=== PATIENT | male | born 1965 | race Caucasian/White ===

== ENCOUNTER 2017-12-30 13:18 | Emergency (ER) | payer OTHER ==
[~2017-12-30] VITALS: Ht 190.5 cm; Wt 120.0 kg
[~2017-12-30 13:18] MED LIST: ASPI-435 PO; CALC0.5C2 PO; CALC1TAB23 PO; CHOL1CAP57 PO; CLON0.5T3 PO; EPOE20005 SC; FLUD0.1T10 PO; FOLI1TAB8 PO; GABA100C13 PO; LANT1000 PO; LOSA1TAB PO; METR250T PO; MIDO10TA PO; OMEG5CAP PO; ROSU5TAB PO; SENN-91 PO; SORB70SO6 PO; TAMS0.4C38 PO; [UNRECOGNIZED DRUG - OTHER] PO
[2017-12-30 13:21] VITALS: TEMP 36.6; Ht 190.5 cm; Wt 120.0 kg
--- NOTE | 2017-12-30 14:00 | EMERGENCY ROOM VISIT NOTE ---
History First contact with patient: 13:30 Chief Complaint: WOUND INFECTION Stated Complaint: INFECTING/ PAIN - BACK History of Present Illness The patient is a 52 year old male who presents to the Emergency Room with complaints of skin draining abscess and infection that has been there since Tuesday. Was seen in [facility] for drainage and culture, staph infection, they told him to seek immediate care at the ED. Unclear what the results of the culture are. Pt denies constitutional symptoms of fever, fatigue , myalgia, also denies difficulty breathing or chest pain or diarrhea or vomiting. Says his daughter, who is his store clerk checker, changed the dressing this morning and says it is looking worse. Reports to the attending that he experienced chills and fevers last night. Review of Systems ROS See HPI for pertinent positives and negatives. Past Medical/Surgical History Medical Problems: (1) Autonomic neuropathy (2) Diabetes (3) Gastroparesis (4) Peritoneal dialysis catheter in situ (5) Peritoneal dialysis status (6) Pneumonia (7) Renal failure Surgical Problems: (1) Hx of cataract surgery Family History Cancer Diabetes mellitus Heart disease Hypertension Social History Smoking Status: Never Smoker Marital Status: Housing Status: lives with family Current/Historical Medications Scheduled Amitriptyline HCl (Amitriptyline HCl), 1 TAB PO HS Amlodipine Besylate (Amlodipine Besylate), 1 TAB PO DAILY Aspirin (Aspirin 81), 1 TAB PO QAM B-Complex W/ C & Folic Acid (Nephro-Ron Rx), 1 TAB PO DAILY Capsaicin (Capsaicin), 1 APPLN TOP TID Cephalexin (Keflex), 1 CAP PO BID Cholecalciferol (Vitamin D3), 1 CAP PO QPM Ferric Citrate (Auryxia), 3 TAB PO TID Fluticasone Propionate (Fluticasone Propionate), 2 SPRAYS MOHAMUD DAILY Folic Acid (Folvite), 400 MCG PO DAILY Hydroxyzine HCl (Hydroxyzine HCl), 12.5 MG PO HS Insulin Glargine (Lantus), 42 UNITS SC QPM Insulin Lispro (Human) (Humalog Kwikpen), 14 UNITS SC WM Losartan Potassium (Cozaar), 1 TAB PO QPM Metoprolol Tartrate (Metoprolol Tartrate), 1 TAB PO BID [place]-3 Fatty Acids (Fish Oil 1200 mg), 1 CAP PO QAM Pregabalin (Lyrica), 1 CAP PO DAILY Rosuvastatin Calcium (Rosuvastatin Calcium), 1 TAB PO QPM Sennosides-Docusate Sodium (Senna S), 1 TAB PO BID Tamsulosin HCl (Tamsulosin HCl), 1 CAP PO HS Triamcinolone Acet (Triamcinolone Acetonide), 1 APPLN TOP BID Trimethoprim/Sulfamethoxazole (Bactrim 400MG/80MG), 1 TAB PO Q24H Physical Exam Vital Signs Date Time Temp Pulse Resp B/P (MAP) Pulse Ox O2 Delivery O2 Flow Rate FiO2 12/30/17 15:33 74 18 172/94 97 Room Air 12/30/17 14:18 76 18 98 Room Air 12/30/17 14:01 77 12/30/17 14:00 183/85 12/30/17 13:21 36.6 83 18 152/66 96 Room Air Physical Exam GENERAL: Awake, alert, in no distress HENT: Normocephalic, atraumatic. EYES: Normal conjunctiva. Sclera non-icteric. NECK: Supple. FROM. No JVD. RESPIRATORY: Clear to auscultation. CARDIAC: Regular rate, normal rhythm. Extremities warm and well perfused. Pulses equal. ABDOMEN: Soft, non-distended. No tenderness to palpation. No rebound or guarding. No masses. MUSCULOSKELETAL: 6x3cm indurated region, minimal discharge on superior portion of wound, no fluctuance on left mid-upper back. NEURO: No motor deficits noted. SKIN: No rash or jaundice noted. Medical Decision & Procedures Laboratory Results 12/30/17 14:25 Red Blood Count 3.58, Mean Corpuscular Volume 91.3, Mean Corpuscular Hemoglobin 31.3, Mean Corpuscular Hemoglobin Concent 34.3, Mean Platelet Volume 9.6, Neutrophils (%) (Auto) 74.7, Lymphocytes (%) (Auto) 12.7, Monocytes (%) (Auto) 7.7, Eosinophils (%) (Auto) 4.5, Basophils (%) (Auto) 0.2, Neutrophils # (Auto) 9.20, Lymphocytes # (Auto) 1.56, Monocytes # (Auto) 0.95, Eosinophils # (Auto) 0.55, Basophils # (Auto) 0.02 3/30/18 14:25 Test 12/30/17 14:25 White Blood Count 12.30 K/uL (4.8-10.8) Red Blood Count 3.58 M/uL (4.7-6.1) Hemoglobin 11.2 g/dL (14.0-18.0) Hematocrit 32.7 % (42-52) Mean Corpuscular Volume 91.3 fL (80-100) Mean Corpuscular Hemoglobin 31.3 pg (25-34) Mean Corpuscular Hemoglobin Concent 34.3 g/dl (32-36) Platelet Count 306 K/uL (130-400) Mean Platelet Volume 9.6 fL (7.4-10.4) Neutrophils (%) (Auto) 74.7 % Lymphocytes (%) (Auto) 12.7 % Monocytes (%) (Auto) 7.7 % Eosinophils (%) (Auto) 4.5 % Basophils (%) (Auto) 0.2 % Neutrophils # (Auto) 9.20 K/uL (1.4-6.5) Lymphocytes # (Auto) 1.56 K/uL (1.2-3.4) Monocytes # (Auto) 0.95 K/uL (0.11-0.59) Eosinophils # (Auto) 0.55 K/uL (0-0.5) Basophils # (Auto) 0.02 K/uL (0-0.2) RDW Standard Deviation 44.6 fL (36.4-46.3) RDW Coefficient of Variation 13.5 % (11.5-14.5) Immature Granulocyte % (Auto) 0.2 % Immature Granulocyte # (Auto) 0.02 K/uL (0.00-0.02) Prothrombin Time 12.1 SECONDS (9.0-12.0) Prothromb Time International Ratio 1.2 (0.9-1.1) Activated Partial Thromboplast Time 28.8 SECONDS (21.0-31.0) Partial Thromboplastin Ratio 1.1 Anion Gap 7.0 mmol/L (3-11) Est Creatinine Clear Calc Drug Dose 30.8 ml/min Estimated GFR () 19.3 Estimated GFR (Non- 16.7 BUN/Creatinine Ratio 3.5 (10-20) Calcium Level 9.3 mg/dl (8.5-10.1) Beta-Hydroxybutyric Acid 0.71 mg/dL (0.2-2.81) Medications Administered Medications (Trade) Dose Ordered Sig/Huyen Route Start Time Stop Time Status Last Admin Dose Admin Cefazolin Sodium (Cefazolin 1000mg Iv Push) 1,000 mg NOW STAT IV 12/30/17 15:06 12/30/17 15:13 DC 12/30/17 15:32 1,000 MG Procedure USG of wound:L EXTREMITY NONVASCULAR LIMITED CLINICAL HISTORY: 52 years-old Male presenting with Back eval for abscess. TECHNIQUE: Real-time grayscale Doppler ultrasound imaging of the right posterior back was performed for a focused evaluation at the site of clinical concern. Color Doppler ultrasound imaging was also performed. COMPARISON: None. FINDINGS: Extensive skin thickening and subcutaneous edema in the region of clinical interest. Irregularity of the cutis and subcutaneous tissue focally at the site of greatest and duration. Subcentimeter collection measuring 3 x 3 x 4 mm less than 1 cm from the skin surface immediately lateral to the site of greatest induration. IMPRESSION: 1. Findings consistent with cellulitis with a focal subcentimeter collection suggesting early abscess. No sizable drainable collection. Electronically signed by: Cristian Zepeda M.D. 12/30/2017 3:11 PM Dictated Date/Time: 12/30/2017 3:08 PM ED Course 1332 Reviewed records, resident saw and assessed pt 1345 Ordered basic labs cbc and PRP 1358 [facility] called [facility]. No answer there. 1512 Ordered 1gm Ancef to be given. CBC notable for slightly elevated WBC. Elev creatinine. Medical Decision The patient is a 52 year old male who presents to the Emergency Room with complaints of skin draining abscess and infection that has been there since Tuesday. Was seen in [facility] for drainage and culture, staph infection, they told him to seek immediate care at the ED. Unclear what the results of the culture are. Pt denies constitutional symptoms of fever, fatigue , myalgia, also denies difficulty breathing or chest pain or diarrhea or vomiting. Says his daughter, who is his store clerk checker, changed the dressing this morning and says it is looking worse. Pt received hemodialysis this morning. Reports to the attending that he experienced chills and fevers last night. Diff dx: cellulitis, abscess, furuncle. USG shows early abscess formation, but no drainable fluid present. WBC notable for 12.3. Creat is at baseline, pt is on hemodialysis M/W/F. Results of imaging with pt, as well as preliminary cultures received from [email or web address]. Given 1gm IV Ancef here. Sent script for Bactrim and Keflex with instructions for hemodialysis dosing (to be taken after hemodialysis) as discussed with pharmacist Elsie here. Pt verbalized understanding and agreement , medically stable for discharge. Impression Primary Impression: Cellulitis Departure Information Dispostion Home / Self-Care Condition GOOD Prescriptions Trimethoprim/Sulfamethoxazole (BACTRIM 400MG/80MG) 1 Ea Tab 1 TAB PO Q24H for 10 Days, #11 TAB Take 2 tabs on day 1. Then take 1 tab daily till empty. On dialysis days, take AFTER dialysis is finished. Prov: Dyan Garcia M.D. 12/30/17 Cephalexin (KEFLEX) 250 Mg Cap 1 CAP PO BID for 9 Days, #18 CAP On days of dialysis, take AFTER your dialysis treatment is finished. Prov: Dyan Garcia M.D. 12/30/17 Referrals Kelvin Schulte D.O. (PCP) Patient Instructions My [facility] Resident Tracking Resident Involvement: Resident Care Provided Care Provided: Adult ED
[2017-12-30] MEDS ORDERED: NRV/10 PO (14:18)
[2017-12-30] MEDS ORDERED: FLM4 PO (14:18)
[2017-12-30] MEDS ORDERED: AMT25 PO (14:18)
[2017-12-30] MEDS ORDERED: ATR25 PO (14:18)
[2017-12-30] MEDS ORDERED: B-COTAB83 PO (14:18)
[2017-12-30] MEDS ORDERED: FLNIN/ NAE (14:18)
[2017-12-30] MEDS ORDERED: INSU100I2 SC (14:18)
[2017-12-30] MEDS ORDERED: PREG75CA PO (14:18)
[2017-12-30] MEDS ORDERED: METO50TA17 PO (14:18)
[2017-12-30] MEDS ORDERED: LOSA100T65 PO (14:18)
[2017-12-30] MEDS ORDERED: [UNRECOGNIZED DRUG - CODE] OTB (14:18)
[2017-12-30] MEDS ORDERED: ROSU10TA35 PO (14:18)
[2017-12-30] MEDS ORDERED: FERR1TAB68 PO (14:18)
[2017-12-30] MEDS ORDERED: CAPS0.022 TOP (14:18)
[2017-12-30] MEDS ORDERED: TRMO180 TOP (14:18)
[2017-12-30 14:32] LABS: BASO % 0.2 %; BASO ABS # 0.02 K/uL (0-0.2); EOS % 4.5 %; EOS ABS # 0.55 K/uL (0-0.5); HEMATOCRIT 32.7 % (42-52); HEMOGLOBIN 11.2 g/dL (14.0-18.0); IG# 0.02 K/uL (0.00-0.02); LYMPH % 12.7 %; LYMPH ABS # 1.56 K/uL (1.2-3.4); MEAN CELL VOLUME 91.3 fL (80-100); MEAN CORPUSCULAR HEMOGLOBIN 31.3 pg (25-34); MEAN CORPUSCULAR HGB CONC 34.3 g/dl (32-36); MEAN PLATELET VOLUME 9.6 fL (7.4-10.4); MONO % 7.7 %; MONO ABS # 0.95 K/uL (0.11-0.59); NEUT % 74.7 %; PLATELET COUNT 306 K/uL (130-400); RED CELL DISTRIBUTION WIDTH CV 13.5 % (11.5-14.5); RED CELL DISTRIBUTION WIDTH SD 44.6 fL (36.4-46.3)
[2017-12-30 14:41] LABS: INR 1.2 (0.9-1.1); PTT PATIENT 28.8 SECONDS (21.0-31.0)
[2017-12-30 14:48] LABS: CALCIUM 9.3 mg/dl (8.5-10.1); CREATININE 3.87 mg/dl (0.60-1.40); POTASSIUM 4.3 mmol/L (3.5-5.1)
[2017-12-30] MEDS ORDERED: CEFAZOLIN SOD 1000MG/7.5 ML IV PUSH IV STA (15:06)
--- NOTE | 2017-12-30 15:13 | DIAGNOSTIC IMAGING REPORT ---
L EXTREMITY NONVASCULAR LIMITED CLINICAL HISTORY: 52 years-old Male presenting with Back eval for abscess. TECHNIQUE: Real-time grayscale Doppler ultrasound imaging of the right posterior back was performed for a focused evaluation at the site of clinical concern. Color Doppler ultrasound imaging was also performed. COMPARISON: None. FINDINGS: Extensive skin thickening and subcutaneous edema in the region of clinical interest. Irregularity of the cutis and subcutaneous tissue focally at the site of greatest and duration. Subcentimeter collection measuring 3 x 3 x 4 mm less than 1 cm from the skin surface immediately lateral to the site of greatest induration. IMPRESSION: 1. Findings consistent with cellulitis with a focal subcentimeter collection suggesting early abscess. No sizable drainable collection. Electronically signed by: Cristian Zepeda M.D. 12/30/2017 3:11 PM Dictated Date/Time: 12/30/2017 3:08 PM
[2017-12-30] MEDS ORDERED: INSDGI SC (15:21)
[2017-12-30] MEDS ORDERED: FOLI400T41 PO (15:21)
[2017-12-30] MEDS ORDERED: SPT/ PO (16:04)
[2017-12-30] MEDS ORDERED: CEPH-570 PO (16:04)
[2017-12-30 16:25] VITALS: BP 135/80; PULSE 75; O2SAT 98
--- NOTE | 2017-12-30 17:57 | EMERGENCY ROOM VISIT NOTE ---
History Report prepared by Cynthia: Nico Vickers Under the Supervision of: Dr. Eledr Decker M.D. First contact with patient: 13:29 Chief Complaint: WOUND INFECTION Stated Complaint: INFECTING/ PAIN - BACK History of Present Illness The patient is a 52 year old male who presents to the Emergency Room with complaints of persistent wound on his back since December 28, 2017. He was recently seen by his PCP at that time due to a skin infection. He notes that it was cultured. He was not given any antibiotics at that time. 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 He notes that it was bothering him more last night when he would brush up against something. He notes that he may have had a fever last night, though he did not have a recorded temperature. He states that he could not get warm last night even though it was 80 degrees in his home. He called his PCP's office and they informed him that he had a staph infection and should come to the ED for further evaluation. He denies any vomiting or abdominal pain. He denies a prior history of abscesses. He is a dialysis patient. He had dialysis this morning. Source of History: patient Onset: since December 28, 2017 Position: back Quality: other (wound) Timing: other (persistent) Associated Symptoms: + fevers, No vomiting Note: He notes itchy skin. Review of Systems See HPI for pertinent positives & negatives. A total of 10 systems reviewed and were otherwise negative. Past Medical & Surgical Medical Problems: (1) Autonomic neuropathy (2) Diabetes (3) Gastroparesis (4) Peritoneal dialysis catheter in situ (5) Peritoneal dialysis status (6) Pneumonia (7) Renal failure Surgical Problems: (1) Hx of cataract surgery Family History Cancer Diabetes mellitus Heart disease Hypertension Social History Smoking Status: Never Smoker Marital Status: Housing Status: lives with family Current/Historical Medications Scheduled Amitriptyline HCl (Amitriptyline HCl), 1 TAB PO HS Amlodipine Besylate (Amlodipine Besylate), 1 TAB PO DAILY Aspirin (Aspirin 81), 1 TAB PO QAM B-Complex W/ C & Folic Acid (Nephro-Ron Rx), 1 TAB PO DAILY Capsaicin (Capsaicin), 1 APPLN TOP TID Cephalexin (Keflex), 1 CAP PO BID Cholecalciferol (Vitamin D3), 1 CAP PO QPM Ferric Citrate (Auryxia), 3 TAB PO TID Fluticasone Propionate (Fluticasone Propionate), 2 SPRAYS MOHAMUD DAILY Folic Acid (Folvite), 400 MCG PO DAILY Hydroxyzine HCl (Hydroxyzine HCl), 12.5 MG PO HS Insulin Glargine (Lantus), 42 UNITS SC QPM Insulin Lispro (Human) (Humalog Kwikpen), 14 UNITS SC WM Losartan Potassium (Cozaar), 1 TAB PO QPM Metoprolol Tartrate (Metoprolol Tartrate), 1 TAB PO BID [place]-3 Fatty Acids (Fish Oil 1200 mg), 1 CAP PO QAM Pregabalin (Lyrica), 1 CAP PO DAILY Rosuvastatin Calcium (Rosuvastatin Calcium), 1 TAB PO QPM Sennosides-Docusate Sodium (Senna S), 1 TAB PO BID Tamsulosin HCl (Tamsulosin HCl), 1 CAP PO HS Triamcinolone Acet (Triamcinolone Acetonide), 1 APPLN TOP BID Trimethoprim/Sulfamethoxazole (Bactrim 400MG/80MG), 1 TAB PO Q24H Allergies Coded Allergies: Ondansetron (Unverified Allergy, Intermediate, confusion, 12/30/17) BEE STING (Verified Allergy, Unknown, SHORTNESS OF BREATH, 12/30/17) Physical Exam Vital Signs Date Time Temp Pulse Resp B/P (MAP) Pulse Ox O2 Delivery O2 Flow Rate FiO2 12/30/17 16:25 75 16 135/80 98 12/30/17 15:33 74 18 172/94 97 Room Air 12/30/17 14:18 76 18 98 Room Air 12/30/17 14:01 77 12/30/17 14:00 183/85 12/30/17 13:21 36.6 83 18 152/66 96 Room Air Physical Exam Constitutional: Vital signs reviewed. Eyes: Pupils are equal round reactive to light. Conjunctiva are noninjected. ENT: Pharynx is clear without erythema or exudate. Mucous membranes are moist. Neck supple without meningeal signs. Respiratory: Clear to auscultation bilaterally. Breath sounds are equal bilaterally. Cardiovascular: Regular rate and rhythm. No rubs or gallops. GI: Soft, nondistended and nontender. Bowel sounds are present. Musculoskeletal: Left upper back: 6 x 3 cm erythematous indurated region with minimal discharge on superior portion of the wound. No fluctuance. Integumentary: No cyanosis. As above. Neurological: The patient is awake and alert. No focal deficits. Psychiatric: Normal affect. Medical Decision & Procedures ER Provider Diagnostic Interpretation: Radiology results as stated below per my review and the radiologist's interpretation: L EXTREMITY NONVASCULAR LIMITED CLINICAL HISTORY: 52 years-old Male presenting with Back eval for abscess. TECHNIQUE: Real-time grayscale Doppler ultrasound imaging of the right posterior back was performed for a focused evaluation at the site of clinical concern. Color Doppler ultrasound imaging was also performed. COMPARISON: None. FINDINGS: Extensive skin thickening and subcutaneous edema in the region of clinical interest. Irregularity of the cutis and subcutaneous tissue focally at the site of greatest and duration. Subcentimeter collection measuring 3 x 3 x 4 mm less than 1 cm from the skin surface immediately lateral to the site of greatest induration. IMPRESSION: 1. Findings consistent with cellulitis with a focal subcentimeter collection suggesting early abscess. No sizable drainable collection. Electronically signed by: Cristian Zepeda M.D. 12/30/2017 3:11 PM Dictated Date/Time: 12/30/2017 3:08 PM Laboratory Results 12/30/17 14:25 Red Blood Count 3.58, Mean Corpuscular Volume 91.3, Mean Corpuscular Hemoglobin 31.3, Mean Corpuscular Hemoglobin Concent 34.3, Mean Platelet Volume 9.6, Neutrophils (%) (Auto) 74.7, Lymphocytes (%) (Auto) 12.7, Monocytes (%) (Auto) 7.7, Eosinophils (%) (Auto) 4.5, Basophils (%) (Auto) 0.2, Neutrophils # (Auto) 9.20, Lymphocytes # (Auto) 1.56, Monocytes # (Auto) 0.95, Eosinophils # (Auto) 0.55, Basophils # (Auto) 0.02 12/30/17 14:25 Test 12/30/17 14:25 White Blood Count 12.30 K/uL (4.8-10.8) Red Blood Count 3.58 M/uL (4.7-6.1) Hemoglobin 11.2 g/dL (14.0-18.0) Hematocrit 32.7 % (42-52) Mean Corpuscular Volume 91.3 fL (80-100) Mean Corpuscular Hemoglobin 31.3 pg (25-34) Mean Corpuscular Hemoglobin Concent 34.3 g/dl (32-36) Platelet Count 306 K/uL (130-400) Mean Platelet Volume 9.6 fL (7.4-10.4) Neutrophils (%) (Auto) 74.7 % Lymphocytes (%) (Auto) 12.7 % Monocytes (%) (Auto) 7.7 % Eosinophils (%) (Auto) 4.5 % Basophils (%) (Auto) 0.2 % Neutrophils # (Auto) 9.20 K/uL (1.4-6.5) Lymphocytes # (Auto) 1.56 K/uL (1.2-3.4) Monocytes # (Auto) 0.95 K/uL (0.11-0.59) Eosinophils # (Auto) 0.55 K/uL (0-0.5) Basophils # (Auto) 0.02 K/uL (0-0.2) RDW Standard Deviation 44.6 fL (36.4-46.3) RDW Coefficient of Variation 13.5 % (11.5-14.5) Immature Granulocyte % (Auto) 0.2 % Immature Granulocyte # (Auto) 0.02 K/uL (0.00-0.02) Prothrombin Time 12.1 SECONDS (9.0-12.0) Prothromb Time International Ratio 1.2 (0.9-1.1) Activated Partial Thromboplast Time 28.8 SECONDS (21.0-31.0) Partial Thromboplastin Ratio 1.1 Anion Gap 7.0 mmol/L (3-11) Est Creatinine Clear Calc Drug Dose 30.8 ml/min Estimated GFR () 19.3 Estimated GFR (Non- 16.7 BUN/Creatinine Ratio 3.5 (10-20) Calcium Level 9.3 mg/dl (8.5-10.1) Beta-Hydroxybutyric Acid 0.71 mg/dL (0.2-2.81) Laboratory results as reviewed by me. Medications Administered Medications (Trade) Dose Ordered Sig/Huyen Route Start Time Stop Time Status Last Admin Dose Admin Cefazolin Sodium (Cefazolin 1000mg Iv Push) 1,000 mg NOW STAT IV 12/30/17 15:06 12/30/17 15:13 DC 12/30/17 15:32 1,000 MG ED Course 1347: The patient was evaluated in room C11B. A complete history and physical exam was performed. 1310: Dr. Garcia reassessed the patient at this time. She notes the patient informed her that he had hemodialysis this morning. 1506: Ordered Cefazolin Sodium 1,000 mg IV 1520: I reassessed the patient at this time. I discussed the results and treatment plan with the patient. I answered all pertaining questions that he had. He expressed understanding and verbalized agreement. The patient will be discharged home. Medical Decision This is a 52-year-old male who presents with an infection to his back. Differential diagnosis includes MRSA, abscess, cellulitis, bacteremia. I did perform a limited focused review of portions of the patient's old chart on the electronic medical record. The patient has had no recent pertinent visits to this hospital. Resident Physician Supervision Note: I did evaluate and examine this patient myself. I did guide management for the patient. I agree with the resident's Dr. Garcia assessment as discussed. Please see the resident's dictation for further details. I did evaluate the patient as noted above. The patient appears to have cellulitis as well as a possible early abscess in the back. We did obtain records from the [facility] and apparently the patient's culture grew out staph aureus. They did not identify the organism further. IV access was established. I did order and review the patient's blood work as noted in the electronic medical record. I did order an ultrasound of the back. I did review the images myself as well as the radiology report as described above. He has a subcentimeter fluid collection but nothing drainable. The patient was treated with Ancef IV. He was also given Bactrim. He was informed of his test results and he was discharged with a 10 day course of Keflex and Bactrim with renal dosing. Medication Reconcilliation Current Medication List: was personally reviewed by me Blood Pressure Screening Patient's blood pressure: Elevated blood pressure Blood pressure disposition: Referred to PCP Impression Primary Impression: Cellulitis of back Additional Impressions: End stage renal disease Abscess Scribe Attestation The scribe's documentation has been prepared under my direct and personally reviewed by me in its entirety. I confirm that the note above accurately reflects all work, treatment, procedures, and medical decision making performed by me. Departure Information Dispostion Home / Self-Care Prescriptions Trimethoprim/Sulfamethoxazole (BACTRIM 400MG/80MG) 1 Ea Tab 1 TAB PO Q24H for 10 Days, #11 TAB Take 2 tabs on day 1. Then take 1 tab daily till empty. On dialysis days, take AFTER dialysis is finished. Prov: Dyan Garcia M.D. 12/30/17 Cephalexin (KEFLEX) 250 Mg Cap 1 CAP PO BID for 9 Days, #18 CAP On days of dialysis, take AFTER your dialysis treatment is finished. Prov: Dyan Garcia M.D. 12/30/17 Referrals Kelvin Schulte D.O. (PCP) Forms HOME CARE DOCUMENTATION FORM, IMPORTANT VISIT INFORMATION, WORK / SCHOOL INSTRUCTIONS Patient Instructions Cellulitis Dc, My [facility] Additional Instructions You have been examined and treated today on an emergency basis only. This is not a substitute for, or an effort to provide, complete comprehensive medical care. It is impossible to recognize and treat all injuries or illnesses in a single emergency department visit. It is therefore important that you follow up closely with your physician next week. Call as soon as possible for an appointment. Return for worsening symptoms or if you develop fever, vomiting, or any other concerning symptoms. Problem Qualifiers
== END 2017-12-30 16:25 | disposition home or self-care (01) ==
LOC: C.EDB 13:19 → C.EDC 16:25
DX: L03.312 Cellulitis of back [any part except buttock and flank] (principal); L02.212 Cutaneous abscess of back [any part, except buttock and flank]; B95.8 Unspecified staphylococcus as the cause of diseases classified elsewhere; E11.22 Type 2 diabetes mellitus with diabetic chronic kidney disease; N18.6 End stage renal disease; Z99.2 Dependence on renal dialysis; R03.0 Elevated blood-pressure reading, without diagnosis of hypertension; E11.43 Type 2 diabetes mellitus with diabetic autonomic (poly)neuropathy; K31.84 Gastroparesis; Z79.4 Long term (current) use of insulin; Z79.82 Long term (current) use of aspirin; Z88.8 Allergy status to other drugs, medicaments and biological substances; Z91.030 Bee allergy status

== ENCOUNTER 2020-05-29 23:41 | Inpatient (IN) ==
--- OUTSIDE RECORDS SUMMARY | 2020-05-29 23:44 | External Medical Summary | Continuity of Care Document ---
:1965 Author Name Marvel Kelly Address Unavailable Unavailable , Care Team Providers Name Role Phone Cornelio Rosas M.D. Unavailable [email or web address] PCP, UNKNOWN Unavailable Unavailable Problems Active medical history not documented Allergies and Adverse Reactions Allergy history not documented Medications Medications not documented Procedures Procedures not documented Immunizations Immunizations not documented Plan of Treatment Planned Observations Planned Goals not documented Results No Known Results Results not documented
--- OUTSIDE RECORDS SUMMARY | 2020-05-29 23:44 | External Medical Summary | Continuity of Care Document ---
:1965 Author Name Marvel Kelly Address Unavailable Unavailable , Care Team Providers Name Role Phone Cornelio Rosas M.D. Unavailable [email or web address] PCP, UNKNOWN Unavailable Unavailable Problems Active medical history not documented Allergies and Adverse Reactions Allergy history not documented Medications Medications not documented Procedures Procedures not documented Immunizations Immunizations not documented Plan of Treatment Planned Observations Planned Goals not documented Results No Known Results Results not documented
[2020-05-30] MEDS ORDERED: cefTRIAXone SODIUM 2,000 MG/70 ML BAG IV STA (00:04)
--- NOTE | 2020-05-30 00:18 | Emergency Department Note ---
History of Present Illness General Chief complaint: Infection, Wound Stated complaint: CUT ON FINGER History of Present Illness Maximum Pain Intensity: 6 This 54-year-old diabetic on immune suppressants with a history of kidney transplant presents to the ER complaining of finger infection Location: Left middle finger Quality: Throbbing Severity: Moderate Duration: Past 2 days Timing: Patient cut his finger 2 weeks ago Context: Symptoms got worse and patient came in Modifying factors: better with rest; worse with activity Patient states he accidentally cut himself 2 weeks ago. Patient states for the past 2 days has become more red painful and swollen. He is a diabetic. He is on immunosuppressants for kidney transplant. Patient went to urgent care was placed on doxycycline today. Tetanus is current. Patient denies fevers, vomiting, red streaking up the arm. Patient states is quite painful for him to bend the finger. Home Medications Home Medications Medication Instructions Recorded Confirmed Type amitriptyline 25 mg PO HS 09/11/19 05/30/20 History aspirin [Aspirin Low Dose] 81 mg PO DAILY 09/11/19 05/30/20 History epinephrine [EpiPen] 0.3 mg SUBCUT UD PRN 09/11/19 05/30/20 History glucagon (human recombinant) 1 mg SUBCUT UD PRN 09/11/19 05/30/20 History [Glucagon Emergency Kit (human)] insulin glargine [Basaglar KwikPen 62 unit SUBCUT BID 09/11/19 05/30/20 History U-100 Insulin] insulin lispro [Humalog KwikPen 24 unit SUBCUT AC MDD 100 units 09/11/1905/30 History Insulin] per day lidocaine [Lidoderm] 1 patch TOPICAL Q24H PRN 09/11/19 05/30/20 History rosuvastatin [Crestor] 10 mg PO DAILY 09/11/19 05/30/20 History tamsulosin [Flomax] 0.4 mg PO DAILY 09/11/19 05/30/20 History amlodipine 10 mg PO DAILY 05/29/20 05/30/20 History diltiazem HCl 240 mg PO DAILY 05/29/20 05/30/20 History doxycycline hyclate 100 mg PO BID 05/29/20 05/30/20 History metoprolol tartrate 50 mg PO BID 05/30/20 05/30/20 History mycophenolate sodium 360 mg PO BID 05/30/20 05/30/20 History pregabalin 150 mg PO DAILY 05/30/20 05/30/20 History Allergies Allergy/AdvReac Type Severity Reaction Status Date / Time ondansetron Allergy Intermediate confusion Unverified 05/30/20 00:10 bee venom protein (honey bee) Allergy Unknown SHORTNESS Verified 05/30/20 00:10 OF BREATH Past Med/Surg History Medical History Autonomic neuropathy Diabetes Gastroparesis History of peritoneal dialysis Peritoneal dialysis catheter in situ Renal failure Surgical History Hx of kidney transplant Family History Other Family history non-contributory Social History Smoking Status: Never smoker Preferred Language: Frisian marital status: Current Living Situation: Spouse Feels Safe at Home: Yes Review of Systems A total of 10 systems reviewed and were otherwise negative Physical Exam Vital Signs Vital Signs - 24 hr 05/29/20 23:45 05/30/20 01:15 Temperature 36.6 C Temperature Source Oral Pulse Rate 88 77 Pulse Rate [Finger] 77 Pulse Rhythm Regular Pulse Rhythm [Finger] Regular Pulse Strength [Finger] Normal Respiratory Rate 18 18 Respiratory Effort / Characteristics Normal for Patient Non-Labored Spontaneous Respiratory Depth Normal Normal Respiratory Pattern Regular Blood Pressure 121/74 Blood Pressure [Right Arm] 156/79 H Blood Pressure Mean 89 Blood Pressure Mean [Right Arm] 104 Blood Pressure Position Sitting Blood Pressure Position [Right Arm] Lying Pulse Oximetry 100 98 Oxygen Delivery Method Room Air Room Air Sepsis Recent Fever Within 48 Hours Yes Sepsis New/Unexplained Change in Mental Status N/A Sepsis Action Taken by Nursing No Action Required VITALS: Vitals are noted on the nurse's note and reviewed by myself. Vital signs stable. GENERAL: Pleasant male, in no acute distress, nondiaphoretic, well-developed well-nourished. SKIN: Capillary reflex less than 2 seconds. HEENT: Normocephalic. PERRLA. EOMI. Nares patent. Mucous membranes moist. Neck is supple without nuchal rigidity. HEART: Regular rate and rhythm LUNGS: Clear to auscultation bilaterally without wheezes, rales or rhonchi. No retractions or accessory muscle use. ABDOMEN: Positive bowel sounds x 4. Normal tympanic percussion. Soft, nontender, without masses or organomegaly. Ortiz sign negative. No guarding or rebound tenderness. MUSCULOSKELETAL: No gross musculoskeletal defects. Left hand middle finger volar aspect erythematous and edematous unable to fully bend or extend the fing er. Wound with purulent drainage and bone exposure. No lymphangitis. The rest the fingers full range of motion. NEURO: Patient was alert and oriented to person place and time. No focal neurological deficits. Course Administered Medications Discontinued Medications Acetaminophen (Acetaminophen 1000 Mg/100 Ml Iv) Confirm Administered Dose 1,000 mg IV .GroupCard-MED ONE Stop: 05/30/20 01:58 Last Admin: 05/30/20 02:02 Dose: 1,000 mg Documented by: [id number] Ceftriaxone Sodium (Rocephin) 2,000 mg in 70 mls @ 140 mls/hr IV NOW STA Stop: 05/30/20 00:33 Last Infusion: 05/30/20 01:56 Dose: 0 mls/hr Documented by: [id number] Admin: 05/30/20 01:17 Dose: 140 mls/hr Documented by: [id number] Acetaminophen (Ofirmev) 1,000 mg in 100 mls @ 400 mls/hr IV NOW STA Stop: 05/30/20 02:08 Last Admin: 05/30/20 02:02 Dose: Not Given Documented by: [id number] Medical Decision Making Medical Records Attestation: I reviewed the patient's medical records. Home Medications Current Medication List: was personally reviewed by me Laboratory Data Attestation: I reviewed the patient's lab results. Result diagrams: 05/30/20 00:30 05/30/20 00:30 Lab Results 05/30/20 05/30/20 05/30/20 Range/Units 00:30 00:30 00:30 WBC 6.61 (4.8-10.8) K/uL RBC 5.64 (4.7-6.1) M/uL Hgb 16.5 (14.0-18.0) g/dL Hct 48.8 (42-52) % MCV 86.5 (80-100) fL MCH 29.3 (25-34) pg MCHC 33.8 (32-36) g/dL RDW Std Deviation 44.6 (36.4-46.3) fL RDW Coeff of Dandre 14.2 (11.5-14.5) % Plt Count 264 (130-400) K/uL MPV 9.9 (7.4-10.4) fL Immature Gran % (Auto) 1.1 % Neut % (Auto) 61.0 % Lymph % (Auto) 25.9 % Rapides % (Auto) 8.9 % Eos % (Auto) 2.9 % Baso % (Auto) 0.2 % Neut # (Auto) 4.04 (1.4-6.5) K/uL Lymph # (Auto) 1.71 (1.2-3.4) K/uL Rapides # (Auto) 0.59 (0.11-0.59) K/uL Eos # (Auto) 0.19 (0-0.5) K/uL Baso # (Auto) 0.01 (0-0.2) K/uL Immature Gran # (Auto) 0.07 H (0.00-0.02) K/uL ESR 26 H (0-14) mm/hr PT 11.3 (9.0-12.0) Seconds INR 1.1 (0.9-1.1) APTT 29.9 (21.0-31.0) Seconds PTT Ratio 1.1 Sodium (136-145) mmol/L Potassium (3.5-5.1) mmol/L Chloride (98-107) mmol/L Carbon Dioxide (21-32) mmol/L Anion Gap (3-11) BUN (7-18) mg/dl Creatinine (0.6-1.4) mg/dl Est Cr Clr Drug Dosing ml/min Est GFR ( Amer) Est GFR (Non-Af Amer) BUN/Creatinine Ratio (10-20) Glucose (70-99) mg/dl Lactate (0.4-2.0) mmol/L Calcium (8.5-10.1) mg/dl Total Bilirubin (0.2-1) mg/dl AST (15-37) U/L ALT (12-78) U/L Alkaline Phosphatase (45-117) U/L C-Reactive Protein (0-0.29) mg/dl Total Protein (6.4-8.2) gm/dl Albumin (3.4-5.0) gm/dl Globulin (2.5-4.0) gm/dl Albumin/Globulin Ratio (0.9-2) Specimen Hemolysis 05/30/20 05/30/20 Range/Units 00:30 00:30 WBC (4.8-10.8) K/uL RBC (4.7-6.1) M/uL Hgb (14.0-18.0) g/dL Hct (42-52) % MCV (80-100) fL MCH (25-34) pg MCHC (32-36) g/dL RDW Std Deviation (36.4-46.3) fL RDW Coeff of Dandre (11.5-14.5) % Plt Count (130-400) K/uL MPV (7.4-10.4) fL Immature Gran % (Auto) % Neut % (Auto) % Lymph % (Auto) % Rapides % (Auto) % Eos % (Auto) % Baso % (Auto) % Neut # (Auto) (1.4-6.5) K/uL Lymph # (Auto) (1.2-3.4) K/uL Rapides # (Auto) (0.11-0.59) K/uL Eos # (Auto) (0-0.5) K/uL Baso # (Auto) (0-0.2) K/uL Immature Gran # (Auto) (0.00-0.02) K/uL ESR (0-14) mm/hr PT (9.0-12.0) Seconds INR (0.9-1.1) APTT (21.0-31.0) Seconds PTT Ratio Sodium 135 L (136-145) mmol/L Potassium 4.0 (3.5-5.1) mmol/L Chloride 103 (98-107) mmol/L Carbon Dioxide 26 (21-32) mmol/L Anion Gap 6.0 (3-11) BUN 18 (7-18) mg/dl Creatinine 1.37 (0.6-1.4) mg/dl Est Cr Clr Drug Dosing 84.9 ml/min Est GFR ( Amer) 66.8 Est GFR (Non-Af Amer) 57.7 BUN/Creatinine Ratio 13.0 (10-20) Glucose 241 H (70-99) mg/dl Lactate 1.3 (0.4-2.0) mmol/L Calcium 9.9 (8.5-10.1) mg/dl Total Bilirubin 0.4 (0.2-1) mg/dl AST 19 (15-37) U/L ALT 29 (12-78) U/L Alkaline Phosphatase 93 (45-117) U/L C-Reactive Protein 0.71 H (0-0.29) mg/dl Total Protein 7.9 (6.4-8.2) gm/dl Albumin 3.8 (3.4-5.0) gm/dl Globulin 4.1 H (2.5-4.0) gm/dl Albumin/Globulin Ratio 0.9 (0.9-2) Specimen Hemolysis Imaging Data Attestation: I personally reviewed and interpreted this imaging study as follows: Blood Pressure Blood Pressure Findings: Normal blood pressure MDM Narrative Prior records reviewed and summarized as above. Triage Nursing notes reviewed. The patient's history was concerning for swelling and redness of the skin. Differential diagnosis: Etiologies such as osteomyelitis, cellulitis, abscess, MRSA infection, DVT, necrotizing fasciitis, dermatitis, drug eruption, as well as others were entertained.. Physical examination: As above ER treatment provided: Rocephin, vancomycin I swabbed the wound and was sent to lab. I did probe the wound and did feel bone. This was non-tender to the patient. On reassessment the patient felt better. Diagnostics interpreted by me: The labs revealed mildly elevated inflammatory markers. Negative lactic acid Wound culture pending Blood culture pending Imaging studies: Finger x-ray with soft tissue swelling without fracture or foreign body per my interpretation Consultation: A consultation was placed with Dr. Clark, hospitalist. The case was discussed and diagnostics were reviewed. The patient was evaluated in the ER for further treatment. This appears to be left middle finger infection with concerns for osteomyelitis. Wound culture was taken. Tetanus is reported as current per patient. Patient started on antibiotics. Medicine was consulted. Patient is agreeable to treatment plan of admission. By the evaluation outlined above emergent etiologies such as abscess, necrotizing fasciitis, DVT, as well as others were deemed relatively unlikely. The pt informed about the findings as listed above. All questions were answered and pleased with the treatment. The chart was completed utilizing [employer] Speech voice recognition software. Grammatical errors, random word insertions, pronoun errors, and incomplete sentences are an occassional consequence of this system due to software limitations, ambient noise, and hardware issues. Any formal questions or concerns about the content, text, or information contained within the body of this dictation should be directly addressed to the physician assistant activities director for clarification. Impression & Plan Finger infection, Failure of outpatient treatment, Diabetes mellitus with hyperglycemia Discharge Plan Visit Data Chief Complaint: Infection, Wound Stated Complaint: CUT ON FINGER ED Provider: Rico Nguyễn ED Midlevel Provider: Ibeth Fernandez Discharge Problem: Finger infection, Failure of outpatient treatment, Diabetes mellitus with hyperglycemia Patient Disposition: Being Evaluated by Hospitalist Condition: Good Forms Stand Alone Forms: [facility] Prescriptions Prescriptions: No Action aspirin [Aspirin Low Dose] 81 mg Tablet,Delayed Release (Dr/Ec) 81 mg PO DAILY RF: 0 amitriptyline 25 mg tablet 25 mg PO HS RF: 0 tamsulosin [Flomax] 0.4 mg capsule 0.4 mg PO DAILY RF: 0 lidocaine [Lidoderm] 5 % adhesive patch,medicated 1 patch topical Q24H PRN (Reason: Pain) RF: 0 Glucagon Emergency Kit (human) 1 mg recon soln 1 mg subcut UD PRN (Reason: Hypoglycemia) RF: 0 epinephrine [EpiPen] 0.3 mg/0.3 mL auto-injector 0.3 mg subcut UD PRN (Reason: Anaphylaxis) RF: 0 rosuvastatin [Crestor] 20 mg tablet 10 mg PO DAILY RF: 0 Basaglar KwikPen U-100 Insulin 100 unit/mL (3 mL) insulin pen 62 unit SUBCUT BID RF: 0 insulin lispro [Humalog KwikPen Insulin] 100 unit/mL insulin pen 24 unit SUBCUT AC MDD 100 units per day RF: 0 doxycycline hyclate 100 mg capsule 100 mg PO BID RF: 0 diltiazem HCl 240 mg capsule,extended release 24hr 240 mg PO DAILY RF: 0 amlodipine 10 mg tablet 10 mg PO DAILY RF: 0 metoprolol tartrate 50 mg tablet 50 mg PO BID RF: 0 mycophenolate sodium 180 mg tablet,delayed release (DR/EC) 360 mg PO BID RF: 0 pregabalin 150 mg capsule 150 mg PO DAILY RF: 0 Referrals Referrals: Kelvin Schulte [Primary Care Provider] -
[2020-05-30 00:55] LABS: INR 1.1 (0.9-1.1); Partial Thromboplastin Ratio 1.1; Partial Thromboplastin Time 29.9 Seconds (21.0-31.0); Prothrombin Time 11.3 Seconds (9.0-12.0)
[2020-05-30 01:03] LABS: Albumin Globulin Ratio 0.9 (0.9-2); Albumin Level 3.8 gm/dl (3.4-5.0); Bilirubin,Total 0.4 mg/dl (0.2-1); C Reactive Protein 0.71 mg/dl (0-0.29); Calcium 9.9 mg/dl (8.5-10.1); Creatinine Clr Calc Pharmacy 84.9 ml/min; Est GFR (African American) 66.8; Est GFR (Non-African American) 57.7; Globulin 4.1 gm/dl (2.5-4.0); Total Protein 7.9 gm/dl (6.4-8.2)
[2020-05-30] MEDS ORDERED: VANCOMYCIN CONSULT ACTIVE PRN (01:04)
[2020-05-30] MEDS ORDERED: VANCOMYCIN HCL 2,000 MG in SODIUM CHLORIDE 0.9% 500 ML IV ONE (01:04)
[2020-05-30 01:07] LABS: Basophils # (auto) 0.01 K/uL (0-0.2); Basophils % (auto) 0.2 %; Eosinophils # (auto) 0.19 K/uL (0-0.5); Eosinophils % (auto) 2.9 %; Hematocrit (blood only) 48.8 % (42-52); Hemoglobin 16.5 g/dL (14.0-18.0); Immature Granulocytes # (auto) 0.07 K/uL (0.00-0.02); Immature Granulocytes % (auto) 1.1 %; Lymphocytes # (auto) 1.71 K/uL (1.2-3.4); Lymphocytes % (auto) 25.9 %; Mean Corpuscular Hemoglobin 29.3 pg (25-34); Mean Corpuscular Hgb Conc 33.8 g/dL (32-36); Mean Corpuscular Volume 86.5 fL (80-100); Mean Platelet Volume 9.9 fL (7.4-10.4); Monocytes # (auto) 0.59 K/uL (0.11-0.59); Monocytes % (auto) 8.9 %; Neutrophils # (auto) 4.04 K/uL (1.4-6.5); Platelet Count 264 K/uL (130-400); RDW Coefficient of Variation 14.2 % (11.5-14.5); RDW Standard Deviation 44.6 fL (36.4-46.3); Red Blood Count 5.64 M/uL (4.7-6.1); White Blood Count 6.61 K/uL (4.8-10.8)
[2020-05-30] MEDS ORDERED: ACETAMINOPHEN 1,000 MG/100 ML VIAL IV STA (01:54)
[2020-05-30] MEDS ORDERED: ACETAMINOPHEN 1000 MG/100 ML IV IV ONE (01:57)
--- NOTE | 2020-05-30 03:25 | History & Physical Report ---
Date of Service May 30, 2020 Assessment & Plan (1) Finger infection: 54-year-old male with history of diabetes, status post renal transplant on immunosuppressive therapy presenting with wound to dorsal aspect of the left middle phalanges which occurred approximately 2 and half weeks ago with a knife. Wound appears to become infected over the last day. Patient presently afebrile, hemodynamically stable, no evidence of systemic infection. No evidence of lymphangitic streaking or infection spreading along fascial planes. Concern for acute osteomyelitis given depth and location of injury Admit to medical floor Check MRI left hand with and without contrast to assess for acute osteomyelitis. Antibiotic course and need for Ortho/hand consultation to be determined pending results of MRI Daptomycin and Zosyn Follow cultures Present on Admission?: Yes (2) Diabetes mellitus with hyperglycemia: Type 2 diabetes with long-term use of insulin. Blood sugar elevated today at 241. Continue insulin therapy. Will decrease to glargine 50 units twice daily (from 62 units twice daily) with insulin sliding scale Goal blood sugar 100-1 40 Check hemoglobin A1c Consistent carb diet as tolerated Continue Lyrica 150 mg p.o. daily Present on Admission?: Yes (3) Hx of kidney transplant: Patient status post renal transplant approximately 3 years ago. Reports no issues. Renal function is within normal limits. Patient is on mycophenolate mofetil and receives monthly infusion of Nulojix (belataceptselective T-cell growth stimulation kassy) Continue mycophenolate 360 mg p.o. twice daily Avoid nephrotoxic agents Present on Admission?: Yes (4) Hypertension: Blood pressure currently stable. Continue amlodipine 10 mg p.o. daily Continue diltiazem 240 mg p.o. daily Continue metoprolol 50 mg p.o. twice daily Present on Admission?: Yes (5) Hyperlipidemia: Chronic. Holding Crestor 10 mg daily while patient is on daptomycin FENHep-Lock, electrolytes within normal limits, consistent carb diet as tolerated ProphylaxisHeparin 5000 units subcu 3 times daily Codefull per discussion with patient's Dispositionadmission to medical floor Present on Admission?: Yes History of Present Illness Chief Complaint: Infection of finger Primary Care Provider: Kelvin Schulte Ramesh Tamez is a 54-year-old male with history of diabetes on insulin therapy, ESRD status post renal transplant 3 years ago on immunosuppressive therapy presenting with infection of the left third digit. Patient was sharpening a knife approximately 2-1/2 weeks ago when he cut the dorsal surface of the third middle phalanges of his left hand. He does not recall the cut going to bone. He states that it was healing well until approx imately 1-1/2 days ago when it became red and tender. He was seen in the acute care setting this afternoon and was given a prescription for doxycycline. Patient presents with fevers, chills, lymphangitic streaking. No additional complaintsspecifically, no chest pain, palpitations, abdominal pain, nausea, vomiting, abdominal pain, shortness of breath, dysuria. No recent travel or concerns for exposure to COVID-19. On arrival to the ER patient found to be afebrile, hemodynamically stable. Upon exam a small amount of pus was expressed from the wound, ER provider concerned due to depth of wound, possible probe to bone. ER course: Tylenol, ceftriaxone, vancomycin Allergies Allergy/AdvReac Type Severity Reaction Status Date / Time ondansetron Allergy Intermediate confusion Unverified 05/30/20 00:10 bee venom protein (honey bee) Allergy Unknown SHORTNESS Verified 05/30/20 00:10 OF BREATH Home Medications Home Medications Medication Instructions Recorded Confirmed Type amitriptyline 25 mg PO HS 09/11/19 05/30/20 History aspirin [Aspirin Low Dose] 81 mg PO DAILY 09/11/19 05/30/20 History epinephrine [EpiPen] 0.3 mg SUBCUT UD PRN 09/11/19 05/30/20 History glucagon (human recombinant) 1 mg SUBCUT UD PRN 09/11/19 05/30/20 History [Glucagon Emergency Kit (human)] insulin glargine [Basaglar KwikPen 62 unit SUBCUT BID 09/11/19 05/30/20 History U-100 Insulin] insulin lispro [Humalog KwikPen 24 unit SUBCUT AC MDD 100 units 09/11/19 05/30/20 History Insulin] per day lidocaine [Lidoderm] 1 patch TOPICAL Q24H PRN 09/11/19 05/30/20 History rosuvastatin [Crestor] 10 mg PO DAILY 09/11/19 05/30/20 History tamsulosin [Flomax] 0.4 mg PO DAILY 09/11/19 05/30/20 History amlodipine 10 mg PO DAILY 05/29/20 05/30/20 History diltiazem HCl 240 mg PO DAILY 05/29/20 05/30/20 History doxycycline hyclate 100 mg PO BID 05/29/20 05/30/20 History Nulojix 0 IV MONTHLY 05/30/20 History metoprolol tartrate 50 mg PO BID 05/30/20 05/30/20 History mycophenolate sodium 360 mg PO BID 05/30/20 05/30/20 History pregabalin 150 mg PO DAILY 05/30/20 05/30/20 History Past Med/Surg History Medical History (Updated 05/30/20 @ 03:22 by Aniya Clark DO) Diabetes Gastroparesis History of peritoneal dialysis Hypertension Surgical History (Updated 05/30/20 @ 03:08 by Aniya Clark DO) Hx of kidney transplant September 2017 Prema Albarran Family History Other Family history non-contributory Social History Smoking Status: Never smoker Preferred Language: Palestinian marital status: Current Living Situation: Spouse Feels Safe at Home: Yes Review of Systems Review of Systems: All systems reviewed & are unremarkable except as noted in HPI & below Physical Exam Physical Exam: General: patient resting comfortably, NAD, non-toxic in appearance, AA&O x 4 Skin: No rashes HEENT: NC/AT, PERRL, EOMI, anicteric sclera, conjunctiva without injection, external ear normal to inspection and nontender, nares patent, moist mucus membranes, dentition intact, no oropharyngeal lesions, neck supple, trachea midline, no LAD, no thyromegaly, no JVD Heart: +S1/S2, regular, no m/r/g Lungs: equal air entry bilaterally, no rales/rhonchi/wheezes Abd: +BS, soft, NT/ND, palpable transplant kidney right anterior abdomen, nontender Ext: warm, 2+ pulses in UE/LE bilaterally, no clubbing/cyanosis or edema, wound on left middle phalanges well-circumscribed, granulation tissue present, small amount of purulence expressed, surrounding erythema, no crepitus/bulla/lymphangitic streaking, Neuro: nonfocal, patient AA&O x 4, speech intact, no facial droop, moving all extremities on command with equal strength 5/5 Results & Data Results & Data ([facility]) Vital Signs (Past 12 Hours) Vital Signs Temp Pulse Pulse Resp BP BP Pulse Ox 05/30/20 02:09 77 18 151/78 H 99 05/30/20 01:15 77 77 18 156/79 H 98 05/29/20 23:45 36.6 C 88 18 121/74 100 Laboratory Results Lab Results 05/30/20 05/30/20 05/30/20 Range/Units 00:30 00:30 00:30 WBC 6.61 (4.8-10.8) K/uL RBC 5.64 (4.7-6.1) M/uL Hgb 16.5 (14.0-18.0) g/dL Hct 48.8 (42-52) % MCV 86.5 (80-100) fL MCH 29.3 (25-34) pg MCHC 33.8 (32-36) g/dL RDW Std Deviation 44.6 (36.4-46.3) fL RDW Coeff of Dandre 14.2 (11.5-14.5) % Plt Count 264 (130-400) K/uL MPV 9.9 (7.4-10.4) fL Immature Gran % (Auto) 1.1 % Neut % (Auto) 61.0 % Lymph % (Auto) 25.9 % Logan % (Auto) 8.9 % Eos % (Auto) 2.9 % Baso % (Auto) 0.2 % Neut # (Auto) 4.04 (1.4-6.5) K/uL Lymph # (Auto) 1.71 (1.2-3.4) K/uL Logan # (Auto) 0.59 (0.11-0.59) K/uL Eos # (Auto) 0.19 (0-0.5) K/uL Baso # (Auto) 0.01 (0-0.2) K/uL Immature Gran # (Auto) 0.07 H (0.00-0.02) K/uL ESR 26 H (0-14) mm/hr PT 11.3 (9.0-12.0) Seconds INR 1.1 (0.9-1.1) APTT 29.9 (21.0-31.0) Seconds PTT Ratio 1.1 Sodium (136-145) mmol/L Potassium (3.5-5.1) mmol/L Chloride (98-107) mmol/L Carbon Dioxide (21-32) mmol/L Anion Gap (3-11) BUN (7-18) mg/dl Creatinine (0.6-1.4) mg/dl Est Cr Clr Drug Dosing ml/min Est GFR ( Amer) Est GFR (Non-Af Amer) BUN/Creatinine Ratio (10-20) Glucose (70-99) mg/dl Lactate (0.4-2.0) mmol/L Calcium (8.5-10.1) mg/dl Total Bilirubin (0.2-1) mg/dl AST (15-37) U/L ALT (12-78) U/L Alkaline Phosphatase (45-117) U/L C-Reactive Protein (0-0.29) mg/dl Total Protein (6.4-8.2) gm/dl Albumin (3.4-5.0) gm/dl Globulin (2.5-4.0) gm/dl Albumin/Globulin Ratio (0.9-2) Specimen Hemolysis 05/30/20 05/30/20 Range/Units 00:30 00:30 WBC (4.8-10.8) K/uL RBC (4.7-6.1) M/uL Hgb (14.0-18.0) g/dL Hct (42-52) % MCV (80-100) fL MCH (25-34) pg MCHC (32-36) g/dL RDW Std Deviation (36.4-46.3) fL RDW Coeff of Dandre (11.5-14.5) % Plt Count (130-400) K/uL MPV (7.4-10.4) fL Immature Gran % (Auto) % Neut % (Auto) % Lymph % (Auto) % Logan % (Auto) % Eos % (Auto) % Baso % (Auto) % Neut # (Auto) (1.4-6.5) K/uL Lymph # (Auto) (1.2-3.4) K/uL Logan # (Auto) (0.11-0.59) K/uL Eos # (Auto) (0-0.5) K/uL Baso # (Auto) (0-0.2) K/uL Immature Gran # (Auto) (0.00-0.02) K/uL ESR (0-14) mm/hr PT (9.0-12.0) Seconds INR (0.9-1.1) APTT (21.0-31.0) Seconds PTT Ratio Sodium 135 L (136-145) mmol/L Potassium 4.0 (3.5-5.1) mmol/L Chloride 103 (98-107) mmol/L Carbon Dioxide 26 (21-32) mmol/L Anion Gap 6.0 (3-11) BUN 18 (7-18) mg/dl Creatinine 1.37 (0.6-1.4) mg/dl Est Cr Clr Drug Dosing 84.9 ml/min Est GFR ( Amer) 66.8 Est GFR (Non-Af Amer) 57.7 BUN/Creatinine Ratio 13.0 (10-20) Glucose 241 H (70-99) mg/dl Lactate 1.3 (0.4-2.0) mmol/L Calcium 9.9 (8.5-10.1) mg/dl Total Bilirubin 0.4 (0.2-1) mg/dl AST 19 (15-37) U/L ALT 29 (12-78) U/L Alkaline Phosphatase 93 (45-117) U/L C-Reactive Protein 0.71 H (0-0.29) mg/dl Total Protein 7.9 (6.4-8.2) gm/dl Albumin 3.8 (3.4-5.0) gm/dl Globulin 4.1 H (2.5-4.0) gm/dl Albumin/Globulin Ratio 0.9 (0.9-2) Specimen Hemolysis Diagnostic Findings X-rayby my interpretation does not appear to have any evidence of osteomyelitis, fracture or dislocation Code Status & VTE Plan Code Status Full code PG Care Time/CCT Total # of Minutes Spent Total Time Spent with Patient: Total time spent is greater than 50% in coordination of care (as documented) at patient's floor/unit and/or counseling patient: Coding Level of Care Code 18382 Initial Inpt Care Lvl 3 Diagnoses Finger infection L08.9 Diabetes mellitus with hyperglycemia E11.65; Z79.4 Diabetes mellitus type: type 2 Diabetes mellitus long term care pharmacist insulin use: with long term care pharmacist use Hx of kidney transplant Z94.0 Hypertension I10 Hypertension type: essential hypertension Hyperlipidemia E78.5 Hyperlipidemia type: unspecified (1) Diabetes mellitus with hyperglycemia Diabetes mellitus type: type 2 Diabetes mellitus long term care pharmacist insulin use: with care home use Qualified Code(s): E11.65 - Type 2 diabetes mellitus with hyperglycemia; Z79.4 - [facility] (current) use of insulin (2) Hypertension Hypertension type: essential hypertension Qualified Code(s): I10 - Essential (primary) hypertension (3) Hyperlipidemia Hyperlipidemia type: unspecified Qualified Code(s): E78.5 - Hyperlipidemia, unspecified
[2020-05-30] MEDS ORDERED: DEXTROSE 50% 50 ML SYRINGE IV PRN (04:26)
[2020-05-30] MEDS ORDERED: DAPTOMYCIN CONSULT ACTIVE PRN (04:26)
[2020-05-30] MEDS ORDERED: ACETAMINOPHEN 325 MG TAB PO PRN (04:26)
[2020-05-30] MEDS ORDERED: LIDOCAINE 5% 1 PATCH TD PRN (04:26)
[2020-05-30] MEDS ORDERED: CARBOHYDRATES FOR HYPOGLYCEMIA PO PRN (04:26)
[2020-05-30] MEDS ORDERED: GLUCAGON FOR INJ 1 MG VIAL SQ PRN (04:26)
[2020-05-30] MEDS ORDERED: ONDANSETRON INJ 2 MG/ML 2 ML VIAL IV PRN (04:26)
[2020-05-30] MEDS ORDERED: GLUCOSE 40% GEL 15 GM TUBE PO PRN (04:26)
[2020-05-30] MEDS ORDERED: PIPERACILL/TAZOBAC CONSULT ACTIVE PRN (04:26)
[2020-05-30] MEDS ORDERED: GLUCOSE 10 TABS/TUBE PO PRN (04:26)
[2020-05-30] MEDS ORDERED: PIPERACILLIN/TAZOBACTAM 4.5 GM in DEXTROSE 5% 100 ML IV ONE (05:00)
[2020-05-30] MEDS ORDERED: HEPARIN SOD 5,000 UNIT/0.5 ML VIAL SQ SCH (06:00)
[2020-05-30] MEDS ORDERED: DAPTOmycin 350 MG in SYRINGE 0 ML IV SCH (06:00)
[2020-05-30 06:16] LABS: Estimated Average Glucose 249 mg/dl; Hemoglobin A1C 10.3 % (4.5-5.6)
[2020-05-30] MEDS ORDERED: GADOBUTROL 65ML VIAL IV ONE (06:36)
--- NOTE | 2020-05-30 06:47 | XRay Report ---
LEFT THIRD FINGER RADIOGRAPHS CLINICAL HISTORY: Laceration 2 weeks ago. Evaluate for osteomyelitis. COMPARISON: None FINDINGS: Alignment of the left third finger is anatomic. Soft tissue injury suggestive of laceratio n with gas overlying the dorsal aspect of the distal interphalangeal joint of the left third finger i s noted. There is no acute fracture. There is no radiographic evidence for osteomyelitis. No radiopaq ue foreign bodies noted. There is extensive vascular calcification. IMPRESSION: Left third finger wound/laceration overlying the dorsal aspect of the DIP joint with soft tissue swel ling. No radiographic evidence for osteomyelitis. No fracture. ACT 112: Negative or not required by law. Electronically signed by: Ryan Park M.D. 05/30/2020 6:46 AM
--- NOTE | 2020-05-30 08:32 | Magnetic Resonance Report ---
MRI OF THE LEFT HAND WITH AND WITHOUT CONTRAST CLINICAL HISTORY: ?acute osteomyelitis. Left third finger laceration 2 weeks ago with redness and swe lling. COMPARISON STUDY: Left third finger radiographs May 29, 2020. TECHNIQUE: Utilizing a 1.5 Jewels magnet and dedicated coil, multiplanar, multi echo imaging of the le ft hand with specific attention to the third digit was performed pre and postcontrast administration. Intravenous injection of 12.1 cc of Gadavist was uneventful. FINDINGS: Note is made of a soft tissue defect overlying the dorsal aspect of the distal interphalang eal joint of the left third digit. Extensor tendon appears intact. There is no fluid collection is antunez ggest abscess. There is mild soft tissue edema. There is mild edema on the T2-weighted sequences with in the middle and distal phalanges of the left third digit. T1 signal is not significantly diminished . There is no marrow enhancement. Alignment of the third finger is anatomic. IMPRESSION: 1. Mild marrow edema within the middle and distal phalanges of the left third finger. T1 signal not s ignificantly diminished. The findings suggest osteitis. No MR evidence for osteomyelitis. 2. Wound/laceration of the dorsal aspect of the left third finger overlying the PIP joint. Mild soft tissue edema suggests cellulitis. No abscess. ACT 112: Negative or not required by law. Electronically signed by: Ryan Park M.D. 05/30/2020 8:31 AM
[2020-05-30] MEDS: INSULIN ASPART 100 UNITS/ML 3 ML PEN SC SCH ×3 (08:43→12:46)
[2020-05-30] MEDS ORDERED: TAMSULOSIN HCL 0.4 MG CAP PO SCH (09:00)
[2020-05-30] MEDS ORDERED: PREGABALIN 150 MG CAP PO SCH (09:00)
[2020-05-30] MEDS ORDERED: ASPIRIN 81 MG ECTAB PO SCH (09:00)
[2020-05-30] MEDS ORDERED: INSULIN GLARGINE SOLOSTAR 100 UNITS/ML 3 ML PEN SQ SCH ×2 (09:00→21:00)
[2020-05-30] MEDS ORDERED: AMLODIPINE BESYLATE 5 MG TAB PO SCH (09:00)
[2020-05-30] MEDS ORDERED: METOPROLOL TARTRATE 50 MG TAB PO SCH (09:00)
[2020-05-30] MEDS ORDERED: dilTIAZem HCL 240 MG CAPCR PO SCH (09:00)
[2020-05-30] MEDS ORDERED: MYCOPHENOLATE SODIUM 180 MG TAB PO SCH (09:00)
[2020-05-30] MEDS ORDERED: PIPERACILLIN/TAZOBACTAM 3.375 GM in DEXTROSE 5% 100 ML IV SCH (10:00)
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
[2020-05-30] MEDS ORDERED: AMITRIPTYLINE HCL 25 MG TAB PO SCH (21:00)
== END 2020-05-30 13:09 | disposition left against medical advice (07) | DRG 603 ==
LOC: ED 23:41 → 3E 05-30 03:42 → SUATTDRO 05-30 04:22 → 3E 05-30 04:22

== ENCOUNTER 2021-11-19 12:36 | Inpatient (IN) ==
[2021-11-19 13:24] LABS: Hemoglobin 13.8 g/dL (14.0-18.0); Immature Granulocytes # (auto) 0.12 K/uL (0.00-0.02); Immature Granulocytes % (auto) 1.3 %; Lymphocytes # (auto) 1.28 K/uL (1.2-3.4); Lymphocytes % (auto) 13.6 %; Mean Corpuscular Hemoglobin 28.5 pg (25-34); Mean Corpuscular Hgb Conc 33.7 g/dL (32-36); Mean Corpuscular Volume 84.7 fL (80-100); Mean Platelet Volume 9.7 fL (7.4-10.4); Monocytes # (auto) 0.82 K/uL (0.11-0.59); Monocytes % (auto) 8.7 %; Neutrophils # (auto) 7.18 K/uL (1.4-6.5); Neutrophils % (auto) 76.4 %; Platelet Count 331 K/uL (130-400); RDW Coefficient of Variation 13.7 % (11.5-14.5); Red Blood Count 4.84 M/uL (4.7-6.1)
--- NOTE | 2021-11-19 13:29 | XRay Report ---
XR chest 1V portable CLINICAL HISTORY: SOB TECHNIQUE: Single frontal radiograph of the chest was obtained. Comparison: Comparison is made to chest one view 09/11/2019 FINDINGS: A right port catheter is seen. The cardiomediastinal silhouette is normal. The lungs are clear. No ev idence of pleural effusion or pneumothorax. IMPRESSION: No acute chest disease. ACT 112: Negative or not required by law. Electronically signed by: Ferny Goodwin M.D. 11/19/2021 1:28 PM
[2021-11-19 13:50] LABS: Troponin I < 0.03 ng/ml (0-0.04)
[2021-11-19 13:54] LABS: Alanine Aminotransferase 10 U/L (7-52); Albumin Level 3.8 gm/dl (3.4-5.0); Alkaline Phosphatase 67 U/L (34-104); Anion Gap 10 (3-11); Aspartate Aminotransferase 12 U/L (13-39); BUN Creatinine Ratio 15.5 (10-20); Bilirubin,Total 0.8 mg/dl (0.2-1.0); Blood Urea Nitrogen 18 mg/dl (6-23); Carbon Dioxide 23 mmol/L (21-32); Chloride 98 mmol/L (98-107); Creatinine Clr Calc Pharmacy 96.6 ml/min; Est GFR (African American) 81.1 ml/min; Globulin 3.7 gm/dl (2.5-4.0); Glucose 93 mg/dl (70-99(Fasting)); Magnesium 1.6 mg/dl (1.7-2.4); Sodium 131 mmol/L (136-145); Total Protein 7.5 gm/dl (6.0-8.3)
--- NOTE | 2021-11-19 14:17 | Emergency Department Note ---
Impression & Plan Diabetic foot infection, Renal transplant recipient, Fever, Immunocompromised ED Provider Note NAME: MIRZA GILES AGE: 55 SEX: M : 1965 ARRIVES VIA: Walk-In INFORMANT: Patient, ED PROVIDER(S): Skyler Espinal MD Chief Complaint: Upper respiratory infection, fever HPI: Patient does present from home due to concern for persistent upper respiratory infection, congestion as well as fever to 102. The patient has been trialing Motrin and Tylenol but without significant relief in symptoms other than his fever. The patient does complain of a nonproductive cough. Patient is a non-smoker. Patient is a kidney transplant recipient and has been compliant on his new logics as well as mycophenolate. Patient does follow with [facility] in [place]. Patient denies any chest pains or shortness of breath and has complained of fatigue. No history of any thyroid issues. Patient denies any nausea vomiting or diarrhea. The patient denies any known rash. The patient had been on a course of doxycycline for 2 weeks but without improvement in symptoms. Given the patient's immunocompromise status the patient has not been vaccinated for Covid or flu. ROS: See HPI for pertinent positives and negatives. A total of 10 systems were reviewed and otherwise negative. Past medical history: See below Surgical history: See below Social history: See below Physical Exam: GENERAL: Fatigued in appearance,NAD, wearing a mask, non-toxic. EYE EXAM: Normal conjunctiva. PERRL, no anisocoria and EOM's grossly intact w/o pain. OROPHARYNX: Moist mucus membranes. Grossly normal dentition. NECK: Supple, no nuchal rigidity, no adenopathy, non-tender. No signs of meningismus. LUNGS: Rhonchi present in the right chest. Normal chest wall mechanics. HEART: NSR, no MRG. ABDOMEN: Abdomen soft, non-tender, normo-active bowel sounds, no masses, no rebound or guarding. BACK: No CVA TTP. SKIN: No rashes and no bruising. UPPER EXTREMITIES: Upper extremities are grossly normal. LOWER EXTREMITIES: Grossly normal, no edema. Negative Homans' sign bilaterally. -Reevaluation shows that the patient does have significant heel ulcer to the right foot with associated eschar over the medial aspect of the foot that runs v irtually from big toe to the base of the foot. There is some erythema and warmth to the bottom of the foot, no obvious crepitus. NEURO EXAM: A&O x3, cranial nerves II-XII grossly intact, normal speech, moves all 4 extremities on command w/o issue. Differential diagnoses: Viral syndrome, otitis, pharyngitis, pneumonia, influenza, meningitis, urinary tract infection, sepsis, bacteremia, as well as other pathologies. Course: Patient was seen and evaluated the bedside. Full history physical exam was performed. EKG interpreted by me Normal sinus rhythm rate of 73, normal WI, wide QRS, normal axis, possible elevation in V3 but not in contiguous leads. No obvious reciprocal changes. Right bundle branch block noted. Imaging Studies: See Below Cardiac monitoring: An order was placed for continuous cardiac monitoring. The monitor shows a rate of 73 with sinus rhythm. MDM: Patient was seen in a triage room as there were no beds in which the patient could be seen. Blood work was obtained empirically which showed a normal white count with trace anemia at 13.8. Platelet count is unremarkable. Kidney function unremarkable with hyponatremia 131. Also mild hypomagnesemia 1.6 which is ordered for repleted. The patient was ordered IV fluids. Antibiotics, cultures, as well as urinalysis and urine culture. I did add a BK virus. Troponin negative. I did speak with the on-call hospitalist Dr. Price who did evaluate the patient. The patient does have a significant right-sided foot infection. When I had evaluated the patient was out in the waiting room and subsequently the patient has been roomed. When asked about this patient states that he did not have a rash but he had a blister when I had asked him about rashes in the waiting room. The patient was discussed with Dr. Gan with the transplant service at [facility] in [place]. She did recommend that the patient have his mycophenolate and belatacept held for the time being. The patient may be started on vancomycin and Zosyn and that if there is any concern about a change in the patient's kidney function or worsening status they may consider transfer to [facility]. She also did recommend a CMV PCR. She question about diarrhea but the patient has not had any diarrheal symptoms. Patient was admitt ed to the [facility] hospitalist service. X-ray of the foot ordered and pending at the time of admission. 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 Required: Yes Beliefs That Will Affect Care: None marital status: Current Living Situation: Spouse Feels Safe at Home: Yes Assistive Devices: Cane Allergies Allergies Allergy/AdvReac Type Severity Reaction Status Date / Time ondansetron Allergy Intermediate confusion Unverified 11/19/21 16:31 bee venom protein (honey bee) Allergy Unknown SHORTNESS Verified 11/19/21 16:31 OF BREATH Home Meds Home Medications Medication Instructions Recorded Confirmed amitriptyline 25 mg tablet 25 mg PO HS 09/11/19 11/19/21 aspirin 81 mg tablet,delayed 81 mg PO QAM 09/11/19 11/19/21 release (Aspirin Low Dose) epinephrine 0.3 mg/0.3 mL 0.3 mg SUBCUT UD PRN 09/11/19 11/19/21 injection, auto-injector (EpiPen) glucagon (human recombinant) 1 mg 1 mg SUBCUT UD PRN 09/11/19 11/19/21 solution for injection (Glucagon Emergency Kit) insulin glargine 100 unit/mL (3 40 unit SUBCUT BID 09/11/19 11/19/21 mL) subcutaneous pen (Basaglar KwikPen U-100 Insulin) insulin lispro 100 unit/mL 20 unit SUBCUT AC MDD 100 units 09/11/19 11/19/21 subcutaneous pen (Humalog KwikPen per day (U-100) Insulin) lidocaine 5 % topical patch 1 patch TOPICAL Q24H PRN 09/11/19 11/19/21 (Lidoderm) rosuvastatin 20 mg tablet (Crestor) 10 mg PO QAM 09/11/19 11/19/21 tamsulosin 0.4 mg capsule (Flomax) 0.4 mg PO HS 09/11/19 11/19/21 diltiazem HCl 240 mg 240 mg PO QAM 05/29/20 11/19/21 capsule,extended release 24 hr belatacept 250 mg intravenous 250 mg IV MONTHLY #0 05/30/20 11/19/21 solution mycophenolate sodium 180 mg 360 mg PO BID 05/30/20 11/19/21 tablet,delayed release pregabalin 150 mg capsule 150 mg PO PM 05/30/20 11/19/21 acetaminophen 325 mg tablet 650 mg PO QID PRN 11/19/21 11/19/21 (Tylenol) ibuprofen 200 mg tablet 400 mg PO Q6H PRN 11/19/21 11/19/21 Results & Data (ED) Vital Signs Vital Signs - 24 hr 11/19/21 12:39 Temperature 36.3 C L Temperature Source Temporal Artery Scan Pulse Rate 73 Respiratory Rate 20 Respiratory Effort / Characteristics Non-Labored Spontaneous Respiratory Depth Normal Respiratory Pattern Regular Blood Pressure 116/71 Blood Pressure Mean 86 Pulse Oximetry 98 Oxygen Delivery Method Room Air Sepsis Recent Fever Within 48 Hours No Sepsis New/Unexplained Change in Mental Status No Sepsis Action Taken by Nursing No Action Required Home Medications Current Medication List: was personally reviewed by me Laboratory Data Attestation: I reviewed the patient's lab results. Result diagrams: 11/19/21 13:09 11/19/21 13:09 Lab Results 11/19/21 11/19/21 11/19/21 Range/Units 13:09 13:09 13:09 WBC 9.40 (4.8-10.8) K/uL RBC 4.84 (4.7-6.1) M/uL Hgb 13.8 L (14.0-18.0) g/dL Hct 41.0 L (42-52) % MCV 84.7 (80-100) fL MCH 28.5 (25-34) pg MCHC 33.7 (32-36) g/dL RDW Std Deviation 43.0 (36.4-46.3) fL RDW Coeff of Dandre 13.7 (11.5-14.5) % Plt Count 331 (130-400) K/uL MPV 9.7 (7.4-10.4) fL Immature Gran % (Auto) 1.3 % Neut % (Auto) 76.4 % Lymph % (Auto) 13.6 % Jun[place] % (Auto) 8.7 % Eos % (Auto) 0.0 % Baso % (Auto) 0.0 % Neut # (Auto) 7.18 H (1.4-6.5) K/uL Lymph # (Auto) 1.28 (1.2-3.4) K/uL Juncos # (Auto) 0.82 H (0.11-0.59) K/uL Eos # (Auto) 0.00 (0-0.5) K/uL Baso # (Auto) 0.00 (0-0.2) K/uL Immature Gran # (Auto) 0.12 H (0.00-0.02) K/uL PT Cancelled INR Cancelled APTT Cancelled PTT Ratio Cancelled Sodium 131 L (136-145) mmol/L Potassium 4.0 (3.5-5.1) mmol/L Chloride 98 (98-107) mmol/L Carbon Dioxide 23 (21-32) mmol/L Anion Gap 10 (3-11) BUN 18 (6-23) mg/dl Creatinine 1.16 (0.6-1.4) mg/dl Est Cr Clr Drug Dosing 96.6 ml/min Est GFR ( Amer) 81.1 ml/min Est GFR (Non-Af Amer) 70.0 ml/min BUN/Creatinine Ratio 15.5 (10-20) Glucose 93 (70-99(Fasting)) mg/dl Calcium 10.0 (8.5-10.1) mg/dl Magnesium 1.6 L (1.7-2.4) mg/dl Total Bilirubin 0.8 (0.2-1.0) mg/dl AST 12 L (13-39) U/L ALT 10 (7-52) U/L Alkaline Phosphatase 67 (34-104) U/L Troponin I < 0.03 (0-0.04) ng/ml Total Protein 7.5 (6.0-8.3) gm/dl Albumin 3.8 (3.4-5.0) gm/dl Globulin 3.7 (2.5-4.0) gm/dl Albumin/Globulin Ratio 1.0 (0.9-2) Procalcitonin (0-0.5) ng/ml 11/19/21 11/19/21 Range/Units 16:12 16:12 WBC (4.8-10.8) K/uL RBC (4.7-6.1) M/uL Hgb (14.0-18.0) g/dL Hct (42-52) % MCV (80-100) fL MCH (25-34) pg MCHC (32-36) g/dL RDW Std Deviation (36.4-46.3) fL RDW Coeff of Dandre (11.5-14.5) % Plt Count (130-400) K/uL MPV (7.4-10.4) fL Immature Gran % (Auto) % Neut % (Auto) % Lymph % (Auto) % Juncos % (Auto) % Eos % (Auto) % Baso % (Auto) % Neut # (Auto) (1.4-6.5) K/uL Lymph # (Auto) (1.2-3.4) K/uL Juncos # (Auto) (0.11-0.59) K/uL Eos # (Auto) (0-0.5) K/uL Baso # (Auto) (0-0.2) K/uL Immature Gran # (Auto) (0.00-0.02) K/uL PT 12.1 H INR 1.2 H APTT 31.2 H PTT Ratio 1.2 Sodium (136-145) mmol/L Potassium (3.5-5.1) mmol/L Chloride (98-107) mmol/L Carbon Dioxide (21-32) mmol/L Anion Gap (3-11) BUN (6-23) mg/dl Creatinine (0.6-1.4) mg/dl Est Cr Clr Drug Dosing ml/min Est GFR ( Amer) ml/min Est GFR (Non-Af Amer) ml/min BUN/Creatinine Ratio (10-20) Glucose (70-99(Fasting)) mg/dl Calcium (8.5-10.1) mg/dl Magnesium (1.7-2.4) mg/dl Total Bilirubin (0.2-1.0) mg/dl AST (13-39) U/L ALT (7-52) U/L Alkaline Phosphatase (34-104) U/L Troponin I (0-0.04) ng/ml Total Protein (6.0-8.3) gm/dl Albumin (3.4-5.0) gm/dl Globulin (2.5-4.0) gm/dl Albumin/Globulin Ratio (0.9-2) Procalcitonin 0.45 (0-0.5) ng/ml Administered Medications Vancomycin HCl 2,750 mg/ (Sodium Chloride) 555 mls @ 200 mls/hr IV NOW ONE Stop: 11/19/21 19:44 Last Admin: 11/19/21 19:24 Dose: 200 mls/hr Documented by: [id number] Discontinued Medications Sodium Chloride (Nss 1000ml) 1,000 mls @ 999 mls/hr IV .Q1H1M ONE Stop: 11/19/21 15:37 Last Infusion: 11/19/21 19:24 Dose: 0 mls/hr Documented by: [id number] Admin: 11/19/21 17:57 Dose: 999 mls/hr Documented by: [id number] Cefepime HCl (Maxipime) 2,000 mg in 20 mls @ 5 mls/min IV NOW STA; Protocol Stop: 11/19/21 15:02 Last Admin: 11/19/21 17:57 Dose: 5 mls/min Documented by: [id number] Piperacillin Sod/Tazobactam Sod (Zosyn) 4.5 gm in 120 mls @ 240 mls/hr IV NOW ONE Stop: 11/19/21 17:27 Last Infusion: 11/19/21 19:24 Dose: 0 mls/hr Documented by: [id number] Admin: 11/19/21 17:56 Dose: 240 mls/hr Documented by: [id number] Magnesium Oxide (Magnesium Oxide 400 Mg Tab) 800 mg PO NOW STA Stop: 11/19/21 14:40 Last Admin: 11/19/21 17:03 Dose: 800 mg Documented by: [id number] Imaging Data Radiologist's Impression: Chest X-Ray 11/19/21 12:45 XR chest 1V portable CLINICAL HISTORY: SOB TECHNIQUE: Single frontal radiograph of the chest was obtained. Comparison: Comparison is made to chest one view 09/11/2019 FINDINGS: A right port catheter is seen. The cardiomediastinal silhouette is normal. The lungs are clear. No evidence of pleural effusion or pneumothorax. IMPRESSION: No acute chest disease. ACT 112: Negative or not required by law. Electronically signed by: Ferny Goodwin M.D. 11/19/2021 1:28 PM Discharge Plan Visit Data Chief Complaint: Fever Stated Complaint: COUGH, COLD, FEVER PAST FEW WEEKS ED Provider: Skyler Espinal Discharge Problem: Diabetic foot infection, Renal transplant recipient, Fever, Immunocompromised Patient Disposition: Admitted As Inpatient Discharge Instructions Interventions: ED Discharge Assessment Last Done: 11/19/21 18:44
[2021-11-19] MEDS ORDERED: SODIUM CHLORIDE 0.9% 1000ML 1,000 ML IV ONE (14:37)
[2021-11-19] MEDS ORDERED: MAGNESIUM OXIDE 400 MG TAB PO STA (14:39)
--- NOTE | 2021-11-19 14:40 | Electrocardiogram Report ---
Test Reason : Blood Pressure : / mmHG Vent. Rate : 073 BPM Atrial Rate : 073 BPM P-R Int : 174 ms QRS Dur : 146 ms QT Int : 424 ms P-R-T Axes : 040 -71 042 degrees QTc Int : 467 ms Normal sinus rhythm Right bundle branch block Left anterior fascicular block Abnormal ECG When compared with ECG of 11-SEP-2019 12:59, Vent. rate has decreased BY 68 BPM Confirmed by Corby Crouch ([id number]) on 11/19/2021 2:40:42 PM Referred By: Confirmed By:Corby Crouch
[2021-11-19] MEDS ORDERED: CEFEPIME 2,000 MG/20 ML VIAL IV STA (14:59)
[2021-11-19 16:36] LABS: INR 1.2 (0.9-1.1); Partial Thromboplastin Ratio 1.2; Partial Thromboplastin Time 31.2 Seconds (21.0-31.0); Prothrombin Time 12.1 Seconds (9.0-12.0)
--- NOTE | 2021-11-19 16:55 | Communication Note ---
Date of Service: November 19, 2021 Consulted by ER for admission. Case reviewed. Patient evaluated at bedside. He has a right diabetic foot infection with extensive areas of necrosis and surrounding erythema. I believe that is the source of his fever. He will need IV antibiotics (zosyn, vancomycin) and orthopedic consultation for possible debridement. Patient has a history of kidney transplant and is reportedly due for his anti rejection infusion tomorrow. Discussed with ER physician to contact [facility] transplant team to discuss whether patient can be safely managed here vs transfer to [facility]. Will await to hear back before proceeding with admission.
[2021-11-19] MEDS ORDERED: VANCOMYCIN HCL 2,750 MG in SODIUM CHLORIDE 0.9% 500 ML IV ONE (16:58)
[2021-11-19] MEDS ORDERED: PIPERACILL/TAZOBAC CONSULT ACTIVE PRN ×2 (16:58→19:03)
[2021-11-19] MEDS ORDERED: PIPERACILLIN/TAZOBACTAM 4.5 GM/120 ML BAG IV ONE (16:58)
[2021-11-19] MEDS ORDERED: VANCOMYCIN CONSULT ACTIVE PRN ×2 (16:58→19:03)
--- NOTE | 2021-11-19 17:31 | History & Physical Report ---
Date of Service November 19, 2021 Assessment & Plan Plan: Diabetic foot infection -Sepsis not present -will place on vancomycin, zosyn. -Foot X ray will be ordered by ER physician -will consult Ortho to evaluate, patient likely needs debridement Kidney Transplant Immunosuppressed state -ER provider discussed with [facility] Transplant surgeon, patient is Ok to receive vancomycin/zosyn, it is recommended we hold his Cellcept and Belatacept infusion currently due to active infection -Renal function appears stable -Due to his transplant status, I will consult Nephrology to follow along while he is here HTN -continue diltiazem with hold parameters Insulin dependent diabetes -home: lantus 40unitsSQ BID, Lispro 20 unit TID-AC -will reduce lantus to 30 units SQ BID, And correctional scale ordered. Consult glycemic pharmacist -continue lyrica HLD -statin DVT PPX -hold AC until evaluation by orthopedic surgery. If no plans for surgery, plan to initiate lovenox SQ Code status -Full Disposition -From home, will admit to med/surg. Discharge plan TBD Admission and Anticipated Discharge Date Admission Date: 11/19/2021 History of Present Illness Chief Complaint: fever Primary Care Provider: Kelvin Schulte Mr Ramesh Tamez is a 55 year old man with history of renal transplant currently on Cellcept and monthly belatacept infusions, history of insulin dependent diabetes with neuropathy, hypertension, and hyperlipidemia presents to [facility] ER for ongoing fevers. Mr Tamez reports that he has been suffering from a cough x 3 weeks and associated body aches, fatigue, chills. His son had the same symptoms and went to Urgent Care for covid screen. Patient also went to Urgent Care and was prescribed a course of doxycycline for his URI. He reports that while being on the doxycycline his fever subsided somewhat. He finished his doxycycline course yesterday and since then, his fever is elevated again. He denies having recently been tested for Covid. He has not received his flu or covid vaccinations due to being on the belatacept infusions. Upon further evaluation, he admits to having a foot wound (bilateral heals but right >left) at least for the past 1 week. He reports his wound was from "filing his foot" and due to lack of sensation he went too far and caused injury. He has been administering local wound care to the area but it appears to be getting worse. He noted that the redness is much worse. Allergies Allergy/AdvReac Type Severity Reaction Status Date / Time ondansetron Allergy Intermediate confusion Unverified 11/19/21 16:31 bee venom protein (honey bee) Allergy Unknown SHORTNESS Verified 11/19/21 16:31 OF BREATH Home Medications Medication Instructions Recorded Confirmed Type amitriptyline 25 mg tablet 25 mg PO HS 09/11/19 11/19/21 History aspirin 81 mg tablet,delayed 81 mg PO QAM 09/11/19 11/19/21 History release (Aspirin Low Dose) epinephrine 0.3 mg/0.3 mL 0.3 mg SUBCUT UD PRN 09/11/19 11/19/21 History injection, auto-injector (EpiPen) glucagon (human recombinant) 1 mg 1 mg SUBCUT UD PRN 09/11/19 11/19/21 History solution for injection (Glucagon Emergency Kit) insulin glargine 100 unit/mL (3 40 unit SUBCUT BID 09/11/19 11/19/21 History mL) subcutaneous pen (Basaglar KwikPen U-100 Insulin) insulin lispro 100 unit/mL 20 unit SUBCUT AC MDD 100 units 09/11/19 11/19/21 History subcutaneous pen (Humalog KwikPen per day (U-100) Insulin) lidocaine 5 % topical patch 1 patch TOPICAL Q24H PRN 09/11/19 11/19/21 History (Lidoderm) rosuvastatin 20 mg tablet (Crestor) 10 mg PO QAM 09/11/19 11/19/21 History tamsulosin 0.4 mg capsule (Flomax) 0.4 mg PO HS 09/11/19 11/19/21 History diltiazem HCl 240 mg 240 mg PO QAM 05/29/20 11/19/21 History capsule,extended release 24 hr belatacept 250 mg intravenous 250 mg IV MONTHLY #0 05/30/20 11/19/21 History solution mycophenolate sodium 180 mg 360 mg PO BID 05/30/20 11/19/21 History tablet,delayed release pregabalin 150 mg capsule 150 mg PO PM 05/30/20 11/19/21 History acetaminophen 325 mg tablet 650 mg PO QID PRN 11/19/21 11/19/21 History (Tylenol) ibuprofen 200 mg tablet 400 mg PO Q6H PRN 11/19/21 11/19/21 History Past Med/Surg History Medical History Diabetes Gastroparesis History of peritoneal dialysis Hypertension Surgical History Hx of kidney transplant September 2017 [facility] Albarran Family History Other Family history non-contributory Social History Smoking Status: Never smoker Hx Alcohol Use: Yes Alcohol type: beer Hx Substance Use: No Preferred Language: Arabic 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 Remaining ROS otherwise negative Physical Exam Physical Exam: Pleasant, no acute distress, non toxic appearing ENMT: normocephalic, atraumatic Neck: Neck thick, supple Respiratory: Breathing comfortably on room air, no wheezing/rhonchi/rales Cardiovascular: regular rate and rhythm, no murmurs/rubs/gallops Gastrointestinal (Abdomen): soft, non tender, non distended Musculoskeletal: no edema, no cyanosis or clubbing. See below for skin exam Skin: Right foot with extensive eschar on medial aspect wrapping around to the heal. Entire foot is erythematous. Right heal also with eschar, possibly underlying abscess Neurologic: awake, alert, spontaneously moving extremities. Chronic peripheral neuropathy Psychiatric: affect normal, speech linear, non pressured Results & Data Results & Data (MN) Vital Signs (Past 12 Hours) Vital Signs Temp Pulse Resp BP Pulse Ox 11/19/21 12:39 36.3 C L 73 20 116/71 98 Laboratory Results Short CBC 11/19/21 Range/Units 13:09 WBC 9.40 (4.8-10.8) K/uL Hgb 13.8 L (14.0-18.0) g/dL Hct 41.0 L (42-52) % Plt Count 331 (130-400) K/uL BMP 11/19/21 13:09 Sodium 131 L Potassium 4.0 Chloride 98 Carbon Dioxide 23 BUN 18 Creatinine 1.16 Glucose 93 Calcium 10.0 Cardiac Enzymes 11/19/21 Range/Units 13:09 Troponin I < 0.03 (0-0.04) ng/ml Liver Function 11/19/21 Range/Units 13:09 Total Bilirubin 0.8 (0.2-1.0) mg/dl AST 12 L (13-39) U/L ALT 10 (7-52) U/L Alkaline Phosphatase 67 (34-104) U/L Albumin 3.8 (3.4-5.0) gm/dl Medications Administered Medication Instructions Recorded Confirmed Type amitriptyline 25 mg tablet 25 mg PO HS 09/11/19 11/19/21 History aspirin 81 mg tablet,delayed 81 mg PO QAM 09/11/19 11/19/21 History release (Aspirin Low Dose) epinephrine 0.3 mg/0.3 mL 0.3 mg SUBCUT UD PRN 09/11/19 11/19/21 History injection, auto-injector (EpiPen) glucagon (human recombinant) 1 mg 1 mg SUBCUT UD PRN 09/11/19 11/19/21 History solution for injection (Glucagon Emergency Kit) insulin glargine 100 unit/mL (3 40 unit SUBCUT BID 09/11/19 11/19/21 History mL) subcutaneous pen (Basaglar KwikPen U-100 Insulin) insulin lispro 100 unit/mL 20 unit SUBCUT AC MDD 100 units 09/11/19 11/19/21 History subcutaneous pen (Humalog KwikPen per day (U-100) Insulin) lidocaine 5 % topical patch 1 patch TOPICAL Q24H PRN 09/11/19 11/19/21 History (Lidoderm) rosuvastatin 20 mg tablet (Crestor) 10 mg PO QAM 09/11/19 11/19/21 History tamsulosin 0.4 mg capsule (Flomax) 0.4 mg PO HS 09/11/19 11/19/21 History diltiazem HCl 240 mg 240 mg PO QAM 05/29/20 11/19/21 History capsule,extended release 24 hr belatacept 250 mg intravenous 250 mg IV MONTHLY #0 05/30/20 11/19/21 History solution mycophenolate sodium 180 mg 360 mg PO BID 05/30/20 11/19/21 History tablet,delayed release pregabalin 150 mg capsule 150 mg PO PM 05/30/20 11/19/21 History acetaminophen 325 mg tablet 650 mg PO QID PRN 11/19/21 11/19/21 History (Tylenol) ibuprofen 200 mg tablet 400 mg PO Q6H PRN 11/19/21 11/19/21 History Code Status & VTE Plan Code Status Full VTE Prophylaxis Plan VTE Prophylaxis will be ordered: Yes
[2021-11-19] MEDS ORDERED: GLUCOSE 40% GEL 15 GM TUBE PO PRN (19:03)
[2021-11-19] MEDS ORDERED: GLUCAGON FOR INJ 1 MG VIAL SQ PRN (19:03)
[2021-11-19] MEDS ORDERED: GLUCOSE 10 TABS/TUBE PO PRN (19:03)
[2021-11-19] MEDS ORDERED: CARBOHYDRATES FOR HYPOGLYCEMIA PO PRN (19:03)
[2021-11-19] MEDS ORDERED: PHARMACY GLYCEMIC MGMT CONSULT PRN (19:03)
[2021-11-19] MEDS ORDERED: POLYETHYLENE (MIRALAX) 17 GM PACK PO PRN (19:03)
[2021-11-19] MEDS ORDERED: ACETAMINOPHEN 325 MG TAB PO PRN (19:03)
[2021-11-19] MEDS ORDERED: ONDANSETRON INJ 2 MG/ML 2 ML VIAL IV PRN (19:03)
[2021-11-19] MEDS ORDERED: DEXTROSE 50% 50 ML SYRINGE IV PRN (19:03)
--- NOTE | 2021-11-19 20:07 | XRay Report ---
RIGHT FOOT 3 VIEWS CLINICAL HISTORY: Right foot infection. FINDINGS: 3 views the right foot are obtained. No prior studies are available for comparison at the t estelle of dictation. The skeletal structures are osteopenic. No acute fracture is seen. There is no dest ructive change or periostitis. Moderate osteoarthritic change is seen at the first metatarsophalangea l joint. Mild degenerative changes noted in the midfoot. Hammertoe deformities are suggested. An oste ochondroma is suggested arising from the distal shaft of the first metatarsal. Soft tissue edema is p resent throughout the foot. There is advanced atherosclerotic calcification of the regional arteries. No soft tissue gas is identified. IMPRESSION: 1. Soft tissue swelling with no acute bony abnormality identified. 2. Osteopenia and degenerative change as above. Electronically signed by: Mendoza Sandoval M.D. 11/19/2021 8:06 PM
[2021-11-19] MEDS: INSULIN ASPART PER UNIT SC SCH (23:03)
[2021-11-19] MEDS: INSULIN GLARGINE SOLOSTAR 100 UNITS/ML 3 ML PEN SC SCH (23:04)
[2021-11-19] MEDS: TAMSULOSIN HCL 0.4 MG CAP PO SCH (23:05)
[2021-11-19] MEDS: PREGABALIN 150 MG CAP PO SCH (23:05)
[2021-11-19] MEDS: AMITRIPTYLINE HCL 25 MG TAB PO SCH (23:05)
[2021-11-19] MEDS: PIPERACILLIN/TAZOBACTAM 3.375 GM in DEXTROSE 5% 100 ML IV SCH (23:23)
[2021-11-19 23:31] LABS: Appearance Urine Clear (Clear); Bilirubin Urine Negative (Negative); Blood Urine Negative (Negative); Color Urine Yellow; Glucose Urine UA Trace (Negative); Ketones Urine Trace (Negative); Leukocyte Esterase Urine Negative (Negative); Nitrite Urine Negative (Negative); Protein Urine Negative (Negative); Specific Gravity Urine 1.008 (1.000-1.030); Urobilinogen Urine Negative (Negative)
[2021-11-20] MEDS ORDERED: VANCOMYCIN HCL 1,000 MG in SODIUM CHLORIDE 0.9% 250 ML IV SCH (06:00)
[2021-11-20] MEDS: PIPERACILLIN/TAZOBACTAM 3.375 GM in DEXTROSE 5% 100 ML IV SCH ×3 (06:36→22:01)
[2021-11-20] MEDS: dilTIAZem HCL 240 MG CAPCR PO SCH (08:04)
[2021-11-20] MEDS: ROSUVASTATIN CALCIUM 10 MG TAB PO SCH (08:04)
[2021-11-20] MEDS: ASPIRIN 81 MG ECTAB PO SCH (08:04)
[2021-11-20 08:56] LABS: Estimated Average Glucose 229 mg/dl; Hemoglobin A1C 9.6 % (4.5-5.6)
[2021-11-20 09:14] LABS: Eosinophils # (auto) 0.02 K/uL (0-0.5); Eosinophils % (auto) 0.2 %; Hematocrit (blood only) 36.4 % (42-52); Hemoglobin 12.3 g/dL (14.0-18.0); Immature Granulocytes # (auto) 0.07 K/uL (0.00-0.02); Immature Granulocytes % (auto) 0.8 %; Lymphocytes # (auto) 1.22 K/uL (1.2-3.4); Lymphocytes % (auto) 14.7 %; Mean Corpuscular Hemoglobin 28.8 pg (25-34); Mean Corpuscular Hgb Conc 33.8 g/dL (32-36); Mean Corpuscular Volume 85.2 fL (80-100); Mean Platelet Volume 9.8 fL (7.4-10.4); Monocytes # (auto) 1.05 K/uL (0.11-0.59); Monocytes % (auto) 12.7 %; Neutrophils # (auto) 5.93 K/uL (1.4-6.5); Neutrophils % (auto) 71.6 %; Platelet Count 331 K/uL (130-400); Red Blood Count 4.27 M/uL (4.7-6.1); White Blood Count 8.29 K/uL (4.8-10.8)
[2021-11-20] MEDS: INSULIN ASPART PER UNIT SC SCH ×4 (09:26→21:06)
[2021-11-20] MEDS: INSULIN GLARGINE SOLOSTAR 100 UNITS/ML 3 ML PEN SC SCH ×2 (09:27→21:05)
[2021-11-20 09:38] LABS: BUN Creatinine Ratio 13.6 (10-20); Calcium 9.1 mg/dl (8.5-10.1); Creatinine Clr Calc Pharmacy 108.8 ml/min; Est GFR (African American) 93.7 ml/min; Est GFR (Non-African American) 80.8 ml/min; Potassium 4.2 mmol/L (3.5-5.1)
--- NOTE | 2021-11-20 10:27 | Pharmacy Report ---
Pharmacy Vanc AUC Short Note - Date of Service November 20, 2021 - Assessment & Plan Assessment 55 year old M receiving vancomycin/Zosyn for treatment of diabetic foot infection. Pertinent microbiologic data includes: N/A. Day # 1 of antimicrobial therapy. Plan Vancomycin * AUC/IVETTE is the preferred PK/PD target for vancomycin * AUC guided dosing is effective and associated with decreased risk of nephrotoxicity compared to traditional trough targets * vancomycin 1250 mg IV q12 is predicted to achieve target AUC/IVETTE of 400-600 mg/L.hr and may be associated with a 13 % risk of nephrotoxicity * Trough ordered for: 11/22/21 Pharmacy will continue to follow and will adjust dose/frequency as necessary. Thank you.
--- NOTE | 2021-11-20 11:54 | Orthopedic Consultation ---
Date of Consultation November 20, 2021 Assessment & Plan (1) Ulcer of right heel and midfoot, limited to breakdown of skin: An order was placed for Waffle boots for bilateral feet. The right foot is significantly worse than the left. The left has a small cracked area at the posterior aspect of the heel that would benefit from pressure being off of it. Nonweightbearing on the right lower extremity at all times. MRI of the right ankle/hindfoot to rule out calcaneal osteomyelitis rule out abscess of the hindfoot. I will have Dr. Mccollum review the MRI once it is completed. I discussed with the patient that wound nursing will probably be sufficient for treatment of the medial foot wound. The MRI will determine wound treatment for the heel ulceration. Thank for the consultation. We will follow up with the patient once the MRI is completed. (2) Ulcer of right foot due to type 2 diabetes mellitus: History of Present Illness Reason for Consultation: Right foot ulceration Attending Physician: Sam Price MD History of Present Illness This is a patient who is an insulin-dependent diabetic who also has undergone a kidney transplant in 2017. He states he has had a history of lower extremity wounds that have come and gone. The current right medial foot wound has been improving and worsening for some time but will heal or improve with topical treatments. Approximately 1 week ago, he noticed the wound worsening. He states that the area started to get infected. About the same time, he started having a wound on his heel. He came to the emergency room for upper respiratory symptoms and also had his foot evaluated. He was admitted by medicine and we were consulted for evaluation of the foot wounds. Allergies Allergy/AdvReac Type Severity Reaction Status Date / Time ondansetron Allergy Intermediate confusion Unverified 11/19/21 16:31 bee venom protein (honey bee) Allergy Unknown SHORTNESS Verified 11/19/21 16:31 OF BREATH Home Medications Medication Instructions Recorded Confirmed Type amitriptyline 25 mg tablet 25 mg PO HS 09/11/19 11/19/21 History aspirin 81 mg tablet,delayed 81 mg PO QAM 09/11/19 11/19/21 History release (Aspirin Low Dose) epinephrine 0.3 mg/0.3 mL 0.3 mg SUBCUT UD PRN 09/11/19 11/19/21 History injection, auto-injector (EpiPen) glucagon (human recombinant) 1 mg 1 mg SUBCUT UD PRN 09/11/19 11/19/21 History solution for injection (Glucagon Emergency Kit) insulin glargine 100 unit/mL (3 40 unit SUBCUT BID 09/11/19 11/19/21 History mL) subcutaneous pen (Basaglar KwikPen U-100 Insulin) insulin lispro 100 unit/mL 20 unit SUBCUT AC MDD 100 units 09/11/19 11/19/21 History subcutaneous pen (Humalog KwikPen per day (U-100) Insulin) lidocaine 5 % topical patch 1 patch TOPICAL Q24H PRN 09/11/19 11/19/21 History (Lidoderm) rosuvastatin 20 mg tablet (Crestor) 10 mg PO QAM 09/11/19 11/19/21 History tamsulosin 0.4 mg capsule (Flomax) 0.4 mg PO HS 09/11/19 11/19/21 History diltiazem HCl 240 mg 240 mg PO QAM 05/29/20 11/19/21 History capsule,extended release 24 hr belatacept 250 mg intravenous 250 mg IV MONTHLY #0 05/30/20 11/19/21 History solution mycophenolate sodium 180 mg 360 mg PO BID 05/30/20 11/19/21 History tablet,delayed release pregabalin 150 mg capsule 150 mg PO PM 05/30/20 11/19/21 History acetaminophen 325 mg tablet 650 mg PO QID PRN 11/19/21 11/19/21 History (Tylenol) ibuprofen 200 mg tablet 400 mg PO Q6H PRN 11/19/21 11/19/21 History Patient History Medical History Diabetes Gastroparesis History of peritoneal dialysis Hypertension Surgical History Hx of kidney transplant September 2017 Prema Albarran Family History Other Family history non-contributory Social History Smoking Status: Never smoker Hx Alcohol Use: No Hx Substance Use: No Preferred Language: Beninese Communication Ability: Effective Pitch Flaker Required: Yes Beliefs That Will Affect Care: None marital status: Current Living Situation: Spouse Feels Safe at Home: Yes Assistive Devices: Cane Physical Exam Constitutional: WD/WN, vitals as above no acute distress ENMT: external ear and nose normal, oropharynx normal Neck: trachea midline Musculoskeletal: Right foot: There is a superficial ulceration that runs from the area of the medial first MTP head along the entire midfoot to the hindfoot inferior to the medial malleolus. There is minimal erythema; the area appears to be improving. There is no drainage. The wound is shallow with a light eschar over the area. The posterior aspect of the heel has a large ulceration with sloughing skin at the wound edges. There is minimal serosanguineous drainage in the area. There is not appear to be any exposed fat pad. Psychiatric: A+Ox3, euthymic affect Speech: normal rate/rhythm/volume of speech Results & Data ([facility]) Vital Signs (Past 12 Hours) Vital Signs Temp Pulse Resp BP Pulse Ox 11/20/21 07:38 37.4 C 79 16 154/74 H 96 Diagnostic Findings 3 views of the right foot reviewed. There is first MTP arthritic changes with spurring at the medial aspect of the first metatarsal head. No bony erosion noted. There is not appear to be any bony erosion noted at the calcaneus. No acute fractures.
--- NOTE | 2021-11-20 14:04 | Pharmacy Report ---
Pharmacy Glycemic Short Note 2 - Date of Service November 20, 2021 - Glycemic Short BSG Results (Last 24 hours): 11/20/21 11/20/21 08:15 08:59 Glucose 238 H POC Glucose 191 H OUTPATIENT ANTIDIABETIC REGIMEN: * Lantus 40 units BID * Humalog 20 units AC ASSESSMENT: * Mr Tamez is a 55 y/o M with a PMH of T2DM who presents with a diabetic foot infection. * Patient's BSGs yesterday were 93-113 mg/dL- 260 mg/dL at bedtime. * Patient received Lantus 30 units last night plus 5 of Novolog. * Will continue with Lantus 30 units SQ BID (20% reduction from home dose) with a 20 unit dose available if BSG below 160 mg/dL. * Novolog weight-based stress of 2. PLAN FOR INPATIENT GLYCEMIC CONTROL: * Hold outpatient oral diabetes medications * Basal insulin * Lantus 30 units SQ BID (20 units if BSG < 160 mg/dL) * Bolus insulin * NovoLog per scale ACHS or Q6hrs while NPO * Goal Range: Low 110 mg/dL - High 140 mg/dL * Correction Factor: 25 mg/dL/unit * Nutritional / Prandial insulin per carb ratio of 1 unit per 6 grams CHO consumed PLAN FOR DISCHARGE: * Patient's HbA1C has improved slightly from 10.3% (05/2020) to 9.6% (11/19/21) * Recommend continuing to check blood sugars several times per day and following up with provider to optimize glycemic control.
--- NOTE | 2021-11-20 14:51 | Magnetic Resonance Report ---
MR ankle RT wo con CLINICAL HISTORY: 55 years-old Male with Rule out osteomyelitis calcaneus, rule out abscess. Chronic pain of the hindfoot with possible osteoarthritis COMPARISON: Right foot radiographs 11/19/2021 TECHNIQUE: Multiplanar, multi sequence MRI of the right ankle was performed without contrast. FINDINGS: Motion degraded exam. LATERAL LIGAMENT COMPLEX: Chronic sprain of the anterior talofibular and calcaneofibular ligaments. T he posterior talofibular ligament appears intact. SYNDESMOTIC LIGAMENTS: The anterior-inferior tibiofibular ligament, interosseous membrane and posteri or-inferior tibiofibular ligaments are intact. DELTOID LIGAMENT COMPLEX: The superficial and deep components of the deltoid ligament are intact. ANTERIOR TENDONS: The tibialis anterior, extensor hallucis longus and extensor digitorum longus tendo ns are normal in position, morphology and signal. LATERAL TENDONS: The peroneus longus appears intact. There is a suggested high-grade split tear of th e inframalleolar segment of the peroneus brevis which is suboptimally evaluated secondary to motion a rtifact. MEDIAL TENDONS: The posterior tibialis, flexor digitorum longus and flexor hallucis longus tendons ar e intact. PLANTAR FASCIA: There is mild thickening of the medial cord of the plantar fascia suggestive of chron ic plantar fasciitis. No evidence of plantar fascial nodules. ACHILLES TENDON: The Achilles tendon is normal in position, morphology and signal. No associated burs itis. SINUS TARSI: There is normal fat signal within the sinus tarsi. The interosseous and cervical ligamen ts are normal. The navicular-calcaneal (spring) ligament iswithout acute abnormality. TARSAL TUNNEL: There are no obstructing lesions within the tarsal tunnel. BONE MARROW: Bone marrow is normal in signal without evidence of fracture, marrow contusion or marrow occupying lesion. There is mild osteoarthritis of the tibiotalar joint, hindfoot and midfoot. There is moderate subcuta neous, deep tissue and intramuscular edema of the foot and ankle. No drainable fluid collection. IMPRESSION: 1. Motion degraded exam. No evidence of acute osteomyelitis. 2. Muscle atrophy with intramuscular edema suggestive of chronic denervation. 3. Subcutaneous edema suggests cellulitis, lymphedema or venous stasis. No abscess. ACT 112: Negative or not required by law. The above report was generated using voice recognition software. It may contain grammatical, syntax o r spelling errors. Electronically signed by: Martín Ramos M.D. 11/20/2021 2:50 PM
[2021-11-20] MEDS: VANCOMYCIN HCL 1,250 MG in SODIUM CHLORIDE 0.9% 250 ML IV SCH (16:09)
--- NOTE | 2021-11-20 18:17 | Hospitalist Progress Note ---
Date of Service November 20, 2021 Assessment & Plan Plan: Diabetic foot infection -Sepsis not present -continue Vancomycin, zosyn. Will consult ID for antibiotic recommendations for discharge. -Right heel MRI negative for abscess, no underlying osteomyelitis -appreciate orthopedic surgery input Kidney Transplant Immunosuppressed state -ER provider discussed with [facility] Transplant surgeon, patient is Ok to receive vancomycin/zosyn, it is recommended we hold his Cellcept and Belatacept infusion currently due to active infection -Renal function remains stable HTN -continue diltiazem with hold parameters Insulin dependent diabetes -home: lantus 40unitsSQ BID, Lispro 20 unit TID-AC -continue lyrica -continue basal, bolus regimen HLD -statin DVT PPX -start SQ lovenox Code status -Full Disposition -From home Admission and Anticipated Discharge Date Admission Date: November 19, 2021 Subjective Feels well. Right foot redness is much improved Physical Exam Physical Exam: pleasant, no acute distress Respiratory: breathing comfortably on RA, no wheezing/rhonchi/rales Cardiovascular: regular rate and rhythm, no murmurs/rubs/gallops Gastrointestinal (Abdomen): soft, non tender Musculoskeletal: no edema, no cyanosis. For skin exam-- see below Skin: Erythema is much improved, bilateral heal eschar. right medial wound Neurologic: awake, alert Results & Data Results & Data ([facility]) Vital Signs (Past 12 Hours) Vital Signs Temp Pulse Resp BP Pulse Ox 11/20/21 17:27 37.6 C H 152/71 H 11/20/21 15:31 38.7 C H 96 H 16 199/81 H 96 11/20/21 07:38 37.4 C 79 16 154/74 H 96 Laboratory Results Short CBC 11/20/21 Range/Units 08:59 WBC 8.29 (4.8-10.8) K/uL Hgb 12.3 L (14.0-18.0) g/dL Hct 36.4 L (42-52) % Plt Count 331 (130-400) K/uL BMP 11/20/21 08:59 Sodium 131 L Potassium 4.2 Chloride 101 Carbon Dioxide 23 BUN 14 Creatinine 1.03 Glucose 238 H Calcium 9.1 Urine 11/19/21 Range/Units 23:15 Urine Color Yellow Urine Appearance Clear (Clear) Urine pH 6.0 (4.5-7.5) Ur Specific [place] 1.008 (1.000-1.030) Urine Protein Negative (Negative) Urine Glucose (UA) Trace H (Negative) Medications Administered Current Inpatient Medications Acetaminophen (Acetaminophen 325 Mg Tab) 650 mg PO QID PRN PRN Reason: Fever Stop: 12/19/21 19:02 Last Admin: 11/20/21 17:24 Dose: 650 mg Documented by: Amitriptyline HCl (Amitriptyline Hcl 25 Mg Tab) 25 mg PO HS [facility] Stop: 12/19/21 20:59 Last Admin: 11/19/21 23:05 Dose: 25 mg Documented by: Aspirin (Aspirin 81 Mg Ectab) 81 mg PO QAM [facility] Stop: 12/20/21 08:59 Last Admin: 11/20/21 08:04 Dose: 81 mg Documented by: Dextrose (Dextrose 50% 50 Ml Syringe) 25 - 50 ml IV UD PRN; Protocol PRN Reason: Hypoglycemia Protocol Stop: 12/19/21 19:02 Diltiazem HCl (Diltiazem Hcl 240 Mg Capcr) 240 mg PO QAM [facility] Stop: 12/20/21 08:59 Last Admin: 11/20/21 08:04 Dose: 240 mg Documented by: Fluticasone Propionate (Fluticasone Propionate Na Spr 16 Gm Btl) 1 sprays NA BID [facility] Stop: 12/20/21 20:59 Glucagon (Glucagon For Inj 1 Mg Vial) 1 mg SQ UD PRN; Protocol PRN Reason: Hypoglycemia Protocol Stop: 12/19/21 19:02 Glucose (Glucose 10 Tabs/Tube) 4 - 8 tabs PO UD PRN; Protocol PRN Reason: Hypoglycemia Protocol Stop: 12/19/21 19:02 Glucose (Glucose 40% Gel 15 Gm Tube) 15 - 30 gm PO UD PRN; Protocol PRN Reason: Hypoglycemia Protocol Stop: 12/19/21 19:02 Piperacillin Sod/Tazobactam (Sod 3.375 gm/ Dextrose) 115 mls @ 30 mls/hr IV Q8H JOSE; Protocol Stop: 11/26/21 21:59 Last Admin: 11/20/21 14:50 Dose: 30 mls/hr Documented by: Vancomycin HCl 1,250 mg/ (Sodium Chloride) 275 mls @ 200 mls/hr IV Q12H [facility] Stop: 11/27/21 15:59 Last Infusion: 11/20/21 17:32 Dose: Infused Documented by: Insulin Aspart (Insulin Aspart Per Unit) 0 units SC ACHS [facility]; Protocol Stop: 12/19/21 20:59 Last Admin: 11/20/21 17:56 Dose: 1 units Documented by: Insulin Glargine (Insulin Glargine Solostar 100 Units/Ml 3 Ml Pen) 0 units SC BID [facility]; Protocol Stop: 12/19/21 20:59 Last Admin: 11/20/21 09:27 Dose: 30 units Documented by: Miscellaneous (Carbohydrates For Hypoglycemia ) 15 - 30 gm PO UD PRN PRN Reason: Hypoglycemia Protocol Stop: 12/19/21 19:02 Miscellaneous Information (Pharmacy Glycemic Mgmt Consult) 1 ea N/A UD PRN; Protocol PRN Reason: Consult Stop: 12/19/21 19:02 Miscellaneous Information (Vancomycin Consult Active) 1 ea N/A UD PRN PRN Reason: Consult Stop: 12/19/21 19:02 Miscellaneous Information (Piperacill/Tazobac Consult Active) 1 ea N/A UD PRN PRN Reason: Consult Stop: 12/19/21 19:02 Ondansetron HCl (Ondansetron Inj 2 Mg/Ml 2 Ml Vial) 4 mg IV Q6H PRN PRN Reason: Nausea Stop: 12/19/21 19:02 Polyethylene Glycol (Polyethylene (Miralax) 17 Gm Pack) 17 gm PO DAILY PRN PRN Reason: Constipation Stop: 12/19/21 19:02 Pregabalin (Pregabalin 150 Mg Cap) 150 mg PO PM [facility] Stop: 12/19/21 20:59 Last Admin: 11/19/21 23:05 Dose: 150 mg Documented by: Rosuvastatin Calcium (Rosuvastatin Calcium 10 Mg Tab) 10 mg PO QAM [facility] Stop: 12/20/21 08:59 Last Admin: 11/20/21 08:04 Dose: 10 mg Documented by: Tamsulosin HCl (Tamsulosin Hcl 0.4 Mg Cap) 0.4 mg PO HS [facility] Stop: 12/19/21 20:59 Last Admin: 11/19/21 23:05 Dose: 0.4 mg Documented by:
[2021-11-20] MEDS: PREGABALIN 150 MG CAP PO SCH (21:05)
[2021-11-20] MEDS: FLUTICASONE PROPIONATE NA SPR 16 GM BTL SCH (21:06)
[2021-11-20] MEDS: TAMSULOSIN HCL 0.4 MG CAP PO SCH (21:07)
[2021-11-20] MEDS: AMITRIPTYLINE HCL 25 MG TAB PO SCH (21:07)
[2021-11-21] MEDS: VANCOMYCIN HCL 1,250 MG in SODIUM CHLORIDE 0.9% 250 ML IV SCH ×2 (03:53→16:11)
[2021-11-21] MEDS: PIPERACILLIN/TAZOBACTAM 3.375 GM in DEXTROSE 5% 100 ML IV SCH ×2 (05:56→14:37)
[2021-11-21 06:26] LABS: Eosinophils # (auto) 0.03 K/uL (0-0.5); Eosinophils % (auto) 0.4 %; Hematocrit (blood only) 35.5 % (42-52); Hemoglobin 11.6 g/dL (14.0-18.0); Immature Granulocytes # (auto) 0.09 K/uL (0.00-0.02); Immature Granulocytes % (auto) 1.1 %; Lymphocytes # (auto) 1.39 K/uL (1.2-3.4); Lymphocytes % (auto) 17.5 %; Mean Corpuscular Hgb Conc 32.7 g/dL (32-36); Mean Corpuscular Volume 85.7 fL (80-100); Mean Platelet Volume 9.5 fL (7.4-10.4); Monocytes % (auto) 15.1 %; Neutrophils # (auto) 5.24 K/uL (1.4-6.5); Neutrophils % (auto) 65.9 %; Platelet Count 309 K/uL (130-400); RDW Standard Deviation 43.9 fL (36.4-46.3); Red Blood Count 4.14 M/uL (4.7-6.1); White Blood Count 7.95 K/uL (4.8-10.8)
[2021-11-21 06:49] LABS: BUN Creatinine Ratio 10.9 (10-20); Calcium 8.6 mg/dl (8.5-10.1); Creatinine Clr Calc Pharmacy 121.8 ml/min; Est GFR (African American) 107.4 ml/min; Est GFR (Non-African American) 92.6 ml/min; Potassium 3.6 mmol/L (3.5-5.1)
[2021-11-21] MEDS: dilTIAZem HCL 240 MG CAPCR PO SCH (08:35)
[2021-11-21] MEDS: ASPIRIN 81 MG ECTAB PO SCH (08:35)
[2021-11-21] MEDS: FLUTICASONE PROPIONATE NA SPR 16 GM BTL SCH (08:36)
[2021-11-21] MEDS: ROSUVASTATIN CALCIUM 10 MG TAB PO SCH (08:36)
[2021-11-21] MEDS ORDERED: ENOXAPARIN INJ 40 MG/0.4 ML SYR SQ SCH (09:00)
[2021-11-21] MEDS: INSULIN GLARGINE SOLOSTAR 100 UNITS/ML 3 ML PEN SC SCH (09:29)
[2021-11-21] MEDS: INSULIN ASPART PER UNIT SC SCH ×2 (09:30→12:59)
--- NOTE | 2021-11-21 17:25 | Hospitalist Progress Note ---
Date of Service November 21, 2021 Assessment & Plan Admission and Anticipated Discharge Date Admission Date: November 19, 2021 Results & Data Results & Data ([facility]) Vital Signs (Past 12 Hours) Vital Signs Temp Pulse Resp BP Pulse Ox 11/21/21 15:42 37.1 C 87 20 157/68 H 98 11/21/21 07:28 36.9 C 73 18 142/71 H 96
--- NOTE | 2021-11-21 17:28 | Discharge Summary ---
Date of Service November 21, 2021 Admission HPI Per Admitting Provider Mr Ramesh Tamez is a 55 year old man with history of renal transplant currently on Cellcept and monthly belatacept infusions, history of insulin dependent diabetes with neuropathy, hypertension, and hyperlipidemia presents to [facility] ER for ongoing fevers. Mr Tamez reports that he has been suffering from a cough x 3 weeks and associated body aches, fatigue, chills. His son had the same symptoms and went to Urgent Care for covid screen. Patient also went to Urgent Care and was prescribed a course of doxycycline for his URI. He reports that while being on the doxycycline his fever subsided somewhat. He finished his doxycycline course yesterday and since then, his fever is elevated again. He denies having recently been tested for Covid. He has not received his flu or covid vaccinations due to being on the belatacept infusions. Upon further evaluation, he admits to having a foot wound (bilateral heals but right >left) at least for the past 1 week. He reports his wound was from "filing his foot" and due to lack of sensation he went too far and caused injury. He has been administering local wound care to the area but it appears to be getting worse. He noted that the redness is much worse. Principal Diagnosis Bilateral diabetic foot wounds Right diabetic foot cellulitis Immunosuppressed state Discharge Exam Patient feels well Remains afebrile On exam-- he is pleasant, comfortable, no acute distress. Right foot redness has improved markedly. Still with bilateral foot ulcers Discharge Data Allergies Allergy/AdvReac Type Severity Reaction Status Date / Time ondansetron Allergy Intermediate confusion Unverified 11/19/21 16:31 bee venom protein (honey bee) Allergy Unknown SHORTNESS Verified 11/19/21 16:31 OF BREATH Consultations 11/19/21 16:16 ED Decision to Admit Stat 11/20/21 08:41 Consult Orthopedic Surgery Routine 11/20/21 18:27 Consult Infectious Diseases Routine Ordered Studies 11/20/21 11:35 MR ankle RT wo con Urgent Hospital Course Diabetic foot infection -Sepsis not present -received vancomycin and zosyn here with marked improvement -Right heel MRI negative for abscess, no underlying osteomyelitis -Nasal swab negative for MRSA -Patient will be discharged on Augmentin x 14 days. He will follow up with Dr Mccollum in the office in 10 days and final antibiotic duration TBD then -Patient should follow up at Wound Clinic for ongoing treatment of his bilateral diabetic ulcers -Patient was instructed to be non weight bearing of his right foot and to not place pressure on either heel, keep feet elevated as much as possible, Waffle boot ordered per Ortho Kidney Transplant Immunosuppressed state -ER provider discussed with [facility] Transplant surgeon, it is recommended we hold his Cellcept and Belatacept infusion currently due to active infection -Renal function remains stable -Patient was instructed to contact his Transplant team on Tuesday or earlier if possible to discuss when his Cellcept and Belatacept should be resumed HTN -continue diltiazem Insulin dependent diabetes -continue home basal/bolus regimen HLD -statin Total Time Total Time Spent Total Time Spent (In Minutes): 40 Discharge Plan Discharge Items Patient Disposition: Home - Self-Care Reason For Visit: DIABETIC FOOT INFECTION Discharge Diagnosis: Bilateral heal wounds Right medial and lateral foot wounds Right DM foot cellulitis Activity: As commented below Weightbearing: Right non-weightbearing Weightbearing Comment: Keep pressure off both heals. Elevate feet as much as possible. Non-emergency contact: Primary Care Provider and Specialist Call non-emergency contact if: you have any medication questions and you have a fever Follow-up/Referrals: Kelvin Schulte [Primary Care Provider] - Diet: Carb Consistent or DM2 Addtl Attending Provider Instructions: Please remain non weight bearing of your right foot until you are seen by your chief minister Please make an appointment at your Wound Clinic for your feet wounds You will be discharged on Augmentin twice a day for 2 weeks If you have fever/chills--> please call your doctor If you develop nausea/vomiting/diarrhea--> please call your doctor Please follow up with your Transplant Doctor on Tuesday to inquire whether you can resume your Transplant medications Dr Mccollum (orthopedic surgeon) would like to see you in the office in 10 days Pending Studies at Discharge: No Stand-Alone Forms: My [employer], Smoking Cessation Medications and DC Order Prescriptions: New fluticasone propionate 50 mcg/actuation [place],Suspension 1 spray NA BID 30 Days Qty: 1 RF: 1 amoxicillin-pot clavulanate 875-125 mg tablet 1 tab PO BID 14 Days Qty: 28 RF: 0 Continued aspirin [Aspirin Low Dose] 81 mg Tablet,Delayed Release (Dr/Ec) 81 mg PO QAM RF: 0 amitriptyline 25 mg tablet 25 mg PO HS RF: 0 tamsulosin [Flomax] 0.4 mg capsule 0.4 mg PO HS RF: 0 lidocaine [Lidoderm] 5 % adhesive patch,medicated 1 patch topical Q24H PRN (Reason: Pain) RF: 0 Glucagon Emergency Kit (human) 1 mg recon soln 1 mg subcut UD PRN (Reason: Hypoglycemia) RF: 0 epinephrine [EpiPen] 0.3 mg/0.3 mL auto-injector 0.3 mg subcut UD PRN (Reason: Anaphylaxis) RF: 0 rosuvastatin [Crestor] 20 mg tablet 10 mg PO QAM RF: 0 Basaglar KwikPen U-100 Insulin 100 unit/mL (3 mL) insulin pen 40 unit SUBCUT BID RF: 0 insulin lispro [Humalog KwikPen Insulin] 100 unit/mL insulin pen 20 unit SUBCUT AC MDD 100 units per day RF: 0 diltiazem HCl 240 mg capsule,extended release 24hr 240 mg PO QAM RF: 0 mycophenolate sodium 180 mg tablet,delayed release (DR/EC) 360 mg PO BID RF: 0 pregabalin 150 mg capsule 150 mg PO PM RF: 0 belatacept 250 mg Recon Soln 250 mg IV MONTHLY Qty: 0 RF: 0 acetaminophen [Tylenol] 325 mg Tablet 650 mg PO QID PRN (Reason: Fever) RF: 0 Discontinued ibuprofen 200 mg Tablet 400 mg PO Q6H PRN (Reason: Fever) RF: 0 Discharge Orders: Discharge Order (Routine); Ordered 11/21/21 Ordered By: Sam Liriano/Other Patient Handouts: Diabetes: Inspecting Your Feet, Cellulitis Dc, Diabetic Foot Press Injury Dc Admission Data Admit Date/Time: 11/19/21 17:19 Attending Provider: Sam Price Admit Provider: Sam Price Primary Care Provider: Kelvin Schulte Other Providers: Sam Price ; Valeriano Mccollum ; Vikram Gee ; Siddharth Rogers ; Sonny Clark I. ; Florin Bermudez II ; Danay Casanova ; Dong Corona ; Elier Yoo
[2021-11-22] MEDS ORDERED: VANCOMYCIN TROUGH ONE (03:30)
[2021-11-22 22:37] LABS: CMV DNA PCR Qual NOT DETECTED; Source Plasma
[2021-11-23 12:01] LABS: BK Virus Source Plasma
== END 2021-11-21 18:04 | disposition home or self-care (01) | DRG 638 ==
LOC: ED 12:36 → EDINP 17:19 → 3N 18:44

== ENCOUNTER 2021-12-16 18:00 | Inpatient (IN) ==
[2021-12-16 18:47] LABS: Basophils # (auto) 0.01 K/uL (0-0.2); Basophils % (auto) 0.1 %; Eosinophils # (auto) 0.09 K/uL (0-0.5); Eosinophils % (auto) 1.1 %; Hematocrit (blood only) 38.7 % (42-52); Hemoglobin 12.8 g/dL (14.0-18.0); Immature Granulocytes # (auto) 0.07 K/uL (0.00-0.02); Immature Granulocytes % (auto) 0.9 %; Lymphocytes % (auto) 15.3 %; Mean Corpuscular Hemoglobin 28.1 pg (25-34); Mean Corpuscular Hgb Conc 33.1 g/dL (32-36); Mean Corpuscular Volume 84.9 fL (80-100); Mean Platelet Volume 9.7 fL (7.4-10.4); Monocytes % (auto) 10.2 %; Neutrophils # (auto) 5.69 K/uL (1.4-6.5); Neutrophils % (auto) 72.4 %; Platelet Count 331 K/uL (130-400); RDW Coefficient of Variation 14.2 % (11.5-14.5); RDW Standard Deviation 43.9 fL (36.4-46.3); Red Blood Count 4.56 M/uL (4.7-6.1); White Blood Count 7.86 K/uL (4.8-10.8)
[2021-12-16 19:01] LABS: INR 1.2 (0.9-1.1); Partial Thromboplastin Ratio 0.9; Partial Thromboplastin Time 23.8 Seconds (21.0-31.0); Prothrombin Time 12.6 Seconds (9.0-12.0)
[2021-12-16 19:09] LABS: Troponin I < 0.03 ng/ml (0-0.04)
[2021-12-16 19:32] LABS: Alanine Aminotransferase 12 U/L (7-52); Albumin Globulin Ratio 1.1 (0.9-2); Albumin Level 3.9 gm/dl (3.4-5.0); Alkaline Phosphatase 74 U/L (34-104); Anion Gap 8 (3-11); Aspartate Aminotransferase 14 U/L (13-39); BUN Creatinine Ratio 15.7 (10-20); Bilirubin,Total 0.6 mg/dl (0.2-1.0); Blood Urea Nitrogen 17 mg/dl (6-23); Carbon Dioxide 23 mmol/L (21-32); Chloride 100 mmol/L (98-107); Creatinine Clr Calc Pharmacy 103.2 ml/min; Est GFR (African American) 88.5 ml/min; Est GFR (Non-African American) 76.3 ml/min; Globulin 3.7 gm/dl (2.5-4.0); Glucose 153 mg/dl (70-99(Fasting)); Magnesium 1.8 mg/dl (1.7-2.4); Potassium 4.2 mmol/L (3.5-5.1); Sodium 131 mmol/L (136-145); Total Protein 7.6 gm/dl (6.0-8.3)
--- NOTE | 2021-12-16 20:11 | XRay Report ---
XR foot RT min 3V routine HISTORY: 55 years-old Male R foot ulcer acute right foot pain with reported soft tissue ulcer COMPARISON: MRI right ankle 11/20/2021, MRI right foot 11/19/2021 TECHNIQUE: 3 views of the right foot FINDINGS: Multifocal osteoarthritis, 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 Arterial calcifications. Moderate soft ti ssue swelling of the hindfoot there is a suggested soft tissue ulcer involving the lateral medial. Th ere is questioned subcutaneous emphysema. No opaque foreign body or osseous erosions identified. IMPRESSION: 1. No acute fracture or osseous erosion. 2. Soft tissue swelling with suggested ulcer of the hindfoot. Questioned deep tissue gas be secondary to gas-forming organism. Correlate with clinical exam findings. ACT 112: Negative or not required by law. The above report was generated using voice recognition software. It may contain grammatical, syntax o r spelling errors. Electronically signed by: Martín Ramos M.D. 12/16/2021 8:10 PM
[2021-12-16] MEDS ORDERED: PIPERACILLIN/TAZOBACTAM 4.5 GM/120 ML BAG IV ONE (21:05)
[2021-12-16] MEDS ORDERED: CLINDAMYCIN 300 MG in DEXTROSE 5% 50 ML IV ONE (21:05)
[2021-12-16] MEDS ORDERED: OPTIRAY 320 125ml IV ONE (22:46)
--- NOTE | 2021-12-16 22:48 | Orthopedic Consultation ---
Date of Consultation December 16, 2021 Assessment & Plan (1) Ulcer of right foot due to type 2 diabetes mellitus: Patient seen, evaluated, and treated. Deep Wound Culture taken at bedside. Concern for OM due to wound probe to bone. MRI ordered to evaluate for OM. Patient will require further debridement this may be completed possibly at bedside if MRI is negative. Wound prefer use of Versajet. Off loading is critical part of this Patient's management. This was discussed with Patient and will be initiated prior to discharge. Betadine dressing applied. Thank you for allowing me to participate in the care of this Patient. I will continue to follow while in house. (2) Diabetic foot infection: Awaiting Wound cultures taken at today's visit 12/16/21 Patient started on Zosyn and Clindamycin History of Present Illness Requesting Physician: Dr. Ruth History of Present Illness Patient is a type II diabetic, 55 year old male who is seen in [facility] ED for non healing right heel wound. Patient has PMH of history which includes renal transplant (currently on Cellcept and monthly belatacept infusions), history of insulin dependent diabetes with neuropathy, hypertension, and hyperlipidemia. He states wound has progressed significantly since his discharge from [facility] 11/21/20. He is seen at bedside with his who helps with history and care. She states he has been seen by Wound Center once per week since his discharge. Treatment has included debridement and Wound Vac. Off loading of wound has not been initiated and Patient presents in sandals. Patient was seen most recently by PCP due to malodor, erythema, edema, and wound progression. PCP recommended coming to ED for IV antibiotics. Allergies Allergy/AdvReac Type Severity Reaction Status Date / Time ondansetron Allergy Intermediate confusion Unverified 12/16/21 19:21 bee venom protein (honey bee) Allergy Unknown SHORTNESS Verified 12/16/21 19:21 OF BREATH Home Medications Medication Instructions Recorded Confirmed Type amitriptyline 25 mg tablet 25 mg PO HS 09/11/19 12/16/21 History aspirin 81 mg tablet,delayed 81 mg PO QAM 09/11/19 12/16/21 History release (Aspirin Low Dose) epinephrine 0.3 mg/0.3 mL 0.3 mg SUBCUT UD PRN 09/11/19 12/16/21 History injection, auto-injector (EpiPen) insulin glargine 100 unit/mL (3 40 unit SUBCUT BID 09/11/19 12/16/21 History mL) subcutaneous pen (Basaglar KwikPen U-100 Insulin) insulin lispro 100 unit/mL 22 unit SUBCUT AC MDD 100 units 09/11/19 12/16/21 History subcutaneous pen (Humalog KwikPen per day (U-100) Insulin) rosuvastatin 20 mg tablet (Crestor) 10 mg PO QAM 09/11/19 12/16/21 History tamsulosin 0.4 mg capsule (Flomax) 0.4 mg PO HS 09/11/19 12/16/21 History diltiazem HCl 240 mg 240 mg PO QAM 05/29/20 12/16/21 History capsule,extended release 24 hr belatacept 250 mg intravenous 250 mg IV MONTHLY #0 05/30/20 12/16/21 History solution mycophenolate sodium 180 mg 360 mg PO BID 05/30/20 12/16/21 History tablet,delayed release pregabalin 150 mg capsule 150 mg PO PM 05/30/20 12/16/21 History acetaminophen 325 mg tablet 650 mg PO QID PRN 11/19/21 12/16/21 History (Tylenol) fluticasone propionate 50 1 spray NA BID 30 Days #1 g 11/21/21 12/16/21 Rx mcg/actuation nasal spray,suspension collagenase clostridium histo. 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 Beliefs That Will Affect Care: None marital status: Current Living Situation: Spouse Feels Safe at Home: Yes Assistive Devices: Cane Review of Systems Constitutional: + chills, + malaise and + weakness; no fever and no sweats Eyes: no blind spots and no tunnel vision Ear, Nose, Mouth, Throat: as per Subjective / HPI; no ear pain and no dry mouth Respiratory: no cough, no dyspnea and no wheezing Cardiovascular: no chest pain Gastrointestinal: no abdominal pain Musculoskeletal: + swelling and + muscle weakness Integumentary: as per Subjective / HPI, + skin ulcer, + wounds and + erythema Neurologic: as per Subjective / HPI Psychiatric: as per Subjective / HPI; no behavioral changes and no hallucinations Endocrine: as per Subjective / HPI Hematologic / Lymphatic: as per Subjective / HPI Allergy / Immunological: as per Subjective / HPI Physical Exam Physical Exam: Focused Exam: Wound location: Right heel ulcer Wound base color and depth: Full thickness wound probes to bone Wound size (cm): roughly 5 x 5 x 1 cm Odor: + malodor Drainage: moderate serous Undermining: mild circumferential Borders: necrotic Constitutional: + ill appearing Eyes: PERRL, conjunctivae normal, anicteric sclerae ENMT: external ear and nose normal, oropharynx normal Neck: trachea midline, no thyromegaly Respiratory: normal respiratory effort, lungs clear to auscultation Cardiovascular: Rate/Rhythm: regular rate and regular rhythm Musculoskeletal: Head/Neck/Chest: normocephalic and + abnormal inspection of chest wall Neurologic: + abnormal touch/pain/proprioception and no focal motor deficits Psychiatric: A+Ox3, euthymic affect Results & Data ([facility]) Vital Signs (Past 12 Hours) Vital Signs Temp Pulse Pulse Resp BP BP Pulse Ox 12/16/21 21:42 94 H 18 109/67 99 12/16/21 20:11 95 H 20 98 12/16/21 20:00 95 H 20 140/67 98 12/16/21 18:11 36.9 C 91 H 18 100/62 96 Diagnostic Findings X-ray RIght foot IMPRESSION: 1. No acute fracture or osseous erosion. 2. Soft tissue swelling with suggested ulcer of the hindfoot. Questioned deep tissue gas be secondary to gas-forming organism. Correlate with clinical exam findings.
--- NOTE | 2021-12-16 23:25 | Emergency Department Note ---
History of Present Illness General Chief complaint: Infection, Wound Stated complaint: WOUND ON R FOOT; INFECTED Time Seen by Provider: 12/16/21 19:10 History of Present Illness Provider complaint: Foot wound Onset (ago): month(s) Location: lower extremity and right Radiation: non-radiation Pain Consistency: + constant Associated symptoms: no chest pain, no cough, no fever/chills, no headaches, no nausea/vomiting, no shortness of breath, no syncope or no weakness 55-year-old male presents emergency department for right foot wound. Patient states he has been seeing a cras in [facility] as well as [place] [facility]. states that he has been dealing with this for many months. He states that he has had multiple debridements by podiatry and has had a wound VAC. Patient states he saw his cras today and they did not think there was much more they could do at the wound care center so they recommended that he go to either [facility] emergency department or this emergency department. Patient states he called [facility] and they told him there was a long wait so he chose to come to this 1. He denies any fevers. Patient is a diabetic. Home Medications Medication Instructions Recorded Confirmed Type amitriptyline 25 mg tablet 25 mg PO HS 09/11/19 12/16/21 History aspirin 81 mg tablet,delayed 81 mg PO QAM 09/11/19 12/16/21 History release (Aspirin Low Dose) epinephrine 0.3 mg/0.3 mL 0.3 mg SUBCUT UD PRN 09/11/19 12/16/21 History injection, auto-injector (EpiPen) insulin glargine 100 unit/mL (3 40 unit SUBCUT BID 09/11/19 12/16/21 History mL) subcutaneous pen (Basaglar KwikPen U-100 Insulin) insulin lispro 100 unit/mL 22 unit SUBCUT AC MDD 100 units 09/11/19 12/16/21 History subcutaneous pen (Humalog KwikPen per day (U-100) Insulin) rosuvastatin 20 mg tablet (Crestor) 10 mg PO QAM 09/11/19 12/16/21 History tamsulosin 0.4 mg capsule (Flomax) 0.4 mg PO HS 09/11/19 12/16/21 History diltiazem HCl 240 mg 240 mg PO QAM 05/29/20 12/16/21 History capsule,extended release 24 hr belatacept 250 mg intravenous 250 mg IV MONTHLY #0 05/30/20 12/16/21 History solution mycophenolate sodium 180 mg 360 mg PO BID 05/30/20 12/16/21 History tablet,delayed release pregabalin 150 mg capsule 150 mg PO PM 05/30/20 12/16/21 History acetaminophen 325 mg tablet 650 mg PO QID PRN 11/19/21 12/16/21 History (Tylenol) fluticasone propionate 50 1 spray NA BID 30 Days #1 g 11/21/21 12/16/21 Rx mcg/actuation nasal spray,suspension collagenase clostridium histo. 250 1 applic TOPICAL UD 12/16/21 12/16/21 History unit/gram topical ointment (Santyl) sildenafil 25 mg tablet 25 mg PO UD PRN 12/16/21 12/16/21 History Allergies Allergy/AdvReac Type Severity Reaction Status Date / Time ondansetron Allergy Intermediate confusion Unverified 12/16/21 19:21 bee venom protein (honey bee) Allergy Unknown SHORTNESS Verified 12/16/21 19:21 OF BREATH Past Med/Surg History Medical History Diabetes Gastroparesis History of peritoneal dialysis Hypertension Surgical History Hx of kidney transplant September 2017 Prema Albarran Family History Other Family history non-contributory Social History Smoking Status: Never smoker Hx Alcohol Use: No Hx Substance Use: No Preferred Language: Filipino Communication Ability: Effective 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 Coordinator Required: Yes Beliefs That Will Affect Care: None marital status: Current Living Situation: Spouse Feels Safe at Home: Yes Assistive Devices: Cane Review of Systems A total of 10 systems reviewed and were otherwise negative Physical Exam Vital Signs Vital Signs - 24 hr 12/16/21 18:11 12/16/21 20:00 12/16/21 20:11 Temperature 36.9 C Temperature Source Temporal Artery Scan Pulse Rate 91 H 95 H Pulse Rate [Finger] 95 H Respiratory Rate 18 20 20 Respiratory Effort / Characteristics Non-Labored Respiratory Depth Normal Respiratory Pattern Regular Blood Pressure 100/62 Blood Pressure [Right Arm] 140/67 Blood Pressure Mean 74 Blood Pressure Mean [Right Arm] 91 Blood Pressure Position [Right Arm] Sitting Pulse Oximetry 96 98 98 Oxygen Delivery Method Room Air Room Air Room Air Sepsis Recent Fever Within 48 Hours No Sepsis New/Unexplained Change in Mental Status No Sepsis Action Taken by Nursing No Action Required 12/16/21 21:42 Temperature Temperature Source Pulse Rate Pulse Rate [Finger] 94 H Respiratory Rate 18 Respiratory Effort / Characteristics Respiratory Depth Respiratory Pattern Blood Pressure Blood Pressure [Right Arm] 109/67 Blood Pressure Mean Blood Pressure Mean [Right Arm] 81 Blood Pressure Position [Right Arm] Pulse Oximetry 99 Oxygen Delivery Method Room Air Sepsis Recent Fever Within 48 Hours Sepsis New/Unexplained Change in Mental Status Sepsis Action Taken by Nursing Physical Exam GENERAL: He is oriented to person, place, and time. He appears well-developed and well-nourished. He does not appear distressed. HENT: Exam performed. - Head: Normocephalic and atraumatic. - Right Ear: External ear normal. No mastoid tenderness. - Left Ear: External ear normal. No mastoid tenderness. - Mouth/Throat: The oropharynx is clear and moist. No trismus in the jaw. No dental abscesses or uvula swelling. No oropharyngeal exudate or tonsillar abscesses. EYES: Conjunctivae and EOM are normal. Pupils are equal, round, and reactive to light. Right eye exhibits no discharge. Left eye exhibits no discharge. No scleral icterus. NECK: Normal range of motion. Neck supple. No JVD present. No spinous process tenderness present. No carotid bruit present. No rigidity. No tracheal deviation and normal range of motion present. No Brudzinski's sign and no Kernig's sign noted. CV: Normal rate, regular rhythm, normal heart sounds and intact distal pulses. There is no peripheral edema. Palpable radial pulses bue. PULM/CHEST: Effort normal and breath sounds normal. No respiratory distress. No stridor. He has no wheezes. He has no rales. - Chest Wall: He exhibits no tenderness. ABD: The abdomen is soft. Bowel sounds are normal. He has no distension. No mass is present. There is no tenderness. There is no rebound, no guarding, no Ortiz's sign and no tenderness at McBurney's point. Rovsig negative. MUSC/SKEL: Normal range of motion. Palpable DP and PT pulses bilateral lower extremities. Large right heel wound ulcer that is down to his calcaneus with very malodorous foul-smelling discharge coming from it. LYMPH: No cervical adenopathy. NEURO: He is alert and oriented to person, place, and time. He has normal strength. No cranial nerve deficit or sensory deficit. GCS eye subscore is 4. GCS verbal subscore is 5. GCS motor subscore is 6. Cerebellar tests wnl. Course Course 1909: The patient was evaluated in room A10. A complete history and physical exam was performed Cardiac monitoring: An order was placed for continuous cardiac monitoring. The monitor shows a rate of 90 with sinus rhythm 2018: Labs within normal limits. X-ray shows soft tissue swelling with deep tissue gas of the heel. Discussed the case with on-call podiatry Dr. Donaldson who states he will be in to evaluate the patient. He states not to give any antibiotics until he evaluates the patient. 2100: Vital signs stable. Dr. Donaldson evaluated the patient at bedside. He recommends MRI of the heel as well as consult vascular surgery and a CTA of the lower extremity. He recommends patient be given Zosyn and clindamycin for antibiotics. He states place the patient in the Betadine dressing and he will evaluate the patient in the morning for operative debridement versus bedside department. He recommends admission to the hospital service. [facility] hospitalist team will be notified. Administered Medications Discontinued Medications Piperacillin Sod/Tazobactam Sod (Zosyn) 4.5 gm in 120 mls @ 240 mls/hr IV NOW O NE Stop: 12/16/21 21:34 Last Infusion: 12/16/21 22:32 Dose: 0 mls/hr Documented by: [id number] Admin: 12/16/21 21:40 Dose: 240 mls/hr Documented by: [id number] Clindamycin Phosphate 300 mg/ (Dextrose) 52 mls @ 100 mls/hr IV ONE ONE Stop: 12/16/21 21:36 Last Admin: 12/16/21 22:54 Dose: 100 mls/hr Documented by: [id number] Ioversol (Optiray 320 125ml) 125 ml IV ONCE ONE Stop: 12/16/21 22:47 Last Admin: 12/16/21 22:47 Dose: 120 ml Documented by: [id number] Medical Decision Making Laboratory Data Result diagrams: 12/16/21 18:37 12/16/21 18:37 Lab Results 12/16/21 12/16/21 12/16/21 Range/Units 18:37 18:37 18:37 WBC 7.86 (4.8-10.8) K/uL RBC 4.56 L (4.7-6.1) M/uL Hgb 12.8 L (14.0-18.0) g/dL Hct 38.7 L (42-52) % MCV 84.9 (80-100) fL MCH 28.1 (25-34) pg MCHC 33.1 (32-36) g/dL RDW Std Deviation 43.9 (36.4-46.3) fL RDW Coeff of Dandre 14.2 (11.5-14.5) % Plt Count 331 (130-400) K/uL MPV 9.7 (7.4-10.4) fL Immature Gran % (Auto) 0.9 % Neut % (Auto) 72.4 % Lymph % (Auto) 15.3 % [place] % (Auto) 10.2 % Eos % (Auto) 1.1 % Baso % (Auto) 0.1 % Neut # (Auto) 5.69 (1.4-6.5) K/uL Lymph # (Auto) 1.20 (1.2-3.4) K/uL [place] # (Auto) 0.80 H (0.11-0.59) K/uL Eos # (Auto) 0.09 (0-0.5) K/uL Baso # (Auto) 0.01 (0-0.2) K/uL Immature Gran # (Auto) 0.07 H (0.00-0.02) K/uL PT 12.6 H (9.0-12.0) Seconds INR 1.2 H (0.9-1.1) APTT 23.8 (21.0-31.0) Seconds PTT Ratio 0.9 Sodium 131 L (136-145) mmol/L Potassium 4.2 (3.5-5.1) mmol/L Chloride 100 (98-107) mmol/L Carbon Dioxide 23 (21-32) mmol/L Anion Gap 8 (3-11) BUN 17 (6-23) mg/dl Creatinine 1.08 (0.6-1.4) mg/dl Est Cr Clr Drug Dosing 103.2 ml/min Est GFR ( Amer) 88.5 ml/min Est GFR (Non-Af Amer) 76.3 ml/min BUN/Creatinine Ratio 15.7 (10-20) Glucose 153 H (70-99(Fasting)) mg/dl Lactate (0.4-2.0) mmol/L Calcium 10.0 (8.5-10.1) mg/dl Magnesium 1.8 (1.7-2.4) mg/dl Total Bilirubin 0.6 (0.2-1.0) mg/dl AST 14 (13-39) U/L ALT 12 (7-52) U/L Alkaline Phosphatase 74 (34-104) U/L Troponin I < 0.03 (0-0.04) ng/ml Total Protein 7.6 (6.0-8.3) gm/dl Albumin 3.9 (3.4-5.0) gm/dl Globulin 3.7 (2.5-4.0) gm/dl Albumin/Globulin Ratio 1.1 (0.9-2) Procalcitonin (0-0.5) ng/ml 12/16/21 12/16/21 12/16/21 Range/Units 18:37 19:55 21:31 WBC (4.8-10.8) K/uL RBC (4.7-6.1) M/uL Hgb (14.0-18.0) g/dL Hct (42-52) % MCV (80-100) fL MCH (25-34) pg MCHC (32-36) g/dL RDW Std Deviation (36.4-46.3) fL RDW Coeff of Dandre (11.5-14.5) % Plt Count (130-400) K/uL MPV (7.4-10.4) fL Immature Gran % (Auto) % Neut % (Auto) % Lymph % (Auto) % [place] % (Auto) % Eos % (Auto) % Baso % (Auto) % Neut # (Auto) (1.4-6.5) K/uL Lymph # (Auto) (1.2-3.4) K/uL [place] # (Auto) (0.11-0.59) K/uL Eos # (Auto) (0-0.5) K/uL Baso # (Auto) (0-0.2) K/uL Immature Gran # (Auto) (0.00-0.02) K/uL PT (9.0-12.0) Seconds INR (0.9-1.1) APTT (21.0-31.0) Seconds PTT Ratio Sodium (136-145) mmol/L Potassium (3.5-5.1) mmol/L Chloride (98-107) mmol/L Carbon Dioxide (21-32) mmol/L Anion Gap (3-11) BUN (6-23) mg/dl Creatinine (0.6-1.4) mg/dl Est Cr Clr Drug Dosing ml/min Est GFR ( Amer) ml/min Est GFR (Non-Af Amer) ml/min BUN/Creatinine Ratio (10-20) Glucose (70-99(Fasting)) mg/dl Lactate 1.2 0.4 (0.4-2.0) mmol/L Calcium (8.5-10.1) mg/dl Magnesium (1.7-2.4) mg/dl Total Bilirubin (0.2-1.0) mg/dl AST (13-39) U/L ALT (7-52) U/L Alkaline Phosphatase (34-104) U/L Troponin I (0-0.04) ng/ml Total Protein (6.0-8.3) gm/dl Albumin (3.4-5.0) gm/dl Globulin (2.5-4.0) gm/dl Albumin/Globulin Ratio (0.9-2) Procalcitonin 0.12 (0-0.5) ng/ml Imaging Data Radiologist's Impression: Foot X-Ray 12/16/21 19:11 XR foot RT min 3V routine HISTORY: 55 years-old Male R foot ulcer acute right foot pain with reported soft tissue ulcer COMPARISON: MRI right ankle 11/20/2021, MRI right foot 11/19/2021 TECHNIQUE: 3 views of the right foot FINDINGS: Multifocal osteoarthritis, 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 Arterial calcifications. Moderate soft tissue swelling of the hindfoot there is a suggested soft tissue ulcer involving the lateral medial. There is questioned subcutaneous emphysema. No opaque foreign body or osseous erosions identified. IMPRESSION: 1. No acute fracture or osseous erosion. 2. Soft tissue swelling with suggested ulcer of the hindfoot. Questioned deep tissue gas be secondary to gas-forming organism. Correlate with clinical exam findings. ACT 112: Negative or not required by law. The above report was generated using voice recognition software. It may contain grammatical, syntax or spelling errors. Electronically signed by: Martín Ramos M.D. 12/16/2021 8:[address] [facility] Narrative 1909: The patient was evaluated in room A10. A complete history and physical exam was performed Cardiac monitoring: An order was placed for continuous cardiac monitoring. The monitor shows a rate of 90 with sinus rhythm 2018: Labs within normal limits. X-ray shows soft tissue swelling with deep tissue gas of the heel. Discussed the case with on-call podiatry Dr. Donaldson who states he will be in to evaluate the patient. He states not to give any antibiotics until he evaluates the patient. 2100: Vital signs stable. Dr. Donaldson evaluated the patient at bedside. He recommends MRI of the heel as well as consult vascular surgery and a CTA of the lower extremity. He recommends patient be given Zosyn and clindamycin for antibiotics. He states place the patient in the Betadine dressing and he will evaluate the patient in the morning for operative debridement versus bedside department. He recommends admission to the hospital service. [facility] hospitalist team will be notified. Impression & Plan Diabetic foot infection Discharge Plan Visit Data Chief Complaint: Infection, Wound Stated Complaint: WOUND ON R FOOT; INFECTED Discharge Problem: Diabetic foot infection Patient Disposition: Admitted As Inpatient Forms Stand Alone Forms: [facility] Prescriptions Prescriptions: No Action aspirin [Aspirin Low Dose] 81 mg Tablet,Delayed Release (Dr/Ec) 81 mg PO QAM RF: 0 amitriptyline 25 mg tablet 25 mg PO HS RF: 0 tamsulosin [Flomax] 0.4 mg capsule 0.4 mg PO HS RF: 0 epinephrine [EpiPen] 0.3 mg/0.3 mL auto-injector 0.3 mg subcut UD PRN (Reason: Anaphylaxis) RF: 0 rosuvastatin [Crestor] 20 mg tablet 10 mg PO QAM RF: 0 Basaglar KwikPen U-100 Insulin 100 unit/mL (3 mL) insulin pen 40 unit SUBCUT BID RF: 0 insulin lispro [Humalog KwikPen Insulin] 100 unit/mL insulin pen 22 unit SUBCUT AC MDD 100 units per day RF: 0 diltiazem HCl 240 mg capsule,extended release 24hr 240 mg PO QAM RF: 0 mycophenolate sodium 180 mg tablet,delayed release (DR/EC) 360 mg PO BID RF: 0 pregabalin 150 mg capsule 150 mg PO PM RF: 0 belatacept 250 mg Recon Soln 250 mg IV MONTHLY Qty: 0 RF: 0 sildenafil 25 mg tablet 25 mg PO UD PRN (Reason: Edema) RF: 0 Santyl 250 unit/gram ointment 1 applic TOPICAL UD RF: 0 acetaminophen [Tylenol] 325 mg Tablet 650 mg PO QID PRN (Reason: Fever) RF: 0 fluticasone propionate 50 mcg/actuation [place],Suspension 1 spray NA BID 30 Days Qty: 1 RF: 1 Referrals Referrals: Kelvin Schulte [Primary Care Provider] -
[2021-12-17] MEDS ORDERED: GADOBUTROL 65ML VIAL IV ONE (00:43)
--- NOTE | 2021-12-17 01:14 | History and Physical Report ---
DATE OF ADMISSION: 12/16/2021. CHIEF COMPLAINT: Nonhealing diabetic foot ulcer. HISTORY OF PRESENT ILLNESS: This is a 55-year-old male with past medical history significant for type 2 diabetes, diabetic retinopathy, history of severe sleep apnea, history of CAD s/p stent placement, hypertension, orthostatic hypertension, history of multiple closed fractures of cervical vertebrae, peripheral neuropathic pain, history of syncope and collapse, tobacco use disorder, history of kidney transplant,Presents with nonhealing diabetic foot ulcer. The patient was here in the hospital on 11/19/2021. At that time also, was found to have right ankle wound. He said he was having the wound one week prior to that and was treated with antibiotics last admission for about 2 weeks, following with the wound clinic. He was not getting better. Having foul smelling and black in color and was advised to come to the hospital. Seen by the Podiatry in the ER and recommended CTA of the right lower extremity and also vascular surgery consult. Also had MRI of the right foot. The patient says he could not feel much in his leg, so could not feel much pain. Supposed to not put weight on the leg, but he is ambulating with a cane. Denies any fever or chills. No headache, no blurred visions. Has some runny nose, but nothing constant, has some occasional cough. He has some ongoing issues with difficulty swallowing. He says he has cough since he had the cervical fracture and also has some difficulty swallowing once in a while. Appetite is okay. No chest pain or shortness of breath. No nausea, no vomiting, no abdominal pain. Normal bowel and bladder movements. Currently, resting comfortably and hemodynamically stable. ALLERGIES: ZOFRAN, BEE VENOM. PAST MEDICAL HISTORY: As mentioned above. PAST SURGICAL HISTORY: Cystoscopy, full dental extractions, injection of the eye drug, insertion of tunneled catheter, cataract surgery, cardiac stent, removal of inner eye fluid, transplantation of the kidney. MEDICATIONS: The patient is on Tylenol 650 mg p.o. q.i.d. p.r.n., amitriptyline 25 mg p.o. at bedtime, aspirin 81 mg p.o. a.m., Basaglar insulin 40 units subcutaneous b.i.d., belatacept 250 mg IV monthly, Santyl topical p.r.n., diltiazem 240 mg p.o. a.m., epinephrine p.r.n., Flonase b.i.d. p.r.n., insulin lispro 22 units subcutaneously a.c., mycophenolate sodium 360 mg p.o. b.i.d., pregabalin 150 mg p.o. p.m., Crestor 10 mg p.o. a.m., Flomax 0.4 mg p.o. at bedtime. FAMILY HISTORY: Significant for father had colorectal cancer; mother has diabetes, heart disorder; father has heart disorder; brother has heart disorder. SOCIAL HISTORY: . No smoking, no alcohol, no drug use. REVIEW OF SYSTEMS: As per HPI. Rest of the review of systems is negative. PHYSICAL EXAMINATION: GENERAL: The patient is alert and oriented, not in acute distress. VITAL SIGNS: Temperature 36.9, pulse 94, respiratory rate 18, blood pressure 109/67, oxygen 99% on room air. HEENT: Pupils equal, round and reactive to light. Oral mucosa moist. NECK: No JVD or neck masses. CARDIOVASCULAR: S1 and S2 heard. Regular rate and rhythm. No murmur, no gallop. RESPIRATORY SYSTEM: Normal AP diameter. No accessory muscle use. No wheezing, no crackles. ABDOMEN: Soft, bowel sounds present, nontender, no distention. CENTRAL NERVOUS SYSTEM: Cranial nerves II-XII grossly intact, nonfocal. EXTREMITIES: Right ankle in the posterior aspect, foul smelling dark colored deep ulcer seen. LABORATORY DATA: WBC 7.8, hemoglobin 12.8, hematocrit 38.7, platelets 331. PT 12.6, INR 1.2, APTT 23.8. Sodium 131, potassium 4.2, chloride 100, bicarbonate 23, BUN 17, creatinine 1.08, serum glucose 153, lactate 0.4, calcium 10, magnesium 1.8, total bilirubin 0.6, AST 14, ALT 12, alkaline phosphatase 74. Troponin I less than 0.03. Procalcitonin 0.12. SARS-CoV-2 pending. IMAGING DATA: Foot x-ray, no acute fracture or osseous erosion. Soft tissue swelling with suggested ulcer of the hindfoot. Questionable deep tissue gas, may be secondary to gas forming organism, correlate with clinical findings. ASSESSMENT AND PLAN: This is a 55-year-old male who presents with nonhealing diabetic foot ulcer. 1. Nonhealing diabetic foot ulcer on the right ankle: It is going on for a month. He was treated with antibiotics for two weeks the last month. It was not getting better. Following with wound clinic. Seen by bundle clerk in the ER today. Recommended MRI scan of the leg and also CT of the right lower extremity and vascular surgery consult and clindamycin and Zosyn, which will be continued. Will keep him n.p.o. for now, IV fluids, and await podiatry input in the a.m. Monitor in the medical floor. 2. History of diabetes: Will cut back on his long-acting insulin to 20 units b.i.d. because the patient is currently n.p.o. and placed on sliding scale. Follow the HbA1c level. Follow the blood sugars. 3. Status post renal transplant: On mycophenolate 360 mg p.o. b.i.d. and on belatacept 250 mg IV monthly, next due on end of this month. Follow up with transplant center. If needed, will discuss with transplant center about holding anti rejection meds. 4. History of coronary artery disease, status post stent: On aspirin and statin, on diltiazem. Currently stable. 5. History of severe sleep apnea: On CPAP at bedtime. 6. History of hypertension: Continue with diltiazem. Will monitor the blood pressure. 7. Hyperlipidemia: Continue statin. 8. History of chronic cough: Says it is since the cervical vertebral fracture and also has some difficulty swallowing once in a while. Never had speech evaluation. Will get speech evaluation while the patient is in the hospital. 9. Deep venous thrombosis prophylaxis: Will place sequential compression devices for now in anticipation of procedure.When able will place him on Lovenox. DISPOSITION: Closely monitor in medical floor. PT, OT prior to discharge. Social service to help with discharge planning. Job ID: [id number] [facility]
[2021-12-17] MEDS ORDERED: PIPERACILL/TAZOBAC CONSULT ACTIVE PRN (04:17)
[2021-12-17] MEDS ORDERED: POLYETHYLENE (MIRALAX) 17 GM PACK PO PRN (04:17)
[2021-12-17] MEDS ORDERED: EPINEPHrine INJ 1 MG/ML AMP IM PRN (04:27)
[2021-12-17] MEDS: SODIUM CHLORIDE 0.9% 1000ML 1,000 ML IV SCH ×2 (05:11→15:28)
[2021-12-17] MEDS: CLINDAMYCIN 600 MG in DEXTROSE 5% 50 ML IV SCH ×3 (05:11→21:49)
[2021-12-17] MEDS: ACETAMINOPHEN 325 MG TAB PO PRN ×2 (05:11→21:47)
[2021-12-17 05:55] LABS: Basophils # (auto) 0.01 K/uL (0-0.2); Basophils % (auto) 0.2 %; Eosinophils # (auto) 0.02 K/uL (0-0.5); Eosinophils % (auto) 0.4 %; Hematocrit (blood only) 34.3 % (42-52); Hemoglobin 11.3 g/dL (14.0-18.0); Immature Granulocytes # (auto) 0.06 K/uL (0.00-0.02); Immature Granulocytes % (auto) 1.1 %; Lymphocytes # (auto) 0.71 K/uL (1.2-3.4); Lymphocytes % (auto) 13.5 %; Mean Corpuscular Hgb Conc 32.9 g/dL (32-36); Mean Corpuscular Volume 85.1 fL (80-100); Mean Platelet Volume 9.5 fL (7.4-10.4); Monocytes # (auto) 0.57 K/uL (0.11-0.59); Monocytes % (auto) 10.8 %; Platelet Count 292 K/uL (130-400); RDW Coefficient of Variation 14.2 % (11.5-14.5); RDW Standard Deviation 44.3 fL (36.4-46.3); Red Blood Count 4.03 M/uL (4.7-6.1); White Blood Count 5.27 K/uL (4.8-10.8)
[2021-12-17] MEDS: PIPERACILLIN/TAZOBACTAM 3.375 GM in DEXTROSE 5% 100 ML IV SCH ×3 (05:59→21:47)
[2021-12-17] MEDS: INSULIN ASPART PER UNIT SC SCH ×3 (06:10→18:41)
[2021-12-17 06:13] LABS: BUN Creatinine Ratio 17.6 (10-20); Calcium 9.2 mg/dl (8.5-10.1); Creatinine Clr Calc Pharmacy 120.9 ml/min; Est GFR (African American) 108.8 ml/min; Est GFR (Non-African American) 93.9 ml/min; Magnesium 1.7 mg/dl (1.7-2.4); Potassium 4.1 mmol/L (3.5-5.1)
[2021-12-17 06:45] LABS: Estimated Average Glucose 212 mg/dl
[2021-12-17] MEDS ORDERED: MYCOPHENOLATE SODIUM 180 MG TAB PO SCH (09:00)
--- NOTE | 2021-12-17 10:08 | CT Scan Report ---
CT angio LE RT w inc wo if don CLINICAL HISTORY: preop TECHNIQUE: TECHNIQUE: Multidetector row helical CT of the abdomen, pelvis and bilateral lower extremi ties down through the feet was performed, following intravenous administration of iodinated contrast. No oral contrast was administered. Automated dose lowering techniques and/or adjustment according to patient size were utilized for this exam. Coronal and sagittal reformations were obtained. MIP and 3 D volume rendered reconstructions were obtained. Comparison: None available at the time of this dictation. FINDINGS: Visualized portion of the abdomen is unremarkable. A right renal transplant is seen. The right common iliac artery is patent. The right internal iliac artery is patent. The right exter nal iliac artery is patent. The right common femoral artery is patent. The right deep femoral arter y is patent. The right superficial femoral artery is patent. The right popliteal artery is patent. Three-vessel runoff is identified in the right lower extremity. The right anterior tibial is patent. The posterior tibial artery is patent. The right peroneal artery is patent. three-vessel runoff i s identified down to the level of the right foot. Atherosclerotic disease is seen throughout the lowe r extremity arteries. Soft tissue swelling and a retrocalcaneal ulcer is seen with locules of gas extending to the cortical surface of the posterior calcaneus. There is questionable cortical erosion along the inferior cortex . IMPRESSION: 1. Diffuse atherosclerotic disease without evidence of occlusion. 2. Retrocalcaneal ulcer is seen with locules of gas extending to the cortical surface of the posteri or calcaneus. There is questionable cortical erosion along the inferior cortex. If there is concern f or osteomyelitis, MRI can be performed. ACT 112: Negative or not required by law. Electronically signed by: Ferny Goodwin M.D. 12/17/2021 10:06 AM
[2021-12-17] MEDS: ASPIRIN 81 MG ECTAB PO SCH (10:24)
[2021-12-17] MEDS: ROSUVASTATIN CALCIUM 10 MG TAB PO SCH (10:24)
[2021-12-17] MEDS: FLUTICASONE PROPIONATE NA SPR 16 GM BTL SCH ×2 (10:25→21:53)
[2021-12-17] MEDS: dilTIAZem HCL 240 MG CAPCR PO SCH (10:25)
[2021-12-17] MEDS: INSULIN GLARGINE SOLOSTAR 100 UNITS/ML 3 ML PEN SC SCH ×2 (10:26→21:52)
--- NOTE | 2021-12-17 13:46 | Consultation ---
Date of Consultation December 17, 2021 Assessment & Plan (1) Ulcer of right foot due to type 2 diabetes mellitus: This point patient has had a CT angiogram of the lower extremity which shows no evidence of obstruction or severe stenosis of any of the arteries of the lower extremity. There appears to be no significant flow restriction of the flow to the lower extremity. No intervention is required at this point. Please call us if needed. Thank you very much for letting us participate in the care of this patient. History of Present Illness Reason for Consultation: Nonhealing ulcer right foot Attending Physician: Fox Bentley MD History of Present Illness This is a 55-year-old male who has been treated for a ulceration of the right foot in the wound care center. He claims the wound was worsening over the last week.He was told to come to the emergency room due to the wound being foul- smelling.He does have a history of coronary artery disease status post stent placement, hypertension, multiple closed fractures of the cervical vertebra vertebral bodies, peripheral neuropathy.He does have a smoking history and a history of a kidney transplant He denies any symptoms of claudication or rest pain Allergies Allergy/AdvReac Type Severity Reaction Status Date / Time ondansetron Allergy Intermediate confusion Unverified 12/16/21 19:21 bee venom protein (honey bee) Allergy Unknown SHORTNESS Verified 12/16/21 19:21 OF BREATH Home Medications Medication Instructions Recorded Confirmed Type amitriptyline 25 mg tablet 25 mg PO HS 09/11/19 12/16/21 History aspirin 81 mg tablet,delayed 81 mg PO QAM 09/11/19 12/16/21 History release (Aspirin Low Dose) epinephrine 0.3 mg/0.3 mL 0.3 mg SUBCUT UD PRN 09/11/19 12/16/21 History injection, auto-injector (EpiPen) insulin glargine 100 unit/mL (3 40 unit SUBCUT BID 09/11/19 12/16/21 History mL) subcutaneous pen (Basaglar KwikPen U-100 Insulin) insulin lispro 100 unit/mL 22 unit SUBCUT AC MDD 100 units 09/11/19 12/16/21 History subcutaneous pen (Humalog KwikPen per day (U-100) Insulin) rosuvastatin 20 mg tablet (Crestor) 10 mg PO QAM 09/11/19 12/16/21 History tamsulosin 0.4 mg capsule (Flomax) 0.4 mg PO HS 09/11/19 12/16/21 History diltiazem HCl 240 mg 240 mg PO QAM 05/29/20 12/16/21 History capsule,extended release 24 hr belatacept 250 mg intravenous 250 mg IV MONTHLY #0 05/30/20 12/16/21 History solution mycophenolate sodium 180 mg 360 mg PO BID 05/30/20 12/16/21 History tablet,delayed release pregabalin 150 mg capsule 150 mg PO PM 05/30/20 12/16/21 History acetaminophen 325 mg tablet 650 mg PO QID PRN 11/19/21 12/16/21 History (Tylenol) fluticasone propionate 50 1 spray NA BID 30 Days #1 g 11/21/21 12/16/21 Rx mcg/actuation nasal spray,suspension collagenase clostridium histo. 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 He does have pulse the left foot, I cannot appreciate pulses in the right foot however he there is edema present. Gastrointestinal (Abdomen): Inspection/Auscultation: abdomen normal to inspection; abdomen not distended Percussion/Palpation: abdomen soft Musculoskeletal: no cyanosis or clubbing, extremities motor strength 5/5 Skin: There is a malodorous ulceration present in the right foot. Neurologic: CN's II-XI intact bilaterally and moves all extremities Results & Data ([facility]) Vital Signs (Past 12 Hours) Vital Signs Temp Pulse Resp BP Pulse Ox 12/17/21 08:53 36.7 C 81 12 125/75 98 12/17/21 04:18 38.3 C H 95 H 16 105/62 96 12/17/21 03:00 86 18 139/84 98 12/17/21 02:00 85 20 134/72 97
--- NOTE | 2021-12-17 14:19 | Magnetic Resonance Report ---
MR ankle RT wo/w con CLINICAL HISTORY: diabetic non healing foot infection. abscess/osteo TECHNIQUE: Multisequence, multiplanar MR images of the right ankle were obtained without contrast.. COMPARISON: Comparison is made to MRI ankle 11/20/2021 FINDINGS: Extensive bony edema is seen in the calcaneus. Redemonstration of a split tear of the peroneus brevis . A large heel ulcer is seen, markedly progressed from prior exam. There is diffuse soft tissue swell ing and enhancement compatible with some lines. IMPRESSION: 1. Interval development of a large heel ulcer. There is edema and enhancement of the calcaneus pb tible with osteomyelitis. No drainable fluid collection is seen. 2. Split tear peroneus brevis is again seen. ACT 112: Negative or not required by law. Electronically signed by: Ferny Goodwin M.D. 12/17/2021 2:18 PM
--- NOTE | 2021-12-17 15:52 | Hospitalist Progress Note ---
Date of Service December 17, 2021 Assessment & Plan (1) Ulcer of right foot due to type 2 diabetes mellitus: (2) Osteomyelitis: Plan: ASSESSMENT AND PLAN: This is a 55-year-old male who presents with nonhealing diabetic foot ulcer. 1. 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 Ankle MRI: 1. Interval development of a large heel ulcer. There is edema and enhancement of the calcaneus compatible with osteomyelitis. No drainable fluid collection is seen. 2. Split tear peroneus brevis is again seen. CT Angio Right Lower Extremity: 1. Diffuse atherosclerotic disease without evidence of occlusion. 2. Retrocalcaneal ulcer is seen with locules of gas extending to the cortical surface of the posterior calcaneus. There is questionable cortical erosion along the inferior cortex. If there is concern for osteomyelitis, MRI can be performed. Blood cultures: pending Wound culture: Gram-negative bacilli Continue IV Zosyn plus clindamycin Discussed with [facility] kidney transplant surgeon De-recommend to hold mycophenolate for now, may be held for up to 2 weeks CellCept infusion also being held at this time Awaiting further recommendations by retail warehouse associate Dr. Donaldson, appreciate the recommendations 2. History of diabetes: Continue Lantus and sliding scale 3. Status post renal transplant: On mycophenolate 360 mg p.o. b.i.d. and on belatacept 250 mg IV monthly, next due on end of this month. Follow up with transplant center. If needed, will discuss with transplant center about holding anti rejection meds. -- Discussed with [facility] kidney transplant surgeon De- recommend to hold mycophenolate for now, may be held for up to 2 weeks 4. History of coronary artery disease, status post stent: On aspirin and statin, on diltiazem. Currently stable. 5. History of severe sleep apnea: On CPAP at bedtime. 6. History of hypertension: Continue with diltiazem. 7. Hyperlipidemia: Continue statin. 8. History of chronic cough: Says it is since the cervical vertebral fracture and also has some difficulty swallowing once in a while. --Speech therapy evaluation 9. Deep venous thrombosis prophylaxis: --SCDs for now Lovenox or heparin once okay with retail warehouse associate and no procedures continue plan of care discussed with patient and his at the bedside in detail and at length all questions answered They are understanding, agreeable, comfortable with the plan of care Admission and Anticipated Discharge Date Admission Date: December 16, 2021 Results & Data Results & Data ([facility]) Vital Signs (Past 12 Hours) Vital Signs Temp Pulse Resp BP Pulse Ox 12/17/21 15:28 37.6 C H 84 16 134/70 96 12/17/21 08:53 36.7 C 81 12 125/75 98 12/17/21 04:18 38.3 C H 95 H 16 105/62 96
[2021-12-17] MEDS ORDERED: Nursing to Pharmacy Communication SCH (17:45)
--- NOTE | 2021-12-17 20:27 | Orthopedic Progress Note ---
Date of Service December 17, 2021 Assessment & Plan (1) Ulcer of right foot due to type 2 diabetes mellitus: Plan: Patient seen, evaluated, and treated. Reviewed (+) OM. Patient will require OR debridement. Discussed with OR today, add on case for Tuesday12/17/21 tentative start 7pm. Case will consist of partial calcaneal ostectomy with delayed primary closure. Bone cultures will be taken as well as clear margin for pathology. Off loading is critical part of this Patient's management. Dispensed off loading boot at today's visit. Dressing changed. Plan of care was discussed with Patient and . All questions answered. Thank you for allowing me to participate in the care of this Patient. I will continue to follow while in house. (2) Diabetic foot infection: Plan: Wound cultures taken 12/16/21 show growth,.. awaiting sensitivities. Admission and Anticipated Discharge Date Admission Date: December 16, 2021 Subjective Patient seen at bedside in no acute distress. Patient has no complaints. He is in no off loading device for Right heel wound. Patient's is present. Physical Exam Physical Exam: Focused Exam: Wound location: Right heel ulcer Wound base color and depth: Full thickness wound probes to bone Wound size (cm): roughly 7cm x 5cm x 1 cm Odor: + malodor Drainage: moderate serous Undermining: mild circumferential Borders: necrotic Constitutional: + ill appearing Eyes: PERRL, conjunctivae normal, anicteric sclerae ENMT: external ear and nose normal, oropharynx normal Neck: trachea midline, no thyromegaly Respiratory: normal respiratory effort, lungs clear to auscultation Cardiovascular: Rate/Rhythm: regular rate and regular rhythm Musculoskeletal: Head/Neck/Chest: normocephalic and + abnormal inspection of chest wall Neurologic: + abnormal touch/pain/proprioception and no focal motor deficits Psychiatric: A+Ox3, euthymic affect Results & Data ([facility]) Vital Signs (Past 12 Hours) Vital Signs Temp Pulse Resp BP Pulse Ox 12/17/21 15:28 37.6 C H 84 16 134/70 96 12/17/21 08:53 36.7 C 81 12 125/75 98 Diagnostic Findings LE CTA: MPRESSION: 1. Diffuse atherosclerotic disease without evidence of occlusion. 2. Retrocalcaneal ulcer is seen with locules of gas extending to the cortical surface of the posterior calcaneus. There is questionable cortical erosion along the inferior cortex. If there is concern for osteomyelitis, MRI can be performed. MRI: IMPRESSION: 1. Interval development of a large heel ulcer. There is edema and enhancement of the calcaneus compatible with osteomyelitis. No drainable fluid collection is seen. 2. Split tear peroneus brevis is again seen. Source: Foot,Left OV Order: Ordered: Deep Wnd Cul/Sm Procedure Result Verified Site Gram Stain Final 12/16/21-2249 Gram Stain Result No WBCs Seen Rare Gram Positive Cocci Rare Gram Negative Bacilli Deep Wound Culture Preliminary 12/17/21-3610 Organism 1 Gram negative bacilli Quantity Moderate Sens Sensitivities to Follow
[2021-12-17] MEDS ORDERED: INSULIN ASPART PER UNIT SC SCH (21:00)
[2021-12-17] MEDS: PREGABALIN 150 MG CAP PO SCH (21:47)
[2021-12-17] MEDS: TAMSULOSIN HCL 0.4 MG CAP PO SCH (21:51)
[2021-12-17] MEDS: AMITRIPTYLINE HCL 25 MG TAB PO SCH (21:51)
[2021-12-18] MEDS ORDERED: Nursing to Pharmacy Communication SCH ×2 (05:15→16:15)
[2021-12-18] MEDS: CLINDAMYCIN 600 MG in DEXTROSE 5% 50 ML IV SCH ×3 (05:43→21:07)
[2021-12-18] MEDS: PIPERACILLIN/TAZOBACTAM 3.375 GM in DEXTROSE 5% 100 ML IV SCH ×3 (05:43→21:06)
[2021-12-18] MEDS: INSULIN ASPART PER UNIT SC SCH ×4 (05:59→21:20)
[2021-12-18 06:04] LABS: Est GFR (African American) 86.5 ml/min; Est GFR (Non-African American) 74.6 ml/min
[2021-12-18] MEDS: INSULIN GLARGINE SOLOSTAR 100 UNITS/ML 3 ML PEN SC SCH ×2 (09:17→21:21)
[2021-12-18] MEDS: ASPIRIN 81 MG ECTAB PO SCH (09:24)
[2021-12-18] MEDS: FLUTICASONE PROPIONATE NA SPR 16 GM BTL SCH ×2 (09:25→21:04)
[2021-12-18] MEDS: ROSUVASTATIN CALCIUM 10 MG TAB PO SCH (09:25)
[2021-12-18] MEDS: dilTIAZem HCL 240 MG CAPCR PO SCH (09:25)
[2021-12-18] MEDS ORDERED: HEPARIN 100 UNIT/ML 5ML FLUSH ONE ×2 (15:50→17:32)
--- NOTE | 2021-12-18 16:26 | Hospitalist Progress Note ---
Date of Service December 18, 2021 Assessment & Plan (1) Ulcer of right foot due to type 2 diabetes mellitus: (2) Osteomyelitis: Plan: ASSESSMENT AND PLAN: This is a 55-year-old male who presents with nonhealing diabetic foot ulcer. 1. 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 Ankle MRI: 1. Interval development of a large heel ulcer. There is edema and enhancement of the calcaneus compatible with osteomyelitis. No drainable fluid collection is seen. 2. Split tear peroneus brevis is again seen. CT Angio Right Lower Extremity: 1. Diffuse atherosclerotic disease without evidence of occlusion. 2. Retrocalcaneal ulcer is seen with locules of gas extending to the cortical surface of the posterior calcaneus. There is questionable cortical erosion along the inferior cortex. If there is concern for osteomyelitis, MRI can be performed. Wound culture: E coli, and Grp Beta Strep Blood cultures: pending ID consulted- appreciate recommendations Continue IV Zosyn Change Clindamycin to Daptomycin (pending CK) 12/17: Discussed with [facility] kidney host coordinator De- recommend to hold mycophenolate for now, may be held for up to 2 weeks CellCept infusion also being held at this time Per Dr. Donaldson, plan for OR tomorrow 2. History of diabetes: Continue Lantus and sliding scale 3. Status post renal transplant: On mycophenolate 360 mg p.o. b.i.d. and on belatacept 250 mg IV monthly, next due on end of this month. Follow up with transplant center. If needed, will discuss with transplant center about holding anti rejection meds. -- Discussed with [facility] kidney host coordinator De- recommend to hold mycophenolate for now, may be held for up to 2 weeks 4. History of coronary artery disease, status post stent: On aspirin and statin, on diltiazem. Currently stable. 5. History of severe sleep apnea: On CPAP at bedtime. 6. History of hypertension: Continue with diltiazem. 7. Hyperlipidemia: Continue statin. - may need to hold statin if patient being transitioned to Daptomycin 8. History of chronic cough: Says it is since the cervical vertebral fracture and also has some difficulty swallowing once in a while. --Speech therapy evaluation 9. Deep venous thrombosis prophylaxis: --SCDs for now in light of procedure tomorrow patient and his upset regarding postponement of surgery and for not being informed regarding change in OR schedule requested Dr. Donaldson to speak patient and his Dr. Donaldson spoke with patient and his over the phone I also spoke with patient and his in the room regarding above plan of care discussed with patient and his at the bedside in detail and at length all questions answered They are understanding, agreeable, comfortable with the plan of care Admission and Anticipated Discharge Date Admission Date: December 16, 2021 Subjective ff up for R heel osteomyelitis, etc seen resting in bed, comfortable states he feels ok overall no fever/chills, nausea/vomiting no chest pain, dyspnea, palpitations, dizziness no other new symptoms Review of Systems Review of Systems: all noted and negative except for above Physical Exam Physical Exam: General- oriented x 3, not in distress, speaks in sentences with no effort or accessory muscle use Eyes- anicteric Neck- no JVD Lungs- clear BS bilaterally, no rales/wheezes Heart- normal rate, regular rhythm; no murmurs Abdomen- normal bowel sounds, nondistended, soft, nontender Extremities- no pretibial edema, no calf tenderness r foot: (+) boot in place Large necrotic ulcer in the right heel, surrounding by moderate edema and erythema Lower leg with no erythema/warmth/edema/tenderness Neuro- alert, oriented x 3; no gross focal neurologic deficits Skin- warm & dry Results & Data Results & Data ([facility]) Vital Signs (Past 12 Hours) Vital Signs Temp Pulse Resp BP Pulse Ox 12/18/21 07:29 36.8 C 82 17 128/70 98 all noted and reviewed including below
[2021-12-18 16:38] LABS: BUN Creatinine Ratio 11.1 (10-20); Calcium 9.2 mg/dl (8.5-10.1); Creatinine Clr Calc Pharmacy 101.9 ml/min; Est GFR (African American) 88.5 ml/min; Est GFR (Non-African American) 76.3 ml/min; Potassium 4.1 mmol/L (3.5-5.1)
[2021-12-18] MEDS: DAPTOmycin 525 MG in SYRINGE 0 ML IV SCH (17:33)
[2021-12-18] MEDS: AMITRIPTYLINE HCL 25 MG TAB PO SCH (21:04)
[2021-12-18] MEDS: TAMSULOSIN HCL 0.4 MG CAP PO SCH (21:06)
[2021-12-18] MEDS: PREGABALIN 150 MG CAP PO SCH (21:20)
[2021-12-18] MEDS: ACETAMINOPHEN 325 MG TAB PO PRN (23:30)
[2021-12-19] MEDS: PIPERACILLIN/TAZOBACTAM 3.375 GM in DEXTROSE 5% 100 ML IV SCH ×3 (05:50→20:36)
[2021-12-19] MEDS ORDERED: INSULIN ASPART PER UNIT SC SCH (06:00)
[2021-12-19] MEDS: CLINDAMYCIN 600 MG in DEXTROSE 5% 50 ML IV SCH (06:06)
[2021-12-19] MEDS ORDERED: PROPOFOL IV EMULSION 10 MG/ML 20 ML VIAL IV ONE ×2 (06:44)
[2021-12-19] MEDS ORDERED: MIDAZOLAM HCL 1 MG/ML 2ML VIAL ONE (06:46)
[2021-12-19] MEDS ORDERED: fentaNYL citrate 100 MCG/2 ML VIAL ONE (06:46)
[2021-12-19] MEDS ORDERED: VANCOMYCIN HCL 1000MG/20ML VIAL ONE (07:12)
[2021-12-19] MEDS ORDERED: ATROPINE SULFATE 0.1 MG/ML 10ML SYR IV PRN (07:39)
[2021-12-19] MEDS ORDERED: fentaNYL citrate 100 MCG/2 ML VIAL IV PRN (07:39)
[2021-12-19] MEDS ORDERED: ePHEDrine sulfate 50 MG/ML AMP IV PRN (07:39)
[2021-12-19] MEDS ORDERED: HYDROmorphone INJ 2 MG/ML SYR/VIAL IV PRN (07:39)
[2021-12-19] MEDS ORDERED: PROMETHAZINE HCL 6.25 MG in SODIUM CHLORIDE 0.9% 50 ML IV PRN (07:39)
--- NOTE | 2021-12-19 07:39 | Anesthesiology Consultation ---
Date of Service December 19, 2021 Assessment & Plan ASA ASA3 Proposed Anesthesia Anesthesia Type: MAC Risk / Benefits Reviewed With: PT / POA / Parent / Guardian, Accepts Plan and Informed Consent Obtained History Surgery Operation Date: 12/18/21 10:20 Proposed Procedures p Right Calcaneal Osteotomy - Vince Donaldson DPM, Operation Date: 12/19/21 07:30 Proposed Procedures p Right Calcaneal Osteotomy - Vince Donaldson DPM, MS Height/Weight Height: 6 ft 3 in Weight: 109 kg Allergies Allergy/AdvReac Type Severity Reaction Status Date / Time ondansetron Allergy Intermediate confusion Unverified 12/16/21 19:21 bee venom protein (honey bee) Allergy Unknown SHORTNESS Verified 12/16/21 19:21 OF BREATH Medications Home Medications Medication Instructions Recorded Confirmed Last Taken amitriptyline 25 mg tablet 25 mg PO HS 09/11/19 12/16/21 12/15/21 aspirin 81 mg tablet,delayed 81 mg PO QAM 09/11/19 12/16/21 12/16/21 release (Aspirin Low Dose) epinephrine 0.3 mg/0.3 mL 0.3 mg SUBCUT UD PRN 09/11/19 12/16/21 Unknown injection, auto-injector (EpiPen) insulin glargine 100 unit/mL (3 40 unit SUBCUT BID 09/11/19 12/16/21 12/16/21 mL) subcutaneous pen (Basaglar am KwikPen U-100 Insulin) insulin lispro 100 unit/mL 22 unit SUBCUT AC MDD 100 units 09/11/19 12/16/21 12/16/21 subcutaneous pen (Humalog KwikPen per day x3 (U-100) Insulin) rosuvastatin 20 mg tablet (Crestor) 10 mg PO QAM 09/11/19 12/16/21 12/15/21 tamsulosin 0.4 mg capsule (Flomax) 0.4 mg PO HS 09/11/19 12/16/21 12/15/21 diltiazem HCl 240 mg 240 mg PO QAM 05/29/20 12/16/21 12/16/21 capsule,extended release 24 hr belatacept 250 mg intravenous 250 mg IV MONTHLY #0 05/30/20 12/16/21 10/20/21 solution mycophenolate sodium 180 mg 360 mg PO BID 05/30/20 12/16/21 12/16/21 tablet,delayed release am pregabalin 150 mg capsule 150 mg PO PM 05/30/20 12/16/21 12/15/21 acetaminophen 325 mg tablet 650 mg PO QID PRN 11/19/21 12/16/21 11/19/21 12:00 (Tylenol) 650 mg fluticasone propionate 50 1 spray NA BID 30 Days #1 g 11/21/21 12/16/21 12/16/21 mcg/actuation nasal am spray,suspension collagenase clostridium histo. 250 1 applic TOPICAL UD 12/16/21 12/16/21 Unknown unit/gram topical ointment (Santyl) sildenafil 25 mg tablet 25 mg PO UD PRN 12/16/21 12/16/21 Unknown Active Medications Generic Name Dose Route Start Last Admin Trade Name Freq PRN Reason Stop Dose Admin Acetaminophen 650 mg 12/17/21 04:17 12/18/21 23:30 Acetaminophen 325 Mg Tab PO 01/16/22 04:16 650 mg Q4H PRN Administration pain/fever Amitriptyline HCl 25 mg 12/17/21 21:00 12/18/21 21:04 Amitriptyline Hcl 25 Mg Tab PO 01/16/22 20:59 25 mg HS JOSE Administration Aspirin 81 mg 12/17/21 09:00 12/18/21 09:24 Aspirin 81 Mg Ectab PO 01/16/22 08:59 Not Given QAM JOSE Diltiazem HCl 240 mg 12/17/21 09:00 12/18/21 09:25 Diltiazem Hcl 240 Mg Capcr PO 01/16/22 08:59 Not Given QAM JOSE Fluticasone Propionate 1 sprays 12/17/21 09:00 12/18/21 21:04 Fluticasone Propionate Na Spr 16 Gm Btl NA 01/16/22 08:59 1 sprays BID JOSE Administration Clindamycin Phosphate 600 mg/ 54 mls @ 100 mls/hr 12/17/21 06:00 12/19/21 06:45 Dextrose IV 12/24/21 05:59 Infused Q8H JOSE Infusion Piperacillin Sod/Tazobactam 115 mls @ 30 mls/hr 12/17/21 05:00 12/19/21 05:50 Sod 3.375 gm/ Dextrose IV 12/24/21 04:59 30 mls/hr Q8H JOSE Administration Protocol Daptomycin 525 mg/ Syringe 10.5 mls @ 5.25 mls/min 12/18/21 17:15 12/18/21 17:33 IV 01/29/22 17:14 5.25 mls/min DAILY@1700 JOSE Administration Protocol Insulin Aspart 0 units 12/19/21 06:00 12/19/21 06:06 Insulin Aspart Per Unit SC 01/18/22 05:59 3 units Q6 JOSE Administration Insulin Glargine 20 units 12/17/21 09:00 12/18/21 21:21 Insulin Glargine Solostar 100 Units/Ml 3 Ml Pen SC 01/16/22 08:59 20 units BID JOSE Administration Mycophenolate Sodium 360 mg 12/17/21 09:00 12/17/21 10:25 Mycophenolate Sodium 180 Mg Tab PO 01/16/22 08:59 360 mg BID JOSE Administration Pregabalin 150 mg 12/17/21 21:00 12/18/21 21:20 Pregabalin 150 Mg Cap PO 01/16/22 20:59 150 mg PM JOSE Administration Rosuvastatin Calcium 10 mg 12/17/21 09:00 12/18/21 09:25 Rosuvastatin Calcium 10 Mg Tab PO 01/16/22 08:59 Not Given QAM JOSE Tamsulosin HCl 0.4 mg 12/17/21 21:00 12/18/21 21:06 Tamsulosin Hcl 0.4 Mg Cap PO 01/16/22 20:59 0.4 mg HS JOSE Administration NPO Date Last Intake of Fluids: 12/18/21 Time Last Intake of Fluids: 21:21 Date Last Intake of Solids: 12/18/21 Time Last Intake of Solids: 21:21 Past Medical History Medical History Diabetes Gastroparesis History of peritoneal dialysis Hypertension Exercise / Class Metabolic Activity II 4-5 Yardwork/Stairs/Walk up hill Past Family History Family History Other Family history non-contributory Past Surgical History Surgical History Hx of kidney transplant September 2017 Prema Albarran Past Anesthesia History No Hx of Anesthesia Complications and No Family Hx of Anesthesia Complications History of PONV No Hx of PONV and No Hx of Motion Sickness Social History Smoking Status: Never smoker Hx Alcohol Use: Yes Alcohol type: other alcohol intake frequency: holidays/special occasions only Hx Substance Use: No substance use type: does not use Review of Systems denies fever/cough/ colds/ chest pain/ SOB/ MATT denies MATT Physical Exam Vital Signs Last Vital Signs Temp 36.3 C L 12/19/21 07:15 Pulse 85 12/19/21 07:15 Resp 18 12/19/21 07:15 BP 105/68 12/19/21 07:15 Pulse Ox 98 12/19/21 07:15 ENMT Mouth: no TMJ abnormality and no dentition abnormality Thyromental Distance: > or= 3.5 Finger Breadths Mallampati Class: II Neck neck extension not limited Respiratory normal respiratory effort; no respiratory distress Auscultation: lungs clear to auscultation bilaterally Cardiovascular Rate/Rhythm: regular rate and regular rhythm Neurologic moves all extremities Psychiatric Orientation: alert and oriented x 3 Testing Laboratory Results 12/17/21 05:23 12/18/21 15:55 PT 12.6 Seconds (9.0-12.0) H 12/16/21 18:37 INR 1.2 (0.9-1.1) H 12/16/21 18:37 APTT 23.8 Seconds (21.0-31.0) 12/16/21 18:37 Hemoglobin A1c 9.0 % (4.5-5.6) H 12/17/21 05:23 12/16/21 21:07 Gram Stain - Final Foot,Left Deep Wound Culture - Preliminary Escherichia coli Group B Beta Strep 12/16/21 18:37 Aerobic Blood Culture - Preliminary Blood No growth in Aerobic bottle after 48 hours. Anaerobic Blood Culture - Preliminary No growth in Anaerobic bottle after 48 hours. 12/16/21 19:46 Aerobic Blood Culture - Preliminary Blood No growth in Aerobic bottle after 48 hours. Anaerobic Blood Culture - Final 12/19/21 12/18/21 05:53 20:54 POC Glucose 226 H 293 H
--- NOTE | 2021-12-19 07:43 | Surgery Consultation ---
Date of Consultation December 19, 2021 Assessment & Plan (1) Ulcer of right foot due to type 2 diabetes mellitus: Patient seen, evaluated, and treated. Reviewed osteomyelitis of calcaneus. Reviewed excision of osteomyelitic bone and excision of wound as well as need for further OR procedures and compliance of post operative care. All questions answered. Consent for procedure obtained. All potential risks, benefits, complications, alternatives, rehab, potential for incomplete relief of symptoms, need for further surgery, DVT, PE, , persistent pain, swelling, scarring, weakness, neurovascular, wound complications and potential for amputations were discussed with patient. Unwanted outcomes such as, but not limited to were reviewed including under correction, overcorrection, return of deformity, infection. All questions were answered. Patient has decided to proceed with procedure as indicated. [facility] has asked case be postponed until morning of 12/19/21 due to staffing. I reviewed this ask with both Patient and . (2) Diabetic foot infection: Wound cultures taken 12/16/21 show e. coli and strep with sensitives noted Continue IV abx therapy for course of 6 weeks as indicated. Patient will require PICC line prior to discharge History of Present Illness Attending Physician: Fox Bentley MD History of Present Illness Patient seen at bedside. Recent MRI shows right calcaneus osteomyelitis. Patient seen for surgical consideration. Allergies Allergy/AdvReac Type Severity Reaction Status Date / Time ondansetron Allergy Intermediate confusion Unverified 12/16/21 19:21 bee venom protein (honey bee) Allergy Unknown SHORTNESS Verified 12/16/21 19:21 OF BREATH Home Medications Medication Instructions Recorded Confirmed Type amitriptyline 25 mg tablet 25 mg PO HS 09/11/19 12/16/21 History aspirin 81 mg tablet,delayed 81 mg PO QAM 09/11/19 12/16/21 History release (Aspirin Low Dose) epinephrine 0.3 mg/0.3 mL 0.3 mg SUBCUT UD PRN 09/11/19 12/16/21 History injection, auto-injector (EpiPen) insulin glargine 100 unit/mL (3 40 unit SUBCUT BID 09/11/19 12/16/21 History mL) subcutaneous pen (Basaglar KwikPen U-100 Insulin) insulin lispro 100 unit/mL 22 unit SUBCUT AC MDD 100 units 09/11/19 12/16/21 History subcutaneous pen (Humalog KwikPen per day (U-100) Insulin) rosuvastatin 20 mg tablet (Crestor) 10 mg PO QAM 09/11/19 12/16/21 History tamsulosin 0.4 mg capsule (Flomax) 0.4 mg PO HS 09/11/19 12/16/21 History diltiazem HCl 240 mg 240 mg PO QAM 05/29/20 12/16/21 History capsule,extended release 24 hr belatacept 250 mg intravenous 250 mg IV MONTHLY #0 05/30/20 12/16/21 History solution mycophenolate sodium 180 mg 360 mg PO BID 05/30/20 12/16/21 History tablet,delayed release pregabalin 150 mg capsule 150 mg PO PM 05/30/20 12/16/21 History acetaminophen 325 mg tablet 650 mg PO QID PRN 11/19/21 12/16/21 History (Tylenol) fluticasone propionate 50 1 spray NA BID 30 Days #1 g 11/21/21 12/16/21 Rx mcg/actuation nasal spray,suspension collagenase clostridium histo. 250 1 applic TOPICAL UD 12/16/21 12/16/21 History unit/gram topical ointment (Santyl) sildenafil 25 mg tablet 25 mg PO UD PRN 12/16/21 12/16/21 History Patient History Medical History Diabetes Gastroparesis History of peritoneal dialysis Hypertension Surgical History Hx of kidney transplant September 2017 Pre[facility] Albarran Family History Other Family history non-contributory Social History Smoking Status: Never smoker Hx Alcohol Use: Yes Alcohol type: other Hx Substance Use: No Preferred Language: Tongan Communication Ability: Effective Ekg Monitor Tech Required: No Beliefs That Will Affect Care: None marital status: Current Living Situation: Family Other Information That Helps Us Care for You: No Feels Safe at Home: Yes Safety Concerns: Feels Safe At This Time Assistive Devices: Special Shoe and Walker Review of Systems Review of Systems: all noted and negative except for above Physical Exam Constitutional: + ill appearing Eyes: PERRL, conjunctivae normal, anicteric sclerae ENMT: external ear and nose normal, oropharynx normal Neck: trachea midline, no thyromegaly Respiratory: normal respiratory effort, lungs clear to auscultation Cardiovascular: Rate/Rhythm: regular rate and regular rhythm Musculoskeletal: Head/Neck/Chest: normocephalic and + abnormal inspection of chest wall Neurologic: + abnormal touch/pain/proprioception and no focal motor deficits Psychiatric: A+Ox3, euthymic affect Results & Data ([facility]) Vital Signs (Past 12 Hours) Vital Signs Temp Pulse Pulse Resp BP Pulse Ox 12/19/21 07:15 36.3 C L 85 18 105/68 98 12/19/21 06:14 36.6 C 12/19/21 00:13 37.3 C 12/18/21 22:43 38.0 C H 91 H 18 149/82 H 96 Diagnostic Findings CLINICAL HISTORY: diabetic non healing foot infection. abscess/osteo TECHNIQUE: Multisequence, multiplanar MR images of the right ankle were obtained without contrast.. COMPARISON: Comparison is made to MRI ankle 11/20/2021 FINDINGS: Extensive bony edema is seen in the calcaneus. Redemonstration of a split tear of the peroneus brevis. A large heel ulcer is seen, markedly progressed from prior exam. There is diffuse soft tissue swelling and enhancement compatible with some lines. IMPRESSION: 1. Interval development of a large heel ulcer. There is edema and enhancement of the calcaneus compatible with osteomyelitis. No drainable fluid collection is seen. 2. Split tear peroneus brevis is again seen.
--- NOTE | 2021-12-19 09:01 | Operative Report ---
Post Operative Report Pre & Post Diagnosis Operation Date: 12/18/21 10:20 <No data on this case meets the specified criteria> Operation Date: 12/19/21 07:30 Pre-Op Diagnosis: Ulcer of right foot due to type 2 diabetes mellitus; Osteomyelitis of calcaneus Post-Op Diagnosis: Ulcer of right foot due to type 2 diabetes mellitus; Osteomyelitis of calcaneus I identified the patient and participated in the time-out.: Yes Procedure Operation Date: 12/18/21 10:20 <No data on this case meets the specified criteria> Operation Date: 12/19/21 07:30 Actual Procedures p Right Calcaneal Ostectomy - Vince Donaldson DPM, MS Surgeon Vince Donaldson DPM, MS Cia Agent None Estimated Blood Loss 0 Findings Consistent with Post-Op Diagnosis Specimens 1.) Right calcaneus to Microbiology for culture and sensatitives 2.) Right calcaneus to Pathology 3.) Right calcaneus clear margin to Pathology Drains None Anesthesia Type MAC Regional Complications None Disposition Accompanied Patient To Recovery: Yes Indications Diabetic foot wound, osteomyelitis right calcaneus Description of Procedure History of present illness: Patient is a 55-year-old male with Right foot diabetic non healing ulcer. Recent MRI changes were noted to right calcaneus consistent with osteomyelitis. Patient requires calcaneal osectomy. I did discuss need for delayed primary closure due to current infection. Procedure in detail was discussed as well as postoperative care. All questions were answered. All potential risks, benefits, complications, alternatives, rehab, potential for incomplete relief of symptoms, need for further surgery, DVT, PE, , persistent pain, swelling, scarring, weakness, neurovascular, wound complications and potential for amputations were discussed with patient. Unwanted outcomes such as, but not limited to were reviewed including under correction, overcorrection, return of deformity, infection. All questions were answered. Patient has decided to proceed with procedure as indicated. Preoperative diagnosis: Right foot non healing diabetic heel ulcers, Right calcaneus osteomyelitis Postoperative diagnosis: Same Procedure in detail: 1.) Excision of Right heel ulcer 2.) Calcaneal osectomy Right 3.) Delayed primary closure Surgeon: Dr. Donaldson Cia Agent: none Anesthesia: local with monitored anesthesia care Hemostasis: pneumatic right thigh tourniquet Estimated blood loss: none Specimens: 1.) Bone Calcaneus Right Microbiology 2.) Bone Calcaneus Right Pathology 3.) Bone Calcaneus RIght Clear margin Pathlogy Procedure in detail: Under mild sedation the patient was brought in the operating room placed on the operating table in prone position. A pneumatic right thigh tourniquet was then placed about the patient's right thigh. Following IV sedation local anesthesia the foot and ankle were prepped scrubbed and draped in the usual aseptic manner. An Esmarch bandage was utilized to exsanguinate the patient's right ankle and the pneumatic thigh tourniquet was then inflated. Attention was then directed to retro calcanel heel diabetic foot non healing ulcer. The wound measures 7cm x 5 cmx 1 cm. An incision was created utilizing a sharp, sterile, #15 blade. The incision which was deepened through subcutaneous tissue using sharp blunt dissection. Care was taken to identify and retract all vital neurovascular structures. All bleeders were ligated and cauterized necessary. At this time the wound was excised in toto down to necrotic bone. At this time a small piece of necrotic bone was removed and labeled and placed on the back table for specimen sent to Microbiology for culture and sensativities. Next, attention was then directed to the retro calcaneal heel where utilizing an ossilating bone saw the partial calcaneal osectomy was undertaken. The partial necrotic bone was then placed on the back table. It was labeled and sent to Pathology. At this time 3 Liters of lactate ringer were utilized to flush the wound. Upon completion gloves and instrumentation was then changed. A second pass once completed with the ossilating bone saw and this was placed on the back table labeled clear margin and sent to pathology. Copious amounts of sterile normal saline were utilized to flush the excision site. Vancomycin infused acrilic beads were placed in wound. The deep st ructures were partially reapproximated utilizing 3-0 nylon. The excision was left open and dressed with sterile compressive dressing consisting of 4 x 4's Esthela Kerlix ABD. The pneumatic thigh tourniquet was deflated and a prompt hyperemic response was noted to all digits of the right foot. The Patient tolerated procedure and anesthesia well he was transferred to recovery room vital signs stable and vascular status intact all toes of the right foot following. Following a period of postoperative monitoring the patient will be discharged back to floor on the following written and postoperative oral instructions. Keep dressing clean dry and intact, avoid ambulation, ice and elevate right ankle and foot contact Dr. Donaldson for all postoperative care if any problems arise . Plan is to return to OR for definitive closure. I attest to the content of the Intraoperative Record and any orders documented therein. Any exceptions are noted below.
[2021-12-19] MEDS ORDERED: ACETAMINOPHEN 325 MG TAB PO PRN (09:58)
[2021-12-19] MEDS ORDERED: COLLAGENASE OINT 30 GM TUBE TOP SCH (09:58)
[2021-12-19 09:59] LABS: Creatinine Clr Calc Pharmacy 92.5 ml/min; Est GFR (African American) 78.7 ml/min; Est GFR (Non-African American) 67.9 ml/min
--- NOTE | 2021-12-19 10:06 | Anesthesiology Progress Note ---
Date of Service December 19, 2021 Anesthesia Post Procedure Vital Signs Vital Signs: Temp Pulse Pulse Pulse Resp BP Pulse Ox 12/19/21 09:15 73 21 144/77 H 99 12/19/21 08:58 36.1 C L 75 75 H 151/76 H 99 12/19/21 07:15 36.3 C L 85 18 105/68 98 12/19/21 06:14 36.6 C 12/19/21 00:13 37.3 C 12/18/21 22:43 38.0 C H 91 H 18 149/82 H 96 12/18/21 16:34 37.4 C 86 16 114/70 98 Pain Intensity Right Heel: Pain Intensity: 0 Transfer of Care Handoff Completed per policy Notes Mental Status: alert / awake / arousable and participated in evaluation Patient Amnestic to Procedure: Yes Nausea / Vomiting: adequately controlled Pain: adequately controlled Airway Patency, RR, SpO2: stable & adequate BP & HR: stable & adequate Hydration State: stable & adequate Anesthetic Complications: no major complications apparent and Pt Satisfied with anesthetic care
[2021-12-19] MEDS ORDERED: NON-FORMULARY MEDICATION (Insulin Lispro [Humalog Kwikpen Insulin] 100 unit/mL insulin pen SQ SCH (11:30)
[2021-12-19] MEDS: ASPIRIN 81 MG ECTAB PO SCH (11:57)
[2021-12-19] MEDS: dilTIAZem HCL 240 MG CAPCR PO SCH (11:57)
[2021-12-19] MEDS: FLUTICASONE PROPIONATE NA SPR 16 GM BTL SCH ×2 (11:57→20:35)
[2021-12-19] MEDS: INSULIN ASPART PER UNIT SC SCH ×4 (13:27→23:45)
[2021-12-19] MEDS: INSULIN GLARGINE SOLOSTAR 100 UNITS/ML 3 ML PEN SC SCH (13:28)
[2021-12-19] MEDS: ADVANCED PROBIOTIC 1250 MG CAPSULE PO SCH (13:29)
[2021-12-19] MEDS ORDERED: PHARMACY GLYCEMIC MGMT CONSULT PRN (16:55)
--- NOTE | 2021-12-19 16:57 | Hospitalist Progress Note ---
Date of Service December 19, 2021 Assessment & Plan (1) Ulcer of right foot due to type 2 diabetes mellitus: (2) Osteomyelitis: Plan: ASSESSMENT AND PLAN: This is a 55-year-old male who presents with nonhealing diabetic foot ulcer. 1. 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 Ankle MRI: 1. Interval development of a large heel ulcer. There is edema and enhancement of the calcaneus compatible with osteomyelitis. No drainable fluid collection is seen. 2. Split tear peroneus brevis is again seen. CT Angio Right Lower Extremity: 1. Diffuse atherosclerotic disease without evidence of occlusion. 2. Retrocalcaneal ulcer is seen with locules of gas extending to the cortical surface of the posterior calcaneus. There is questionable cortical erosion along the inferior cortex. If there is concern for osteomyelitis, MRI can be performed. Wound culture: E coli, and Grp Beta Strep Blood cultures: negative x 48 hours R foot drainage culture: pending 12/19: Right Calcaneal Ostectomy ID consulted- appreciate recommendations Continue IV Zosyn Changed Clindamycin to Daptomycin 12/17: Discussed with [facility] kidney orthodontic treatment coordinator De- recommend to hold mycophenolate for now, may be held for up to 2 weeks CellCept infusion also being held at this time 2. History of diabetes: Continue Lantus and sliding scale 3. Status post renal transplant: On mycophenolate 360 mg p.o. b.i.d. and on belatacept 250 mg IV monthly, next due on end of this month. Follow up with transplant center. If needed, will discuss with transplant center about holding anti rejection meds. -- Discussed with [facility] kidney orthodontic treatment coordinator De- recommend to hold mycophenolate for now, may be held for up to 2 weeks 4. History of coronary artery disease, status post stent: On aspirin and statin, on diltiazem. Currently stable. 5. History of severe sleep apnea: On CPAP at bedtime. 6. History of hypertension: Continue with diltiazem. add PRN hydralazine 7. Hyperlipidemia: Continue statin. - may need to hold statin if patient being transitioned to Daptomycin 8. History of chronic cough: Says it is since the cervical vertebral fracture and also has some difficulty swallowing once in a while. --Speech therapy evaluation 9. Deep venous thrombosis prophylaxis: --SCDs for now in light of procedure today will discuss with Dr. Donaldson when Lovenox/Heparin can be started plan of care discussed with patient and his at the bedside in detail and at length all questions answered They are understanding, agreeable, comfortable with the plan of care Admission and Anticipated Discharge Date Admission Date: December 16, 2021 Subjective ff up for r heel osteomyelitis, etc seen resting in bed, comfortable s/p R calcaneal osteotomy states he feels fine overall minimal discomfort no chills, nausea/vomiting no chest pain, dyspnea, palpitations, dizziness no other symptoms Review of Systems Review of Systems: all noted and negative except for above Physical Exam Physical Exam: General- oriented x 3, not in distress, speaks in sentences with no effort or accessory muscle use Eyes- anicteric Neck- no JVD Lungs- clear BS bilaterally, no rales/wheezes Heart- normal rate, regular rhythm; no murmurs Abdomen- normal bowel sounds, nondistended, soft, nontender Extremities- no pretibial edema, no calf tenderness R foot: heavy dressing in place with some blood seepage Neuro- alert, oriented x 3; no gross focal neurologic deficits Skin- warm & dry Results & Data Results & Data ([facility]) Vital Signs (Past 12 Hours) Vital Signs Temp Pulse Pulse Pulse Resp BP Pulse Ox 12/19/21 15:38 37.3 C 88 18 174/83 H 98 12/19/21 11:55 36.3 C L 81 16 129/73 98 12/19/21 10:50 37.0 C 73 16 144/81 H 99 12/19/21 10:22 37.2 C 94 H 16 164/92 H 99 12/19/21 10:02 37.0 C 70 18 136/76 99 12/19/21 09:45 73 16 148/73 H 98 12/19/21 09:35 71 18 153/87 H 99 12/19/21 09:25 72 17 138/80 99 12/19/21 09:15 73 21 144/77 H 99 12/19/21 09:05 73 17 144/77 H 99 12/19/21 08:58 36.1 C L 75 75 H 151/76 H 99 12/19/21 07:15 36.3 C L 85 18 105/68 98 12/19/21 06:14 36.6 C all noted and reviewed including below
--- NOTE | 2021-12-19 17:14 | Pharmacy Report ---
Pharmacy Glycemic Short Note 2 - Date of Service December 19, 2021 - Glycemic Short BSG Results (Last 24 hours): 12/18/21 12/19/21 12/19/21 20:54 05:53 10:21 POC Glucose 293 H 226 H 261 H 12/19/21 12/19/21 12:30 12:32 POC Glucose 328 H* 324 H* OUTPATIENT ANTIDIABETIC REGIMEN: * Lantus 40 units SC BID * Novolog 22 units SC TID (up to 120 units per day) * HbA1c: 9% (12/17/21) ASSESSMENT: * NN is a 55 year old male POD 0 s/p right calcaneal ostectomy secondary to diabetic foot ulcer/osteomyelitis * No intraoperative steroids given * Pharmacy consulted for glycemic management this evening due to poorly controlled BSGs so far this admission * BSG at lunchtime of 328 mg/dL - likely related to significant under-dosing of insulin compared to outpatient doses. Will increase Lantus and significantly tighten Novolog to achieve better glycemic control. * Initially attempted to give 60 units of Lantus at time of consult to equal full daily dose of 80 units, but patient refused and is concerned about going low * He is agreeable to 40 units, so will give 40 units and utilize overnight checks at 00,04 to cover any additional needs PLAN FOR INPATIENT GLYCEMIC CONTROL: * Basal insulin * Lantus 20 units SC given with lunch, will give additional 40 units now based on patient comfort * Reassess in AM * Bolus insulin * NovoLog per scale ACHS or Q6hrs while NPO * Goal Range: Low 110 mg/dL - High 140 mg/dL * Correction Factor: 10 mg/dL/unit * Nutritional / Prandial insulin per carb ratio of 1 unit per 4 grams CHO consumed
[2021-12-19] MEDS ORDERED: INSULIN GLARGINE SOLOSTAR 100 UNITS/ML 3 ML PEN SC ONE ×2 (17:15→18:30)
[2021-12-19] MEDS: DAPTOmycin 525 MG in SYRINGE 0 ML IV SCH (17:29)
[2021-12-19] MEDS: AMITRIPTYLINE HCL 25 MG TAB PO SCH (20:35)
[2021-12-19] MEDS: PREGABALIN 150 MG CAP PO SCH (20:35)
[2021-12-19] MEDS: TAMSULOSIN HCL 0.4 MG CAP PO SCH (20:35)
[2021-12-20] MEDS: HEPARIN 100 UNIT/ML 5ML FLUSH FLUSH PRN ×3 (00:23→17:25)
[2021-12-20] MEDS: PIPERACILLIN/TAZOBACTAM 3.375 GM in DEXTROSE 5% 100 ML IV SCH ×3 (03:58→21:08)
[2021-12-20] MEDS: INSULIN ASPART PER UNIT SC SCH ×5 (04:04→21:03)
[2021-12-20 06:32] LABS: Creatinine Clr Calc Pharmacy 99.1 ml/min; Est GFR (African American) 85.6 ml/min; Est GFR (Non-African American) 73.8 ml/min
[2021-12-20 08:06] LABS: BUN Creatinine Ratio 12.6 (10-20); Calcium 9.2 mg/dl (8.5-10.1); Potassium 4.1 mmol/L (3.5-5.1)
[2021-12-20] MEDS: ADVANCED PROBIOTIC 1250 MG CAPSULE PO SCH (08:41)
[2021-12-20] MEDS: ASPIRIN 81 MG ECTAB PO SCH (08:42)
[2021-12-20] MEDS: dilTIAZem HCL 240 MG CAPCR PO SCH (08:42)
[2021-12-20] MEDS: FLUTICASONE PROPIONATE NA SPR 16 GM BTL SCH ×2 (08:43→21:03)
[2021-12-20] MEDS: ROSUVASTATIN CALCIUM 10 MG TAB PO SCH (08:43)
[2021-12-20] MEDS: INSULIN GLARGINE SOLOSTAR 100 UNITS/ML 3 ML PEN SC SCH ×2 (09:38→21:03)
--- NOTE | 2021-12-20 10:53 | Pharmacy Report ---
Pharmacy Glycemic Short Note 2 - Date of Service December 20, 2021 - Glycemic Short BSG Results (Last 24 hours): 12/19/21 12/19/21 12/19/21 12:30 12:32 17:09 Glucose POC Glucose 328 H* 324 H* 241 H 12/19/21 12/19/21 12/20/21 20:39 23:43 03:58 Glucose POC Glucose 252 H 171 H 143 H 12/20/21 12/20/21 12/20/21 05:49 05:49 08:36 Glucose 132 H Cancelled POC Glucose 151 H OUTPATIENT ANTIDIABETIC REGIMEN: * Lantus 40 units SC BID * Novolog 22 units SC TID (up to 120 units per day) * HbA1c: 9% (12/17/21) ASSESSMENT: 12/20/21: * Patient received total of 116 units of insulin yesterday; 60 units basal and 56 units bolus * Fasting BSG today was 132 mg/dl. Started patient on home basal dose of Lantus 40 units BID this AM. This will be an increase from yesterday. * Pre-lunch BSG today was only 182 mg/dl on the Novolog parameters from yesterday. Continued the same today. Background 12/19/21: * NN is a 55 year old male POD 0 s/p right calcaneal ostectomy secondary to diabetic foot ulcer/osteomyelitis * No intraoperative steroids given * Pharmacy consulted for glycemic management this evening due to poorly controlled BSGs so far this admission * BSG at lunchtime of 328 mg/dL - likely related to significant under-dosing of insulin compared to outpatient doses. Will increase Lantus and significantly tighten Novolog to achieve better glycemic control. * Initially attempted to give 60 units of Lantus at time of consult to equal full daily dose of 80 units, but patient refused and is concerned about going low * He is agreeable to 40 units, so will give 40 units and utilize overnight checks at 00,04 to cover any additional needs PLAN FOR INPATIENT GLYCEMIC CONTROL: * Basal insulin * Lantus 40 units SQ BID * Bolus insulin * NovoLog per scale ACHS or Q6hrs while NPO * Goal Range: Low 110 mg/dL - High 140 mg/dL * Correction Factor: 10 mg/dL/unit * Nutritional / Prandial insulin per carb ratio of 1 unit per 4 grams CHO consumed
--- NOTE | 2021-12-20 15:58 | Hospitalist Progress Note ---
Date of Service December 20, 2021 Assessment & Plan (1) Ulcer of right foot due to type 2 diabetes mellitus: (2) Osteomyelitis: Plan: ASSESSMENT AND PLAN: This is a 55-year-old male who presents with nonhealing diabetic foot ulcer. 1. 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 Ankle MRI: 1. Interval development of a large heel ulcer. There is edema and enhancement of the calcaneus compatible with osteomyelitis. No drainable fluid collection is seen. 2. Split tear peroneus brevis is again seen. CT Angio Right Lower Extremity: 1. Diffuse atherosclerotic disease without evidence of occlusion. 2. Retrocalcaneal ulcer is seen with locules of gas extending to the cortical surface of the posterior calcaneus. There is questionable cortical erosion along the inferior cortex. If there is concern for osteomyelitis, MRI can be performed. Wound culture: E coli, and Grp Beta Strep Blood cultures: negative x 48 hours R foot drainage culture: pending ID consulted-recommend IV Zosyn and daptomycin x6 weeks 12/19: Right Calcaneal Ostectomy Stable overall Continue IV Zosyn,, daptomycin For wound closure later this week for podiatry service 12/17: Discussed with [facility] kidney tool coordinator De- recommend to hold mycophenolate for now, may be held for up to 2 weeks CellCept infusion also being held at this time 2. History of diabetes: Continue Lantus and sliding scale 3. Status post renal transplant: On mycophenolate 360 mg p.o. b.i.d. and on belatacept 250 mg IV monthly, next due on end of this month. Follow up with transplant center. If needed, will discuss with transplant center about holding anti rejection meds. -- Discussed with [facility] kidney tool coordinator De- recommend to hold mycophenolate for now, may be held for up to 2 weeks 4. History of coronary artery disease, status post stent: On aspirin and diltiazem. Currently stable. 5. History of severe sleep apnea: On CPAP at bedtime. 6. History of hypertension: Continue with diltiazem. add PRN hydralazine 7. Hyperlipidemia: -Holding statin in light of daptomycin use 8. History of chronic cough: Says it is since the cervical vertebral fracture and also has some difficulty swallowing once in a while. --Patient currently does not have dysphagia 9. Deep venous thrombosis prophylaxis: --SCDs for now will discuss with Dr. Donaldson when Lovenox/Heparin can be started plan of care discussed with patient all questions answered He is understanding, agreeable, comfortable with the plan of care Admission and Anticipated Discharge Date Admission Date: December 16, 2021 Subjective Follow-up for osteomyelitis of the right heel, etc. Seen resting in bed, comfortable, not in distress States he feels fine overall Denies pain over the right foot or on the right leg No chest pain no shortness of breath, palpitations, dizziness, fevers or chills, nausea vomiting Positive BM No other symptom Review of Systems Review of Systems: all noted and negative except for above Physical Exam Physical Exam: General- oriented x 3, not in distress, speaks in sentences with no effort or accessory muscle use Eyes- anicteric Neck- no JVD Lungs- clear breath sounds, no crackles bilaterally Heart- normal rate, regular rhythm; no murmurs Abdomen- normal bowel sounds, nondistended, soft, nontender Extremities- no pretibial edema, no calf tenderness Right foot: Heavy dressing in place, no signs of bleeding or discharge, boot in place Neuro- alert, oriented x 3; no gross focal neurologic deficits Skin- warm & dry Results & Data Results & Data ([facility]) Vital Signs (Past 12 Hours) Vital Signs Temp Pulse Pulse Resp BP Pulse Ox 12/20/21 08:39 78 122/71 12/20/21 07:30 37.2 C 74 18 116/67 96 12/20/21 04:06 37.9 C H 84 16 126/71 95 all noted and reviewed including below
--- NOTE | 2021-12-20 17:23 | Surgery Consultation ---
Date of Consultation December 20, 2021 Assessment & Plan (1) Ulcer of right foot due to type 2 diabetes mellitus: Reviewed plan for delayed primary closure 12/20/21 5pm tentative time per OR. Reviewed wound size plus significant deficit from surgical excision requiring rotational skin plasty for definitive closure. Reviewed need for compliance and planned post operative care. All questions answered. Consent for procedure obtained. All potential risks, benefits, complications, alternatives, rehab, potential for incomplete relief of symptoms, need for further surgery, DVT, PE, , persistent pain, swelling, scarring, weakness, neurovascular, wound complications and potential for amputations were discussed with patient. Unwanted outcomes such as, but not limited to were reviewed including under correction, overcorrection, return of deformity, infection. All questions were answered. (2) Diabetic foot infection: Bone cultures taken 12/19/21 Awaiting Pathology results. Continue IV abx therapy per ID Zosyn + Daptomycin Patient will require PICC line prior to discharge History of Present Illness Attending Physician: Fox Bentley MD History of Present Illness Patient is status post day 1 excision of wound, calcaneal ostectomy left heel. He is resting comfortably. His his present who helps with care. There are no complaints or concerns. Dressing is intact. Allergies Allergy/AdvReac Type Severity Reaction Status Date / Time ondansetron Allergy Intermediate confusion Unverified 12/16/21 19:21 bee venom protein (honey bee) Allergy Unknown SHORTNESS Verified 12/16/21 19:21 OF BREATH Home Medications Medication Instructions Recorded Confirmed Type amitriptyline 25 mg tablet 25 mg PO HS 09/11/19 12/16/21 History aspirin 81 mg tablet,delayed 81 mg PO QAM 09/11/19 12/16/21 History release (Aspirin Low Dose) epinephrine 0.3 mg/0.3 mL 0.3 mg SUBCUT UD PRN 09/11/19 12/16/21 History injection, auto-injector (EpiPen) insulin glargine 100 unit/mL (3 40 unit SUBCUT BID 09/11/19 12/16/21 History mL) subcutaneous pen (Basaglar KwikPen U-100 Insulin) insulin lispro 100 unit/mL 22 unit SUBCUT AC MDD 100 units 09/11/19 12/16/21 History subcutaneous pen (Humalog KwikPen per day (U-100) Insulin) rosuvastatin 20 mg tablet (Crestor) 10 mg PO QAM 09/11/19 12/16/21 History tamsulosin 0.4 mg capsule (Flomax) 0.4 mg PO HS 09/11/19 12/16/21 History diltiazem HCl 240 mg 240 mg PO QAM 05/29/20 12/16/21 History capsule,extended release 24 hr belatacept 250 mg intravenous 250 mg IV MONTHLY #0 05/30/20 12/16/21 History solution mycophenolate sodium 180 mg 360 mg PO BID 05/30/20 12/16/21 History tablet,delayed release pregabalin 150 mg capsule 150 mg PO PM 05/30/20 12/16/21 History acetaminophen 325 mg tablet 650 mg PO QID PRN 11/19/21 12/16/21 History (Tylenol) fluticasone propionate 50 1 spray NA BID 30 Days #1 g 11/21/21 12/16/21 Rx mcg/actuation nasal spray,suspension collagenase clostridium histo. 250 1 applic TOPICAL UD 12/16/21 12/16/21 History unit/gram topical ointment (Santyl) sildenafil 25 mg tablet 25 mg PO UD PRN 12/16/21 12/16/21 History Patient History Medical History Diabetes Gastroparesis History of peritoneal dialysis Hypertension Surgical History Hx of kidney transplant September 2017 [facility] Family History Other Family history non-contributory Social History Smoking Status: Never smoker Hx Alcohol Use: Yes Alcohol type: other Hx Substance Use: No Preferred Language: Kenyan Communication Ability: Effective Sports Therapist Required: No Beliefs That Will Affect Care: None marital status: Current Living Situation: Family Other Information That Helps Us Care for You: No Feels Safe at Home: Yes Safety Concerns: Feels Safe At This Time Assistive Devices: Special Shoe and Walker Review of Systems Review of Systems: all noted and negative except for above Physical Exam Physical Exam: Pedal pulses palpable. There is minimal edema. Surgical site remains open. Results & Data ([facility]) Vital Signs (Past 12 Hours) Vital Signs Temp Pulse Pulse Resp BP Pulse Ox 12/20/21 15:52 37.2 C 71 18 120/70 97 12/20/21 08:39 78 122/71 12/20/21 07:30 37.2 C 74 18 116/67 96
[2021-12-20] MEDS: DAPTOmycin 525 MG in SYRINGE 0 ML IV SCH (17:25)
[2021-12-20] MEDS: PREGABALIN 150 MG CAP PO SCH (21:06)
[2021-12-20] MEDS: TAMSULOSIN HCL 0.4 MG CAP PO SCH (21:07)
[2021-12-20] MEDS: AMITRIPTYLINE HCL 25 MG TAB PO SCH (21:07)
[2021-12-21] MEDS ORDERED: Nursing to Pharmacy Communication SCH ×2 (04:45→19:45)
[2021-12-21] MEDS: INSULIN ASPART PER UNIT SC SCH ×6 (06:11→23:59)
[2021-12-21] MEDS: PIPERACILLIN/TAZOBACTAM 3.375 GM in DEXTROSE 5% 100 ML IV SCH ×3 (06:12→20:19)
[2021-12-21] MEDS ORDERED: INSULIN GLARGINE SOLOSTAR 100 UNITS/ML 3 ML PEN SC ONE (07:30)
[2021-12-21] MEDS: ASPIRIN 81 MG ECTAB PO SCH (08:11)
[2021-12-21] MEDS: ADVANCED PROBIOTIC 1250 MG CAPSULE PO SCH (08:11)
[2021-12-21] MEDS: FLUTICASONE PROPIONATE NA SPR 16 GM BTL SCH ×2 (08:11→20:22)
[2021-12-21] MEDS: dilTIAZem HCL 240 MG CAPCR PO SCH (08:11)
[2021-12-21] MEDS: ROSUVASTATIN CALCIUM 10 MG TAB PO SCH (08:12)
[2021-12-21] MEDS: HEPARIN 100 UNIT/ML 5ML FLUSH FLUSH PRN (10:05)
[2021-12-21 10:16] LABS: Creatinine Clr Calc Pharmacy 99.1 ml/min; Est GFR (African American) 85.6 ml/min; Est GFR (Non-African American) 73.8 ml/min
[2021-12-21] MEDS: SODIUM CHLORIDE 0.9% 1000ML 1,000 ML IV SCH ×2 (10:51→23:54)
--- NOTE | 2021-12-21 15:13 | Hospitalist Progress Note ---
Date of Service December 21, 2021 Assessment & Plan (1) Ulcer of right foot due to type 2 diabetes mellitus: (2) Osteomyelitis: Plan: ASSESSMENT AND PLAN: This is a 55-year-old male who presents with nonhealing diabetic foot ulcer. 1. 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 Ankle MRI: 1. Interval development of a large heel ulcer. There is edema and enhancement of the calcaneus compatible with osteomyelitis. No drainable fluid collection is seen. 2. Split tear peroneus brevis is again seen. CT Angio Right Lower Extremity: 1. Diffuse atherosclerotic disease without evidence of occlusion. 2. Retrocalcaneal ulcer is seen with locules of gas extending to the cortical surface of the posterior calcaneus. There is questionable cortical erosion along the inferior cortex. If there is concern for osteomyelitis, MRI can be performed. Wound culture: E coli, and Grp B Beta Strep Blood cultures: negative x 48 hours R foot drainage culture: E coli, Grp B Beta Strep ID consulted-recommend IV Zosyn and Daptomycin x6 weeks 12/19: Right Calcaneal Ostectomy 12/20: for wound closure today Stable overall Continue IV Zosyn, daptomycin PT/OT 2. History of diabetes: Continue Lantus and sliding scale 3. Status post renal transplant: On mycophenolate 360 mg p.o. b.i.d. and on belatacept 250 mg IV monthly, next due on end of this month. Follow up with transplant center. If needed, will discuss with transplant center about holding anti rejection meds. -- Discussed with [facility] kidney administrative support coordinator De- recommend to hold mycophenolate for now, may be held for up to 2 weeks (mycophenolate held 12/18) 4. History of coronary artery disease, status post stent: On aspirin and diltiazem. Currently stable. 5. History of severe sleep apnea: On CPAP at bedtime. 6. History of hypertension: Continue with diltiazem. add PRN hydralazine 7. Hyperlipidemia: -Holding statin in light of daptomycin use 8. History of chronic cough: Says it is since the cervical vertebral fracture and also has some difficulty swallowing once in a while. --Patient currently does not have dysphagia 9. Deep venous thrombosis prophylaxis: --SCDs for now will discuss with Dr. Donaldson when Lovenox/Heparin can be started plan of care discussed with patient all questions answered He is understanding, agreeable, comfortable with the plan of care Admission and Anticipated Discharge Date Admission Date: December 16, 2021 Subjective ff up for R foot osteomyelitis, etc seen resting in chair, comfortable states he feels fine overall no pain over the right foot no chest pain, dyspnea, palpitations, dizziness no fever/chills, nausea/vomiting no other symptoms Review of Systems Review of Systems: all noted and negative except for above Physical Exam Physical Exam: General- oriented x 3, not in distress, speaks in sentences with no effort or accessory muscle use Eyes- anicteric Neck- no JVD Lungs- clear BS BL Heart- normal rate, regular rhythm; no murmurs Abdomen- normal bowel sounds, nondistended, soft, nontender Extremities- no pretibial edema, no calf tenderness R foot: heavy dressing in place, no bleeding no lower leg edema/tenderness Neuro- alert, oriented x 3; no gross focal neurologic deficits Skin- warm & dry Results & Data Results & Data ([facility]) Vital Signs (Past 12 Hours) Vital Signs Temp Pulse Resp BP Pulse Ox 12/21/21 14:47 36.8 C 68 16 106/82 98 12/21/21 07:38 36.6 C 74 18 116/68 97 all noted and reviewed including below
[2021-12-21] MEDS: DAPTOmycin 525 MG in SYRINGE 0 ML IV SCH (16:11)
[2021-12-21] MEDS ORDERED: MIDAZOLAM HCL 1 MG/ML 2ML VIAL ONE (16:54)
[2021-12-21] MEDS ORDERED: fentaNYL citrate 100 MCG/2 ML VIAL ONE (16:54)
[2021-12-21] MEDS ORDERED: PROPOFOL IV EMULSION 10 MG/ML 20 ML VIAL IV ONE (16:54)
[2021-12-21] MEDS ORDERED: LIDOCAINE 2% 2 ML VIAL/AMP(20MG/ML) INFIL ONE ×2 (16:54→19:00)
--- NOTE | 2021-12-21 17:15 | Anesthesiology Consultation ---
Date of Service December 21, 2021 Assessment & Plan (1) Encounter for pre-operative examination: Chart Review Chart Review: Acceptable Risk for Surgery and Patient NOT seen in Pre Admission Testing Consults Requested none History Surgery Operation Date: 12/18/21 10:20 Proposed Procedures p Right Calcaneal Osteotomy - Vince Donaldson DPM, Operation Date: 12/19/21 07:30 Proposed Procedures p Right Calcaneal Osteotomy - Vince Donaldson DPM, MS Operation Date: 12/21/21 08:20 Proposed Procedures p Rotation Skinplasty Delayed Primary Closure - Vince Donaldson DPM, MS Height/Weight Height: 6 ft 3 in Weight: 109 kg Allergies Allergy/AdvReac Type Severity Reaction Status Date / Time ondansetron Allergy Intermediate confusion Unverified 12/16/21 19:21 bee venom protein (honey bee) Allergy Unknown SHORTNESS Verified 12/16/21 19:21 OF BREATH Medications Home Medications Medication Instructions Recorded Confirmed Last Taken amitriptyline 25 mg tablet 25 mg PO HS 09/11/19 12/16/21 12/15/21 aspirin 81 mg tablet,delayed 81 mg PO QAM 09/11/19 12/16/21 12/16/21 release (Aspirin Low Dose) epinephrine 0.3 mg/0.3 mL 0.3 mg SUBCUT UD PRN 09/11/19 12/16/21 Unknown injection, auto-injector (EpiPen) insulin glargine 100 unit/mL (3 40 unit SUBCUT BID 09/11/19 12/16/21 12/16/21 mL) subcutaneous pen (Basaglar am KwikPen U-100 Insulin) insulin lispro 100 unit/mL 22 unit SUBCUT AC MDD 100 units 09/11/19 12/16/21 12/16/21 subcutaneous pen (Humalog KwikPen per day x3 (U-100) Insulin) rosuvastatin 20 mg tablet (Crestor) 10 mg PO QAM 09/11/19 12/16/21 12/15/21 tamsulosin 0.4 mg capsule (Flomax) 0.4 mg PO HS 09/11/19 12/16/21 12/15/21 diltiazem HCl 240 mg 240 mg PO QAM 05/29/20 12/16/21 12/16/21 capsule,extended release 24 hr belatacept 250 mg intravenous 250 mg IV MONTHLY #0 05/30/20 12/16/21 10/20/21 solution mycophenolate sodium 180 mg 360 mg PO BID 05/30/20 12/16/21 12/16/21 tablet,delayed release am pregabalin 150 mg capsule 150 mg PO PM 05/30/20 12/16/21 12/15/21 acetaminophen 325 mg tablet 650 mg PO QID PRN 11/19/21 12/16/21 11/19/21 12:00 (Tylenol) 650 mg fluticasone propionate 50 1 spray NA BID 30 Days #1 g 11/21/21 12/16/21 12/16/21 mcg/actuation nasal am spray,suspension collagenase clostridium histo. 250 1 applic TOPICAL UD 12/16/21 12/16/21 Unknown unit/gram topical ointment (Santyl) sildenafil 25 mg tablet 25 mg PO UD PRN 12/16/21 12/16/21 Unknown Active Medications Generic Name Dose Route Start Last Admin Trade Name Freq PRN Reason Stop Dose Admin Acetaminophen 650 mg 12/17/21 04:17 12/18/21 23:30 Acetaminophen 325 Mg Tab PO 01/16/22 04:16 650 mg Q4H PRN Administration pain/fever Amitriptyline HCl 25 mg 12/17/21 21:00 12/20/21 21:07 Amitriptyline Hcl 25 Mg Tab PO 01/16/22 20:59 25 mg HS JOSE Administration Aspirin 81 mg 12/17/21 09:00 12/21/21 08:11 Aspirin 81 Mg Ectab PO 01/16/22 08:59 81 mg QAM JOSE Administration Diltiazem HCl 240 mg 12/17/21 09:00 12/21/21 08:11 Diltiazem Hcl 240 Mg Capcr PO 01/16/22 08:59 240 mg QAM JOSE Administration Fluticasone Propionate 1 sprays 12/17/21 09:00 12/21/21 08:11 Fluticasone Propionate Na Spr 16 Gm Btl NA 01/16/22 08:59 1 sprays BID JOSE Administration Heparin Sodium (Porcine) 5 ml 12/19/21 01:40 12/21/21 10:05 Heparin 100 Unit/Ml 5ml Flush FLUSH 01/18/22 01:39 5 ml PRN PRN Administration Flush Piperacillin Sod/Tazobactam 115 mls @ 30 mls/hr 12/17/21 05:00 12/21/21 16:29 Sod 3.375 gm/ Dextrose IV 12/24/21 04:59 Infused Q8H JOSE Infusion Protocol Daptomycin 525 mg/ Syringe 10.5 mls @ 5.25 mls/min 12/18/21 17:15 12/21/21 16:11 IV 01/29/22 17:14 5.25 mls/min DAILY@1700 JOSE Administration Protocol Sodium Chloride 1,000 mls @ 80 mls/hr 12/21/21 10:15 12/21/21 10:51 Nss 1000ml IV 01/20/22 10:14 80 mls/hr .[id number] JOSE Administration Insulin Aspart 0 units 12/21/21 06:00 12/21/21 12:45 Insulin Aspart Per Unit SC 01/20/22 05:59 4 units Q6 JOSE Administration Lactobacillus Acidophilus 2 cap 12/19/21 13:15 12/21/21 08:11 Advanced Probiotic 1250 Mg Capsule PO 01/18/22 13:14 2 cap DAILY JOSE Administration Mycophenolate Sodium 360 mg 12/17/21 09:00 12/17/21 10:25 Mycophenolate Sodium 180 Mg Tab PO 01/16/22 08:59 360 mg BID JOSE Administration Pregabalin 150 mg 12/17/21 21:00 12/20/21 21:06 Pregabalin 150 Mg Cap PO 01/16/22 20:59 150 mg PM JOSE Administration Rosuvastatin Calcium 10 mg 12/17/21 09:00 12/21/21 08:12 Rosuvastatin Calcium 10 Mg Tab PO 01/16/22 08:59 10 mg QAM JOSE Administration Tamsulosin HCl 0.4 mg 12/17/21 21:00 12/20/21 21:07 Tamsulosin Hcl 0.4 Mg Cap PO 01/16/22 20:59 0.4 mg HS JOSE Administration NPO Date Last Intake of Fluids: 12/20/21 Time Last Intake of Fluids: 22:00 Date Last Intake of Solids: 12/20/21 Time Last Intake of Solids: 22:00 Past Medical History Medical History Diabetes Gastroparesis History of peritoneal dialysis Hypertension Past Family History Family History Other Family history non-contributory Past Surgical History Surgical History Hx of kidney transplant September 2017 [facility] Social History Smoking Status: Never smoker Hx Alcohol Use: Yes Alcohol type: other alcohol intake frequency: holidays/special occasions only Hx Substance Use: No substance use type: does not use Physical Exam Vital Signs Last Vital Signs Temp 37.5 C 12/21/21 16:26 Pulse 66 12/21/21 16:26 Resp 12 12/21/21 16:26 BP 124/72 12/21/21 16:26 Pulse Ox 96 12/21/21 16:26 Testing Laboratory Results 12/17/21 05:23 12/21/21 09:21 PT 12.6 Seconds (9.0-12.0) H 12/16/21 18:37 INR 1.2 (0.9-1.1) H 12/16/21 18:37 APTT 23.8 Seconds (21.0-31.0) 12/16/21 18:37 Hemoglobin A1c 9.0 % (4.5-5.6) H 12/17/21 05:23 12/16/21 21:07 Gram Stain - Final Foot,Left Deep Wound Culture - Final Escherichia coli Group B Beta Strep Bacteroides thetaiotaomicron Anaerobic gram negative cocci 12/19/21 08:27 Gram Stain - Final Foot,Right Aerobic and Anaerobic Culture - Preliminary Escherichia coli Group B Beta Strep 12/16/21 18:37 Aerobic Blood Culture - Preliminary Blood No growth in Aerobic bottle after 48 hours. Anaerobic Blood Culture - Preliminary No growth in Anaerobic bottle after 48 hours. 12/16/21 19:46 Aerobic Blood Culture - Preliminary Blood No growth in Aerobic bottle after 48 hours. Anaerobic Blood Culture - Final 12/21/21 12/21/21 12:29 06:00 POC Glucose 172 H 184 H
[2021-12-21] MEDS ORDERED: ePHEDrine sulfate 50 MG/ML AMP IV PRN (17:16)
[2021-12-21] MEDS ORDERED: ATROPINE SULFATE 0.1 MG/ML 10ML SYR IV PRN (17:16)
[2021-12-21] MEDS ORDERED: LABETALOL HCL IV 5 MG/ML 20ML IV PRN (17:16)
[2021-12-21] MEDS ORDERED: PHENYLEPHRINE 100MCG/ML 5ML SYR IV PRN (17:16)
[2021-12-21] MEDS ORDERED: HYDROmorphone INJ 1 MG/ML SYRINGE IV PRN (17:16)
[2021-12-21] MEDS ORDERED: fentaNYL citrate 100 MCG/2 ML VIAL IV PRN (17:16)
--- NOTE | 2021-12-21 17:41 | History & Physical Bridge Note ---
Date of Service December 21, 2021 History & Physical Bridge Note I have examined the patient, reviewed the History & Physical and in the interval since the performance of the History & Physical I have noted the following changes of clinical significance: no changes noted
--- NOTE | 2021-12-21 19:01 | Post Operative Brief Note ---
Immediate Post Op Note v1 Date of Surgery December 21, 2021 Pre & Post Diagnosis Operation Date: 12/18/21 10:20 <No data on this case meets the specified criteria> Operation Date: 12/19/21 07:30 Pre-Op Diagnosis: Ulcer of right foot due to type 2 diabetes mellitus; Osteomyelitis of calcaneus Post-Op Diagnosis: Ulcer of right foot due to type 2 diabetes mellitus; Osteomyelitis of calcaneus Operation Date: 12/21/21 08:20 Pre-Op Diagnosis: Right foot ulcer due to Type II diabetes mellitus Post-Op Diagnosis: Right foot ulcer due to Type II diabetes mellitus I identified the patient and participated in the time-out.: Yes Procedure Operation Date: 12/18/21 10:20 <No data on this case meets the specified criteria> Operation Date: 12/19/21 07:30 Actual Procedures p Right Calcaneal Ostectomy - Vince Donaldson DPM, MS Operation Date: 12/21/21 08:20 Actual Procedures p Right Foot Rotation Skin Plasty Delayed Primary Closure(Right) - Vince Donaldson DPM, MS Surgeon Vince Donaldson DPM, MS Perinatal Breastfeeding Assistant None Estimated Blood Loss 5 Findings Consistent with Post-Op Diagnosis Drains Destiny Drain Anesthesia Type [facility]
--- NOTE | 2021-12-21 19:11 | Anesthesia Procedure Note ---
Date of Service December 21, 2021 Anesthesia Post Epidural Note Vital Signs Vital Signs: Temp Pulse Resp BP Pulse Ox 36.0 C L 72 18 128/69 97 12/21/21 19:03 12/21/21 19:10 12/21/21 19:10 12/21/21 19:10 12/21/21 19:10 Pain Intensity Right Heel: Pain Intensity: 0 Notes Mental Status: alert / awake / arousable and participated in evaluation Nausea / Vomiting: adequately controlled Pain: adequately controlled Airway Patency, RR, SpO2: stable & adequate BP & HR: stable & adequate Hydration State: stable & adequate Neuraxial Anesthesia: was administered and sensory block is resolving Anesthetic Complications: no major complications apparent and Pt Satisfied with anesthetic care Epidural: Removed without complications and With tip intact
--- NOTE | 2021-12-21 19:12 | Operative Report ---
Post Operative Report Pre & Post Diagnosis Operation Date: 12/18/21 10:20 <No data on this case meets the specified criteria> Operation Date: 12/19/21 07:30 Pre-Op Diagnosis: Ulcer of right foot due to type 2 diabetes mellitus; Osteomyelitis of calcaneus Post-Op Diagnosis: Ulcer of right foot due to type 2 diabetes mellitus; Osteomyelitis of calcaneus Operation Date: 12/21/21 08:20 Pre-Op Diagnosis: Right foot ulcer due to Type II diabetes mellitus Post-Op Diagnosis: Right foot ulcer due to Type II diabetes mellitus I identified the patient and participated in the time-out.: Yes Procedure Operation Date: 12/18/21 10:20 <No data on this case meets the specified criteria> Operation Date: 12/19/21 07:30 Actual Procedures p Right Calcaneal Ostectomy - Vince Donaldson DPM, MS Operation Date: 12/21/21 08:20 Actual Procedures p Right Foot Rotation Skin Plasty Delayed Primary Closure(Right) - Vince Donaldson DPM, MS Surgeon Vince Donaldson DPM, MS Property Loss Insurance Claim Adjuster None Estimated Blood Loss 5 Findings Consistent with Post-Op Diagnosis none Specimens None Drains Destiny drain placed Complications None Description of Procedure History of present illness: Patient is a 55-year-old male with a Right foot diabetic ulcer.Patient underwent excision of wound and calcaneal osteotomy 12/20/21 and returns for delayed primary closure with rotational skin plasty. I did discuss procedure in detail as well as postoperative care. All questions were answered. All potenti al risks, benefits, complications, alternatives, rehab, potential for incomplete relief of symptoms, need for further surgery, DVT, PE, , persistent pain, swelling, scarring, weakness, neurovascular, wound complications and potential for amputations were discussed with patient. Unwanted outcomes such as, but not limited to were reviewed including under correction, overcorrection, return of deformity, infection. All questions were answered. Patient has decided to proceed with procedure as indicated. Preoperative diagnosis: Right foot diabetic heel ulcer status post excision of wound and calcaneal osteotomy Postoperative diagnosis: Same Procedure in detail: Delayed Primary closure, rotational skin plasty Surgeon: Dr. Donaldson Property Loss Insurance Claim Adjuster: none Anesthesia: local with monitored anesthesia care Hemostasis: pneumatic right thigh tourniquet Estimated blood loss: none Specimens: None Drains: Wolverine drain Procedure in detail: Under mild sedation the patient was brought in the operating room and placed on the operating table in prone position. A pneumatic right calf tourniquet was then placed about the patient's right calf. Following IV sedation local anest mihir the foot and ankle were prepped scrubbed and draped in the usual aseptic manner. An Esmarch bandage was utilized to exsanguinate the patient's right ankle and the pneumatic calf tourniquet was then inflated. Attention was then directed to the retro calcaneal heel diabetic foot ulcer. Copious amounts of sterile normal saline were utilized to flush the excision site. The wound measures 10cm x 5 cm x 2 cm. An elongated semi circular incision was created adjacent to and adjoining the wound on the medial plantar rear foot utilizing a sharp, sterile, #15 blade. The incision which was deepened through subcutaneous tissue using sharp blunt dissection. Care was taken to identify and retract all vital neurovascular structures. All bleeders were ligated and cauterized necessary. At this time the plantar fat pad was rotated for coverage of the deficit. The flap was reapproximated utilizing 2-0 and 3-0 nylon utilizing horizontal mattress suture technique.. The wound was then dressed with sterile compressive dressing consisting of adaptic, 4 x 4's, Esthela, Kerlix, ABD. The pneumatic calf tourniquet was deflated and a prompt hyperemic response was noted to all digits of the right foot. The Patient tolerated procedure and anesthesia well he was transferred to recovery room vital signs stable and vascular status intact all toes of the right foot following. Following a period of postoperative monitoring the patient will be discharged back to floor on the following written and postoperative oral instructions. Keep dressing clean dry and intact, avoid ambulation, ice and elevate right ankle and foot contact Dr. Donaldson for all postoperative care if any problems arise . I attest to the content of the Intraoperative Record and any orders documented therein. Any exceptions are noted below.
[2021-12-21] MEDS ORDERED: BELATACEPT IV SCH (19:26)
[2021-12-21] MEDS: TAMSULOSIN HCL 0.4 MG CAP PO SCH (20:22)
[2021-12-21] MEDS: AMITRIPTYLINE HCL 25 MG TAB PO SCH (20:22)
[2021-12-21] MEDS: PREGABALIN 150 MG CAP PO SCH (20:22)
[2021-12-21] MEDS ORDERED: INSULIN GLARGINE SOLOSTAR 100 UNITS/ML 3 ML PEN SC SCH (21:00)
[2021-12-21] MEDS ORDERED: INSULIN GLARGINE SOLOSTAR 100 UNITS/ML 3 ML PEN SQ SCH (21:00)
[2021-12-22] MEDS: INSULIN ASPART PER UNIT SC SCH ×5 (04:08→21:01)
[2021-12-22] MEDS: PIPERACILLIN/TAZOBACTAM 3.375 GM in DEXTROSE 5% 100 ML IV SCH ×2 (04:09→13:11)
[2021-12-22] MEDS ORDERED: INSULIN GLARGINE SOLOSTAR 100 UNITS/ML 3 ML PEN SC ONE (08:00)
[2021-12-22] MEDS: ADVANCED PROBIOTIC 1250 MG CAPSULE PO SCH (09:05)
[2021-12-22] MEDS: FLUTICASONE PROPIONATE NA SPR 16 GM BTL SCH ×2 (09:05→21:01)
[2021-12-22] MEDS: ROSUVASTATIN CALCIUM 10 MG TAB PO SCH (09:06)
[2021-12-22] MEDS: dilTIAZem HCL 240 MG CAPCR PO SCH (09:06)
[2021-12-22] MEDS: ASPIRIN 81 MG ECTAB PO SCH (09:06)
[2021-12-22] MEDS: ERTAPENEM SODIUM 1,000 MG in SYRINGE 0 ML IV SCH (17:01)
[2021-12-22] MEDS: HEPARIN 100 UNIT/ML 5ML FLUSH FLUSH PRN (17:02)
--- NOTE | 2021-12-22 18:54 | Hospitalist Progress Note ---
Date of Service December 22, 2021 Assessment & Plan (1) Ulcer of right foot due to type 2 diabetes mellitus: (2) Osteomyelitis: Plan: ASSESSMENT AND PLAN: This is a 55-year-old male who presents with nonhealing diabetic foot ulcer. 1. 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 Ankle MRI: 1. Interval development of a large heel ulcer. There is edema and enhancement of the calcaneus compatible with osteomyelitis. No drainable fluid collection is seen. 2. Split tear peroneus brevis is again seen. CT Angio Right Lower Extremity: 1. Diffuse atherosclerotic disease without evidence of occlusion. 2. Retrocalcaneal ulcer is seen with locules of gas extending to the cortical surface of the posterior calcaneus. There is questionable cortical erosion along the inferior cortex. If there is concern for osteomyelitis, MRI can be performed. 12/19: Right Calcaneal Ostectomyby Dr. Vince Donaldson 12/21: Status post wound closure by Dr. Vince Donaldson Wound culture: E coli, and Grp B Beta Strep Blood cultures: negative x 48 hours R foot drainage culture: E coli, Grp B Beta Strep ID consulted-initially recommended IV Zosyn and Daptomycin x6 weeks Messaged [place] ID Dr. Fuentes today to discuss final wound culture results Recommending to change IV Zosyn daptomycin to ertapenem 1 g IV daily x6 weeks Discussed with Dr. Vince Donaldson, would like to observe patient in the hospital for a few more days 2. History of diabetes: Continue Lantus and sliding scale 3. Status post renal transplant: On mycophenolate 360 mg p.o. b.i.d. and on belatacept 250 mg IV monthly, next due on end of this month. Follow up with transplant center. If needed, will discuss with transplant center about holding anti rejection meds. -- Discussed with [facility] kidney sales office coordinator De-recommen d to hold mycophenolate for now, may be held for up to 2 weeks (mycophenolate held 12/18) --12/22/2021: Discussed again with licha Lloyd kidney sales office coordinator De, still recommending to hold mycophenolate for now Difficulty patient on or [place] for further recommendations regarding mycophenolate and belatacept infusion 4. History of coronary artery disease, status post stent: On aspirin and diltiazem. Currently stable. 5. History of severe sleep apnea: On CPAP at bedtime. 6. History of hypertension: Continue with diltiazem. add PRN hydralazine 7. Hyperlipidemia: -Holding statin in light of daptomycin use 8. History of chronic cough: Says it is since the cervical vertebral fracture and also has some difficulty swallowing once in a while. --Patient currently does not have dysphagia 9. Deep venous thrombosis prophylaxis: --Okay to give Lovenox per Dr. Donaldson plan of care discussed with patient and his at the bedside in detail and at length all questions answered They are understanding, agreeable, comfortable with the plan of care Admission and Anticipated Discharge Date Admission Date: December 16, 2021 Subjective Follow-up for right foot osteomyelitis, status post kidney transplant, etc. Seen sitting up in bedside chair, comfortable, not in distress States he feels fine overall No right lower extremity pain or foot pain No fevers or chills, nausea vomiting No chest pain, palpitations, dizziness Appetite is good No other symptoms Review of Systems Review of Systems: all noted and negative except for above Physical Exam Physical Exam: General- oriented x 3, not in distress, speaks in sentences with no effort or accessory muscle use Eyes- anicteric Neck- no JVD Lungs- clear breath sounds bilaterally, no rales/wheezes Heart- normal rate, regular rhythm; no murmurs Abdomen- normal bowel sounds, nondistended, soft, nontender Extremities-right foot: Heavy dressing in place, no bleeding noted Left lower extremity: Essentially normal right lower leg: No edema/warmth/tenderness Neuro- alert, oriented x 3; no gross focal neurologic deficits Skin- warm & dry Results & Data Results & Data ([facility]) Vital Signs (Past 12 Hours) Vital Signs Temp Pulse Resp BP Pulse Ox 12/22/21 14:32 37 C 82 16 158/70 H 96 12/22/21 07:50 36.9 C 81 16 134/73 96 all noted and reviewed including below
[2021-12-22] MEDS: PREGABALIN 150 MG CAP PO SCH (21:00)
[2021-12-22] MEDS: ENOXAPARIN INJ 40 MG/0.4 ML SYR SQ SCH (21:00)
[2021-12-22] MEDS: TAMSULOSIN HCL 0.4 MG CAP PO SCH (21:00)
[2021-12-22] MEDS: AMITRIPTYLINE HCL 25 MG TAB PO SCH (21:01)
[2021-12-22] MEDS: INSULIN GLARGINE SOLOSTAR 100 UNITS/ML 3 ML PEN SC SCH (21:02)
--- NOTE | 2021-12-22 21:25 | Orthopedic Consultation ---
Date of Consultation December 22, 2021 Assessment & Plan (1) Osteomyelitis: Appreciate ID consult. Awaiting pathology report regarding clear margins. (2) Ulcer of right foot due to type 2 diabetes mellitus: Dressing left intact. Discussed importance for heel to remain off loaded. History of Present Illness Attending Physician: Fox Bentley MD History of Present Illness Patient status post day 1 delayed primary closure. Patient is resting comfortably with off loading boots applied. He has no complaints. Allergies Allergy/AdvReac Type Severity Reaction Status Date / Time ondansetron Allergy Intermediate confusion Unverified 12/16/21 19:21 bee venom protein (honey bee) Allergy Unknown SHORTNESS Verified 12/16/21 19:21 OF BREATH Home Medications Medication Instructions Recorded Confirmed Type amitriptyline 25 mg tablet 25 mg PO HS 09/11/19 12/16/21 History aspirin 81 mg tablet,delayed 81 mg PO QAM 09/11/19 12/16/21 History release (Aspirin Low Dose) epinephrine 0.3 mg/0.3 mL 0.3 mg SUBCUT UD PRN 09/11/19 12/16/21 History injection, auto-injector (EpiPen) insulin glargine 100 unit/mL (3 40 unit SUBCUT BID 09/11/19 12/16/21 History mL) subcutaneous pen (Basaglar KwikPen U-100 Insulin) insulin lispro 100 unit/mL 22 unit SUBCUT AC MDD 100 units 09/11/19 12/16/21 History subcutaneous pen (Humalog KwikPen per day (U-100) Insulin) rosuvastatin 20 mg tablet (Crestor) 10 mg PO QAM 09/11/19 12/16/21 History tamsulosin 0.4 mg capsule (Flomax) 0.4 mg PO HS 09/11/19 12/16/21 History diltiazem HCl 240 mg 240 mg PO QAM 05/29/20 12/16/21 History capsule,extended release 24 hr belatacept 250 mg intravenous 250 mg IV MONTHLY #0 05/30/20 12/16/21 History solution mycophenolate sodium 180 mg 360 mg PO BID 05/30/20 12/16/21 History tablet,delayed release pregabalin 150 mg capsule 150 mg PO PM 05/30/20 12/16/21 History acetaminophen 325 mg tablet 650 mg PO QID PRN 11/19/21 12/16/21 History (Tylenol) fluticasone propionate 50 1 spray NA BID 30 Days #1 g 11/21/21 12/16/21 Rx mcg/actuation nasal spray,suspension collagenase clostridium histo. 250 1 applic TOPICAL UD 12/16/21 12/16/21 History unit/gram topical ointment (Santyl) sildenafil 25 mg tablet 25 mg PO UD PRN 12/16/21 12/16/21 History ertapenem 1 gram solution for 1 g IV DAILY 40 Days #40 ea 12/22/21 Rx injection Patient History Medical History Diabetes Gastroparesis History of peritoneal dialysis Hypertension Surgical History Hx of kidney transplant September 2017 [facility] Family History Other Family history non-contributory Social History Smoking Status: Never smoker Hx Alcohol Use: Yes Alcohol type: other Hx Substance Use: No Preferred Language: Czech Communication Ability: Effective Step Down Nurse Required: No Beliefs That Will Affect Care: None marital status: Current Living Situation: Family Other Information That Helps Us Care for You: No Feels Safe at Home: Yes Safety Concerns: Feels Safe At This Time Assistive Devices: Walker Physical Exam Physical Exam: Dressing is intact. MAINFRAME PROGRAMMER wnl. Results & Data ([facility]) Vital Signs (Past 12 Hours) Vital Signs Temp Pulse Resp BP Pulse Ox 12/22/21 14:32 37 C 82 16 158/70 H 96
[2021-12-23] MEDS: dilTIAZem HCL 240 MG CAPCR PO SCH (08:59)
[2021-12-23] MEDS: ROSUVASTATIN CALCIUM 10 MG TAB PO SCH (08:59)
[2021-12-23] MEDS: ADVANCED PROBIOTIC 1250 MG CAPSULE PO SCH (08:59)
[2021-12-23] MEDS: ASPIRIN 81 MG ECTAB PO SCH (08:59)
[2021-12-23] MEDS: FLUTICASONE PROPIONATE NA SPR 16 GM BTL SCH ×2 (09:00→20:53)
[2021-12-23] MEDS: INSULIN GLARGINE SOLOSTAR 100 UNITS/ML 3 ML PEN SC SCH ×2 (09:00→20:52)
[2021-12-23] MEDS: INSULIN ASPART PER UNIT SC SCH ×4 (09:01→20:53)
--- NOTE | 2021-12-23 13:44 | Pharmacy Report ---
Pharmacy Glycemic Short Note 2 - Date of Service December 23, 2021 - Glycemic Short BSG Results (Last 24 hours): 12/22/21 12/22/21 12/23/21 17:05 20:34 08:28 POC Glucose 92 146 H 142 H 12/23/21 12:19 POC Glucose 219 H OUTPATIENT ANTIDIABETIC REGIMEN: * Lantus 40 units SC BID * Novolog 22 units SC TID (up to 120 units per day) * HbA1c: 9% (12/17/21) ASSESSMENT: 12/23/21: * Ramesh received a total of 147 units of SQ insulin yesterday (80 units Lantus, 67 units novolog) * Fasting BSG improved today. Will continue increased dose of Lantus 40 units BID. * Lunch appears to consistently be the highest BSG of the day, therefore I will tighten carb coverage with breakfast only. 12/20/21: * Patient received total of 116 units of insulin yesterday; 60 units basal and 56 units bolus * Fasting BSG today was 132 mg/dl. Started patient on home basal dose of Lantus 40 units BID this AM. This will be an increase from yesterday. * Pre-lunch BSG today was only 182 mg/dl on the Novolog parameters from yesterday. Continued the same today. Background 12/19/21: * NN is a 55 year old male POD 0 s/p right calcaneal ostectomy secondary to diabetic foot ulcer/osteomyelitis * No intraoperative steroids given * Pharmacy consulted for glycemic management this evening due to poorly controlled BSGs so far this admission * BSG at lunchtime of 328 mg/dL - likely related to significant under-dosing of insulin compared to outpatient doses. Will increase Lantus and significantly tighten Novolog to achieve better glycemic control. * Initially attempted to give 60 units of Lantus at time of consult to equal full daily dose of 80 units, but patient refused and is concerned about going low * He is agreeable to 40 units, so will give 40 units and utilize overnight checks at 00,04 to cover any additional needs PLAN FOR INPATIENT GLYCEMIC CONTROL: * Basal insulin * Lantus 40 units SQ BID * Bolus insulin * NovoLog per scale ACHS or Q6hrs while NPO * Goal Range: Low 110 mg/dL - High 140 mg/dL Breakfast: * Correction Factor: 10 mg/dL/unit * Nutritional / Prandial insulin per carb ratio of 1 unit per 3 grams CHO consumed Lunch/dinner/HS: * Correction Factor: 10 mg/dL/unit * Nutritional / Prandial insulin per carb ratio of 1 unit per 4 grams CHO consumed
[2021-12-23] MEDS: ERTAPENEM SODIUM 1,000 MG in SYRINGE 0 ML IV SCH (17:00)
[2021-12-23] MEDS: ENOXAPARIN INJ 40 MG/0.4 ML SYR SQ SCH (17:41)
--- NOTE | 2021-12-23 18:47 | Hospitalist Progress Note ---
Date of Service December 23, 2021 Assessment & Plan (1) Ulcer of right foot due to type 2 diabetes mellitus: (2) Osteomyelitis: Plan: ASSESSMENT AND PLAN: This is a 55-year-old male who presents with nonhealing diabetic foot ulcer. 1. 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 Ankle MRI: 1. Interval development of a large heel ulcer. There is edema and enhancement of the calcaneus compatible with osteomyelitis. No drainable fluid collection is seen. 2. Split tear peroneus brevis is again seen. CT Angio Right Lower Extremity: 1. Diffuse atherosclerotic disease without evidence of occlusion. 2. Retrocalcaneal ulcer is seen with locules of gas extending to the cortical surface of the posterior calcaneus. There is questionable cortical erosion along the inferior cortex. If there is concern for osteomyelitis, MRI can be performed. 12/19: Right Calcaneal Ostectomyby Dr. Vince Donaldson 12/21: Status post wound closure by Dr. Vince Donaldson Wound culture: E coli, and Grp B Beta Strep Blood cultures: negative x 5 days R foot drainage culture: E coli, Grp B Beta Strep ID consulted-initially recommended IV Zosyn and Daptomycin x6 weeks , upon further results of C/S, ATB changed to Ertapenem 1 g IV daily x 6 weeks. Will d/w Dr. Vince Donaldson prior to DC who would like to observe patient in the hospital for a few more days Heel to remain offload. Pathology pending for clear margins off of Osteo. 2. History of diabetes: Continue Lantus and sliding scale 3. Status post renal transplant: On mycophenolate 360 mg p.o. b.i.d. and on belatacept 250 mg IV monthly, next due on end of this month. Follow up with transplant center. If needed, will discuss with transplant center about holding anti rejection meds. Per prior attending: -- Discussed with [facility] kidney hospice spiritual care coordinator De- recommend to hold mycophenolate for now, may be held for up to 2 weeks (mycophenolate held 12/18) --12/22/2021: Discussed again with [facility] kidney transplant coordina alejandra Kc, still recommending to hold mycophenolate for now Difficulty patient on or Tuesday for further recommendations regarding mycophenolate and belatacept infusion Pt to f/u with his transplant doctor as OP. #. Other chronic medical conditions: CAD status post stent, sleep apnea on CPAP, HTN, HLD, chronic cough [since cervical vertebral fracture, patient also has some difficulty swallowing once in a while] Continue with/resume home medications as and when appropriate. Hydralazine as needed added for hypertension #. Deep venous thrombosis prophylaxis: Lovenox Admission and Anticipated Discharge Date Admission Date: December 16, 2021 Subjective Patient seen and examined at bedside as a follow-up of nonhealing diabetic foot ulcer on right ankle and osteomyelitis right calcaneus. Patient sitting up in chair, on room air, NAD, no new acute events overnight. Patient denies any fever/headache/chills/chest pain/palpitation/sore throat/cough/belly pain/other review of symptoms. Patient reports eating and moving bowels okay. Physical Exam Physical Exam: GENERAL: Alert and oriented x3. NAD, on RA. HEENT: No pallor, no icterus. Pupils equal, round and reactive to light. Oral mucosa moist. NECK: No JVD, no neck masses. HEART: S1 and S2 heard. Regular rate and rhythm. No murmur, no gallop. RESPIRATORY SYSTEM: Normal AP diameter. No accessory muscle use. No wheezing, no crackles. ABDOMEN: Soft, bowel sounds present, nontender, no distention. CENTRAL NERVOUS SYSTEM: No facial droop. Speech is clear. Obeys simple commands. Moves extremities. EXTREMITIES: No edema, no erythema seen. Rt foot w/ clean dressing w/o soakage noted. Results & Data Results & Data ([facility]) Vital Signs (Past 12 Hours) Vital Signs Temp Pulse Resp BP Pulse Ox 12/23/21 16:01 36.9 C 74 16 124/61 97 12/23/21 08:38 36.8 C 78 16 131/82 95
[2021-12-23] MEDS: TAMSULOSIN HCL 0.4 MG CAP PO SCH (20:53)
[2021-12-23] MEDS: PREGABALIN 150 MG CAP PO SCH (20:53)
[2021-12-23] MEDS: AMITRIPTYLINE HCL 25 MG TAB PO SCH (20:53)
[2021-12-24] MEDS: HEPARIN 100 UNIT/ML 5ML FLUSH FLUSH PRN (06:25)
[2021-12-24 08:50] LABS: Est GFR (Non-African American) 95.8 ml/min
[2021-12-24] MEDS: INSULIN ASPART PER UNIT SC SCH ×4 (09:34→21:06)
[2021-12-24] MEDS: INSULIN GLARGINE SOLOSTAR 100 UNITS/ML 3 ML PEN SC SCH ×2 (09:34→21:06)
[2021-12-24] MEDS: ASPIRIN 81 MG ECTAB PO SCH (09:35)
[2021-12-24] MEDS: FLUTICASONE PROPIONATE NA SPR 16 GM BTL SCH ×2 (09:35→21:04)
[2021-12-24] MEDS: ADVANCED PROBIOTIC 1250 MG CAPSULE PO SCH (09:36)
[2021-12-24] MEDS: ROSUVASTATIN CALCIUM 10 MG TAB PO SCH (09:36)
[2021-12-24] MEDS: dilTIAZem HCL 240 MG CAPCR PO SCH (09:39)
--- NOTE | 2021-12-24 10:13 | Pharmacy Report ---
Pharmacy Glycemic Short Note 2 - Date of Service December 24, 2021 - Glycemic Short BSG Results (Last 24 hours): 12/23/21 12/23/21 12/23/21 12:19 17:00 20:38 POC Glucose 219 H 174 H 160 H 12/24/21 08:05 POC Glucose 121 H OUTPATIENT ANTIDIABETIC REGIMEN: * Lantus 40 units SC BID * Novolog 22 units SC TID (up to 120 units per day) * HbA1c: 9% (12/17/21) ASSESSMENT: 12/24/21: * Ramesh received a total of 126 units of SQ insulin yesterday (80 units Lantus, 46 units novolog) * Fasting BSG continues to improve (248 -> 142 -> 121). I am concerned fasting will continue to trend downward per Lantus dosing is not at steady state. Will decrease dose slightly today. * Yesterday, carb coverage was tightened with breakfast to avoid BSG spike at lunch. Will continue current orders to assess the effect of this change. 12/23/21: * Ramesh received a total of 147 units of SQ insulin yesterday (80 units Lantus, 67 units novolog) * Fasting BSG improved today. Will continue increased dose of Lantus 40 units BID. * Lunch appears to consistently be the highest BSG of the day, therefore I will tighten carb coverage with breakfast only. 12/20/21: * Patient received total of 116 units of insulin yesterday; 60 units basal and 56 units bolus * Fasting BSG today was 132 mg/dl. Started patient on home basal dose of Lantus 40 units BID this AM. This will be an increase from yesterday. * Pre-lunch BSG today was only 182 mg/dl on the Novolog parameters from yesterday. Continued the same today. Background 12/19/21: * NN is a 55 year old male POD 0 s/p right calcaneal ostectomy secondary to sarah betic foot ulcer/osteomyelitis * No intraoperative steroids given * Pharmacy consulted for glycemic management this evening due to poorly controlled BSGs so far this admission * BSG at lunchtime of 328 mg/dL - likely related to significant under-dosing of insulin compared to outpatient doses. Will increase Lantus and significantly tighten Novolog to achieve better glycemic control. * Initially attempted to give 60 units of Lantus at time of consult to equal full daily dose of 80 units, but patient refused and is concerned about going low * He is agreeable to 40 units, so will give 40 units and utilize overnight checks at 00,04 to cover any additional needs PLAN FOR INPATIENT GLYCEMIC CONTROL: * Basal insulin - decrease * Lantus 36 units SQ BID * Bolus insulin * NovoLog per scale ACHS or Q6hrs while NPO * Goal Range: Low 110 mg/dL - High 140 mg/dL Breakfast: * Correction Factor: 10 mg/dL/unit * Nutritional / Prandial insulin per carb ratio of 1 unit per 3 grams CHO consumed Lunch/dinner/HS: * Correction Factor: 10 mg/dL/unit * Nutritional / Prandial insulin per carb ratio of 1 unit per 4 grams CHO consumed
[2021-12-24] MEDS: ERTAPENEM SODIUM 1,000 MG in SYRINGE 0 ML IV SCH (16:28)
--- NOTE | 2021-12-24 17:36 | Hospitalist Progress Note ---
Date of Service December 24, 2021 Assessment & Plan (1) Ulcer of right foot due to type 2 diabetes mellitus: (2) Osteomyelitis: Plan: ASSESSMENT AND PLAN: This is a 55-year-old male who presents with nonhealing diabetic foot ulcer. 1. 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 Ankle MRI: 1. Interval development of a large heel ulcer. There is edema and enhancement of the calcaneus compatible with osteomyelitis. No drainable fluid collection is seen. 2. Split tear peroneus brevis is again seen. CT Angio Right Lower Extremity: 1. Diffuse atherosclerotic disease without evidence of occlusion. 2. Retrocalcaneal ulcer is seen with locules of gas extending to the cortical surface of the posterior calcaneus. There is questionable cortical erosion along the inferior cortex. If there is concern for osteomyelitis, MRI can be performed. 12/19: Right Calcaneal Ostectomyby Dr. Vince Donaldson 12/21: Status post wound closure by Dr. Vince Donaldson Rt Calcaneal Clear margin positive for foci of active inflammation Wound culture: E coli, and Grp B Beta Strep Blood cultures: negative x 5 days R foot drainage culture: E coli, Grp B Beta Strep ID consulted-initially recommended IV Zosyn and Daptomycin x6 weeks , upon further results of C/S, ATB changed to Ertapenem 1 g IV daily x 6 weeks. D/w Dr. Vince Donaldson 12/24 , wound getting better, possible DC on Tuesday. Heel to remain offload. 2. History of diabetes: Continue Lantus and sliding scale 3. Status post renal transplant: On mycophenolate 360 mg p.o. b.i.d. and on belatacept 250 mg IV monthly, next due on end of this month. Follow up with transplant center. If needed, will discuss with transplant center about holding anti rejection meds. Per prior attending: -- Discussed with [facility] kidney instructional technology coordinator De- recommend to hold mycophenolate for now, may be held for up to 2 weeks (mycophenolate held 12/18) --12/22/2021: Discussed again with [facility] kidney instructional technology coordinator De, still recommending to hold mycophenolate for now Difficulty patient on or Tuesday for further recommendations regarding mycophenolate and belatacept infusion Pt to f/u with his transplant doctor as OP. #. Other chronic medical conditions: CAD status post stent, sleep apnea on CPAP, HTN, HLD, chronic cough [since cervical vertebral fracture, patient also has some difficulty swallowing once in a while] Continue with/resume home medications as and when appropriate. Hydralazine as needed added for hypertension #. Deep venous thrombosis prophylaxis: Lovenox Admission and Anticipated Discharge Date Admission Date: December 16, 2021 Subjective Patient seen and examined at bedside as a follow-up of nonhealing diabetic foot ulcer on right ankle and osteomyelitis right calcaneus. Patient sitting up in bed, on room air, NAD, no new acute events overnight. Patient denies any fever/headache/chills/chest pain/palpitation/sore throat/cough/belly pain/other review of symptoms. Patient reports eating and moving bowels okay. Physical Exam Physical Exam: GENERAL: Alert and oriented x3. NAD, on RA. HEENT: No pallor, no icterus. Pupils equal, round and reactive to light. Oral mucosa moist. NECK: No JVD, no neck masses. HEART: S1 and S2 heard. Regular rate and rhythm. No murmur, no gallop. RESPIRATORY SYSTEM: Normal AP diameter. No accessory muscle use. No wheezing, no crackles. ABDOMEN: Soft, bowel sounds present, nontender, no distention. CENTRAL NERVOUS SYSTEM: No facial droop. Speech is clear. Obeys simple commands. Moves extremities. EXTREMITIES: No edema, no erythema seen. Rt foot w/ clean dressing w/o soakage noted. Results & Data Results & Data ([facility]) Vital Signs (Past 12 Hours) Vital Signs Temp Pulse Resp BP Pulse Ox 12/24/21 15:22 36.6 C 76 17 136/79 96 12/24/21 07:27 36.7 C 73 17 144/78 H 97
[2021-12-24] MEDS: ENOXAPARIN INJ 40 MG/0.4 ML SYR SQ SCH (17:53)
[2021-12-24] MEDS: PREGABALIN 150 MG CAP PO SCH (21:05)
[2021-12-24] MEDS: TAMSULOSIN HCL 0.4 MG CAP PO SCH (21:05)
[2021-12-24] MEDS: AMITRIPTYLINE HCL 25 MG TAB PO SCH (21:05)
--- NOTE | 2021-12-24 21:27 | Orthopedic Consultation ---
Date of Consultation December 24, 2021 Assessment & Plan (1) Osteomyelitis: ID consulted-initially recommended IV Zosyn and Daptomycin x6 weeks , upon further results of C/S, ATB changed to Ertapenem 1 g IV daily x 6 weeks. (2) Ulcer of right foot due to type 2 diabetes mellitus: Plan for discharge Tuesday12/26/21 Patient is to continue non-weight bearing to Right foot. Home health will provide dressing changes upon discharge M, W, F Dressing change to include AG aquacel, 4x4s, ABD, Kerlix, Jorge. Patient will follow up in office 01/01/[address] [place] [address] History of Present Illness Attending Physician: Coreen Benton MD History of Present Illness Patient status post excision of wound, calcaneal ostectomy (DOS 12/19/21), followed by rotation skin plasty (DOS 12/21/21). Allergies Allergy/AdvReac Type Severity Reaction Status Date / Time ondansetron Allergy Intermediate confusion Unverified 12/16/21 19:21 bee venom protein (honey bee) Allergy Unknown SHORTNESS Verified 12/16/21 19:21 OF BREATH Home Medications Medication Instructions Recorded Confirmed Type amitriptyline 25 mg tablet 25 mg PO HS 09/11/19 12/16/21 History aspirin 81 mg tablet,delayed 81 mg PO QAM 09/11/19 12/16/21 History release (Aspirin Low Dose) epinephrine 0.3 mg/0.3 mL 0.3 mg SUBCUT UD PRN 09/11/19 12/16/21 History injection, auto-injector (EpiPen) insulin glargine 100 unit/mL (3 40 unit SUBCUT BID 09/11/19 12/16/21 History mL) subcutaneous pen (Basaglar KwikPen U-100 Insulin) insulin lispro 100 unit/mL 22 unit SUBCUT AC MDD 100 units 09/11/19 12/16/21 History subcutaneous pen (Humalog KwikPen per day (U-100) Insulin) rosuvastatin 20 mg tablet (Crestor) 10 mg PO QAM 09/11/19 12/16/21 History tamsulosin 0.4 mg capsule (Flomax) 0.4 mg PO HS 09/11/19 12/16/21 History diltiazem HCl 240 mg 240 mg PO QAM 05/29/20 12/16/21 History capsule,extended release 24 hr belatacept 250 mg intravenous 250 mg IV MONTHLY #0 05/30/20 12/16/21 History solution mycophenolate sodium 180 mg 360 mg PO BID 05/30/20 12/16/21 History tablet,delayed release pregabalin 150 mg capsule 150 mg PO PM 05/30/20 12/16/21 History acetaminophen 325 mg tablet 650 mg PO QID PRN 11/19/21 12/16/21 History (Tylenol) fluticasone propionate 50 1 spray NA BID 30 Days #1 g 11/21/21 12/16/21 Rx mcg/actuation nasal spray,suspension collagenase clostridium histo. 250 1 applic TOPICAL UD 12/16/21 12/16/21 History unit/gram topical ointment (Santyl) sildenafil 25 mg tablet 25 mg PO UD PRN 12/16/21 12/16/21 History ertapenem 1 gram solution for 1 g IV DAILY 40 Days #40 ea 12/22/21 Rx injection Patient History Medical History Diabetes Gastroparesis History of peritoneal dialysis Hypertension Surgical History Hx of kidney transplant September 2017 [facility] Family History Other Family history non-contributory Social History Smoking Status: Never smoker Hx Alcohol Use: Yes Alcohol type: other Hx Substance Use: No Preferred Language: [place] Communication Ability: Effective Clinical Care Manager Required: No Beliefs That Will Affect Care: None marital status: Current Living Situation: Family Other Information That Helps Us Care for You: No Feels Safe at Home: Yes Safety Concerns: Feels Safe At This Time Assistive Devices: Glasses Results & Data ([facility]) Vital Signs (Past 12 Hours) Vital Signs Temp Pulse Resp BP Pulse Ox 12/24/21 15:22 36.6 C 76 17 136/79 96 Diagnostic Findings FINAL DIAGNOSIS A. Bone, right calcaneal, ostectomy: - Prominent acute osteomyelitis B. Bone, right calcaneal clear margin, ostectomy: - Rare small foci of active inflammation - Periosteal active inflammation at 0966.
[2021-12-25] MEDS: FLUTICASONE PROPIONATE NA SPR 16 GM BTL SCH ×2 (09:10→20:43)
[2021-12-25] MEDS: ASPIRIN 81 MG ECTAB PO SCH (09:10)
[2021-12-25] MEDS: dilTIAZem HCL 240 MG CAPCR PO SCH (09:10)
[2021-12-25] MEDS: ROSUVASTATIN CALCIUM 10 MG TAB PO SCH (09:11)
[2021-12-25] MEDS: ADVANCED PROBIOTIC 1250 MG CAPSULE PO SCH (09:11)
[2021-12-25] MEDS: INSULIN GLARGINE SOLOSTAR 100 UNITS/ML 3 ML PEN SC SCH ×2 (09:12→21:37)
[2021-12-25] MEDS: INSULIN ASPART PER UNIT SC SCH ×4 (09:17→21:38)
[2021-12-25] MEDS: ERTAPENEM SODIUM 1,000 MG in SYRINGE 0 ML IV SCH (13:18)
[2021-12-25] MEDS: HEPARIN 100 UNIT/ML 5ML FLUSH FLUSH PRN (13:19)
--- NOTE | 2021-12-25 16:12 | Hospitalist Progress Note ---
Date of Service December 25, 2021 Assessment & Plan (1) Ulcer of right foot due to type 2 diabetes mellitus: (2) Osteomyelitis: Plan: ASSESSMENT AND PLAN: This is a 55-year-old male who presents with nonhealing diabetic foot ulcer. 1. 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 Ankle MRI: 1. Interval development of a large heel ulcer. There is edema and enhancement of the calcaneus compatible with osteomyelitis. No drainable fluid collection is seen. 2. Split tear peroneus brevis is again seen. CT Angio Right Lower Extremity: 1. Diffuse atherosclerotic disease without evidence of occlusion. 2. Retrocalcaneal ulcer is seen with locules of gas extending to the cortical surface of the posterior calcaneus. There is questionable cortical erosion along the inferior cortex. If there is concern for osteomyelitis, MRI can be performed. 12/19: Right Calcaneal Ostectomyby Dr. Vince Donaldson 12/21: Status post wound closure by Dr. Vince Donaldson Rt Calcaneal Clear margin positive for foci of active inflammation Wound culture: E coli, and Grp B Beta Strep Blood cultures: negative x 5 days R foot drainage culture: E coli, Grp B Beta Strep ID consulted-initially recommended IV Zosyn and Daptomycin x6 weeks , upon further results of C/S, ATB changed to Ertapenem 1 g IV daily x 6 weeks. D/w Dr. Vince Donaldson 12/24 , wound getting better, DC tomorrow. Heel to remain offload. 2. History of diabetes: Continue Lantus and sliding scale 3. Status post renal transplant: On mycophenolate 360 mg p.o. b.i.d. and on belatacept 250 mg IV monthly, next due on end of this month. Follow up with transplant center. If needed, will discuss with transplant center about holding anti rejection meds. Per prior attending: -- Discussed with [facility] kidney district sales coordinator De-recomme nd to hold mycophenolate for now, may be held for up to 2 weeks (mycophenolate held 12/18) --12/22/2021: Discussed again with [facility] kidney district sales coordinator De, still recommending to hold mycophenolate for now Difficulty patient on or Tuesday for further recommendations regarding mycophenolate and belatacept infusion Pt to f/u with his transplant doctor as OP. #. Other chronic medical conditions: CAD status post stent, sleep apnea on CPAP, HTN, HLD, chronic cough [since cervical vertebral fracture, patient also has some difficulty swallowing once in a while] Continue with/resume home medications as and when appropriate. Hydralazine as needed added for hypertension #. Deep venous thrombosis prophylaxis: Lovenox Admission and Anticipated Discharge Date Admission Date: December 16, 2021 Subjective Patient seen and examined at bedside as a follow-up of nonhealing diabetic foot ulcer on right ankle and osteomyelitis right calcaneus. Patient lying in bed, on room air, NAD, no new acute events overnight. Patient denies any fever/headache/chills/chest pain/palpitation/sore throat/cough/belly pain/other review of symptoms. Patient reports eating and moving bowels okay. Physical Exam Physical Exam: GENERAL: Alert and oriented x3. NAD, on RA. HEENT: No pallor, no icterus. Pupils equal, round and reactive to light. Oral mucosa moist. NECK: No JVD, no neck masses. HEART: S1 and S2 heard. Regular rate and rhythm. No murmur, no gallop. RESPIRATORY SYSTEM: Normal AP diameter. No accessory muscle use. No wheezing, no crackles. ABDOMEN: Soft, bowel sounds present, nontender, no distention. CENTRAL NERVOUS SYSTEM: No facial droop. Speech is clear. Obeys simple commands. Moves extremities. EXTREMITIES: No edema, no erythema seen. Rt foot w/ clean dressing w/o soakage noted. Results & Data Results & Data ([facility]) Vital Signs (Past 12 Hours) Vital Signs Temp Pulse Pulse Resp BP Pulse Ox 12/25/21 16:04 37.2 C 79 16 121/69 95 12/25/21 11:55 36.7 C 81 15 106/64 97 12/25/21 09:09 75 123/70 12/25/21 07:45 36.6 C 73 14 118/68 96
[2021-12-25] MEDS: ENOXAPARIN INJ 40 MG/0.4 ML SYR SQ SCH (17:53)
[2021-12-25] MEDS: TAMSULOSIN HCL 0.4 MG CAP PO SCH (20:43)
[2021-12-25] MEDS: AMITRIPTYLINE HCL 25 MG TAB PO SCH (20:43)
[2021-12-25] MEDS: PREGABALIN 150 MG CAP PO SCH (20:43)
[2021-12-26] MEDS: ASPIRIN 81 MG ECTAB PO SCH (08:29)
[2021-12-26] MEDS: ROSUVASTATIN CALCIUM 10 MG TAB PO SCH (08:29)
[2021-12-26] MEDS: dilTIAZem HCL 240 MG CAPCR PO SCH (08:30)
[2021-12-26] MEDS: ADVANCED PROBIOTIC 1250 MG CAPSULE PO SCH (08:30)
[2021-12-26] MEDS: INSULIN GLARGINE SOLOSTAR 100 UNITS/ML 3 ML PEN SC SCH (08:31)
[2021-12-26] MEDS: FLUTICASONE PROPIONATE NA SPR 16 GM BTL SCH (08:31)
[2021-12-26] MEDS: INSULIN ASPART PER UNIT SC SCH (08:37)
--- NOTE | 2021-12-26 09:30 | XRay Report ---
XR foot RT min 3V routine CLINICAL HISTORY: post operative. Status post partial calcaneal resection for osteomyelitis. COMPARISON STUDY: 12/16/2021 TECHNIQUE: 3 right foot views FINDINGS: Bones: Compared to the previous examination, there has been partial resection of the posterior calcan eus inferiorly at the site of osteomyelitis. Antibiotic beads are in place. There is associated fract ure of the calcaneus extending into the posterior facet with loss of Boehler's angle. The remaining imaged bones of the foot are intact. There is no lytic or blastic lesion. Joints: Joint space narrowing and degenerative changes are seen involving the IP joints and MTP joint s. The bones are in anatomic alignment. Soft tissues: There is soft tissue deformity present posteriorly related to patient's surgery. A drai n is also in place. There is no radiopaque foreign body. IMPRESSION: 1. Status post partial calcaneal resection at site of osteomyelitis. 2. Antibiotic beads are in place. 3. There is also a fracture of the posterior facet of the calcaneus with loss of Boehler's angle. 4. Soft tissue deformity is seen at the surgical site with a drain in place. ACT 112: Negative or not required by law. Electronically signed by: Aquiles Santos M.D. 12/26/2021 9:28 AM
[2021-12-26] MEDS: ERTAPENEM SODIUM 1,000 MG in SYRINGE 0 ML IV SCH (10:10)
--- NOTE | 2021-12-26 12:32 | Discharge Summary ---
Date of Service December 26, 2021 Admission HPI Per Admitting Provider CHIEF COMPLAINT: Nonhealing diabetic foot ulcer. HISTORY OF PRESENT ILLNESS: This is a 55-year-old male with past medical history significant for type 2 diabetes, diabetic retinopathy, history of severe sleep apnea, history of CAD s/p stent placement, hypertension, orthostatic hypertension, history of multiple closed fractures of cervical vertebrae, peripheral neuropathic pain, history of syncope and collapse, tobacco use disorder, history of kidney transplant,Presents with nonhealing diabetic foot ulcer. The patient was here in the hospital on 11/19/2021. At that time also, was found to have right ankle wound. He said he was having the wound one week prior to that and was treated with antibiotics last admission for about 2 weeks, following with the wound clinic. He was not getting better. Having foul smelling and black in color and was advised to come to the hospital. Seen by the Podiatry in the ER and recommended CTA of the right lower extremity and also vascular surgery consult. Also had MRI of the right foot. The patient says he could not feel much in his leg, so could not feel much pain. Supposed to not put weight on the leg, but he is ambulating with a cane. Denies any fever or chills. No headache, no blurred visions. Has some runny nose, but nothing constant, has some occasional cough. He has some ongoing issues with difficulty swallowing. He says he has cough since he had the cervical fracture and also has some difficulty swallowing once in a while. Appetite is okay. No chest pain or shortness of breath. No nausea, no vomiting, no abdominal pain. Normal bowel and bladder movements. Currently, resting comfortably and hemodynamically stable. ALLERGIES: ZOFRAN, BEE VENOM. PAST MEDICAL HISTORY: As mentioned above. PAST SURGICAL HISTORY: Cystoscopy, full dental extractions, injection of the eye drug, insertion of tunneled catheter, cataract surgery, cardiac stent, removal of inner eye fluid, transplantation of the kidney. MEDICATIONS: The patient is on Tylenol 650 mg p.o. q.i.d. p.r.n., amitriptyline 25 mg p.o. at bedtime, aspirin 81 mg p.o. a.m., Basaglar insulin 40 units subcutaneous b.i.d., belatacept 250 mg IV monthly, Santyl topical p.r.n., diltiazem 240 mg p.o. a.m., epinephrine p.r.n., Flonase b.i.d. p.r.n., insulin lispro 22 units subcutaneously a.c., mycophenolate sodium 360 mg p.o. b.i.d., pregabalin 150 mg p.o. p.m., Crestor 10 mg p.o. a.m., Flomax 0.4 mg p.o. at bedtime. FAMILY HISTORY: Significant for father had colorectal cancer; mother has diabetes, heart disorder; father has heart disorder; brother has heart disorder. SOCIAL HISTORY: . No smoking, no alcohol, no drug use. REVIEW OF SYSTEMS: As per HPI. Rest of the review of systems is negative. Admission Exam Per Admitting Provider GENERAL: The patient is alert and oriented, not in acute distress. VITAL SIGNS: Temperature 36.9, pulse 94, respiratory rate 18, blood pressure 109/67, oxygen 99% on room air. HEENT: Pupils equal, round and reactive to light. Oral mucosa moist. NECK: No JVD or neck masses. CARDIOVASCULAR: S1 and S2 heard. Regular rate and rhythm. No murmur, no gallop. RESPIRATORY SYSTEM: Normal AP diameter. No accessory muscle use. No wheezing, no crackles. ABDOMEN: Soft, bowel sounds present, nontender, no distention. CENTRAL NERVOUS SYSTEM: Cranial nerves II-XII grossly intact, nonfocal. EXTREMITIES: Right ankle in the posterior aspect, foul smelling dark colored deep ulcer seen. 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 NAD, on RA. HEENT: No pallor, no icterus. Pupils equal, round and reactive to light. Oral mucosa moist. NECK: No JVD, no neck masses. HEART: S1 and S2 heard. Regular rate and rhythm. No murmur, no gallop. RESPIRATORY SYSTEM: Normal AP diameter. No accessory muscle use. No wheezing, no crackles. ABDOMEN: Soft, bowel sounds present, nontender, no distention. CENTRAL NERVOUS SYSTEM: No facial droop. Speech is clear. Obeys simple commands. Moves extremities. EXTREMITIES: No edema, no erythema seen. Rt foot w/ clean dressing w/o soakage noted. Discharge Data Allergies Allergy/AdvReac Type Severity Reaction Status Date / Time ondansetron Allergy Intermediate confusion Unverified 12/16/21 19:21 bee venom protein (honey bee) Allergy Unknown SHORTNESS Verified 12/16/21 19:21 OF BREATH Consultations 12/16/21 21:06 Consult Podiatry Stat 12/16/21 21:11 ED Decision to Admit Stat 12/17/21 08:00 Consult Vascular Surgery Routine 12/17/21 14:40 Consult Infectious Diseases Routine Procedures Performed Operation Date: 12/18/21 10:20 <No data on this case meets the specified criteria> Operation Date: 12/19/21 07:30 Actual Procedures p Right Calcaneal Ostectomy - Vince Donaldson DPM, MS Operation Date: 12/21/21 08:20 Actual Procedures p Right Foot Rotation Skin Plasty Delayed Primary Closure(Right) - Vince Donaldson DPM, MS Ordered Studies 12/16/21 21:09 CT angio LE RT w inc wo if don Urgent 12/16/21 23:03 MR ankle RT wo/w con Urgent Hospital Course (1) Ulcer of right foot due to type 2 diabetes mellitus: (2) Osteomyelitis: ASSESSMENT AND PLAN: This is a 55-year-old male who presents with nonhealing diabetic foot ulcer. He was managed for the following while in [facility]: 1. 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 Ankle MRI: 1. Interval development of a large heel ulcer. There is edema and enhancement of the calcaneus compatible with osteomyelitis. No drainable fluid collection is seen. 2. Split tear peroneus brevis is again seen. CT Angio Right Lower Extremity: 1. Diffuse atherosclerotic disease without evidence of occlusion. 2. Retrocalcaneal ulcer is seen with locules of gas extending to the cortical surface of the posterior calcaneus. There is questionable cortical erosion along the inferior cortex. If there is concern for osteomyelitis, MRI can be performed. 12/19: Right Calcaneal Ostectomyby Dr. Vince Donaldson 12/21: Status post wound closure by Dr. Vince Donaldson Rt Calcaneal Clear margin positive for foci of active inflammation Wound culture: E coli, and Grp B Beta Strep Blood cultures: negative x 5 days R foot drainage culture: E coli, Grp B Beta Strep ID consulted-initially recommended IV Zosyn and Daptomycin x6 weeks , upon further results of C/S, ATB changed to Ertapenem 1 g IV daily x 6 weeks. D/w Dr. Vince Donaldson 12/24 , wound getting better, DC tomorrow. Heel to remain offload. 2. History of diabetes: Continue Lantus and sliding scale 3. Status post renal transplant: On mycophenolate 360 mg p.o. b.i.d. and on belatacept 250 mg IV monthly, next due on end of this month. Follow up with transplant center. If needed, will discuss with transplant center about holding anti rejection meds. Per prior attending: -- Discussed with [facility] kidney tissue coordinator De- recommend to hold mycophenolate for now, may be held for up to 2 weeks (mycophenolate held 12/18) --12/22/2021: Discussed again with [facility] kidney tissue coordinator De, still recommending to hold mycophenolate for now Difficulty patient on or Tuesday for further recommendations regarding mycophenolate and belatacept infusion Pt to f/u with his transplant doctor as OP. #. Other chronic medical conditions: CAD status post stent, sleep apnea on CPAP, HTN, HLD, chronic cough [since cervical vertebral fracture, patient also has some difficulty swallowing once in a while] Continue with/resume home medications as and when appropriate. Hydralazine as needed added for hypertension #. Deep venous thrombosis prophylaxis: Lovenox Following instructions were communicated to the patient at the point of dis charge: Follow-up with your primary care physician within a week time. Nonweightbearing to your right foot until seen and evaluated by your podiatry which is a scheduled on January 01, 2022. Continue with IV antibiotics ertapenem started on 12/22/2021 for total of 6 weeks, follow-up with infectious disease doctor prior to completion of your IV antibiotic course for evaluation and management. Since you are on prolonged IV antibiotic, you will need periodic renal, hepatic and hematopoietic assessment; coordinate with your primary care physician for ongoing monitoring while on antibiotic. Since your diabetes is poorly controlled, advise close follow-up with [facility] clinic or establish endocrinology as an outpatient as discussed at the bedside. Follow-up with your transplant doctor, upon discharge your mycophenolate has been on hold per discussion with your transplant doctor while you were inpatient. F/u with them regarding resuming this medication as discussed at the bedside. Take medications as prescribed. 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 Nonweightbearing to your right foot until seen and evaluated by your podiatry which is a scheduled on January 01, 2022. Continue with IV antibiotics ertapenem started on 12/22/2021 for total of 6 weeks, follow-up with infectious disease doctor prior to completion of your IV antibiotic course for evaluation and management. Since you are on prolonged IV antibiotic, you will need periodic renal, hepatic and hematopoietic assessment; coordinate with your primary care physician for ongoing monitoring while on antibiotic. Since your diabetes is poorly controlled, advise close follow-up with [facility] clinic or establish endocrinology as an outpatient as discussed at the bedside. Follow-up with your transplant doctor, upon discharge your mycophenolate has been on hold per discussion with your transplant doctor while you were inpatient. F/u with them regarding resuming this medication as discussed at the bedside. Take medications as prescribed. Addtl Color Tester Provider Instructions: Instructions per podiatry: Patient is to continue non-weight bearing to Right foot. Home health will provide dressing changes upon discharge M, W, F Dressing change to include AG aquacel, 4x4s, ABD, Kerlix, Jorge. Patient will follow up in office 01/01/[address] [place] [address] Pending Studies at Discharge: No Stand-Alone Forms: Dsg.nr, Smoking Cessation Medications and DC Order Prescriptions: New ertapenem 1 gram recon soln 1 g IV DAILY 40 Days Qty: 40 RF: 0 Advanced Probiotic 625 mg (10 billion cell) Capsule 2 cap PO DAILY 40 Days Qty: 80 RF: 0 polyethylene glycol 3350 [Miralax] 17 gram Powder In Packet 17 g PO DAILY PRN (Reason: constipation) Qty: 30 RF: 0 Continued aspirin [Aspirin Low Dose] 81 mg Tablet,Delayed Release (Dr/Ec) 81 mg PO QAM RF: 0 amitriptyline 25 mg tablet 25 mg PO HS RF: 0 tamsulosin [Flomax] 0.4 mg capsule 0.4 mg PO HS RF: 0 epinephrine [EpiPen] 0.3 mg/0.3 mL auto-injector 0.3 mg subcut UD PRN (Reason: Anaphylaxis) RF: 0 rosuvastatin [Crestor] 20 mg tablet 10 mg PO QAM RF: 0 Basaglar KwikPen U-100 Insulin 100 unit/mL (3 mL) insulin pen 40 unit SUBCUT BID RF: 0 insulin lispro [Humalog KwikPen Insulin] 100 unit/mL insulin pen 22 unit SUBCUT AC MDD 100 units per day RF: 0 diltiazem HCl 240 mg capsule,extended release 24hr 240 mg PO QAM RF: 0 pregabalin 150 mg capsule 150 mg PO PM RF: 0 belatacept 250 mg Recon Soln 250 mg IV MONTHLY Qty: 0 RF: 0 sildenafil 25 mg tablet 25 mg PO UD PRN (Reason: Edema) RF: 0 Santyl 250 unit/gram ointment 1 applic TOPICAL UD RF: 0 acetaminophen [Tylenol] 325 mg Tablet 650 mg PO QID PRN (Reason: Fever) RF: 0 fluticasone propionate 50 mcg/actuation Gates,Suspension 1 spray NA BID 30 Days Qty: 1 RF: 1 Discontinued mycophenolate sodium 180 mg tablet,delayed release (DR/EC) 360 mg PO BID RF: 0 Discharge Orders: Discharge Order (Routine); Ordered 12/26/21 Ordered By: Coreen Liriano/Other Patient Handouts: Diabetes Foot Infections Tx Admission Data Admit Date/Time: 12/16/21 23:02 Attending Provider: Coreen Benton Admit Provider: Sloan Figueroa Primary Care Provider: Kelvin Schulte Other Providers: Rikki Poole [facility] ; Vince Donaldson ; Sloan Figueroa ; Tevin Sánchez ; Vikram Gee ; Siddharth Rogers ; Sonny Clark I. ; Florin Bermudez II ; Danay Casanova ; Dong Corona ; Elier Yoo Other Interventions: Discharge Summary Assessment (RN) Last Done: 12/26/21 11:58
== END 2021-12-26 12:42 | disposition home health service (06) | DRG 623 ==
LOC: ED 18:00 → 3N 23:02 → SUATTDRO 23:02 → 3N 12-17 03:49

== ENCOUNTER 2022-04-14 18:52 | Inpatient (IN) ==
[2022-04-14 19:49] LABS: Appearance Urine Clear (Clear); Bilirubin Urine Negative (Negative); Blood Urine Negative (Negative); Color Urine Yellow; Glucose Urine UA 2+ (Negative); Ketones Urine Trace (Negative); Leukocyte Esterase Urine Negative (Negative); Nitrite Urine Negative (Negative); Protein Urine Negative (Negative); Specific Gravity Urine 1.013 (1.000-1.030); Urobilinogen Urine Negative (Negative); pH Urine 5.5 (4.5-7.5)
[2022-04-14] MEDS ORDERED: ERTAPENEM SODIUM 10 ML IV STA (20:28)
--- NOTE | 2022-04-14 20:32 | Emergency Department Note ---
Impression & Plan Infected surgical wound, Immunocompromised, Osteomyelitis, Failure of outpatient treatment ED Provider Note NAME: MIRZA GILES AGE: 56 SEX: M : 1965 ARRIVES VIA: Walk-In INFORMANT: [Patient] ED PROVIDER(S): [Mendoza Monteiro MD] CHIEF COMPLAINT: Infection HISTORY OF PRESENT ILLNESS: Patient is a 56-year-old male who is immunocompromised from a renal transplant. He developed osteomyelitis in his right heel and had surgical work. The patient states that 3 months ago, he had a procedure to extend the length of his Achilles tendon. The patient states that for 6 weeks, really since the fixator was removed, he had drainage from the areas where the last surgery was performed. He has been on clindamycin for 2 weeks. The patient states that things are no better, there is some erythema and he has some puslike drainage from one of the sites. There has been no fever, no chills. No cough or congestion or chest pain. There has been no shortness of breath. Dr. Donaldson, his head of drama, sent him in for evaluation. Of note, the patient has done well with ertapenem in the past. REVIEW OF SYSTEMS: See HPI for pertinent positives and negatives. A total of ten systems were reviewed and were otherwise negative. PMHx/PSHx: See Below SOCIAL HISTORY: See Below. PHYSICAL EXAM: GENERAL: Patient is in no acute distress. HEENT: No acute trauma, normocephalic atraumatic, mucous membranes moist, no nasal congestion, no scleral icterus. NECK: No stridor, no adenopathy, no meningismus, trachea is midline. LUNGS: Clear to auscultation bilaterally, no wheeze, no rhonchi, breath sounds equal. HEART: Subtle systolic murmur, regular rate and rhythm. ABDOMEN: Soft, nontender, bowel sounds positive, no peritonitis. EXTREMITIES: No cyanosis. The patient does have some purulent drainage from the most superior incision to the posterior aspect of the leg near the Achilles. A culture was obtained. There is some surrounding erythema. There is healing of the tissue where he had the left calcaneal surgery. NEUROLOGIC: Oriented x 3, no acute motor or sensory deficits, no focal weakness. SKIN: No rash, no jaundice, no diaphoresis. DIFFERENTIAL DIAGNOSIS: Osteomyelitis, abscess, cellulitis, immunocompromise, tenosynovitis, failed outpatient management, among others. EMERGENCY DEPARTMENT COURSE/PROCEDURES: MEDICAL DECISION MAKING: No leukocytosis. The patient does not demonstrate a mild anemia with a hemoglobin of 11. The anemia is baseline for the patient. There is a normal platelet count. No concerning coagulopathy. No significant electrolyte abnormality or renal failure, no concerning liver enzyme elevation. Lactic acid level is not elevated making severe sepsis less likely. Urinalysis does not show infection. COVID test returned negative. Right foot CT does show acute versus subacute osteomyelitis as well as infection around the Achilles. Some fractures were seen. Some of the fractures had been fixed, some were not fixed. Patient was given IV ertapenem for his infection. He has done well on this medication before. I did send a culture of the wound drainage, the results are pending. The patient is in need of hospital stay. He has a surgical wound infection, he has osteomyelitis. He is immunocompromised and has failed outpatient treatment. I spoke with the patient and case management. The on-call hospitalist was consulted. 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 Beliefs That Will Affect Care: None marital status: Current Living Situation: Family Feels Safe at Home: Yes Assistive Devices: Walker Allergies Allergies Allergy/AdvReac Type Severity Reaction Status Date / Time ondansetron Allergy Intermediate confusion Unverified 04/14/22 22:47 bee venom protein (honey bee) Allergy Unknown SHORTNESS Verified 04/14/22 22:47 OF BREATH Home Meds Home Medications Medication Instructions Recorded Confirmed amitriptyline 25 mg tablet 25 mg PO HS 09/11/19 04/14/22 aspirin 81 mg tablet,delayed 81 mg PO QAM 09/11/19 04/14/22 release (Alejo Low Dose Aspirin) epinephrine 0.3 mg/0.3 mL 0.3 mg subcut UD PRN Anaphylaxis 09/11/19 04/14/22 injection, auto-injector (EpiPen) insulin glargine 100 unit/mL (3 48 unit subcut BID 09/11/19 04/14/22 mL) subcutaneous pen (Basaglar KwikPen U-100 Insulin) insulin lispro 100 unit/mL 26 unit subcut AC 09/11/19 04/14/22 subcutaneous pen (Humalog KwikPen (U-100) Insulin) rosuvastatin 20 mg tablet (Crestor) 10 mg PO QAM 09/11/19 04/14/22 tamsulosin 0.4 mg capsule (Flomax) 0.4 mg PO HS 09/11/19 04/14/22 diltiazem HCl 240 mg 240 mg PO QAM 05/29/20 04/14/22 capsule,extended release 24 hr belatacept 250 mg intravenous 250 mg IV MONTHLY ##0 05/30/20 04/14/22 solution pregabalin 150 mg capsule 150 mg PO PM 05/30/20 04/14/22 acetaminophen 325 mg tablet 650 mg PO QID PRN Fever 11/19/21 04/14/22 (Tylenol) sildenafil 25 mg tablet 25 mg PO UD PRN Edema 12/16/21 04/14/22 clindamycin HCl 300 mg capsule 300 mg PO QID 04/14/22 04/14/22 mycophenolate sodium 180 mg 360 mg PO BID 04/14/22 04/14/22 tablet,delayed release Previous Rx's Medication Instructions Recorded lactobacillus combination no.4 3 3,000 mmu cells PO DAILY #80 caps 12/26/21 billion cell capsule (Probiotic) polyethylene glycol 3350 17 gram 17 g PO DAILY PRN constipation #30 12/26/21 oral powder packet (Miralax) ea Results & Data (ED) Vital Signs Vital Signs - 24 hr 04/14/22 19:10 04/14/22 21:20 04/14/22 23:04 Temperature 37.1 C Temperature Source Temporal Artery Scan Pulse Rate 78 Respiratory Rate 19 18 Respiratory Effort / Characteristics Non-Labored Non-Labored Respiratory Depth Normal Blood Pressure 108/63 Blood Pressure [Right Arm] 136/61 Blood Pressure Mean 78 Blood Pressure Mean [Right Arm] 86 Pulse Oximetry 96 96 Oxygen Delivery Method Room Air Room Air Sepsis Recent Fever Within 48 Hours No Sepsis New/Unexplained Change in Mental Status N/A Sepsis Action Taken by Nursing No Action Required Home Medications Current Medication List: was personally reviewed by me Laboratory Data Attestation: I reviewed the patient's lab results. Result diagrams: 04/14/22 20:35 04/14/22 20:35 Lab Results 04/14/22 04/14/22 04/14/22 Range/Units 20:35 20:35 20:35 WBC 6.27 (4.8-10.8) K/ul RBC 4.31 L (4.63-6.08) M/uL Hgb 11.1 L (14.0-18.0) g/dl Hct 35.2 L (40.1-51.0) % MCV 81.7 (80.0-100.0) fL MCH 25.8 (25.0-34.0) pg MCHC 31.5 L (32.0-36.0) g/dL RDW Std Deviation 48.4 H (36.4-46.3) fL RDW Coeff of Dandre 16.2 H (11.5-14.5) % Plt Count 318 (130-400) K/uL MPV 9.6 (9.4-12.4) fL Immature Gran % (Auto) 2.4 % Neut % (Auto) 56.7 % Lymph % (Auto) 27.4 % Wallace % (Auto) 10.5 % Eos % (Auto) 2.7 % Baso % (Auto) 0.3 % Neut # (Auto) 3.55 (1.4-6.5) K/uL Lymph # (Auto) 1.72 (1.2-3.4) K/uL Wallace # (Auto) 0.66 (0.24-0.82) K/uL Eos # (Auto) 0.17 (0-0.50) K/uL Baso # (Auto) 0.02 (0-0.2) K/uL Immature Gran # (Auto) 0.15 H (0.00-0.02) K/uL PT 11.7 (9.0-12.0) Seconds INR 1.1 (0.9-1.1) APTT 32.5 H (21.0-31.0) Seconds PTT Ratio 1.2 Sodium 134 L (136-145) mmol/L Potassium 4.2 (3.5-5.1) mmol/L Chloride 104 (98-107) mmol/L Carbon Dioxide 22 (21-32) mmol/L Anion Gap 8 (3-11) BUN 17 (6-23) mg/dl Creatinine 1.24 (0.6-1.4) mg/dl Est Cr Clr Drug Dosing 90.3 ml/min Est GFR ( Amer) 74.3 ml/min Est GFR (Non-Af Amer) 64.1 ml/min BUN/Creatinine Ratio 13.7 (10-20) Glucose 144 H (70-99(Fasting)) mg/dl Lactate (0.4-2.0) mmol/L Calcium 9.4 (8.5-10.1) mg/dl Magnesium 1.8 (1.7-2.4) mg/dl Total Bilirubin 0.3 (0.2-1.0) mg/dl AST 11 L (13-39) U/L ALT 9 (7-52) U/L Alkaline Phosphatase 73 (34-104) U/L Total Protein 6.6 (6.0-8.3) gm/dl Albumin 3.5 (3.4-5.0) gm/dl Globulin 3.1 (2.5-4.0) gm/dl Albumin/Globulin Ratio 1.1 (0.9-2) Urine Color Urine Appearance (Clear) Urine pH (4.5-7.5) Ur Specific [place] (1.000-1.030) Urine Protein (Negative) Urine Glucose (UA) (Negative) Urine Ketones (Negative) Urine Blood (Negative) Urine Nitrite (Negative) Urine Bilirubin (Negative) Urine Urobilinogen (Negative) Ur Leukocyte Esterase (Negative) SARS-CoV-2, RNA, NAAT (NEGATIVE) 04/14/22 04/14/22 04/14/22 Range/Units 20:38 20:40 Unknown WBC (4.8-10.8) K/ul RBC (4.63-6.08) M/uL Hgb (14.0-18.0) g/dl Hct (40.1-51.0) % MCV (80.0-100.0) fL MCH (25.0-34.0) pg MCHC (32.0-36.0) g/dL RDW Std Deviation (36.4-46.3) fL RDW Coeff of Dandre (11.5-14.5) % Plt Count (130-400) K/uL MPV (9.4-12.4) fL Immature Gran % (Auto) % Neut % (Auto) % Lymph % (Auto) % Wallace % (Auto) % Eos % (Auto) % Baso % (Auto) % Neut # (Auto) (1.4-6.5) K/uL Lymph # (Auto) (1.2-3.4) K/uL Wallace # (Auto) (0.24-0.82) K/uL Eos # (Auto) (0-0.50) K/uL Baso # (Auto) (0-0.2) K/uL Immature Gran # (Auto) (0.00-0.02) K/uL PT (9.0-12.0) Seconds INR (0.9-1.1) APTT (21.0-31.0) Seconds PTT Ratio Sodium (136-145) mmol/L Potassium (3.5-5.1) mmol/L Chloride (98-107) mmol/L Carbon Dioxide (21-32) mmol/L Anion Gap (3-11) BUN (6-23) mg/dl Creatinine (0.6-1.4) mg/dl Est Cr Clr Drug Dosing ml/min Est GFR ( Amer) ml/min Est GFR (Non-Af Amer) ml/min BUN/Creatinine Ratio (10-20) Glucose (70-99(Fasting)) mg/dl Lactate 1.4 (0.4-2.0) mmol/L Calcium (8.5-10.1) mg/dl Magnesium (1.7-2.4) mg/dl Total Bilirubin (0.2-1.0) mg/dl AST (13-39) U/L ALT (7-52) U/L Alkaline Phosphatase (34-104) U/L Total Protein (6.0-8.3) gm/dl Albumin (3.4-5.0) gm/dl Globulin (2.5-4.0) gm/dl Albumin/Globulin Ratio (0.9-2) Urine Color Yellow Urine Appearance Clear (Clear) Urine pH 5.5 (4.5-7.5) Ur Specific [place] 1.013 (1.000-1.030) Urine Protein Negative (Negative) Urine Glucose (UA) 2+ H (Negative) Urine Ketones Trace H (Negative) Urine Blood Negative (Negative) Urine Nitrite Negative (Negative) Urine Bilirubin Negative (Negative) Urine Urobilinogen Negative (Negative) Ur Leukocyte Esterase Negative (Negative) SARS-CoV-2, RNA, NAAT NEGATIVE (NEGATIVE) Administered Medications Discontinued Medications Ertapenem (Invanz) 10 mls @ 2 mls/min IV NOW STA Stop: 04/14/22 20:32 Last Admin: 04/14/22 21:09 Dose: 2 mls/min Documented By: AN Imaging Data Radiologist's Impression: Right foot CT: There is some older fractures with fixation screws. There are some other fractures which have not been fixated and may be new or subacute. There are erosive changes to the calcaneus consistent with acute or subacute/chronic osteomyelitis. There is some swelling of the Achilles tendon with some peritendinous gas consistent with infection or potentially postoperative in nature. Osteomyelitis of the second metatarsal head was queried. Discharge Plan Visit Data Chief Complaint: Infection Stated Complaint: INFECTION IN R HEEL REF BY DR DONALDSON ED Provider: Mendoza Monteiro Discharge Problem: Infected surgical wound, Immunocompromised, Osteomyelitis, Failure of outpatient treatment Patient Disposition: Admitted As Inpatient Condition: Fair Forms Stand Alone Forms: [facility] Prescriptions Prescriptions: No Action aspirin [Alejo Low Dose Aspirin] 81 mg Tablet,Delayed Release (Dr/Ec) 81 mg PO QAM amitriptyline 25 mg tablet 25 mg PO HS tamsulosin [Flomax] 0.4 mg capsule 0.4 mg PO HS epinephrine [EpiPen] 0.3 mg/0.3 mL auto-injector 0.3 mg subcut UD PRN (Reason: Anaphylaxis) rosuvastatin [Crestor] 20 mg tablet 10 mg PO QAM insulin glargine [Basaglar KwikPen U-100 Insulin] 100 unit/mL (3 mL) insulin pen 48 unit SUBCUT BID insulin lispro [Humalog KwikPen Insulin] 100 unit/mL insulin pen 26 unit SUBCUT AC MDD 100 units per day Rx Instructions: may increase as needed up to 120 units per day diltiazem HCl 240 mg capsule,extended release 24hr 240 mg PO QAM pregabalin 150 mg capsule 150 mg PO PM belatacept 250 mg Recon Soln 250 mg IV MONTHLY Qty: 0 Rx Instructions: give 5mg/kg IV Once Per Month sildenafil 25 mg tablet 25 mg PO UD PRN (Reason: Edema) polyethylene glycol 3350 [Miralax] 17 gram Powder In Packet 17 g PO DAILY PRN (Reason: constipation) Qty: 30 0RF Probiotic 3 billion cell capsule 3,000 mmu cells PO DAILY Qty: 80 0RF Rx Instructions: administer with a meal, 2 caps daily. mycophenolate sodium 180 mg tablet,delayed release (DR/EC) 360 mg PO BID clindamycin HCl 300 mg capsule 300 mg PO QID Rx Instructions: BEGIN 04/10/22 X 7 DAYS acetaminophen [Tylenol] 325 mg Tablet 650 mg PO QID PRN (Reason: Fever) Referrals Referrals: Tanner Zhao DO [Primary Care Provider] -
[2022-04-14 20:57] LABS: Basophils # (auto) 0.02 K/uL (0-0.2); Basophils % (auto) 0.3 %; Eosinophils # (auto) 0.17 K/uL (0-0.50); Eosinophils % (auto) 2.7 %; Hematocrit (blood only) 35.2 % (40.1-51.0); Hemoglobin 11.1 g/dl (14.0-18.0); Immature Granulocytes # (auto) 0.15 K/uL (0.00-0.02); Immature Granulocytes % (auto) 2.4 %; Lymphocytes # (auto) 1.72 K/uL (1.2-3.4); Lymphocytes % (auto) 27.4 %; Mean Corpuscular Hemoglobin 25.8 pg (25.0-34.0); Mean Corpuscular Hgb Conc 31.5 g/dL (32.0-36.0); Mean Corpuscular Volume 81.7 fL (80.0-100.0); Mean Platelet Volume 9.6 fL (9.4-12.4); Monocytes # (auto) 0.66 K/uL (0.24-0.82); Monocytes % (auto) 10.5 %; Neutrophils # (auto) 3.55 K/uL (1.4-6.5); Neutrophils % (auto) 56.7 %; Platelet Count 318 K/uL (130-400); RDW Coefficient of Variation 16.2 % (11.5-14.5); RDW Standard Deviation 48.4 fL (36.4-46.3); Red Blood Count 4.31 M/uL (4.63-6.08); White Blood Count 6.27 K/ul (4.8-10.8)
[2022-04-14 21:07] LABS: INR 1.1 (0.9-1.1); Partial Thromboplastin Ratio 1.2; Partial Thromboplastin Time 32.5 Seconds (21.0-31.0); Prothrombin Time 11.7 Seconds (9.0-12.0)
[2022-04-14 21:17] LABS: Albumin Globulin Ratio 1.1 (0.9-2); Albumin Level 3.5 gm/dl (3.4-5.0); BUN Creatinine Ratio 13.7 (10-20); Bilirubin,Total 0.3 mg/dl (0.2-1.0); Calcium 9.4 mg/dl (8.5-10.1); Creatinine Clr Calc Pharmacy 90.3 ml/min; Est GFR (African American) 74.3 ml/min; Est GFR (Non-African American) 64.1 ml/min; Globulin 3.1 gm/dl (2.5-4.0); Magnesium 1.8 mg/dl (1.7-2.4); Potassium 4.2 mmol/L (3.5-5.1); Total Protein 6.6 gm/dl (6.0-8.3)
[2022-04-15] MEDS ORDERED: EPINEPHrine INJ 1 MG/ML AMP IM PRN (00:34)
[2022-04-15] MEDS ORDERED: ACETAMINOPHEN 325 MG TAB PO PRN (00:34)
[2022-04-15] MEDS ORDERED: POLYETHYLENE (MIRALAX) 17 GM PACK PO PRN ×2 (00:34)
[2022-04-15] MEDS ORDERED: ONDANSETRON INJ 2 MG/ML 2 ML VIAL IV PRN (00:34)
[2022-04-15] MEDS ORDERED: VANCOMYCIN CONSULT ACTIVE PRN (00:34)
[2022-04-15] MEDS ORDERED: GLUCAGON FOR INJ 1 MG VIAL IM PRN (01:00)
[2022-04-15] MEDS ORDERED: GLUCOSE 10 TAB/TUBE PO PRN (01:00)
[2022-04-15] MEDS ORDERED: CARBOHYDRATES FOR HYPOGLYCEMIA PO PRN (01:00)
[2022-04-15] MEDS ORDERED: GLUCOSE 40% GEL 15 GM TUBE PO PRN (01:00)
[2022-04-15] MEDS ORDERED: VANCOMYCIN HCL 2,250 MG in SODIUM CHLORIDE 0.9% 500 ML IV ONE (01:00)
[2022-04-15] MEDS ORDERED: DEXTROSE 50% 50 ML SYRINGE IV PRN (01:00)
--- NOTE | 2022-04-15 04:11 | History and Physical Report ---
DATE OF ADMISSION: 04/14/2022. CHIEF COMPLAINT: Right heel infection. HISTORY OF PRESENT ILLNESS: This is a 56-year-old male with past medical history significant for type 2 diabetes, diabetic retinopathy, history of sleep apnea, chronic CAD s/p stents, hypertension, orthostatic hypotension, history of multiple closed fractures of cervical vertebrae, thoracic spine fracture, peripheral neuropathy, history of syncope and collapse, history of tobacco use disorder, status post kidney transplant, presents with right heel ulcer. The patient was admitted in December of 2021 with nonhealing diabetic foot ulcer of the right ankle, osteomyelitis of right calcaneus. He was treated with antibiotics prior to that. MRI showed osteomyelitis, status post right calcaneal ostectomy by podiatry and wound closure. At that time, cultures grew E. coli and group B strep. He was initially treated with daptomycin and Zosyn, but later changed to Invanz for 6 weeks. The patient says since the last 3 weeks again the wound opened up, and is following with Podiatry and he finished a 10-day course of clindamycin, but it was not getting better, so he was advised to come to the hospital. He is not ambulating since December, he is using scooter. Denies any fever or chills. No chest pain, no shortness of breath, no nausea, no vomiting, no abdominal pain. Normal bowel and bladder movements. Appetite is okay. No headache, no blurred visions, no earache, no runny nose, no sore throat, no cough. Currently, resting comfortably and hemodynamically stable. Would cultures are drawn in the ER. ALLERGIES: ZOFRAN, BEE VENOM. PAST MEDICAL HISTORY: As mentioned above. PAST SURGICAL HISTORY: Cystoscopy, injection of the eye drug, cataract surgery, removal of bilateral inner eye fluid, kidney transplant in 2018. MEDICATIONS: The patient is on Tylenol 650 mg p.o. q.i.d. p.r.n., amitriptyline 25 mg p.o. at bedtime, aspirin 81 mg p.o. daily, belatacept 250 mg IV monthly, clindamycin 300 mg p.o. q.i.d., diltiazem 240 mg p.o. a.m., EpiPen 0.3 mg subcutaneous p.r.n., insulin glargine 48 units b.i.d., insulin Humalog 26 units a.c., lactobacillus 1 capsule daily, mycophenolate sodium 360 mg p.o. b.i.d., MiraLax 17 g p.o. daily p.r.n., pregabalin 150 mg p.o. a.m., Crestor 10 mg p.o. a.m., Flomax 0.4 mg p.o. at bedtime, Viagra 25 mg p.o. p.r.n. FAMILY HISTORY: Significant for maternal grandmother had chronic kidney disease; father had cancer, heart disorder; mother has heart disorder, diabetes; sister has diabetes; brother has heart disorder. SOCIAL HISTORY: . Chews tobacco. No alcohol, no drug use. REVIEW OF SYSTEMS: As per HPI. Rest of the review of systems is negative. PHYSICAL EXAMINATION: GENERAL: The patient is obese, not in acute distress. VITAL SIGNS: Temperature 37.1, pulse 71, respirations 16, blood pressure 120/60, oxygen 98% on room air. HEENT: Pupils equal, round and reactive to light. Oral mucosa moist. NECK: No JVD. No neck masses. CARDIOVASCULAR: S1 and S2 heard. Regular rate and rhythm. No murmur, no gallop. RESPIRATORY SYSTEM: Normal AP diameter. No accessory muscle use. No wheezing, no crackles. ABDOMEN: Soft, bowel sounds present, nontender, no distention. CENTRAL NERVOUS SYSTEM: Cranial nerves II-XII grossly intact, nonfocal. EXTREMITIES: Right heel on the posterior aspect two open wounds seen. Mild erythematous changes. LABORATORY DATA: WBC 6.2, hemoglobin 11.1, hematocrit 35.2, platelets 318. PT 11.7, INR 1.1, APTT 22.5. Sodium 134, potassium 4.2, chloride 104, bicarbonate 22, BUN 17, creatinine 1.2, serum glucose 144, lactate 1.4, calcium 9.4, magnesium 1.8, total bilirubin 0.3, AST 11, ALT 9, alkaline phosphatase 73. Urinalysis, ____ glucose. SARS-CoV-2 rapid test negative. IMAGING DATA: Right foot CT, there is nondisplaced fracture of the calcaneus. The main fracture is fixated with two screws. Delayed abnormal healing should be considered. There is incomplete transverse fracture involving the medial cortex of the calcaneus, which does not appear entirely fixated. This may represent a more recently developed stress fracture. There are erosive changes suggestive along the periphery of the posterior calcaneus raising the possibility of acute on subacute chronic osteomyelitis. There is swelling of the distal Achilles tendon with intratendinous and peritendinous gas. Findings could be infectious versus postoperative in nature. Old screw tracts were identified in the tarsal bones and metatarsal bases. There is suggestion of subtle cortical erosions involving the plantar aspect of the second metatarsal head, raising the possibility of osteomyelitis in this location. ASSESSMENT AND PLAN: This is a 56-year-old male who presents with a nonhealing right ankle heel ulcer. 1. Nonhealing diabetic right ankle, heel ulcer: The patient is immunosuppressive because of his using mycophenolate and belatacept use for his renal transplant and CAT scan is showing osteomyelitis of calcaneal region. The patient has had right calcaneal ostectomy by vb developer on 12/19/2021 and 12/21/2021 had wound closure. Now the wound has opened up. Cultures were done in the ER. Empirically started on Invanz and vancomycin. Consult podiatry. . 2. History of type 2 diabetes: Continue his home glargine and placed on insulin sliding scale. Follow the blood sugars. 3. Status post renal transplant: On mycophenolate 360 mg b.i.d. and on belatacept 250 mg IV monthly. Follow up with transplant center. Last admission, mycophenolate was held for 2 weeks,. May be, need to rediscuss with [facility] renal transplant if he needs long-term antibiotics 4. History of coronary artery disease: Status post stent. On statin, aspirin, and diltiazem. 5. History of sleep apnea: On CPAP at bedtime. 6. Hypertension: On diltiazem. 7. Hyperlipidemia: On statin. 8. Deep venous thrombosis prophylaxis: We will place him on sequential compression devices for now for any planned procedures. If there is no plan to proceed with any procedure, will place him on Lovenox. DISPOSITION: Admit to medical floor. Expect to discharge home and follow with family doctor. Level 1 full code. Job ID: [id number] [facility]
[2022-04-15 06:07] LABS: Hematocrit (blood only) 34.3 % (40.1-51.0); Hemoglobin 10.9 g/dl (14.0-18.0); Mean Corpuscular Hemoglobin 26.1 pg (25.0-34.0); Mean Corpuscular Hgb Conc 31.8 g/dL (32.0-36.0); Mean Corpuscular Volume 82.1 fL (80.0-100.0); Mean Platelet Volume 9.5 fL (9.4-12.4); Platelet Count 310 K/uL (130-400); RDW Coefficient of Variation 16.5 % (11.5-14.5); RDW Standard Deviation 49.6 fL (36.4-46.3); Red Blood Count 4.18 M/uL (4.63-6.08); White Blood Count 6.17 K/ul (4.8-10.8)
[2022-04-15 06:26] LABS: Calcium 8.8 mg/dl (8.5-10.1); Creatinine Clr Calc Pharmacy 109.5 ml/min; Est GFR (African American) 96.4 ml/min; Est GFR (Non-African American) 83.2 ml/min; Potassium 4.2 mmol/L (3.5-5.1)
[2022-04-15 06:55] LABS: Basophils # (auto) 0.02 K/uL (0-0.2); Basophils % (auto) 0.3 %; Eosinophils # (auto) 0.24 K/uL (0-0.50); Eosinophils % (auto) 3.9 %; Immature Granulocytes # (auto) 0.32 K/uL (0.00-0.02); Immature Granulocytes % (auto) 5.2 %; Lymphocytes # (auto) 1.53 K/uL (1.2-3.4); Lymphocytes % (auto) 24.8 %; Monocytes # (auto) 0.71 K/uL (0.24-0.82); Monocytes % (auto) 11.5 %; Neutrophils # (auto) 3.35 K/uL (1.4-6.5); Neutrophils % (auto) 54.3 %
[2022-04-15 07:32] LABS: Estimated Average Glucose 214 mg/dl; Hemoglobin A1C 9.1 % (4.5-5.6)
--- NOTE | 2022-04-15 08:04 | CT Scan Report ---
CT foot RT wo con CLINICAL HISTORY: Pain in the heel with swelling. Evaluate for possible osteomyelitis COMPARISON STUDY: CTA of the right foot from 12/16/2021 CT DOSE: 147.41 mGy.cm TECHNIQUE: Standard CT of the right foot is performed without IV contrast. Multiplanar reconstruction is performed. A dose lowering technique was utilized adhering to the principles of ALARA. FINDINGS: Bones: Compared to the previous examination, the patient is status post internal fixation with screws seen transfixing an old calcaneal fracture. No acute fracture is seen. There is evidence for partial resection versus cortical destruction involving the inferior aspect of the calcaneus. The cortical m argins are indistinct the findings are highly suspicious for the presence of osteomyelitis. The remaining bones are intact with no other findings suspicious for osteomyelitis. There are no lyti c or blastic lesions. Joints: The subtalar joint is maintained. The remaining imaged joint spaces are maintained. The remai tosha bones are in anatomic alignment. Soft tissues: Compared to the previous examination, there is again soft tissue ulceration present amita ng the posterior aspect of the heel. Additionally, there has been interval swelling of the Achilles t endon and pre-Achilles soft tissues with air present within the soft tissues. 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 There are no focal fluid collections. IMPRESSION: 1. CT findings highly suspicious for the presence of osteomyelitis involving the inferior margin of t he calcaneus as described. 2. There is also increased soft tissue ulceration along the heel posteriorly. 3. Additionally, there is swelling of the Achilles tendon and pre-Achilles soft tissues with air pres ent characteristic of gas gangrene. ACT 112: Negative or not required by law. Electronically signed by: Aquiles Santos M.D. 04/15/2022 8:03 AM
[2022-04-15] MEDS: ASPIRIN 81 MG ECTAB PO SCH (08:35)
[2022-04-15] MEDS: dilTIAZem HCL 240 MG CAPCR PO SCH (08:35)
[2022-04-15] MEDS: ROSUVASTATIN CALCIUM 10 MG TAB PO SCH (08:35)
[2022-04-15] MEDS: ADVANCED PROBIOTIC 1250 MG CAPSULE PO SCH (08:35)
[2022-04-15] MEDS: MYCOPHENOLATE SODIUM 180 MG TAB PO SCH ×2 (08:35→20:01)
[2022-04-15] MEDS: LANTUS PER UNIT CHARGE SQ SCH ×2 (08:39→21:57)
[2022-04-15] MEDS: INSULIN ASPART PER UNIT SC SCH ×4 (08:40→21:54)
[2022-04-15] MEDS ORDERED: LANTUS PER UNIT CHARGE SQ SCH (09:00)
--- NOTE | 2022-04-15 09:08 | Pharmacy Report ---
Pharmacy PK ABX Note - Date of Service April 15, 2022 - Assessment and Plan Assessment 56 year old M receiving empiric vancomycin and ertapenem for treatment of nonhealing diabetic calcaneal ulcer. Pertinent PMH includes history of renal transplant (on immunosuppressant therapy), s/p right calcaneal ostectomy (12/19/21 and 12/21/21) with report of wound opening up, and T2DM. Blood cultures x 2 and right foot culture pending. Day # 1 of antimicrobial therapy. Plan Vancomycin * Loading dose: 2250 mg IV ((20 mg/kg) * Maintenance dose: 1250 mg IV every 12 hours * Regimen is predicted to achieve target AUC/IVETTE of 400-600 mg/L.hr * Will plan for random/trough level on 04/17/22 provided renal function remains stable Ertapenem * 1 g IV q24h - appropriate based on renal function Pharmacy will continue to follow and will adjust dose/frequency as necessary. Thank you. Pharmacy has transitioned to AUC monitoring for vancomycin. AUC/IVETTE is the preferred PK/PD target and is associated with decreased risk of nephrotoxicity compared to traditional trough targets.
--- NOTE | 2022-04-15 09:12 | Hospitalist Progress Note ---
Date of Service April 15, 2022 Assessment & Plan (1) Infected surgical wound: (2) Osteomyelitis: (3) Failure of outpatient treatment: (4) Hx of kidney transplant: (5) Immunocompromised: (6) Diabetes mellitus with hyperglycemia: (7) Hypertension: Plan This is a 56-year-old male with PMH of type 2 diabetes, diabetic retinopathy, history of sleep apnea, chronic CAD s/p stents, hypertension, orthostatic hypotension, history of multiple closed fractures of cervical vertebrae, tho racic spine fracture, peripheral neuropathy, history of syncope and collapse, history of tobacco use disorder, status post kidney transplant, presents with RLE wounds. Non-healing RLE wounds Osteomyelitis of R heel History ofnonhealing diabetic right ankle, heel ulcer Following with Dr. Donaldson of podiatry, previously admitted with osteo of R heel wound s/p 6 weeks of Invanz. Wound re-opened and recently finished a 10 day course of IV Clinda Also with history of Achilles lengthening procedure with open wounds on RLE Wounds did not improve on Clinda and patient was directed to ED for further evaluation VSS, no leukocytosis Empirically started on Invanz and vancomycin Foot CT with findings highly suspicious for the presence of osteomyelitis involving the inferior margin of the calcaneus as described.There is also increased soft tissue ulceration along the heel posteriorly. Additionally, there is swelling of the Achilles tendon and pre-Achilles soft tissues with air present characteristic of gas gangrene. Podiatry consulted. Per discussion with Dr. Donaldson, obtaining bone scan for better visualization ID consulted Does have home health set up per discussion with CM Immunocompromised state History of renal transplant Continue mycophenolate 360mg IBD. On belatacept - last admission mycophenolate was held for 2 weeks. [place] [facility] [place] to discharge on long-term antibiotics DM II A1c 9.1 Per development educator, no insulin adjustment indicated SSI while in-patient BSG AC HS CAD S/p stent. Continue aspirin, statin HTN Continue diltiazem DVT Ppx: SCDs for now. If no plan to proceed with procedure, will transition to SQ lovenox tomorrow Code status: FULL Dispo: Admitted to med/surg Patient seen in collaboration with Dr. Garsia. Please see addendum. Admission and Anticipated Discharge Date Admission Date: April 14, 2022 Supervising Physician Co-Signing Physician Notes I have seen and examined the patient and have discussed the case with the provider above. I agree with the assessment and plan as stated with the following exceptions. 56 yo uncontrolled diabetic renal transplant patient with a grossly infected surgical wound with ulceration of the right foot due to type 2 diabetes. Has known peripheral neuropathy and is feeling no pain 2/2 this neuropathy. Osteomyelitis seen on imaging and there is clear pus from wounds. There is erythema that is spreading up the medial ankle. He is afebrile and not septic. There is fixation hardware in the calcaneus area. Per podiatric surgeon a bone scan is recommended and an additional surgeon, Dr. Mar, will be at bedside to evaluate for need for I&D tomorrow. Will keep him NPO after m idnight in case he needs I&D, which is a possibility. This is a renal transplant patient who continues on mycophenolate mofetil twice daily and belatocept, last amdinistered his monthly infusion on 04/09. Given he is admitted but not septic, it is likely indicated that we hold both of these or just the antimetabolite. We will hold antimetabolite (cellcept) now and consult nephrology, follow-up with transplant center, in a.m. Awaiting infectious disease consultation. Continue broad-spectrum antibiotics for now. Physical exam is otherwise unremarkable. Ady DO Subjective Seen and examined in 319-1. Feeling well today. Denies significant pain or discomfort to right lower extremity. Has been following with podiatry and has home health and outpatient setting. Right lower extremity infection previously treated with IV antibiotics but has since "opened back up" and become more red. Encouraged by solar development engineer who is out of town to come to ED for further evaluation. Awaiting bone scan. Denies any fever, chills, chest pain, shortness of breath, nausea, vomiting, abdominal pain, dysuria, diarrhea constipation. Review of Systems Review of Systems: At least ten systems reviewed and negative except as noted in the HPI. Physical Exam Physical Exam: Gen: WD/WN, NAD, lying in bed, A&Ox3 HEENT: Normocephalic, atraumatic, conjunctivae moist, sclerae anicteric, mucous membranes moist Lung: Clear to Auscultation bilaterally, no wheezes/rales/rhonchi Heart: Regular rate, regular rhythm, no murmurs, rubs, or gallops Abdomen: Soft, NT, ND +BS x 4 Extremities: R wound near calcaneus without drainage. Smaller wounds on posterior RLE superior to Achilles tendon with serous drainage and mild surrounding erythema. Non-tender Skin: Warm, no rash Results & Data Results & Data ([facility]) Vital Signs (Past 12 Hours) Vital Signs Temp Pulse Pulse Resp BP BP Pulse Ox 04/15/22 05:50 36.7 C 69 18 124/72 96 04/15/22 00:35 36.7 C 70 20 119/67 98 04/15/22 00:34 04/15/22 00:34 36.7 C 70 20 119/67 98 04/15/22 00:31 71 16 120/60 98 04/14/22 23:04 18 96 04/14/22 21:20 136/61 O2 Del Method 04/15/22 05:50 Room Air 04/15/22 00:35 Room Air 04/15/22 00:34 Room Air 04/15/22 00:34 Room Air 04/15/22 00:31 Room Air 04/14/22 23:04 Room Air 04/14/22 21:20 Laboratory Results Short CBC 04/14/22 04/15/22 Range/Units 20:35 05:44 WBC 6.27 6.17 (4.8-10.8) K/ul Hgb 11.1 L 10.9 L (14.0-18.0) g/dl Hct 35.2 L 34.3 L (40.1-51.0) % Plt Count 318 310 (130-400) K/uL BMP 04/14/22 04/15/22 20:35 05:44 Sodium 134 L 138 Potassium 4.2 4.2 Chloride 104 107 Carbon Dioxide 22 25 BUN 17 18 Creatinine 1.24 1.00 Glucose 144 H 89 Calcium 9.4 8.8 Liver Function 04/14/22 Range/Units 20:35 Total Bilirubin 0.3 (0.2-1.0) mg/dl AST 11 L (13-39) U/L ALT 9 (7-52) U/L Alkaline Phosphatase 73 (34-104) U/L Albumin 3.5 (3.4-5.0) gm/dl Urine 04/14/22 Range/Units Unknown Urine Color Yellow Urine Appearance Clear (Clear) Urine pH 5.5 (4.5-7.5) Ur Specific [place] 1.013 (1.000-1.030) Urine Protein Negative (Negative) Urine Glucose (UA) 2+ H (Negative) Diagnostic Findings Foot CT 04/14/22 20:28 CT foot RT wo con CLINICAL HISTORY: Pain in the heel with swelling. Evaluate for possible osteomyelitis COMPARISON STUDY: CTA of the right foot from 12/16/2021 CT DOSE: 147.41 mGy.cm TECHNIQUE: Standard CT of the right foot is performed without IV contrast. Multiplanar reconstruction is performed. A dose lowering technique was utilized adhering to the principles of ALARA. FINDINGS: Bones: Compared to the previous examination, the patient is status post internal fixation with screws seen transfixing an old calcaneal fracture. No acute fracture is seen. There is evidence for partial resection versus cortical destruction involving the inferior aspect of the calcaneus. The cortical margins are indistinct the findings are highly suspicious for the presence of osteomyelitis. The remaining bones are intact with no other findings suspicious for osteomyelit is. There are no lytic or blastic lesions. Joints: The subtalar joint is maintained. The remaining imaged joint spaces are maintained. The remaining bones are in anatomic alignment. Soft tissues: Compared to the previous examination, there is again soft tissue ulceration present along the posterior aspect of the heel. Additionally, there has been interval swelling of the Achilles tendon and pre-Achilles soft tissues with air present within the soft tissues. The findings are suspicious for gas gangrene. There are no focal fluid collections. IMPRESSION: 1. CT findings highly suspicious for the presence of osteomyelitis involving the inferior margin of the calcaneus as described. 2. There is also increased soft tissue ulceration along the heel posteriorly. 3. Additionally, there is swelling of the Achilles tendon and pre-Achilles soft tissues with air present characteristic of gas gangrene. ACT 112: Negative or not required by law. Electronically signed by: Aquiles Santos M.D. 04/15/2022 8:03 AM Foot X-Ray 04/15/22 09:43 XR foot RT min 3V routine CLINICAL HISTORY: Right heel swelling. COMPARISON STUDY: Right foot CT 04/14/2022 FINDINGS: There is a 5.3 cm skin ulceration at the posterior heel. Prior resection of the plantar aspect of the calcaneus. There are 2 screws transfixing the healing fractures within the calcaneus. Focal cortical erosion within the posterior aspect of the residual calcaneus which is highly suspicious for osteomyelitis. There is mild periprosthetic lucency at the head of the more inferior calcaneal screw. This could represent associated infection. Abnormal thickening and soft tissue gas at the visualized Achilles tendon. Basilar calcifications are noted. Old postoperative changes within the head of the first metatarsal. The Lisfranc joint is intact. IMPRESSION: 1. There is a 5.3 severe skin ulceration at the posterior heel. Deep to the skin ulceration there is a focal area of cortical erosion at the posterior calcaneus which is highly suspicious for ostial myelitis. 2. There is also mild periprosthetic lucency surrounding the head of the more inferior calcaneal screw which may represent an additional site of infection. 3. Abnormal thickening and soft tissue gas at the visualized Achilles tendon. This is consistent with infection from a gas-forming organism. ACT 112: Negative or not required by law. Electronically signed by: Mauricio Amaya M.D. 04/15/2022 10:37 AM (1) Diabetes mellitus with hyperglycemia Diabetes mellitus skilled nursing insulin use: with long term care pharmacist use Diabetes mellitus type: type 2 Qualified Code(s): E11.65 - Type 2 diabetes mellitus with hyperglycemia; Z79.4 - intermediate (current) use of insulin (2) Hypertension Hypertension type: essential hypertension Qualified Code(s): I10 - Essential (primary) hypertension (3) Osteomyelitis Laterality: right Osteomyelitis location: foot Osteomyelitis type: unspecified type Qualified Code(s): M86.9 - Osteomyelitis, unspecified
[2022-04-15] MEDS: VANCOMYCIN HCL 1,250 MG in SODIUM CHLORIDE 0.9% 250 ML IV SCH ×2 (09:51→20:05)
--- NOTE | 2022-04-15 10:38 | XRay Report ---
XR foot RT min 3V routine CLINICAL HISTORY: Right heel swelling. COMPARISON STUDY: Right foot CT 04/14/2022 FINDINGS: There is a 5.3 cm skin ulceration at the posterior heel. Prior resection of the plantar asp ect of the calcaneus. There are 2 screws transfixing the healing fractures within the calcaneus. Foca l cortical erosion within the posterior aspect of the residual calcaneus which is highly suspicious f or osteomyelitis. There is mild periprosthetic lucency at the head of the more inferior calcaneal scr ew. This could represent associated infection. Abnormal thickening and soft tissue gas at the visuali zed Achilles tendon. Basilar calcifications are noted. Old postoperative changes within the head of t he first metatarsal. The Lisfranc joint is intact. IMPRESSION: 1. There is a 5.3 severe skin ulceration at the posterior heel. Deep to the skin ulceration there is a focal area of cortical erosion at the posterior calcaneus which is highly suspicious for ostial mye litis. 2. There is also mild periprosthetic lucency surrounding the head of the more inferior calcaneal scre w which may represent an additional site of infection. 3. Abnormal thickening and soft tissue gas at the visualized Achilles tendon. This is consistent with infection from a gas-forming organism. ACT 112: Negative or not required by law. Electronically signed by: Mauricio Amaya M.D. 04/15/2022 10:37 AM
[2022-04-15] MEDS ORDERED: VANCOMYCIN HCL 1,000 MG in SODIUM CHLORIDE 0.9% 250 ML IV SCH (12:00)
[2022-04-15] MEDS: hydrALAZINE HCL 20 MG/ML VIAL IV PRN (18:19)
--- NOTE | 2022-04-15 18:27 | Podiatry Consultation ---
Date of Consultation April 15, 2022 Assessment & Plan (1) Infected surgical wound: Telemedicine visit completed with Patient. I have reviewed recent diagnostic results including CT, X-rays, Labs and awaiting completion of bone scan. I did review case with Abby Clark PA-C. Infectious Disease consulted for recommendation of out patient Abx therapy. Due to signs of Gas noted in soft tissue I have contacted Dr. Mar for possible release and flush at bedside. He has kindly accepted and does have privileges at [facility] if upon examination procedure is warranted. Patient may require explant of calcaneus fixation bending results of bone scan. (2) Ulcer of right foot due to type 2 diabetes mellitus: (3) Osteomyelitis: Laterality: right Osteomyelitis location: foot Osteomyelitis type: unspecified type Qualified Code(s): M86.9 - Osteomyelitis, unspecified History of Present Illness Attending Physician: Mayi Garsia, History of Present Illness Patient is a 56 year old type II diabetic male who is well known to me. Patient was referred to [facility] ED after phone discussion last evening 04/14/22. Patient expressed concern about persistent signs of infection and failing outpatient clindamycin therapy. Patient had previous wound culture [facility] ED showing growth of Group B Strep. Wound Culture was taken at [facility] ED last evnening and patient was started on IV Invanz and Vancomycin. Today Patient is continuing to deny constitutional symptoms. His WBC remains unremarkable. Allergies Allergy/AdvReac Type Severity Reaction Status Date / Time ondansetron Allergy Intermediate confusion Unverified 04/14/22 22:47 bee venom protein (honey bee) Allergy Unknown SHORTNESS Verified 04/14/22 22:47 OF BREATH Home Medications Medication Instructions Recorded Confirmed Type amitriptyline 25 mg tablet 25 mg PO HS 09/11/19 04/14/22 History aspirin 81 mg tablet,delayed 81 mg PO QAM 09/11/19 04/14/22 History release (Alejo Low Dose Aspirin) epinephrine 0.3 mg/0.3 mL 0.3 mg subcut UD PRN Anaphylaxis 09/11/19 04/14/22 History injection, auto-injector (EpiPen) insulin glargine 100 unit/mL (3 48 unit subcut BID 09/11/19 04/14/22 History mL) subcutaneous pen (Basaglar KwikPen U-100 Insulin) insulin lispro 100 unit/mL 26 unit subcut AC 09/11/19 04/14/22 History subcutaneous pen (Humalog KwikPen (U-100) Insulin) rosuvastatin 20 mg tablet (Crestor) 10 mg PO QAM 09/11/19 04/14/22 History tamsulosin 0.4 mg capsule (Flomax) 0.4 mg PO HS 09/11/19 04/14/22 History diltiazem HCl 240 mg 240 mg PO QAM 05/29/20 04/14/22 History capsule,extended release 24 hr belatacept 250 mg intravenous 250 mg IV MONTHLY ##0 05/30/20 04/14/22 History solution pregabalin 150 mg capsule 150 mg PO PM 05/30/20 04/14/22 History acetaminophen 325 mg tablet 650 mg PO QID PRN Fever 11/19/21 04/14/22 History (Tylenol) sildenafil 25 mg tablet 25 mg PO UD PRN Edema 12/16/21 04/14/22 History lactobacillus combination no.4 3 3,000 mmu cells PO DAILY #80 caps 12/26/21 04/14/22 Rx billion cell capsule (Probiotic) polyethylene glycol 3350 17 gram 17 g PO DAILY PRN constipation #30 12/26/21 04/14/22 Rx oral powder packet (Miralax) ea clindamycin HCl 300 mg capsule 300 mg PO QID 04/14/22 04/14/22 History mycophenolate sodium 180 mg 360 mg PO BID 04/14/22 04/14/22 History tablet,delayed release Patient History Medical History Diabetes Fever Gastroparesis History of peritoneal dialysis Hypertension Surgical History Hx of kidney transplant September 2017 Prema Albarran Status post right foot surgery Family History Other Family history non-contributory Social History Smoking Status: Never smoker Second Hand Exposure: No; Do You Dip or Chew Tobacco: No; Hx Alcohol Use: Yes Alcohol type: wine Hx Substance Use: No Preferred Language: Welsh Communication Ability: Effective Depot Manager Required: No Beliefs That Will Affect Care: None marital status: Current Living Situation: Spouse Other Information That Helps Us Care for You: No Feels Safe at Home: Yes Safety Concerns: Feels Safe At This Time Assistive Devices: Bedside Commode and Walker Assistive Devices Comment: none of these devises present Results & Data ([facility]) Vital Signs (Past 12 Hours) Vital Signs Temp Pulse Resp BP Pulse Ox O2 Del Method 04/15/22 17:11 176/83 H 04/15/22 15:31 36.5 C 70 14 186/90 H 97 Room Air Diagnostic Findings X-ray and CT reviewed. [place], [place] [phone] XRay Report Patient:MIRZA GILES Admit Date:04/14/22 MR#:[id number] Address1:[address] [place] [address] Acct ID:[id number] Address2: Date:1965 [facility] Zip:[place] [address] Age:56 Location: Sex: Room/Bed:E319- Att Phy:Mayi Garsia DO Diagnosis:INFECTION Khushi Phy:Pavel Hart DO Service Date:04/15/22 Fam Phy: Interpreting Phy:Mauricio Amaya MDAdmit Phy:Sloan Figueroa MD Ordering Phy:Vince Donaldson DPM, MS cc: ~ XR foot RT min 3V routine CLINICAL HISTORY: Right heel swelling. COMPARISON STUDY: Right foot CT 04/14/2022 FINDINGS: There is a 5.3 cm skin ulceration at the posterior heel. Prior resection of the plantar aspect of the calcaneus. There are 2 screws transfixing the healing fractures within the calcaneus. Focal cortical erosion within the posterior aspect of the residual calcaneus which is highly suspicious for osteomyelitis. There is mild periprosthetic lucency at the head of the more inferior calcaneal screw. This could represent associated infection. Abnormal thickening and soft tissue gas at the visualized Achilles tendon. Basilar calcifications are noted. Old postoperative changes within the head of the first metatarsal. The Lisfranc joint is intact. IMPRESSION: 1. There is a 5.3 severe skin ulceration at the posterior heel. Deep to the skin ulceration there is a focal area of cortical erosion at the posterior calcaneus which is highly suspicious for ostial myelitis. 2. There is also mild periprosthetic lucency surrounding the head of the more inferior calcaneal screw which may represent an additional site of infection. 3. Abnormal thickening and soft tissue gas at the visualized Achilles tendon. This is consistent with infection from a gas-forming organism. ACT 112: Negative or not required by law. Electronically signed by: Mauricio Amaya M.D. 04/15/2022 10:37 AM
[2022-04-15 19:48] LABS: A calco-baum cmplx NotReported Not Detected (NotDetected); Bact fragilis Not Reported Not Detected (NotDetected); C auris Not Reported Not Detected (NotDetected); Calbicans Not Reported Not Detected (NotDetected); Candida glabrata Not Reported Not Detected (NotDetected); Candida krusei Not Reported Not Detected (NotDetected); Cneoformans/gatti Not Reported Not Detected (NotDetected); Cparapsilosis Not Reported Not Detected (NotDetected); Ctropicalis Not Reported Not Detected (NotDetected); E cloacae compx Not Reported Not Detected (NotDetected); Efaecalis Not Reported Not Detected (NotDetected); Efaecium Not Reported Not Detected (NotDetected); Enterobacterales Not Reported Not Detected (NotDetected); Escherichia coli Not Reported Not Detected (NotDetected); H influenzae Not Reported Not Detected (NotDetected); K aerogenes Not Reported Not Detected (NotDetected); Koxytoca Not Reported Not Detected (NotDetected); Kpneumoniae grp Not Reported Not Detected (NotDetected); Lmonocyt Not Reported Not Detected (NotDetected); N meningitidis Not Reported Not Detected (NotDetected); P aeruginosa Not Reported Not Detected (NotDetected); Proteus spp Not Reported Not Detected (NotDetected); Salmonella spp Not Reported Not Detected (NotDetected); Smarcescens Not Reported Not Detected (NotDetected); Staph lugdunensis Not Reported Not Detected (NotDetected); Staph spp. Not Reported DETECTED (NotDetected); Staphaureus Not Reported Not Detected (NotDetected); Staphepi Not Reported DETECTED (NotDetected); Staphylococcus spp. DETECTED (NotDetected); Stenmaltophilia Not Reported Not Detected (NotDetected); Strep agal(GrpB) Not Reported Not Detected (NotDetected); Strep pneum Not Reported Not Detected (NotDetected); Strep pyog (GrpA) Not Reported Not Detected (NotDetected); Strep spp Not Reported Not Detected (NotDetected); mecAC Resistant Gene DETECTED (NotDetected)
[2022-04-15 19:54] LABS: Staphylococcus epidermidis DETECTED (NotDetected)
[2022-04-15] MEDS ORDERED: ERTAPENEM SODIUM 10 ML IV SCH (20:00)
[2022-04-15] MEDS: AMITRIPTYLINE HCL 25 MG TAB PO SCH (20:01)
[2022-04-15] MEDS: TAMSULOSIN HCL 0.4 MG CAP PO SCH (20:01)
[2022-04-15] MEDS: PREGABALIN 150 MG CAP PO SCH (20:06)
[2022-04-15] MEDS: ERTAPENEM SODIUM 1,000 MG in SYRINGE 0 ML IV SCH (20:06)
--- NOTE | 2022-04-15 20:09 | Nuclear Medicine Report ---
NM bone 3 phase ltd CLINICAL HISTORY: Rule out Right foot Osteomyelitis TECHNIQUE: Following the intravenous injection of 27.3 mCi of Tc-99m labeled MDP, immediate flow and blood pooling images of the bilateral feet were obtained. Additional selected static images of the bi lateral feet were obtained after two hours. Comparison: None available at the time of this dictation. FINDINGS: On flow imaging, there is markedly asymmetric uptake on the right leg and foot. On delayed images, focal uptake is seen in the calcaneus and midfoot on the right, a focus of uptake is also see n in the distal tibia. IMPRESSION: Findings are compatible with cellulitis and osteomyelitis of the hindfoot and midfoot as well as a po ssible focus in the distal tibia. ACT 112: Negative or not required by law. Electronically signed by: Ferny Goodwin M.D. 04/15/2022 8:07 PM
[2022-04-16] MEDS: VANCOMYCIN HCL 1,250 MG in SODIUM CHLORIDE 0.9% 250 ML IV SCH ×2 (07:59→22:03)
[2022-04-16 08:05] LABS: Hematocrit (blood only) 36.3 % (40.1-51.0); Hemoglobin 11.4 g/dl (14.0-18.0); Mean Corpuscular Hemoglobin 25.6 pg (25.0-34.0); Mean Corpuscular Hgb Conc 31.4 g/dL (32.0-36.0); Mean Corpuscular Volume 81.6 fL (80.0-100.0); Mean Platelet Volume 9.2 fL (9.4-12.4); Platelet Count 323 K/uL (130-400); RDW Coefficient of Variation 16.4 % (11.5-14.5); RDW Standard Deviation 48.6 fL (36.4-46.3); Red Blood Count 4.45 M/uL (4.63-6.08); White Blood Count 6.38 K/ul (4.8-10.8)
[2022-04-16 08:29] LABS: BUN Creatinine Ratio 20.4 (10-20); Calcium 9.4 mg/dl (8.5-10.1); Creatinine Clr Calc Pharmacy 117.8 ml/min; Est GFR (African American) 105.2 ml/min; Est GFR (Non-African American) 90.8 ml/min; Potassium 4.4 mmol/L (3.5-5.1)
--- NOTE | 2022-04-16 08:59 | Podiatry Consultation ---
Date of Consultation April 16, 2022 Assessment & Plan (1) Infected surgical wound: (2) Osteomyelitis: Laterality: right Osteomyelitis location: foot Osteomyelitis type: unspecified type Qualified Code(s): M86.9 - Osteomyelitis, unspecified (3) Immunocompromised: Plan Right heel infection - Patient examined and evaluated. Imaging results reviewed with patient. - Discussed at length options moving forward, including need for bedside I&D now with Iodoform packing and wound care. This was performed without incident; NPO order released. - Imaging suggests underlying osteomyelitis still, though this is difficult to confirm given his recent hardware and surgical changes; everything on CT and bone imaging could be explained by either or both of surgical changes and infection. - Minimal purulent drainage expressed, though wound does tunnel from proximal end of noted clinical wound along the Achilles tendon proximally 5cm. This space was packed with iodoform gauze. - Within the wound, no significant calcaneus could be probed. Hopefully, he continues developing granulation tissue over his large calcaneal wound and he can continue with limb salvage. - CTA results from a few months ago were also reviewed. They are promising, however, his lower extremity still appears consistent with severe peripheral arterial disease. Given his longstanding disease processes, even with the best care possible, he may lose this limb due to untreatable infection and/or his most functional outcome after adequate calcaneal resection may be a below knee amputation. We did discuss this as a potential outcome. - Dr. Donaldson will be back to take over care late this weekend. If anything acutely worsens, don't hesitate to reach back out to me as needed History of Present Illness Reason for Consultation: Right lower extremity infection Requesting Physician: Vince Donaldson DPM Attending Physician: Mayi Garsia DO History of Present Illness Patient seen at bedside for worsening right lower extremity ulceration and infection. He has been seen extensively in the past by my colleague Dr. Vince Donaldson. He has had wound care and surgical intervention after developing calcaneal osteomyelitis. The patient states it all started after he created an ulcer by removing a callus, then seeing another previous provider who wasn't a ble to get the ulcer healed. He had been doing well after a partial calcanectomy and fixation of a calcaneal pathologic fracture, but he has developed another infection in the same location now. He denies any systemic findings of infection and "feels good" but has noticed this right heel getting worse over the last few days prior to admission. Allergies Allergy/AdvReac Type Severity Reaction Status Date / Time ondansetron Allergy Intermediate confusion Unverified 04/14/22 22:47 bee venom protein (honey bee) Allergy Unknown SHORTNESS Verified 04/14/22 22:47 OF BREATH Home Medications Medication Instructions Recorded Confirmed Type amitriptyline 25 mg tablet 25 mg PO HS 09/11/19 04/14/22 History aspirin 81 mg tablet,delayed 81 mg PO QAM 09/11/19 04/14/22 History release (Alejo Low Dose Aspirin) epinephrine 0.3 mg/0.3 mL 0.3 mg subcut UD PRN Anaphylaxis 09/11/19 04/14/22 History injection, auto-injector (EpiPen) insulin glargine 100 unit/mL (3 48 unit subcut BID 09/11/19 04/14/22 History mL) subcutaneous pen (Basaglar KwikPen U-100 Insulin) insulin lispro 100 unit/mL 26 unit subcut AC 09/11/19 04/14/22 History subcutaneous pen (Humalog KwikPen (U-100) Insulin) rosuvastatin 20 mg tablet (Crestor) 10 mg PO QAM 09/11/19 04/14/22 History tamsulosin 0.4 mg capsule (Flomax) 0.4 mg PO HS 09/11/19 04/14/22 History diltiazem HCl 240 mg 240 mg PO QAM 05/29/20 04/14/22 History capsule,extended release 24 hr belatacept 250 mg intravenous 250 mg IV MONTHLY ##0 05/30/20 04/14/22 History solution pregabalin 150 mg capsule 150 mg PO PM 05/30/20 04/14/22 History acetaminophen 325 mg tablet 650 mg PO QID PRN Fever 11/19/21 04/14/22 History (Tylenol) sildenafil 25 mg tablet 25 mg PO UD PRN Edema 12/16/21 04/14/22 History lactobacillus combination no.4 3 3,000 mmu cells PO DAILY #80 caps 12/26/21 04/14/22 Rx billion cell capsule (Probiotic) polyethylene glycol 3350 17 gram 17 g PO DAILY PRN constipation #30 12/26/21 04/14/22 Rx oral powder packet (Miralax) ea clindamycin HCl 300 mg capsule 300 mg PO QID 04/14/22 04/14/22 History mycophenolate sodium 180 mg 360 mg PO BID 04/14/22 04/14/22 History tablet,delayed release Patient History Medical History Diabetes Fever Gastroparesis History of peritoneal dialysis Hypertension Surgical History Hx of kidney transplant September 2017 [facility] cole Status post right foot surgery Family History Other Family history non-contributory Social History Smoking Status: Never smoker Second Hand Exposure: No; Do You Dip or Chew Tobacco: No; Hx Alcohol Use: Yes Alcohol type: wine Hx Substance Use: No Preferred Language: Portuguese Communication Ability: Effective 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 Beliefs That Will Affect Care: None marital status: Current Living Situation: Spouse Other Information That Helps Us Care for You: No Feels Safe at Home: Yes Safety Concerns: Feels Safe At This Time Assistive Devices: Bedside Commode and Walker Assistive Devices Comment: none of these devises present Review of Systems Review of Systems: All systems reviewed & are unremarkable except as noted in HPI & below Constitutional: no fever and no chills Eyes: no eye pain Ear, Nose, Mouth, Throat: no ear pain and no ear discharge Respiratory: no cough and no chest congestion Cardiovascular: no chest pain Gastrointestinal: no abdominal pain, no nausea and no vomiting Genitourinary: no urinary frequency or no problem reported Musculoskeletal: + deformity, + swelling and + muscle weakness Integumentary: + new lesions, + non-healing lesions, + skin ulcer and + wounds Neurologic: + unsteadiness and + numbness Psychiatric: no behavioral changes and no depression Physical Exam Physical Exam: Vascular: DP/PT pulses non-palpable. B/l LE diffusely cool with atrophic skin, decreased hair growth, rubor, and multiple pinpoint, non-healing wounds noted. Diffuse edema noted with minimal varicosities noted. Local calor is noted to right calcaneus with erythema noted. CTA Reviewed reveals three vessel runoff as recent as a few months ago; limb looks much more avascular than CTA suggests. Derm: Large calcaneal ulceration noted with wound bed fibrotic; no deep probing to bone. Largest wound measures 4x3cm along the plantar aspect of the calcaneus. Upon sharp debridement, minimal blood loss was noted. Two smaller 1cm diameter ulcerations noted proximal to this larger lesion, along the course of the Achilles tendon. Upon sharp debridement of these, minimal purulent drainage noted. There is tunneling of approximately 5 cm, extending proximal from the larger calcaneal wound to these two smaller, more acutely infected ulcerations. After incision and drainage, no deep abscess identified. No significant purulent drainage identified deep; findings of gas on radiographic imaging more consistent with this tunneling than true gas gangrene. Neuro: Gross sensation is absent to the right lower extremity. Absent pain sensation from the ulceration is noted. Muscle tone is decreased to the right lower extremity. No abnormal reflexes noted. MSK: Muscle strength is adequate for ambulation but globally decreased. No crepitus or pain on ROM of lower extremity joints. Achilles tendon to right is palpably intact. Foot remains plantigrade, though heel is shortened due to chronic infection and pathologic fracture history. Constitutional: well developed and + ill appearing; no acute distress Eyes: PERRL, conjunctivae normal, anicteric sclerae ENMT: external ear and nose normal, oropharynx normal Neck: trachea midline, no thyromegaly Respiratory: normal respiratory effort, lungs clear to auscultation Cardiovascular: RRR, no murmur, no edema Musculoskeletal: Gait: + limp Skin: + ulcer, + skin tightening and + wound Neurologic: deep tendon reflexes 2+ bilaterally, plantar reflexes intact bilaterally and moves all extremities; + abnormal touch/pain/proprioception and + abnormal sensation to monofilament Results & Data ([facility]) Vital Signs (Past 12 Hours) Vital Signs Temp Pulse Resp BP Pulse Ox O2 Del Method 04/15/22 22:00 36.7 C 83 16 165/83 H 98 Room Air
[2022-04-16] MEDS: ADVANCED PROBIOTIC 1250 MG CAPSULE PO SCH (09:40)
[2022-04-16] MEDS: dilTIAZem HCL 240 MG CAPCR PO SCH (09:40)
[2022-04-16] MEDS: ASPIRIN 81 MG ECTAB PO SCH (09:40)
[2022-04-16] MEDS: ROSUVASTATIN CALCIUM 10 MG TAB PO SCH (09:40)
--- NOTE | 2022-04-16 09:50 | Nephrology Consultation ---
Date of Consultation April 16, 2022 Assessment & Plan (1) Renal transplant recipient: continue to hold MMF during admission >> reasonable to plan to hold for at least 2 wks given assisted infection; hospitalist team to d/w [facility] renal transplant which is reasonable daily bmp recommend dosing vanco by level if feasible appreciate consult; will follow w/ you (2) Osteomyelitis: f/u pending ID recs History of Present Illness Reason for Consultation: renal transplant w/ infection Requesting Physician: Dr Garsia Attending Physician: Mayi Garsia, DO History of Present Illness 56 y/o M whom I'm asked to follow for renal transplant care during admission for infection was admitted yesterday with nonhealing diabetic R heel ulcer w/CT showing calcaneal osteomyelitis. PMH includes 09/2018 donor renal transplant [facility] for DM/HTN, DM on insulin, CAD s/p stent, MATT on CPAP, HTN, HL, chronic osteomyelitis R heel (admitted w/ same 12/16-12/22). His last A1c is 9.1% here, down from 11% earlier. he follows w/[facility] transplant team. He is on belatacept and MMF for immunosuppression. he last had belatacept on 04/09, next dose for 05/07. Infectious dzs consult is pending. He is on ertapenem and vancomycin currently w/ stable/baseline allograft function. He feels well he states and denies dyspnea, poor po intake, n/v/d/c, chest pain, pain over allograft or new /worrisome voiding sx; no f/c. he tells me "they opened my wound to drain a pus pocket today but no pus was found in the wound pocket." Allergies Allergy/AdvReac Type Severity Reaction Status Date / Time ondansetron Allergy Intermediate confusion Unverified 04/14/22 22:47 bee venom protein (honey bee) Allergy Unknown SHORTNESS Verified 04/14/22 22:47 OF BREATH Home Medications Medication Instructions Recorded Confirmed Type amitriptyline 25 mg tablet 25 mg PO HS 09/11/19 04/14/22 History aspirin 81 mg tablet,delayed 81 mg PO QAM 09/11/19 04/14/22 History release (Alejo Low Dose Aspirin) epinephrine 0.3 mg/0.3 mL 0.3 mg subcut UD PRN Anaphylaxis 09/11/19 04/14/22 History injection, auto-injector (EpiPen) insulin glargine 100 unit/mL (3 48 unit subcut BID 09/11/19 04/14/22 History mL) subcutaneous pen (Basaglar KwikPen U-100 Insulin) insulin lispro 100 unit/mL 26 unit subcut AC 09/11/19 04/14/22 History subcutaneous pen (Humalog KwikPen (U-100) Insulin) rosuvastatin 20 mg tablet (Crestor) 10 mg PO QAM 09/11/19 04/14/22 History tamsulosin 0.4 mg capsule (Flomax) 0.4 mg PO HS 09/11/19 04/14/22 History diltiazem HCl 240 mg 240 mg PO QAM 05/29/20 04/14/22 History capsule,extended release 24 hr belatacept 250 mg intravenous 250 mg IV MONTHLY ##0 05/30/20 04/14/22 History solution pregabalin 150 mg capsule 150 mg PO PM 05/30/20 04/14/22 History acetaminophen 325 mg tablet 650 mg PO QID PRN Fever 11/19/21 04/14/22 History (Tylenol) sildenafil 25 mg tablet 25 mg PO UD PRN Edema 12/16/21 04/14/22 History lactobacillus combination no.4 3 3,000 mmu cells PO DAILY #80 caps 12/26/21 04/14/22 Rx billion cell capsule (Probiotic) polyethylene glycol 3350 17 gram 17 g PO DAILY PRN constipation #30 12/26/21 04/14/22 Rx oral powder packet (Miralax) ea clindamycin HCl 300 mg capsule 300 mg PO QID 04/14/22 04/14/22 History mycophenolate sodium 180 mg 360 mg PO BID 04/14/22 04/14/22 History tablet,delayed release Patient History Medical History Chronic osteomyelitis involving ankle and foot Diabetes Fever Gastroparesis History of peritoneal dialysis Hypertension Renal transplant recipient Surgical History Hx of kidney transplant September 2017 Prema Albarran Status post right foot surgery Family History Other Family history non-contributory Social History Smoking Status: Never smoker Second Hand Exposure: No; Do You Dip or Chew Tobacco: No; Hx Alcohol Use: Yes Alcohol type: wine Hx Substance Use: No Preferred Language: Zambian Communication Ability: Effective 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 Staff Doctor 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: No Beliefs That Will Affect Care: None marital status: Current Living Situation: Spouse Other Information That Helps Us Care for You: No Feels Safe at Home: Yes Safety Concerns: Feels Safe At This Time Assistive Devices: Bedside Commode and Walker Assistive Devices Comment: none of these devises present Review of Systems Review of Systems: All systems reviewed & are unremarkable except as noted in HPI & below Physical Exam Constitutional: well developed and well nourished Eyes: EOM intact bilaterally ENMT: Ears: no external ear abnormality Nose: no external nose abnormality Mouth: + dry oral mucous membranes Neck: no nuchal rigidity Respiratory: normal respiratory effort Auscultation: + diminished lung sounds Cardiovascular: RRR, no murmur, no edema Gastrointestinal (Abdomen): Inspection/Auscultation: normal bowel sounds Percussion/Palpation: abdomen soft; abdomen nontender NT allograft RLQ Musculoskeletal: Extremities: strength 5/5 throughout Skin: no rashes, warm and dry R foot wrapped Neurologic: lemons, fluent speech, no tremor Psychiatric: Orientation: oriented x 3 Speech: normal rate/rhythm/volume of speech Results & Data ([facility]) Vital Signs (Past 12 Hours) Vital Signs Temp Pulse Resp BP Pulse Ox O2 Del Method 04/15/22 22:00 36.7 C 83 16 165/83 H 98 Room Air Laboratory Results 04/16/22 07:55 04/16/22 07:55
[2022-04-16] MEDS: LANTUS PER UNIT CHARGE SQ SCH ×2 (09:51→22:17)
[2022-04-16] MEDS: INSULIN ASPART PER UNIT SC SCH ×4 (09:51→22:17)
[2022-04-16] MEDS: hydrALAZINE HCL 20 MG/ML VIAL IV PRN (13:43)
[2022-04-16] MEDS ORDERED: hydrALAZINE HCL 20 MG/ML VIAL IV PRN (14:01)
--- NOTE | 2022-04-16 14:07 | Hospitalist Progress Note ---
Date of Service April 16, 2022 Assessment & Plan (1) Infected surgical wound: (2) Osteomyelitis: (3) Failure of outpatient treatment: (4) Hx of kidney transplant: (5) Immunocompromised: (6) Diabetes mellitus with hyperglycemia: (7) Hypertension: Plan This is a 56-year-old male with PMH of type 2 diabetes, diabetic retinopathy, history of sleep apnea, chronic CAD s/p stents, hypertension, orthostatic hypotension, history of multiple closed fractures of cervical vertebrae, tho racic spine fracture, peripheral neuropathy, history of syncope and collapse, history of tobacco use disorder, status post kidney transplant, presents with RLE wounds. Non-healing RLE wounds Osteomyelitis of R heel History ofnonhealing diabetic right ankle, heel ulcer Following with Dr. Donaldson of podiatry, previously admitted with osteo of R heel wound s/p 6 weeks of Invanz. Wound re-opened and recently finished a 10 day course of IV Clinda Also with history of Achilles lengthening procedure with open wounds on RLE Wounds did not improve on Clinda and patient was directed to ED for further evaluation VSS, no leukocytosis Foot CT (04/14)- with findings highly suspicious for the presence of oste involving the inferior margin of the calcaneus as described. There is also increased soft tissue ulceration along the heel posteriorly. Additionally, there is swelling of the Achilles tendon and pre-Achilles soft tissues with air present characteristic of gas gangrene Bone Scan (04/15) - findings are compatible with cellulitis and osteomyelitis of the hindfoot and midfoot as well as a possible focus in the distal tibia Podiatry consulted. Right heel s/p I&D by Dr. Mar, Iodoform packing and wound care Discussed with Dr. Donaldson - will plan to round on patient Tuesday. Continue IV abx. Will need hardware removal and would benefit from bone biopsy in the future but can be done as an outpatient Blood culture (04/14) preliminary growing coag neg staph. Foot wound culture (04/14) preliminary growing group B strep. Repeating blood cultures tomorrow AM Echo obtained given gram positive bacteremia - no evidence of thrombus Continue empiric Invanz and vancomycin, history of polymicrobial growth ID consulted - recommendations pending Does have home health set up per CM Immunocompromised state History of renal transplant Discussed with Dr. Snyder and [facility] transplant team. Will hold mycophenolate for now and Transplant team can re-evaluate resuming at clinic appt on 04/28 Receives belatacept injections but not due until 05/07 DM II A1c 9.1 Per para educator, no insulin adjustment indicated SSI while in-patient BSG AC HS CAD S/p stent. Continue aspirin, statin HTN Continue diltiazem. Elevated BP 170/77 since last evening in setting of pain, anxious in hospital. Will schedule Tylenol for better pain control and continue to monitor DVT Ppx:SQ lovenox Code status: FULL Dispo: Admitted to med/surg Patient seen in collaboration with Dr. Garsia. Please see addendum. Admission and Anticipated Discharge Date Admission Date: April 14, 2022 Supervising Physician Co-Signing Physician Notes I have seen and examined the patient and have discussed the case with the provider above. I agree with the assessment and plan as stated. Patient is feeling well post procedure this morning. Will still need hardware removed. Awaiting ID recs. Nephro and transplant agrees with holding CellCept. Patient has no other complaints at this time. Doing well overall. Foot is bandaged wtih surgical dressing and was not unwrapped for evaluation. Cont current broad spectrum abx pending ID recommendations. DO Erin Garsia Seen and examined in [id number]. Feeling well today. Underwent I&D by podiatry this morning. at bedside. Patient admits to being anxious about wound and lower extremity and being in the hospital. notes his blood pressure is always elevated after imaging studies with contrast dye. Denies any fever or chills. Tolerating diet without issue. Denies any headache, chest pain or shortness of breath. No nausea, vomiting or abdominal pain. No dysuria, diarrhea or constipation. Review of Systems Review of Systems: At least ten systems reviewed and negative except as noted in the HPI. Physical Exam Physical Exam: Gen: WD/WN, NAD, lying in bed, A&Ox3 HEENT: Normocephalic, atraumatic, conjunctivae moist, sclerae anicteric, mucous membranes moist Lung: Clear to Auscultation bilaterally, no wheezes/rales/rhonchi Heart: Regular rate, regular rhythm, no murmurs, rubs, or gallops Abdomen: Soft, NT, ND +BS x 4 Extremities: + RLE wounds s/p I&D today wrapped in surgical dressing by podiatry. Proximal RLE well circumscribed wounds with overlying espinoza eschar. No erythema. No edema Skin: Warm, no rash Results & Data Results & Data ([facility]) Vital Signs (Past 12 Hours) Vital Signs Temp Pulse Resp BP Pulse Ox O2 Del Method 04/16/22 13:41 36.8 C 79 18 181/80 H 98 Room Air Laboratory Results Short CBC 04/16/22 Range/Units 07:55 WBC 6.38 (4.8-10.8) K/ul Hgb 11.4 L (14.0-18.0) g/dl Hct 36.3 L (40.1-51.0) % Plt Count 323 (130-400) K/uL BMP 04/16/22 07:55 Sodium 136 Potassium 4.4 Chloride 104 Carbon Dioxide 26 BUN 19 Creatinine 0.93 Glucose 141 H Calcium 9.[address] 04/14/22 20:28 CT foot RT wo con CLINICAL HISTORY: Pain in the heel with swelling. Evaluate for possible osteomyelitis COMPARISON STUDY: CTA of the right foot from 12/16/2021 CT DOSE: 147.41 mGy.cm TECHNIQUE: Standard CT of the right foot is performed without IV contrast. Multiplanar reconstruction is performed. A dose lowering technique was utilized adhering to the principles of ALARA. FINDINGS: Bones: Compared to the previous examination, the patient is status post internal fixation with screws seen transfixing an old calcaneal fracture. No acute fracture is seen. There is evidence for partial resection versus cortical destruction involving the inferior aspect of the calcaneus. The cortical margins are indistinct the findings are highly suspicious for the presence of osteomyelitis. The remaining bones are intact with no other findings suspicious for osteomyelitis. There are no lytic or blastic lesions. Joints: The subtalar joint is maintained. The remaining imaged joint spaces are maintained. The remaining bones are in anatomic alignment. Soft tissues: Compared to the previous examination, there is again soft tissue ulceration present along the posterior aspect of the heel. Additionally, there has been interval swelling of the Achilles tendon and pre-Achilles soft tissues with air present within the soft tissues. The findings are suspicious for gas gangrene. There are no focal fluid collections. IMPRESSION: 1. CT findings highly suspicious for the presence of osteomyelitis involving the inferior margin of the calcaneus as described. 2. There is also increased soft tissue ulceration along the heel posteriorly. 3. Additionally, there is swelling of the Achilles tendon and pre-Achilles soft tissues with air present characteristic of gas gangrene. ACT 112: Negative or not required by law. Electronically signed by: Aquiles Santos M.D. 04/15/2022 8:03 AM Bone Scan Nuclear Medicine 04/15/22 09:36 NM bone 3 phase ltd CLINICAL HISTORY: Rule out Right foot Osteomyelitis TECHNIQUE: Following the intravenous injection of 27.3 mCi of Tc-99m labeled MDP, immediate flow and blood pooling images of the bilateral feet were obtained. Additional selected static images of the bilateral feet were obtained after two hours. Comparison: None available at the time of this dictation. FINDINGS: On flow imaging, there is markedly asymmetric uptake on the right leg and foot. On delayed images, focal uptake is seen in the calcaneus and midfoot on the right, a focus of uptake is also seen in the distal tibia. IMPRESSION: Findings are compatible with cellulitis and osteomyelitis of the hindfoot and midfoot as well as a possible focus in the distal tibia. ACT 112: Negative or not required by law. Electronically signed by: Ferny Goodwin M.D. 04/15/2022 8:07 PM Foot X-Ray 04/15/22 09:43 XR foot RT min 3V routine CLINICAL HISTORY: Right heel swelling. COMPARISON STUDY: Right foot CT 04/14/2022 FINDINGS: There is a 5.3 cm skin ulceration at the posterior heel. Prior resection of the plantar aspect of the calcaneus. There are 2 screws transfixing the healing fractures within the calcaneus. Focal cortical erosion within the posterior aspect of the residual calcaneus which is highly suspicious for osteomyelitis. There is mild periprosthetic lucency at the head of the more inferior calcaneal screw. This could represent associated infection. Abnormal thickening and soft tissue gas at the visualized Achilles tendon. Basilar calcifications are noted. Old postoperative changes within the head of the first metatarsal. The Lisfranc joint is intact. IMPRESSION: 1. There is a 5.3 severe skin ulceration at the posterior heel. Deep to the skin ulceration there is a focal area of cortical erosion at the posterior calcaneus which is highly suspicious for ostial myelitis. 2. There is also mild periprosthetic lucency surrounding the head of the more inferior calcaneal screw which may represent an additional site of infection. 3. Abnormal thickening and soft tissue gas at the visualized Achilles tendon. This is consistent with infection from a gas-forming organism. ACT 112: Negative or not required by law. Electronically signed by: Mauricio Amaya M.D. 04/15/2022 10:37 AM (1) Diabetes mellitus with hyperglycemia Diabetes mellitus tank terminal gauger insulin use: with custodial use Diabetes mellitus type: type 2 Qualified Code(s): E11.65 - Type 2 diabetes mellitus with hyperglycemia; Z79.4 - alf (current) use of insulin (2) Hypertension Hypertension type: essential hypertension Qualified Code(s): I10 - Essential (primary) hypertension (3) Osteomyelitis Laterality: right Osteomyelitis location: foot Osteomyelitis type: unspecified type Qualified Code(s): M86.9 - Osteomyelitis, unspecified
[2022-04-16] MEDS ORDERED: ENOXAPARIN INJ 40 MG/0.4 ML SYR SQ SCH (17:15)
[2022-04-16] MEDS: ACETAMINOPHEN 500 MG TAB PO SCH (17:51)
[2022-04-16] MEDS ORDERED: Nursing to Pharmacy Communication SCH (18:00)
[2022-04-16] MEDS: ENOXAPARIN INJ 40 MG/0.4 ML SYR SQ SCH (21:32)
[2022-04-16] MEDS: AMITRIPTYLINE HCL 25 MG TAB PO SCH (21:33)
[2022-04-16] MEDS: TAMSULOSIN HCL 0.4 MG CAP PO SCH (21:34)
[2022-04-16] MEDS: PREGABALIN 150 MG CAP PO SCH (21:38)
[2022-04-16] MEDS: ERTAPENEM SODIUM 1,000 MG in SYRINGE 0 ML IV SCH (22:18)
[2022-04-17] MEDS: ACETAMINOPHEN 500 MG TAB PO SCH ×3 (01:40→17:38)
[2022-04-17 07:09] LABS: Hemoglobin 11.8 g/dl (14.0-18.0); Mean Corpuscular Hemoglobin 25.9 pg (25.0-34.0); Mean Corpuscular Hgb Conc 31.9 g/dL (32.0-36.0); Mean Corpuscular Volume 81.3 fL (80.0-100.0); Mean Platelet Volume 9.3 fL (9.4-12.4); Platelet Count 328 K/uL (130-400); RDW Coefficient of Variation 16.2 % (11.5-14.5); Red Blood Count 4.55 M/uL (4.63-6.08); White Blood Count 6.66 K/ul (4.8-10.8)
[2022-04-17 07:33] LABS: BUN Creatinine Ratio 23.9 (10-20); Calcium 9.6 mg/dl (8.5-10.1); Creatinine Clr Calc Pharmacy 119.1 ml/min; Est GFR (African American) 106.6 ml/min; Potassium 4.2 mmol/L (3.5-5.1)
--- NOTE | 2022-04-17 08:13 | Pharmacy Report ---
Pharmacy PK ABX Note - Date of Service April 17, 2022 - Assessment and Plan Assessment 56 year old M receiving empiric vancomycin and ertapenem for treatment of nonhealing diabetic calcaneal ulcer. Pertinent PMH includes history of renal transplant (on immunosuppressant therapy), s/p right calcaneal ostectomy (12/19/21 and 12/21/21) with report of wound opening up, and T2DM. Blood cultures x 2 and right foot culture pending. Day # 1 of antimicrobial therapy. Plan Vancomycin * Loading dose: 2250 mg IV ((20 mg/kg) * Maintenance dose: 1250 mg IV every 12 hours * Regimen is predicted to achieve target AUC/IVETTE of 400-600 mg/L.hr * Will plan for random/trough level as determined by clinical picture Ertapenem * 1 g IV q24h - appropriate based on renal function Pharmacy will continue to follow and will adjust dose/frequency as necessary. Thank you. Pharmacy has transitioned to AUC monitoring for vancomycin. AUC/IVETTE is the preferred PK/PD target and is associated with decreased risk of nephrotoxicity compared to traditional trough targets.
[2022-04-17] MEDS ORDERED: VANCOMYCIN LEVEL ONE (08:30)
[2022-04-17] MEDS: LANTUS PER UNIT CHARGE SQ SCH ×2 (08:32→21:07)
[2022-04-17] MEDS: INSULIN ASPART PER UNIT SC SCH ×4 (08:32→21:07)
[2022-04-17] MEDS: VANCOMYCIN HCL 1,250 MG in SODIUM CHLORIDE 0.9% 250 ML IV SCH ×2 (08:36→20:49)
[2022-04-17] MEDS: ADVANCED PROBIOTIC 1250 MG CAPSULE PO SCH (08:39)
[2022-04-17] MEDS: ROSUVASTATIN CALCIUM 10 MG TAB PO SCH (08:39)
[2022-04-17] MEDS: ASPIRIN 81 MG ECTAB PO SCH (08:39)
[2022-04-17] MEDS: dilTIAZem HCL 240 MG CAPCR PO SCH (08:39)
[2022-04-17] MEDS: HEPARIN 100 UNIT/ML 5ML FLUSH FLUSH PRN ×2 (10:30→22:25)
--- NOTE | 2022-04-17 12:55 | Hospitalist Progress Note ---
Date of Service April 17, 2022 Assessment & Plan (1) Infected surgical wound: (2) Osteomyelitis: (3) Failure of outpatient treatment: (4) Hx of kidney transplant: (5) Immunocompromised: (6) Diabetes mellitus with hyperglycemia: (7) Hypertension: Plan This is a 56-year-old male with PMH of type 2 diabetes, diabetic retinopathy, history of sleep apnea, chronic CAD s/p stents, hypertension, orthostatic hypotension, history of multiple closed fractures of cervical vertebrae, tho racic spine fracture, peripheral neuropathy, history of syncope and collapse, history of tobacco use disorder, status post kidney transplant, presents with RLE wounds. Non-healing RLE wounds Osteomyelitis of R heel History ofnonhealing diabetic right ankle, heel ulcer Following with Dr. Donaldson of podiatry, previously admitted with osteo of R heel wound s/p 6 weeks of Invanz. Wound re-opened and recently finished a 10 day course of IV Clinda Also with history of Achilles lengthening procedure with open wounds on RLE Wounds did not improve on Clinda and patient was directed to ED for further evaluation VSS, no leukocytosis Foot CT (04/14)- with findings highly suspicious for the presence of osteomyelitis involving the inferior margin of the calcaneus as described. There is also increased soft tissue ulceration along the heel posteriorly. Additionally, there is swelling of the Achilles tendon and pre-Achilles soft tissues with air present characteristic of gas gangrene Bone Scan (04/15) - findings are compatible with cellulitis and osteomyelitis of the hindfoot and midfoot as well as a possible focus in the distal tibia Podiatry consulted. Right heel s/p I&D by Dr. Mar, Iodoform packing and wound care Discussed with Dr. Donaldson - will plan to round on patient Tuesday. Continue IV abx. Will need hardware removal and would benefit from bone biopsy in the future but can be done as an outpatient Blood culture (04/14) preliminary growing coag neg staph. Foot wound culture (04/14) preliminary growing group B strep. Repeating blood cultures 04/17 pending. Echo obtained given gram positive bacteremia - no evidence of thrombus Continue empiric Invanz and vancomycin, history of polymicrobial growth and high risk of requiring amputation. ID consulted - recommendations pending Does have home health set up per CM Immunocompromised state History of renal transplant Discussed with Dr. Snyder and [facility] transplant team. Will hold mycophenolate for now and Transplant team can re-evaluate resuming at clinic appt on 04/28 Receives belatacept injections but not due until 05/07 DM II A1c 9.1 Per engineering group manager, no insulin adjustment indicated SSI while in-patient BSG AC HS CAD S/p stent. Continue aspirin, statin HTN Continue diltiazem. Improved on scheduled Tylenol. DVT Ppx:SQ lovenox Code status: FULL Dispo: Admitted to med/surg Mayi Garsia DO [facility] Hospitalist Admission and Anticipated Discharge Date Admission Date: April 14, 2022 Subjective Seen and examined in 319-1. Feeling well today. Underwent I&D by podiatry this morning. at bedside. Patient admits to being anxious about wound and lower extremity and being in the hospital. notes his blood pressure is always elevated after imaging studies with contrast dye. Denies any fever or chills. Tolerating diet without issue. Denies any headache, chest pain or shortness of breath. No nausea, vomiting or abdominal pain. No dysuria, diarrhea or constipation. Review of Systems Review of Systems: At least ten systems reviewed and negative except as noted in the HPI. Physical Exam Physical Exam: CONSTITUTIONAL: WNWD, vitals as above, generally well- appearing, NAD EYES: normal conjunctivae, no scleral icterus ENT: external ear and nose normal, MMM NECK: trachea midline, RESPIRATORY: clear to auscultation bilaterally, no crackles, rales or wheezes, normal respiratory effort CARDIOVASCULAR: regular rate and rhythm, S1 and 2 heard without murmurs, gallops or rubs, no JVD, no peripheral edema CHEST: inspection of chest was normal GASTROINTESTINAL: soft, nontender, ND, no guarding MUSCULOSKELETAL: strength 5/5 throughout, head is normocephalic SKIN: warm and dry NEUROLOGIC: CN 2-12 grossly intact, no sensory deficit, normal cognition, normal speech, no tremor PSYCHIATRIC: alert cooperative and oriented to person, place and time. Euthymic mood, makes good eye contact, language grossly intact, recent and remote memory grossly intact. Results & Data Results & Data ([facility]) Vital Signs (Past 12 Hours) Vital Signs Temp Pulse Resp BP Pulse Ox O2 Del Method 04/17/22 08:30 36.3 C L 67 18 114/68 97 Room Air Laboratory Results Short CBC 04/17/22 Range/Units 06:45 WBC 6.66 (4.8-10.8) K/ul Hgb 11.8 L (14.0-18.0) g/dl Hct 37.0 L (40.1-51.0) % Plt Count 328 (130-400) K/uL BMP 04/17/22 06:45 Sodium 137 Potassium 4.2 Chloride 104 Carbon Dioxide 27 BUN 22 Creatinine 0.92 Glucose 133 H Calcium 9.6 Medications Administered Current Inpatient Medications Acetaminophen (Acetaminophen 500 Mg Tab) 1,000 mg PO Q8H JOSE Stop: 05/16/22 16:44 Last Admin: 04/17/22 08:39 Dose: 1,000 mg Amitriptyline HCl (Amitriptyline Hcl 25 Mg Tab) 25 mg PO HS [facility] Stop: 05/15/22 20:59 Last Admin: 04/16/22 21:33 Dose: 25 mg Aspirin (Aspirin 81 Mg Ectab) 81 mg PO QAM JOSE Stop: 05/15/22 08:59 Last Admin: 04/17/22 08:39 Dose: 81 mg Dextrose (Dextrose 50% 50 Ml Syringe) 25 - 50 ml IV UD PRN; Protocol PRN Reason: Hypoglycemia Protocol Stop: 05/15/22 00:59 Diltiazem HCl (Diltiazem Hcl 240 Mg Capcr) 240 mg PO QAM [facility] Stop: 05/15/22 08:59 Last Admin: 04/17/22 08:39 Dose: 240 mg Enoxaparin Sodium (Enoxaparin Inj 40 Mg/0.4 Ml Syr) 40 mg SQ Q24H JOSE Stop: 05/16/22 20:59 Last Admin: 04/16/22 21:32 Dose: 40 mg Epinephrine HCl (Epinephrine Inj 1 Mg/Ml Amp) 0.3 mg IM ONE PRN PRN Reason: ANAPHYLAXIS Glucagon (Glucagon For Inj 1 Mg Vial) 1 mg IM UD PRN; Protocol PRN Reason: Hypoglycemia Protocol Stop: 05/15/22 00:59 Glucose (Glucose 40% Gel 15 Gm Tube) 15 - 30 gm PO UD PRN; Protocol PRN Reason: Hypoglycemia Protocol Stop: 05/15/22 00:59 Glucose (Glucose 10 Tab/Tube) 4 - 8 tab PO UD PRN; Protocol PRN Reason: Hypoglycemia Protocol Stop: 05/15/22 00:59 Heparin Sodium (Porcine) (Heparin 100 Unit/Ml 5ml Flush) 5 ml FLUSH PRN PRN PRN Reason: Flush Stop: 05/15/22 02:35 Last Admin: 04/17/22 10:30 Dose: 5 ml Ertapenem 1,000 mg/ Syringe 10 mls @ 2 mls/min IV Q24H JOSE Stop: 04/22/22 20:59 Last Admin: 04/16/22 22:18 Dose: 2 mls/min Vancomycin HCl 1,250 mg/ (Sodium Chloride) 275 mls @ 200 mls/hr IV Q12H JOSE Stop: 05/27/22 08:59 Last Infusion: 04/17/22 10:01 Dose: Infused Insulin Aspart (Insulin Aspart Per Unit) 0 units SC ACHS JOSE Stop: 05/15/22 07:29 Last Admin: 04/17/22 08:32 Dose: 9 units Insulin Glargine (Lantus Per Unit Charge) 48 units SQ BID JOSE Stop: 05/15/22 08:59 Last Admin: 04/17/22 08:32 Dose: 48 units Lactobacillus Acidophilus (Advanced Probiotic 1250 Mg Capsule) 2 cap PO DAILY JOSE Stop: 05/15/22 08:59 Last Admin: 04/17/22 08:39 Dose: 2 cap Miscellaneous (Carbohydrates For Hypoglycemia ) 15 - 30 gm PO UD PRN PRN Reason: Hypoglycemia Treatment Stop: 05/15/22 00:59 Miscellaneous Information (Vancomycin Consult Active) 1 each N/A UD PRN PRN Reason: Consult Stop: 05/15/22 00:33 Mycophenolate Sodium (Mycophenolate Sodium 180 Mg Tab) 360 mg PO BID JOSE Stop: 05/15/22 08:59 Last Admin: 04/15/22 20:01 Dose: 360 mg Ondansetron HCl (Ondansetron Inj 2 Mg/Ml 2 Ml Vial) 4 mg IV Q6H PRN PRN Reason: Nausea Stop: 05/15/22 00:33 Polyethylene Glycol (Polyethylene (Miralax) 17 Gm Pack) 17 gm PO DAILY PRN PRN Reason: Constipation Stop: 05/15/22 00:33 Pregabalin (Pregabalin 150 Mg Cap) 150 mg PO PM JOSE Stop: 05/15/22 20:59 Last Admin: 04/16/22 21:38 Dose: 150 mg Rosuvastatin Calcium (Rosuvastatin Calcium 10 Mg Tab) 10 mg PO QAM [facility] Stop: 05/15/22 08:59 Last Admin: 04/17/22 08:39 Dose: 10 mg Tamsulosin HCl (Tamsulosin Hcl 0.4 Mg Cap) 0.4 mg PO [facility] Stop: 05/15/22 20:59 Last Admin: 04/16/22 21:34 Dose: 0.4 mg (1) Osteomyelitis Laterality: right Osteomyelitis location: foot Osteomyelitis type: unspecified type Qualified Code(s): M86.9 - Osteomyelitis, unspecified (2) Diabetes mellitus with hyperglycemia Diabetes mellitus chcf insulin use: with computer terminal operator use Diabetes mellitus type: type 2 Qualified Code(s): E11.65 - Type 2 diabetes mellitus with hyperglycemia; Z79.4 - terminal superintendent (current) use of insulin (3) Hypertension Hypertension type: essential hypertension Qualified Code(s): I10 - Essential (primary) hypertension
[2022-04-17] MEDS: AMITRIPTYLINE HCL 25 MG TAB PO SCH (20:46)
[2022-04-17] MEDS: ERTAPENEM SODIUM 1,000 MG in SYRINGE 0 ML IV SCH (20:47)
[2022-04-17] MEDS: ENOXAPARIN INJ 40 MG/0.4 ML SYR SQ SCH (20:47)
[2022-04-17] MEDS: TAMSULOSIN HCL 0.4 MG CAP PO SCH (20:48)
[2022-04-17] MEDS: PREGABALIN 150 MG CAP PO SCH (20:48)
[2022-04-18] MEDS: ACETAMINOPHEN 500 MG TAB PO SCH ×4 (00:48→23:47)
[2022-04-18] MEDS: HEPARIN 100 UNIT/ML 5ML FLUSH FLUSH PRN ×3 (06:05→22:03)
[2022-04-18 07:00] LABS: Hematocrit (blood only) 37.2 % (40.1-51.0); Hemoglobin 11.8 g/dl (14.0-18.0); Mean Corpuscular Hemoglobin 25.6 pg (25.0-34.0); Mean Corpuscular Hgb Conc 31.7 g/dL (32.0-36.0); Mean Corpuscular Volume 80.7 fL (80.0-100.0); Mean Platelet Volume 9.5 fL (9.4-12.4); Platelet Count 337 K/uL (130-400); RDW Coefficient of Variation 16.1 % (11.5-14.5); RDW Standard Deviation 47.5 fL (36.4-46.3); Red Blood Count 4.61 M/uL (4.63-6.08); White Blood Count 5.73 K/ul (4.8-10.8)
[2022-04-18 07:10] LABS: BUN Creatinine Ratio 26.4 (10-20); C Reactive Protein 2.77 mg/dl (0-0.5); Calcium 9.6 mg/dl (8.5-10.1); Creatinine Clr Calc Pharmacy 120.4 ml/min; Est GFR (Non-African American) 93.2 ml/min; Potassium 4.1 mmol/L (3.5-5.1)
[2022-04-18] MEDS: VANCOMYCIN HCL 1,250 MG in SODIUM CHLORIDE 0.9% 250 ML IV SCH ×2 (08:06→20:27)
[2022-04-18] MEDS: dilTIAZem HCL 240 MG CAPCR PO SCH (08:06)
[2022-04-18] MEDS: ADVANCED PROBIOTIC 1250 MG CAPSULE PO SCH (08:07)
[2022-04-18] MEDS: ROSUVASTATIN CALCIUM 10 MG TAB PO SCH (08:07)
[2022-04-18] MEDS: ASPIRIN 81 MG ECTAB PO SCH (08:08)
[2022-04-18] MEDS: LANTUS PER UNIT CHARGE SQ SCH ×2 (09:06→21:21)
[2022-04-18] MEDS: INSULIN ASPART PER UNIT SC SCH ×4 (09:06→21:13)
--- NOTE | 2022-04-18 14:40 | Hospitalist Progress Note ---
Date of Service April 18, 2022 Assessment & Plan (1) Infected surgical wound: (2) Osteomyelitis: (3) Failure of outpatient treatment: (4) Hx of kidney transplant: (5) Immunocompromised: (6) Diabetes mellitus with hyperglycemia: (7) Hypertension: Plan This is a 56-year-old male with PMH of type 2 diabetes, diabetic retinopathy, history of sleep apnea, chronic CAD s/p stents, hypertension, orthostatic hypotension, history of multiple closed fractures of cervical vertebrae, tho racic spine fracture, peripheral neuropathy, history of syncope and collapse, history of tobacco use disorder, status post kidney transplant, presents with RLE wounds. Non-healing RLE wounds Osteomyelitis of R heel History ofnonhealing diabetic right ankle, heel ulcer Following with Dr. Donaldson of podiatry, previously admitted with osteo of R heel wound s/p 6 weeks of Invanz. Wound re-opened and recently finished a 10 day course of IV Clinda Also with history of Achilles lengthening procedure with open wounds on RLE Wounds did not improve on Clinda and patient was directed to ED for further evaluation VSS, no leukocytosis Foot CT (04/14)- with findings highly suspicious for the presence of osteomyelitis involving the inferior margin of the calcaneus as described. There is also increased soft tissue ulceration along the heel posteriorly. Additionally, there is swelling of the Achilles tendon and pre-Achilles soft tissues with air present characteristic of gas gangrene Bone Scan (04/15) - findings are compatible with cellulitis and osteomyelitis of the hindfoot and midfoot as well as a possible focus in the distal tibia Podiatry consulted. Right heel s/p I&D by Dr. Mar, Iodoform packing and wound care Discussed with Dr. Donaldson - will plan to round on patient Tuesday. Continue IV abx. Will need hardware removal and would benefit from bone biopsy in the future but can be done as an outpatient Blood culture (04/14) preliminary growing coag neg staph. Foot wound culture (04/14) preliminary growing group B strep. Repeating blood cultures 04/17 pending. Echo obtained given gram positive bacteremia - no evidence of thrombus Continue empiric Invanz and vancomycin, history of polymicrobial growth and high risk of requiring amputation. ID consulted - recommendations pending Does have home health set up per CM Immunocompromised state History of renal transplant Discussed with Dr. Snyder and [facility] transplant team. Will hold mycophenolate for now and Transplant team can re-evaluate resuming at clinic appt on 04/28 Receives belatacept injections but not due until 05/07 DM II A1c 9.1 Per hospice educator, no insulin adjustment indicated SSI while in-patient BSG AC HS CAD S/p stent. Continue aspirin, statin HTN Continue diltiazem. Improved on scheduled Tylenol. DVT Ppx:SQ lovenox Code status: FULL Dispo: Admitted to med/surg Mayi Garsia DO [facility] Hospitalist Admission and Anticipated Discharge Date Admission Date: April 14, 2022 Subjective 56-year-old man admitted for worsening of right foot wound. I&D by podiatry on 04/16. Currently there is a concern for persistent/recurrent osteomyelitis versus postoperative changes. Infection appears present with purulent drainage from wounds on leg. Patient is expressing concern over external fixator scars where there is still a scab with delayed healing. Deferred this to podiatry and encourage patient not to remove the scab Patient otherwise has no complaints of pain, chest pain, shortness of breath or other issues. He is afebrile. He is remaining nonweightbearing to the right leg Review of Systems Review of Systems: All systems reviewed negative except as indicated above. Physical Exam Physical Exam: CONSTITUTIONAL: WNWD, vitals as above, generally well- appearing, NAD EYES: normal conjunctivae, no scleral icterus ENT: external ear and nose normal, MMM NECK: trachea midline, RESPIRATORY: clear to auscultation bilaterally, no crackles, rales or wheezes, normal respiratory effort CARDIOVASCULAR: regular rate and rhythm, S1 and 2 heard without murmurs, gallops or rubs, no JVD, no peripheral edema CHEST: inspection of chest was normal GASTROINTESTINAL: soft, nontender, ND, no guarding MUSCULOSKELETAL: strength 5/5 throughout, head is normocephalic SKIN: warm and dry NEUROLOGIC: CN 2-12 grossly intact, no sensory deficit, normal cognition, normal speech, no tremor PSYCHIATRIC: alert cooperative and oriented to person, place and time. Euthymic mood, makes good eye contact, language grossly intact, recent and remote memory grossly intact. Results & Data Results & Data ([facility]) Vital Signs (Past 12 Hours) Vital Signs Temp Pulse Resp BP Pulse Ox O2 Del Method 04/18/22 07:52 36.3 C L 62 18 135/86 99 Room Air Laboratory Results Short CBC 04/18/22 Range/Units 06:04 WBC 5.73 (4.8-10.8) K/ul Hgb 11.8 L (14.0-18.0) g/dl Hct 37.2 L (40.1-51.0) % Plt Count 337 (130-400) K/uL BMP 04/18/22 06:04 Sodium 138 Potassium 4.1 Chloride 105 Carbon Dioxide 26 BUN 24 H Creatinine 0.91 Glucose 92 Calcium 9.6 Medications Administered Current Inpatient Medications Acetaminophen (Acetaminophen 500 Mg Tab) 1,000 mg PO Q8H JOSE Stop: 05/16/22 16:44 Last Admin: 04/18/22 08:07 Dose: 1,000 mg Amitriptyline HCl (Amitriptyline Hcl 25 Mg Tab) 25 mg PO HS [facility] Stop: 05/15/22 20:59 Last Admin: 04/17/22 20:46 Dose: 25 mg Aspirin (Aspirin 81 Mg Ectab) 81 mg PO QAM [facility] Stop: 05/15/22 08:59 Last Admin: 04/18/22 08:08 Dose: 81 mg Dextrose (Dextrose 50% 50 Ml Syringe) 25 - 50 ml IV UD PRN; Protocol PRN Reason: Hypoglycemia Protocol Stop: 05/15/22 00:59 Diltiazem HCl (Diltiazem Hcl 240 Mg Capcr) 240 mg PO QAM [facility] Stop: 05/15/22 08:59 Last Admin: 04/18/22 08:06 Dose: 240 mg Enoxaparin Sodium (Enoxaparin Inj 40 Mg/0.4 Ml Syr) 40 mg SQ Q24H JOSE Stop: 05/16/22 20:59 Last Admin: 04/17/22 20:47 Dose: 40 mg Epinephrine HCl (Epinephrine Inj 1 Mg/Ml Amp) 0.3 mg IM ONE PRN PRN Reason: ANAPHYLAXIS Glucagon (Glucagon For Inj 1 Mg Vial) 1 mg IM UD PRN; Protocol PRN Reason: Hypoglycemia Protocol Stop: 05/15/22 00:59 Glucose (Glucose 40% Gel 15 Gm Tube) 15 - 30 gm PO UD PRN; Protocol PRN Reason: Hypoglycemia Protocol Stop: 05/15/22 00:59 Glucose (Glucose 10 Tab/Tube) 4 - 8 tab PO UD PRN; Protocol PRN Reason: Hypoglycemia Protocol Stop: 05/15/22 00:59 Heparin Sodium (Porcine) (Heparin 100 Unit/Ml 5ml Flush) 5 ml FLUSH PRN PRN PRN Reason: Flush Stop: 05/15/22 02:35 Last Admin: 04/18/22 09:57 Dose: 5 ml Ertapenem 1,000 mg/ Syringe 10 mls @ 2 mls/min IV Q24H JOSE Stop: 04/22/22 20:59 Last Admin: 04/17/22 20:47 Dose: 2 mls/min Vancomycin HCl 1,250 mg/ (Sodium Chloride) 275 mls @ 200 mls/hr IV Q12H JOSE Stop: 05/27/22 08:59 Last Infusion: 04/18/22 09:52 Dose: Infused Insulin Aspart (Insulin Aspart Per Unit) 0 units SC ACHS JOSE Stop: 05/15/22 07:29 Last Admin: 04/18/22 12:54 Dose: 4 units Insulin Glargine (Lantus Per Unit Charge) 48 units SQ BID JOSE Stop: 05/15/22 08:59 Last Admin: 04/18/22 09:06 Dose: 48 units Lactobacillus Acidophilus (Advanced Probiotic 1250 Mg Capsule) 2 cap PO DAILY JOSE Stop: 05/15/22 08:59 Last Admin: 04/18/22 08:07 Dose: 2 cap Miscellaneous (Carbohydrates For Hypoglycemia ) 15 - 30 gm PO UD PRN PRN Reason: Hypoglycemia Treatment Stop: 05/15/22 00:59 Miscellaneous Information (Vancomycin Consult Active) 1 each N/A UD PRN PRN Reason: Consult Stop: 05/15/22 00:33 Mycophenolate Sodium (Mycophenolate Sodium 180 Mg Tab) 360 mg PO BID JOSE Stop: 05/15/22 08:59 Last Admin: 04/15/22 20:01 Dose: 360 mg Ondansetron HCl (Ondansetron Inj 2 Mg/Ml 2 Ml Vial) 4 mg IV Q6H PRN PRN Reason: Nausea Stop: 05/15/22 00:33 Polyethylene Glycol (Polyethylene (Miralax) 17 Gm Pack) 17 gm PO DAILY PRN PRN Reason: Constipation Stop: 05/15/22 00:33 Pregabalin (Pregabalin 150 Mg Cap) 150 mg PO PM JOSE Stop: 05/15/22 20:59 Last Admin: 04/17/22 20:48 Dose: 150 mg Rosuvastatin Calcium (Rosuvastatin Calcium 10 Mg Tab) 10 mg PO QAM [facility] Stop: 05/15/22 08:59 Last Admin: 04/18/22 08:07 Dose: 10 mg Tamsulosin HCl (Tamsulosin Hcl 0.4 Mg Cap) 0.4 mg PO HS [facility] Stop: 05/15/22 20:59 Last Admin: 04/17/22 20:48 Dose: 0.4 mg (1) Osteomyelitis Laterality: right Osteomyelitis location: foot Osteomyelitis type: unspecified type Qualified Code(s): M86.9 - Osteomyelitis, unspecified (2) Diabetes mellitus with hyperglycemia Diabetes mellitus detention insulin use: with circuit breaker assembler use Diabetes mellitus type: type 2 Qualified Code(s): E11.65 - Type 2 diabetes mellitus with hyperglycemia; Z79.4 - long-term (current) use of insulin (3) Hypertension Hypertension type: essential hypertension Qualified Code(s): I10 - Essential (primary) hypertension
[2022-04-18] MEDS: ERTAPENEM SODIUM 1,000 MG in SYRINGE 0 ML IV SCH (20:27)
[2022-04-18] MEDS: PREGABALIN 150 MG CAP PO SCH (20:27)
[2022-04-18] MEDS: TAMSULOSIN HCL 0.4 MG CAP PO SCH (20:27)
[2022-04-18] MEDS: AMITRIPTYLINE HCL 25 MG TAB PO SCH (20:28)
[2022-04-18] MEDS: ENOXAPARIN INJ 40 MG/0.4 ML SYR SQ SCH (20:28)
[2022-04-19] MEDS: HEPARIN 100 UNIT/ML 5ML FLUSH FLUSH PRN ×3 (07:37→22:54)
[2022-04-19] MEDS: ADVANCED PROBIOTIC 1250 MG CAPSULE PO SCH (08:13)
[2022-04-19] MEDS: ACETAMINOPHEN 500 MG TAB PO SCH ×2 (08:13→16:32)
[2022-04-19] MEDS: ROSUVASTATIN CALCIUM 10 MG TAB PO SCH (08:13)
[2022-04-19] MEDS: dilTIAZem HCL 240 MG CAPCR PO SCH (08:13)
[2022-04-19] MEDS: VANCOMYCIN HCL 1,250 MG in SODIUM CHLORIDE 0.9% 250 ML IV SCH (08:15)
--- NOTE | 2022-04-19 08:23 | Surgery Consultation ---
Date of Consultation April 19, 2022 Assessment & Plan (1) Chronic osteomyelitis involving ankle and foot: Patient seen, evaluated, and treated. I reviewed explant of hardware to right heel as well as bone biopsy possible partial resection of calcaneus. I reviewed procedure in detail as well as postoperative recovery. I discussed expectations and patient's current weightbearing status. All questions answered. I have discussed procedure in detail as well as postoperative recovery. All potential risks, benefits, complications, alternatives, rehab, potential for incomplete relief of symptoms, need for further surgery, DVT, PE, , persistent pain, swelling, scarring, weakness, neurovascular, wound com plications and potential for amputations were discussed with patient. Unwanted outcomes such as, but not limited to were reviewed including under correction, overcorrection, return of deformity, infection. All questions were answered. Patient has decided to proceed with procedure as indicated. History of Present Illness Attending Physician: Mayi Garsia, History of Present Illness Patient seen at bedside resting comfortably. He is well known to me from prior surgical care. Patient developed wet gangrene to right heel requiring resection of right calcaneus earlier in 2021. He then developed pathologic calcaneus fracture requiring ORIF. He presented recently to [facility] ED with signs and symptoms of Right foot cellulitis. Foot culture grew Group B Strep. X-ray, CT, and Bone scan show suspicion for OM of calcaneus. Allergies Allergy/AdvReac Type Severity Reaction Status Date / Time ondansetron Allergy Intermediate confusion Unverified 04/14/22 22:47 bee venom protein (honey bee) Allergy Unknown SHORTNESS Verified 04/14/22 22:47 OF BREATH Home Medications Medication Instructions Recorded Confirmed Type amitriptyline 25 mg tablet 25 mg PO HS 09/11/19 04/14/22 History aspirin 81 mg tablet,delayed 81 mg PO QAM 09/11/19 04/14/22 History release (Alejo Low Dose Aspirin) epinephrine 0.3 mg/0.3 mL 0.3 mg subcut UD PRN Anaphylaxis 09/11/19 04/14/22 History injection, auto-injector (EpiPen) insulin glargine 100 unit/mL (3 48 unit subcut BID 09/11/19 04/14/22 History mL) subcutaneous pen (Basaglar KwikPen U-100 Insulin) insulin lispro 100 unit/mL 26 unit subcut AC 09/11/19 04/14/22 History subcutaneous pen (Humalog KwikPen (U-100) Insulin) rosuvastatin 20 mg tablet (Crestor) 10 mg PO QAM 09/11/19 04/14/22 History tamsulosin 0.4 mg capsule (Flomax) 0.4 mg PO HS 09/11/19 04/14/22 History diltiazem HCl 240 mg 240 mg PO QAM 05/29/20 04/14/22 History capsule,extended release 24 hr belatacept 250 mg intravenous 250 mg IV MONTHLY ##0 05/30/20 04/14/22 History solution pregabalin 150 mg capsule 150 mg PO PM 05/30/20 04/14/22 History acetaminophen 325 mg tablet 650 mg PO QID PRN Fever 11/19/21 04/14/22 History (Tylenol) sildenafil 25 mg tablet 25 mg PO UD PRN Edema 12/16/21 04/14/22 History lactobacillus combination no.4 3 3,000 mmu cells PO DAILY #80 caps 12/26/21 04/14/22 Rx billion cell capsule (Probiotic) polyethylene glycol 3350 17 gram 17 g PO DAILY PRN constipation #30 12/26/21 04/14/22 Rx oral powder packet (Miralax) ea clindamycin HCl 300 mg capsule 300 mg PO QID 04/14/22 04/14/22 History mycophenolate sodium 180 mg 360 mg PO BID 04/14/22 04/14/22 History tablet,delayed release Patient History Medical History (Updated 04/19/22 @ 08:27 by Vince Donaldson DPM, MS) Chronic osteomyelitis involving ankle and foot Diabetes Fever Gastroparesis History of peritoneal dialysis Hypertension Renal transplant recipient Surgical History Hx of kidney transplant September 2017 Prema Albarran Status post right foot surgery Family History Other Family history non-contributory Social History Smoking Status: Never smoker Second Hand Exposure: No; Do You Dip or Chew Tobacco: No; Hx Alcohol Use: Yes Alcohol type: wine Hx Substance Use: No Preferred Language: Maori Communication Ability: Effective J2Ee Application Developer Required: No Beliefs That Will Affect Care: None marital status: Current Living Situation: Spouse Other Information That Helps Us Care for You: No Feels Safe at Home: Yes Safety Concerns: Feels Safe At This Time Assistive Devices: Bedside Commode and Walker Assistive Devices Comment: none of these devises present Review of Systems Review of Systems: All systems reviewed & are unremarkable except as noted in HPI & below Physical Exam Constitutional: WD/WN, vitals as above ENMT: external ear and nose normal, oropharynx normal Neck: trachea midline, no thyromegaly Respiratory: normal respiratory effort, lungs clear to auscultation Cardiovascular: Rate/Rhythm: regular rate and regular rhythm Musculoskeletal: no cyanosis or clubbing, extremities motor strength 5/5 Skin: There is no erythema. Right retrocalc has 2 openings approximately 1x 1 x 1cm. Neither probe to bone or traffic. Neurologic: Loss of epicritic sensation Psychiatric: Orientation: alert and oriented x 3 Results & Data ([facility]) Vital Signs (Past 12 Hours) Vital Signs Temp Pulse Resp BP Pulse Ox O2 Del Method 04/19/22 07:50 36.4 C L 65 18 109/71 98 Room Air 04/18/22 22:48 36.8 C 79 18 147/76 H 97 Room Air
[2022-04-19] MEDS: INSULIN ASPART PER UNIT SC SCH ×4 (08:46→21:07)
[2022-04-19] MEDS: LANTUS PER UNIT CHARGE SQ SCH ×2 (08:47→21:07)
[2022-04-19] MEDS ORDERED: INSULIN ASPART PER UNIT SC SCH (09:15)
[2022-04-19] MEDS ORDERED: Nursing to Pharmacy Communication SCH ×3 (09:15→20:45)
--- NOTE | 2022-04-19 10:09 | Pharmacy Report ---
Pharmacy PK ABX Note - Date of Service April 19, 2022 - Assessment and Plan Assessment * 56 year old M receiving empiric vancomycin and ertapenem for treatment of nonhealing diabetic calcaneal ulcer. * Pertinent PMH includes history of renal transplant (on immunosuppressant therapy), s/p right calcaneal ostectomy (12/19/21 and 12/21/21) with report of wound opening up, and T2DM. * 1st set of blood cultures with 1 of 2 CoNS. Repeat set also with 1 of 2 CoNS - still likely to be contaminants despite repeat positivity, although true bacteremia cannot be entirely excluded * Deep wound with Group B Strep * WBC wnl, afebrile * Vancomycin may be able to be discontinued and continue with monotherapy targeted at Group B Strep. However, continue for now given small change of bacteremia in context of significant immunocompromise and failed outpatient therapy * Awaiting ID input Vancomycin * Target AUC/IVETTE of 400-600 mg/L.hr * Random level this AM was *not* a trough level, and is associated with an AUC in the upper end of the therapeutic range with a slightly higher risk for nephrotoxicity than other regimens. Also - slight trend up from previous AUC target / level noted * Will very slight reduce vancomycin dose Plan * Vancomycin 1000 mg IV q12 * Random level with AM labs on 04/21 Pharmacy will continue to follow and will adjust dose/frequency as necessary. Thank you. Pharmacy has transitioned to AUC monitoring for vancomycin. AUC/IVETTE is the pr eferred PK/PD target and is associated with decreased risk of nephrotoxicity compared to traditional trough targets.
--- NOTE | 2022-04-19 10:34 | Anesthesiology Consultation ---
Date of Service April 19, 2022 Assessment & Plan Chart Review Chart Review: Acceptable Risk for Surgery and Patient NOT seen in Pre Admission Testing Consults Requested none History Surgery Operation Date: 04/19/22 09:20 Proposed Procedures p Right Foot Removal Hardware - Vince Donaldson DPM, MS s Bone Biopsy - Vince Donaldson DPM, MS Height/Weight Height: 6 ft 3 in Weight: 110.8 kg Allergies Allergy/AdvReac Type Severity Reaction Status Date / Time ondansetron Allergy Intermediate confusion Unverified 04/14/22 22:47 bee venom protein (honey bee) Allergy Unknown SHORTNESS Verified 04/14/22 22:47 OF BREATH Medications Home Medications Medication Instructions Recorded Confirmed Last Taken amitriptyline 25 mg tablet 25 mg PO HS 09/11/19 04/14/22 12/15/21 aspirin 81 mg tablet,delayed 81 mg PO QAM 09/11/19 04/14/22 12/16/21 release (Alejo Low Dose Aspirin) epinephrine 0.3 mg/0.3 mL 0.3 mg subcut UD PRN Anaphylaxis 09/11/19 04/14/22 Unknown injection, auto-injector (EpiPen) insulin glargine 100 unit/mL (3 48 unit subcut BID 09/11/19 04/14/22 12/16/21 mL) subcutaneous pen (Basaglar am KwikPen U-100 Insulin) insulin lispro 100 unit/mL 26 unit subcut AC 09/11/19 04/14/22 12/16/21 subcutaneous pen (Humalog KwikPen x3 (U-100) Insulin) rosuvastatin 20 mg tablet (Crestor) 10 mg PO QAM 09/11/19 04/14/22 12/15/21 tamsulosin 0.4 mg capsule (Flomax) 0.4 mg PO HS 09/11/19 04/14/22 12/15/21 diltiazem HCl 240 mg 240 mg PO QAM 05/29/20 04/14/22 12/16/21 capsule,extended release 24 hr belatacept 250 mg intravenous 250 mg IV MONTHLY ##0 05/30/20 04/14/22 04/09/22 solution pregabalin 150 mg capsule 150 mg PO PM 05/30/20 04/14/22 12/15/21 acetaminophen 325 mg tablet 650 mg PO QID PRN Fever 11/19/21 04/14/22 11/19/21 12:00 (Tylenol) 650 mg sildenafil 25 mg tablet 25 mg PO UD PRN Edema 12/16/21 04/14/22 Unknown lactobacillus combination no.4 3 3,000 mmu cells PO DAILY #80 caps 12/26/21 04/14/22 Unknown billion cell capsule (Probiotic) polyethylene glycol 3350 17 gram 17 g PO DAILY PRN constipation #30 12/26/21 04/14/22 Unknown oral powder packet (Miralax) ea clindamycin HCl 300 mg capsule 300 mg PO QID 04/14/22 04/14/22 Unknown mycophenolate sodium 180 mg 360 mg PO BID 04/14/22 04/14/22 04/14/22 19:00 tablet,delayed release Active Medications Generic Name Dose Route Start Last Admin Trade Name Freq PRN Reason Stop Dose Admin Acetaminophen 1,000 mg 04/16/22 16:45 04/19/22 08:13 Acetaminophen 500 Mg Tab PO 05/16/22 16:44 1,000 mg Q8H JOSE Administration Amitriptyline HCl 25 mg 04/15/22 21:00 04/18/22 20:28 Amitriptyline Hcl 25 Mg Tab PO 05/15/22 20:59 25 mg HS JOSE Administration Aspirin 81 mg 04/15/22 09:00 04/18/22 08:08 Aspirin 81 Mg Ectab PO 05/15/22 08:59 81 mg QAM JOSE Administration Diltiazem HCl 240 mg 04/15/22 09:00 04/19/22 08:13 Diltiazem Hcl 240 Mg Capcr PO 05/15/22 08:59 240 mg QAM JOSE Administration Enoxaparin Sodium 40 mg 04/16/22 21:00 04/18/22 20:28 Enoxaparin Inj 40 Mg/0.4 Ml Syr SQ 05/16/22 20:59 40 mg Q24H JOSE Administration Heparin Sodium (Porcine) 5 ml 04/15/22 02:36 04/19/22 09:46 Heparin 100 Unit/Ml 5ml Flush FLUSH 05/15/22 02:35 5 ml PRN PRN Administration Flush Ertapenem 1,000 mg/ Syringe 10 mls @ 2 mls/min 04/15/22 21:00 04/18/22 20:27 IV 04/22/22 20:59 2 mls/min Q24H JOSE Administration Insulin Glargine 48 units 04/15/22 09:00 04/19/22 08:47 Lantus Per Unit Charge SQ 05/15/22 08:59 48 units BID JOSE Administration Lactobacillus Acidophilus 2 cap 04/15/22 09:00 04/19/22 08:13 Advanced Probiotic 1250 Mg Capsule PO 05/15/22 08:59 2 cap DAILY JOSE Administration Mycophenolate Sodium 360 mg 04/15/22 09:00 04/15/22 20:01 Mycophenolate Sodium 180 Mg Tab PO 05/15/22 08:59 360 mg BID JOSE Administration Pregabalin 150 mg 04/15/22 21:00 04/18/22 20:27 Pregabalin 150 Mg Cap PO 05/15/22 20:59 150 mg PM JOSE Administration Rosuvastatin Calcium 10 mg 04/15/22 09:00 04/19/22 08:13 Rosuvastatin Calcium 10 Mg Tab PO 05/15/22 08:59 10 mg QAM JOSE Administration Tamsulosin HCl 0.4 mg 04/15/22 21:00 04/18/22 20:27 Tamsulosin Hcl 0.4 Mg Cap PO 05/15/22 20:59 0.4 mg HS JOSE Administration Past Medical History Medical History (Updated 04/19/22 @ 08:27 by Vince Donaldson DPM, MS) Chronic osteomyelitis involving ankle and foot Diabetes Fever Gastroparesis History of peritoneal dialysis Hypertension Renal transplant recipient Past Family History Family History Other Family history non-contributory Past Surgical History Surgical History Hx of kidney transplant September 2017 Prema Albarran Status post right foot surgery Social History Smoking Status: Never smoker Do You Dip or Chew Tobacco: No Hx Alcohol Use: Yes Alcohol type: wine alcohol intake frequency: holidays/special occasions only Hx Substance Use: No substance use type: does not use Physical Exam Vital Signs Last Vital Signs Temp 36.4 C L 04/19/22 07:50 Pulse 65 04/19/22 07:50 Resp 18 04/19/22 07:50 BP 109/71 04/19/22 07:50 Pulse Ox 98 04/19/22 07:50 O2 Del Method 04/19/22 07:50 Testing Laboratory Results 04/18/22 06:04 04/18/22 06:04 PT 11.7 Seconds (9.0-12.0) 04/14/22 20:35 INR 1.1 (0.9-1.1) 04/14/22 20:35 APTT 32.5 Seconds (21.0-31.0) H 04/14/22 20:35 Hemoglobin A1c 9.1 % (4.5-5.6) H 04/15/22 05:44 Urine Color Yellow 04/14/22 Unknown Urine Appearance Clear (Clear) 04/14/22 Unknown Urine pH 5.5 (4.5-7.5) 04/14/22 Unknown Ur Specific [place] 1.013 (1.000-1.030) 04/14/22 Unknown Urine Protein Negative (Negative) 04/14/22 Unknown Urine Glucose (UA) 2+ (Negative) H 04/14/22 Unknown Urine Ketones Trace (Negative) H 04/14/22 Unknown Urine Nitrite Negative (Negative) 04/14/22 Unknown Ur Leukocyte Esterase Negative (Negative) 04/14/22 Unknown 04/17/22 07:38 Aerobic Blood Culture - Preliminary Blood Coag neg staph not lugdunensis Anaerobic Blood Culture - Preliminary No growth in Anaerobic bottle after 48 hours. 04/17/22 06:45 Aerobic Blood Culture - Preliminary Blood No growth in Aerobic bottle after 48 hours. Anaerobic Blood Culture - Preliminary No growth in Anaerobic bottle after 48 hours. 04/14/22 20:35 Gram Stain - Final Foot,Right Deep Wound Culture - Final Group B Beta Strep 04/14/22 21:07 Aerobic Blood Culture - Preliminary Blood No growth in Aerobic bottle after 48 hours. Anaerobic Blood Culture - Final 04/14/22 20:35 Aerobic Blood Culture - Preliminary Blood Coag neg staph not lugdunensis Anaerobic Blood Culture - Preliminary Coag neg staph not lugdunensis 04/19/22 08:11 POC Glucose 103 H Electrocardiogram Date: 11/19/21 Findings: + NSR @ and + pertinent finding (bifasicular block) Chest X-Ray Date: 11/19/21 Findings: + NAD Echocardiogram Date: 07/15/22 EF: 65 LV Function: normal Valvular Disease: + MR (severe calcification with mild MR)
--- NOTE | 2022-04-19 11:38 | Hospitalist Progress Note ---
Date of Service April 19, 2022 Assessment & Plan (1) Infected surgical wound: (2) Osteomyelitis: (3) Gram-positive bacteremia: (4) Failure of outpatient treatment: (5) Hx of kidney transplant: (6) Immunocompromised: (7) Diabetes mellitus with hyperglycemia: (8) Hypertension: Plan This is a 56-year-old male with PMH of type 2 diabetes, diabetic retinopathy, history of sleep apnea, chronic CAD s/p stents, hypertension, orthostatic hypotension, history of multiple closed fractures of cervical vertebrae, thoracic spine fracture, peripheral neuropathy, history of syncope and collapse, history of tobacco use disorder, status post kidney transplant, presents with RLE wounds. Non-healing RLE wounds Osteomyelitis of R heel History ofnonhealing diabetic right ankle, heel ulcer Following with Dr. Donaldson of podiatry, previously admitted with osteo of R heel wound s/p 6 weeks of Invanz. Wound re-opened and recently finished a 10 day course of IV Clinda Also with history of Achilles lengthening procedure with open wounds on RLE Wounds did not improve on Clinda and patient was directed to ED for further evaluation VSS, no leukocytosis Foot CT (04/14)- with findings highly suspicious for the presence of osteomyelitis involving the inferior margin of the calcaneus as described. There is also increased soft tissue ulceration along the heel posteriorly. Additionally, there is swelling of the Achilles tendon and pre-Achilles soft tissues with air present characteristic of gas gangrene Bone Scan (04/15) - findings are compatible with cellulitis and osteomyelitis of the hindfoot and midfoot as well as a possible focus in the distal tibia Podiatry consulted. Right heel s/p I&D by Dr. Mar, Iodoform packing and wound care Discussed with Dr. Donaldson - will plan to round on patient Tuesday. Continue IV abx. Will need hardware removal and would benefit from bone biopsy in the future but can be done as an outpatient Blood culture (04/14) preliminary growing coag neg staph. Foot wound culture (04/14) preliminary growing group B strep. Repeating blood cultures 04/17 pending. Echo obtained given gram positive bacteremia - no evidence of thrombus Continue empiric Invanz and vancomycin, history of polymicrobial growth and high risk of requiring amputation. ID consulted - recommendations pending Does have home health set up per CM Immunocompromised state History of renal transplant Discussed with Dr. Snyder and [facility] transplant team. Will hold mycophenolate for now and Transplant team can re-evaluate resuming at clinic appt on 04/28 Receives belatacept injections but not due until 05/07 May need to hold both at this we have to transplant team-patient is aware of this coordination of care DM II A1c 9.1 Per development educator, no insulin adjustment indicated SSI while in-patient BSG AC HS CAD S/p stent. Continue aspirin, statin HTN Continue diltiazem. Improved on scheduled Tylenol. DVT Ppx:SQ lovenox Code status: FULL Dispo: Ad[facility] and [facility]ticipated Discharge Date Admission Date: April 14, 2022 Subjective 56-year-old man admitted for worsening of right foot wound. I&D by podiatry on 04/16. Currently there is a concern for persistent/recurrent osteomyelitis versus postoperative changes. Infection appears present with purulent drainage from wounds on leg. Patient feeling well today Awaiting removal of hardware and ID telehealth consult at bedside-all questions answered We reviewed CTA performed initially on admission Patient denies any new issues Review of Systems Review of Systems: All systems reviewed negative except as indicated above. Physical Exam Physical Exam: CONSTITUTIONAL: WNWD, vitals as above, generally well- appearing, NAD EYES: normal conjunctivae, no scleral icterus ENT: external ear and nose normal, MMM NECK: trachea midline, RESPIRATORY: clear to auscultation bilaterally, no crackles, rales or wheezes, normal respiratory effort CARDIOVASCULAR: regular rate and rhythm, S1 and 2 heard without murmurs, gallops or rubs, no JVD, no peripheral edema CHEST: inspection of chest was normal GASTROINTESTINAL: soft, nontender, ND, no guarding MUSCULOSKELETAL: strength 5/5 throughout, head is normocephalic SKIN: warm and dry right ankle/wound is wrapped from podiatry this morning. Skin was not directly visualized in this area. NEUROLOGIC: CN 2-12 grossly intact, no sensory deficit, normal cognition, normal speech, no tremor PSYCHIATRIC: alert cooperative and oriented to person, place and time. Euthymic mood, makes good eye contact, language grossly intact, recent and remote memory grossly intact. Results & Data Results & Data ([facility]) Vital Signs (Past 12 Hours) Vital Signs Temp Pulse Resp BP Pulse Ox O2 Del Method 04/19/22 07:50 36.4 C L 65 18 109/71 98 Room Air Medications Administered Current Inpatient Medications Acetaminophen (Acetaminophen 500 Mg Tab) 1,000 mg PO Q8H JOSE Stop: 05/16/22 16:44 Last Admin: 04/19/22 08:13 Dose: 1,000 mg Amitriptyline HCl (Amitriptyline Hcl 25 Mg Tab) 25 mg PO HS JOSE Stop: 05/15/22 20:59 Last Admin: 04/18/22 20:28 Dose: 25 mg Aspirin (Aspirin 81 Mg Ectab) 81 mg PO QAM JOSE Stop: 05/15/22 08:59 Last Admin: 04/18/22 08:08 Dose: 81 mg Dextrose (Dextrose 50% 50 Ml Syringe) 25 - 50 ml IV UD PRN; Protocol PRN Reason: Hypoglycemia Protocol Stop: 05/15/22 00:59 Diltiazem HCl (Diltiazem Hcl 240 Mg Capcr) 240 mg PO QAM JOSE Stop: 05/15/22 08:59 Last Admin: 04/19/22 08:13 Dose: 240 mg Enoxaparin Sodium (Enoxaparin Inj 40 Mg/0.4 Ml Syr) 40 mg SQ Q24H JOSE Stop: 05/16/22 20:59 Last Admin: 04/18/22 20:28 Dose: 40 mg Epinephrine HCl (Epinephrine Inj 1 Mg/Ml Amp) 0.3 mg IM ONE PRN PRN Reason: ANAPHYLAXIS Glucagon (Glucagon For Inj 1 Mg Vial) 1 mg IM UD PRN; Protocol PRN Reason: Hypoglycemia Protocol Stop: 05/15/22 00:59 Glucose (Glucose 40% Gel 15 Gm Tube) 15 - 30 gm PO UD PRN; Protocol PRN Reason: Hypoglycemia Protocol Stop: 05/15/22 00:59 Glucose (Glucose 10 Tab/Tube) 4 - 8 tab PO UD PRN; Protocol PRN Reason: Hypoglycemia Protocol Stop: 05/15/22 00:59 Heparin Sodium (Porcine) (Heparin 100 Unit/Ml 5ml Flush) 5 ml FLUSH PRN PRN PRN Reason: Flush Stop: 05/15/22 02:35 Last Admin: 04/19/22 09:46 Dose: 5 ml Ertapenem 1,000 mg/ Syringe 10 mls @ 2 mls/min IV Q24H JOSE Stop: 04/22/22 20:59 Last Admin: 04/18/22 20:27 Dose: 2 mls/min Vancomycin HCl 1,000 mg/ (Sodium Chloride) 270 mls @ 200 mls/hr IV Q12 [facility]; Protocol Stop: 05/31/22 20:59 Insulin Aspart (Insulin Aspart Per Unit) 0 units SC Q6 [facility] Stop: 05/19/22 11:59 Insulin Glargine (Lantus Per Unit Charge) 48 units SQ BID [facility] Stop: 05/15/22 08:59 Last Admin: 04/19/22 08:47 Dose: 48 units Lactobacillus Acidophilus (Advanced Probiotic 1250 Mg Capsule) 2 cap PO DAILY [facility] Stop: 05/15/22 08:59 Last Admin: 04/19/22 08:13 Dose: 2 cap Miscellaneous (Carbohydrates For Hypoglycemia ) 15 - 30 gm PO UD PRN PRN Reason: Hypoglycemia Treatment Stop: 05/15/22 00:59 Miscellaneous Information (Vancomycin Consult Active) 1 each N/A UD PRN PRN Reason: Consult Stop: 05/15/22 00:33 Mycophenolate Sodium (Mycophenolate Sodium 180 Mg Tab) 360 mg PO BID [facility] Stop: 05/15/22 08:59 Last Admin: 04/15/22 20:01 Dose: 360 mg Ondansetron HCl (Ondansetron Inj 2 Mg/Ml 2 Ml Vial) 4 mg IV Q6H PRN PRN Reason: Nausea Stop: 05/15/22 00:33 Polyethylene Glycol (Polyethylene (Miralax) 17 Gm Pack) 17 gm PO DAILY PRN PRN Reason: Constipation Stop: 05/15/22 00:33 Pregabalin (Pregabalin 150 Mg Cap) 150 mg PO PM JOSE Stop: 05/15/22 20:59 Last Admin: 04/18/22 20:27 Dose: 150 mg Rosuvastatin Calcium (Rosuvastatin Calcium 10 Mg Tab) 10 mg PO QAM [facility] Stop: 05/15/22 08:59 Last Admin: 04/19/22 08:13 Dose: 10 mg Tamsulosin HCl (Tamsulosin Hcl 0.4 Mg Cap) 0.4 mg PO HS [facility] Stop: 05/15/22 20:59 Last Admin: 04/18/22 20:27 Dose: 0.4 mg (1) Diabetes mellitus with hyperglycemia Diabetes mellitus mcc insulin use: with mcc use Diabetes mellitus type: type 2 Qualified Code(s): E11.65 - Type 2 diabetes mellitus with hyper glycemia; Z79.4 - exterminator termite (current) use of insulin (2) Hypertension Hypertension type: essential hypertension Qualified Code(s): I10 - Essential (primary) hypertension (3) Osteomyelitis Laterality: right Osteomyelitis location: foot Osteomyelitis type: unspecified type Qualified Code(s): M86.9 - Osteomyelitis, unspecified
[2022-04-19] MEDS ORDERED: LIDOCAINE 2% 2 ML VIAL/AMP(20MG/ML) INFIL ONE (14:53)
[2022-04-19] MEDS ORDERED: PHENYLEPHRINE 100MCG/ML 5ML SYR ONE (14:53)
[2022-04-19] MEDS ORDERED: ePHEDrine sulfate 50 MG/ML SYR ONE (14:53)
[2022-04-19] MEDS ORDERED: PROPOFOL IV EMULSION 10 MG/ML 20 ML VIAL IV ONE (14:53)
[2022-04-19] MEDS ORDERED: fentaNYL citrate 100 MCG/2 ML VIAL ONE (14:54)
[2022-04-19] MEDS ORDERED: MIDAZOLAM HCL 1 MG/ML 2ML VIAL ONE (14:54)
[2022-04-19] MEDS ORDERED: PROMETHAZINE HCL 6.25 MG in SODIUM CHLORIDE 0.9% 50 ML IV PRN (16:36)
[2022-04-19] MEDS ORDERED: fentaNYL citrate 100 MCG/2 ML VIAL IV PRN (16:36)
[2022-04-19] MEDS ORDERED: ATROPINE SULFATE 0.1 MG/ML 10ML SYR IV PRN (16:36)
--- NOTE | 2022-04-19 17:13 | History & Physical Bridge Note ---
Date of Service April 19, 2022 History & Physical Bridge Note I have examined the patient, reviewed the History & Physical and in the interval since the performance of the History & Physical I have noted the following changes of clinical significance: no changes noted
[2022-04-19] MEDS ORDERED: SUGAMMADEX SODIUM 200 MG/2 ML VIAL IV ONE (17:48)
[2022-04-19] MEDS ORDERED: NEOSTIGMINE METHYLSULFATE 1 MG/ML 10ML VIAL ONE (18:21)
[2022-04-19] MEDS ORDERED: GLYCOPYRROLATE 0.2 MG/ML VIAL ONE (18:21)
[2022-04-19] MEDS ORDERED: ROCURONIUM BROMIDE 10 MG/ML 5 ML VIAL IV ONE (18:21)
[2022-04-19] MEDS ORDERED: ceFAZolin 330 MG/ML 1 GM VIAL ONE (18:35)
--- NOTE | 2022-04-19 18:56 | Post Operative Brief Note ---
Immediate Post Op Note v1 Date of Surgery April 19, 2022 Pre & Post Diagnosis Operation Date: 04/19/22 09:20 Pre-Op Diagnosis: Chronic osteomyelitis right foot and ankle Post-Op Diagnosis: Chronic osteomyelitis right foot and ankle I identified the patient and participated in the time-out.: Yes Procedure Operation Date: 04/19/22 09:20 Actual Procedures p Right Foot Removal Hardware(Right) - Vince Donaldson DPM, MS s Bone Biopsy(Right) - Vince Donaldson DPM, MS Surgeon Vince Donaldson DPM, MS Exchange Specialist None Estimated Blood Loss 10 Findings Consistent with Post-Op Diagnosis
--- NOTE | 2022-04-19 19:25 | Anesthesiology Progress Note ---
Date of Service April 19, 2022 Anesthesia Post Procedure Vital Signs Vital Signs: Temp Pulse Pulse Resp BP Pulse Ox O2 Del Method 04/19/22 19:10 69 15 120/55 L 98 Room Air 04/19/22 19:01 36.5 C 65 15 109/58 L 100 Oxymask 04/19/22 16:26 36.7 C 67 18 129/77 96 Room Air 04/19/22 14:53 36.6 C 69 18 116/65 99 Room Air 04/19/22 07:50 36.4 C L 65 18 109/71 98 Room Air 04/18/22 22:48 36.8 C 79 18 147/76 H 97 Room Air O2 Flow Rate 04/19/22 19:10 04/19/22 19:01 4 04/19/22 16:26 04/19/22 14:53 04/19/22 07:50 04/18/22 22:48 Pain Intensity Right Foot: Pain Intensity: 2 Transfer of Care Handoff Completed per policy Notes Mental Status: alert / awake / arousable Patient Amnestic to Procedure: Yes Nausea / Vomiting: adequately controlled Pain: adequately controlled Airway Patency, RR, SpO2: stable & adequate BP & HR: stable & adequate Hydration State: stable & adequate Anesthetic Complications: no major complications apparent
--- NOTE | 2022-04-19 19:47 | Fluoroscopy Report ---
INTRAOPERATIVE RADIOGRAPHS CLINICAL HISTORY: Hardware removal. Fluoroscopy time: 34 seconds. FINDINGS: 2 spot fluoroscopic views of the right heel are correlated with radiographs dated 04/15/2022 . On the initial image a cortical defect is seen within the posterior calcaneus with 2 cortical lag [address] crews in place. On the second image the cortical lag screws transfixing the calcaneus abdomen removed . IMPRESSION: Intraoperative images from calcaneal hardware removal as above. Electronically signed by: Mendoza Sandoval M.D. 04/19/2022 7:46 PM
[2022-04-19] MEDS: AMITRIPTYLINE HCL 25 MG TAB PO SCH (20:54)
[2022-04-19] MEDS: ENOXAPARIN INJ 40 MG/0.4 ML SYR SQ SCH (20:54)
[2022-04-19] MEDS: TAMSULOSIN HCL 0.4 MG CAP PO SCH (20:54)
[2022-04-19] MEDS: ERTAPENEM SODIUM 1,000 MG in SYRINGE 0 ML IV SCH (20:55)
[2022-04-19] MEDS: VANCOMYCIN HCL 1,000 MG in SODIUM CHLORIDE 0.9% 250 ML IV SCH (20:55)
[2022-04-19] MEDS: PREGABALIN 150 MG CAP PO SCH (21:08)
[2022-04-19] MEDS: MYCOPHENOLATE SODIUM 180 MG TAB PO SCH (21:20)
--- NOTE | 2022-04-19 21:47 | Operative Report ---
Post Operative Report Pre & Post Diagnosis Operation Date: 04/19/22 09:20 Pre-Op Diagnosis: Chronic osteomyelitis right foot and ankle Post-Op Diagnosis: Chronic osteomyelitis right foot and ankle I identified the patient and participated in the time-out.: Yes Procedure Operation Date: 04/19/22 09:20 Actual Procedures p Right Foot Removal Hardware(Right) - Vince Donaldson DPM, MS s Bone Biopsy(Right) - Vince Donaldson DPM, MS Surgeon Vince Donaldson DPM, MS Stone Crusher Operator None Estimated Blood Loss 10 Findings Consistent with Post-Op Diagnosis Specimens 1.) Hardware Right Calc Microbiology 2.) Bone Right Calc Microbiology 3.) Bone Right Calc Pathology Description of Procedure History of Present Illness: Patient is a type II diabetic, 56 year old male with history of pathologic calcaneus fracture treated with ORIF and recent signs of Osteomyelitis of Right calcaneus. Patient currently on IV Vanc and Invanz for treatment of osteomyelitis of calcaneus. He presents for explant of fixation and partial excision of calcaneus right foot. Patient is at severe risk for loss of life or limb. All questions answered. All potential risks, benefits, complications, alternatives, rehab, potential for incomplete relief of symptoms, need for further surgery, DVT, PE, , persistent pain, swelling, scarring, weakness, neurovascular, wound complications and potential for amputations were discussed with patient. Unwanted outcomes such as, but not limited to were reviewed including under correction, overcorrection, return of deformity, infection. All questions were answered. Patient has decided to proceed with procedure as indicated. Preoperative diagnosis: 1.) Right calcaneus osteomyelitis 2.) Right heel diabetic ulcer 3.) Retained orthopedic hardware right calcaneus Postoperative diagnosis: Same Name of operation: 1.) Explant of hardware Right calcaneus 2.) Partial excision of calcaneus Right 3.) Delayed Primary Closure Surgeon: Dr. Donaldson Stone Crusher Operator: None Anesthesia: General anesthesia care Estimated blood loss: Minimal Procedure in detail: Under mild sedation the patient was brought in the operating room placed on the operating table in prone position. A Pneumatic calf tourniquet was then placed about the patient's calf. The right lower limb was then prepped, scrubbed, and draped, in the usual aseptic manner. An Esmarch bandage utilized examining the patient's right ankle and the pneumatic calf tourniquet was inflated. Attention was directed to the posterior aspect of the patient's right lower extremity. Utilizing a sharp, sterile, 15 blade, nonviable tissue was excisionally debrided from right retrocalcaneal heel to level of bone. Bone from the retrocalcaneal heel at the base of the level of the DFU was excised with ronguer and placed on the back table in a sterile cup. The specimen was labed right Calcaneus and sent to Micro. Utilizing a sterile k-wire and mini C-arm, Two 4.5 headless compression screws were located. The two screws were explanted with out incident. Bone from the calcaneus was noted to be soft and discolored. Significant portions were removed with osteotome and mallet down to bleeding bone. Bone from right calcaneus was sent to both Pathology and Microbiology. An additional diabetic wound at the proximal previous tendo achilles lengthening was identified. Previous diagnostic imaging showed gas gangrene. The additional wound was expanded with curved hemostat. It appeared not to traffic proximal. The area was flushed with normal saline. At this time instrumentation was switched and top gloves were removed. 1 Liter of lactate ringer was perfused low flow over the incision and explant site as well as the proximal wound. 1 gram of vancomycin power was placed in the wound. The wounds were dressed with Adaptic followed by sterile compressive dressing consisting of 4 x 4's, ABD and Esthela. The pneumatic calf tourniquet was deflated and a prompt hyperemic response was noted to all digits of the right foot. An Jorge wrap was then applied. The Patient tolerated the procedure and anesthesia well. The Patient was transferred to recovery room with vital signs stable and vascular status intact all toes of the right foot. Following a period of Postoperative monitoring the Patient will be readmitted to the floor resuming all preoperative orders. I attest to the content of the Intraoperative Record and any orders documented therein. Any exceptions are noted below.
[2022-04-20] MEDS: ACETAMINOPHEN 500 MG TAB PO SCH ×3 (01:09→17:25)
[2022-04-20 07:55] LABS: Hematocrit (blood only) 34.8 % (40.1-51.0); Mean Corpuscular Hemoglobin 25.9 pg (25.0-34.0); Mean Corpuscular Hgb Conc 31.6 g/dL (32.0-36.0); Mean Corpuscular Volume 81.9 fL (80.0-100.0); Mean Platelet Volume 9.1 fL (9.4-12.4); Platelet Count 304 K/uL (130-400); RDW Coefficient of Variation 16.3 % (11.5-14.5); RDW Standard Deviation 48.6 fL (36.4-46.3); Red Blood Count 4.25 M/uL (4.63-6.08); White Blood Count 7.01 K/ul (4.8-10.8)
[2022-04-20 08:14] LABS: Calcium 9.1 mg/dl (8.5-10.1); Creatinine Clr Calc Pharmacy 105.3 ml/min; Est GFR (African American) 91.9 ml/min; Est GFR (Non-African American) 79.3 ml/min; Potassium 4.1 mmol/L (3.5-5.1)
[2022-04-20] MEDS: ROSUVASTATIN CALCIUM 10 MG TAB PO SCH (09:02)
[2022-04-20] MEDS: dilTIAZem HCL 240 MG CAPCR PO SCH (09:02)
[2022-04-20] MEDS: ADVANCED PROBIOTIC 1250 MG CAPSULE PO SCH (09:02)
[2022-04-20] MEDS: ASPIRIN 81 MG ECTAB PO SCH (09:03)
[2022-04-20] MEDS: MYCOPHENOLATE SODIUM 180 MG TAB PO SCH (09:05)
[2022-04-20] MEDS: INSULIN ASPART PER UNIT SC SCH ×4 (09:08→21:58)
[2022-04-20] MEDS: LANTUS PER UNIT CHARGE SQ SCH ×2 (09:12→21:58)
[2022-04-20] MEDS: VANCOMYCIN HCL 1,000 MG in SODIUM CHLORIDE 0.9% 250 ML IV SCH ×2 (09:17→21:35)
--- NOTE | 2022-04-20 10:36 | Nephrology Progress Note ---
Date of Service April 20, 2022 Assessment & Plan (1) Renal transplant recipient: Plan: continue to hold MMF during admission >> reasonable to plan to hold for at least 2 wks given custodial infection; [facility] renal transplant also aware pt has txplt clinic [facility] appt on 04/28; next belatacept infusion scheduled for 05/07; plan to keep these for now and to hold MMF until 04/28 unless clinical status changes daily bmp continue to avoid nsaids, diuretics, other nephrotoxins will sign off; pls call if concerns (2) Osteomyelitis: Plan: f/u pending bone cx s/p hardware removal 04/19 on vancomycin and ertapenem Admission and Anticipated Discharge Date Admission Date: April 14, 2022 Subjective pt feeling well; hopeful for d/c home but flustered/frustrated by logistics of bid IV abtx and working through this. no sob, no pain over allograft; no sense of incomplete void; no n/v. Review of Systems Review of Systems: All systems reviewed & are unremarkable except as noted in Subjective Physical Exam Constitutional: well developed and well nourished Eyes: EOM intact bilaterally ENMT: Ears: no external ear abnormality Nose: no external nose abnormality Mouth: + dry oral mucous membranes Neck: no nuchal rigidity Respiratory: normal respiratory effort Auscultation: + diminished lung sounds Cardiovascular: RRR, no murmur, no edema Gastrointestinal (Abdomen): Inspection/Auscultation: normal bowel sounds Pe rcussion/Palpation: abdomen soft; abdomen nontender Musculoskeletal: Extremities: strength 5/5 throughout Skin: no rashes, warm and dry L heel wrapped; some crusted ulcers distal L calf Neurologic: lemons; no tremor; Psychiatric: Orientation: oriented x 3 Speech: normal rate/rhythm/volume of speech Results & Data ([facility]) Vital Signs (Past 12 Hours) Vital Signs Temp Pulse Pulse Resp BP Pulse Ox O2 Del Method 04/20/22 07:27 36.5 C 69 16 101/63 100 Room Air 04/20/22 03:03 36.6 C 74 16 101/58 L 96 Room Air 04/19/22 22:55 36.3 C L 81 16 123/68 98 Room Air Laboratory Results 04/20/22 07:39 04/20/22 07:39
[2022-04-20] MEDS: HEPARIN 100 UNIT/ML 5ML FLUSH FLUSH PRN ×2 (12:46→23:05)
--- NOTE | 2022-04-20 21:03 | Hospitalist Progress Note ---
Date of Service April 20, 2022 Assessment & Plan (1) Infected surgical wound: (2) Osteomyelitis: (3) Gram-positive bacteremia: (4) Failure of outpatient treatment: (5) Hx of kidney transplant: (6) Immunocompromised: (7) Diabetes mellitus with hyperglycemia: (8) Hypertension: Plan This is a 56-year-old male with PMH of type 2 diabetes, diabetic retinopathy, history of sleep apnea, chronic CAD s/p stents, hypertension, orthostatic hypotension, history of multiple closed fractures of cervical vertebrae, thoracic spine fracture, peripheral neuropathy, history of syncope and collapse, history of tobacco use disorder, status post kidney transplant, presents with RLE wounds. Non-healing RLE wounds Osteomyelitis of R heel History ofnonhealing diabetic right ankle, heel ulcer Following with Dr. Donaldson of podiatry, previously admitted with osteo of R heel wound s/p 6 weeks of Invanz. Wound re-opened and recently finished a 10 day course of IV Clinda Also with history of Achilles lengthening procedure with open wounds on RLE Wounds did not improve on Clinda and patient was directed to ED for further evaluation VSS, no leukocytosis Foot CT (04/14)- with findings highly suspicious for the presence of osteomyelitis involving the inferior margin of the calcaneus as described. There is also increased soft tissue ulceration along the heel posteriorly. Additionally, there is swelling of the Achilles tendon and pre-Achilles soft tissues with air present characteristic of gas gangrene Bone Scan (04/15) - findings are compatible with cellulitis and osteomyelitis of the hindfoot and midfoot as well as a possible focus in the distal tibia Podiatry consulted. Right heel s/p I&D by Dr. Mar, Iodoform packing and wound care Discussed with Dr. Donaldson (water purifier operator) -performed hardware removal from heel on 04/19 Blood culture (04/14) preliminary growing coag neg staph. Foot wound culture (04/14) preliminary growing group B strep. Repeating blood cultures 04/17 with 1/4 MACHINE PRINTER bottles present. REpeat cultures draw (04/20) Echo obtained given gram positive bacteremia - no evidence of thrombus Continue empiric Invanz and vancomycin, history of polymicrobial growth and high risk of requiring amputation. Appreciate ID recommendations--if blood cultures do not clear, may need to consider NIXON (notably no murmurs or fever are present) and/or additional retained hardware as a source. Immunocompromised state History of renal transplant Discussed with Dr. Snyder and [facility] transplant team. Will hold mycophenolate for now and Transplant team can re-evaluate resuming at clinic appt on 04/28 Receives belatacept injections but not due until 05/07 May need to hold both at this we have to transplant team-patient is aware of this coordination of care DM II A1c 9.1 Per printing film stripper, no insulin adjustment indicated SSI while in-patient BSG AC HS CAD S/p stent. Continue aspirin, statin HTN Continue diltiazem. Improved on scheduled Tylenol. DVT Ppx:SQ lovenox is held given ongoing bleeding in surgical site. Code status: FULL Dispo: Admitted to med/surg DO Deion Avery Hospitalist Admission and Anticipated Discharge Date Admission Date: April 14, 2022 Subjective 56-year-old man admitted for worsening of right foot wound. I&D by podiatry on 04/16. Currently there is a concern for persistent/recurrent osteomyelitis versus postoperative changes. Infection appears present with purulent drainage from wounds on leg. Bone biopsy is pending. MACHINE PRINTER seen in blood on initial culture, Repeat 2 days later revealed 1/4 bottles with persistent MACHINE PRINTER. This was followed by removal of hardware from his right heel on 04/19 in the evening. Repeat blood cultures drawn again today. TTE this admission was clear. Patient feeling well today Somewhat frustrated with the logistics and trying to coordinate outpatient care. No new symptoms There was some excessive bleeding from the incision site today and noted that Lovenox was restarted on transfer from the OR last night. This was again held. Patient has heart stents from many years back. Continued ASA 81mg at this time. Nurse was able to hold pressure to achieve hemostasis while doing the repacking. Review of Systems Review of Systems: All systems reviewed negative except as indicated above. Physical Exam Physical Exam: CONSTITUTIONAL: WNWD, vitals as above, generally well- appearing, NAD EYES: normal conjunctivae, no scleral icterus ENT: external ear and nose normal, MMM NECK: trachea midline, RESPIRATORY: clear to auscultation bilaterally, no crackles, rales or wheezes, normal respiratory effort CARDIOVASCULAR: regular rate and rhythm, S1 and 2 heard without murmurs, gallops or rubs, no JVD, no peripheral edema CHEST: inspection of chest was normal GASTROINTESTINAL: soft, nontender, ND, no guarding MUSCULOSKELETAL: strength 5/5 throughout, head is normocephalic SKIN: warm and dry right ankle/wound was profusely bleeding, surrounding skin was not erythematous. NEUROLOGIC: CN 2-12 grossly intact, no sensory deficit, normal cognition, normal speech, no tremor PSYCHIATRIC: alert cooperative and oriented to person, place and time. Euthymic mood, makes good eye contact, language grossly intact, recent and remote memory grossly intact. Results & Data Results & Data ([facility]) Vital Signs (Past 12 Hours) Vital Signs Temp Pulse Resp BP Pulse Ox O2 Del Method 04/20/22 15:16 36.5 C 76 16 169/75 H 99 Room Air 04/20/22 11:09 36.6 C 74 16 103/66 97 Room Air Laboratory Results Short CBC 04/20/22 Range/Units 07:39 WBC 7.01 (4.8-10.8) K/ul Hgb 11.0 L (14.0-18.0) g/dl Hct 34.8 L (40.1-51.0) % Plt Count 304 (130-400) K/uL BMP 04/20/22 07:39 Sodium 137 Potassium 4.1 Chloride 106 Carbon Dioxide 25 BUN 26 H Creatinine 1.04 Glucose 71 Calcium 9.1 Medications Administered Current Inpatient Medications Acetaminophen (Acetaminophen 500 Mg Tab) 1,000 mg PO Q8H JOSE Stop: 05/16/22 16:44 Last Admin: 04/20/22 17:25 Dose: 1,000 mg Amitriptyline HCl (Amitriptyline Hcl 25 Mg Tab) 25 mg PO HS JOSE Stop: 05/15/22 20:59 Last Admin: 04/19/22 20:54 Dose: 25 mg Aspirin (Aspirin 81 Mg Ectab) 81 mg PO QAM JOSE Stop: 05/15/22 08:59 Last Admin: 04/20/22 09:03 Dose: 81 mg Dextrose (Dextrose 50% 50 Ml Syringe) 25 - 50 ml IV UD PRN; Protocol PRN Reason: Hypoglycemia Protocol Stop: 05/15/22 00:59 Diltiazem HCl (Diltiazem Hcl 240 Mg Capcr) 240 mg PO QAM JOSE Stop: 05/15/22 08:59 Last Admin: 04/20/22 09:02 Dose: 240 mg Epinephrine HCl (Epinephrine Inj 1 Mg/Ml Amp) 0.3 mg IM ONE PRN PRN Reason: ANAPHYLAXIS Glucagon (Glucagon For Inj 1 Mg Vial) 1 mg IM UD PRN; Protocol PRN Reason: Hypoglycemia Protocol Stop: 05/15/22 00:59 Glucose (Glucose 40% Gel 15 Gm Tube) 15 - 30 gm PO UD PRN; Protocol PRN Reason: Hypoglycemia Protocol Stop: 05/15/22 00:59 Glucose (Glucose 10 Tab/Tube) 4 - 8 tab PO UD PRN; Protocol PRN Reason: Hypoglycemia Protocol Stop: 05/15/22 00:59 Heparin Sodium (Porcine) (Heparin 100 Unit/Ml 5ml Flush) 5 ml FLUSH PRN PRN PRN Reason: Flush Stop: 05/15/22 02:35 Last Admin: 04/20/22 12:46 Dose: 5 ml Ertapenem 1,000 mg/ Syringe 10 mls @ 2 mls/min IV Q24H JOSE Stop: 04/22/22 20:59 Last Admin: 04/19/22 20:55 Dose: 2 mls/min Vancomycin HCl 1,000 mg/ (Sodium Chloride) 270 mls @ 200 mls/hr IV Q12 JOSE; Protocol Stop: 05/31/22 20:59 Last Infusion: 04/20/22 10:58 Dose: Infused Insulin Aspart (Insulin Aspart Per Unit) 0 units SC ACHS JOSE Stop: 05/19/22 11:59 Last Admin: 04/20/22 19:31 Dose: 13 units Insulin Glargine (Lantus Per Unit Charge) 48 units SQ BID JOSE Stop: 05/15/22 08:59 Last Admin: 04/20/22 09:12 Dose: 48 units Lactobacillus Acidophilus (Advanced Probiotic 1250 Mg Capsule) 2 cap PO DAILY JOSE Stop: 05/15/22 08:59 Last Admin: 04/20/22 09:02 Dose: 2 cap Miscellaneous (Carbohydrates For Hypoglycemia ) 15 - 30 gm PO UD PRN PRN Reason: Hypoglycemia Treatment Stop: 05/15/22 00:59 Last Admin: 04/20/22 08:02 Dose: 15 gm Miscellaneous Information (Vancomycin Consult Active) 1 each N/A UD PRN PRN Reason: Consult Stop: 05/15/22 00:33 Mycophenolate Sodium (Mycophenolate Sodium 180 Mg Tab) 360 mg PO BID JOSE Stop: 05/15/22 08:59 Last Admin: 04/20/22 09:05 Dose: Not Given Ondansetron HCl (Ondansetron Inj 2 Mg/Ml 2 Ml Vial) 4 mg IV Q6H PRN PRN Reason: Nausea Stop: 05/15/22 00:33 Polyethylene Glycol (Polyethylene (Miralax) 17 Gm Pack) 17 gm PO DAILY PRN PRN Reason: Constipation Stop: 05/15/22 00:33 Pregabalin (Pregabalin 150 Mg Cap) 150 mg PO PM JOSE Stop: 05/15/22 20:59 Last Admin: 04/19/22 21:08 Dose: 150 mg Rosuvastatin Calcium (Rosuvastatin Calcium 10 Mg Tab) 10 mg PO QAM JOSE Stop: 05/15/22 08:59 Last Admin: 04/20/22 09:02 Dose: 10 mg Tamsulosin HCl (Tamsulosin Hcl 0.4 Mg Cap) 0.4 mg PO HS JOSE Stop: 05/15/22 20:59 Last Admin: 04/19/22 20:54 Dose: 0.4 mg (1) Osteomyelitis Laterality: right Osteomyelitis location: foot Osteomyelitis type: unspecified type Qualified Code(s): M86.9 - Osteomyelitis, unspecified (2) Diabetes mellitus with hyperglycemia Diabetes mellitus correction insulin use: with intermediate designer use Diabetes mellitus type: type 2 Qualified Code(s): E11.65 - Type 2 diabetes mellitus with hyperglycemia; Z79.4 - MCFP (current) use of insulin (3) Hypertension Hypertension type: essential hypertension Qualified Code(s): I10 - Essential (primary) hypertension
[2022-04-20] MEDS: AMITRIPTYLINE HCL 25 MG TAB PO SCH (21:35)
[2022-04-20] MEDS: TAMSULOSIN HCL 0.4 MG CAP PO SCH (21:35)
[2022-04-20] MEDS: PREGABALIN 150 MG CAP PO SCH (21:35)
[2022-04-20] MEDS: ERTAPENEM SODIUM 1,000 MG in SYRINGE 0 ML IV SCH (21:35)
[2022-04-21] MEDS: ACETAMINOPHEN 500 MG TAB PO SCH ×2 (00:04→08:15)
[2022-04-21] MEDS: dilTIAZem HCL 240 MG CAPCR PO SCH (08:15)
[2022-04-21] MEDS: ADVANCED PROBIOTIC 1250 MG CAPSULE PO SCH (08:15)
[2022-04-21] MEDS: ASPIRIN 81 MG ECTAB PO SCH (08:15)
[2022-04-21] MEDS: ROSUVASTATIN CALCIUM 10 MG TAB PO SCH (08:16)
[2022-04-21] MEDS ORDERED: VANCOMYCIN LEVEL ONE (08:30)
[2022-04-21] MEDS: VANCOMYCIN HCL 1,000 MG in SODIUM CHLORIDE 0.9% 250 ML IV SCH (08:31)
[2022-04-21] MEDS: LANTUS PER UNIT CHARGE SQ SCH (08:32)
[2022-04-21] MEDS: INSULIN ASPART PER UNIT SC SCH ×2 (08:32→12:48)
[2022-04-21 09:43] LABS: Hematocrit (blood only) 30.9 % (40.1-51.0); Hemoglobin 9.7 g/dl (14.0-18.0); Mean Corpuscular Hemoglobin 25.7 pg (25.0-34.0); Mean Corpuscular Hgb Conc 31.4 g/dL (32.0-36.0); Mean Corpuscular Volume 81.7 fL (80.0-100.0); Mean Platelet Volume 9.2 fL (9.4-12.4); Platelet Count 288 K/uL (130-400); RDW Coefficient of Variation 16.2 % (11.5-14.5); RDW Standard Deviation 48.3 fL (36.4-46.3); Red Blood Count 3.78 M/uL (4.63-6.08); White Blood Count 5.68 K/ul (4.8-10.8)
[2022-04-21 10:06] LABS: BUN Creatinine Ratio 20.8 (10-20); Creatinine Clr Calc Pharmacy 103.3 ml/min; Est GFR (African American) 89.9 ml/min; Est GFR (Non-African American) 77.5 ml/min; Potassium 4.2 mmol/L (3.5-5.1)
--- NOTE | 2022-04-21 13:49 | Pharmacy Report ---
Pharmacy PK ABX Note - Date of Service April 21, 2022 - Assessment and Plan Assessment 04/21 * Random level this morning drawn ~ time of trough and is slightly elevated although vanco was infused briefly (~8 minutes) prior to level being drawn ~ 40 minutes later, therefore uncertain of interpretation. [facility] is still predicting target AUC/IVETTE with this dose. * SCr seems to be stable although increasing slightly. 04/19 * 56 year old M receiving empiric vancomycin and ertapenem for treatment of nonhealing diabetic calcaneal ulcer. * Pertinent PMH includes history of renal transplant (on immunosuppressant therapy), s/p right calcaneal ostectomy (12/19/21 and 12/21/21) with report of wound opening up, and T2DM. * 1st set of blood cultures with 1 of 2 CoNS. Repeat set also with 1 of 2 CoNS - still likely to be contaminants despite repeat positivity, although true bacteremia cannot be entirely excluded * Deep wound with Group B Strep * WBC wnl, afebrile * Vancomycin may be able to be discontinued and continue with monotherapy targeted at Group B Strep. However, continue for now given small change of bacteremia in context of significant immunocompromise and failed outpatient therapy * Awaiting ID input Vancomycin * Target AUC/IVETTE of 400-600 mg/L.hr * Random level this AM was *not* a trough level, and is associated with an AUC in the upper end of the therapeutic range with a slightly higher risk for nephrotoxicity than other regimens. Also - slight trend up from previous AUC target / level noted * Will very slight reduce vancomycin dose Plan * Vancomycin 1000 mg IV q12; will continue same for now and get random level in AM to reassess * Random level with AM labs on 04/22 Pharmacy will continue to follow and will adjust dose/frequency as necessary. Thank you. Pharmacy has transitioned to AUC monitoring for vancomycin. AUC/IVETTE is the preferred PK/PD target and is associated with decreased risk of nephrotoxicity compared to traditional trough targets.
--- NOTE | 2022-04-21 14:00 | Hospitalist Progress Note ---
Date of Service April 21, 2022 Assessment & Plan (1) Infected surgical wound: (2) Osteomyelitis: (3) Gram-positive bacteremia: (4) Failure of outpatient treatment: (5) Hx of kidney transplant: (6) Immunocompromised: (7) Diabetes mellitus with hyperglycemia: (8) Hypertension: Plan This is a 56-year-old male with PMH of type 2 diabetes, diabetic retinopathy, history of sleep apnea, chronic CAD s/p stents, hypertension, orthostatic hypotension, history of multiple closed fractures of cervical vertebrae, thoracic spine fracture, peripheral neuropathy, history of syncope and collapse, history of tobacco use disorder, status post kidney transplant, presents with RLE wounds. Non-healing RLE wounds Osteomyelitis of R heel History ofnonhealing diabetic right ankle, heel ulcer Following with Dr. Donaldson of podiatry, previously admitted with osteo of R heel wound s/p 6 weeks of Invanz. Wound re-opened and recently finished a 10 day course of IV Clinda Also with history of Achilles lengthening procedure with open wounds on RLE Wounds did not improve on Clinda and patient was directed to ED for further evaluation VSS, no leukocytosis Foot CT (04/14)- with findings highly suspicious for the presence of osteomyelitis involving the inferior margin of the calcaneus as described. There is also increased soft tissue ulceration along the heel posteriorly. Additionally, there is swelling of the Achilles tendon and pre-Achilles soft tissues with air present characteristic of gas gangrene Bone Scan (04/15) - findings are compatible with cellulitis and osteomyelitis of the hindfoot and midfoot as well as a possible focus in the distal tibia Podiatry consulted. Right heel s/p I&D by Dr. Mar, Iodoform packing and wound care Discussed with Dr. Donaldson (board certified family physician) -performed hardware removal from heel on 04/19 Blood culture (04/14) preliminary growing coag neg staph. Foot wound culture (04/14) preliminary growing group B strep. Repeating blood cultures 04/17 with 1/4 HAT CONDITIONER bottles present. Echo obtained given gram positive bacteremia - no evidence of thrombus Continue empiric Invanz and vancomycin, history of polymicrobial growth and high risk of requiring amputation. Appreciate ID recommendations--if blood cultures do not clear, may need to consider NIXON (notably no murmurs or fever are present) and/or additional retained hardware as a source. - Repeat cultures drawn (04/20) - NGTD in 24 hours - plan to discharge home 04/21/2022 with follow up of PCP, laser machine operator 04/28/2022, board certified family physician and infectious diseases - scripts are submitted to and home infusion being set up Immunocompromised state History of renal transplant Discussed with Dr. Snyder and [facility]. Will hold mycophenolate for now and Transplant team can re-evaluate resuming at clinic appt on 04/28 Receives belatacept injections but not due until 05/07 Holding both until follow up with laser machine operator on 04/28/2022 DM II A1c 9.1 Per tobacco prevention health educator, no insulin adjustment indicated SSI while in-patient BSG AC HS CAD S/p stent. Continue aspirin, statin HTN Continue diltiazem. Improved on scheduled Tylenol. DVT Ppx:SQ lovenox Code status: FULL Dispo: Admitted to med/surg Raul Griffin MD [facility] Medicine Admission and Anticipated Discharge Date Admission Date: April 14, 2022 Subjective 56-year-old man admitted for worsening of right foot wound. I&D by podiatry on 04/16. Currently there is a concern for persistent/recurrent osteomyelitis versus postoperative changes. Infection appears present with purulent drainage from wounds on leg. Bone biopsy is pending. HAT CONDITIONER seen in blood on initial culture, Repeat 2 days later revealed 1/4 bottles with persistent HAT CONDITIONER. This was followed by removal of hardware from his right heel on 04/19 in the evening. Repeat blood cultures drawn again today. TTE this admission was clear. Repeat blood cultures drawn 04/20/2022 with NGTD in 24 hours. Patient feeling well today Somewhat frustrated with the logistics and trying to coordinate outpatient care. No new symptoms, would like to go home today with the understanding that if his blood cultures come back positive, he will have to return to the hospital for further evaluation. Review of Systems Review of Systems: All systems reviewed & are unremarkable except as noted in Subjective Physical Exam Constitutional: well developed, well nourished and + well hydrated; no acute distress, not ill appearing and not overweight Eyes: + anicteric sclerae, PERRL and EOM intact bilaterally; no conjunctival abnormality ENMT: Ears: no external ear abnormality Nose: no sinus tenderness and no epistaxis Mouth: no oropharynx abnormality, no oral mucosal abnormality, oral mucous membranes not dry and no dentition abnormality Throat: no tonsil abnormality Neck: trachea midline; no tracheal deviation and no nuchal rigidity Thyroid: normal thyroid; no thyromegaly and thyroid nontender Respiratory: normal respiratory effort; no respiratory distress, no labored breathing, does not use accessory muscles, not tachypneic and no audible wheezes Auscultation: lungs clear to auscultation bilaterally; no crackles, no rales, no rhonchi and no wheezes Cardiovascular: Rate/Rhythm: regular rate and regular rhythm Heart Sounds: normal S1 and normal S2; no gallop, no murmur and no cardiac rub Vessels: normal peripheral pulses; no JVD Extremities: normal capillary refill; no edema Gastrointestinal (Abdomen): Inspection/Auscultation: normal bowel sounds; abdomen not distended Percussion/Palpation: abdomen soft; abdomen nontender, no guarding, abdomen not rigid and no hepatosplenomegaly Musculoskeletal: Head/Neck/Chest: normocephalic, head atraumatic and neck supple Spine: normal cervical ROM and no cervical spinal tenderness Extremities: strength 5/5 throughout and + foot abnormality (with bandage wrapping) Right; full ROM of extremities and no clubbing Skin: normal turgor; no rashes, no lesions, no ulcers, no induration, no jaundice, no dry skin and no erythema Neurologic: moves all extremities and awake; no focal motor deficits Speech / Cognition: normal speech Motor/Sensory: no tremor, no fasciculations and no sensory deficit Cranial Nerves: PERRL, EOM intact bilaterally and tongue midline Psychiatric: Orientation: alert, oriented x 3 and cooperative Speech: normal rate/rhythm/volume of speech Affect: euthymic affect Lymphatic: no lymphadenopathy and no lymphedema Results & Data Results & Data ([facility]) Vital Signs (Past 12 Hours) Vital Signs Temp Pulse Resp BP Pulse Ox O2 Del Method 04/21/22 07:38 36.6 C 65 16 119/71 95 Room Air Laboratory Results Short CBC 04/21/22 Range/Units 09:21 WBC 5.68 (4.8-10.8) K/ul Hgb 9.7 L (14.0-18.0) g/dl Hct 30.9 L (40.1-51.0) % Plt Count 288 (130-400) K/uL [facility] 04/21/22 09:21 Sodium 138 Potassium 4.2 Chloride 108 H Carbon Dioxide 26 BUN 22 Creatinine 1.06 Glucose 176 H Calcium 9.0 Medications Administered Current Inpatient Medications Acetaminophen (Acetaminophen 500 Mg Tab) 1,000 mg PO Q8H [facility] Stop: 05/16/22 16:44 Last Admin: 04/21/22 08:15 Dose: 1,000 mg Amitriptyline HCl (Amitriptyline Hcl 25 Mg Tab) 25 mg PO HS [facility] Stop: 05/15/22 20:59 Last Admin: 04/20/22 21:35 Dose: 25 mg Aspirin (Aspirin 81 Mg Ectab) 81 mg PO QAM [facility] Stop: 05/15/22 08:59 Last Admin: 04/21/22 08:15 Dose: 81 mg Dextrose (Dextrose 50% 50 Ml Syringe) 25 - 50 ml IV UD PRN; Protocol PRN Reason: Hypoglycemia Protocol Stop: 05/15/22 00:59 Diltiazem HCl (Diltiazem Hcl 240 Mg Capcr) 240 mg PO QAM [facility] Stop: 05/15/22 08:59 Last Admin: 04/21/22 08:15 Dose: 240 mg Epinephrine HCl (Epinephrine Inj 1 Mg/Ml Amp) 0.3 mg IM ONE PRN PRN Reason: ANAPHYLAXIS Glucagon (Glucagon For Inj 1 Mg Vial) 1 mg IM UD PRN; Protocol PRN Reason: Hypoglycemia Protocol Stop: 05/15/22 00:59 Glucose (Glucose 40% Gel 15 Gm Tube) 15 - 30 gm PO UD PRN; Protocol PRN Reason: Hypoglycemia Protocol Stop: 05/15/22 00:59 Glucose (Glucose 10 Tab/Tube) 4 - 8 tab PO UD PRN; Protocol PRN Reason: Hypoglycemia Protocol Stop: 05/15/22 00:59 Heparin Sodium (Porcine) (Heparin 100 Unit/Ml 5ml Flush) 5 ml FLUSH PRN PRN PRN Reason: Flush Stop: 05/15/22 02:35 Last Admin: 04/20/22 23:05 Dose: 5 ml Ertapenem 1,000 mg/ Syringe 10 mls @ 2 mls/min IV Q24H [facility] Stop: 04/22/22 20:59 Last Admin: 04/20/22 21:35 Dose: 2 mls/min Vancomycin HCl 1,000 mg/ (Sodium Chloride) 270 mls @ 200 mls/hr IV Q12 [facility]; Protocol Stop: 05/31/22 20:59 Last Infusion: 04/21/22 10:51 Dose: Infused Insulin Aspart (Insulin Aspart Per Unit) 0 units SC ACHS [facility] Stop: 05/19/22 11:59 Last Admin: 04/21/22 12:48 Dose: 6 units Insulin Glargine (Lantus Per Unit Charge) 48 units SQ BID [facility] Stop: 05/15/22 08:59 Last Admin: 04/21/22 08:32 Dose: 48 units Lactobacillus Acidophilus (Advanced Probiotic 1250 Mg Capsule) 2 cap PO DAILY [facility] Stop: 05/15/22 08:59 Last Admin: 04/21/22 08:15 Dose: 2 cap Miscellaneous (Carbohydrates For Hypoglycemia ) 15 - 30 gm PO UD PRN PRN Reason: Hypoglycemia Treatment Stop: 05/15/22 00:59 Last Admin: 04/20/22 08:02 Dose: 15 gm Miscellaneous Information (Vancomycin Consult Active) 1 each N/A UD PRN PRN Reason: Consult Stop: 05/15/22 00:33 Mycophenolate Sodium (Mycophenolate Sodium 180 Mg Tab) 360 mg PO BID [facility] Stop: 05/15/22 08:59 Last Admin: 04/20/22 09:05 Dose: Not Given Ondansetron HCl (Ondansetron Inj 2 Mg/Ml 2 Ml Vial) 4 mg IV Q6H PRN PRN Reason: Nausea Stop: 05/15/22 00:33 Polyethylene Glycol (Polyethylene (Miralax) 17 Gm Pack) 17 gm PO DAILY PRN PRN Reason: Constipation Stop: 05/15/22 00:33 Pregabalin (Pregabalin 150 Mg Cap) 150 mg PO PM [facility]SE Stop: 05/15/22 20:59 Last Admin: 04/20/22 21:35 Dose: 150 mg Rosuvastatin Calcium (Rosuvastatin Calcium 10 Mg Tab) 10 mg PO QAM [facility] Stop: 05/15/22 08:59 Last Admin: 04/21/22 08:16 Dose: 10 mg Tamsulosin HCl (Tamsulosin Hcl 0.4 Mg Cap) 0.4 mg PO HS [facility] Stop: 05/15/22 20:59 Last Admin: 04/20/22 21:35 Dose: 0.4 mg (1) Osteomyelitis Laterality: right Osteomyelitis location: foot Osteomyelitis type: unspecified type Qualified Code(s): M86.9 - Osteomyelitis, unspecified (2) Diabetes mellitus with hyperglycemia Diabetes mellitus terminal gauger insulin use: with skilled nursing use Diabetes mellitus type: type 2 Qualified Code(s): E11.65 - Type 2 diabetes mellitus with hyperglycemia; Z79.4 - MCFP (current) use of insulin (3) Hypertension Hypertension type: essential hypertension Qualified Code(s): I10 - Essential (primary) hypertension
--- NOTE | 2022-04-21 18:22 | Discharge Summary ---
Date of Service April 21, 2022 Admission HPI Per Admitting Provider This is a 56-year-old male with past medical history significant for type 2 diabetes, diabetic retinopathy, history of sleep apnea, chronic CAD s/p stents, hypertension, orthostatic hypotension, history of multiple closed fractures of cervical vertebrae, thoracic spine fracture, peripheral neuropathy, history of syncope and collapse, history of tobacco use disorder, status post kidney transplant, presents with right heel ulcer. The patient was admitted in December of 2021 with nonhealing diabetic foot ulcer of the right ankle, osteomyelitis of right calcaneus. He was treated with antibiotics prior to that. MRI showed osteomyelitis, status post right calcaneal ostectomy by podiatry and wound closure. At that time, cultures grew E. coli and group B strep. He was initially treated with daptomycin and Zosyn, but later changed to Invanz for 6 weeks. The patient says since the last 3 weeks again the wound opened up, and is following with Podiatry and he finished a 10-day course of clindamycin, but it was not getting better, so he was advised to come to the hospital. He is not ambulating since December, he is using scooter. Denies any fever or chills. No chest pain, no shortness of breath, no nausea, no vomiting, no abdominal pain. Normal bowel and bladder movements. Appetite is okay. No headache, no blurred visions, no earache, no runny nose, no sore throat, no cough. Currently, resting comfortably and hemodynamically stable. Would cultures are drawn in the ER. Admission Exam Per Admitting Provider GENERAL: The patient is obese, not in acute distress. VITAL SIGNS: Temperature 37.1, pulse 71, respirations 16, blood pressure 120/60, oxygen 98% on room air. HEENT: Pupils equal, round and reactive to light. Oral mucosa moist. NECK: No JVD. No neck masses. CARDIOVASCULAR: S1 and S2 heard. Regular rate and rhythm. No murmur, no gallop. RESPIRATORY SYSTEM: Normal AP diameter. No accessory muscle use. No wheezing, no crackles. ABDOMEN: Soft, bowel sounds present, nontender, no distention. CENTRAL NERVOUS SYSTEM: Cranial nerves II-XII grossly intact, nonfocal. EXTREMITIES: Right heel on the posterior aspect two open wounds seen. Mild erythematous changes. Principal Diagnosis R foot osteomyelitis with bacteremia Discharge Exam Constitutional well developed, well nourished and + well hydrated; no acute distress, not ill appearing and not overweight Eyes + anicteric sclerae, PERRL and EOM intact bilaterally; no conjunctival abnormality ENMT Ears: no external ear abnormality Nose: no sinus tenderness and no epistaxis Mouth: no oropharynx abnormality, no oral mucosal abnormality, oral mucous membranes not dry and no dentition abnormality Throat: no tonsil abnormality Neck trachea midline; no tracheal deviation and no nuchal rigidity Thyroid: normal thyroid; no thyromegaly and thyroid nontender Respiratory normal respiratory effort; no respiratory distress, no labored breathing, does not use accessory muscles, not tachypneic and no audible wheezes Auscultation: lungs clear to auscultation bilaterally; no crackles, no rales, no rhonchi and no wheezes Cardiovascular Rate/Rhythm: regular rate and regular rhythm Heart Sounds: normal S1 and normal S2; no gallop, no murmur and no cardiac rub Vessels: normal peripheral pulses; no JVD Extremities: normal capillary refill; no edema Gastrointestinal (Abdomen) Inspection/Auscultation: normal bowel sounds; abdomen not distended Percussion/Palpation: abdomen soft; abdomen nontender, no guarding, abdomen not rigid and no hepatosplenomegaly Musculoskeletal Head/Neck/Chest: normocephalic, head atraumatic and neck supple Spine: normal cervical ROM and no cervical spinal tenderness Extremities: strength 5/5 throughout and + foot abnormality (with bandage wrapping); full ROM of extremities and no clubbing Skin normal turgor; no rashes, no lesions, no ulcers, no induration, no jaundice, no dry skin and no erythema Neurologic moves all extremities and awake; no focal motor deficits Speech / Cognition: normal speech Motor/Sensory: no tremor, no fasciculations and no sensory deficit Cranial Nerves: PERRL, EOM intact bilaterally and tongue midline Psychiatric Orientation: alert, oriented x 3 and cooperative Speech: normal rate/rhythm/volume of speech Affect: euthymic affect Lymphatic no lymphadenopathy and no lymphedema Discharge Data Allergies Allergy/AdvReac Type Severity Reaction Status Date / Time ondansetron Allergy Intermediate confusion Unverified 04/14/22 22:47 bee venom protein (honey bee) Allergy Unknown SHORTNESS Verified 04/14/22 22:47 OF BREATH Consultations 04/14/22 21:46 ED Decision to Admit Stat 04/15/22 08:00 Consult Podiatry Routine 04/15/22 15:32 Consult Infectious Diseases Routine 04/15/22 19:55 Consult Nephrology Routine Procedures Performed Operation Date: 04/19/22 09:20 Actual Procedures p Right Foot Removal Hardware(Right) - Vince Donaldson DPM, MS s Bone Biopsy(Right) - Vince Donaldson DPM, MS Ordered Studies 04/14/22 20:28 CT foot RT wo con Stat 04/19/22 16:18 FL foot RT 2V Routine Hospital Course (1) Infected surgical wound: (2) Osteomyelitis: (3) Gram-positive bacteremia: (4) Failure of outpatient treatment: (5) Hx of kidney transplant: (6) Immunocompromised: (7) Diabetes mellitus with hyperglycemia: (8) Hypertension: Plan This is a 56-year-old male with PMH of type 2 diabetes, diabetic retinopathy, history of sleep apnea, chronic CAD s/p stents, hypertension, orthostatic hypotension, history of multiple closed fractures of cervical vertebrae, thoracic spine fracture, peripheral neuropathy, history of syncope and collapse, history of tobacco use disorder, status post kidney transplant, presents with RLE wounds. Non-healing RLE wounds Osteomyelitis of R heel History ofnonhealing diabetic right ankle, heel ulcer Following with Dr. Donaldson of podiatry, previously admitted with osteo of R heel wound s/p 6 weeks of Invanz. Wound re-opened and recently finished a 10 day course of IV Clinda Also with history of Achilles lengthening procedure with open wounds on RLE Wounds did not improve on Clinda and patient was directed to ED for further evaluation VSS, no leukocytosis Foot CT (04/14)- with findings highly suspicious for the presence of osteomyelitis involving the inferior margin of the calcaneus as described. There is also increased soft tissue ulceration along the heel posteriorly. Additionally, there is swelling of the Achilles tendon and pre-Achilles soft tissues with air present characteristic of gas gangrene Bone Scan (04/15) - findings are compatible with cellulitis and osteomyelitis of the hindfoot and midfoot as well as a possible focus in the distal tibia Podiatry consulted. Right heel s/p I&D by Dr. Mar, Iodoform packing and wound care Discussed with Dr. Donaldson (chief program officer) -performed hardware removal from heel on 04/19 Blood culture (04/14) preliminary growing coag neg staph. Foot wound culture (04/14) preliminary growing group B strep. Repeating blood cultures 04/17 with 1/4 GLORY HOLE TENDER bottles present. Echo obtained given gram positive bacteremia - no evidence of thrombus Continue empiric Invanz and vancomycin, history of polymicrobial growth and high risk of requiring amputation. Appreciate ID recommendations--if blood cultures do not clear, may need to consider NIXON (notably no murmurs or fever are present) and/or additional retained hardware as a source. - Repeat cultures drawn (04/20) - NGTD in 24 hours - plan to discharge home 04/21/2022 with follow up of PCP, drum tester 04/28/2022, chief program officer and infectious diseases - scripts are submitted to and home infusion being set up Immunocompromised state History of renal transplant Discussed with Dr. Snyder and [facility] [place]. Will hold mycophenolate for now and Transplant team can re-evaluate resuming at clinic appt on 04/28 Receives belatacept injections but not due until 05/07 Holding both until follow up with drum tester on 04/28/2022 DM II A1c 9.1 Per senior health educator, no insulin adjustment indicated SSI while in-patient BSG AC HS CAD S/p stent. Continue aspirin, statin HTN Continue diltiazem. Improved on scheduled Tylenol. DVT Ppx:SQ lovenox Code status: FULL Dispo: Admitted to med/surg Raul Griffin MD [facility] Medicine Total Time Total Time Spent Total Time Spent (In Minutes): 45 minutes Total Time Includes: Examination of the Patient, Discharge Planning, Medication Reconciliation and Communication With Other Providers Discharge Plan Discharge Items Patient Disposition: Home - Home Health Services Reason For Visit: INFECTION Discharge Diagnosis: right foot osteomyelitis Condition on Discharge: Fair Activity: As commented below Activity Comment: activity as tolerated, with limited weight bearing on right heel Bathing: Keep incision dry Non-emergency contact: Primary Care Provider, Surgeon and Wood Grainer Call non-emergency contact if: you have any medication questions, your symptoms worsen, you have a fever and your wound pain has increased Follow-up/Referrals: Tanya Snyder MD, PhD [Physician] - Vikram Gee MD [Physician] - Vince Donaldson DPM, MS [Physician] - 04/30/22 3:30 pm (Patient has an appointment at [facility] in [place] with Transplant Team on 04/28/22 at 1400. They will address any issues.) Tanner Zhao DO [Primary Care Provider] - Diet: Carb Consistent or DM2 Addtl Attending Provider Instructions: You were admitted for infection of the bone in the right food and received IV antibiotics and had surgery to remove some screws in the infected bone. blood cultures grew a bacteria and repeat blood cultures from 04/20/2022 have been negative so far. You will continue to received IV antibiotics at home and should follow up with your primary care doctor, drum tester (04/28/2022), infectious diseases doctor, and chief program officer. You should STOP TAKING MYCOPHENOLATE UNTIL YOU SEE YOUR ENTERPRISE ENGINEER ON 04/28/2022. Pending Studies at Discharge: Yes Studies:: final blood culture results and wound culture results Stand-Alone Forms: My [facility] Follicum, Smoking Cessation Medications and DC Order Prescriptions: Continued aspirin [Alejo Low Dose Aspirin] 81 mg Tablet,Delayed Release (Dr/Ec) 81 mg PO QAM amitriptyline 25 mg tablet 25 mg PO HS tamsulosin [Flomax] 0.4 mg capsule 0.4 mg PO HS epinephrine [EpiPen] 0.3 mg/0.3 mL auto-injector 0.3 mg subcut UD PRN (Reason: Anaphylaxis) rosuvastatin [Crestor] 20 mg tablet 10 mg PO QAM insulin glargine [Basaglar KwikPen U-100 Insulin] 100 unit/mL (3 mL) insulin pen 48 unit SUBCUT BID insulin lispro [Humalog KwikPen Insulin] 100 unit/mL insulin pen 26 unit SUBCUT AC MDD 100 units per day Rx Instructions: may increase as needed up to 120 units per day diltiazem HCl 240 mg capsule,extended release 24hr 240 mg PO QAM pregabalin 150 mg capsule 150 mg PO PM belatacept 250 mg Recon Soln 250 mg IV MONTHLY Qty: 0 Rx Instructions: give 5mg/kg IV Once Per Month sildenafil 25 mg tablet 25 mg PO UD PRN (Reason: Edema) polyethylene glycol 3350 [Miralax] 17 gram Powder In Packet 17 g PO DAILY PRN (Reason: constipation) Qty: 30 0RF Probiotic 3 billion cell capsule 3,000 mmu cells PO DAILY Qty: 80 0RF Rx Instructions: administer with a meal, 2 caps daily. mycophenolate sodium 180 mg tablet,delayed release (DR/EC) 360 mg PO BID Qty: 120 0RF Rx Instructions: PLEASE HOLD THIS MEDICATION UNTIL YOU SEE YOUR ENTERPRISE ENGINEER ON 04/28/2022. acetaminophen [Tylenol] 325 mg Tablet 650 mg PO QID PRN (Reason: Fever) Discontinued clindamycin HCl 300 mg capsule 300 mg PO QID Rx Instructions: BEGIN 04/10/22 X 7 DAYS Discharge Orders: Discharge Order (Routine); Ordered 04/21/22 Ordered By: Raul Griffin Admission Data Admit Date/Time: 04/14/22 23:15 Attending Provider: Raul Griffin Admit Provider: Sloan Figueroa Primary Care Provider: Tanner Zhao Other Providers: Abby Clark ; Rikki Poole [facility] ; Sloan Figueroa ; Vince Donaldson ; Vikram Gee ; Siddharth Rogers ; Sonny Clark I. ; Florin Bermudez II ; Danay Casanova ; Dong Corona ; Elier Yoo Other Interventions: Discharge Summary Assessment (RN) Last Done: 04/21/22 14:50
[2022-04-22] MEDS ORDERED: VANCOMYCIN LEVEL SCH (04:44)
== END 2022-04-21 15:21 | disposition home health service (06) | DRG 857 ==
LOC: ED 18:52 → 3E 23:15 → SUATTDRO 23:15 → 3E 04-15 00:31

== ENCOUNTER 2023-12-08 09:11 | Inpatient (IN) ==
[2023-12-08 10:55] LABS: Hematocrit (blood only) 42.4 % (42.0-52.0); Hemoglobin 13.9 g/dl (14.0-18.0); Mean Corpuscular Hemoglobin 28.2 pg (25.0-34.0); Mean Corpuscular Hgb Conc 32.8 g/dL (32.0-36.0); Mean Platelet Volume 9.7 fL (9.4-12.4); Platelet Count 349 K/uL (130-400); RDW Coefficient of Variation 12.7 % (11.5-14.5); RDW Standard Deviation 39.8 fL (36.4-46.3); Red Blood Count 4.93 M/uL (4.70-6.10); White Blood Count 6.19 K/ul (4.8-10.8)
[2023-12-08 11:17] LABS: Basophils # (auto) 0.02 K/uL (0.00-0.20); Basophils % (auto) 0.3 %; Eosinophils # (auto) 0.13 K/uL (0.00-0.50); Eosinophils % (auto) 2.1 %; Immature Granulocytes # (auto) 0.41 K/uL (0.01-0.20); Immature Granulocytes % (auto) 6.6 %; Lymphocytes # (auto) 1.63 K/uL (1.20-3.40); Lymphocytes % (auto) 26.3 %; Monocytes # (auto) 0.57 K/uL (0.11-0.59); Monocytes % (auto) 9.2 %; Neutrophils # (auto) 3.43 K/uL (1.40-6.50); Neutrophils % (auto) 55.5 %; RBC Morphology Unremarkable
[2023-12-08 11:33] LABS: Albumin Globulin Ratio 1.4 (0.9-2); Albumin Level 4.1 gm/dl (3.4-5.0); BUN Creatinine Ratio 19.2 (10-20); Bilirubin,Total 0.4 mg/dl (0.2-1.0); Calcium 9.8 mg/dl (8.6-10.3); Creatinine Clr Calc Pharmacy 107.9 ml/min; Est GFR (African American) 91.3 ml/min; Est GFR (Non-African American) 78.8 ml/min; Potassium 4.6 mmol/L (3.5-5.1); Total Protein 7.1 gm/dl (6.0-8.3)
--- NOTE | 2023-12-08 11:48 | Emergency Department Note ---
Impression & Plan Diabetic foot infection ED Provider Note NAME: MIRZA GILES AGE: 57 SEX: M : 1965 ARRIVES VIA: Walk-In INFORMANT: Patient, ED PROVIDER(S): Audrey Pittman MD CHIEF COMPLAINT: Foot wound HPI: This is a 57-year-old male with history of diabetes, chronic osteomyelitis of the ankle/foot, ESRD presenting for left foot wounds. Patient states that about 10 days ago he was putting his foot into a hot water bath he thinks may have burned his foot. He has noticed blistering to the toes 2 through 5 on the ulnar aspect. He notes that he feels no pain as he is a significant diabetic neuropathy. Patient been taking his Keflex which he took for a previous prescription. He took this for about 1 week. He states his symptoms not improving and now they are actually worsening. No fevers or chills. ROS: See above HPI for pertinent positives & negatives. A total of 10 systems reviewed and were otherwise negative. PAST MEDICAL HISTORY: See Below PAST SURGICAL HISTORY: See Below FAMILY HISTORY: See Below SOCIAL HISTORY: See Below HOME MEDICATIONS: See Below ALLERGIES: See Below VITALS: See Below PHYSICAL EXAMINATION: General: resting comfortably in no acute distress Head: Normocephalic and atraumatic Eyes: Normal inspection, extraocular muscles intact Ear, nose, throat: Normal external exam Neck: Normal range of motion Respiratory: lungs clear to auscultation bilaterally Cardiovascular: Regular rate/rhythm, no murmur GI: soft, nontender, no guarding or rebound Extremities: nontender, moves all extremities Neuro: The patient awake and alert, appropriately conversive, no focal deficits, symmetric faces Skin: Warm, dry, and intact MEDICAL DECISION MAKING: This is a 57-year-old male presenting for foot wounds. Patient put foot in hot water bath, then had suspected burn. Now has wounds overlying the bottom of the second through fifth toes. They are discolored, black/brown with pus drainage. No fluctuance. This require antibiotics, IV as well as debridement. -Patient will get vancomycin and Zosyn -Attempted to contact on-call podiatry however there is no on-call today until the th, 6 days from now -Discussed care with on-call orthopedic surgeon, Dr. Mendiola, who states that this is a case for podiatry and the orthopedics does not operate on his foot wounds. -Discussed with wound care states that they will see the patient in the inpatient setting and will consult the appropriate collection clerk, Dr. Cohn -Patient admitted for debridement of diabetic foot wound differential diagnosis: Cobian, diabetic foot wounds, ER treatment provided: See below Diagnostics interpreted by me: ECG: None Cardiac Monitoring: An order was placed for continuous cardiac monitoring. The monitor shows a rate of with rhythm. Laboratory studies: As stated above and show below. Imaging studies: See below. Past Med/Surg History Medical History Chronic osteomyelitis involving ankle and foot Failure of outpatient treatment Infected surgical wound Ulcer of right foot due to type 2 diabetes mellitus Fever Renal transplant recipient Hypertension History of peritoneal dialysis Gastroparesis Diabetes Surgical History Status post right foot surgery Hx of kidney transplant September 2017 Prema Albarran Family History Father Colorectal cancer Mother Diabetes Social History Smoking Status: Never smoker Second Hand Exposure: No; Do You Dip or Chew Tobacco: No; Hx Alcohol Use: Yes Alcohol type: beer and hard liquor Hx Substance Use: No Preferred Language: Samoan Communication Ability: Effective Wax Ball Molder Required: No Beliefs That Will Affect Care: None marital status: Current Living Situation: Spouse and Family Other Information That Helps Us Care for You: No Feels Safe at Home: Yes Safety Concerns: Feels Safe At This Time Assistive Devices: Cane, Denture - Upper, Denture - Lower and Glasses Assistive Devices Comment: has dentures but not here and doesnt wear Allergies Allergies Allergy/AdvReac Type Severity Reaction Status Date / Time ondansetron Allergy Intermediate confusion Unverified 06/08/23 14:51 bee venom protein (honey bee) Allergy Unknown SHORTNESS Verified 06/08/23 14:51 OF BREATH Home Meds Home Medications Medication Instructions Recorded Confirmed aspirin 81 mg tablet,delayed 81 mg PO QAM 09/11/19 12/08/23 release (Alejo Low Dose Aspirin) epinephrine 0.3 mg/0.3 mL 0.3 mg subcut UD PRN Anaphylaxis 09/11/19 12/08/23 injection, auto-injector (EpiPen) insulin glargine 100 unit/mL (3 48 unit subcut HS 09/11/19 12/08/23 mL) subcutaneous pen (Basaglar KwikPen U-100 Insulin) insulin lispro 100 unit/mL 0 - 120 unit subcut AC 09/11/19 12/08/23 subcutaneous pen (Humalog KwikPen (U-100) Insulin) rosuvastatin 20 mg tablet (Crestor) 20 mg PO QAM 09/11/19 12/08/23 tamsulosin 0.4 mg capsule (Flomax) 0.4 mg PO HS 09/11/19 12/08/23 belatacept 250 mg intravenous 250 mg IV MONTHLY ##0 05/30/20 12/08/23 solution acetaminophen 325 mg tablet 650 mg PO QID PRN Fever 11/19/21 12/08/23 (Tylenol) folic acid 1 mg tablet 1 mg PO DAILY 12/08/23 12/08/23 pregabalin 225 mg capsule 225 mg PO QPM 12/08/23 12/08/23 Previous Rx's Medication Instructions Recorded polyethylene glycol 3350 17 gram 17 g PO DAILY PRN constipation #30 12/26/21 oral powder packet (Miralax) ea mycophenolate sodium 180 mg 360 mg (2 x 180 mg) PO BID #120 04/21/22 tablet,delayed release tabs Results & Data (ED) Vital Signs Vital Signs - 24 hr 12/08/23 09:19 12/08/23 12:47 Temperature 36.5 C Temperature Source Temporal Artery Scan Pulse Rate 72 Pulse Rate [Right Radial] 71 Pulse Rhythm Regular Respiratory Rate 20 18 Respiratory Effort / Characteristics Non-Labored Spontaneous Respiratory Depth Normal Blood Pressure 139/74 Blood Pressure [Right Arm] 172/99 H Blood Pressure Mean 95 Blood Pressure Mean [Right Arm] 123 Pulse Oximetry 97 98 Oxygen Delivery Method Room Air Room Air Sepsis Recent Fever Within 48 Hours No Sepsis New/Unexplained Change in Mental Status No Sepsis Action Taken by Nursing No Action Required Laboratory Data 12/08/23 10:33 12/08/23 10:33 Lab Results 12/08/23 Range/Units 10:33 WBC 6.19 (4.8-10.8) K/ul RBC 4.93 (4.70-6.10) M/uL Hgb 13.9 L (14.0-18.0) g/dl Hct 42.4 (42.0-52.0) % MCV 86.0 (80.0-100.0) fL MCH 28.2 (25.0-34.0) pg MCHC 32.8 (32.0-36.0) g/dL RDW Std Deviation 39.8 (36.4-46.3) fL RDW Coeff of Dandre 12.7 (11.5-14.5) % Plt Count 349 (130-400) K/uL MPV 9.7 (9.4-12.4) fL Immature Gran % (Auto) 6.6 % Neut % (Auto) 55.5 % Lymph % (Auto) 26.3 % [place] % (Auto) 9.2 % Eos % (Auto) 2.1 % Baso % (Auto) 0.3 % Neut # (Auto) 3.43 (1.40-6.50) K/uL Lymph # (Auto) 1.63 (1.20-3.40) K/uL [place] # (Auto) 0.57 (0.11-0.59) K/uL Eos # (Auto) 0.13 (0.00-0.50) K/uL Baso # (Auto) 0.02 (0.00-0.20) K/uL Immature Gran # (Auto) 0.41 H (0.01-0.20) K/uL RBC Morphology Unremarkable ESR 58 H (0-20) mm/hr Sodium 134 L (136-145) mmol/L Potassium 4.6 (3.5-5.1) mmol/L Chloride 102 (98-107) mmol/L Carbon Dioxide 25 (21-32) mmol/L Anion Gap 7 (3-11) BUN 20 (6-23) mg/dl Creatinine 1.04 (0.6-1.4) mg/dl Est Cr Clr Drug Dosing 107.9 ml/min Est GFR ( Amer) 91.3 ml/min Est GFR (Non-Af Amer) 78.8 ml/min BUN/Creatinine Ratio 19.2 (10-20) Glucose 346 H* (70-99(Fasting)) mg/dl Calcium 9.8 (8.6-10.3) mg/dl Total Bilirubin 0.4 (0.2-1.0) mg/dl AST 15 (13-39) U/L ALT 24 (7-52) U/L Alkaline Phosphatase 94 (34-104) U/L C-Reactive Protein 1.46 H (0-0.5) mg/dl Total Protein 7.1 (6.0-8.3) gm/dl Albumin 4.1 (3.4-5.0) gm/dl Globulin 3.0 (2.5-4.0) gm/dl Albumin/Globulin Ratio 1.4 (0.9-2) Administered Medications Insulin Aspart (Insulin Aspart Per Unit Charge) 0 units SC ACHS JOSE Stop: 01/07/24 16:29 Last Admin: 12/08/23 19:59 Dose: 9 units Documented By: JUAN Co-signed By: CHANTAL Insulin Glargine (Lantus Per Unit Charge) 0 units SC TODAY@1730 JOSE; Protocol Stop: 12/08/23 23:59 Last Admin: 12/08/23 20:00 Dose: 16 units Documented By: JUAN Co-signed By: CHANTAL Discontinued Medications Gadobutrol (Gadobutrol 65ml Vial) 11.5 ml IV ONCE ONE Stop: 12/08/23 17:58 Last Admin: 12/08/23 17:58 Dose: 11.5 ml Documented By: JULIANA Vancomycin HCl 2,500 mg/ (Sodium Chloride) 550 mls @ 200 mls/hr IV NOW ONE Stop: 12/08/23 14:38 Last Infusion: 12/08/23 18:57 Dose: Infused Documented By: Admin: 12/08/23 13:20 Dose: 200 mls/hr Documented By: ALYCIA Piperacillin Sod/Tazobactam Sod (Zosyn) 4.5 gm in 100 mls @ 200 mls/hr IV NOW ONE Stop: 12/08/23 12:23 Last Infusion: 12/08/23 13:20 Dose: Infused Documented By: Admin: 12/08/23 12:44 Dose: 200 mls/hr Documented By: ALYCIA Insulin Aspart (Insulin Aspart Per Unit Charge) 0 units SC ACHS JOSE Stop: 01/07/24 13:59 Last Admin: 12/08/23 15:06 Dose: Not Given Documented By: ALYCIA Co-signed By: DOC Miscellaneous (Stop Order - Insulin Pump) 1 each N/A ONE ONE Stop: 12/08/23 15:16 Last Admin: 12/08/23 16:14 Dose: 1 each Documented By: ALYCIA Imaging Data Radiologist's Impression: Foot X-Ray 12/08/23 11:27 XR foot LT 2V HISTORY: 57 years-old Male foot wound chronic soft tissue wound of the left foot. Clinical concern for osteomyelitis COMPARISON: Ankle radiographs 06/18/2015 TECHNIQUE: 2 views of the left foot FINDINGS: Arterial calcifications. Demineralized appearance of the bones. Mild to moderate multifocal osteoarthritis. Increased sclerosis of the first proximal phalanx may represent a healed fracture deformity. No acute fracture, dislocation or osseous erosion. Diffuse soft tissue prominence. IMPRESSION: No acute osseous abnormality. ACT 112: Negative or not required by law. The above report was generated using voice recognition software. It may contain grammatical, syntax or spelling errors. Electronically signed by: Martín Ramos M.D. 12/08/2023 12:38 PM Discharge Plan Visit Data Chief Complaint: Foot Injury/Pain Stated Complaint: LEFT FOOT INJURY ED Provider: Audrey Pittman Discharge Problem: Diabetic foot infection Patient Disposition: Admitted As Inpatient Discharge Instructions Interventions: ED Discharge Assessment Last Done: 12/08/23 18:37
[2023-12-08] MEDS ORDERED: VANCOMYCIN CONSULT ACTIVE PRN ×2 (11:54→19:07)
--- NOTE | 2023-12-08 12:39 | XRay Report ---
XR foot LT 2V HISTORY: 57 years-old Male foot wound chronic soft tissue wound of the left foot. Clinical concern f or osteomyelitis COMPARISON: Ankle radiographs 06/18/2015 TECHNIQUE: 2 views of the left foot FINDINGS: Arterial calcifications. Demineralized appearance of the bones. Mild to moderate multifocal osteoarth ritis. Increased sclerosis of the first proximal phalanx may represent a healed fracture deformity. N o acute fracture, dislocation or osseous erosion. Diffuse soft tissue prominence. IMPRESSION: No acute osseous abnormality. ACT 112: Negative or not required by law. The above report was generated using voice recognition software. It may contain grammatical, syntax o r spelling errors. Electronically signed by: Martín Ramos M.D. 12/08/2023 12:38 PM
[2023-12-08] MEDS: PIPERACILLIN/TAZOBACTAM 4.5 GM/100 ML BAG IV ONE (12:44)
[2023-12-08] MEDS: VANCOMYCIN HCL 2,500 MG in SODIUM CHLORIDE 0.9% 500 ML IV ONE (13:20)
[2023-12-08] MEDS ORDERED: PHARMACY GLYCEMIC MGMT CONSULT PRN (13:34)
--- NOTE | 2023-12-08 13:39 | History & Physical Report ---
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 L foot wound in setting of uncontrolled T2DM admit to medical obtain L foot MRI ESR 58, CRP 1.46 consult podiatry, Dr. Mar Consult wound care empiric IV Vancomycin and Zosyn will need wound cultures NPO after midnight Uncontrolled T2DM, insulin dependent neuropathy and retinopathy consult glycemic pharmacy pt has insulin pump in place he is out of pump supples and dexcom CGM supplies, he will need this upon discharge consult nurses educator Lanflorinda/novolog per protocol CAD, hx of stents HTN HLD continue asa, statin blood pressure elevated on admission will follow closely, he is not on any antihypertensives Immunosuppressed Kidney Transplant status s/p IV belatacept monthly, last hold mycophenolate, confirmed with transplant nurse coordinator On -Call They ask to be kept updated on his status and when he is getting d/c. You can tiger text them under ismael TT and juma transplant nurse coordinate on- call MATT cpap at HS DVT ppx: will hold until podiatry evals pt to determine possible timing of debridement, start Chemical prophylaxis as soon as able FULL CODE PCP: Juan Dispo: admit to med/surg Pt was seen and examined in collaboration with Dr. Valdez, please see addendum History of Present Illness Chief Complaint: L foot wound Primary Care Provider: Dr. Martinez This is a 57-year-old male who has significant past medical history of uncontr olled insulin-dependent T2DM with neuropathy and retinopathy, CAD with history of angioplasty, HTN, HLD, history of kidney transplant and Charcot arthropathy who presents to ED secondary to L foot wound. He denies any feeling to his b/l feet due to neuropathy. He states he was stirring water with his left foot and it must of been hot, but he never felt anything. The next morning he woke up and noticed drainage from the sock on this L foot. Other than his foot he has been feeling fine otherwise. He denies f/c/s, chest pain,sob,n/v/d, abd pain, change in bowel or urinary habits. He has been taking keflex for his L foot to see if that would help. Typically when he gets a wound within 72 hrs he gets signs of infection. He currently takes mycophenolate as well as IV beletacept for kidney transplant. At the beginning of this week he ran out of his dexcom supplies and his CGM isn't working. He has been on the insulin pump for for last 2 months or so. The first few weeks it has been going well, but after that he has been having issues with his pump and getting certain parameters for the pump. Allergies Allergy/AdvReac Type Severity Reaction Status Date / Time ondansetron Allergy Intermediate confusion Unverified 06/08/23 14:51 bee venom protein (honey bee) Allergy Unknown SHORTNESS Verified 06/08/23 14:51 OF BREATH Home Medications Medication Instructions Recorded Confirmed Type aspirin 81 mg tablet,delayed 81 mg PO QAM 09/11/19 12/08/23 History release (Alejo Low Dose Aspirin) epinephrine 0.3 mg/0.3 mL 0.3 mg subcut UD PRN Anaphylaxis 09/11/19 12/08/23 History injection, auto-injector (EpiPen) insulin glargine 100 unit/mL (3 48 unit subcut HS 09/11/19 12/08/23 History mL) subcutaneous pen (Basaglar KwikPen U-100 Insulin) insulin lispro 100 unit/mL 0 - 120 unit subcut AC 09/11/19 12/08/23 History subcutaneous pen (Humalog KwikPen (U-100) Insulin) rosuvastatin 20 mg tablet (Crestor) 20 mg PO QAM 09/11/19 12/08/23 History tamsulosin 0.4 mg capsule (Flomax) 0.4 mg PO HS 09/11/19 12/08/23 History belatacept 250 mg intravenous 250 mg IV MONTHLY ##0 05/30/20 12/08/23 History solution acetaminophen 325 mg tablet 650 mg PO QID PRN Fever 11/19/21 12/08/23 History (Tylenol) polyethylene glycol 3350 17 gram 17 g PO DAILY PRN constipation #30 12/26/21 12/08/23 Rx oral powder packet (Miralax) ea mycophenolate sodium 180 mg 360 mg (2 x 180 mg) PO BID #120 04/21/22 12/08/23 Rx tablet,delayed release tabs folic acid 1 mg tablet 1 mg PO DAILY 12/08/23 12/08/23 History pregabalin 225 mg capsule 225 mg PO QPM 12/08/23 12/08/23 History Past Med/Surg History Medical History Chronic osteomyelitis involving ankle and foot Failure of outpatient treatment Infected surgical wound Ulcer of right foot due to type 2 diabetes mellitus Fever Renal transplant recipient Hypertension History of peritoneal dialysis Gastroparesis Diabetes Surgical History Status post right foot surgery Hx of kidney transplant September 2017 Pre[facility] Albarran Family History (Updated 12/08/23 @ 13:36 by Cha Moreno PA-C) Father Colorectal cancer Mother Diabetes Social History Smoking Status: Never smoker Second Hand Exposure: No; Do You Dip or Chew Tobacco: No; Hx Alcohol Use: Yes Alcohol type: wine Hx Substance Use: No Preferred Language: Khmer Communication Ability: Effective Steel Rule Inspector Required: No Beliefs That Will Affect Care: None marital status: Current Living Situation: Spouse Feels Safe at Home: Yes Assistive Devices: Bedside Commode and Walker Review of Systems Review of Systems: All systems reviewed & are unremarkable except as noted in HPI & below Physical Exam Physical Exam: please refer to Dr. Valdez addendum for physical exam findings. Results & Data Results & Data Vital Signs (Past 12 Hours) Vital Signs Temp Pulse Pulse Resp BP BP Pulse Ox 12/08/23 12:47 71 18 172/99 H 98 12/08/23 09:19 36.5 C 72 20 139/74 97 O2 Del Method 12/08/23 12:47 Room Air 12/08/23 09:19 Room Air Laboratory Results I have independently reviewed and interpreted patient's admitting labs including CBC, CMP Diagnostic Findings Foot X-Ray 12/08/23 11:27 XR foot LT 2V HISTORY: 57 years-old Male foot wound chronic soft tissue wound of the left foot. Clinical concern for osteomyelitis COMPARISON: Ankle radiographs 06/18/2015 TECHNIQUE: 2 views of the left foot FINDINGS: Arterial calcifications. Demineralized appearance of the bones. Mild to moderate multifocal osteoarthritis. Increased sclerosis of the first proximal phalanx may represent a healed fracture deformity. No acute fracture, dislocation or osseous erosion. Diffuse soft tissue prominence. IMPRESSION: No acute osseous abnormality. ACT 112: Negative or not required by law. The above report was generated using voice recognition software. It may contain grammatical, syntax or spelling errors. Electronically signed by: Martín Ramos M.D. 12/08/2023 12:38 PM Medications Administered Medication List Vancomycin HCl 2,500 mg/ (Sodium Chloride) 550 mls @ 200 mls/hr IV NOW ONE Stop: 12/08/23 14:38 Last Admin: 12/08/23 13:20 Dose: 200 mls/hr Documented By: ALYCIA Discontinued Medications Piperacillin Sod/Tazobactam Sod (Zosyn) 4.5 gm in 100 mls @ 200 mls/hr IV NOW ONE Stop: 12/08/23 12:23 Last Infusion: 12/08/23 13:20 Dose: Infused Documented By: Admin: 12/08/23 12:44 Dose: 200 mls/hr Documented By: ALYCIA COVID-19 Results Results COVID-19 Adm Lab Results: RBC 4.93 M/uL (4.70-6.10) 12/08/23 WBC 6.19 K/ul (4.8-10.8) 12/08/23 Hgb 13.9 g/dl (14.0-18.0) L 12/08/23 Hct 42.4 % (42.0-52.0) 12/08/23 Plt Count 349 K/uL (130-400) 12/08/23 Neutrophils (%) (Auto) 55.5 % 12/08/23 Lymphocytes (%) (Auto) 26.3 % 12/08/23 Monocytes # (Auto) 0.57 K/uL (0.11-0.59) 12/08/23 Eosinophils # (Auto) 0.13 K/uL (0.00-0.50) 12/08/23 Immature Granulocyte % (Auto) 6.6 % 12/08/23 Neutrophils # (Auto) 3.43 K/uL (1.40-6.50) 12/08/23 Lymphocytes # (Auto) 1.63 K/uL (1.20-3.40) 12/08/23 Monocytes # (Auto) 0.57 K/uL (0.11-0.59) 12/08/23 Eosinophils # (Auto) 0.13 K/uL (0.00-0.50) 12/08/23 Basophils # (Auto) 0.02 K/uL (0.00-0.20) 12/08/23 Immature Granulocyte # (Auto) 0.41 K/uL (0.01-0.20) H 12/07 Red Blood Cell Morphology Unremarkable 12/08/23 Na 134 mmol/L (136-145) L 12/08/23 K 4.6 mmol/L (3.5-5.1) 12/08/23 Cl 102 mmol/L (98-107) 12/08/23 CO2 25 mmol/L (21-32) 12/08/23 Anion Gap 7 (3-11) 12/08/23 BUN 20 mg/dl (6-23) 12/08/23 Creatinine 1.04 mg/dl (0.6-1.4) 12/08/23 BUN/Creatinine Ratio 19.2 (10-20) 12/08/23 Glucose Level 346 mg/dl (70-99(Fasting)) H* 12/08/23 Ca 9.8 mg/dl (8.6-10.3) 12/08/23 Total Bilirubin 0.4 mg/dl (0.2-1.0) 12/08/23 AST/SGOT 15 U/L (13-39) 12/08/23 ALT/SGPT 24 U/L (7-52) 12/08/23 Alkaline Phosphatase 94 U/L (34-104) 12/08/23 Total Protein 7.1 gm/dl (6.0-8.3) 12/08/23 Albumin 4.1 gm/dl (3.4-5.0) 12/08/23 Globulin 3.0 gm/dl (2.5-4.0) 12/08/23 Albumin/Globulin Ratio 1.4 (0.9-2) 12/08/23 CRP 1.46 mg/dl (0-0.5) H 12/08/23 Code Status & VTE Plan Code Status FULL CODE VTE Prophylaxis Plan VTE Prophylaxis will be ordered: Yes Supervising Physician Co-Signing Physician Notes I have seen and discussed the case with the collaborating advanced practitioner. I agree with the above H&P. I have reviewed and confirmed the patients medical history, the findings on physical examination, and the patients diagnosis and treatment plan with Tiffanie CLARK and agree with the information documented. In short, Mr. Tamez is a 57 year old gentleman with long standing insulin dependent diabetes c/b CKD s/p renal transplant at [facility], prior osteomyelitis, who is admitted for evaluation of simons sustained to digits of left lower extremity. Patient states that he was running a hot bath and using his left foot to "stir the water" while he was on the phone. He has lost sensation to temperature/pain "long ago." He otherwise states he is in his usual state of health and presenting after 1 week of antibiotics with no improvement. Labs revealed ESR 58 CRP 1.46. XR no osteo. Podiatry consulted. GENERAL APPEARANCE: AxOx4, nontoxic appearing gentleman, no acute distress. HEENT: NC, AT. MMM. EOMI, anisocoria L>R, clear conjunctiva, oropharynx clear. NECK: Supple without lymphadenopathy. No stiffness or restricted ROM. HEART: Normal rate and regular rhythm, normal S1/S1, no m/r/g LUNGS: CTAB, moving air well. No crackles or wheezes are heard. ABDOMEN: Soft, nontender, nondistended with good bowel sounds heard. BACK: No CVAT, no obvious deformity. EXTREMITIES: Without cyanosis, clubbing or edema. NEUROLOGICAL: Grossly nonfocal. Alert and oriented, moving all 4 extremities. CN not formally tested but appear grossly intact. Skin: right foot with no overt abnormalities or wounds noted. Left foot with diffuse erythema of 2-5th digit, blistering on end of great hallux, diffuse skin changes c/w varying degree of burn; 2+ pedal edema #Diffuse simons to right foot #Severe PAD #Severe neuropathy 2/2 DMTII -MRI Continue IV abx at this time Podiatry consult vascular studies #DMTII Glycemic consult as uses insulin pump #CKD s/p renal transplant [facility] retail event coordinator contacted, hold MMF Last infusion belatacept -Ensure communication/follow up prior to dispo Rest of plan as above I spent a total of 30 minutes coordinating, documenting, and providing care for this patient excluding time spent in the performance of separately billed services. All of the aforementioned completed outside of collaborating with the assigned advanced practitioner for a full treatment plan. 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
[2023-12-08] MEDS ORDERED: DEXTROSE 50% 50 ML SYRINGE IV PRN ×2 (14:00→18:28)
[2023-12-08] MEDS ORDERED: GLUCOSE 40% GEL 15 GM TUBE PO PRN ×2 (14:00→18:28)
[2023-12-08] MEDS ORDERED: GLUCAGON FOR INJ 1 MG VIAL IM PRN (14:00)
[2023-12-08] MEDS ORDERED: GLUCOSE 10 TAB/TUBE PO PRN ×2 (14:00→18:28)
[2023-12-08] MEDS ORDERED: CARBOHYDRATES FOR HYPOGLYCEMIA PO PRN ×2 (14:00→18:28)
[2023-12-08 14:32] LABS: C Reactive Protein 1.46 mg/dl (0-0.5)
[2023-12-08] MEDS: INSULIN ASPART PER UNIT CHARGE SC SCH ×2 (15:06→19:59)
--- NOTE | 2023-12-08 15:14 | Pharmacy Report ---
Pharmacy Glycemic Short Note 2 - Date of Service December 08, 2023 - Glycemic Short BSG Results (Last 24 hours): 12/08/23 12/08/23 10:33 14:50 Glucose 346 H* POC Glucose 189 H OUTPATIENT ANTIDIABETIC REGIMEN: * Insulin pump - from outpatient records - basal 1.7 units/hr, CF 20, CR 5 ASSESSMENT: * 57 year old admitted with L foot injury. Pharmacy consulted for glycemic management. Confirmed with RN patient with pump attached and instructed RN to have patient take off this afternoon and that we will be managing with SQ insulin * Patient last bolused themselves with pump with 10 units at 1:30 - BSG repeat this afternoon trending down 189 mg/dL * Plan to start basal insulin with dinner this evening, will provide scale based upon BSG PLAN FOR INPATIENT GLYCEMIC CONTROL: * Hold outpatient oral diabetes medications * Basal insulin * Lantus 35-45 units hs * Bolus insulin * NovoLog per scale ACHS or Q6hrs while NPO * Goal Range: Low 110 mg/dL - High 140 mg/dL * Correction Factor: 15 mg/dL/unit * Nutritional / Prandial insulin per carb ratio of 1 unit per 5 grams CHO consumed
--- NOTE | 2023-12-08 16:47 | Podiatry Consultation ---
Date of Consultation December 08, 2023 Assessment & Plan (1) Wound of left foot: (2) Chronic ulcer of left foot with fat layer exposed: (3) Dry gangrene: (4) Diabetic foot infection: (5) Diabetes mellitus with hyperglycemia: Diabetes mellitus skilled nursing insulin use: with terminal make up operator use Diabetes mellitus type: type 2 Qualified Code(s): E11.65 - Type 2 diabetes mellitus with hyperglycemia; Z79.4 - skilled nursing (current) use of insulin Plan Patient was examined and evaluated. We discussed at length etiology and treatment of his left foot ulcers and infection. We did discuss that while IV antibiotics did help avoid amputation previously, my concern at this time is that the left lesser toes may be nonviable due to underlying significant peripheral arterial disease. This could have also been an embolic event leading to the necrosis of the third toe and potentially second, fourth, and fifth toes. These toes do appear most consistent with dry gangrene rather than a simple ulceration or osteomyelitis. He is currently pending an MRI with a arterial Doppler scheduled for later today or tomorrow. These will help guide us as far as surgical treatment is concerned. At the very least, he is likely to require sharp debridement of these ulcers to encourage healing. If his vascular status is more in doubt, he may have to attempt enzymatic debridement or simply a more proximal level amputation. This is why the further testing is so beneficial at this time. Thank you for the consult, we look forward to providing Mr. Tamez with excellent care while he remains in house. Further, we did discuss this case briefly with Dr. Vince Donaldson who has been his senior it engineer in the past, though is out of town at this time. History of Present Illness Reason for Consultation: Left forefoot ulcerations and cellulitis History of Present Illness This patient is a recent ED admission who presented to the hospital himself for worsening left foot ulcerations. He states that he has been doctoring them himself and that recently he has he has noticed changes to them. Specifically, his told him that the digits were getting darker and worse looking recently. This led him to show up to the hospital this morning for evaluation and treatment. He states that he has a history of right foot osteomyelitis which was treated with IV antibiotics. He was able to avoid digital amputation for these prior infections. Now, he states these left forefoot ulcers developed after a likely thermal burn. He states that he tested the temperature of the water with his left foot, but he is completely insensate and did not notice until the next day that he developed blistering to the toes. Now, while the ulcers are worse, he states that he feels well. He denies any nausea, vomiting, fevers, chills, or shortness of breath. He does admit to some fatigue. He does admit to uncontrolled diabetes recently that he blames on his glucose monitoring system not working correctly. Other than that, he denies any recent medical history change. Allergies Allergy/AdvReac Type Severity Reaction Status Date / Time ondansetron Allergy Intermediate confusion Unverified 06/08/23 14:51 bee venom protein (honey bee) Allergy Unknown SHORTNESS Verified 06/08/23 14:51 OF BREATH Home Medications Medication Instructions Recorded Confirmed Type aspirin 81 mg tablet,delayed 81 mg PO QAM 09/11/19 12/08/23 History release (Alejo Low Dose Aspirin) epinephrine 0.3 mg/0.3 mL 0.3 mg subcut UD PRN Anaphylaxis 09/11/19 12/08/23 History injection, auto-injector (EpiPen) insulin glargine 100 unit/mL (3 48 unit subcut HS 09/11/19 12/08/23 History mL) subcutaneous pen (Basaglar KwikPen U-100 Insulin) insulin lispro 100 unit/mL 0 - 120 unit subcut AC 09/11/19 12/08/23 History subcutaneous pen (Humalog KwikPen (U-100) Insulin) rosuvastatin 20 mg tablet (Crestor) 20 mg PO QAM 09/11/19 12/08/23 History tamsulosin 0.4 mg capsule (Flomax) 0.4 mg PO HS 09/11/19 12/08/23 History belatacept 250 mg intravenous 250 mg IV MONTHLY ##0 05/30/20 12/08/23 History solution acetaminophen 325 mg tablet 650 mg PO QID PRN Fever 11/19/21 12/08/23 History (Tylenol) polyethylene glycol 3350 17 gram 17 g PO DAILY PRN constipation #30 12/26/21 12/08/23 Rx oral powder packet (Miralax) ea mycophenolate sodium 180 mg 360 mg (2 x 180 mg) PO BID #120 04/21/22 12/08/23 Rx tablet,delayed release tabs folic acid 1 mg tablet 1 mg PO DAILY 12/08/23 12/08/23 History pregabalin 225 mg capsule 225 mg PO QPM 12/08/23 12/08/23 History Patient History Medical History Chronic osteomyelitis involving ankle and foot Failure of outpatient treatment Infected surgical wound Ulcer of right foot due to type 2 diabetes mellitus Fever Renal transplant recipient Hypertension History of peritoneal dialysis Gastroparesis Diabetes Surgical History Status post right foot surgery Hx of kidney transplant September 2017 [facility] Family History Father Colorectal cancer Mother Diabetes Social History Smoking Status: Never smoker Second Hand Exposure: No; Do You Dip or Chew Tobacco: No; Hx Alcohol Use: Yes Alcohol type: beer and hard liquor Hx Substance Use: No Preferred Language: Luxembourgish Communication Ability: Effective Induction Furnace Operator Required: No Beliefs That Will Affect Care: None marital status: Current Living Situation: Spouse and Family Feels Safe at Home: Yes Assistive Devices: Cane, Denture - Upper, Denture - Lower and Glasses Review of Systems Review of Systems: All systems reviewed & are unremarkable except as noted in HPI & below Constitutional: + fatigue and + weakness; no fever and n o chills Eyes: no problem reported Ear, Nose, Mouth, Throat: no problem reported Respiratory: no problem reported Cardiovascular: no problem reported Gastrointestinal: no problem reported Genitourinary: no problem reported Musculoskeletal: + limited range of motion Integumentary: + non-healing lesions, + skin ulcer and + wounds Neurologic: + loss of sensation and + numbness Psychiatric: no problem reported Endocrine: no problem reported Physical Exam Physical Exam: lower extremity focused exam: DP/PT pulses nonpalpable. Limb temperature is cool to cool proximal to distal. Advanced trophic changes are noted bilaterally, including thinning of the skin and hair growth. No obvious biomechanical abnormalities noted to the right foot. Left foot has semirigid hammertoe contractures 2 to toes 2 through 4 with diffuse ulceration extending across all of the lesser digits. Specifically, the left third and fifth toes are exhibiting evidence of dry gangrene, including delayed capillary fill time, thickening of the skiin,, and diffuse hardening distally. There is no liat purulence and no active bleeding on clinical exam. Minimal malodor is appreciated. No ascending cellulitis is appreciated. Absent protective and touch sensation is noted. No pain on palpation or range of motion of the toes. Constitutional: well developed, well nourished, + ill appearing and + obese Eyes: PERRL, conjunctivae normal, anicteric sclerae ENMT: external ear and nose normal, oropharynx normal Neck: trachea midline, no thyromegaly Respiratory: normal respiratory effort, lungs clear to auscultation no respiratory distress Cardiovascular: Rate/Rhythm: regular rate and regular rhythm Vessels: + posterior tibial pulses abnormal and + dorsalis pedis pulses abnormal Gastrointestinal (Abdomen): normal bowel sounds, soft, nontender, no hepatosplenomegaly Musculoskeletal: no cyanosis or clubbing, extremities motor strength 5/5 Skin: no rashes, warm and dry + lesion, + ulcer and + eschar Neurologic: moves all extremities; + abnormal touch/pain/proprioception and + abnormal sensation to monofilament Psychiatric: A+Ox3, euthymic affect Results & Data Vital Signs (Past 12 Hours) Vital Signs Temp Pulse Pulse Resp BP BP Pulse Ox 12/08/23 16:00 70 18 148/84 H 97 12/08/23 14:00 70 18 162/76 H 94 12/08/23 12:47 71 18 172/99 H 98 12/08/23 09:19 36.5 C 72 20 139/74 97 O2 Del Method 12/08/23 16:00 Room Air 12/08/23 14:00 Room Air 12/08/23 12:47 Room Air 12/08/23 09:19 Room Air Diagnostic Findings plain film radiographs reveal hardening/calcifications of the arteries diffusely throughout the foot. There is no evidence of osteomyelitis to the digits. No acute findings are noted otherwise.
[2023-12-08] MEDS: GADOBUTROL 65ML VIAL IV ONE (17:58)
[2023-12-08] MEDS ORDERED: ACETAMINOPHEN 325 MG TAB PO PRN (18:28)
[2023-12-08] MEDS ORDERED: ALUMINUM/MAGNESIUM SUSP 30 ML UDC PO PRN (18:28)
[2023-12-08] MEDS ORDERED: POLYETHYLENE (MIRALAX) 17 GM PACK PO PRN (18:28)
[2023-12-08] MEDS ORDERED: GLUCAGON FOR INJ 1 MG VIAL SQ PRN (18:28)
[2023-12-08] MEDS ORDERED: MAGNESIUM HYDROXIDE SUSP 30 ML UDC PO PRN (18:28)
--- NOTE | 2023-12-08 19:35 | Magnetic Resonance Report ---
MRI OF THE LEFT FOREFOOT COMBO CLINICAL HISTORY: Infection. Clinical concern for osteomyelitis. Toe wounds. COMPARISON STUDY: Radiographs of the left foot dated 12/08/2023. TECHNIQUE: MRI of the left forefoot is performed utilizing various T1 and T2-weighted sequences in th e axial, sagittal, and coronal planes. Contrast-enhanced sequences are acquired following the IV admi nistration of 11.5 mL of Gadavist. FINDINGS: There is no MRI evidence of acute fracture. There is marrow edema identified within the sec ond through fifth distal phalanges. There is also mild marrow edema within the third middle phalanx. There is no corresponding drop in marrow signal in the T1-weighted sequences and no destructive bony change is seen. No additional foci of marrow edema are seen throughout the forefoot. There is soft ti ssue edema suggested in the toes. No fluid collection is identified. The imaged portions of the flexo r and extensor tendons are intact. Visualized portions of the plantar fascia are maintained. The Lisf ranc ligament is preserved. There is an 8 mm pocket of fluid arising from the dermal surface on the p lantar aspect of the second toe at the level of the distal interphalangeal joint. This may represent a blister. IMPRESSION: 1. There is marrow edema seen distally within the second through fifth toes as above. There is no cor responding drop in signal on the T1-weighted sequences, no destructive bony change is seen. This like ly represents osteitis of these bones. There is no clear MRI evidence of osteomyelitis. 2. Soft tissue edema throughout the toes likely represents cellulitis. 3. No organized fluid collection is seen to suggest abscess. 4. Possible blister along the plantar aspect of the second toe. Correlate with direct visualization. Dictated: 12/08/2023 7:14 PM Transcribed: 12/08/2023 7:24 PM Ruel [id number] [email or web address] Electronically signed by: Mendoza Sandoval M.D. 12/08/2023 7:34 PM
[2023-12-08] MEDS: LANTUS PER UNIT CHARGE SC SCH (20:00)
--- OUTSIDE RECORDS SUMMARY | 2023-12-08 20:02 | External Medical Summary | Summary of Care ---
Author Name Unknown Organization [facility] Address [address] [place] [address] Phone [phone] Care Team Providers Care Hub Inventory Specialist Name Role Phone Ivan Martinez MD Primary Care Provide r Reason for Visit * Reason Comments Medication Administration Nulojix Procedure Labs from port * Episode Based Medications (Routine) - Pending Review Specialty Diagnoses / Procedures Referred By Bob t Referred To Contact Diagnoses Kidney replaced by transplant Procedures [facility] INJECTION Elder Rooney, DNP [address] [place] [address] Anc Hem/Onc [facility] DEPT CLOSED - 08/16/23 [address] [place] [address] Referral ID Status Reason Start Date Expiration Date V isits Requested Visits Authorized [id number] Pending Review 10/05/2023 10/05/[phone] Encounter Details Date Type Department Care Team (Latest Contact Info) Description 12/01/2023 9:00 AM EST Hem/Onc Treatment Hematology/Oncolog y Treatment, [place] [address] [place] [address] Susan, Chair [address] Hem On[address] [place] [address] Kidney replaced by transplant*; Need for prophylactic immunotherapy Allergies Active Allergy Reactions Criticality Noted Date Comments Bee Venom 04/03/2002 Ondansetron Hcl Edema Other 07/12/2017 All over swelling documented as of this encounter (statuses as of 12/01/2023) Medications Medication Sig Dispensed Refills Start Date End Date Status BD PEN NEEDLE BLUE U/F 32G X 4 MM 5 02/05/2016 Active EPINEPHrine, anaphylaxis, (EPI-PEN) 0.3 MG/0.3ML SOAJ injection Use as directed. 1 06/22/2017 Active D5W 5% SOLN 100 mL with belatacept 250 MG SOLR Administer 5 mg/kg intravenously once. Induction then monthly 0 Active Rosuvastatin Calcium 20 MG Oral Tablet Take 1 Tablet by mouth in the morning. 0 Active folic acid 1 MG Tablet Take 1 Tablet by mouth in the morning. 0 Active Insulin Glargine 100 UNIT/ML Subcutaneous Solution Pen-injector Inject 48 Units under the skin in the morning and 48 Units before bedtime. 0 Active Lidocaine-Prilocai ne 2.5-2.5 % External Kit (Emla) Apply a pea-sized amount over mediport 30 minutes prior to access. Cover with occlusive dressing/plastic wrap until prep 5 g 5 05/06/2021 Active Lidocaine-Prilocai ne 2.5-2.5 % External Cream (Emla)Indications: Kidney replaced by transplant,Need for prophylactic immunotherapy Apply topically to affected area as needed (Mediport site prior to Monthly infusion). Apply to Mediport site prior to Monthly infusion 30 g 0 09/14/2021 Active Aspirin EC 81 MG Oral Tablet Delayed ReleaseIndications :Kidney replaced by transplant,Type 2 diabetes mellitus with hemoglobin A1c goal of less than 7.0% ([facility]) Take 1 Tablet by mouth in the morning. 0 Active Lidocaine 5 % External Patch (Lidoderm)Indicati ons:Peripheral neuropathic pain Place 1 Patch topically on the skin daily. 12 hours ON and 12 hours OFF 30 Patch 5 11/04/2022 Active Gvoke HypoPen 2-Pack 1 MG/0.2ML Subcutaneous Solution Auto-injector (Glucagon) Inject 1.0 mg under the skin of belly/thigh or upper arm as needed for unresponsiveness due to suspected hypoglycemia 0.4 mL 11 02/16/2023 Active Dexcom G6 Asset Protection Representative Device Use as directed 1 Each 0 02/16/2023 Active Dexcom G6 Sensor Apply a new sensor every 10 days 9 Each 3 02/16/2023 Active Dexcom G6 Transmitter Use with [employer] continuous glucose sensor as directed by seasoning sprayer 1 Each 4 02/16/2023 Active Tamsulosin HCl 0.4 MG Oral Capsule (Flomax) TAKE 1 CAPSULE BY MOUTH EVERY DAY AT NIGHT 90 Capsule 3 04/18/2023 Active HumaLOG KwikPen 100 UNIT/ML Subcutaneous Solution Pen-injectorIndica tions:Hyperglycemi a,Type 2 diabetes mellitus with hemoglobin A1c goal of less than 7.0% (HCC) Inject 26 units plus sliding scale three times daily with meals. Needs up to 80 u/d 75 mL 3 04/28/2023 Active dilTIAZem HCl ER Coated Beads 240 MG Oral Capsule Extended Release 24 Hour (Cardizem CD)Indications:Chr onic coronary artery disease,HTN, goal below 130/80,S/P primary angioplasty with coronary stent,Paroxysmal atrial fibrillation (HCC) TAKE 1 CAPSULE BY MOUTH EVERY DAY 90 Capsule 3 05/03/2023 Active Omnipod 5 G6 Pod (Gen 5) Use as directed. Use up to 200 units via insulin pod every 24 hours. 90 Each 3 07/15/2023 Active Pregabalin 225 MG Oral Capsule (Lyrica) Take 1 Capsule by mouth every evening. 90 Capsule 1 08/24/2023 Active HumaLOG 100 UNIT/ML Subcutaneous Solution Use to fill Omnipod with 200 units every 2 days. E11.9 and Z96.41 30 mL 11 08/24/2023 Active Mycophenolate Sodium 180 MG Oral Tablet Delayed Release (Myfortic)Indicati ons:Kidney replaced by transplant,Need for prophylactic immunotherapy Take 360 mg by mouth in the morning and 360 mg before bedtime. 360 Tablet 3 10/11/2023 Active Fluconazole 150 MG Oral Tablet (Diflucan)Indicati ons:Candidal skin infection Take 1 Tablet by mouth once a week. Until gone 4 Tablet 0 10/25/2023 Active Nystatin 441478 UNIT/GM External Powder (Nystop)Indication s:Candidal skin infection Apply topically to affected area 3 times a day. 300 g 1 10/25/2023 Active documented as of this encounter (statuses as of 12/01/2023) Active Problems Problem Noted Date Diagnosed Date Type 2 diabetes mellitus wit h diabetic neuropathy, with long-term current use of insulin 10/25/2023 Charcot's joint of right foot 02/16/2023 Immunosuppressive management encounter following kidney transplant 02/17/2021 Need for prophylactic immunotherapy 08/28/2019 Last Assessment & Plan: Tolerating IS regimen well. Belatacept - 5 mg/kg/month Myfortic - 360 mg bid Erythrocytosis 06/15/2019 Kidney replaced by transplant 10/20/2018 Last Assessment & Plan: Doing well. Cr 1.1, stable. Encounter for surveillance of abnormal nevi 03/2017 Overview: Mildly dysplastic nevus (R upper arm) Severe sleep apnea 05/21/2016 Overview: APAP 5-18 cwp 04/13/16 PSG: AHI 46.7, 21 mins <89% DHC Proliferative diabetic retin opathy without macular edema associated with type 2 diabetes mellitus 01/06/2016 Peripheral neuropathic pain 10/23/2015 Transient alteration of awareness 09/22/2015 Orthostatic hypotension 10/11/2013 Chronic coronary artery disease 10/11/2013 S/P primary angioplasty with coronary stent 06/2014 IMPOTENCE, ORGANIC ORIGN 08/26/2006 ADVANCE DIRECTIVE INFORMATION 03/31/2006 Overview: No, Advance Directive brochure offered , patient declined. Type 2 diabetes mellitus wit h hemoglobin A1c goal of less than 7.0% 04/01/2004 Overview: ICD-10 update of inactive term Last Assessment & Plan: Needs better glucose control. Had a very liat conversation with Norm, as did our pharmacist. His graft will likely not survive long-term without improvements in glucose. He is to work on this. Last A1c 11.1. Tobacco use disorder HTN, goal below 130/80 documented as of this encounter (statuses as of 12/01/2023) Resolved Problems Problem Noted Date Diagnosed Date Resolved Date Syncope and collapse 09/12/2019 023 Overview: Possible Cardiac enzymes elevated 09/12/201911/2022 Multiple closed fractures of cervical vertebrae 09/12/2019 11/04/2022 Overview: C3 bilateral pedicle and body fracture, C6-7 spinous process fracture Thoracic spine fracture 09/12/2019 02/0 11/2022 Overview: Age indeterminate T1 and T3 superior endplate fx ESRD (end stage renal disease) on dialysis 09/29/2018 09/29/2018 Pre-transplant evaluation fo r ESRD (end stage renal disease) 11/15/2012 11/04/2022 documented as of this encounter (statuses as of 12/01/2023) Immunizations Name Administration Dates Next Due PPD 11/27/2014,07/18/2012 Pneumococcal Conjugate Vaccine, 7 Valent 012 Pneumococcal Polysaccharide PPV23 (Pneumovax) Seasonal Influenza, PF, 6 M & above, IM , (FluLaval or Fluzone) 06/14/2018 Seasonal Influenza, Quadrivalent, No Preserve, I M 08/14/2019 documented as of this encounter Social History Tobacco Use Types Packs/Day Years Used Date Smoking Tobacco: Never Smokeless Tobacco: Current Chew Comments:One bag q two days Alcohol Use Standard Drinks/Week Comments Not Currently 0 (1 standard drink = 0.6 oz pur e alcohol) AUDIT-C Answer Date Recorded Frequency of Alcohol Consumption Never 09/11/2019 Average Number of Drinks Not on file 019 Frequency of Binge Drinking Not on file 09/02 Sex and Gender Information Value Date Recorded Sex Assigned at Not on file Gender Identity Not on file Sexual Orientation Not on file Job Start Date Occupation Industry Not on file Not on file Not on file documented as of this encounter Last Filed Vital Signs Vital Sign Reading Time Taken Comments Blood Pressure 120/80 12/01/2023 9:21 AM EST Pulse 85 12/01/2023 9:21 AM EST Temperature 36.6 C (97.9 F) 12/01/2023 9:21 AM ES T Respiratory Rate 16 12/01/2023 9:21 AM EST Oxygen Saturation 96% 12/01/2023 9:21 AM EST Inhaled Oxygen Concentration - - Weight - - Height - - Body Mass Index - - documented in this encounter Functional Status Functional Status Response Date of Assess ment Are you blind or do you have serious difficulty seeing, even when wearing glasses? No 09/11/2019 Do you have serious difficul ty walking or climbing stairs? (5 years old or older) No 09/11/2019 Do you have difficulty dress ing or bathing? (5 years old or older) No 09/11/2019 Because of a physical, menta l, or emotional condition, do you have difficulty doing errands alone such as visiting a doctor s office or shopping? (15 years old or older) No 09/11/20 19 Cognitive Status Response Date of Assessm ent Because of a physical, menta l, or emotional condition, do you have serious difficulty concentrating, remembering, or making decisions? (5 years old or older) No 09/11/2019 documented as of this encounter Nursing Notes * Mauricio Hernandez RN - 12/01/2023 10:43 AM EST Pt infusion completed without issues. Port flushed with Heparin/NSS by August Cerna RN without issue, positive blood return. Pt ambulated from treatment room in stable condition. Goals: Pt will remain free from injury. Possible barriers to meeting goals: IV line Stability of the patient: Moderately stable - low risk of patient condition declining or worsening Summary regarding today's goals: Met: Pt remained free from injury. * Mauricio Hernandez RN - 12/01/2023 9:21 AM EST Chair 9. VAD accessed without issues. Positive blood return. Labs completed from port with 10mL waste prior to drawing. Pt tolerated well. Safety and Risk for Injury Patient will remain free from injury. Ensure appropriate safety devices are available. Provide and maintain safe environment. documented in this encounter Plan of Treatment Upcoming Encounters Date Type Department Care Team (Late st Contact Info) Description 12/22/2023 10:30 AM EDT Office Visit Transplant Clinic, [address] [address] Elder Rooney [facility] [address] [place] [address] 12/28/2023 3:40 PM EDT Office Visit [facility] Medicine [address] [place] [id number] Ivan Martinez MD [address] [place] [address] [place] [address] 12/29/2023 10:45 AM EDT Hem/Onc Treatment Hematology/Oncology Treatment, [place] [address] [facility] [place] [phone] Susan, Chair [address] Hem On[address] [place] [address] 01/19/2024 2:30 PM EDT Office Visit Endocrinology, [place] [address] [place] [address] Prema, Pharmacist Endocrinology [address] [place] [address] 03/20/2024 7:30 AM EDT Office Visit Endocrinology, [place] [address] [place] [address] Codi Cam PA-C [address] [place] [address] Pending Results Name Type Priority Associated Diagnoses Date /Time BK VIRUS DNA, QUANTITATIVE REAL-TIME PCR, BLOOD Lab STAT Kidney replaced by transplant Need for prophylactic immunotherapy 12/01/2023 9:02 AM EST ALBUMIN / CREATININE RATIO, URINE Lab STAT Kidney replaced by transplant Need for prophylactic immunotherapy 12/01/2023 10:39 AM EST Health Maintenance Due Date Last Done Comments COVID-19 Vaccine (#1) 1969 Depression Screening 1976 DTaP,Tdap,and Td Vaccines (1 - Tdap) 12/24/1983 Hepatitis B (1 of 3 - 19+ 3-dose series) 12/24/1983 Zoster Vaccines (1 of 2) 12/24/1983 Cologuard 2009 Colonoscopy 2009 Colorectal Cancer Screening 2009 Fecal Occult Blood Test 2009 Sigmoidoscopy 2009 Pneumococcal Vaccine: Pediatrics (0 to 5 Years) and At-Risk Patients (6 to 64 Years) (2 of 2 - PCV) 06/03/2014 06/03/2013 Diabetic Eye Exam 01/05/2017 01/06/2016, , 01/06/2016, Additional history exists Influenza Vaccine (FLU shot) (#1) 2023 08/14/2019, 06/30/2018, 06/14/2018, Additional history exists Diabetic Foot Exam 02/17/2024 02/16/2023, 08/26/2006 HbA1c 05/03/2024 11/03/2023, 05/2023, 02/21/2023, Additional history exists Albumin/Creatinine Ratio 11/03/2024 024, 10/05/2023, 09/07/2023, Additional history exists GFR 11/30/2024 12/01/2023, 10/2023, 10/05/2023, Additional history exists GARDASIL-HPV IMMUNIZATION SERIES Aged Out No longer eligible based on patient's age to complete this topic MENINGOCOCCAL (MENACTRA/MENVEO) Aged Out No longer eligible based on patient's age to complete this topic documented as of this encounter Medical Devices Implanted Type Area Director Business Development Device Identifier Shelf Expiration Date Model / Serial / Lot Port Implant W/8f Poly Cath - [id number] Implanted:Qty : 1 on 05/12/2021 by Dong Ackerman, at [facility] Right: Chest CR BARD : PERIPHERAL VASCULAR [id number] 08/02/2021 [id number] / / [id number] documented as of this encounter Procedures Procedure Name Priority Date/Time Associated Diagnosis Comments DIFFERENTIAL, AUTOMATED STAT 12/01/2023 9:02 AM EST Kidney replaced by transplant Need for prophylactic immunotherapy BASIC METABOLIC PANEL STAT 12/01/2023 9:02 AM EST Kidney replaced by transplant Need for prophylactic immunotherapy CBC STAT 12/01/2023 9:02 AM EST Kidney replaced by transplant Need for prophylactic immunotherapy CBC STAT 12/01/2023 9:02 AM EST Kidney replaced by transplant Need for prophylactic immunotherapy DIFFERENTIAL, TECHNOLOGIST REVIEW Routine 12/01/2023 9:02 AM EST Kidney replaced by transplant Need for prophylactic immunotherapy documented in this encounter Results * (ABNORMAL) DIFFERENTIAL, TECHNOLOGIST REVIEW (12/01/2023 9:02 AM EST) WBC 7.09 4.00 - 10.80 K/uL 12/01/2023 9:41 AM EST [facility] Neutrophils % 77.0(H) 40.0 - 75.0 % 12/01/2023 9:41 AM EST [facility] Lymphocytes % 15.0(L) 18.0 - 42.0 % 12/01/2023 9:41 AM EST [facility] Monocytes % 4.0 1.0 - 11.0 % 12/01/2023 9:41 AM EST [facility] Eosinophils % 2.0 0.0 - 6.0 % 12/01/2023 9:41 AM [facility] Metamyelocytes % 2.0(H) <=0.0 % 12/01/19 9:41 AM EST [facility] Absolute Neutrophils 5.46 1.80 - 7.70 K/uL 12/01/2023 9:41 AM EST [facility] Absolute Lymphocytes 1.06 1.00 - 4.80 K/uL 12/01/2023 9:41 AM EST [facility] Absolute Monocytes 0.28 0.00 - 1.10 K/uL 12/01/2023 9:41 AM EST [facility]-02 Absolute Eosinophils 0.14 0.00 - 0.70 K/uL 12/01/2023 9:41 AM EST [facility] Absolute Metamyelocytes 0.14(H) <=0.00 K/uL 12/01/2023 9:41 AM EST [facility] nRBCs 12/01/2023 9:41 AM EST [facility] Reactive Lymphocytes Present(A ) None Seen 12/01/2023 9:41 AM EST [facility] Blood Blood sample taken from central line / Unknown Central Line / Unknown 12/01/2023 9:02 AM EST 12/01/2023 9:21 AM EST Elder Rooney DNP LAB BLOOD [facility]A [facility] [address] [place] [address] * DIFFERENTIAL, AUTOMATED (12/01/2023 9:02 AM EST) Blood Blood sample taken from central line / Unknown Central Line / Unknown 12/01/2023 9:02 AM EST 12/01/2023 9:21 AM EST Elder Rooney DNP LAB BLOOD ORDERA BLES Performing Organization Address City/[facility]/ZIP Co de Phone Number [facility] [address] [place] [address] * CBC (12/01/2023 9:02 AM EST) WBC 7.09 4.00 - 10.80 K/uL 12/01/2023 9:41 AM [facility] 56 RBC 4.94 4.50 - 5.25 M/uL 12/01/2023 9:41 AM [facility] 56- HGB 14.2 14.0 - 16.8 g/dL 12/01/2023 9:41 AM [facility] 56- HCT 42.9 40.0 - 48.4 % 12/01/2023 9:41 AM [facility] 56- MCV 86.8 82.0 - 99.5 fL 12/01/2023 9:41 AM [facility] 56- MCH 28.7 27.0 - 34.0 pg 12/01/2023 9:41 AM EST [facility] 56- MCHC 33.1 32.0 - 36.0 g/dL 12/01/2023 9:41 AM [facility] 56 RDW 14.1 11.5 - 15.5 % 12/01/2023 9:41 AM [facility] 56 PLT 214 140 - 400 K/uL 12/01/2023 9:41 AM [facility] 56 MPV 10.1 6.6 - 11.1 fL 12/01/2023 9:41 AM [facility] 56 Blood Blood sample taken from central line / Unknown Central Line / Unknown 12/01/2023 9:02 AM EST 12/01/2023 9:21 AM EST Elder Rooney DNP LAB BLOOD ORDERA BLES [facility] [address] [place], [place] [id number] * (ABNORMAL) BASIC METABOLIC PANEL (12/01/2023 9:02 AM EST) BUN 18 6 - 20 mg/dL 12/01/2023 10:05 AM [facility] 56 Creatinine 0.9 0.6 - 1.2 mg/dL 12/01/2023 10:05 AM [facility] 56 Estimated Glomerular Filtration Rate >90 >=60 mL/min 12/01/2023 10:05 AM [facility] 56 Comment:eGFR is calculated b ased on the CKD-EPI 2020 equation Sodium 137 135 - 146 mmol/L 12/01/2023 10:05 AM [facility] 56 Potassium 4.7 3.5 - 5.1 mmol/L 12/01/2023 10:05 AM [facility] 56 Chloride 103 98 - 107 mmol/L 12/01/2023 10:05 AM [facility] 56 CO2 25 22 - 32 mmol/L 12/01/2023 10:05 AM [facility] 56 Anion Gap 9 7 - 15 mmol/L 12/01/2023 10:05 AM [facility] 56 Glucose 180(H) 70 - 120 mg/dL 12/01/2023 10:05 AM [facility] 56 Calcium 10.2 8.4 - 10.2 mg/dL 12/01/2023 10:05 AM [facility] 56 Blood Blood sample taken from central line / Unknown Central Line / Unknown 12/01/2023 9:02 AM EST 12/01/2023 9:21 AM EST Elder Rooney DNP LAB BLOOD ORDERA BLES [facility] [place] [address] documented in this encounter Visit Diagnoses Diagnosis Kidney replaced by transplant- Primary Need for prophylactic immunotherapy documented in this encounter Administered Medications Active Administered Medications - up to 3 most recent administrations Medication Order MAR Action Action Date Dose Rate Site diphenhydrAMINE (Benadryl) inj 50 mg 50 mg, IV Push, ONCE PRN Other, Hypersensitivity Reaction, Starting on Tue12/01/23 at 0920, Until Tue12/02/23 at 0919, For 24 hours EPINEPHrine 1 MG/ML inj 0.3 mg 0.3 mg, Intramuscular, ONCE PRN Other, Hypersensitivity Reaction or Anaphylaxis, Starting on Tue12/01/23 at 0920, Until Tue12/02/23 at 0919, For 24 hours hEParin 100 UNIT/ML Lock Flush inj 500 Units 500 Units (5 mL), IV Lock, PRN Other, IV Flush, Starting on Tue12/01/23 at 0920, Until Tue12/02/23 at 0919, For 24 hours, Do not flush if lock, PICC, or central line not in place; IV infusing or unable to flush. Given 12/01/2023 10:28 AM EST 500 Units Hydrocortisone Sod Suc (PF) (Solu-Cortef) inj 100 mg 100 mg, IV Push, ONCE PRN Other, Hypersensitivity Reaction, Starting on Tue12/01/23 at 0920, Until Tue12/02/23 at 0919, For 24 hours NSS infusion 500 mL, Intravenous, at 10 mL/hr, CONTINUOUS, Starting on Tue12/01/23 at 1030, Until Tue12/01/23 at 2028 Start Infusion 12/01/2023 9:56 AM EST 500 mL 10 mL/hr sodium chloride 0.9 % flush/inj 10 mL 10 mL, IV Push, PRN Other, IV Flush, Starting on Tue12/01/23 at 0920, Until Tue12/02/23 at 0919, For 24 hours, Do not flush if lock, PICC, or central line not in place; IV infusing or unable to flush. Given 12/01/2023 10:28 AM EST 10 mL Inactive Administered Medications - up to 3 most recent administrations Medication Order MAR Action Action Date Dose Rate Site Belatacept (Nulojix) 575 mg in NSS 100 mL infusion 575 mg (rounded from 577 mg = 5 mg/kg 115.4 kg Treatment plan Recorded weight), Intravenous, ONCE, 1 dose, On [place] 12/01/23 at 1100, Administer over 30 Minutes, Final conc. between 2 and 10 mg/mL Administer over 30 minutes with an infusion set and a sterile, nonpyrogenic, [id number]-[id number] filter (pore size of 0.2 to 1.2 micrometer) Start Infusion 12/01/2023 9:56 AM EST 575 mg 200 mL/hr documented in this encounter Advance Directives Latest Code Status on File Code Status Date Activated Date Inactivated Comments Full Code 09/11/2019 5:08 PM 09/14/2019 6:51 PM Thi s order reflects the patients wishes and were consensually agreed upon. Code Status History Code Status Date Activated Date Inactivated Comments Full Code 09/25/2018 5:03 AM 09/28/2018 10:11 PM Th is order reflects the patients wishes and were consensually agreed upon. Question Answer Comments Discussion of Advance Directives occurred with: Not Discussed Does the patient have a Living Will? No Does the patient have Health Care Power of Cue Worker? No Full Code 09/24/2018 3:28 PM 09/25/2018 5:03 AM Thi s order reflects the patients wishes and were consensually agreed upon. Question Answer Comments Discussion of Advance Directives occurred with: Not Discussed Does the patient have a Living Will? No Does the patient have Health Care Power of Cue Worker? No Care Teams Hub Inventory Specialist Relationship Specialty Start Date End Date Ivan Martinez MD [address] [place] [address] [place] [phone] PCP - General Family Medicine 10/19/23 documented as of this encounter
--- OUTSIDE RECORDS SUMMARY | 2023-12-08 20:02 | External Medical Summary ---
Author Name Unknown Address Unknown Organization K01:[facility] [place] - [address] [place] [address] Laboratory Report Ordering Provider Test Date Status TONY KRUEGER 12/01/2023 10:39:43 Final Normal: <30 mg/g creatinine< br/>High: 30-300 mg/g creatinine
Very High: >300 mg/g creatinine
Nephrotic: >2200 mg/g creatinine Observation Date Value Abnormality Reference (Units ) Status Albumin, Urine 12/01/2023 10:39:43 3.28 (mg/dL) Final Creatinine, Urine 12/01/2023 10:39:43 152 (mg/dL) Final Albumin/Creatinine [Mass Ratio] in Urine 12/01/2023 10:39:43 22 <30 (mg/g Creat) Final Performing Location [facility] [place] - [address] [place] [address]
--- OUTSIDE RECORDS SUMMARY | 2023-12-08 20:02 | External Medical Summary ---
Author Name Unknown Address Unknown Organization K09:[facility] [address] [place] [address] Laboratory Report Ordering Provider Test Date Status TONY KRUEGER 12/01/2023 09:02:00 Final Observation Date Value Abnormality Reference (Units ) Status SYNC LEUKOCYTES IN BLOOD BY AUTOMATED COUNT 12/01/2023 09:02:00 7.09 4.00-10.80 (K/uL) Final Neutrophils/100 leukocytes in Blood by Manual count 12/01/2023 09:02:00 77.0 Above high normal 40.0-75.0 (%) Final Lymphocytes/100 leukocytes in Blood by Manual count 12/01/2023 09:02:00 15.0 Below low normal 18.0-42.0 (%) Final Monocytes/100 leukocytes in Blood by Manual count 12/01/2023 09:02:00 4.0 1.0-11.0 (%) Final Eosinophils/100 leukocytes in Blood by Manual count 12/01/2023 09:02:00 2.0 0.0-6.0 (%) Final Metamyelocytes/100 leukocytes in Blood by Manual count 12/01/2023 09:02:00 2.0 Above high normal <=0.0 (%) Final Neutrophils [#/volume] in Blood by Manual count 12/01/2023 09:02:00 5.46 1.80-7.70 (K/uL) Final Lymphocytes [#/volume] in Blood by Manual count 12/01/2023 09:02:00 1.06 1.00-4.80 (K/uL) Final Monocytes [#/volume] in Blood by Manual count 12/01/2023 09:02:00 0.28 0.00-1.10 (K/uL) Final Eosinophils [#/volume] in Blood by Manual count 12/01/2023 09:02:00 0.14 0.00-0.70 (K/uL) Final Metamyelocytes [#/volume] in Blood by Manual count 12/01/2023 09:02:00 0.14 Above high normal <=0.00 (K/uL) Final Nucleated erythrocytes/100 leukocytes [Ratio] in Blood by Automated count 12/01/2023 09:02:00 Final Variant lymphocytes [Presence] in Blood by Light microscopy 12/01/2023 09:02:00 Present Abnormal None Seen Final Performing Location [facility] [address] [place] [address]
--- OUTSIDE RECORDS SUMMARY | 2023-12-08 20:02 | External Medical Summary | Summary of Care ---
Author Name Unknown Organization [facility] Address [address] [place] [address] Phone [phone] Care Team Providers Care Fiber Designer Name Role Phone Ivan Martinez MD Primary Care Provide r Reason for Visit * Reason Comments Medication Administration Nulojix Procedure Labs from port * Episode Based Medications (Routine) - Pending Review Specialty Diagnoses / Procedures Referred By Bob t Referred To Contact Diagnoses Kidney replaced by transplant Procedures [place] BELATACEPT INJECTION Elder Rooney, DNP [address] [place] [address] Anc Hem/Onc Y[facility] Davis DEPT CLOSED - 08/16/23 [address] [place] [phone] Referral ID Status Reason Start Date Expiration Date V isits Requested Visits Authorized [id number] Pending Review 10/05/2023 10/05/2024 99 99 Encounter Details Date Type Department Care Team (Latest Contact Info) Description 12/01/2023 9:00 AM EST Hem/Onc Treatment Hematology/Oncolog y Treatment, [place] [address] [place] [phone] Susan, Chair 10 Hem Onc [address] [place] [address] Kidney replaced by transplant*; Need for prophylactic [...] hemoglobin A1c goal of less than 7.0% ([facility]) Take 1 Tablet by mouth in the [...] 0.4 mL 11 02/16/2023 Active Dexcom G6 Alligator Trapper Device Use as directed 1 Each 0 02/16/2023 Active Dexcom G6 Sensor Apply a new sensor every 10 days 9 Each 3 02/16/2023 Active Dexcom G6 Transmitter Use with [employer] continuous glucose sensor as directed by documentation manager 1 Each 4 02/16/2023 Active Tamsulosin HCl [...] gone 4 Tablet 0 10/25/2023 Active Nystatin 501425 UNIT/GM External Powder (Nystop)Indication s:Candidal skin infection [...] 10:30 AM EDT Office Visit Transplant Clinic, [address] [address] Elder Rooney [facility] [address] [place] [address] 12/28/2023 3:40 PM EDT Office Visit [facility] Medicine [address] [place] [phone] Ivan Martinez MD [address] [place] [address] [place] [address] 12/29/2023 10:45 AM EDT Hem/Onc Treatment Hematology/Oncology Treatment, [place] [address] [facility] [place] [phone] Susan, Chair 11 Hem Onc [address] [place] [id number] 01/19/2024 2:30 PM EDT Office Visit Endocrinology, [place] [address] [place] [address] Prema, Pharmacist Endocrinology [address] [place] [address] 03/20/2024 7:30 AM EDT Office Visit Endocrinology, [place] [address] [place] [address] Codi Cam PA-C [address] [place] [address] Pending Results Name Type Priority Associated Diagnoses [...] this encounter Medical Devices Implanted Type Area Division Leader Device Identifier Shelf Expiration Date Model / Serial / Lot Port Implant W/8f Poly Cath - [id number] Implanted:Qty : 1 on 05/12/2021 by Dong Ackerman, at OR [facility] Right: Chest CR BARD : PERIPHERAL VASCULAR [id number] 08/02/2021 [id number] / / [id number] documented as of this encounter Procedures Procedure [...] 10.80 K/uL 12/01/2023 9:41 AM EST [facility] 56-02 Neutrophils % 77.0(H) 40.0 - 75.0 % 12/01/2023 9:41 AM EST [facility] 56-02 Lymphocytes % 15.0(L) 18.0 - 42.0 % 12/01/2023 9:41 AM EST [facility] 56-02 Monocytes % 4.0 1.0 - 11.0 % 12/01/2023 9:41 AM EST [facility] 56-02 Eosinophils % 2.0 0.0 - 6.0 % 12/01/2023 9:41 AM [facility] 56-02 Metamyelocytes % 2.0(H) <=0.0 % 12/01/19 9:41 AM EST [facility] 56-02 Absolute Neutrophils 5.46 1.80 - 7.70 K/uL 12/01/2023 9:41 AM EST [facility] 56-02 Absolute Lymphocytes 1.06 1.00 - 4.80 K/uL 12/01/2023 9:41 AM EST [facility] 56-02 Absolute Monocytes 0.28 0.00 - 1.10 K/uL 12/01/2023 9:41 AM EST [facility] 56-02 Absolute Eosinophils 0.14 0.00 - 0.70 K/uL 12/01/2023 9:41 AM EST [facility] 56-02 Absolute Metamyelocytes 0.14(H) <=0.00 K/uL 12/01/2023 9:41 AM EST [facility] 56-02 nRBCs 12/01/2023 9:41 AM EST [facility] 56-02 Reactive Lymphocytes Present(A ) None Seen 12/01/2023 9:41 AM EST [facility] 56-02 Blood Blood sample taken from central line / Unknown Central Line / Unknown 12/01/2023 9:02 AM EST 12/01/2023 9:21 AM EST Elder Rooney DNP LAB BLOOD [facility] 56 [address] [place] [address] * DIFFERENTIAL, AUTOMATED (12/01/2023 9:02 AM EST) Blood Blood sample taken from central line / Unknown Central Line / Unknown 12/01/2023 9:02 AM EST 12/01/2023 9:21 AM EST Elder Rooney DNP LAB BLOOD ORDERA BLES Performing Organization Address City/[facility]/ZIP Co de Phone Number [facility] [address] [place] [address] * CBC (12/01/2023 9:02 AM EST) WBC 7.09 4.00 - 10.80 K/uL 12/01/2023 9:41 AM [facility] 56 RBC 4.94 4.50 - 5.25 M/uL 12/01/2023 9:41 AM [facility] 56- HGB 14.2 14.0 - 16.8 g/dL 12/01/2023 9:41 AM [facility] 56- HCT 42.9 40.0 - 48.4 % 12/01/2023 9:41 AM [facility] 56- MCV 86.8 82.0 - 99.5 fL 12/01/2023 9:41 AM [facility] 56- MCH 28.7 27.0 - 34.0 pg 12/01/2023 9:41 AM EST [facility] 56- MCHC 33.1 32.0 - 36.0 g/dL 12/01/2023 9:41 AM [facility] 56 RDW 14.1 11.5 - 15.5 % 12/01/2023 9:41 AM [facility] 56 PLT 214 140 - 400 K/uL 12/01/2023 9:41 AM [facility] 56 MPV 10.1 6.6 - 11.1 fL 12/01/2023 9:41 AM [facility] 56 Blood Blood sample taken from central line / Unknown Central Line / Unknown 12/01/2023 9:02 AM EST 12/01/2023 9:21 AM EST Elder Rooney DNP LAB BLOOD ORDERA BLES [facility] [address] [place], [place] [phone] * (ABNORMAL) BASIC METABOLIC PANEL (12/01/2023 9:02 AM EST) BUN 18 6 - 20 mg/dL 12/01/2023 10:05 AM [facility] 56 Creatinine 0.9 0.6 - 1.2 mg/dL 12/01/2023 10:05 AM [facility] 56 Estimated Glomerular Filtration Rate >90 >=60 mL/min 12/01/2023 10:05 AM [facility] 56 Comment:eGFR is calculated b ased on the CKD-EPI 2020 equation Sodium 137 135 - 146 mmol/L 12/01/2023 10:05 AM [facility] 56 Potassium 4.7 3.5 - 5.1 mmol/L 12/01/2023 10:05 AM [facility] 56 Chloride 103 98 - 107 mmol/L 12/01/2023 10:05 AM [facility] 56 CO2 25 22 - 32 mmol/L 12/01/2023 10:05 AM [facility] 56 Anion Gap 9 7 - 15 mmol/L 12/01/2023 10:05 AM [facility] 56 Glucose 180(H) 70 - 120 mg/dL 12/01/2023 10:05 AM [facility] 56 Calcium 10.2 8.4 - 10.2 mg/dL 12/01/2023 10:05 AM [facility] 56 Blood Blood sample taken from central line / Unknown Central Line / Unknown 12/01/2023 9:02 AM EST 12/01/2023 9:21 AM EST Elder Rooney DNP LAB BLOOD ORDERA BLES [facility] [id number] [place] [address] documented in this encounter Visit [...] an infusion set and a sterile, nonpyrogenic, kef-aklxnqm-yqntrsk filter (pore size of 0.2 to 1.2 [...] the patient have Health Care Power of Language Assistant? No Full Code 09/24/2018 3:28 PM 09/25/2018 5:03 AM Thi s order reflects the patients wishes and were consensually agreed upon. Question Answer Comments Discussion of Advance Directives occurred with: Not Discussed Does the patient have a Living Will? No Does the patient have Health Care Power of Language Assistant? No Care Teams Fiber Designer Relationship Specialty Start Date End Date Ivan Martinez MD [address] [place] [address] [place] [phone] PCP - General Family Medicine 10/19/23 documented as of this encounter
--- OUTSIDE RECORDS SUMMARY | 2023-12-08 20:02 | External Medical Summary ---
Author Name Unknown Address Unknown Organization : Laboratory Report Ordering Provider Test Date Status TONY KRUEGER 12/01/2023 09:02:00 Final Observation Date Value Abnormality Reference (Units ) Status Source 12/01/2023 09:02:00 Whole Blood Final BK virus DNA 12/01/2023 09:02:00 Not Detected (copies/mL) Final BK virus DNA [Log #/volume] (viral load) in Specimen by PAULINE with probe detection 12/01/2023 09:02:00 Not Detected (Log cps/mL) Final Reference Range: Not Detecte d
This test was developed and its analytical performance
characteristics have been determined by [employer]
[place]. It has
not been cleared or approved by the U.S. Food and Drug
Administration. This assay has been validated pursuant
to the CLIA regulations and is used for clinical
purposes.

Test Performed at:
[facility]
[address] [facility]
[place] [address]
Mauricio Soriano M.D., Ph.D.,Director of Laboratories Performing Location
--- OUTSIDE RECORDS SUMMARY | 2023-12-08 20:02 | External Medical Summary | Summary of Care ---
Author Name Unknown Organization [facility] Address [address] [place] [address] Phone [phone] Care Team Providers Care Supplier Relationship Director Name Role Phone Ivan Martinez MD Primary Care Provide r Reason for Visit * Reason Onset Date Comments Advice 12/01/2023 Encounter Details Date Type Department Care Team (Late st Contact Info) Description 12/01/2023 Telephone Endocrinology, [place] [address] [place], [place] [phone] [facility] [address] [place] [address] Advice Allergies Active Allergy Reactions Criticality Noted Date Comments Bee Venom 04/03/2002 Ondansetron Hcl Edema Other 07/12/2017 All over swelling documented as of this encounter (statuses as of 12/02/2023) Medications Medication Sig Dispensed Refills Start Date [...] site prior to Monthly infusion). Apply to [facility] site prior to Monthly infusion 30 g 0 09/14/2021 Active Aspirin EC 81 MG Oral Tablet Delayed ReleaseIndications :Kidney replaced by transplant,Type 2 diabetes mellitus with hemoglobin A1c goal of less than 7.0% (HCC) Take 1 Tablet by mouth in the [...] 0.4 mL 11 02/16/2023 Active Dexcom G6 Gluing Machine Operator Automatic Device Use as directed 1 Each 0 02/16/2023 Active Dexcom G6 Sensor Apply a new sensor every 10 days 9 Each 3 02/16/2023 Active Dexcom G6 Transmitter Use with [employer]bil[employer] continuous glucose sensor as directed by senior dentist 1 Each 4 02/16/2023 Active Tamsulosin HCl [...] gone 4 Tablet 0 10/25/2023 Active Nystatin 158358 UNIT/GM External Powder (Nystop)Indication s:Candidal skin infection Apply topically to affected area 3 times a day. 300 g 1 10/25/2023 Active documented as of this encounter (statuses as of 12/02/2023) Active Problems Problem Noted Date Diagnosed Date [...] as of this encounter (statuses as of 12/02/2023) Resolved Problems Problem Noted Date Diagnosed Date Resolved Date Syncope and collapse 09/12/2019 023 Overview: Possible Cardiac enzymes elevated 09/12/201911/2022 Multiple closed fractures of cervical vertebrae 09/12/2019 11/04/2022 Overview: C3 bilateral pedicle and body fracture, C6-7 spinous process fracture Thoracic spine fracture 09/12/201911/2022 Overview: Age indeterminate T1 and T3 superior endplate fx ESRD (end stage renal disease) on dialysis 09/29/2018 09/29/2018 Pre-transplant evaluation fo r ESRD (end stage renal disease) 11/15/2012 11/04/2022 documented as of this encounter (statuses as of 12/02/2023) Immunizations Name Administration Dates Next Due PPD [...] on file documented as of this encounter Functional Status Functional Status Response [...] No 09/11/2019 documented as of this encounter Miscellaneous Notes * Telephone Encounter - Perla Doty RPh - 12/02/2023 10:02 AM EST Scheduled sooner visit for 12/08/2023. Sent patient a [employer] message to make him aware. * Telephone Encounter - Candis Wang OSA - 12/01/2023 2:35 PM EST Received call from pt he said that he had his training for his pump with the lady from [employer] he was set up to see the pharmacist in December and then that got cancelled and now he is not scheduled till January and he said he needs to be seen sooner then that because he needs to get an updateon his pump settings with the pharmacist he said that when the pump goes into default mode it doesn't want to connect with his CGM and he is on his last sensor and is not sure what supplier he goes through. I'm showing he goes through [employer]. Perla- can you find a sooner appt for the pt?. Emily documented in this encounter Plan of Treatment Upcoming Encounters Date Type Department Care Team (Late st Contact Info) Description 12/08/2023 1:00 PM EST Office Visit Endocrinology, [address] [address] [place], Pharmacist Endocrinology [address] [place] [address] 12/22/2023 10:30 AM EDT Office Visit Transplant Clinic, [address] [address] Elder Rooney, [place] [address] [place] [address] 12/28/2023 3:40 PM EDT Office Visit Family Medicine [address] [phone] Ivan Martinez MD [address] [place] [address] [place] [address] 12/29/2023 10:45 AM EDT Hem/Onc Treatment Hematology/Oncology Treatment, [address] [place] [phone] Susan, Chair 11 [address] [address] 01/19/2024 2:30 PM EDT Office Visit Endocrinology, [place] [address] [place] [address] Prema, Pharmacist Endocrinology [address] [place] [address] 03/20/2024 7:30 AM EDT Office Visit Endocrinology, [place] [address] [place], [place] [phone] Codi Cam PA-C [address] [place], [place] [phone] Health Maintenance Due Date Last Done Comments [...] 05/2023, 02/21/2023, Additional history exists Albumin/Creatinine Ratio 11/30/2024 024, 11/03/2023, 10/05/2023, Additional history exists GFR 11/30/2024 12/01/2023, 10/2023, 10/05/2023, Additional history exists GARDASIL-HPV IMMUNIZATION SERIES Aged Out No longer eligible based on patient's age to complete this topic MENINGOCOCCAL (MENACTRA/MENVEO) Aged Out No longer eligible based on patient's age to complete this topic documented as of this encounter Medical Devices Implanted Type Area Furnace Installer Helper Device Identifier Shelf Expiration Date Model / Serial / Lot Port Implant W/8f Poly Cath - [id number] Implanted:Qty : 1 on 05/12/2021 by Dong Ackerman, DO at OR [facility] Right: Chest CR BARD : PERIPHERAL VASCULAR [id number] 08/02/2021 [id number] / / [id number] documented as of this encounter Advance Directives Latest Code Status [...] the patient have Health Care Power of Estate Conservator? No Full Code 09/24/2018 3:28 PM 09/25/2018 5:03 AM Thi s order reflects the patients wishes and were consensually agreed upon. Question Answer Comments Discussion of Advance Directives occurred with: Not Discussed Does the patient have a Living Will? No Does the patient have Health Care Power of Estate Conservator? No Care Teams Supplier Relationship Director Relationship Specialty Start Date End Date Ivan Martinez MD [address] [place] [address] [place] [address] PCP - General Family Medicine 10/19/23 documented as of this encounter
--- OUTSIDE RECORDS SUMMARY | 2023-12-08 20:02 | External Medical Summary ---
Author Name Unknown Address Unknown Organization K09:[facility] [place] [address] Laboratory Report Ordering Provider Test Date Status TONY KRUEGER 12/01/2023 09:02:00 Final Observation Date Value Abnormality Reference (Units ) Status BUN 12/01/2023 09:02:00 18 6-20 (mg/dL) Final Creatinine 12/01/2023 09:02:00 0.9 0.6-1.2 (mg/dL) Final Glomerular filtration rate/1.73 sq M.predicted [Volume Rate/Area] in Serum, Plasma or Blood by Creatinine-based formula (CKD-EPI) 12/01/2023 09:02:00 >90 >=60 (mL/min) Final eGFR is calculated based on the CKD-EPI 2020 equation SODIUM 12/01/2023 09:02:00 137 135-146 (m mol/L) Final Potassium 12/01/2023 09:02:00 4.7 3.5-5.1 (m mol/L) Final Cl 12/01/2023 09:02:00 103 98-107 (mm ol/L) Final CO2 12/01/2023 09:02:00 25 22-32 (mmo l/L) Final Anion gap 12/01/2023 09:02:00 9 7-15 (mmol /L) Final Glucose 12/01/2023 09:02:00 180 Above high normal 70 -120 (mg/dL) Final Calcium 12/01/2023 09:02:00 10.2 8.4-10.2 ( mg/dL) Final Performing Location [facility] [place] [address]
--- OUTSIDE RECORDS SUMMARY | 2023-12-08 20:02 | External Medical Summary ---
Author Name Unknown Address Unknown Organization K09:[facility] [place] [address] Laboratory Report Ordering Provider Test Date Status TONY KRUEGER 12/01/2023 09:02:00 Final Observation Date Value Abnormality Reference (Units ) Status WBC, Total 12/01/2023 09:02:00 7.09 4.00-10.8 0 (K/uL) Final RBC 12/01/2023 09:02:00 4.94 4.50-5.25 (M/uL) Final Hemoglobin 12/01/2023 09:02:00 14.2 14.0-16.8 (g/dL) Final HCT 12/01/2023 09:02:00 42.9 40.0-48.4 (%) Final MCV 12/01/2023 09:02:00 86.8 82.0-99.5 (fL) Final MCH 12/01/2023 09:02:00 28.7 27.0-34.0 (pg) Final MCHC 12/01/2023 09:02:00 33.1 32.0-36.0 (g/dL) Final RDW 12/01/2023 09:02:00 14.1 11.5-15.5 (%) Final Platelets 12/01/2023 09:02:00 214 140-400 (K /uL) Final MPV 12/01/2023 09:02:00 10.1 6.6-11.1 ( fL) Final Performing Location [facility] [place] [address]
--- OUTSIDE RECORDS SUMMARY | 2023-12-08 20:03 | External Medical Summary ---
Author Name Unknown Address Unknown Organization : Laboratory Report Ordering Provider Test Date Status TONY KRUEGER 11/03/2023 09:08:33 Final Observation Date Value Abnormality Reference (Units ) Status Source 11/03/2023 09:08:33 Whole Blood Final BK virus DNA 11/03/2023 09:08:33 Not Detected (copies/mL) Final BK virus DNA [Log #/volume] (viral load) in Specimen by PAULINE with probe detection 11/03/2023 09:08:33 Not Detected (Log cps/mL) Final Reference Range: Not Detecte d
This test was developed and its analytical performance
characteristics have been determined by [employer]
[place], [place]. It has
not been cleared or approved by the U.S. Food and Drug
Administration. This assay has been validated pursuant
to the CLIA regulations and is used for clinical
purposes.

Test Performed at:
[facility]
[address] [facility]
[place], [place] [address]
Mauricio Soriano M.D., Ph.D.,Director of Laboratories Performing Location
--- OUTSIDE RECORDS SUMMARY | 2023-12-08 20:03 | External Medical Summary | Summary of Care ---
Author Name Unknown Organization [facility] Address [address] [place] [address] Phone [phone] Care Team Providers Care Anatomy Teacher Name Role Phone Ivan Martinez MD Primary Care Provide r Reason for Visit * Reason Comments Infusion Nulojix * Episode Based Medications (Routine) - Authorized Specialty Diagnoses / Procedures Referred By Contac t Referred To Contact Diagnoses Kidney replaced by transplant Procedures [place] BEL[facility] INJECTION Elder Rooney, DNP [address] [place] [address] Anc Hem/Onc Y[facility] Davis DEPT CLOSED - 08/16/23 [address] [place] [address] Referral ID Status Reason Start Date Expiration Date V isits Requested Visits Authorized [id number] Authorized 10/05/2023 10/05/2024 99 99 Encounter Details Date Type Department Care Team (Latest Contact Info) Description 11/03/2023 9:00 AM EST Hem/Onc Treatment Hematology/Oncolog y Treatment, [place] [address] [place] [address] Susan, Chair 10 Hem Onc Scenery [address] [place] [address] Kidney replaced by transplant*; DM type 2, not at goal (HCC); Need for prophylactic immunotherapy Allergies Active Allergy Reactions Criticality Noted Date Comments Bee Venom 04/03/2002 Ondansetron Hcl Edema Other 07/12/2017 All over swelling documented as of this encounter (statuses as of 11/03/2023) Medications Medication Sig Dispensed Refills Start Date [...] hemoglobin A1c goal of less than 7.0% ([facility]) Take 1 Tablet by mouth in the [...] 0.4 mL 11 02/16/2023 Active Dexcom G6 Electronics Research Engineer Device Use as directed 1 Each 0 02/16/2023 Active Dexcom G6 Sensor Apply a new sensor every 10 days 9 Each 3 02/16/2023 Active Dexcom G6 Transmitter Use with Just Above [employer] continuous glucose sensor as directed by b2b sales consultant 1 Each 4 02/16/2023 Active Tamsulosin HCl [...] gone 4 Tablet 0 10/25/2023 Active Nystatin 930486 UNIT/GM External Powder (Nystop)Indication s:Candidal skin infection Apply topically to affected area 3 times a day. 300 g 1 10/25/2023 Active Cephalexin 500 MG Oral CapsuleIndications :Folliculitis Take 1 Capsule by mouth in the morning and 1 Capsule at noon and 1 Capsule in the evening and 1 Capsule before bedtime. Do all this for 10 days. 40 Capsule 0 10/25/2023 11/04/19 24 Active documented as of this encounter (statuses as of 11/03/2023) Active Problems Problem Noted Date Diagnosed Date [...] as of this encounter (statuses as of 11/03/2023) Resolved Problems Problem Noted Date Diagnosed Date [...] as of this encounter (statuses as of 11/03/2023) Immunizations Name Administration Dates Next Due PPD [...] Sign Reading Time Taken Comments Blood Pressure 138/76 11/03/2023 9:31 AM EST Pulse 73 11/03/2023 9:31 AM EST Temperature 36.3 C (97.4 F) 11/03/2023 9:31 AM ES T Respiratory Rate 18 11/03/2023 9:31 AM EST Oxygen Saturation 97% 11/03/2023 9:31 AM EST Inhaled Oxygen Concentration - - [...] as of this encounter Nursing Notes * Candis Barakat LPN - 11/03/2023 9:32 AM EST Pt arrived for Nulojix infusion. Port accessed by AB RN. Pt tolerated well. Labs drawn from port. VSS. No complaints at this time. 1035: Pt tolerated Nulojix infusion well. Port deaccessed by HARPREET RN. Pt to return in 4 weeks. Discharged in stable condition. documented in this encounter Plan of Treatment Upcoming Encounters Date Type Department Care Team (Late st Contact Info) Description 12/01/2023 9:00 AM EST Hem/Onc Treatment [facility] [place] [address] [facility] [address] Susan, Chair 10 Hem Onc [facility] [address] 12/22/2023 9:30 AM EDT Office Visit Endocrinology, [place] [address] [place] [address] [place] [address] [place], Pharmacist Endocrinology [facility] [place] [address] 12/22/2023 10:30 AM EDT Office Visit Transplant Clinic, [place] [address] [place] [address] Elder Rooney, LIBERTAD [address] [place] [address] 12/28/2023 3:40 PM EDT Office Visit Family Medicine [address] [phone] Ivan Martinez MD [address] [place] [address] [place] [address] 12/29/2023 10:45 AM EDT Hem/Onc Treatment Hematology/Oncology Treatment, [place] [address] [place] [address] Susan, Chair 11 Hem Onc Scenery [address] [place] [address] 03/20/2024 7:30 AM EDT Office Visit Endocrinology, [address] [address] Codi Cam PA-C [facility] [place] [address] Pending Results Name Type Priority Associated Diagnoses Date /Time HEMOGLOBIN A1C Lab Routine DM type 2, not at goal (HCC) 11/03/2023 9:08 AM EST ALBUMIN / CREATININE RATIO, URINE Lab STAT Kidney replaced by transplant 11/03/2023 9:08 AM EST BK VIRUS DNA, QUANTITATIVE REAL-TIME PCR, BLOOD Lab STAT Kidney replaced by transplant Need for prophylactic immunotherapy 11/03/2023 9:08 AM EST Health Maintenance Due Date Last Done Comments Hepatitis B (1 of 3 - 3-dose series) 1964 COVID-19 Vaccine (#1) 1969 Depression Screening 1976 DTaP,Tdap,and Td Vaccines (1 - Tdap) 12/24/1983 Zoster Vaccines (1 of 2) 12/24/1983 Cologuard 2009 Colonoscopy 2009 Colorectal Cancer Screening 2009 Fecal Occult Blood Test 2009 Sigmoidoscopy 2009 Pneumococcal Vaccine: Pediatrics (0 to 5 Years) and At-Risk Patients (6 to 64 Years) (2 - PCV) 06/03/2014 06/03/2013 Diabetic Eye Exam 01/05/2017 01/06/2016, , 01/06/2016, Additional history exists Influenza Vaccine (FLU shot) (#1) 2023 08/14/2019, 06/30/2018, 06/14/2018, Additional history exists HbA1c 02/08/2024 08/10/2023, 02/01, 02/16/2023, Additional history exists Diabetic Foot Exam 02/17/2024 02/16/2023, 08/26/2006 Albumin/Creatinine Ratio 10/05/2024 024, 09/07/2023, 08/10/2023, Additional history exists GFR 11/03/2024 11/03/2023, 12/2023, 09/07/2023, Additional history exists GARDASIL-HPV IMMUNIZATION SERIES Aged Out No longer eligible based on patient's age to complete this topic MENINGOCOCCAL (MENACTRA/MENVEO) Aged Out No longer eligible based on patient's age to complete this topic documented as of this encounter Medical Devices Implanted Type Area Insurance Territory Manager Device Identifier Shelf Expiration Date Model / Serial / Lot Port Implant W/8f Poly Cath - [id number] Implanted:Qty : 1 on 05/12/2021 by Dong Ackerman, at OR [facility] Right: Chest CR BARD : PERIPHERAL VASCULAR [id number] 08/02/2021 [id number] / / [id number] documented as of this encounter Procedures Procedure Name Priority Date/Time Associated Diagnosis Comments DIFFERENTIAL, AUTOMATED STAT 11/03/2023 9:08 AM EST Kidney replaced by transplant Need for prophylactic immunotherapy BASIC METABOLIC PANEL STAT 11/03/2023 9:08 AM EST Kidney replaced by transplant Need for prophylactic immunotherapy CBC STAT 11/03/2023 9:08 AM EST Kidney replaced by transplant Need for prophylactic immunotherapy CBC STAT 11/03/2023 9:08 AM EST Kidney replaced by transplant Need for prophylactic immunotherapy DIFFERENTIAL, TECHNOLOGIST REVIEW Routine 11/03/2023 9:08 AM EST Kidney replaced by transplant Need for prophylactic immunotherapy MAGNESIUM STAT 11/03/2023 9:08 AM EST Kidney replaced by transplant documented in this encounter Results * (ABNORMAL) DIFFERENTIAL, TECHNOLOGIST REVIEW (11/03/2023 9:08 AM EST) Pathologist [facility] WBC 5.69 4.00 - 10.80 K/uL 11/03/2023 9:41 AM EST [facility] 56-02 Neutrophils % 43.0 40.0 - 75.0 % 11/03/2023 9:41 AM EST [facility] 56-02 Lymphocytes % 46.0(H) 18.0 - 42.0 % 11/03/2023 9:41 AM EST [facility] 56-02 Monocytes % 6.0 1.0 - 11.0 % 11/03/2023 9:41 AM EST [facility] 56-02 Eosinophils % 3.0 0.0 - 6.0 % 11/03/2023 9:41 AM EST [facility] 56-02 Metamyelocytes % 2.0(H) <=0.0 % 11/03/19 9:41 AM EST [facility] 56-02 Absolute Neutrophils 2.45 1.80 - 7.70 K/uL 11/03/2023 9:41 AM EST [facility] 56-02 Absolute Lymphocytes 2.62 1.00 - 4.80 K/uL 11/03/2023 9:41 AM EST [facility] 56-02 Absolute Monocytes 0.34 0.00 - 1.10 K/uL 11/03/2023 9:41 AM EST [facility] 56-02 Absolute Eosinophils 0.17 0.00 - 0.70 K/uL 11/03/2023 9:41 AM EST [facility] 56-02 Absolute Metamyelocytes 0.11(H) <=0.00 K/uL 11/03/2023 9:41 AM EST [facility] 56-02 nRBCs 11/03/2023 9:41 AM EST [facility] 56- Reactive Lymphocytes Present(A ) None Seen 11/03/2023 9:41 AM EST [facility] 56- Smudge Cells Present(A ) None Seen 11/03/2023 9:41 AM EST [facility] 56- Blood Venous blood specimen / Unknown Central Line / Unknown 11/03/2023 9:08 AM EST 11/03/2023 9:21 AM EST Elder Rooney DNP LAB BLOOD [facility] 56- [address] [place] [address] * DIFFERENTIAL, AUTOMATED (11/03/2023 9:08 AM EST) Blood Venous blood specimen / Unknown Central Line / Unknown 11/03/2023 9:08 AM EST 11/03/2023 9:21 AM EST Elder Rooney DNP LAB BLOOD [facility] 56 [address] [place] [address] * CBC (11/03/2023 9:08 AM EST) WBC 5.69 4.00 - 10.80 K/uL 11/03/2023 9:41 AM EST [facility] 56 RBC 4.94 4.50 - 5.25 M/uL 11/03/2023 9:41 AM EST [facility] 56 HGB 14.2 14.0 - 16.8 g/dL 11/03/2023 9:41 AM EST [facility] 56- HCT 44.4 40.0 - 48.4 % 11/03/2023 9:41 AM EST [facility] 56 MCV 89.9 82.0 - 99.5 fL 11/03/2023 9:41 AM EST [facility] 56 MCH 28.7 27.0 - 34.0 pg 11/03/2023 9:41 AM EST [facility] 56 MCHC 32.0 32.0 - 36.0 g/dL 11/03/2023 9:41 AM [facility] 56 RDW 14.6 11.5 - 15.5 % 11/03/2023 9:41 AM [facility] 56 PLT 269 140 - 400 K/uL 11/03/2023 9:41 AM [facility] 56 MPV 10.5 6.6 - 11.1 fL 11/03/2023 9:41 AM [facility] 56 Blood Venous blood specimen / Unknown Central Line / Unknown 11/03/2023 9:08 AM EST 11/03/2023 9:21 AM EST Elder Rooney DNP LAB BLOOD [facility] [address] [place] [address] * (ABNORMAL) BASIC METABOLIC PANEL (11/03/2023 9:08 AM EST) BUN 21(H) 6 - 20 mg/dL 11/03/2023 9:50 AM [facility] 56 Creatinine 1.1 0.6 - 1.2 mg/dL 11/03/2023 9:50 AM [facility] 56 Estimated Glomerular Filtration Rate 77 >=60 mL/min 11/03/2023 9:50 AM [facility] 56 Comment:eGFR is calculated b ased on the CKD-EPI 2020 equation Sodium 138 135 - 146 mmol/L 11/03/2023 9:50 AM [facility] 56- Potassium 4.4 3.5 - 5.1 mmol/L 11/03/2023 9:50 AM [facility] 56 Chloride 103 98 - 107 mmol/L 11/03/2023 9:50 AM [facility] 56 CO2 24 22 - 32 mmol/L 11/03/2023 9:50 AM [facility] 56 Anion Gap 11 7 - 15 mmol/L 11/03/2023 9:50 AM [facility] 56 Glucose 163(H) 70 - 120 mg/dL 11/03/2023 9:50 AM EST [facility] 56- Calcium 10.1 8.4 - 10.2 mg/dL 11/03/2023 9:50 AM EST [facility] 56-02 Blood Venous blood specimen / Unknown Central Line / Unknown 11/03/2023 9:08 AM EST 11/03/2023 9:21 AM EST Elder Rooney DNP LAB BLOOD [facility] 56- [address] [place] [address] * MAGNESIUM (11/03/2023 9:08 AM EST) Magnesium 2.1 1.5 - 2.6 mg/dL 11/03/2023 9:50 AM EST [facility] 56- Blood Venous blood specimen / Unknown Central Line / Unknown 11/03/2023 9:08 AM EST 11/03/2023 9:21 AM EST Elder Rooney DNP LAB BLOOD [facility] 56 [address] [place] [address] documented in this encounter Visit Diagnoses Diagnosis Kidney replaced by transplant- Primary DM type 2, not at goal (HCC) Type II or unspecified type diabetes mellitus without mention of complication, not stated as uncontrolled Need for prophylactic immunotherapy documented in this encounter Administered Medications Active Administered Medications - up to 3 most recent administrations Medication Order MAR Action Action Date Dose Rate Site diphenhydrAMINE (Benadryl) inj 50 mg 50 mg, IV Push, ONCE PRN Other, Hypersensitivity Reaction, Starting on Tue11/03/23 at 0927, Until Tue11/04/23 at 0926, For 24 hours EPINEPHrine 1 MG/ML inj 0.3 mg 0.3 mg, Intramuscular, ONCE PRN Other, Hypersensitivity Reaction or Anaphylaxis, Starting on Nury 11/03/23 at 0927, Until Tue11/04/23 at 0926, For 24 hours hEParin 100 UNIT/ML Lock Flush inj 500 Units 500 Units (5 mL), IV Lock, PRN Other, IV Flush, Starting on Nury 11/03/23 at 0927, Until Tue11/04/23 at 09, For 24 hours, Do not flush if lock, PICC, or central line not in place; IV infusing or unable to flush. Given 11/03/2023 10:33 AM EST 500 Units Hydrocortisone Sod Suc (PF) (Solu-Cortef) inj 100 mg 100 mg, IV Push, ONCE PRN Other, Hypersensitivity Reaction, Starting on Tue11/03/23 at 0927, Until Tue11/04/23 at 09, For 24 hours NSS infusion 500 mL, Intravenous, at 10 mL/hr, CONTINUOUS, Starting on Tue11/03/23 at 1030, Until Tue11/03/23 at 2028 Start Infusion 11/03/2023 9:15 AM EST 500 mL 10 mL/hr sodium chloride 0.9 % flush/inj 10 mL 10 mL, IV Push, PRN Other, IV Flush, Starting on Tue11/03/23 at 09, Until Tue11/04/23 at 09, For 24 hours, Do not flush if lock, PICC, or central line not in place; IV infusing or unable to flush. Given 11/03/2023 10:33 AM EST 10 mL Inactive Administered Medications - up to 3 most recent administrations Medication Order MAR Action Action Date Dose Rate Site Belatacept (Nulojix) 575 mg in NSS 100 mL infusion 575 mg (rounded from 577 mg = 5 mg/kg 115.4 kg Treatment plan Recorded weight), Intravenous, ONCE, 1 dose, On Tue11/03/23 at 1100, Administer over 30 Minutes, Final conc. between 2 and 10 mg/mL Administer over 30 minutes with an infusion set and a sterile, nonpyrogenic, ycd-zkelkuj-nzvygbs filter (pore size of 0.2 to 1.2 micrometer) Start Infusion 11/03/2023 10:02 AM EST 575 mg 200 mL/hr documented [...] the patient have Health Care Power of Gear Hobber? No Full Code 09/24/2018 3:28 PM 09/25/2018 5:03 AM Thi s order reflects the patients wishes and were consensually agreed upon. Question Answer Comments Discussion of Advance Directives occurred with: Not Discussed Does the patient have a Living Will? No Does the patient have Health Care Power of Gear Hobber? No Care Teams Anatomy Teacher Relationship Specialty Start Date End Date Ivan Martinez MD [address] [place] [address] [place] [address] PCP - General Family Medicine 10/19/23 documented as of this encounter
--- OUTSIDE RECORDS SUMMARY | 2023-12-08 20:03 | External Medical Summary | Summary of Care ---
Author Name Unknown Organization [facility] Address [address] [place] [address] Phone [phone] Care Team Providers Care Enterprise Mobility Architect Name Role Phone Rubio Dias MD Primary Care Provider Reason for Visit * Reason Comments Infusion Nulojix * Episode Based Medications (Routine) - Authorized Specialty Diagnoses / Procedures Referred By Bob banerjee Referred To Contact Diagnoses Kidney replaced by transplant Procedures AR BELATACEPT INJECTION Elder Rooney, DNP [address] [place] [address] Anc Hem/Onc Yazan Davis DEPT CLOSED - 08/16/23 [address] [place] [address] Referral ID Status Reason Start Date Expiration Date V isits Requested Visits Authorized [id number] Authorized 10/05/2023 10/05/2024 99 99 Encounter Details Date Type Department Care Team (Latest Contact Info) Description 09/07/2023 9:00 AM EST Hem/Onc Treatment Hematology/Oncolog y Treatment, [place] [address] [place] [address] Susan, Chair 10 Hem Onc [address] [place] [address] Kidney replaced by transplant*; Need for prophylactic immunotherapy Allergies Active Allergy Reactions Criticality Noted Date Comments Bee Venom 04/03/2002 Ondansetron Hcl Edema Other 07/12/2017 All over swelling documented as of this encounter (statuses as of 11/21/2023) Medications Medication Sig Dispensed Refills Start Date End Date Status BD PEN NEEDLE BLUE U/F 32G X 4 MM 5 6 Active EPINEPHrine, anaphylaxis, (EPI-PEN) 0.3 MG/0.3ML SOAJ injection Use as directed. 1 7 Active D5W 5% SOLN 100 mL with [...] and 48 Units before bedtime. 0 Active Lidocaine-Priloca ine 2.5-2.5 % External Kit (Emla) Apply a pea-sized amount over mediport 30 minutes prior to access. Cover with occlusive dressing/plastic wrap until prep 5 g 5 1 Active Lidocaine-Priloca ine 2.5-2.5 % External Cream (Emla)Indications :Kidney replaced by transplant,Need for prophylactic immunotherapy Apply topically to affected area as needed (Mediport site prior to Monthly infusion). Apply to Mediport site prior to Monthly infusion 30 g 0 1 Active Aspirin EC 81 MG Oral Tablet Delayed ReleaseIndication s:Kidney replaced by transplant,Type 2 diabetes mellitus with hemoglobin A1c goal of less than 7.0% ([facility]) Take 1 Tablet by mouth in the morning. 0 Active Lidocaine 5 % External Patch (Lidoderm)Indicat ions:Peripheral neuropathic pain Place 1 Patch topically on the skin daily. 12 hours ON and 12 hours OFF 30 Patch 5 3 Active Gvoke HypoPen 2-Pack 1 MG/0.2ML Subcutaneous Solution Auto-injector (Glucagon) Inject 1.0 mg under the skin of belly/thigh or upper arm as needed for unresponsiveness due to suspected hypoglycemia 0.4 mL 11 3 Active Dexcom G6 Orthopedic Designer Device Use as directed 1 Each 0 3 Active Dexcom G6 Sensor Apply a new sensor every 10 days 9 Each 3 3 Active Dexcom G6 Transmitter Use with dex com continuous glucose sensor as directed by ending machine operator 1 Each 4 3 Active Tamsulosin HCl 0.4 MG Oral Capsule (Flomax) TAKE 1 CAPSULE BY MOUTH EVERY DAY AT NIGHT 90 Capsule 3 3 Active HumaLOG KwikPen 100 UNIT/ML Subcutaneous Solution Pen-injectorIndic ations:Hyperglyce sabra,Type 2 diabetes mellitus with hemoglobin A1c goal of less than 7.0% (HCC) Inject 26 units plus sliding scale three times daily with meals. Needs up to 80 u/d 75 mL 3 3 Active dilTIAZem HCl ER Coated Beads 240 MG Oral Capsule Extended Release 24 Hour (Cardizem CD)Indications:Ch ronic coronary artery disease,HTN, goal below 130/80,S/P primary angioplasty with coronary stent,Paroxysmal atrial fibrillation (HCC) TAKE 1 CAPSULE BY MOUTH EVERY DAY 90 Capsule 3 3 Active Omnipod 5 G6 Pod (Gen 5) Use as directed. Use up to 200 units via insulin pod every 24 hours. 90 Each 3 3 Active Pregabalin 225 MG Oral Capsule (Lyrica) Take 1 Capsule by mouth every evening. 90 Capsule 1 3 Active HumaLOG 100 UNIT/ML Subcutaneous Solution Use to fill Omnipod with 200 units every 2 days. E11.9 and Z96.41 30 mL 11 3 Active Mycophenolate Sodium 180 MG Oral Tablet Delayed Release (Myfortic)Indicat ions:Kidney replaced by transplant,Need for prophylactic immunotherapy Take 360 mg by mouth in the morning and 360 mg before bedtime. 360 Tablet 3 3 10/11/19 24 Discontinu ed(Refill) documented as of this encounter (statuses as of 11/21/2023) Active Problems Problem Noted Date Diagnosed Date Charcot's joint of right foot 02/16/2023 Immunosuppressive [...] as of this encounter (statuses as of 11/21/2023) Resolved Problems Problem Noted Date Diagnosed Date [...] as of this encounter (statuses as of 11/21/2023) Immunizations Name Administration Dates Next Due PPD [...] Sign Reading Time Taken Comments Blood Pressure 109/67 09/07/2023 12:19 PM EST Pulse 80 09/07/2023 12:19 PM EST Temperature 36.3 C (97.3 F) 09/07/2023 12:[address] Respiratory Rate 18 09/07/2023 12:19 PM EST Oxygen Saturation 96% 09/07/2023 12:19 PM EST Inhaled Oxygen Concentration - - Weight [...] Nursing Notes * Candis Barakat LPN - 09/07/2023 12:20 PM EST 0830: Pt arrived for Nulojix infusion. Port accessed by Angle Luque RN. Pt tolerated well. VSS. No complaints at this time. 1020: Pt tolerated Nulojix infusion well. PIV removed intact. Pt to return in 4 weeks. Discharged in stable condition. documented in this encounter Plan of Treatment Upcoming Encounters Date Type Department Care Team (Late st Contact Info) Description 12/01/2023 9:00 AM EST Hem/Onc Treatment Hematology/Oncology Treatment, [address] [place] [phone] Susan, Chair 10 Hem Onc [address] [place] [address] 12/22/2023 10:30 AM EDT [facility] [address] [place] [address] Elder Rooney, [facility] [address] [place] [address] 12/28/2023 3:40 PM EDT Office Visit Family [address] [place] [phone] Ivan Martinez MD [address] [place] [address] [place] [address] 12/29/2023 10:45 AM EDT Hem/Onc Treatment Hematology/Oncology [address], [address] [phone] Susan, Chair 11 Hem Onc [address] [facility] [place] [address] 01/19/2024 2:30 PM EDT Office Visit Endocrinology, [place] [address] [place] [address] Prema, Pharmacist Endocrinology [address] [place] [address] 03/20/2024 7:30 AM EDT Office Visit Endocrinology, [place] [address], [place] [phone] Codi Cam PA-C [address] [place] [address] Health Maintenance Due Date Last Done Comments [...] 024, 10/05/2023, 09/07/2023, Additional history exists GFR 11/03/2024 11/03/2023, 12/2023, 09/07/2023, Additional history exists GARDASIL-HPV IMMUNIZATION SERIES Aged Out No longer eligible based on patient's age to complete this topic MENINGOCOCCAL (MENACTRA/MENVEO) Aged Out No longer eligible based on patient's age to complete this topic documented as of this encounter Medical Devices Implanted Type Area Brusher Device Identifier Shelf Expiration Date Model / Serial / Lot Port Implant W/8f Poly Cath - [id number] Implanted:Qty : 1 on 05/12/2021 by Dong Ackerman, at OR [facility] Right: Chest CR BARD : PERIPHERAL VASCULAR [id number] 08/02/2021 [id number] / / [id number] documented as of this encounter Procedures Procedure Name Priority Date/Time Associated Diagnosis Comments BK VIRUS DNA, QUANTITATIVE REAL-TIME PCR, BLOOD STAT 09/07/2023 8:30 AM EST Kidney replaced by transplant Need for prophylactic immunotherapy DIFFERENTIAL, AUTOMATED STAT 09/07/2023 8:30 AM EST Kidney replaced by transplant Need for prophylactic immunotherapy BASIC METABOLIC PANEL STAT 09/07/2023 8:30 AM EST Kidney replaced by transplant Need for prophylactic immunotherapy CBC STAT 09/07/2023 8:30 AM EST Kidney replaced by transplant Need for prophylactic immunotherapy ALBUMIN / CREATININE RATIO, URINE STAT 09/07/2023 8:30 AM EST Kidney replaced by transplant CBC STAT 09/07/2023 8:30 AM EST Kidney replaced by transplant Need for prophylactic immunotherapy DIFFERENTIAL, TECHNOLOGIST REVIEW Routine 09/07/2023 8:30 AM EST Kidney replaced by transplant Need for prophylactic immunotherapy MAGNESIUM STAT 09/07/2023 8:30 AM EST Kidney replaced by transplant documented in this encounter Results * (ABNORMAL) DIFFERENTIAL, TECHNOLOGIST REVIEW (09/07/2023 8:30 AM EST) Pathologist [facility] nRs 09/07/2023 9:06 AM [facility] 56-02 Reactive Lymphocytes Present(A ) None Seen 09/07/2023 9:06 AM [facility] 56-02 Blood Venous blood specimen / Unknown Central Line / Unknown 09/07/2023 8:30 AM EST 09/07/2023 8:46 AM EST Elder Rooney DNP LAB BLOOD ORDERA BLES [facility] [address] [place], [place] [id number] * (ABNORMAL) DIFFERENTIAL, AUTOMATED (09/07/2023 8:30 AM EST) WBC 5.06 4.00 - 10.80 K/uL 09/07/2023 9:06 AM [facility] 56-02 Neutrophils % 52.2 40.0 - 75.0 % 09/07/2023 9:06 AM [facility] 56-02 Lymphocytes % 29.6 18.0 - 42.0 % 09/07/2023 9:06 AM [facility] 56-02 Monocytes % 9.3 1.0 - 11.0 % 09/07/2023 9:06 AM [facility] 56-02 Eosinophils % 3.4 0.0 - 6.0 % 09/07/2023 9:06 AM [facility] 56-02 Basophils % 5.5(H) 0.0 - 2.0 % 09/07/2023 9:06 AM [facility] 56-02 Absolute Neutrophils 2.64 1.80 - 7.70 K/uL 09/07/2023 9:06 AM [facility] 56-02 Absolute Lymphocytes 1.50 1.00 - 4.80 K/ul 09/07/2023 9:06 AM [facility] 56-02 Absolute Monocytes 0.47 0.00 - 1.10 K/uL 09/07/2023 9:06 AM [facility] 56-02 Absolute Eosinophils 0.17 0.00 - 0.70 K/uL 09/07/2023 9:06 AM [facility] 56-02 Absolute Basophils 0.28(H) 0.00 - 0.20 K/uL 09/07/2023 9:06 AM [facility] 5602 Blood Venous blood specimen / Unknown Central Line / Unknown 09/07/2023 8:30 AM EST 09/07/2023 8:46 AM EST Elder Rooney [facility] LAB BLOOD ORDERA BLES [place] [address] [place] [phone] * (ABNORMAL) CBC (09/07/2023 8:30 AM EST) WBC 5.06 4.00 - 10.80 K/uL 09/07/2023 9:[address] RBC 4.74 4.50 - 5.25 M/uL 09/07/2023 9:06 AM [place] [address] HGB 13.8(L) 14.0 - 16.8 g/dL 09/07/2023 9:[address] HCT 42.4 40.0 - 48.4 % 09/07/2023 9:[address] MCV 89.5 82.0 - 99.5 fL 09/07/2023 9:[address] MCH 29.1 27.0 - 34.0 pg 09/07/2023 9:[address] MCHC 32.5 32.0 - 36.0 g/dL 09/07/2023 9:[address] RDW 14.4 11.5 - 15.5 % 09/07/2023 9:06 AM [facility] 56 PLT 238 140 - 400 K/uL 09/07/2023 9:[address] MPV 10.2 6.6 - 11.1 fL 09/07/2023 9:06 AM [facility] 5602 Blood Venous blood specimen / Unknown Central Line / Unknown 09/07/2023 8:30 AM EST 09/07/2023 8:46 AM EST Elder Rooney [facility] LAB BLOOD ORDERA BLES [facility] 56 [address] [place] [address] * BK VIRUS DNA, QUANTITATIVE REAL-TIME PCR, BLOOD (09/07/2023 8:30 AM EST) Pathologist [facility] Source Whole Blood 09/09/2023 3:18 PM EST [facility] [employer] [facility] BK Virus DNA, QN PCR Not Detected copies/mL 09/09/2023 3:18 PM EST [facility] BK Virus DNA, QN PCR Not Detected Log cps/mL 09/09/2023 3:18 PM EST [facility] [employer] [facility] Comment: Reference Range: Not Detected This test was developed and its analytical performance characteristics have been determined by [facility] [place], [place]. It has not been cleared or approved by the U.S. Food and Drug Administration. This assay has been validated pursuant to the CLIA regulations and is used for clinical purposes. Test Performed at: [facility] [address] Mauricio Soriano M.D., Ph.D.,Director of Laboratories Blood Venous blood specimen / Unknown Central Line / Unknown 09/07/2023 8:30 AM EST 09/07/2023 8:46 AM EST Elder Rooney [facility] LAB BLOOD ORDERA BLES Performing Organization Address City/[facility]/ZIP Co de Phone Number [facility] [address] [place] [address] * (ABNORMAL) BASIC METABOLIC PANEL (09/07/2023 8:30 AM EST) Pathologist [facility] BUN 23(H) 6 - 20 mg/dL 09/07/2023 9:08 AM EST [facility] 56 Creatinine 0.9 0.6 - 1.2 mg/dL 09/07/2023 9:08 AM EST [facility] 56 Estimated Glomerular Filtration Rate >90 >=60 mL/min 09/07/2023 9:08 AM EST [facility] 56 Comment:eGFR is calculated b ased on the CKD-EPI 2020 equation Sodium 138 135 - 146 mmol/L 09/07/2023 9:08 AM EST [facility] 56- Potassium 4.2 3.5 - 5.1 mmol/L 09/07/2023 9:08 AM EST [facility] 56- Chloride 103 98 - 107 mmol/L 09/07/2023 9:08 AM EST [facility] 56- CO2 26 22 - 32 mmol/L 09/07/2023 9:08 AM EST [facility] 56 Anion Gap 9 7 - 15 mmol/L 09/07/2023 9:08 AM EST [facility] 56 Glucose 159(H) 70 - 120 mg/dL 09/07/2023 9:08 AM [facility] 56 Calcium 10.4(H) 8.4 - 10.2 mg/dL 09/07/2023 9:08 AM EST [facility] 56 Blood Venous blood specimen / Unknown Central Line / Unknown 09/07/2023 8:30 AM EST 09/07/2023 8:46 AM EST Elder Rooney DNP LAB BLOOD ORDERA BLES [place] [address] [place] [address] * ALBUMIN / CREATININE RATIO, URINE (09/07/2023 8:30 AM EST) Albumin, Random Urine <1.20 mg/dL 09/07/2023 6:21 PM EST [facility] Creatinine, Random Urine 113 mg/dL 09/07/2023 6:21 PM EST [facility] Albumin / Creatinine Ratio, Urine <11 <30 mg/g Creat 09/07/2023 6:21 PM EST [facility] Urine Urine specimen obtained by clean catch procedure / Unknown Non-blood Collection / Unknown 09/07/2023 8:30 AM EST 09/07/2023 10:32 AM EST Narrative LABORATORY C - 09/07/2023 6:21 PM EST Normal: <30 mg/g creatinine High: 30-300 mg/g creatinine Very High: >300 mg/g creatinine Nephrotic: >2200 mg/g creatinine Elder Clarke Nevin DNP LAB URINE ORDERA BLES [facility] [address] [place] [address] * MAGNESIUM (09/07/2023 8:30 AM EST) Magnesium 1.9 1.5 - 2.6 mg/dL 09/07/2023 9:08 AM EST [facility] 56-02 Blood Venous blood specimen / Unknown Central Line / Unknown 09/07/2023 8:30 AM EST 09/07/2023 8:46 AM EST Elder Clarke Nevin DNP LAB BLOOD ORDERA BLES [facility] 56-[address] [place] [address] documented in this encounter Visit Diagnoses Diagnosis Kidney replaced by transplant- Primary Need for prophylactic immunotherapy documented in this encounter Administered Medications Inactive Administered Medications - up to 3 most recent administrations Medication Order MAR Action Action Date Dose Rate Site Belatacept (Nulojix) 575 mg in NSS 100 mL infusion 575 mg (rounded from 577 mg = 5 mg/kg 115.4 kg Treatment plan Recorded weight), Intravenous, ONCE, 1 dose, On Tue09/07/23 at 1015, Administer over 30 Minutes, Final conc. between 2 and 10 mg/mL Administer over 30 minutes with an infusion set and a sterile, nonpyrogenic, [id number] filter (pore size of 0.2 to 1.2 micrometer) Start Infusion 09/07/2023 9:45 AM EST 575 mg 200 mL/hr hEParin 100 UNIT/ML Lock Flush inj 500 Units 500 Units (5 mL), IV Lock, PRN Other, IV Flush, Starting on Tue09/07/23 at 0832, Until Tue09/07/23 at 1623, For 24 hours, Do not flush if lock, PICC, or central line not in place; IV infusing or unable to flush. Given 09/07/2023 10:22 AM EST 500 Units NSS infusion 500 mL, Intravenous, at 10 mL/hr, CONTINUOUS, Starting on Tue09/07/23 at 0945, Until Tue09/07/23 at 1623 Start Infusion 09/07/2023 8:30 AM EST 500 mL 10 mL/hr sodium chloride 0.9 % flush/inj 10 mL 10 mL, IV Push, PRN Other, IV Flush, Starting on Tue09/07/23 at 0832, Until Tue09/07/23 at 1623, For 24 hours, Do not flush if lock, PICC, or central line not in place; IV infusing or unable to flush. Given 09/07/2023 10:22 AM EST 10 mL documented in this encounter Advance Directives Latest [...] the patient have Health Care Power of Country Printer? No Full Code 09/24/2018 3:28 PM 09/25/2018 5:03 AM Thi s order reflects the patients wishes and were consensually agreed upon. Question Answer Comments Discussion of Advance Directives occurred with: Not Discussed Does the patient have a Living Will? No Does the patient have Health Care Power of Country Printer? No Care Teams Enterprise Mobility Architect Relationship Specialty Start Date End Date Rubio Dias MD [address] [place] [address] [place] [address] PCP - General Family Medicine 12/22/22 10/18/23 documented as of this encounter
--- OUTSIDE RECORDS SUMMARY | 2023-12-08 20:03 | External Medical Summary ---
Author Name Unknown Address Unknown Organization K09:[facility] 56-08 [address] [place] [address] Laboratory Report Ordering Provider Test Date Status TONY KRUEGER 11/03/2023 09:08:33 Final Observation Date Value Abnormality Reference (Units ) Status SYNC LEUKOCYTES IN BLOOD BY AUTOMATED COUNT 11/03/2023 09:08:33 5.69 4.00-10.80 (K/uL) Final Neutrophils/100 leukocytes in Blood by Manual count 11/03/2023 09:08:33 43.0 40.0-75.0 (%) Final Lymphocytes/100 leukocytes in Blood by Manual count 11/03/2023 09:08:33 46.0 Above high normal 18.0-42.0 (%) Final Monocytes/100 leukocytes in Blood by Manual count 11/03/2023 09:08:33 6.0 1.0-11.0 (%) Final Eosinophils/100 leukocytes in Blood by Manual count 11/03/2023 09:08:33 3.0 0.0-6.0 (%) Final Metamyelocytes/100 leukocytes in Blood by Manual count 11/03/2023 09:08:33 2.0 Above high normal <=0.0 (%) Final Neutrophils [#/volume] in Blood by Manual count 11/03/2023 09:08:33 2.45 1.80-7.70 (K/uL) Final Lymphocytes [#/volume] in Blood by Manual count 11/03/2023 09:08:33 2.62 1.00-4.80 (K/uL) Final Monocytes [#/volume] in Blood by Manual count 11/03/2023 09:08:33 0.34 0.00-1.10 (K/uL) Final Eosinophils [#/volume] in Blood by Manual count 11/03/2023 09:08:33 0.17 0.00-0.70 (K/uL) Final Metamyelocytes [#/volume] in Blood by Manual count 11/03/2023 09:08:33 0.11 Above high normal <=0.00 (K/uL) Final Nucleated erythrocytes/100 leukocytes [Ratio] in Blood by Automated count 11/03/2023 09:08:33 Final Variant lymphocytes [Presence] in Blood by Light microscopy 11/03/2023 09:08:33 Present Abnormal None Seen Final Smudge cells [Presence] in Blood by Light microscopy 11/03/2023 09:08:33 Present Abnormal None Seen Final Performing Location [facility]- 02 [address] [place] [address]
--- OUTSIDE RECORDS SUMMARY | 2023-12-08 20:03 | External Medical Summary | Summary of Care ---
Author Name Unknown Organization [facility] Address [address] [place] [address] Phone [phone] Care Team Providers Care Fusing Machine Tender Name Role Phone Rubio Dias MD Primary Care Provider Reason for Visit * Reason Comments Infusion Nulojix * Episode Based Medications (Routine) - Authorized Specialty Diagnoses / Procedures Referred By Contbaudilio t Referred To Contact Diagnoses Kidney replaced by transplant Procedures [place] BELATACEPT INJECTION Elder Rooney, DNP [address] [place] [address] Anc Hem/Onc Y[facility] DEPT CLOSED - 08/16/23 [address] [place] [address] Referral ID Status Reason Start Date Expiration Date V isits Requested Visits Authorized [id number] Authorized 10/05/2023 10/05/2024 99 99 Encounter Details Date Type Department Care Team (Latest Contact Info) Description 09/07/2023 9:00 AM EST Hem/Onc Treatment Hematology/Oncolog y Treatment, [place] [address] [place] [address] Susan, Chair 10 Hem Onc Scenery [address] [place] [address] Kidney replaced by transplant*; Need for [...] 0.4 mL 11 3 Active Dexcom G6 Senior Electronics Engineer Device Use as directed 1 Each 0 3 Active Dexcom G6 Sensor Apply a new sensor every 10 days 9 Each 3 3 Active Dexcom G6 Transmitter Use with [employer] com continuous glucose sensor as directed by clinical office technician 1 Each 4 3 Active Tamsulosin HCl [...] 9:00 AM EST Hem/Onc Treatment Hematology/Oncology Treatment, [address] [address] Susan, Chair 10 Hem On[address] [place] [address] 12/22/2023 10:30 AM EDT [facility] [address] [place] [address] [facility] [address] [place] [address] 12/28/2023 3:40 PM EDT Office Visit Family Medicine [address] [place] [phone] Ivan Martinez MD [address] [place] [address] [place] [address] 12/29/2023 10:45 AM EDT Hem/Onc Treatment Hematology/Oncology Treatment, [address] [address] Susan, Chair 11 Hem Onc Scenery [address] [place] [address] 01/19/2024 2:30 PM EDT Pharmacy Endocrinology, [place] [address] [place] [address] [place], Pharmacist Endocrinology [address] [place] [address] 03/20/2024 7:30 AM EDT Office Visit Endocrinology, [place] [address] [place] [address] Codi Cam PA-C [address], [place] [phone] Health Maintenance Due Date Last Done Comments [...] this encounter Medical Devices Implanted Type Area Licensed Land Surveyor Device Identifier Shelf Expiration Date Model / Serial / Lot Port Implant W/8f Poly Cath - [id number] Implanted:Qty : 1 on 05/12/2021 by Dong Ackerman, at OR [facility] Right: Chest CR BARD : PERIPHERAL VASCULAR [id number] 08/02/2021 [id number] / / [id number] documented as of this encounter Procedures Procedure [...] DIFFERENTIAL, TECHNOLOGIST REVIEW (09/07/2023 8:30 AM EST) nRBCs 09/07/2023 9:06 AM [facility] 56-02 Reactive Lymphocytes Present(A ) None Seen 09/07/2023 9:06 AM [facility] 56-02 Blood Venous blood specimen / Unknown Central Line / Unknown 09/07/2023 8:30 AM EST 09/07/2023 8:46 AM EST Elder Rooney DNP LAB BLOOD ORDERA BLES [facility] [address]- [address] [place], [place] [phone] * (ABNORMAL) DIFFERENTIAL, AUTOMATED (09/07/2023 8:30 AM EST) WBC 5.06 4.00 - 10.80 K/uL 09/07/2023 9:06 AM [facility] 56- Neutrophils % 52.2 40.0 - 75.0 % 09/07/2023 9:06 AM [facility] 56- Lymphocytes % 29.6 18.0 - 42.0 % 09/07/2023 9:06 AM [facility] 56- Monocytes % 9.3 1.0 - 11.0 % 09/07/2023 9:06 AM [facility] 56- Eosinophils % 3.4 0.0 - 6.0 % 09/07/2023 9:06 AM [facility] 56-02 Basophils % 5.5(H) 0.0 - 2.0 % 09/07/2023 9:06 AM [facility] 56- Absolute Neutrophils 2.64 1.80 - 7.70 K/uL 09/07/2023 9:06 AM [facility] 56-02 Absolute Lymphocytes 1.50 1.00 - 4.80 K/ul 09/07/2023 9:06 AM [facility] 56-02 Absolute Monocytes 0.47 0.00 - 1.10 K/uL 09/07/2023 9:06 AM [facility] 56-02 Absolute Eosinophils 0.17 0.00 - 0.70 K/uL 09/07/2023 9:06 AM [facility] 56-02 Absolute Basophils 0.28(H) 0.00 - 0.20 K/uL 09/07/2023 9:06 AM [facility] 56- Blood Venous blood specimen / Unknown Central Line / Unknown 09/07/2023 8:30 AM EST 09/07/2023 8:46 AM EST Elder Rooney DNP LAB BLOOD ORDERA BLES [place] [address] [place] [address] * (ABNORMAL) CBC (09/07/2023 8:30 AM EST) WBC 5.06 4.00 - 10.80 K/uL 09/07/2023 9:[address] RBC 4.74 4.50 - 5.25 M/uL 09/07/2023 9:06 AM [place] [address] HGB 13.8(L) 14.0 - 16.8 g/dL 09/07/2023 9:[address] HCT 42.4 40.0 - 48.4 % 09/07/2023 9:[address] MCV 89.5 82.0 - 99.5 fL 09/07/2023 9:[address] MCH 29.1 27.0 - 34.0 pg 09/07/2023 9:06 AM [facility] 56 MCHC 32.5 32.0 - 36.0 g/dL 09/07/2023 9:[address] RDW 14.4 11.5 - 15.5 % 09/07/2023 9:06 AM [facility] 56 PLT 238 140 - 400 K/uL 09/07/2023 9:06 AM [facility] 56 MPV 10.2 6.6 - 11.1 fL 09/07/2023 9:06 AM [facility] 56 Blood Venous blood specimen / Unknown Central Line / Unknown 09/07/2023 8:30 AM EST 09/07/2023 8:46 AM EST Elder Rooney DNP LAB BLOOD ORDERA BLES [facility] 56 [address] [place] [address] * BK VIRUS DNA, QUANTITATIVE REAL-TIME PCR, BLOOD (09/07/2023 8:30 AM EST) Pathologist [facility] Source Whole Blood 09/09/2023 3:18 PM EST [facility] BK Virus DNA, QN PCR Not Detected copies/mL 09/09/2023 3:18 PM EST [facility] BK Virus DNA, QN PCR Not Detected Log cps/mL 09/09/2023 3:18 PM EST [facility] Comment: Reference Range: Not Detected This test was developed and its analytical performance characteristics have been determined by [facility] [place], [place]. It has not been cleared or approved by the U.S. Food and Drug Administration. This assay has been validated pursuant to the CLIA regulations and is used for clinical purposes. Test Performed at: [facility] [address] Mauricio Soriano M.D., Ph.D.,Director of Laboratories Blood Venous blood specimen / Unknown Central Line / Unknown 09/07/2023 8:30 AM EST 09/07/2023 8:46 AM EST Elder Clarke Nevin [facility] LAB BLOOD ORDERA BLES Performing Organization Address City/[facility]/ZIP Co de Phone Number [facility] [address] [place] [address] * (ABNORMAL) BASIC METABOLIC PANEL (09/07/2023 8:30 AM EST) [facility] BUN 23(H) 6 - 20 mg/dL 09/07/2023 9:08 AM EST [facility] 56 Creatinine 0.9 0.6 - 1.2 mg/dL 09/07/2023 9:08 AM EST [facility] 56 Estimated Glomerular Filtration Rate >90 >=60 mL/min 09/07/2023 9:08 AM EST [facility] 56 Comment:eGFR is calculated b ased on the CKD-EPI 2020 equation Sodium 138 135 - 146 mmol/L 09/07/2023 9:08 AM EST [facility] 56 Potassium 4.2 3.5 - 5.1 mmol/L 09/07/2023 9:08 AM [facility] 56 Chloride 103 98 - 107 mmol/L 09/07/2023 9:08 AM EST [address] CO2 26 22 - 32 mmol/L 09/07/2023 9:08 AM [address] Anion Gap 9 7 - 15 mmol/L 09/07/2023 9:08 AM [address] Glucose 159(H) 70 - 120 mg/dL 09/07/2023 9:[address] Calcium 10.4(H) 8.4 - 10.2 mg/dL 09/07/2023 9:08 AM [facility] 5602 Blood Venous blood specimen / Unknown Central Line / Unknown 09/07/2023 8:30 AM EST 09/07/2023 8:46 AM EST Elder Rooney DNP LAB BLOOD ORDERA BLES [place] [address] [place] [address] * ALBUMIN / CREATININE RATIO, URINE (09/07/2023 8:30 AM EST) Albumin, Random Urine <1.20 mg/dL 09/07/2023 6:21 PM EST [facility] Creatinine, Random Urine 113 mg/dL 09/07/2023 6:21 PM EST [facility] Albumin / Creatinine Ratio, Urine <11 <30 mg/g Creat 09/07/2023 6:21 PM EST [facility] Urine Urine specimen obtained by clean catch procedure / Unknown Non-blood Collection / Unknown 09/07/2023 8:30 AM EST 09/07/2023 10:32 AM EST Narrative [facility] - 09/07/2023 6:21 PM EST Normal: <30 mg/g creatinine High: 30-300 mg/g creatinine Very High: >300 mg/g creatinine Nephrotic: >2200 mg/g creatinine Elder Rooney DNP LAB URINE ORDERA BLES [facility] [address] [place] [address] * MAGNESIUM (09/07/2023 8:30 AM EST) Magnesium 1.9 1.5 - 2.6 mg/dL 09/07/2023 9:08 AM EST [facility] 56-02 Blood Venous blood specimen / Unknown Central Line / Unknown 09/07/2023 8:30 AM EST 09/07/2023 8:46 AM EST Elder Clarke Nevin [facility] LAB BLOOD ORDERA BLES [facility] 56-[address] [place] [address] documented in this encounter Visit Diagnoses Diagnosis [...] an infusion set and a sterile, nonpyrogenic, jby-lrlxiji-dbvxffp filter (pore size of 0.2 to 1.2 [...] the patient have Health Care Power of Renal Dialysis Rn? No Full Code 09/24/2018 3:28 PM 09/25/2018 5:03 AM Thi s order reflects the patients wishes and were consensually agreed upon. Question Answer Comments Discussion of Advance Directives occurred with: Not Discussed Does the patient have a Living Will? No Does the patient have Health Care Power of Renal Dialysis Rn? No Care Teams Fusing Machine Tender Relationship Specialty Start Date End Date Rubio Dias MD [address] [place] [address] [place] [address] PCP - General Family Medicine 12/22/22 10/18/23 documented as of this encounter
--- OUTSIDE RECORDS SUMMARY | 2023-12-08 20:03 | External Medical Summary | Summary of Care ---
Author Name Unknown Organization [facility] Address [address] [place] [address] Phone [phone] Care Team Providers Care Taxicab Coordinator Name Role Phone Ivan Martinez MD Primary Care Provide r Reason for Visit * Reason Onset Date Comments Appointment 10/27/2023 R/s 11/02 Encounter Details Date Type Department Care Team (Late st Contact Info) Description 10/27/2023 Telephone Transplant Clinic, [place] [address] [place] [address] Elder Rooney, [facility] [address] [place] [address] Appointment (R/s 11/02) Allergies Active Allergy Reactions Criticality Noted Date Comments Bee Venom 04/03/2002 Ondansetron Hcl Edema Other 07/12/2017 All over swelling documented as of this encounter (statuses as of 10/27/2023) Medications Medication Sig Dispensed Refills Start Date [...] site prior to Monthly infusion). Apply to [facility] site prior to Monthly infusion [...] 0.4 mL 11 02/16/2023 Active Dexcom G6 Television Installer Helper Device Use as directed 1 Each 0 02/16/2023 Active Dexcom G6 Sensor Apply a new sensor every 10 days 9 Each 3 02/16/2023 Active Dexcom G6 Transmitter Use with dex [facility] continuous glucose sensor as directed by laundry route driver 1 Each 4 02/16/2023 Active Tamsulosin HCl [...] gone 4 Tablet 0 10/25/2023 Active Nystatin 124102 UNIT/GM External Powder (Nystop)Indication s:Candidal skin infection [...] as of this encounter (statuses as of 10/27/2023) Active Problems Problem Noted Date Diagnosed Date [...] as of this encounter (statuses as of 10/27/2023) Resolved Problems Problem Noted Date Diagnosed Date [...] as of this encounter (statuses as of 10/27/2023) Immunizations Name Administration Dates Next Due PPD [...] encounter Miscellaneous Notes * Telephone Encounter - Enrrique Wilosn OSA - 10/27/2023 2:28 PM EST Ramesh called about r/s his Scooby appt next week. Wanted to r/s to 12/21 with endocrinology due to long travel distance. 11/02/23 will need to be cx once r/s can be decided Please advise if he can see someone else or be added on Thanks MATT Newell documented in this encounter Plan of Treatment Upcoming Encounters Date Type Department Care Team (Late st Contact Info) Description 11/02/2023 8:00 AM EST Office Visit Transplant Clinic, [place] [address] [place], [place] [phone] Elder Rooney DNP [address] [place], [place] [phone] 11/03/2023 9:00 AM EST Hem/Onc Treatment Hematology/Oncology Treatment, [address] [address] Susan, Chair 10 Hem On[address] [address] 12/22/2023 9:30 AM EDT Office Visit Endocrinology, [address] [phone] [place], Pharmacist Endocrinology [address] [place] [phone] 12/28/2023 3:40 PM EDT Office Visit Family Medicine [address] [phone] Ivan Martinez MD [address] [place] [address] [place] [address] 03/20/2024 7:30 AM EDT Office Visit Endocrinology, [address] [phone] Codi Cam PA-C [facility] [address] [place], [place] [phone] Health Maintenance Due Date Last Done Comments [...] 024, 09/07/2023, 08/10/2023, Additional history exists GFR 10/05/2024 10/05/2023, 1203/2023, 08/10/2023, Additional history exists GARDASIL-HPV IMMUNIZATION SERIES Aged Out No longer eligible based on patient's age to complete this topic MENINGOCOCCAL (MENACTRA/MENVEO) Aged Out No longer eligible based on patient's age to complete this topic documented as of this encounter Medical Devices Implanted Type Area Concrete Plant Laborer Device Identifier Shelf Expiration Date Model / Serial / Lot Port Implant W/8f Poly Cath - [id number] Implanted:Qty : 1 on 05/12/2021 by Dong Ackerman, at OR [facility] Right: Chest CR BARD : PERIPHERAL VASCULAR [id number] 08/02/2021 [id number] / / [id number] documented as of this encounter Advance Directives [...] the patient have Health Care Power of Dampener Operator? No Full Code 09/24/2018 3:28 PM 09/25/2018 5:03 AM Thi s order reflects the patients wishes and were consensually agreed upon. Question Answer Comments Discussion of Advance Directives occurred with: Not Discussed Does the patient have a Living Will? No Does the patient have Health Care Power of Dampener Operator? No Care Teams Taxicab Coordinator Relationship Specialty Start Date End Date Ivan Martinez MD [address] [place] [address] [place] [address] PCP - General Family Medicine 10/19/23 documented as of this encounter
--- OUTSIDE RECORDS SUMMARY | 2023-12-08 20:03 | External Medical Summary ---
Author Name Unknown Address Unknown Organization K09:[facility] [place] [address] Laboratory Report Ordering Provider Test Date Status TONY KRUEGER 11/03/2023 09:08:33 Final Observation Date Value Abnormality Reference (Units ) Status WBC, Total 11/03/2023 09:08:33 5.69 4.00-10.8 0 (K/uL) Final RBC 11/03/2023 09:08:33 4.94 4.50-5.25 (M/uL) Final Hemoglobin 11/03/2023 09:08:33 14.2 14.0-16.8 (g/dL) Final HCT 11/03/2023 09:08:33 44.4 40.0-48.4 (%) Final MCV 11/03/2023 09:08:33 89.9 82.0-99.5 (fL) Final MCH 11/03/2023 09:08:33 28.7 27.0-34.0 (pg) Final MCHC 11/03/2023 09:08:33 32.0 32.0-36.0 (g/dL) Final RDW 11/03/2023 09:08:33 14.6 11.5-15.5 (%) Final Platelets 11/03/2023 09:08:33 269 140-400 (K /uL) Final MPV 11/03/2023 09:08:33 10.5 6.6-11.1 ( fL) Final Performing Location [facility] [place] [address]
--- OUTSIDE RECORDS SUMMARY | 2023-12-08 20:03 | External Medical Summary ---
Author Name Unknown Address Unknown Organization K01:[facility] [place] [facility] [address] [address] Laboratory Report Ordering Provider Test Date Status TONY KRUEGER 11/03/2023 09:08:33 Final Normal: <30 mg/g creatinine< br/>High: 30-300 mg/g creatinine
Very High: >300 mg/g creatinine
Nephrotic: >2200 mg/g creatinine Observation Date Value Abnormality Reference (Units ) Status Albumin, Urine 11/03/2023 09:08:33 <1.20 (mg/dL) Final Creatinine, Urine 11/03/2023 09:08:33 126 (mg/dL) Final Albumin/Creatinine [Mass Ratio] in Urine 11/03/2023 09:08:33 <10 <30 (mg/g Creat) Final Performing Location [facility] [place] [address] [place] [address]
--- OUTSIDE RECORDS SUMMARY | 2023-12-08 20:03 | External Medical Summary ---
Author Name Unknown Address Unknown Organization K01:[facility] [place] - [address] [facility] [place] [address] Laboratory Report Ordering Provider Test Date Status TONY KRUEGER 11/03/2023 09:08:33 Final Observation Date Value Abnormality Reference (Units ) Status Triglyceride 11/03/2023 09:08:33 115 <=174 ( mg/dL) Final Triglyceride Reference Range s (mg/dL):
<150 Acceptable
150-174 Borderline high
175-499 High
>=500 Very high Cholesterol 11/03/2023 09:08:33 89 <200 (mg /dL) Final Total Cholesterol Reference Ranges (mg/dL):
<200 Desirable
200-239 Borderline high
>=240 High HDL 11/03/2023 09:08:33 32 Below low normal >39 (mg/dL) Final HDL Cholesterol Reference Ra nges (mg/dL):
>=60 High (Desirable)
<50 Low (Undesirable) For Females
<40 Low (Undesirable) For Males NON-HDL CHOLESTEROL 11/03/2023 09:08:33 57 <=159 (mg/dL) Final Non-HDL Cholesterol Referenc e Range (mg/dL):
<100 Target level for high risk ASCVD patient
<130 Optimal for general population
130-159 Near optimal for general population
160-189 Borderline High
190-219 High
>=220 Very High LDL, (calculated) 11/03/2023 09:08:33 34 <= 129 (mg/dL) Final LDL Cholesterol Reference Ra nges (mg/dL):
<70 Target level for high risk ASCVD patient
<100 Optimal for general population
100-129 Near optimal for general population
130-159 Borderline high
160-189 High
>=190 Very high Performing Location [facility] [place] - [address] [facility] [address]
--- OUTSIDE RECORDS SUMMARY | 2023-12-08 20:03 | External Medical Summary | Summary of Care ---
Author Name Unknown Organization [facility] Address [address] [place] [address] Phone [phone] Care Team Providers Care Physical Therapy Professor Name Role Phone Ivan Martinez MD Primary Care Provide r Encounter Details Date Type Department Care Team (Latest Contact Info) Description 11/03/2023 [facility] [address] [place], [place] [phone] Elder Rooney, [facility] [address] [place] [address] Immunosuppressive management encounter following kidney transplant*; Kidney replaced by transplant Allergies Active Allergy Reactions Criticality Noted Date [...] site prior to Monthly infusion). Apply to [facility] site prior to Monthly infusion 30 g [...] 0.4 mL 11 02/16/2023 Active Dexcom G6 Edge Baster Device Use as directed 1 Each 0 02/16/2023 Active Dexcom G6 Sensor Apply a new sensor every 10 days 9 Each 3 02/16/2023 Active Dexcom G6 Transmitter Use with dex com continuous glucose sensor as directed by house piping inspector 1 Each 4 02/16/2023 Active Tamsulosin HCl [...] gone 4 Tablet 0 10/25/2023 Active Nystatin 470923 UNIT/GM External Powder (Nystop)Indication s:Candidal skin infection [...] No 09/11/2019 documented as of this encounter Plan of Treatment Upcoming Encounters Date Type Department Care Team (Late st Contact Info) Description 12/01/2023 9:00 AM EST Hem/Onc Treatment Hematology/Oncology Treatment, [place] [address] [place] [address] [place], Chair 10 Hem Onc Scenery [address] [place] [address] 12/22/2023 9:30 AM EDT Office Visit Endocrinology, [place] [address] [place] [address] [place], Pharmacist Endocrinology [address] [place], [place] [phone] 12/22/2023 10:30 AM EDT Office Visit Transplant Clinic, [place] [address] [place], [place] [phone] Elder Rooney, [facility] [address] [place], [place] [phone] 12/28/2023 3:40 PM EDT Office Visit Family Medicine [address] [phone] Ivan Martinez MD [address] [place] [address] [place] [address] 12/29/2023 10:45 AM EDT Hem/Onc Treatment Hematology/Oncology Treatment, [address] [address] [place], Chair [address] [address] 03/20/2024 7:30 AM EDT Office Visit Endocrinology, [place] [address] [place], [place] [phone] Codi Cam PA-C [address] [place], [place] [phone] Pending Results Name Type Priority Associated Diagnoses Date /Time LIPID PANEL WITH DIRECT LDL IF TG IS HIGH Lab STAT 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 11/03/2023 9:08 AM EST Scheduled Orders Name Type Priority Associated Diagnoses Orde r Schedule LIPID PANEL WITH DIRECT LDL IF TG IS HIGH Lab STAT 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 Expected: 11/03/2023, Expires: 11/03/2024 Health Maintenance Due Date Last Done Comments [...] 05/2023, 02/21/2023, Additional history exists Albumin/Creatinine Ratio 10/05/2024 024, 09/07/2023, 08/10/2023, Additional history exists GFR 11/03/2024 11/03/2023, 12/2023, 09/07/2023, Additional history exists GARDASIL-HPV IMMUNIZATION SERIES Aged Out No longer eligible based on patient's age to complete this topic MENINGOCOCCAL (MENACTRA/MENVEO) Aged Out No longer eligible based on patient's age to complete this topic documented as of this encounter Medical Devices Implanted Type Area Director Case Management Device Identifier Shelf Expiration Date Model / Serial / Lot Port Implant W/8f Poly Cath - [id number] Implanted:Qty : 1 on 05/12/2021 by Dong Ackerman DO at OR [facility] Right: Chest CR BARD : PERIPHERAL VASCULAR [id number] 08/02/2021 [id number] / / [id number] documented as of this encounter Visit Diagnoses Diagnosis Immunosuppressive management encounter following kidney transplant- Primary Encounter for long-term (current) use of other medications Kidney replaced by transplant documented in this encounter Advance Directives Latest [...] the patient have Health Care Power of Morals Squad Police Officer? No Full Code 09/24/2018 3:28 PM 09/25/2018 5:03 AM Thi s order reflects the patients wishes and were consensually agreed upon. Question Answer Comments Discussion of Advance Directives occurred with: Not Discussed Does the patient have a Living Will? No Does the patient have Health Care Power of Morals Squad Police Officer? No Care Teams Physical Therapy Professor Relationship Specialty Start Date End Date Ivan Martinez MD [address] [place] [address] [place] [address] PCP - General Family Medicine 10/19/23 documented as of this encounter
--- OUTSIDE RECORDS SUMMARY | 2023-12-08 20:03 | External Medical Summary | Summary of Care ---
Author Name Unknown Organization [facility] Address [address] [place] [address] Phone [phone] Care Team Providers Care Protection Mgr Name Role Phone Rubio Dias MD Primary Care Provider Reason for Visit * Reason Comments Infusion Nulojix * Episode Based Medications (Routine) - Authorized Specialty Diagnoses / Procedures Referred By Bob banerjee Referred To Contact Diagnoses Kidney replaced by transplant Procedures OR [facility] INJECTION Elder Rooney, DNP [address] [place] [address] Anc Hem/Onc Yazan Davis DEPT CLOSED - 08/16/23 [address] [place] [phone] Referral ID Status Reason Start Date Expiration Date V isits Requested Visits Authorized [id number] Authorized 10/05/2023 10/05/2024 99 99 Encounter Details Date Type Department Care Team (Latest Contact Info) Description 09/07/2023 9:00 AM EST Hem/Onc Treatment Hematology/Oncolog y Treatment, [place] [address] [place] [address] Susan, Chair 10 Hem Onc [address] [place] [address] Kidney replaced by transplant*; Need for prophylactic immunotherapy Allergies Active Allergy Reactions Criticality Noted Date Comments Bee Venom 04/03/2002 Ondansetron Hcl Edema Other 07/12/2017 All over swelling documented as of this encounter (statuses as of 11/22/2023) Medications Medication Sig Dispensed Refills Start Date [...] goal of less than 7.0% ([facility]) Take 1 Tablet by mouth in [...] 0.4 mL 11 3 Active Dexcom G6 House Mover Helper Device Use as directed 1 Each 0 3 Active Dexcom G6 Sensor Apply a new sensor every 10 days 9 Each 3 3 Active Dexcom G6 Transmitter Use with dex com continuous glucose sensor as directed by sports marketing specialist 1 Each 4 3 Active Tamsulosin HCl [...] as of this encounter (statuses as of 11/22/2023) Active Problems Problem Noted Date Diagnosed Date [...] as of this encounter (statuses as of 11/22/2023) Resolved Problems Problem Noted Date Diagnosed Date [...] as of this encounter (statuses as of 11/22/2023) Immunizations Name Administration Dates Next Due PPD [...] 9:00 AM EST Hem/Onc Treatment Hematology/Oncology Treatment, [address] [place] [phone] Susan, Chair [address] Hem [address] [place] [address] 12/22/2023 10:30 AM EDT [facility] [address] [place] [address] Elder Rooney, [facility] [address] [place] [address] 12/28/2023 3:40 PM EDT Office Visit Family [address] [place] [phone] Ivan Martinez MD [address] [place] [address] [place] [address] 12/29/2023 10:45 AM EDT Hem/Onc Treatment Hematology/[address], [address] [phone] Susan, Chair 11 Hem Onc [address] [place] [address] 01/19/2024 2:30 PM EDT Office Visit Endocrinology, [place] [address] [place] [address] Pre[place], Pharmacist Endocrinology [address] [place] [address] 03/20/2024 7:30 AM EDT Office Visit Endocrinology, [place] [address] [place], [place] [phone] Codi Cam PA-C [address] [place] [address] Health Maintenance Due Date Last [...] this encounter Medical Devices Implanted Type Area Hand Molder And Caster Device Identifier Shelf Expiration Date Model / Serial / Lot Port Implant W/8f Poly Cath - [id number] Implanted:Qty : 1 on 05/12/2021 by Dong Ackerman, at OR [facility] Right: Chest CR BARD : PERIPHERAL VASCULAR [id number] 08/02/2021 [id number] / / [id number] documented as of this encounter Procedures Procedure [...] The Chronically Ill nRs 09/07/2023 9:06 AM [facility] 56-02 Reactive Lymphocytes Present(A ) None Seen 09/07/2023 9:06 AM [facility] 56-02 Blood Venous blood specimen / Unknown Central Line / Unknown 09/07/2023 8:30 AM EST 09/07/2023 8:46 AM EST Elder Rooney DNP LAB BLOOD ORDERA BLES [facility] 56-[address] [place], [place] [phone] * (ABNORMAL) DIFFERENTIAL, AUTOMATED (09/07/2023 8:30 AM EST) WBC 5.06 4.00 - 10.80 K/uL 09/07/2023 9:06 AM [facility] 56-02 Neutrophils % 52.2 40.0 - 75.0 % 09/07/2023 9:06 AM [facility] 56-02 Lymphocytes % 29.6 18.0 - 42.0 % 09/07/2023 9:06 AM [facility] 56-02 Monocytes % 9.3 1.0 - 11.0 % 09/07/2023 9:06 AM [facility] 56-02 Eosinophils % 3.4 0.0 - 6.0 % 09/07/2023 9:06 AM [facility] 56-02 Basophils % 5.5(H) 0.0 - 2.0 % 09/07/2023 9:06 AM [facility] 56-02 Absolute Neutrophils 2.64 1.80 - 7.70 K/uL 09/07/2023 9:06 AM [facility] 56-02 Absolute Lymphocytes 1.50 1.00 - 4.80 K/ul 09/07/2023 9:06 AM [facility] 56-02 Absolute Monocytes 0.47 0.00 - 1.10 K/uL 09/07/2023 9:06 AM [facility] 56-02 Absolute Eosinophils 0.17 0.00 - 0.70 K/uL 09/07/2023 9:06 AM [facility] 56-02 Absolute Basophils 0.28(H) 0.00 - 0.20 K/uL 09/07/2023 9:06 AM [facility] 5602 Blood Venous blood specimen / Unknown Central Line / Unknown 09/07/2023 8:30 AM EST 09/07/2023 8:46 AM EST Elder Rooney [facility] LAB BLOOD ORDER[place] BLES [place] [address] [place] [phone] * (ABNORMAL) CBC (09/07/2023 8:30 AM EST) WBC 5.06 4.00 - 10.80 K/uL 09/07/2023 9:[address] RBC 4.74 4.50 - 5.25 M/uL 09/07/2023 9:06 AM [place] [address] HGB 13.8(L) 14.0 - 16.8 g/dL 09/07/2023 9:[address] HCT 42.4 40.0 - 48.4 % 09/07/2023 9:[address] MCV 89.5 82.0 - 99.5 fL 09/07/2023 9:[address] MCH 29.1 27.0 - 34.0 pg 09/07/2023 9:[address] MCHC 32.5 32.0 - 36.0 g/dL 09/07/2023 9:[address] RDW 14.4 11.5 - 15.5 % 09/07/2023 9:06 AM [facility] 56 PLT 238 140 - 400 K/uL 09/07/2023 9:[address] MPV 10.2 6.6 - 11.1 fL 09/07/2023 9:06 AM [facility] 5602 Blood Venous blood specimen / Unknown Central Line / Unknown 09/07/2023 8:30 AM EST 09/07/2023 8:46 AM EST Elder Rooney [facility] LAB BLOOD ORDERA BLES [facility] [address] [place] [address] * BK VIRUS DNA, QUANTITATIVE REAL-TIME PCR, BLOOD (09/07/2023 8:30 AM EST) Pathologist [facility] Source Whole Blood 09/09/2023 3:18 PM EST [facility] [employer] [place] BK Virus DNA, QN PCR Not Detected copies/mL 09/09/2023 3:18 PM EST [facility] [place] BK Virus DNA, QN PCR Not Detected Log cps/mL 09/09/2023 3:18 PM EST [facility] [employer] [place] Comment: Reference Range: Not Detected This test was developed and its analytical performance characteristics have been determined by [facility] [place], [place]. It has not been cleared or approved by the U.S. Food and Drug Administration. This assay has been validated pursuant to the CLIA regulations and is used for clinical purposes. Test Performed at: [facility] [address] Mauricio Soriano M.D., Ph.D.,Director of Laboratories Blood Venous blood specimen / Unknown Central Line / Unknown 09/07/2023 8:30 AM EST 09/07/2023 8:46 AM EST Elder Rooney [facility] LAB BLOOD ORDERA BLES Performing Organization Address City/[facility]/ZIP Co de Phone Number [facility] [address] [place] [address] * (ABNORMAL) BASIC METABOLIC PANEL (09/07/2023 8:30 AM EST) Pathologist [facility] BUN 23(H) 6 - 20 mg/dL 09/07/2023 9:08 AM EST [facility] 56 Creatinine 0.9 0.6 - 1.2 mg/dL 09/07/2023 9:08 AM EST [facility] 56 Estimated Glomerular Filtration Rate >90 >=60 mL/min 09/07/2023 9:08 AM EST [facility] 56 Comment:eGFR is calculated b ased on the CKD-EPI 2020 equation Sodium 138 135 - 146 mmol/L 09/07/2023 9:08 AM EST [facility] 56- Potassium 4.2 3.5 - 5.1 mmol/L 09/07/2023 9:08 AM EST [facility] 56- Chloride 103 98 - 107 mmol/L 09/07/2023 9:08 AM EST [facility] 56- CO2 26 22 - 32 mmol/L 09/07/2023 9:08 AM EST [facility] 56 Anion Gap 9 7 - 15 mmol/L 09/07/2023 9:08 AM EST [facility] 56 Glucose 159(H) 70 - 120 mg/dL 09/07/2023 9:08 AM [facility] 56 Calcium 10.4(H) 8.4 - 10.2 mg/dL 09/07/2023 9:08 AM EST [facility] 56 Blood Venous blood specimen / Unknown Central Line / Unknown 09/07/2023 8:30 AM EST 09/07/2023 8:46 AM EST Elder Rooney DNP LAB BLOOD [place] [address] [place] [address] * ALBUMIN / CREATININE RATIO, URINE (09/07/2023 8:30 AM EST) Albumin, Random Urine <1.20 mg/dL 09/07/2023 6:21 PM EST [facility] Creatinine, Random Urine 113 mg/dL 09/07/2023 6:21 PM EST [facility] Albumin / Creatinine Ratio, Urine <11 <30 mg/g Creat 09/07/2023 6:21 PM EST [facility] Urine Urine specimen obtained by clean catch procedure / Unknown Non-blood Collection / Unknown 09/07/2023 8:30 AM EST 09/07/2023 10:32 AM EST Narrative LABORATORY C - 09/07/2023 6:21 PM EST Normal: <30 mg/g creatinine High: 30-300 mg/g creatinine Very High: >300 mg/g creatinine Nephrotic: >2200 mg/g creatinine Elder Clarke Nevin DNP LAB URINE ORDERA BLES [facility] [address] [place] [address] * MAGNESIUM (09/07/2023 8:30 AM EST) Magnesium 1.9 1.5 - 2.6 mg/dL 09/07/2023 9:08 AM EST [facility] 56-02 Blood Venous blood specimen / Unknown Central Line / Unknown 09/07/2023 8:30 AM EST 09/07/2023 8:46 AM EST Elder Clarke Nevin DNP LAB BLOOD ORDERA BLES [facility] 56-[address] [place] [address] documented in this encounter Visit Diagnoses Diagnosis [...] an infusion set and a sterile, nonpyrogenic, kub-mdybeme-yxzomrt filter (pore size of 0.2 to 1.2 [...] the patient have Health Care Power of Spectacle Truer? No Full Code 09/24/2018 3:28 PM 09/25/2018 5:03 AM Thi s order reflects the patients wishes and were consensually agreed upon. Question Answer Comments Discussion of Advance Directives occurred with: Not Discussed Does the patient have a Living Will? No Does the patient have Health Care Power of Spectacle Truer? No Care Teams Protection Mgr Relationship Specialty Start Date End Date Rubio Dias MD [address] [place] [address] [place] [address] PCP - General Family Medicine 12/22/22 10/18/23 documented as of this encounter
--- OUTSIDE RECORDS SUMMARY | 2023-12-08 20:03 | External Medical Summary | Summary of Care ---
Author Name Unknown Organization [facility] Address [address] [place] [address] Phone [phone] Care Team Providers Care Observation Assistant Name Role Phone Ivan Martinez MD Primary Care Provide r Reason for Visit * Reason Onset Date Comments Appointment 10/27/2023 R/s 11/02 Encounter Details Date Type Department Care Team (Late st Contact Info) Description 10/27/2023 Telephone Transplant Clinic, [place] [address] [place] [address] Elder Rooney, [facility] [address] [place] [address] Appointment (R/s 11/02) Allergies Active [...] site prior to Monthly infusion). Apply to [facility] site prior to Monthly infusion 30 g [...] 0.4 mL 11 02/16/2023 Active Dexcom G6 Resource Conservation Manager Device Use as directed 1 Each 0 02/16/2023 Active Dexcom G6 Sensor Apply a new sensor every 10 days 9 Each 3 02/16/2023 Active Dexcom G6 Transmitter Use with dex Octmami continuous glucose sensor as directed by group worker 1 Each 4 02/16/2023 Active Tamsulosin HCl [...] gone 4 Tablet 0 10/25/2023 Active Nystatin 437550 UNIT/GM External Powder (Nystop)Indication s:Candidal skin infection [...] encounter Miscellaneous Notes * Telephone Encounter - Tanya Anders OSA - 10/27/2023 4:24 PM EST Rescheduled to 12/21 with Scooby at 10:30 AM after Endocrine appt. I left a message for patient and sent a [employer] message about the change. * Telephone Encounter - Enrrique Wilson OSA - 10/27/2023 2:28 PM EST Ramesh [...] Care Team (Late st Contact Info) Description 11/03/2023 9:00 AM EST Hem/Onc Treatment Hematology/Oncology Treatment, [place] [address] [place] [address] Susan, Chair [address] [address] 12/22/2023 9:30 AM EDT Office Visit Endocrinology, [place] [address] [place] [address] [place], Pharmacist Endocrinology [facility] [place] [address] 12/22/2023 10:30 AM EDT Office Visit Transplant Clinic, [place] [address] [place] [address] Elder Rooney, [facility] [address] [place] [address] 12/28/2023 3:40 PM EDT Office Visit Family Medicine [address] [phone] Ivan Martinez MD [address] [place] [address] [place] [address] 03/20/2024 7:30 AM EDT Office Visit Endocrinology, [place] [address] [place] [address] Codi Cam PA-C [address] [place] [address] Health Maintenance Due Date Last Done Comments [...] this encounter Medical Devices Implanted Type Area Cableman Device Identifier Shelf Expiration Date Model / Serial / Lot Port Implant W/8f Poly Cath - [id number] Implanted:Qty : 1 on 05/12/2021 by Dong Ackerman, DO at OR [facility] Right: Chest CR BARD : PERIPHERAL VASCULAR [id number] 08/02/2021 [id number] / / [id number] documented as of this encounter Advance Directives [...] the patient have Health Care Power of Dining Room Helper? No Full Code 09/24/2018 3:28 PM 09/25/2018 5:03 AM Thi s order reflects the patients wishes and were consensually agreed upon. Question Answer Comments Discussion of Advance Directives occurred with: Not Discussed Does the patient have a Living Will? No Does the patient have Health Care Power of Dining Room Helper? No Care Teams Observation Assistant Relationship Specialty Start Date End Date Ivan Martinez MD [address] [place] [address] [place] [address] PCP - General Family Medicine 10/19/23 documented as of this encounter
--- OUTSIDE RECORDS SUMMARY | 2023-12-08 20:03 | External Medical Summary ---
Author Name Unknown Address Unknown Organization K09[facility] [place] [address] Laboratory Report Ordering Provider Test Date Status TONY KRUEGER 11/03/2023 09:08:33 Final Observation Date Value Abnormality Reference (Units ) Status Magnesium 11/03/2023 09:08:33 2.1 1.5-2.6 (m g/dL) Final Performing Location [facility] [place] [address]
--- OUTSIDE RECORDS SUMMARY | 2023-12-08 20:03 | External Medical Summary | Summary of Care ---
Author Name Unknown Organization [facility] Address [address] [place] [address] Phone [phone] Care Team Providers Care Mail Officer Name Role Phone Ivan Martinez MD Primary Care Provide r Reason for Visit * Reason Comments Infusion Nulojix * Episode Based Medications (Routine) - Authorized Specialty Diagnoses / Procedures Referred By Contac t Referred To Contact Diagnoses Kidney replaced by transplant Procedures [place] BELATACEPT INJECTION Elder Rooney, DNP [address] [place] [address] Anc Hem/Onc Yazan Davis DEPT CLOSED - 08/16/23 200 [facility] [place] [address] Referral ID Status Reason Start Date Expiration Date V isits Requested Visits Authorized [id number] Authorized 10/05/2023 10/05/2024 99 99 Encounter Details Date Type Department Care Team (Latest Contact Info) Description 11/03/2023 9:00 AM EST Hem/Onc Treatment Hematology/Oncology Treatment, [place] [address] [place] [address] Susan, Chair 10 Hem Onc Scenery 200 [facility] [place] [address] Kidney replaced by transplant*; DM type 2, not at goal (HCC); Need for prophylactic immunotherapy; 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 [facility] 30 g 0 09/14/2021 Active Aspirin EC 81 MG Oral Tablet Delayed ReleaseIndications :Kidney replaced by transplant,Type 2 diabetes mellitus with hemoglobin A1c goal of less than 7.0% ([facility]) Take 1 Tablet by mouth in [...] 0.4 mL 11 02/16/2023 Active Dexcom G6 Painting Machine Operator Device Use as directed 1 Each 0 02/16/2023 Active Dexcom G6 Sensor Apply a new sensor every 10 days 9 Each 3 02/16/2023 Active Dexcom G6 Transmitter Use with [employer] com continuous glucose sensor as directed by underlay stitcher 1 Each 4 02/16/2023 Active Tamsulosin HCl [...] gone 4 Tablet 0 10/25/2023 Active Nystatin 397069 UNIT/GM External Powder (Nystop)Indication s:Candidal skin infection [...] as of this encounter (statuses as of 11/04/2023) Active Problems Problem Noted Date Diagnosed Date [...] as of this encounter (statuses as of 11/04/2023) Resolved Problems Problem Noted Date Diagnosed Date [...] as of this encounter (statuses as of 11/04/2023) Immunizations Name Administration Dates Next Due PPD [...] in stable condition. documented in this encounter Miscellaneous Notes * Result Encounter Note - Codi Cam PA-C - 11/03/2023 1:45 PM EST I have reviewed these results. There are no urgent findings, so they will be addressed at the upcoming appointment in endocrinology. Jessica Cam PA-C [facility] Endocrinology documented in this encounter Plan of Treatment Upcoming Encounters Date Type Department Care Team (Late st Contact Info) Description 12/01/2023 9:00 AM EST Hem/Onc Treatment Hematology/Oncology Treatment, [place] [address] [place] [address] Susan, Chair 10 Hem Onc [address] [place] [address] 12/22/2023 9:30 AM EDT Office Visit Endocrinology, [address] [phone] [place], Pharmacist Endocrinology [address] [place] [phone] 12/22/2023 10:30 AM EDT Office Visit Transplant Clinic, [address] [phone] Elder Rooney, LIBERTAD [facility] [address] [place], [place] [phone] 12/28/2023 3:40 PM EDT Office Visit Family Medicine [address] [phone] Ivan Martinez MD [address] [place] [address], [place] [address] 12/29/2023 10:45 AM EDT Hem/Onc Treatment Hematology/Oncology Treatment, [address] [address] Susan, Chair 11 Hem Onc [address] [place] [address] 03/20/2024 7:30 AM EDT Office Visit Endocrinology, [address] [phone] Codi aCm PA-C [facility] [address] [place], [place] [phone] Pending Results Name Type Priority Associated Diagnoses [...] this encounter Medical Devices Implanted Type Area After School Program Assistant Device Identifier Shelf Expiration Date Model / Serial / Lot Port Implant W/8f Poly Cath - [id number] Implanted:Qty : 1 on 05/12/2021 by Dong Ackerman DO at OR [facility] Right: Chest CR BARD : PERIPHERAL VASCULAR [id number] 08/02/2021 [id number] / / [id number] documented as of this encounter Procedures Procedure Name Priority Date/Time Associated Diagnosis Comments DIFFERENTIAL, AUTOMATED STAT 11/03/2023 9:08 AM EST Kidney replaced by transplant Need for prophylactic immunotherapy LIPID PANEL WITH DIRECT LDL IF TG IS HIGH STAT 11/03/2023 9:08 AM EST 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 HEMOGLOBIN A1C Routine 11/03/2023 9:08 AM EST DM type 2, not at goal (HCC) BASIC METABOLIC PANEL STAT 11/03/2023 9:08 AM EST Kidney replaced by transplant Need for prophylactic immunotherapy CBC STAT 11/03/2023 9:08 AM EST Kidney replaced by transplant Need for prophylactic immunotherapy ALBUMIN / CREATININE RATIO, URINE STAT 11/03/2023 9:08 AM EST Kidney replaced by transplant CBC STAT 11/03/2023 9:08 AM EST Kidney replaced by transplant Need for prophylactic immunotherapy DIFFERENTIAL, TECHNOLOGIST REVIEW Routine 11/03/2023 9:08 AM EST Kidney replaced by transplant Need for prophylactic immunotherapy MAGNESIUM STAT 11/03/2023 9:08 AM EST Kidney replaced by transplant documented in this encounter Results * (ABNORMAL) LIPID PANEL WITH DIRECT LDL IF TG IS HIGH (11/03/2023 9:08 AM EST) Triglycerides 115 <=174 mg/dL 11/04/2023 3:16 AM EST [facility] Comment: Triglyceride Reference Ranges (mg/dL): <150 Acceptable 150-174 Borderline high 175-499 High >=500 Very high Cholesterol 89 <200 mg/dL 11/04/2023 3:16 AM EST [facility] Comment: Total Cholesterol Reference Ranges (mg/dL): <200 Desirable 200-239 Borderline high >=240 High HDL Cholesterol 32(L) >39 mg/dL 3:16 AM EST LAB[facility]ORY [facility] Comment: HDL Cholesterol Reference Ranges (mg/dL): >=60 High (Desirable) <50 Low (Undesirable) For Females <40 Low (Undesirable) For Males Non-HDL Cholesterol 57 <=159 mg/dL 11/04/2023 3:16 AM EST [facility] Comment: Non-HDL Cholesterol Reference Range (mg/dL): <100 Target level for high risk ASCVD patient <130 Optimal for general population 130-159 Near optimal for general population 160-189 Borderline High 190-219 High >=220 Very High LDL Cholesterol 34 <=129 mg/dL 11/04/2023 3:16 AM EST [facility] Comment: LDL Cholesterol Reference Ranges (mg/dL): <70 Target level for high risk ASCVD patient <100 Optimal for general population 100-129 Near optimal for general population 130-159 Borderline high 160-189 High >=190 Very high Blood Venous blood specimen / Unknown Central Line / Unknown 11/03/2023 9:08 AM EST 11/03/2023 9:21 AM EST Elder Rooney [facility] LAB BLOOD ORDERA BLES [facility] [address] [place] [address] * (ABNORMAL) DIFFERENTIAL, TECHNOLOGIST REVIEW (11/03/2023 9:08 AM EST) WBC 5.69 4.00 - 10.80 K/uL 11/03/2023 9:41 AM EST [facility] 56-02 Neutrophils % 43.0 40.0 - 75.0 % 11/03/2023 9:41 AM EST [facility] 56-02 Lymphocytes % 46.0(H) 18.0 - 42.0 % 11/03/2023 9:41 AM EST [facility] 56-02 Monocytes % 6.0 1.0 - 11.0 % 11/03/2023 9:41 AM EST [facility]02 Eosinophils % 3.0 0.0 - 6.0 % 11/03/2023 9:41 AM EST [facility] 56-02 Metamyelocytes % 2.0(H) <=0.0 % 11/03/19 9:41 AM EST [facility] 56-02 Absolute Neutrophils 2.45 1.80 - 7.70 K/uL 11/03/2023 9:41 AM EST [facility] 56-02 Absolute Lymphocytes 2.62 1.00 - 4.80 K/uL 11/03/2023 9:41 AM EST [facility] 56- Absolute Monocytes 0.34 0.00 - 1.10 K/uL 11/03/2023 9:41 AM EST [facility] 56-02 Absolute Eosinophils 0.17 0.00 - 0.70 K/uL 11/03/2023 9:41 AM EST [facility] 56- Absolute Metamyelocytes 0.11(H) <=0.00 K/uL 11/03/2023 9:41 AM EST [facility] 56-02 nRBCs 11/03/2023 9:41 AM EST [facility] 56- Reactive Lymphocytes Present(A ) None Seen 11/03/2023 9:41 AM EST [facility] 56- Smudge Cells Present(A ) None Seen 11/03/2023 9:41 AM EST [facility] 56- Blood Venous blood specimen / Unknown Central Line / Unknown 11/03/2023 9:08 AM EST 11/03/2023 9:21 AM EST Elder Rooney DNP LAB BLOOD ORDERA BLES [facility] 56- [address] [place] [address] * DIFFERENTIAL, AUTOMATED (11/03/2023 9:08 AM EST) Blood Venous blood specimen / Unknown Central Line / Unknown 11/03/2023 9:08 AM EST 11/03/2023 9:21 AM EST Elder Rooney DNP LAB BLOOD ORDERA BLES [facility] 56- [address] [place] [address] * CBC (11/03/2023 9:08 AM EST) WBC 5.69 4.00 - 10.80 K/uL 11/03/2023 9:41 AM EST [facility] 56- RBC 4.94 4.50 - 5.25 M/uL 11/03/2023 9:41 AM EST [facility] 56 HGB 14.2 14.0 - 16.8 g/dL 11/03/2023 9:41 AM EST [facility] 56 HCT 44.4 40.0 - 48.4 % 11/03/2023 9:41 AM [facility] 56 MCV 89.9 82.0 - 99.5 fL 11/03/2023 9:41 AM [facility] 56 MCH 28.7 27.0 - 34.0 pg 11/03/2023 9:41 AM [facility] 56 MCHC 32.0 32.0 - 36.0 g/dL 11/03/2023 9:41 AM [facility] 56 RDW 14.6 11.5 - 15.5 % 11/03/2023 9:41 AM [facility] 56 PLT 269 140 - 400 K/uL 11/03/2023 9:41 AM [facility] 56 MPV 10.5 6.6 - 11.1 fL 11/03/2023 9:41 AM [facility] 56 Blood Venous blood specimen / Unknown Central Line / Unknown 11/03/2023 9:08 AM EST 11/03/2023 9:21 AM EST Elder Rooney DNP LAB BLOOD ORDERA BLES [facility] [address] [place] [address] * (ABNORMAL) BASIC METABOLIC PANEL (11/03/2023 9:08 AM EST) BUN 21(H) 6 - 20 mg/dL 11/03/2023 9:50 AM [facility] Creatinine 1.1 0.6 - 1.2 mg/dL 11/03/2023 9:50 AM [facility] 56 Estimated Glomerular Filtration Rate 77 >=60 mL/min 11/03/2023 9:50 AM [facility] 56 Comment:eGFR is calculated b ased on the CKD-EPI 2020 equation Sodium 138 135 - 146 mmol/L 11/03/2023 9:50 AM [facility] 56-02 Potassium 4.4 3.5 - 5.1 mmol/L 11/03/2023 9:50 AM [facility] 56- Chloride 103 98 - 107 mmol/L 11/03/2023 9:50 AM [facility] 56-02 CO2 24 22 - 32 mmol/L 11/03/2023 9:50 AM EST [facility] 56-02 Anion Gap 11 7 - 15 mmol/L 11/03/2023 9:50 AM [facility] 56- Glucose 163(H) 70 - 120 mg/dL 11/03/2023 9:50 AM [facility] 56- Calcium 10.1 8.4 - 10.2 mg/dL 11/03/2023 9:50 AM [facility] 56-02 Blood Venous blood specimen / Unknown Central Line / Unknown 11/03/2023 9:08 AM EST 11/03/2023 9:21 AM EST Elder Rooney DNP LAB BLOOD ORDERA BLES Performing Organization Address City/[facility]/ZIP Co de Phone Number [facility] 56-[address] [place] [address] * ALBUMIN / CREATININE RATIO, URINE (11/03/2023 9:08 AM EST) Albumin, Random Urine <1.20 mg/dL 11/03/2023 9:33 PM EST [facility] Creatinine, Random Urine 126 mg/dL 11/03/2023 9:33 PM EST [facility] Albumin / Creatinine Ratio, Urine <10 <30 mg/g Creat 11/03/2023 9:33 PM EST [facility] Urine Urine specimen obtained by clean catch procedure / Unknown Non-blood Collection / Unknown 11/03/2023 9:08 AM EST 11/03/2023 10:28 AM EST Narrative [facility] - 11/03/2023 9:33 PM EST Normal: <30 mg/g creatinine High: 30-300 mg/g creatinine Very High: >300 mg/g creatinine Nephrotic: >2200 mg/g creatinine Elder Rooney DNP LAB URINE ORDERA BLES [facility] [address] [place] [address] * (ABNORMAL) HEMOGLOBIN A1C (11/03/2023 9:08 AM EST) Hemoglobin A1C 8.6(H) 4.0 - 5.6 % 11/03/2023 12:27 PM EST [facility] Comment:The use of HbA1c to monitor glycemic status is based on normal hemoglobin and HbA composition. This test should not be used in patients with abnormal hemoglobin that affects the half life of the red blood cell or the in vivo glycation rates. Estimated Average Glucose 200(H) <126 mg/dL 11/03/2023 12:27 PM EST [facility] Blood Central Line / Unknown 11/03/2023 9:08 AM EST 11/03/2023 9:21 AM EST Codi Cam PA-C LAB BLOOD [facility]A BLES Performing Organization Address [facility] de Phone Number [facility] [address] [place] [address] * MAGNESIUM (11/03/2023 9:08 AM EST) Pathologist [facility] Magnesium 2.1 1.5 - 2.6 mg/dL 11/03/2023 9:50 AM EST [facility]-02 Blood Venous blood specimen / Unknown Central Line / Unknown 11/03/2023 9:08 AM EST 11/03/2023 9:21 AM EST Elder Rooney [facility] LAB BLOOD ORDERA BLES Performing Organization Address [facility] Co de Phone Number [facility] 56-[address] [place] [address] documented in this encounter Visit Diagnoses Diagnosis Kidney replaced by transplant- Primary DM type 2, not at goal (HCC) Type II or unspecified type diabetes mellitus without mention of complication, not stated as uncontrolled Need for prophylactic immunotherapy Immunosuppressive management encounter following kidney transplant Encounter for long-term (current) use of other medications documented in this encounter Administered Medications Inactive Administered Medications - up to 3 most recent administrations Medication Order MAR Action Action Date Dose Rate Site Belatacept (Nulojix) 575 mg in NSS 100 mL infusion 575 mg (rounded from 577 mg = 5 mg/kg 115.4 kg Treatment plan Recorded weight), Intravenous, ONCE, 1 dose, On Nury 11/03/23 at 1100, Administer over 30 Minutes, Final conc. between 2 and 10 mg/mL Administer over 30 minutes with an infusion set and a sterile, nonpyrogenic, lnp-klbuyuh-sfignhx filter (pore size of 0.2 to 1.2 micrometer) Start Infusion 11/03/2023 10:02 AM EST 575 mg 200 mL/hr hEParin 100 UNIT/ML Lock Flush inj 500 Units 500 Units (5 mL), IV Lock, PRN Other, IV Flush, Starting on Nury 11/03/23 at 0927, Until Nruy 11/03/23 at 1451, For 24 hours, Do not flush if lock, PICC, or central line not in place; IV infusing or unable to flush. Given 11/03/2023 10:33 AM EST 500 Units NSS infusion 500 mL, Intravenous, at 10 mL/hr, CONTINUOUS, Starting on Nury 11/03/23 at 1030, Until Nury 2 at 1451 Start Infusion 11/03/2023 9:15 AM EST 500 mL 10 mL/hr sodium chloride 0.9 % flush/inj 10 mL 10 mL, IV Push, PRN Other, IV Flush, Starting on Nury 11/03/23 at 0927, Until Nury 224 at 1451, For 24 hours, Do not flush if lock, PICC, or central line not in place; IV infusing or unable to flush. Given 11/03/2023 10:33 AM EST 10 mL documented in this [...] the patient have Health Care Power of Tax Record Clerk? No Full Code 09/24/2018 3:28 PM 09/25/2018 5:03 AM Thi s order reflects the patients wishes and were consensually agreed upon. Question Answer Comments Discussion of Advance Directives occurred with: Not Discussed Does the patient have a Living Will? No Does the patient have Health Care Power of Tax Record Clerk? No Care Teams Mail Officer Relationship Specialty Start Date End Date Ivan Martinez MD [address] [place] [address] [place] [address] PCP - General Family Medicine 10/19/23 documented as of this encounter
--- OUTSIDE RECORDS SUMMARY | 2023-12-08 20:03 | External Medical Summary ---
Author Name Unknown Address Unknown Organization [id number]:LABORATORY [facility] [place] - [address] [facility] [address] Laboratory Report Ordering Provider Test Date Status LUISANA,XAVIER 11/03/2023 09:08:33 Final Observation Date Value Abnormality Reference (Units ) Status HbA1C 11/03/2023 09:08:33 8.6 Above high normal 4. 0-5.6 (%) Final The use of HbA1c to monitor glycemic status is based on normal hemoglobin and HbA composition. This test should not be used in patients with abnormal hemoglobin that affects the half life of the red blood cell or the in vivo glycation rates. Glucose, estimated average 11/03/2023 09:08:33 200 Above high normal <126 (mg/dL) Shaheed duenas Performing Location LABORATORY [facility] - [address] [facility] [address]
--- OUTSIDE RECORDS SUMMARY | 2023-12-08 20:04 | External Medical Summary | Summary of Care ---
Author Name Unknown Organization [facility] Address [address] [place] [address] Phone [phone] Care Team Providers Care Garbage Pick Up Worker Name Role Phone Rubio Dias MD Primary Care Provider Reason for Visit * Reason Onset Date Comments Medication Refill 10/11/2023 mycophenolate Encounter Details Date Type Department Care Team (Late st Contact Info) Description [facility] [address] [place], [place] [phone] Elder Rooney, [facility] [address] [place] [address] Kidney replaced by transplant; Need for prophylactic immunotherapy Allergies Active Allergy Reactions Criticality Noted Date Comments Bee Venom 04/03/2002 Ondansetron Hcl Edema Other 07/12/2017 All over swelling documented as of this encounter (statuses as of 10/11/2023) Medications Medication Sig Dispensed Refills Start Date [...] site prior to Monthly infusion). [facility] to [facility] infusion 30 g [...] 0.4 mL 11 3 Active Dexcom G6 Engineer Of System Development Device Use as directed 1 Each 0 3 Active Dexcom G6 Sensor Apply a new sensor every 10 days 9 Each 3 3 Active Dexcom G6 Transmitter Use with dex com continuous glucose sensor as directed by network systems administrator 1 Each 4 3 Active Tamsulosin HCl [...] 360 mg before bedtime. 360 Tablet 3 4 Active Mycophenolate Sodium 180 MG Oral Tablet Delayed Release (Myfortic)Indicat ions:Kidney replaced by transplant,Need for prophylactic immunotherapy Take 360 mg by mouth in the morning and 360 mg before bedtime. 360 Tablet 3 3 10/11/19 24 Discontinu ed(Refill) documented as of this encounter (statuses as of 10/11/2023) Active Problems Problem Noted Date Diagnosed Date [...] as of this encounter (statuses as of 10/11/2023) Resolved Problems Problem Noted Date Diagnosed Date [...] as of this encounter (statuses as of 10/11/2023) Immunizations Name Administration Dates Next Due PPD [...] encounter Miscellaneous Notes * Telephone Encounter - Elder Rooney DNP - 10/11/2023 8:47 AM ESTSigned Prescriptions: Disp Refills Mycophenolate Sodium 180 MG Oral Tablet De*360 Ta*3 Sig: Take 360 mg by mouth in the morning and 360 mg before bedtime.Authorizing Provider: ELDER ROONEY---- documented in this encounter Plan of Treatment Upcoming Encounters Date Type Department Care Team (Late st Contact Info) Description 11/02/2023 8:00 AM EST Office Visit Transplant Clinic, [place] [address] [place] [address] Elder Rooney DNP [address] [place] [address] 11/02/2023 8:30 AM EST Pharmacy Endocrinology, [place] [address] [place], [place] [phone] [place], Pharmacist Endocrinology [address] [place] [phone] 11/03/2023 9:00 AM EST Hem/Onc Treatment Hematology/Oncology Treatment, [address] [address] Susan, Chair 10 Hem On[address] [address] 12/28/2023 3:40 PM EDT Office Visit Family Medicine [address] [phone] Ivan Martinez MD [address] [place] [address] [place] [address] 03/20/2024 7:30 AM EDT Office Visit Endocrinology, [place] [address] [place], [place] [phone] Codi Cam PA-C [address] [place] [address] Health Maintenance Due Date Last Done Comments [...] 08/10/2023, Additional history exists GFR 10/05/2024 10/05/2023, 03/2023, 08/10/2023, Additional history exists GARDASIL-HPV IMMUNIZATION SERIES Aged Out No longer eligible based on patient's age to complete this topic MENINGOCOCCAL (MENACTRA/MENVEO) Aged Out No longer eligible based on patient's age to complete this topic documented as of this encounter Medical Devices Implanted Type Area Professor Of Industrial Technology Device Identifier Shelf Expiration Date Model / Serial / Lot Port Implant W/8f Poly Cath - [id number] Implanted:Qty : 1 on 05/12/2021 by Dong Ackerman, at OR [facility] Right: Chest CR BARD : PERIPHERAL VASCULAR [id number] 08/02/2021 [id number] / / [id number] documented as of this encounter Visit Diagnoses Diagnosis Kidney replaced by transplant Need for prophylactic immunotherapy documented in this encounter Advance Directives Latest [...] the patient have Health Care Power of Electroplating Sales Representative? No Full Code 09/24/2018 3:28 PM 09/25/2018 5:03 AM Thi s order reflects the patients wishes and were consensually agreed upon. Question Answer Comments Discussion of Advance Directives occurred with: Not Discussed Does the patient have a Living Will? No Does the patient have Health Care Power of Electroplating Sales Representative? No Care Teams Garbage Pick Up Worker Relationship Specialty Start Date End Date Rubio Dias MD [address] [place] [address] [place] [address] PCP - General Family Medicine 12/22/22 documented as of this encounter
--- OUTSIDE RECORDS SUMMARY | 2023-12-08 20:04 | External Medical Summary ---
Author Name Unknown Address Unknown Organization K09:[facility] [address] [place] [address] Laboratory Report Ordering Provider Test Date Status TONY KRUEGER 10/05/2023 13:09:40 Final Observation Date Value Abnormality Reference (Units ) Status SYNC LEUKOCYTES IN BLOOD BY AUTOMATED COUNT 10/05/2023 13:09:40 5.79 4.00-10.80 (K/uL) Final Neutrophils/100 leukocytes in Blood by Manual count 10/05/2023 13:09:40 61.0 40.0-75.0 (%) Final Lymphocytes/100 leukocytes in Blood by Manual count 10/05/2023 13:09:40 27.0 18.0-42.0 (%) Final Monocytes/100 leukocytes in Blood by Manual count 10/05/2023 13:09:40 8.0 1.0-11.0 (%) Final Eosinophils/100 leukocytes in Blood by Manual count 10/05/2023 13:09:40 3.0 0.0-6.0 (%) Final Basophils/100 leukocytes in Blood by Manual count 10/05/2023 13:09:40 1.0 0.0-2.0 (%) Final Neutrophils [#/volume] in Blood by Manual count 10/05/2023 13:09:40 3.53 1.80-7.70 (K/uL) Final Lymphocytes [#/volume] in Blood by Manual count 10/05/2023 13:09:40 1.56 1.00-4.80 (K/uL) Final Monocytes [#/volume] in Blood by Manual count 10/05/2023 13:09:40 0.46 0.00-1.10 (K/uL) Final Eosinophils [#/volume] in Blood by Manual count 10/05/2023 13:09:40 0.17 0.00-0.70 (K/uL) Final Basophils [#/volume] in Blood by Manual count 10/05/2023 13:09:40 0.06 0.00-0.20 (K/uL) Final Nucleated erythrocytes/100 leukocytes [Ratio] in Blood by Automated count 10/05/2023 13:09:40 Final Variant lymphocytes [Presence] in Blood by Light microscopy 10/05/2023 13:09:40 Present Abnormal None Seen Final Performing Location [facility] [address] [place] [address]
--- OUTSIDE RECORDS SUMMARY | 2023-12-08 20:04 | External Medical Summary ---
Author Name Unknown Address Unknown Organization K01:[facility] [place] [address] [address] Laboratory Report Ordering Provider Test Date Status TONY KRUEGER 10/05/2023 13:28:50 Final Normal: <30 mg/g creatinine< br/>High: 30-300 mg/g creatinine
Very High: >300 mg/g creatinine
Nephrotic: >2200 mg/g creatinine Observation Date Value Abnormality Reference (Units ) Status Albumin, Urine 10/05/2023 13:28:50 1.46 (mg/dL) Final Creatinine, Urine 10/05/2023 13:28:50 105 (mg/dL) Final Albumin/Creatinine [Mass Ratio] in Urine 10/05/2023 13:28:50 14 <30 (mg/g Creat) Final Performing Location [facility] [place] [address] [place] [address]
--- OUTSIDE RECORDS SUMMARY | 2023-12-08 20:04 | External Medical Summary | Summary of Care ---
Author Name Unknown Organization [facility] Address [address] [facility] [place] [address] Phone [phone] Care Team Providers Care Lap Cutter Truer Operator Name Role Phone Rubio Dias MD Primary Care Provider Reason for Visit * Reason Onset Date Comments Appointment 09/14/2023 Encounter Details Date Type Department Care Team (Late st Contact Info) Description 09/14/2023 Telephone Hematology/Oncology [facility] [place] [address] [facility] [place] [address] Mike Pittman MD [address] [facility] [address] Appointment Allergies Active Allergy Reactions Criticality Noted Date Comments Bee Venom 04/03/2002 Ondansetron Hcl Edema Other 07/12/2017 All over swelling documented as of this encounter (statuses as of 09/22/2023) Medications Medication Sig Dispensed Refills Start Date [...] site prior to Monthly infusion). Apply to [facility] site prior to Monthly infusion [...] 0.4 mL 11 02/16/2023 Active Dexcom G6 Die Engraver Device Use as directed 1 Each 0 02/16/2023 Active Dexcom G6 Sensor Apply a new sensor every 10 days 9 Each 3 02/16/2023 Active Dexcom G6 Transmitter Use with coin4ce continuous glucose sensor as directed by director of personnel 1 Each 4 02/16/2023 Active Mycophenolate Sodium 180 MG Oral Tablet Delayed Release (Myfortic)Indicati ons:Kidney replaced by transplant,Need for prophylactic immunotherapy Take 360 mg by mouth in the morning and 360 mg before bedtime. 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 * Telephone Encounter - Angela Lilly OSA - 09/22/2023 9:17 AM EST Spoke to patients after calling mobile, she stated there house line should definitely be working and asked me to call that number to speak to him. Hung up, called house number listed as primary,3 times. Still said not in service. Called mobile number back. stated she would need our number here and he would have to call. * Telephone Encounter - Angela Lilly OSA - 09/21/2023 1:33 PM EST Called number on file, states it is not in service. * Telephone Encounter - Angela Lilly OSA - 09/19/2023 3:41 PM EST Called number on file, states it is not in service. * Telephone Encounter - Angela Lilly OSA - 09/15/2023 3:17 PM EST Called patient, left message on house number to reschedule infusion on 10/05. Either change time sameday, or move to another day. * Telephone Encounter - Angela Lilly OSA - 09/14/2023 2:51 PM EST Called patient, left message on house number to reschedule infusion on 10/05. Either change time sameday, or move to another day. documented in this encounter Plan of Treatment Upcoming Encounters Date Type Department Care Team (Late st Contact Info) Description 10/05/2023 1:00 PM EST Hem/Onc Treatment Hematology/Oncology Treatment, [place] [address] [facility] [place] [address] [place], Chair [address] Hem On[address] [address] 11/02/2023 8:00 AM EST Office Visit Transplant Clinic, [address] [address] [place] [address] [place] [address] 11/02/2023 8:30 AM EST Pharmacy Endocrinology, [address] [place] [address] [place], Pharmacist Endocrinology [address] [place] [address] 11/03/2023 9:00 AM EST Hem/Onc Treatment Hematology/Oncology Treatment, [place] [address] [place] [address] Susan, Chair 10 Hem Onc [address]ery [address] [facility] [address] 12/28/2023 3:40 PM EDT Office Visit Family [address] [phone] Ivan Martinez MD [address] [place] [address] [place] [address] 03/20/2024 7:30 AM EDT Office Visit Endocrinology, [place] [address] [place] [address] Codi Cam PA-C [address] [place] [address] Health Maintenance Due Date Last Done Comments [...] Foot Exam 02/17/2024 02/16/2023, 08/26/2006 Albumin/Creatinine Ratio 09/07/2024 023, 08/10/2023, 07/12/2023, Additional history exists GFR 09/07/2024 09/07/2023, 05/2023, 07/22/2023, Additional history exists GARDASIL-HPV IMMUNIZATION SERIES Aged Out No longer eligible based on patient's age to complete this topic MENINGOCOCCAL (MENACTRA/MENVEO) Aged Out No longer eligible based on patient's age to complete this topic documented as of this encounter Medical Devices Implanted Type Area Rotary Engraver Device Identifier Shelf Expiration Date Model / Serial / Lot Port Implant W/8f Poly Cath - [id number] Implanted:Qty : 1 on 05/12/2021 by Dong Ackerman, at OR [facility] Right: Chest CR BARD : PERIPHERAL VASCULAR [id number] 08/02/2021 [id number] / / [id number] documented as of this encounter Advance Directives [...] the patient have Health Care Power of R D Engineer? No Full Code 09/24/2018 3:28 PM 09/25/2018 5:03 AM Thi s order reflects the patients wishes and were consensually agreed upon. Question Answer Comments Discussion of Advance Directives occurred with: Not Discussed Does the patient have a Living Will? No Does the patient have Health Care Power of R D Engineer? No Care Teams Lap Cutter Truer Operator Relationship Specialty Start Date End Date Rubio Dias MD [address] [place] [address] [place] [address] PCP - General Family Medicine 12/22/22 documented as of this encounter
--- OUTSIDE RECORDS SUMMARY | 2023-12-08 20:04 | External Medical Summary | Summary of Care ---
Author Name Unknown Organization [facility] Address [address] [place] [address] Phone [phone] Care Team Providers Care Aeronautical Engineering Technologist Name Role Phone Rubio Dias MD Primary Care Provider Reason for Visit * Reason Comments IV Therapy Nulojix. Procedure Labs from port * Episode Based Medications (Routine) - Authorized Specialty Diagnoses / Procedures Referred By Bob banerjee Referred To Contact Diagnoses Kidney replaced by transplant Procedures HI BELATACEPT INJECTION Elder Rooney, DNP [address] [place] [address] Anc Hem/Onc Yazan Davis DEPT CLOSED - 08/16/23 [address] [place] [address] Referral ID Status Reason Start Date Expiration Date V isits Requested Visits Authorized [id number] Authorized 10/05/2023 10/05/2024 99 99 Encounter Details Date Type Department Care Team (Latest Contact Info) Description 10/05/2023 1:00 PM EST Hem/Onc Treatment Hematology/Oncolog y Treatment, [place] [address] [place] [address] Susan, Chair 8 Hem Onc [address] [place] [phone] Kidney replaced by transplant*; Need for prophylactic immunotherapy Allergies Active Allergy Reactions Criticality Noted Date Comments Bee Venom 04/03/2002 Ondansetron Hcl Edema Other 07/12/2017 All over swelling documented as of this encounter (statuses as of 10/05/2023) Medications Medication Sig Dispensed Refills Start Date [...] hemoglobin A1c goal of less than 7.0% ([facility]) Take 1 Tablet by mouth in [...] 0.4 mL 11 02/16/2023 Active Dexcom G6 Storeperson Device Use as directed 1 Each 0 02/16/2023 Active Dexcom G6 Sensor Apply a new sensor every 10 days 9 Each 3 02/16/2023 Active Dexcom G6 Transmitter Use with [employer] continuous glucose sensor as directed by retail helper 1 Each 4 02/16/2023 Active Mycophenolate Sodium [...] as of this encounter (statuses as of 10/05/2023) Active Problems Problem Noted Date Diagnosed Date [...] as of this encounter (statuses as of 10/05/2023) Resolved Problems Problem Noted Date Diagnosed Date [...] as of this encounter (statuses as of 10/05/2023) Immunizations Name Administration Dates Next Due PPD [...] Sign Reading Time Taken Comments Blood Pressure 117/73 10/05/2023 1:14 PM EST Pulse 78 10/05/2023 1:14 PM EST Temperature 36.3 C (97.3 F) 10/05/2023 1:14 PM ES T Respiratory Rate 18 10/05/2023 1:14 PM EST Oxygen Saturation 96% 10/05/2023 1:14 PM EST Inhaled Oxygen Concentration - - Weight 119.9 kg (264 lb 6.4 oz) 10/05/2023 1:14 PM EST Height - - Body Mass Index 33.05 08/24/2023 7:47 AM EST documented in this encounter Functional Status Functional [...] as of this encounter Nursing Notes * Genesis Dalton RN - 10/05/2023 2:47 PM EST Goals: Patient will remain free from injury. Possible barriers to meeting goals: Fall risk d/t ambulation with IV pole. Stability of the patient: Moderately stable - low risk of patient condition declining or worsening Summary regarding today's goals: Met: Patient remained free of injury. Patient tolerated procedure well. Discharged in stable condition. * Genesis Dalton RN - 10/05/2023 1:33 PM EST Chair 5. Patient arrived for nulojix treatment and labs from [facility] with no complaints. Safety and Risk for Injury Patient will remain free from injury. Ensure appropriate safety devices are available. Provide and maintain safe environment. documented in this encounter Plan of Treatment Upcoming Encounters Date Type Department Care Team (Late st Contact Info) Description 11/02/2023 8:00 AM EST Office Visit Transplant Clinic, [place] [address] [place] [address] Elder Rooney [facility] [address] [place] [address] 11/02/2023 8:30 AM EST Pharmacy Endocrinology, [place] [address] [place] [address] [place], Pharmacist Endocrinology [facility] [place] [address] 11/03/2023 9:00 AM EST Hem/Onc Treatment Hematology/Oncology Treatment, [address] [place] [address] Susan, Chair 10 Hem Onc [address] [address] [place] [address] 12/28/2023 3:40 PM EDT Office Visit Family [address] [phone] Ivan Martinez MD [address] [place] [address] [place] [address] 03/20/2024 7:30 AM EDT Office Visit Endocrinology, [place] [address] [place] [address] Codi Cam PA-C [address] [place], [place] [phone] Pending Results Name Type Priority Associated Diagnoses Date /Time BK VIRUS DNA, QUANTITATIVE REAL-TIME PCR, BLOOD Lab STAT Kidney replaced by transplant Need for prophylactic immunotherapy 10/05/2023 1:09 PM EST ALBUMIN / CREATININE RATIO, URINE Lab STAT Kidney replaced by transplant Need for prophylactic immunotherapy 10/05/2023 1:28 PM EST Health Maintenance Due Date Last Done [...] 023, 08/10/2023, 07/12/2023, Additional history exists GFR 10/05/2024 10/05/2023, 12/0 03/2023, 08/10/2023, Additional history exists GARDASIL-HPV IMMUNIZATION SERIES Aged Out No longer eligible based on patient's age to complete this topic MENINGOCOCCAL (MENACTRA/MENVEO) Aged Out No longer eligible based on patient's age to complete this topic documented as of this encounter Medical Devices Implanted Type Area Head Mixer Device Identifier Shelf Expiration Date Model / Serial / Lot Port Implant W/8f Poly Cath - [id number] Implanted:Qty : 1 on 05/12/2021 by Dong Ackerman, at OR [facility] Right: Chest CR BARD : PERIPHERAL VASCULAR [id number] 08/02/2021 [id number] / / [id number] documented as of this encounter Procedures Procedure Name Priority Date/Time Associated Diagnosis Comments DIFFERENTIAL, AUTOMATED STAT 10/05/2023 1:09 PM EST Kidney replaced by transplant Need for prophylactic immunotherapy BASIC METABOLIC PANEL STAT 10/05/2023 1:09 PM EST Kidney replaced by transplant Need for prophylactic immunotherapy CBC STAT 10/05/2023 1:09 PM EST Kidney replaced by transplant Need for prophylactic immunotherapy CBC STAT 10/05/2023 1:09 PM EST Kidney replaced by transplant Need for prophylactic immunotherapy DIFFERENTIAL, TECHNOLOGIST REVIEW Routine 10/05/2023 1:09 PM EST Kidney replaced by transplant Need for prophylactic immunotherapy documented in this encounter Results * (ABNORMAL) DIFFERENTIAL, TECHNOLOGIST REVIEW (10/05/2023 1:09 PM EST) WBC 5.79 4.00 - 10.80 K/uL 10/05/2023 1:51 PM EST [facility] 56-02 Neutrophils % 61.0 40.0 - 75.0 % 10/05/2023 1:51 PM EST [facility] 56-02 Lymphocytes % 27.0 18.0 - 42.0 % 10/05/2023 1:51 PM EST [facility] 56-02 Monocytes % 8.0 1.0 - 11.0 % 10/05/2023 1:51 PM EST [facility] 56-02 Eosinophils % 3.0 0.0 - 6.0 % 10/05/2023 1:51 PM EST [facility] 56-02 Basophils % 1.0 0.0 - 2.0 % 10/05/2023 1:51 PM EST [facility] 56-02 Absolute Neutrophils 3.53 1.80 - 7.70 K/uL 10/05/2023 1:51 PM EST [facility] 56-02 Absolute Lymphocytes 1.56 1.00 - 4.80 K/uL 10/05/2023 1:51 PM EST [facility] 56-02 Absolute Monocytes 0.46 0.00 - 1.10 K/uL 10/05/2023 1:51 PM EST [facility] 56-02 Absolute Eosinophils 0.17 0.00 - 0.70 K/uL 10/05/2023 1:51 PM EST [facility] 56-02 Absolute Basophils 0.06 0.00 - 0.20 K/uL 10/05/2023 1:51 PM [facility] 56-02 nRBCs 10/05/2023 1:51 PM [facility] 56-02 Reactive Lymphocytes Present(A ) None Seen 10/05/2023 1:51 PM EST [facility] 56-02 Blood Venous blood specimen / Unknown Central Line / Unknown 10/05/2023 1:09 PM EST 10/05/2023 1:38 PM EST Elder Rooney DNP LAB BLOOD ORDERA BLES [facility] [address] [place] [address] * DIFFERENTIAL, AUTOMATED (10/05/2023 1:09 PM EST) Blood Venous blood specimen / Unknown Central Line / Unknown 10/05/2023 1:09 PM EST 10/05/2023 1:38 PM EST Elder Rooney DNP LAB BLOOD ORDERA BLES [facility] 56-02 [address] [place] [address] * CBC (10/05/2023 1:09 PM EST) WBC 5.79 4.00 - 10.80 K/uL 10/05/2023 1:51 PM EST [facility] 56 RBC 4.94 4.50 - 5.25 M/uL 10/05/2023 1:51 PM EST [facility] 5602 HGB 14.3 14.0 - 16.8 g/dL 10/05/2023 1:51 PM EST [facility] 56 HCT 43.9 40.0 - 48.4 % 10/05/2023 1:51 PM EST [facility] 56 MCV 88.9 82.0 - 99.5 fL 10/05/2023 1:51 PM EST [facility] 56 MCH 28.9 27.0 - 34.0 pg 10/05/2023 1:51 PM EST [facility] 5602 MCHC 32.6 32.0 - 36.0 g/dL 10/05/2023 1:51 PM EST [facility] 5602 RDW 14.4 11.5 - 15.5 % 10/05/2023 1:51 PM EST [facility] 5602 PLT 250 140 - 400 K/uL 10/05/2023 1:51 PM EST [facility] 5602 MPV 10.5 6.6 - 11.1 fL 10/05/2023 1:51 PM [facility] 5602 Blood Venous blood specimen / Unknown Central Line / Unknown 10/05/2023 1:09 PM EST 10/05/2023 1:38 PM EST Elder Rooney DNP LAB BLOOD ORDERA BLES [facility] 56- [address] [place] [address] * (ABNORMAL) BASIC METABOLIC PANEL (10/05/2023 1:09 PM EST) BUN 17 6 - 20 mg/dL 10/05/2023 2:35 PM EST [facility] 56- Creatinine 1.0 0.6 - 1.2 mg/dL 10/05/2023 2:35 PM EST [facility] 56- Estimated Glomerular Filtration Rate 86 >=60 mL/min 10/05/2023 2:35 PM EST [facility] 56- Comment:eGFR is calculated b ased on the CKD-EPI 2020 equation Sodium 139 135 - 146 mmol/L 10/05/2023 2:35 PM EST [facility] 56- Potassium 4.4 3.5 - 5.1 mmol/L 10/05/2023 2:35 PM EST [facility] 56- Chloride 103 98 - 107 mmol/L 10/05/2023 2:35 PM EST [facility] 56- CO2 26 22 - 32 mmol/L 10/05/2023 2:35 PM EST [facility] 56- Anion Gap 10 7 - 15 mmol/L 10/05/2023 2:35 PM EST [facility] 56- Glucose 154(H) 70 - 120 mg/dL 10/05/2023 2:35 PM EST [facility] 56- Calcium 10.6(H) 8.4 - 10.2 mg/dL 10/05/2023 2:35 PM EST [facility] 56- Blood Venous blood specimen / Unknown Central Line / Unknown 10/05/2023 1:09 PM EST 10/05/2023 1:37 PM EST Elder Rooney DNP LAB BLOOD ORDERA BLES [facility] [address]- [address] [place] [address] documented in this encounter Visit Diagnoses Diagnosis Kidney replaced by transplant- Primary Need for prophylactic immunotherapy documented in this encounter Administered Medications Active Administered Medications - up to 3 most recent administrations Medication Order MAR Action Action Date Dose Rate Site diphenhydrAMINE (Benadryl) inj 50 mg 50 mg, IV Push, ONCE PRN Other, Hypersensitivity Reaction, Starting on Tue10/05/23 at 1328, Until [place] 10/06/23 at 1327, For 24 hours EPINEPHrine 1 MG/ML inj 0.3 mg 0.3 mg, Intramuscular, ONCE PRN Other, Hypersensitivity Reaction or Anaphylaxis, Starting on Tue10/05/23 at 1328, Until [place] 10/06/23 at 1327, For 24 hours hEParin 100 UNIT/ML Lock Flush inj 500 Units 500 Units (5 mL), IV Lock, PRN Other, IV Flush, Starting on Tue10/05/23 at 1328, Until [place] 10/06/23 at 1327, For 24 hours, Do not flush if lock, PICC, or central line not in place; IV infusing or unable to flush. Given 10/05/2023 2:42 PM EST 500 Units Hydrocortisone Sod Suc (PF) (Solu-Cortef) inj 100 mg 100 mg, IV Push, ONCE PRN Other, Hypersensitivity Reaction, Starting on Tue10/05/23 at 1328, Until [place] 10/06/23 at 1327, For 24 hours NSS infusion 500 mL, Intravenous, at 10 mL/hr, CONTINUOUS, Starting on Tue10/05/23 at 1430, Until [place] 10/06/23 at 0029 Start Infusion 10/05/2023 1:25 PM EST 500 mL 10 mL/hr sodium chloride 0.9 % flush/inj 10 mL 10 mL, IV Push, PRN Other, IV Flush, Starting on Tue10/05/23 at 1328, Until [place] 10/06/23 at 1327, For 24 hours, Do not flush if lock, PICC, or central line not in place; IV infusing or unable to flush. Given 10/05/2023 2:42 PM EST 10 mL Inactive Administered Medications - up to 3 most recent administrations Medication Order MAR Action Action Date Dose Rate Site Belatacept (Nulojix) 575 mg in NSS 100 mL infusion 575 mg (rounded from 577 mg = 5 mg/kg 115.4 kg Treatment plan Recorded weight), Intravenous, ONCE, 1 dose, On Tue10/05/23 at 1500, Administer over 30 Minutes, Final conc. between 2 and 10 mg/mL Administer over 30 minutes with an infusion set and a sterile, nonpyrogenic, eoy-mmvddbb-bhrjzgo filter (pore size of 0.2 to 1.2 micrometer) Start Infusion 10/05/2023 2:10 PM EST 575 mg 200 mL/hr documented in [...] the patient have Health Care Power of Sheep Sorter? No Full Code 09/24/2018 3:28 PM 09/25/2018 5:03 AM Thi s order reflects the patients wishes and were consensually agreed upon. Question Answer Comments Discussion of Advance Directives occurred with: Not Discussed Does the patient have a Living Will? No Does the patient have Health Care Power of Sheep Sorter? No Care Teams Aeronautical Engineering Technologist Relationship Specialty Start Date End Date Rubio Dias MD [address] [place] [address] [place] [address] PCP - General Family Medicine 12/22/22 documented as of this encounter
--- OUTSIDE RECORDS SUMMARY | 2023-12-08 20:04 | External Medical Summary | Summary of Care ---
Author Name Unknown Organization [facility] Address [address] [facility] [place] [address] Phone [phone] Care Team Providers Care Mason Foreman/Superintendant Name Role Phone Ivan Martinez MD Primary Care Provide r Reason for Visit * Reason Comments Acute Pt c/o a couple elizabeth hs ago had infection (yeast) in groin area, tried nystatin powder, tried OTC meds, under belly, spreading to arms now. Encounter Details Date Type Department Care Team (Latest Contact Info) Description 10/25/2023 3:30 PM EST Office Visit Family Medicine [address] [phone] [place] [phone] Candidal skin infection*; Folliculitis; Type 2 diabetes mellitus with diabetic neuropathy, with long-term current use of insulin (HCC); Uncontrolled type 2 diabetes mellitus with hyperglycemia ([facility]) Allergies Active Allergy Reactions Criticality Noted Date Comments Bee Venom 04/03/2002 Ondansetron Hcl Edema Other 07/12/2017 All over swelling documented as of this encounter (statuses as of 10/25/2023) Medications Medication Sig Dispensed Refills Start Date [...] A1c goal of less than 7.0% ([facility]) Take 1 Tablet by mouth in the [...] 0.4 mL 11 02/16/2023 Active Dexcom G6 Diesel Engine I Pipe Fitter Device Use as directed 1 Each 0 02/16/2023 Active Dexcom G6 Sensor Apply a new sensor every 10 days 9 Each 3 02/16/2023 Active Dexcom G6 Transmitter Use with [employer] continuous glucose sensor as directed by legal nurse consultant 1 Each 4 02/16/2023 Active Tamsulosin [...] gone 4 Tablet 0 10/25/2023 Active Nystatin 346958 UNIT/GM External Powder (Nystop)Indication s:Candidal skin infection [...] as of this encounter (statuses as of 10/25/2023) Active Problems Problem Noted Date Diagnosed Date [...] as of this encounter (statuses as of 10/25/2023) Resolved Problems Problem Noted Date Diagnosed Date [...] as of this encounter (statuses as of 10/25/2023) Immunizations Name Administration Dates Next Due PPD [...] Sign Reading Time Taken Comments Blood Pressure 138/70 10/25/2023 3:22 PM EST Pulse 84 10/25/2023 3:22 PM EST Temperature 36.8 C (98.2 F) 10/25/2023 3:22 PM ES T Respiratory Rate - - Oxygen Saturation 97% 10/25/2023 3:22 PM EST Inhaled Oxygen Concentration - - Weight 118.8 kg (261 lb 12.8 oz) 10/25/2023 3:22 PM EST Height - - Body Mass Index 32.72 08/24/2023 7:47 AM EST documented in this [...] No 09/11/2019 documented as of this encounter Progress Notes * Melissa Castillo, - 10/25/2023 3:40 PM EST Subjective: Ramesh Tamez is a 57 year old male. Chief Complaint Patient presents with Acute Pt c/o a couple months ago had infection (yeast) in groin area, tried nystatin powder, tried OTC meds, under belly, spreading to arms now. HPI: Ramesh Tamez presents today for evaluation of rash. It started in his groin and is nowgoing up under his abdomen. Recently he has also noticed spot on his left arm. 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 1 D5W 5% SOLN 100 mL with belatacept 250 MG SOLR Administer 5 mg/kg intravenously once. Induction then monthly Rosuvastatin Calcium 20 MG Oral Tablet Take 1 Tablet by mouth in the morning. folic acid 1 MG Tablet Take 1 Tablet by mouth in the morning. Insulin Glargine 100 UNIT/ML Subcutaneous Solution Pen-injector Inject 48 Units under the skin in the morning and 48 Units before bedtime. Lidocaine-Prilocaine 2.5-2.5 % External Kit (Emla) Apply a pea-sized amount over mediport 30 minutes prior to access. Cover with occlusive dressing/plastic wrap until prep 5 g 5 Lidocaine-Prilocaine 2.5-2.5 % External Cream (Emla) Apply topically to affected area as needed (Mediport site prior to Monthly infusion). Apply to Mediport site prior to Monthly infusion 30 g 0 Aspirin EC 81 MG Oral Tablet Delayed Release Take 1 Tablet by mouth in the morning. Lidocaine 5 % External Patch (Lidoderm) Place 1 Patch topically on the skin daily. 12 hours ON and 12 hours OFF 30 Patch 5 Gvoke HypoPen 2-Pack 1 MG/0.2ML Subcutaneous Solution Auto-injector (Glucagon) Inject 1.0 mg under the skin of belly/thigh or upper arm as needed for unresponsiveness due to suspected hypoglycemia 0.4 mL 11 Dexcom G6 Diesel Engine I Pipe Fitter Device Use as directed 1 Each 0 Dexcom G6 Sensor Apply a new sensor every 10 days 9 Each 3 Dexcom G6 Transmitter Use with [employer] continuous glucose sensor as directed by legal nurse consultant 1 Each4 Tamsulosin HCl 0.4 MG Oral Capsule (Flomax) TAKE 1 CAPSULE BY MOUTH EVERY DAY AT NIGHT 90 Capsule 3 HumaLOG KwikPen 100 UNIT/ML Subcutaneous Solution Pen-injector Inject 26 units plus sliding scale three times daily with meals. Needs up to 80 u/d 75 mL 3 dilTIAZem HCl ER Coated Beads 240 MG Oral Capsule Extended Release 24 Hour (Cardizem CD) TAKE 1 CAPSULE BY MOUTH EVERY DAY 90 Capsule 3 Omnipod 5 G6 Pod (Gen 5) Use as directed. Use up to 200 units via insulin pod every 24 hours. 90 Each 3 Pregabalin 225 MG Oral Capsule (Lyrica) Take 1 Capsule by mouth every evening. 90 Capsule 1 HumaLOG 100 UNIT/ML Subcutaneous Solution Use to fill Omnipod with 200 units every 2 days. E11.9 and Z96.41 30 mL 11 Mycophenolate Sodium 180 MG Oral Tablet Delayed Release (Myfortic) Take 360 mg by mouth in the morning and 360 mg before bedtime. 360 Tablet 3 No current facility-administered medications for this visit. Review of patient's allergies indicates: Allergen Reactions Bee Venom Zofran [Ondansetron Hcl] Edema Other All over swelling Objective: BP 138/70 | Pulse 84 | Temp 36.8 C (98.2 F) | Wt 118.8 kg (261 lb 12.8 oz) | SpO2 97% | BMI 32.72 kg/m | BSA 2.51 m General: alert, healthy, no distress, well nourished, and well developed Skin: in the bilateral inguinal area is a large confluent area of erythema, there are scattered purulent macules over the lower abdominal wall consistent with folliculitis. On the left wrist is a lesion suspicious for tinea. ASSESSMENT/PLAN: Candidal skin infection (Primary) - nystatin powder to help with sweating. Discussed the importanceof keeping the area clean and dry as much as possible. - Fluconazole 150 MG Oral Tablet (Diflucan); Take 1 Tablet by mouth once a week. Until gone - Nystatin 618680 UNIT/GM External Powder (Nystop); Apply topically to affected area 3 times a day. Folliculitis - lower abdomen. No history of MRSA. - Cephalexin 500 MG Oral Capsule; Take 1 Capsule by mouth in the morning and 1 Capsule at noon and 1 Capsule in the evening and 1 Capsule before bedtime. Do all this for 10 days. Type 2 diabetes mellitus with diabetic neuropathy, with long-term current use of insulin (HCC) Uncontrolled type 2 diabetes mellitus with hyperglycemia (HCC) - dicussed the importance of good blood sugar control. He is working with Follow up as scheduled. Pt will send a MyG message in about a month with an update on how his rash is doing. Melissa Castillo DO documented in this encounter Plan of Treatment Upcoming Encounters Date Type Department Care Team (Late st Contact Info) Description 11/02/2023 8:00 AM EST Office Visit Transplant Clinic, [place] [address] [place] [address] Elder Rooney, [place] [address] [place] [address] 11/03/2023 9:00 AM EST Hem/Onc Treatment Hematology/Oncology Treatment, [place] [address] [place] [address] Susan, Chair 10 Hem Onc [facility] [address] [place] [address] 12/22/2023 9:30 AM EDT Office Visit Endocrinology, [address] [phone] [place], Pharmacist Endocrinology [address] [place] [address] 12/28/2023 3:40 PM EDT Office Visit Family Medicine [address] [phone] Ivan Martinez MD [address] [place] [address] [place] [address] 03/20/2024 7:30 AM EDT Office Visit Endocrinology, [place] [address] [place], [place] [phone] Codi Cam PA-C [address] [place], [place] [id number] Health Maintenance Due Date Last Done Comments [...] this encounter Medical Devices Implanted Type Area Experience Design Director Device Identifier Shelf Expiration Date Model / Serial / Lot Port Implant W/8f Poly Cath - [id number] Implanted:Qty : 1 on 05/12/2021 by Dong Ackerman, at OR [facility] Right: Chest CR BARD : PERIPHERAL VASCULAR [id number] 08/02/2021 [id number] / / [id number] documented as of this encounter Visit Diagnoses Diagnosis Candidal skin infection- Primary Candidiasis of skin and nails Folliculitis Other specified disease of hair and hair follicles Type 2 diabetes mellitus with diabetic neuropathy, with long-term current use of insulin (HCC) Uncontrolled type 2 diabetes mellitus with hyperglycemia (HCC) documented in this encounter Advance Directives Latest [...] the patient have Health Care Power of Deputy Coroner Investigator? No Full Code 09/24/2018 3:28 PM 09/25/2018 5:03 AM Thi s order reflects the patients wishes and were consensually agreed upon. Question Answer Comments Discussion of Advance Directives occurred with: Not Discussed Does the patient have a Living Will? No Does the patient have Health Care Power of Deputy Coroner Investigator? No Care Teams Mason Foreman/Superintendant Relationship Specialty Start Date End Date Ivan Martinez MD [address] [place] [address] [place] [phone] PCP - General Family Medicine 10/19/23 documented as of this encounter"
--- OUTSIDE RECORDS SUMMARY | 2023-12-08 20:04 | External Medical Summary | Summary of Care ---
Author Name Unknown Organization [facility] Address [address] [facility] [place] [address] Phone [phone] Care Team Providers Care Resident Assistant Cna Name Role Phone Rubio Dias MD Primary Care Provider Reason for Visit * Reason Onset Date Comments Appointment 09/14/2023 Encounter Details Date Type Department Care Team (Late st Contact Info) Description 09/14/2023 Telephone Hematology/Oncology [facility] Susan [place] [address] [facility] [place] [address] Mike Pittman MD [address] [facility] [place] [address] Appointment Allergies Active Allergy Reactions Criticality Noted Date Comments Bee Venom 04/03/2002 Ondansetron Hcl Edema Other 07/12/2017 All over swelling documented as of this encounter (statuses as of 09/21/2023) Medications Medication Sig Dispensed Refills Start Date [...] site prior to Monthly infusion). Apply to [facility] site prior to Monthly infusion 30 g [...] 0.4 mL 11 02/16/2023 Active Dexcom G6 Geodetic Survey Director Device Use as directed 1 Each 0 02/16/2023 Active Dexcom G6 Sensor Apply a new sensor every 10 days 9 Each 3 02/16/2023 Active Dexcom G6 Transmitter Use with [place] continuous glucose sensor as directed by adobe block maker 1 Each 4 02/16/2023 Active Mycophenolate Sodium [...] as of this encounter (statuses as of 09/21/2023) Active Problems Problem Noted Date Diagnosed Date [...] as of this encounter (statuses as of 09/21/2023) Resolved Problems Problem Noted Date Diagnosed Date [...] as of this encounter (statuses as of 09/21/2023) Immunizations Name Administration Dates Next Due PPD [...] Team (Late st Contact Info) Description 10/05/2023 9:00 AM EST Hem/Onc Treatment Hematology/Oncology Treatment, [address] [address] Susan, Chair 10 Hem Onc [address] [place] [address] 11/02/2023 8:00 AM EST Office Visit Transplant Clinic, [address] [address] Elder Rooney, [place] [address] [place] [address] 11/02/2023 8:30 AM EST Pharmacy Endocrinology, [address] [address] [place], Pharmacist Endocrinology [address] [place] [address] 11/03/2023 9:00 AM EST Hem/Onc Treatment Hematology/Oncology Treatment, [address] [place] [address] Susan, Chair 10 Hem Onc [address] [place] [address] 12/28/2023 3:40 PM EDT Office Visit Family Medicine [address] [phone] Ivan Martinez MD [address] [place] [address] [place] [address] 03/20/2024 7:30 AM EDT Office Visit Endocrinology, [place] [address] [place] [address] Codi Cam PA-C [address] [place] [address] Health Maintenance Due Date Last Done Comments [...] 07/12/2023, Additional history exists GFR 09/07/2024 09/07/2023, 1105/2023, 07/22/2023, Additional history exists GARDASIL-HPV IMMUNIZATION SERIES Aged Out No longer eligible based on patient's age to complete this topic MENINGOCOCCAL (MENACTRA/MENVEO) Aged Out No longer eligible based on patient's age to complete this topic documented as of this encounter Medical Devices Implanted Type Area Clothes Ironer Device Identifier Shelf Expiration Date Model / Serial / Lot Port Implant W/8f Poly Cath - [id number] Implanted:Qty : 1 on 05/12/2021 by Dong Ackerman, at OR [facility] Right: Chest CR BARD : PERIPHERAL VASCULAR [id number] 08/02/2021 [id number] / / [id number] documented as of this encounter Advance Directives [...] the patient have Health Care Power of District Commercial Superintendent? No Full Code 09/24/2018 3:28 PM 09/25/2018 5:03 AM Thi s order reflects the patients wishes and were consensually agreed upon. Question Answer Comments Discussion of Advance Directives occurred with: Not Discussed Does the patient have a Living Will? No Does the patient have Health Care Power of District Commercial Superintendent? No Care Teams Resident Assistant Cna Relationship Specialty Start Date End Date Rubio Dias MD [address] [place] [address] [place] [id number] PCP - General Family Medicine 12/22/22 documented as of this encounter
--- OUTSIDE RECORDS SUMMARY | 2023-12-08 20:04 | External Medical Summary | Summary of Care ---
Author Name Unknown Organization [facility] Address [address] [place] [address] Phone [phone] Care Team Providers Care Specimen Collector Name Role Phone Rubio Dias MD Primary Care Provider Reason for Visit * Reason Comments Infusion Nulojix * Episode Based Medications (Routine) - Authorized Specialty Diagnoses / Procedures Referred By Contbaudilio t Referred To Contact Diagnoses Kidney replaced by transplant Procedures [place] [facility] Elder Rooney, DNP [address] [place] [address] Anc Hem/Onc [facility] [place] DEPT CLOSED - 08/16/23 [address] [place] [address] Referral ID Status Reason Start Date Expiration Date V isits Requested Visits Authorized [id number] Authorized 12/28/2021 10/02/2099 99 99 Encounter Details Date Type Department Care Team (Latest Contact Info) Description 09/07/2023 9:00 AM EST Hem/Onc Treatment Hematology/Oncolog y Treatment, [place] [address] [place] [address] Susan, Chair 10 Hem Onc [address] [place] [address] Kidney replaced by transplant*; Need for prophylactic immunotherapy Allergies Active Allergy Reactions Criticality Noted Date Comments Bee Venom 04/03/2002 Ondansetron Hcl Edema Other 07/12/2017 All over swelling documented as of this encounter (statuses as of 09/07/2023) Medications Medication Sig Dispensed Refills Start Date [...] site prior to Monthly infusion). Apply to [facility] site prior to Monthly infusion 30 g 0 09/14/2021 Active Aspirin EC 81 MG Oral Tablet Delayed ReleaseIndications :Kidney replaced by transplant,Type 2 diabetes mellitus with hemoglobin A1c goal of less than 7.0% ([facility]) Take 1 Tablet by mouth [...] 0.4 mL 11 02/16/2023 Active Dexcom G6 Motor Generator Set Operator Device Use as directed 1 Each 0 02/16/2023 Active Dexcom G6 Sensor Apply a new sensor every 10 days 9 Each 3 02/16/2023 Active Dexcom G6 Transmitter Use with [place] continuous glucose sensor as directed by wet mixer 1 Each 4 02/16/2023 Active Mycophenolate Sodium [...] as of this encounter (statuses as of 09/07/2023) Active Problems Problem Noted Date Diagnosed Date [...] as of this encounter (statuses as of 09/07/2023) Resolved Problems Problem Noted Date Diagnosed Date [...] as of this encounter (statuses as of 09/07/2023) Immunizations Name Administration Dates Next Due PPD 11/27/2014,07/18/2012 Pneumococcal Conjugate Vaccine, 7 Valent 012 Pneumococcal Polysaccharide PPV23 (Pneumovax) SEASONAL INFLUENZA, PF, 6 M & Above, IM , (FLULAVAL or FLUZONE) 06/14/2018 Seasonal Influenza, Quadrivalent, No Preserve, I [...] 9:00 AM EST Hem/Onc Treatment Hematology/Oncology Treatment, [address] [address] Susan, Chair 10 Hem Onc [address] [place] [address] 11/02/2023 8:00 AM EST Office Visit Transplant Clinic, [address] [address] Elder Rooney, [facility] [address] [place] [address] 11/02/2023 8:30 AM EST Pharmacy Endocrinology, [place] [address] [place] [address] [place], Pharmacist Endocrinology [facility] [place] [address] 11/03/2023 9:00 AM EST Hem/Onc Treatment Hematology/Oncology Treatment, [address] [address] Susan, Chair 10 Hem Onc [address] [place] [address] 12/28/2023 3:40 PM EDT Office Visit Family Medicine [address] [place] [phone] Ivan Martinez MD [address] [place] [address] [place] [address] 03/20/2024 7:30 AM EDT Office Visit Endocrinology, [place] [address] [place] [address] Codi Cam PA-C [address] [place] [address] Pending Results Name Type Priority Associated Diagnoses Date /Time ALBUMIN / CREATININE RATIO, URINE Lab STAT Kidney replaced by transplant 09/07/2023 8:30 AM EST BK VIRUS DNA, QUANTITATIVE REAL-TIME PCR, BLOOD Lab STAT Kidney replaced by transplant Need for prophylactic immunotherapy 09/07/2023 8:30 AM EST Health Maintenance Due Date Last [...] Foot Exam 02/17/2024 02/16/2023, 08/26/2006 Albumin/Creatinine Ratio 08/10/20242 023, 07/12/2023, 06/14/2023, Additional history exists GFR 09/07/2024 09/07/2023, 11/0 05/2023, 07/22/2023, Additional history exists GARDASIL-HPV IMMUNIZATION SERIES Aged Out No longer eligible based on patient's age to complete this topic MENINGOCOCCAL (MENACTRA/MENVEO) Aged Out No longer eligible based on patient's age to complete this topic documented as of this encounter Medical Devices Implanted Type Area Bus Assistant Device Identifier Shelf Expiration Date Model / Serial / Lot Port Implant W/8f Poly Cath - [id number] Implanted:Qty : 1 on 05/12/2021 by Dong Ackerman DO at OR [facility] Right: Chest CR BARD : PERIPHERAL VASCULAR [id number] 08/02/2021 [id number] / / [id number] documented as of this encounter Procedures Procedure Name Priority Date/Time Associated Diagnosis Comments DIFFERENTIAL, AUTOMATED STAT 09/07/2023 8:30 AM EST [...] 8:30 AM EST) nRBCs 09/07/2023 9:06 AM EST [facility] 56-02 Reactive Lymphocytes Present(A ) None Seen 09/07/2023 9:06 AM EST [facility] 56-02 Blood Venous blood specimen / Unknown Central Line / Unknown 09/07/2023 8:30 AM EST 09/07/2023 8:46 AM EST Elder Vince Nevin DNP LAB BLOOD ORDERA BLES [facility] 56-[address] [place] [address] * (ABNORMAL) DIFFERENTIAL, AUTOMATED (09/07/2023 8:30 AM EST) WBC 5.06 4.00 - 10.80 K/uL 09/07/2023 9:06 AM EST [facility] 56- Neutrophils % 52.2 40.0 - 75.0 % 09/07/2023 9:06 AM [facility] 56- Lymphocytes % 29.6 18.0 - 42.0 % 09/07/2023 9:06 AM EST [facility] 56- Monocytes % 9.3 1.0 - 11.0 % 09/07/2023 9:06 AM EST [facility] 56- Eosinophils % 3.4 0.0 - 6.0 % 09/07/2023 9:06 AM EST [facility] 56-02 Basophils % 5.5(H) 0.0 - 2.0 % 09/07/2023 9:06 AM EST [facility] 56-02 Absolute Neutrophils 2.64 1.80 - 7.70 K/uL 09/07/2023 9:06 AM EST [facility] 56-02 Absolute Lymphocytes 1.50 1.00 - 4.80 K/ul 09/07/2023 9:06 AM [facility] 56-02 Absolute Monocytes 0.47 0.00 - 1.10 K/uL 09/07/2023 9:06 AM [facility] 56-02 Absolute Eosinophils 0.17 0.00 - 0.70 K/uL 09/07/2023 9:06 AM EST [facility] 56-02 Absolute Basophils 0.28(H) 0.00 - 0.20 K/uL 09/07/2023 9:06 AM [facility] 56-02 Blood Venous blood specimen / Unknown Central Line / Unknown 09/07/2023 8:30 AM EST 09/07/2023 8:46 AM EST Elder Rooney DNP LAB BLOOD ORDERA BLES [facility] 56- [address] [place] [address] * (ABNORMAL) CBC (09/07/2023 8:30 AM EST) WBC 5.06 4.00 - 10.80 K/uL 09/07/2023 9:06 AM EST [facility] 56 RBC 4.74 4.50 - 5.25 M/uL 09/07/2023 9:[address] HGB 13.8(L) 14.0 - 16.8 g/dL 09/07/2023 9:[address] HCT 42.4 40.0 - 48.4 % 09/07/2023 9:06 AM [facility] 56 MCV 89.5 82.0 - 99.5 fL 09/07/2023 9:06 AM [facility] 56 MCH 29.1 27.0 - 34.0 pg 09/07/2023 9:06 AM [facility] 56 MCHC 32.5 32.0 - 36.0 g/dL 09/07/2023 9:06 AM [facility] 56 RDW 14.4 11.5 - 15.5 % 09/07/2023 9:06 AM [facility] 56 PLT 238 140 - 400 K/uL 09/07/2023 9:06 AM [facility] 56 MPV 10.2 6.6 - 11.1 fL 09/07/2023 9:06 AM [facility] 56 Blood Venous blood specimen / Unknown Central Line / Unknown 09/07/2023 8:30 AM EST 09/07/2023 8:46 AM EST Elder Rooney DNP LAB BLOOD ORDERA BLES [facility] 56 [address] [place] [address] * (ABNORMAL) BASIC METABOLIC PANEL (09/07/2023 8:30 AM EST) BUN 23(H) 6 - 20 mg/dL 09/07/2023 9:08 AM EST [facility] 56 Creatinine 0.9 0.6 - 1.2 mg/dL 09/07/2023 9:[address] Estimated Glomerular Filtration Rate >90 >=60 mL/min 09/07/2023 9:08 AM [facility] 56 Comment:eGFR is calculated b ased on the CKD-EPI 2020 equation Sodium 138 135 - 146 mmol/L 09/07/2023 9:[address] Potassium 4.2 3.5 - 5.1 mmol/L 09/07/2023 9:[address] Chloride 103 98 - 107 mmol/L 09/07/2023 9:[address] CO2 26 22 - 32 mmol/L 09/07/2023 9:[address] Anion Gap 9 7 - 15 mmol/L 09/07/2023 9:[address] Glucose 159(H) 70 - 120 mg/dL 09/07/2023 9:[address] Calcium 10.4(H) 8.4 - 10.2 mg/dL 09/07/2023 9:08 AM [facility] 56 Blood Venous blood specimen / Unknown Central Line / Unknown 09/07/2023 8:30 AM EST 09/07/2023 8:46 AM EST Elder Rooney DNP LAB BLOOD ORDERA BLES [address] [place] [address] * MAGNESIUM (09/07/2023 8:30 AM EST) Magnesium 1.9 1.5 - 2.6 mg/dL 09/07/2023 9:08 AM [facility] 56 Blood Venous blood specimen / Unknown Central Line / Unknown 09/07/2023 8:30 AM EST 09/07/2023 8:46 AM EST Elder Clarke Nevin DNP LAB BLOOD ORDERA BLES [facility] 56-[address] [place] [address] documented in this encounter Visit Diagnoses Diagnosis Kidney replaced by transplant- Primary Need for prophylactic immunotherapy documented in this encounter Administered Medications Active Administered Medications - up to 3 most recent administrations Medication Order MAR Action Action Date Dose Rate Site diphenhydrAMINE (Benadryl) inj 50 mg 50 mg, IV Push, ONCE PRN Other, Hypersensitivity Reaction, Starting on Tue09/07/23 at 0832, Until Tue09/08/23 at 0831, For 24 hours EPINEPHrine 1 MG/ML inj 0.3 mg 0.3 mg, Intramuscular, ONCE PRN Other, Hypersensitivity Reaction or Anaphylaxis, Starting on Tue09/07/23 at 0832, Until Nury 09/08/23 at 0831, For 24 hours hEParin 100 UNIT/ML Lock Flush inj 500 Units 500 Units (5 mL), IV Lock, PRN Other, IV Flush, Starting on Tue09/07/23 at 0832, Until Nury 09/08/23 at 0831, For 24 hours, Do not flush if lock, PICC, or central line not in place; IV infusing or unable to flush. Given 09/07/2023 10:22 AM EST 500 Units Hydrocortisone Sod Suc (PF) (Solu-Cortef) inj 100 mg 100 mg, IV Push, ONCE PRN Other, Hypersensitivity Reaction, Starting on Tue09/07/23 at 0832, Until Nury 09/08/23 at 0831, For 24 hours NSS infusion 500 mL, Intravenous, at 10 mL/hr, CONTINUOUS, Starting on Tue09/07/23 at 0945, Until Tue09/07/23 at 1944 Start Infusion 09/07/2023 8:30 AM EST 500 mL 10 mL/hr sodium chloride 0.9 % flush/inj 10 mL 10 mL, IV Push, PRN Other, IV Flush, Starting on Tue09/07/23 at 0832, Until Nury 09/08/23 at 0831, For 24 hours, Do not flush if lock, PICC, or central line not in place; IV infusing or unable to flush. Given 09/07/2023 10:22 AM EST 10 mL Inactive Administered Medications [...] an infusion set and a sterile, nonpyrogenic, jof-klvcwqt-rfhheao filter (pore size of 0.2 to 1.2 micrometer) Start Infusion 09/07/2023 9:45 AM EST 575 mg 200 mL/hr documented in this encounter Advance Directives Latest Code Status on File Code Status Date Activated Date Inactivated Comments Full Code 09/11/2019 5:08 PM 09/14/2019 6:51 PM Natacha s order reflects the patients wishes and were consensually agreed upon. Code Status History Code Status Date Activated Date Inactivated Comments Full Code 09/25/2018 5:03 AM 09/28/2018 10:11 PM T his order reflects the patients wishes and were consensually agreed upon. Question Answer Comments Discussion of Advance Directives occurred with: Not Discussed Does the patient have a Living Will? No Does the patient have Health Care Power of Baker Operator Automatic? No Full Code 09/24/2018 3:28 PM 09/25/2018 5:03 AM Natacha s order reflects the patients wishes and were consensually agreed upon. Question Answer Comments Discussion of Advance Directives occurred with: Not Discussed Does the patient have a Living Will? No Does the patient have Health Care Power of Baker Operator Automatic? No Care Teams Specimen Collector Relationship Specialty Start Date End Date Rubio Dias MD [address] [place] [address] [place] [address] PCP - General Family Medicine 12/22/22 documented as of this encounter
--- OUTSIDE RECORDS SUMMARY | 2023-12-08 20:04 | External Medical Summary ---
Author Name Unknown Address Unknown Organization : Laboratory Report Ordering Provider Test Date Status TONY KRUEGER 10/05/2023 13:09:40 Final Observation Date Value Abnormality Reference (Units ) Status Source 10/05/2023 13:09:40 Whole Blood Final BK virus DNA 10/05/2023 13:09:40 Not Detected (copies/mL) Final BK virus DNA [Log #/volume] (viral load) in Specimen by PAULINE with probe detection 10/05/2023 13:09:40 Not Detected (Log cps/mL) Final Reference Range: Not Detecte d
This test was developed and its analytical performance
characteristics have been determined by [employer]
[place] It has
not been cleared or approved by the U.S. Food and Drug
Administration. This assay has been validated pursuant
to the CLIA regulations and is used for clinical
purposes.

Test Performed at:
[facility]
[address] [facility] [place] [address]
Mauricio Soriano M.D., Ph.D.,Director of Laboratories Performing Location
--- OUTSIDE RECORDS SUMMARY | 2023-12-08 20:04 | External Medical Summary | Summary of Care ---
Author Name Unknown Organization [facility] Address [address] [facility] [place] [address] Phone [phone] Care Team Providers Care Bridge Inspector Name Role Phone Rubio Dias MD Primary Care Provider [phone] Reason for Visit * Reason Onset Date Comments Appointment 09/14/2023 Encounter Details Date Type Department Care Team (Late st Contact Info) Description 09/14/2023 Telephone Hematology/Oncology [facility] [place] [address] [facility] [place] [address] Mike Pittman MD [address] [facility] [address] Appointment Allergies Active Allergy Reactions Criticality Noted [...] to Monthly infusion). Apply to [facility] site prior to Monthly infusion 30 [...] 0.4 mL 11 02/16/2023 Active Dexcom G6 Back Tacker Device Use as directed 1 Each 0 02/16/2023 Active Dexcom G6 Sensor Apply a new sensor every 10 days 9 Each 3 02/16/2023 Active Dexcom G6 Transmitter Use with [employer] continuous glucose sensor as directed by social work program coordinator 1 Each 4 02/16/2023 Active Mycophenolate Sodium [...] 10/05/2023 9:00 AM EST Hem/Onc Treatment Hematology/Oncology [address] [address] [place], Chair 10 Hem On[address] [address] 11/02/2023 8:00 AM EST Office Visit Transplant Clinic, [address] [address] Elder Rooney, [place] [address] [place] [address] 11/02/2023 8:30 AM EST Pharmacy Endocrinology, [address] [address] [place], Pharmacist Endocrinology [address] [place] [address] 11/03/2023 9:00 AM EST Hem/Onc Treatment Hematology/Oncology Treatment, [address] [place] [address] Susan, Chair 10 Hem Onc Scen[address] [place] [address] 12/28/2023 3:40 PM EDT Office Visit Family Medicine [address] [place] [phone] Ivan Martinez MD [address] [place] [address] [place] [address] 03/20/2024 7:30 AM EDT Office Visit Endocrinology, [place] [address] [place] [address] Codi Cam PA-C [address] [place] [address] Health Maintenance Due Date Last Done Comments [...] 07/12/2023, Additional history exists GFR 09/07/2024 09/07/2023, 11/0 05/2023, 07/22/2023, Additional history exists GARDASIL-HPV IMMUNIZATION SERIES Aged Out No longer eligible based on patient's age to complete this topic MENINGOCOCCAL (MENACTRA/MENVEO) Aged Out No longer eligible based on patient's age to complete this topic documented as of this encounter Medical Devices Implanted Type Area Campaign Worker Device Identifier Shelf Expiration Date Model / Serial / Lot Port Implant W/8f Poly Cath - [id number] Implanted:Qty : 1 on 05/12/2021 by Dong Ackerman, at OR [facility] Right: Chest CR BARD : PERIPHERAL VASCULAR [id number] 08/02/2021 [id number] / / [id number] documented as of this encounter Advance Directives [...] the patient have Health Care Power of Insect Control Aide? No Full Code 09/24/2018 3:28 PM 09/25/2018 5:03 AM Thi s order reflects the patients wishes and were consensually agreed upon. Question Answer Comments Discussion of Advance Directives occurred with: Not Discussed Does the patient have a Living Will? No Does the patient have Health Care Power of Insect Control Aide? No Care Teams Bridge Inspector Relationship Specialty Start Date End Date Rubio Dias MD [address] [place] [address] [place] [phone] PCP - General Family Medicine 12/22/22 documented as of this encounter
--- OUTSIDE RECORDS SUMMARY | 2023-12-08 20:04 | External Medical Summary | Summary of Care ---
Author Name Unknown Organization [facility] Address [address] [facility] [place] [address] Phone [phone] Care Team Providers Care Clerical Warehouse Worker Name Role Phone Rubio Dias MD Primary Care Provider Reason for Visit * Reason Onset Date Comments Appointment 09/14/2023 Encounter Details Date Type Department Care Team (Late st Contact Info) Description 09/14/2023 Telephone Hematology/Oncology [facility] [place] 200 [facility] [place] [address] Mike Pittman MD [address] [facility] [address] Appointment Allergies Active Allergy Reactions Criticality Noted Date Comments Bee Venom 04/03/2002 Ondansetron Hcl Edema Other 07/12/2017 All over swelling documented as of this encounter (statuses as of 09/19/2023) Medications Medication Sig Dispensed Refills Start Date [...] site prior to Monthly infusion). Apply to [facility] site prior to Monthly infusion 30 [...] 0.4 mL 11 02/16/2023 Active Dexcom G6 Bank Reconciliator Device Use as directed 1 Each 0 02/16/2023 Active Dexcom G6 Sensor Apply a new sensor every 10 days 9 Each 3 02/16/2023 Active Dexcom G6 Transmitter Use with [employer] continuous glucose sensor as directed by farmworker vegetable 1 Each 4 02/16/2023 Active Mycophenolate Sodium [...] as of this encounter (statuses as of 09/19/2023) Active Problems Problem Noted Date Diagnosed Date [...] as of this encounter (statuses as of 09/19/2023) Resolved Problems Problem Noted Date Diagnosed Date [...] as of this encounter (statuses as of 09/19/2023) Immunizations Name Administration Dates Next Due PPD [...] 9:00 AM EST Hem/Onc Treatment Hematology/Oncology Treatment, [place] [address] [place] [address] Susan, Chair 10 Hem Onc Scenery 200 [facility] [place] [address] 11/02/2023 8:00 AM EST Office Visit Transplant Clinic, [place] [address] [place], [place] [phone] Elder Rooney DNP [facility] [address] [place], [place] [phone] 11/02/2023 8:30 AM EST Pharmacy Endocrinology, [address] [phone] [place], Pharmacist Endocrinology [facility] [address] [place], [place] [phone] 11/03/2023 9:00 AM EST Hem/Onc Treatment Hematology/Oncology Treatment, [place] 200 [place] [address] Susan, Chair 10 Hem [facility]c [facility] 200 [facility] [place] [address] 12/28/2023 3:40 PM EDT Office Visit Family Medicine [address] [phone] Ivan [place] MD [address] [place] [address] [place] [address] 03/20/2024 7:30 AM EDT Office Visit Endocrinology, [address] [phone] Codi Cam PA-C [address] [place] [address] [phone] (work) Health Maintenance Due Date Last Done Comments [...] this encounter Medical Devices Implanted Type Area Forensic Social Worker Device Identifier Shelf Expiration Date Model / Serial / Lot Port Implant W/8f Poly Cath - [id number] Implanted:Qty : 1 on 05/12/2021 by Dong Ackerman, DO at OR [facility] Right: Chest CR BARD : PERIPHERAL VASCULAR [id number] 08/02/2021 [id number] / / [id number] documented as of this encounter Advance Directives [...] the patient have Health Care Power of Funeral Arranger? No Full Code 09/24/2018 3:28 PM 09/25/2018 5:03 AM Thi s order reflects the patients wishes and were consensually agreed upon. Question Answer Comments Discussion of Advance Directives occurred with: Not Discussed Does the patient have a Living Will? No Does the patient have Health Care Power of Funeral Arranger? No Care Teams Clerical Warehouse Worker Relationship Specialty Start Date End Date Rubio Dias MD [address] [place] [address] [place] [address] PCP - General Family Medicine 12/22/22 documented as of this encounter
--- OUTSIDE RECORDS SUMMARY | 2023-12-08 20:04 | External Medical Summary ---
Author Name Unknown Address Unknown Organization K09:[facility] [place] [place] [address] Laboratory Report Ordering Provider Test Date Status TONY KRUEGER 10/05/2023 13:09:40 Final Observation Date Value Abnormality Reference (Units ) Status WBC, Total 10/05/2023 13:09:40 5.79 4.00-10.8 0 (K/uL) Final RBC 10/05/2023 13:09:40 4.94 4.50-5.25 (M/uL) Final Hemoglobin 10/05/2023 13:09:40 14.3 14.0-16.8 (g/dL) Final HCT 10/05/2023 13:09:40 43.9 40.0-48.4 (%) Final MCV 10/05/2023 13:09:40 88.9 82.0-99.5 (fL) Final MCH 10/05/2023 13:09:40 28.9 27.0-34.0 (pg) Final MCHC 10/05/2023 13:09:40 32.6 32.0-36.0 (g/dL) Final RDW 10/05/2023 13:09:40 14.4 11.5-15.5 (%) Final Platelets 10/05/2023 13:09:40 250 140-400 (K /uL) Final MPV 10/05/2023 13:09:40 10.5 6.6-11.1 ( fL) Final Performing Location [facility] [place] [address]
--- OUTSIDE RECORDS SUMMARY | 2023-12-08 20:04 | External Medical Summary | Summary of Care ---
Author Name Unknown Organization [facility] Address [address] [place] [address] Phone [phone] Care Team Providers Care Manager Nursing Home Name Role Phone Rubio Dias MD Primary Care Provider Encounter Details Date Type Department Care Team (Late st Contact Info) Description 10/11/2023 Orders Only Transplant Clinic, [place] [id number] Michael Wild, [place] [address] Kidney replaced by transplant*; Need for prophylactic [...] 0.4 mL 11 02/16/2023 Active Dexcom G6 Pick Pulling Machine Tender Device Use as directed 1 Each 0 02/16/2023 Active Dexcom G6 Sensor Apply a new sensor every 10 days 9 Each 3 02/16/2023 Active Dexcom G6 Transmitter Use with dex com continuous glucose sensor as directed by product expert 1 Each 4 02/16/2023 Active Tamsulosin HCl [...] before bedtime. 360 Tablet 3 10/11/2023 Active documented as of this encounter (statuses [...] 8:00 AM EST Office Visit Transplant Clinic, [facility] [address] [place] [address] Elder Rooney, [facility] [address] [place] [address] 11/02/2023 8:30 AM EST Pharmacy Endocrinology, [facility] [address] [place] [address] [facility], Pharmacist Endocrinology [address] [place] [address] 11/03/2023 9:00 AM EST Hem/Onc Treatment Hematology/Oncology Treatment, [place] [address] [place] [address] Susan, Chair 10 Hem Onc [place] [address] [place] [address] 12/28/2023 3:40 PM EDT Office Visit Family Medicine [address] [phone] Ivan Martinez MD [address] [place] [address] [place] [address] 03/20/2024 7:30 AM EDT Office Visit Endocrinology, [facility] [address] [place] [address] Codi Cam PA-C [address] [place], [place] [phone] Health Maintenance Due Date Last Done Comments [...] 08/10/2023, Additional history exists GFR 10/05/2024 10/05/2023, 12/03/2023, 08/10/2023, Additional history exists GARDASIL-HPV IMMUNIZATION SERIES Aged Out No longer eligible based on patient's age to complete this topic MENINGOCOCCAL (MENACTRA/MENVEO) Aged Out No longer eligible based on patient's age to complete this topic documented as of this encounter Medical Devices Implanted Type Area Mission Manager Device Identifier Shelf Expiration Date Model / Serial / Lot Port Implant W/8f Poly Cath - [id number] Implanted:Qty : 1 on 05/12/2021 by Dong Ackerman, DO at [facility] Right: Chest CR BARD : PERIPHERAL VASCULAR [id number] 08/02/2021 [id number] / / [id number] documented as of this encounter Visit Diagnoses [...] the patient have Health Care Power of Costume Mistress? No Full Code 09/24/2018 3:28 PM 09/25/2018 5:03 AM Thi s order reflects the patients wishes and were consensually agreed upon. Question Answer Comments Discussion of Advance Directives occurred with: Not Discussed Does the patient have a Living Will? No Does the patient have Health Care Power of Costume Mistress? No Care Teams Manager Nursing Home Relationship Specialty Start Date End Date Rubio Dias MD [address] [place] [address] [place] [address] PCP - General Family Medicine 12/22/22 documented as of this encounter
--- OUTSIDE RECORDS SUMMARY | 2023-12-08 20:04 | External Medical Summary | Summary of Care ---
Author Name Unknown Organization [facility] Address [address] [facility] [place] [address] Phone [phone] Care Team Providers Care Secondary Art Teacher Name Role Phone Rubio Dias MD Primary Care Provider Reason for Visit * Reason Onset Date Comments Appointment 09/14/2023 Encounter Details Date Type Department Care Team (Late st Contact Info) Description 09/14/2023 Telephone Hematology/Oncology [facility] Susan [place] [address] [facility] [place] [address] Mike [place] MD [address] [facility] [address] Appointment Allergies Active Allergy Reactions Criticality Noted Date Comments Bee Venom 04/03/2002 Ondansetron Hcl Edema Other 07/12/2017 All over swelling documented as of this encounter (statuses as of 09/15/2023) Medications Medication Sig Dispensed Refills Start Date [...] site prior to Monthly infusion). [facility] site prior to Monthly [...] 0.4 mL 11 02/16/2023 Active Dexcom G6 Migrant Leader Device Use as directed 1 Each 0 02/16/2023 Active Dexcom G6 Sensor Apply a new sensor every 10 days 9 Each 3 02/16/2023 Active Dexcom G6 Transmitter Use with HowAboutWe continuous glucose sensor as directed by device processing engineer 1 Each 4 02/16/2023 Active Mycophenolate Sodium [...] as of this encounter (statuses as of 09/15/2023) Active Problems Problem Noted Date Diagnosed Date [...] as of this encounter (statuses as of 09/15/2023) Resolved Problems Problem Noted Date Diagnosed Date [...] as of this encounter (statuses as of 09/15/2023) Immunizations Name Administration Dates Next Due PPD [...] 9:00 AM EST Hem/Onc Treatment Hematology/Oncology Treatment, [place] [address] [place] [address] Susan, Chair [address] Hem [address] [place] [address] 11/02/2023 8:00 AM EST Office Visit Transplant Clinic, [place] [address] [place], [place] [phone] Elder Rooney, [facility] [address] [place], [place] [phone] 11/02/2023 8:30 AM EST Pharmacy Endocrinology, [address] [phone] [place], Pharmacist Endocrinology [facility] [address] [place], [place] [id number] 11/03/2023 9:00 AM EST Hem/Onc Treatment Hematology/Oncology Treatment, [address] [place] [address] Susan, Chair 10 Hem Onc [address] [place] [address] 12/28/2023 3:40 PM EDT Office Visit Family [address] [phone] Ivan Martinez MD [address] [place] [address] [place] [address] 03/20/2024 7:30 AM EDT Office Visit Endocrinology, [place] [address] [place], [place] [phone] Codi Cam PA-C [address] [place] [address] Health Maintenance Due Date Last [...] this encounter Medical Devices Implanted Type Area Slab Miller Operator Device Identifier Shelf Expiration Date Model / Serial / Lot Port Implant W/8f Poly Cath - [id number] Implanted:Qty : 1 on 05/12/2021 by Dong Ackerman, at OR [facility] Right: Chest CR BARD : PERIPHERAL VASCULAR [id number] 08/02/2021 [id number] / / [id number] documented as of this encounter Advance Directives [...] the patient have Health Care Power of Register Of Deeds? No Full Code 09/24/2018 3:28 PM 09/25/2018 5:03 AM Thi s order reflects the patients wishes and were consensually agreed upon. Question Answer Comments Discussion of Advance Directives occurred with: Not Discussed Does the patient have a Living Will? No Does the patient have Health Care Power of Register Of Deeds? No Care Teams Secondary Art Teacher Relationship Specialty Start Date End Date Rubio Dias MD [address] [place] [address] [place] [phone] PCP - General Family Medicine 12/22/22 documented as of this encounter
--- OUTSIDE RECORDS SUMMARY | 2023-12-08 20:04 | External Medical Summary | Summary of Care ---
Author Name Unknown Organization [facility] Address [address] [place] [address] Phone [phone] Care Team Providers Care Operator/Assistant Foreman Name Role Phone Rubio Dias MD Primary Care Provider [phone] Encounter Details Date Type Department Care Team (Late st Contact Info) Description 10/05/2023 Telephone Hematology/Oncology Treatment, [place] [address] [place] [address] Elder Rooney, DNP [address] [place] [address] Allergies Active Allergy Reactions Criticality Noted Date [...] 0.4 mL 11 02/16/2023 Active Dexcom G6 Forest Manager Device Use as directed 1 Each 0 02/16/2023 Active Dexcom G6 Sensor Apply a new sensor every 10 days 9 Each 3 02/16/2023 Active Dexcom G6 Transmitter Use with dex com continuous glucose sensor as directed by manager android 1 Each 4 02/16/2023 Active Mycophenolate Sodium [...] C6-7 spinous process fracture Thoracic spine fracture 09/12/2019/11/2022 Overview: Age indeterminate T1 and T3 superior [...] Miscellaneous Notes * Telephone Encounter - Perla Hernandez RN - 10/05/2023 11:20 AM EST Per Sabra Crawford, patient is ok for infusion with auth. Called patient who verbalized understanding. * Telephone Encounter - Perla Hernandez RN - 10/05/2023 10:15 AM EST Called patient. He states that his insurance has not changed- he still has the same medicare/ medical disability policy and [facility] supplement. The only change that occurred is that he added part D to his medicare, but this did not change his ID number. Spoke to Sabra- she will call medicare to verify he is still active as he is showing as inactivein our system. * Telephone Encounter - Karine Cerna RN - 10/05/2023 8:34 AM EST Patient is scheduled for Nulojix on 10/05/2023, ordered by Dr. Rooney. Precert referral has /no longer valid. Precert: please obtain new precert and enter referral. Ordering providers office: if precert referral is not back by 3pm the business day prior to treatment, appointment will need to be cancelled and rescheduled once referral is entered. Thanks! Scheduling: There is no updated insurance on file for the new year. Please reach out to patient to update patient's insurance in chart to facilitate patient being able to stay on schedule with Nulojix infusions. documented in this encounter Plan of Treatment Upcoming Encounters Date Type Department Care Team (Late st Contact Info) Description 10/05/2023 1:00 PM EST Hem/Onc Treatment Hematology/Oncology Treatment, [address] [address] Susan, Chair [address] Hem [address] [place] [address] 11/02/2023 8:00 AM EST Office Visit Transplant Clinic, [address] [address] Elder Rooney, [facility] [address] [place] [address] 11/02/2023 8:30 AM EST Pharmacy Endocrinology, [place] [address] [place] [address] [place], Pharmacist Endocrinology [facility] [place] [address] 11/03/2023 9:00 AM EST Hem/Onc Treatment Hematology/Oncology Treatment, [address] [address] Susan, Chair 10 Hem Onc Scen[place] [address] [facility] [place] [address] 12/28/2023 3:40 PM EDT Office Visit Family Medicine [address] [place] [phone] Ivan Martinez MD [address] [place] [address] [place] [address] 03/20/2024 7:30 AM EDT Office Visit Endocrinology, [place] [address] [place] [address] Codi Cam PA-C [address] [place] [address] Health Maintenance Due Date Last Done Comments [...] this encounter Medical Devices Implanted Type Area Bleach Machine Operator Device Identifier Shelf Expiration Date Model / Serial / Lot Port Implant W/8f Poly Cath - [id number] Implanted:Qty : 1 on 05/12/2021 by Dong Ackerman, DO at OR [facility] Right: Chest CR BARD : PERIPHERAL VASCULAR [id number] 08/02/2021 [id number] / / [id number] documented as of this encounter Advance Directives [...] the patient have Health Care Power of Veterinary Medicine Doctor? No Full Code 09/24/2018 3:28 PM 09/25/2018 5:03 AM Thi s order reflects the patients wishes and were consensually agreed upon. Question Answer Comments Discussion of Advance Directives occurred with: Not Discussed Does the patient have a Living Will? No Does the patient have Health Care Power of Veterinary Medicine Doctor? No Care Teams Operator/Assistant Foreman Relationship Specialty Start Date End Date Rubio Dias MD [address] [place] [address] [place] [address] PCP - General Family Medicine 12/22/22 documented as of this encounter
--- OUTSIDE RECORDS SUMMARY | 2023-12-08 20:04 | External Medical Summary | Summary of Care ---
Author Name Unknown Organization [facility] Address [address] [facility] [place] [address] Phone [phone] Care Team Providers Care Manager Lighting Name Role Phone Rubio Dias MD Primary Care Provider Reason for Visit * Reason Onset Date Comments Appointment 09/14/2023 Encounter Details Date Type Department Care Team (Late st Contact Info) Description 09/14/2023 Telephone Hematology/Oncology [facility] Susan [place] [address] [facility] [place] [address] Mike [place] MD [address] [facility] [address] Appointment Allergies Active Allergy Reactions Criticality Noted Date Comments Bee Venom 04/03/2002 Ondansetron Hcl Edema Other 07/12/2017 All over swelling documented as of this encounter (statuses as of 09/14/2023) Medications Medication Sig Dispensed Refills Start Date [...] site prior to Monthly infusion). Apply to [facility] site prior to Monthly infusion 30 [...] 0.4 mL 11 02/16/2023 Active Dexcom G6 Manager Transportation Device Use as directed 1 Each 0 02/16/2023 Active Dexcom G6 Sensor Apply a new sensor every 10 days 9 Each 3 02/16/2023 Active Dexcom G6 Transmitter Use with Lolabox continuous glucose sensor as directed by frame nailer 1 Each 4 02/16/2023 Active Mycophenolate Sodium [...] as of this encounter (statuses as of 09/14/2023) Active Problems Problem Noted Date Diagnosed Date [...] as of this encounter (statuses as of 09/14/2023) Resolved Problems Problem Noted Date Diagnosed Date [...] as of this encounter (statuses as of 09/14/2023) Immunizations Name Administration Dates Next Due PPD [...] 9:00 AM EST Hem/Onc Treatment Hematology/Oncology Treatment, [place] [address] [place] [address] Susan, Chair 10 Hem Onc [address] [address] [facility] [address] 11/02/2023 8:00 AM EST Office Visit Transplant Clinic, [address] [address] Elder Rooney, DNP [address] [place] [address] 11/02/2023 8:30 AM EST Pharmacy Endocrinology, [place] [address] [place] [address] [place], Pharmacist Endocrinology [address] [place] [address] 11/03/2023 9:00 AM EST Hem/Onc Treatment Hematology/Oncology Treatment, [place] [address] [place] [address] Susan, Chair 10 Hem Onc Scenery [address] [place] [address] 12/28/2023 3:40 PM EDT Office Visit [address] [phone] Ivan Martinez MD [address] [place] [address] [place] [address] 03/20/2024 7:30 AM EDT Office Visit Endocrinology, [place] [address] [place] [address] Codi Cam PA-C [address] [place] [address] Health Maintenance Due Date Last Done Comments [...] this encounter Medical Devices Implanted Type Area Nursing Service Director Device Identifier Shelf Expiration Date Model / Serial / Lot Port Implant W/8f Poly Cath - [id number] Implanted:Qty : 1 on 05/12/2021 by Dong Ackerman, at OR [facility] Right: Chest CR BARD : PERIPHERAL VASCULAR [id number] 08/02/2021 [id number] / / [id number] documented as of this encounter Advance Directives [...] the patient have Health Care Power of Lan Support Specialist? No Full Code 09/24/2018 3:28 PM 09/25/2018 5:03 AM Thi s order reflects the patients wishes and were consensually agreed upon. Question Answer Comments Discussion of Advance Directives occurred with: Not Discussed Does the patient have a Living Will? No Does the patient have Health Care Power of Lan Support Specialist? No Care Teams Manager Lighting Relationship Specialty Start Date End Date Rubio Dias MD [address] [place] [address] [place] [phone] PCP - General Family Medicine 12/22/22 documented as of this encounter
--- OUTSIDE RECORDS SUMMARY | 2023-12-08 20:05 | External Medical Summary ---
Author Name Unknown Address Unknown Organization K01:LABORATORY [facility] [place] - [address] [facility] [address] Laboratory Report Ordering Provider Test Date Status XAVIER LIEBERMAN 08/10/2023 15:04:18 Final Observation Date Value Abnormality Reference (Units ) Status HbA1C 08/10/2023 15:04:18 11.2 Above high normal 4. 0-5.6 (%) Final The use of HbA1c to monitor glycemic status is based on normal hemoglobin and HbA composition. This test should not be used in patients with abnormal hemoglobin that affects the half life of the red blood cell or the in vivo glycation rates. Glucose, estimated average 08/10/2023 15:04:18 275 Above high normal <126 (mg/dL) Shaheed duenas Performing Location LABORATORY [facility] - [address] [facility] [address]
--- OUTSIDE RECORDS SUMMARY | 2023-12-08 20:05 | External Medical Summary | Summary of Care ---
Author Name Unknown Organization [facility] Address [address] [place] [address] Phone [phone] Care Team Providers Care X Ray Service Engineer Name Role Phone Rubio Dias MD Primary Care Provider [phone] Encounter Details Date Type Department Care Team (Latest Contact Info) Description 08/24/2023 8:30 AM EST [facility] [address], [place] [phone] Elder Rooney, [facility] [address], [place] [phone] Immunosuppressive management encounter following kidney transplant*; Type 2 diabetes mellitus with hemoglobin A1c goal of less than 7.0% ([facility]) Allergies Active Allergy Reactions Criticality Noted Date Comments Bee Venom 04/03/2002 Ondansetron Hcl Edema Other 07/12/2017 All over swelling documented as of this encounter (statuses as of 08/26/2023) Medications Medication Sig Dispensed Refills Start Date [...] site prior to Monthly infusion). Apply to [facility] site prior to Monthly infusion 30 g 0 09/14/2021 Active Aspirin EC 81 MG Oral Tablet Delayed ReleaseIndications :Kidney replaced by transplant,Type 2 diabetes mellitus with hemoglobin A1c goal of less than 7.0% ([facility]) Take 1 Tablet by mouth in the [...] 0.4 mL 11 02/16/2023 Active Dexcom G6 Claims Vice President Device Use as directed 1 Each 0 02/16/2023 Active Dexcom G6 Sensor Apply a new sensor every 10 days 9 Each 3 02/16/2023 Active Dexcom G6 Transmitter Use with dex [employer] continuous glucose sensor as directed by investigator cash shortage 1 Each 4 02/16/2023 Active Mycophenolate Sodium [...] as of this encounter (statuses as of 08/26/2023) Active Problems Problem Noted Date Diagnosed Date [...] as of this encounter (statuses as of 08/26/2023) Resolved Problems Problem Noted Date Diagnosed Date [...] as of this encounter (statuses as of 08/26/2023) Immunizations Name Administration Dates Next Due PPD 11/27/2014,07/18/2012 Pneumococcal Conjugate Vaccine, 7 Valent 012 Pneumococcal Polysaccharide PPV23 (Pneumovax) SEASONAL INFLUENZA, PF, 6 M & Above, IM , (FLULAVAL or FLUZONE) 06/14/2018 Seasonal Influenza, Quadrivalent, No Preserve, I M 08/14/2019 documented as of this encounter Social History Tobacco Use Types Packs/Day Years Used Date Smoking Tobacco: Never Smokeless Tobacco: Current Chew Tobacco Cessation:Ready to Q uit: Not Asked; Counseling Given: Not Answered Comments:One bag q two days Alcohol Use [...] Sign Reading Time Taken Comments Blood Pressure 112/59 08/24/2023 8:58 AM EST Pulse 71 08/24/2023 8:58 AM EST Temperature 36 C (96.8 F) 08/24/2023 8:58 AM EST Respiratory Rate - - Oxygen Saturation - - Inhaled Oxygen Concentration - - Weight 115.1 kg (253 lb 12.8 oz) 08/24/2023 8:58 AM EST Height - - Body Mass Index 31.72 08/24/2023 7:47 AM EST documented in this [...] as of this encounter Progress Notes * Elder Rooney, LIBERTAD - 08/26/2023 2:42 PM EST Images from the original note were not included. Post-Transplant Follow-up Subjective CHIEF COMPLAINT: Follow up, s/p kidney transplant HISTORY OF PRESENT ILLNESS: Ramesh Tamez is a 57 year old male who is s/p kidney transplantwith HCV+/KEN- organ, performed on 09/24/18 for HTN/DM. Donor Info: Transplant number: 1 Transplant date: 09/25/2018 Reason of ESRD: DM/HTN Dialysis vintage: 5 years Donor: 40 M, KDPI 79%; In Cr 1.4, ter cr -1.7, Peak cr 3.3. CIT 6 hrs 42 mins, WIT 37 mins. PHS increased risk donor, Hep C Ab+ve, KEN -ve Induction: [place] CMV: D-ve/R +ve EBV: D +ve/R +ve Reperfusion biopsy: n/a Hospital Course: Uncomplicated [place] events since transplant: Fell with neck fracture 09/11/19 Immunosuppression: Belatacept 5 mg/kg/month Myfortic - 360 mg BID Immunosuppressant Regimen: Transplant Medications Immunosuppressive Agents Disp Start End Mycophenolate Sodium 180 MG Oral Tablet Delayed Release (Myfortic) 360 Tablet 03/28/2023 -- Sig - Route: Take 360 mg by mouth in the morning and 360 mg before bedtime. - Oral Class: ePrescribing Notes to Pharmacy: DX code Z94.0, Transplant date 09/24/2018, PLEASE BILL MEDICARE PART B. D5W 5% SOLN 100 mL with belatacept 250 MG SOLR -- -- Sig - Route: Administer 5 mg/kg intravenously once. Induction then monthly - Intravenous Class: Historical Interval History: He reports doing well overall. A1c noted - was having issues with continuous glucose. He denies headache, fever/chills, cough, sob/das, CP, visual changes, abd symptoms (n/v/d/c), tremor. Physical Exam BP 112/59 (BP Site: Right Arm, BP Position: Sitting, BP Cuff Size: Large) | Pulse 71 | Temp 36 C (96.8 F) | Wt 115.1 kg (253 lb 12.8 oz) | BMI 31.72 kg/m | BSA 2.47 m Wt Readings from Last 3 Encounters: 08/24/23 115.1 kg (253 lb 12.8 oz) 08/24/23 114.8 kg (253 lb) 07/15/23 109.1 kg (240 lb 9.6 oz) General: well-appearing, NAD Pulmonary: Normal effort, resps unlabored Abdomen: soft, nontender, nondistended Lower extremities: No pedal edema, well-perfused Upper extremities: No tremors Neuro: Alert and oriented x3 Oropharynx: no signs of thrush Labs Lab Results Component Value Date WBC 5.87 08/10/2023 NEUTS 52.4 08/10/2023 HGB 13.3 (L) 08/10/2023 HCT 41.2 08/10/2023 PLT 228 08/10/2023 BUN 14 08/10/2023 CREAT 0.9 08/10/2023 EGFR >90 08/10/2023 NA 139 08/10/2023 POTASSIUM 4.3 08/10/2023 CA 9.9 08/10/2023 DAWSON 1.31 09/14/2019 MG 2.0 08/10/2023 GLUCOSE 53 (L) 08/10/2023 AGP 10 08/10/2023 CO2 25 08/10/2023 Lab Results Component Value Date TACROLIMUS <0.8 (L) 01/24/2023 TACROLIMUS <0.8 (L) 12/29/2022 TACROLIMUS <2.0 (L) 02/28/2019 Lab Results Component Value Date/Time CMV DNA PCR NOT DETECTED 10/09/2019 08:16 AM CMV DNA, QN PCR Not Detected 07/12/2023 08:49 AM CMV DNA, QN REAL TIME PCR Not Detected 07/12/2023 08:49 AM Lab Results Component Value Date BK VIRUS DNA, QN PCR Not Detected 08/10/2023 BK VIRUS DNA, QN PCR Not Detected 08/10/2023 BK VIRUS DNA, QN PCR Not Detected 07/12/2023 BK VIRUS DNA, QN PCR Not Detected 07/12/2023 BK VIRUS DNA, QN PCR Not Detected 06/14/2023 BK VIRUS DNA, QN PCR Not Detected 06/14/2023 Lab Results Component Value Date/Time ALBUMIN / CREATININE RATIO, URINE - [facility] 32 (H) 08/10/2023 04:57 PM ALBUMIN / CREATININE RATIO, URINE - [facility] <11 07/12/2023 11:04 AM ALBUMIN / CREATININE RATIO, URINE - [facility] <8 06/14/2023 10:32 AM ALBUMIN / CREATININE RATIO, URINE - [facility] <8 10/06/2020 01:16 PM ALBUMIN / CREATININE RATIO, URINE - [facility] <9 09/23/2020 10:31 AM ALBUMIN / CREATININE RATIO, URINE - [facility] 09/08/2020 03:11 PM Uninterpretable Albumin/Creatinine Ratio due to very low albumin and creatinine values. 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 His graft function is stable. Acute Concerns: None Renal/FEN: Renal allograft function is stable. Immunosuppression: Patient is not considered to be at increased immunologic risk. Tolerating IS regimen well. Symptoms/findings consistent with immunosuppressant toxicity: No. Current Immunosuppressant Regimen: Transplant Medications Immunosuppressive Agents Disp Start End Mycophenolate Sodium 180 MG Oral Tablet Delayed Release (Myfortic) 360 Tablet 03/28/2023 -- Sig - Route: Take 360 mg by mouth in the morning and 360 mg before bedtime. - Oral Class: ePrescribing Notes to Pharmacy: DX code Z94.0, Transplant date 09/24/2018, PLEASE BILL MEDICARE PART B. D5W 5% SOLN 100 mL with belatacept 250 MG SOLR -- -- Sig - Route: Administer 5 mg/kg intravenously once. Induction then monthly - Intravenous Class: Historical Changes in regimen made today: None, continue current regimen Routine Immunosuppressant Lab Monitoring Frequency: Lab frequency: Monthly. : The patient does not have a chronic indwelling ureteral stent or urinary device. Infectious Disease: Recipient is not high risk for CMV. Functional Status: 100 (Normal, no complaints, no evidence of disease.) Wrap-Up Disposition: Issues/concerns acute/urgent follow-up or additional workup: None Transplant Clinic Follow-up and routine lab schedule: Return in about 3 months (around 11/24/2023) for post-transplant follow-up, with me, labs monthly, ok to match w endocrine. Administrative: I spent a total of 45 minutes on the date of service in preparation, delivery, and documentation of the care provided to Ramesh Tamez excluding any time spent in the performance of separately billed services. Elder Rooney DNP, DOLLY Advanced Practitioner - Transplant and Liver Surgery documented in this encounter Plan of Treatment Upcoming Encounters Date Type Department Care Team (Late st Contact Info) Description 09/07/2023 9:00 AM EST Hem/Onc Treatment Hematology/Oncology Treatment, [place] [address] [place] [address] Susan, Chair 10 Hem Onc [address] [place] [facility] [place] [address] 11/02/2023 8:00 AM EST Office Visit Transplant Clinic, [place] [address] [place] [address] Elder Rooney, [facility] [address], [place] [phone] 11/02/2023 8:30 AM EST Pharmacy Endocrinology, [place] [address], [place] [phone] [employer], Pharmacist Endocrinology [address], [place] [phone] 12/28/2023 3:40 PM EDT Office Visit Family Medicine [address] [phone] Ivan Martinez MD [address] [place] [address] [place] [address] 03/20/2024 7:30 AM EDT Office Visit Endocrinology, [employer] [address], [place] [phone] Codi Cam PA-C [address] [place] [address] Health Maintenance Due Date Last [...] Foot Exam 02/17/2024 02/16/2023, 08/26/2006 Albumin/Creatinine Ratio 08/10/2024 023, 07/12/2023, 06/14/2023, Additional history exists GFR 08/10/2024 08/10/2023, 07/04, 07/22/2023, Additional history exists GARDASIL-HPV IMMUNIZATION SERIES Aged Out No longer eligible based on patient's age to complete this topic MENINGOCOCCAL (MENACTRA/MENVEO) Aged Out No longer eligible based on patient's age to complete this topic documented as of this encounter Medical Devices Implanted Type Area Washhouse Worker Device Identifier Shelf Expiration Date Model / Serial / Lot Port Implant W/8f Poly Cath - [id number] Implanted:Qty : 1 on 05/12/2021 by Dong Ackerman, DO at OR [facility] Right: Chest CR BARD : PERIPHERAL VASCULAR [id number] 08/02/2021 [id number] / / [id number] documented as of this encounter Visit Diagnoses Diagnosis Immunosuppressive management encounter following kidney transplant- Primary Encounter for long-term (current) use of other medications Type 2 diabetes mellitus with hemoglobin A1c goal of less than 7.0% (HCC) documented in this encounter Advance Directives [...] the patient have Health Care Power of Land Manager? No Full Code 09/24/2018 3:28 PM 09/25/2018 5:03 AM Thi s order reflects the patients wishes and were consensually agreed upon. Question Answer Comments Discussion of Advance Directives occurred with: Not Discussed Does the patient have a Living Will? No Does the patient have Health Care Power of Land Manager? No Care Teams X Ray Service Engineer Relationship Specialty Start Date End Date Rubio Dias MD [address] [place] [address] [place] [address] PCP - General Family Medicine 12/22/22 documented as of this encounter"
--- OUTSIDE RECORDS SUMMARY | 2023-12-08 20:05 | External Medical Summary | Summary of Care ---
Author Name Unknown Organization [facility] Address [address] [place] [address] Phone [phone] Care Team Providers Care Manager Freelance Name Role Phone Rubio Dias MD Primary Care Provider Encounter Details Date Type Department Care Team (Late st Contact Info) Description 08/26/2023 Telephone [facility], [place] [address], [place] [phone] [facility] [address], [place] [phone] Allergies Active Allergy Reactions Criticality Noted Date [...] 0.4 mL 11 02/16/2023 Active Dexcom G6 Cephalometric Analyst Device Use as directed 1 Each 0 02/16/2023 Active Dexcom G6 Sensor Apply a new sensor every 10 days 9 Each 3 02/16/2023 Active Dexcom G6 Transmitter Use with [employer] com continuous glucose sensor as directed by skills instructor 1 Each 4 02/16/2023 Active Mycophenolate Sodium [...] Telephone Encounter - Perla Doty RPh - 08/26/2023 3:09 PM EST Spoke with patient's , Delphine. Clarified next step to starting pump is to contact Finn Urias to schedule training. Also described by role within the care team. Patient's had no further questions. * Telephone Encounter - Isatu Booker RN - 08/26/2023 2:18 PM EST Pt was last seen by Codi Cam on 08/24/23 and instructed to open OmniPod box to activate need for training for use of insulin pump. Pt calling today for basal, bolus and "dr code" to input into pump to start using. They were under the impression they would be doing online training and would not have to come in for training. I did explain that they would receive training from [employer] technology trainer, Marah Urias. Marah Baig's number was provided to . Pt and confused as to why there is a pharmacy appointment 11/02/23 and wanted to go to pharmacist closer to home. Not sure if this is an option. Did mention video appointment, but state that their internet is not always the best. Explained pharmacist's role in care of diabetes management going forward, but still seemed unsure of why this appointment needs to be here in [place]. There are no pump settings in note that I can see. Are you able to reach out to Delphine Tamez () [phone] to clarify your role, please? documented in this encounter Plan of Treatment Upcoming Encounters Date Type Department Care Team (Late st Contact Info) Description 09/07/2023 9:00 AM EST Hem/Onc Treatment Hematology/Oncology Treatment, [address] [address] Susan, Chair [address] [address] 11/02/2023 8:00 AM EST Office Visit Transplant Clinic, [address] [address] Elder Rooney, [facility] [address] [place] [address] 11/02/2023 8:30 AM EST Pharmacy Endocrinology, [address] [address] [place], Pharmacist Endocrinology [address] [place] [address] 12/28/2023 3:40 PM EDT Office Visit Family Medicine [address] [phone] Ivan Martinez MD [address] [place] [address] [place] [address] 03/20/2024 7:30 AM EDT Office Visit Endocrinology, [place] [address] [place] [address] Codi Cam PA-C [address], [place] [phone] Health Maintenance Due Date Last Done Comments [...] this encounter Medical Devices Implanted Type Area Pipeline Construction Inspector Device Identifier Shelf Expiration Date Model / Serial / Lot Port Implant W/8f Poly Cath - [id number] Implanted:Qty : 1 on 05/12/2021 by Dong Ackerman, at OR [facility] Right: Chest CR BARD : PERIPHERAL VASCULAR [id number] 08/02/2021 [id number] / / [id number] documented as of this encounter Advance Directives [...] the patient have Health Care Power of Cancer Center Director? No Full Code 09/24/2018 3:28 PM 09/25/2018 5:03 AM Thi s order reflects the patients wishes and were consensually agreed upon. Question Answer Comments Discussion of Advance Directives occurred with: Not Discussed Does the patient have a Living Will? No Does the patient have Health Care Power of Cancer Center Director? No Care Teams Manager Freelance Relationship Specialty Start Date End Date Rubio Dias MD [address] [place] [address] [place] [phone] PCP - General Family Medicine 12/22/22 documented as of this encounter
--- OUTSIDE RECORDS SUMMARY | 2023-12-08 20:05 | External Medical Summary ---
Author Name Unknown Address Unknown Organization K09:[facility] [place] [place] [address] Laboratory Report Ordering Provider Test Date Status TONY KRUEGER 09/07/2023 08:30:54 Final Observation Date Value Abnormality Reference (Units ) Status Nucleated erythrocytes/100 leukocytes [Ratio] in Blood by Automated count 09/07/2023 08:30:54 Final Variant lymphocytes [Presence] in Blood by Light microscopy 09/07/2023 08:30:54 Present Abnormal None Seen Final Performing Location [facility] [place] [place] [address]
--- OUTSIDE RECORDS SUMMARY | 2023-12-08 20:05 | External Medical Summary | Summary of Care ---
Author Name Unknown Organization [facility] Address [address] [facility] [address] Phone [phone] Care Team Providers Care Precision Mechanical Instrument Maker Name Role Phone Rubio Dias MD Primary Care Provider [phone] Reason for Visit * Reason Onset Date Comments Order Request 07/15/2023 Encounter Details Date Type Department Care Team Description 07/15/2023 Telephone Family Medicine [address] [phone] Rubio Dias MD [address] [place] [address] [place] [id number] Order Request Allergies Active Allergy Reactions Severity Noted Date Comments Bee Venom 04/03/2002 Ondansetron Hcl Edema Other 07/12/2017 All over swelling documented as of this encounter (statuses as of 07/20/2023) Medications Medication Sig Dispensed Refills Start Date [...] site prior to [facility] 30 g 0 09/14/2021 Active Aspirin EC 81 MG Oral Tablet Delayed ReleaseIndications :Kidney replaced by transplant,Type 2 diabetes mellitus with hemoglobin A1c goal of less than 7.0% ([facility]) Take 1 Tablet by mouth in the [...] suspected hypoglycemia 0.4 mL 11 02/16/2023 Active HumaLOG 100 UNIT/ML Subcutaneous Solution Use to fill Omnipod with 200 units every 2 days. E11.9 and Z96.41 30 mL 11 02/16/2023 Active Dexcom G6 Security Risk Analyst Device Use as directed 1 Each 0 02/16/2023 Active Dexcom G6 Sensor Apply a new sensor every 10 days 9 Each 3 02/16/2023 Active Dexcom G6 Transmitter Use with dex com continuous glucose sensor as directed by outbound sales representative 1 Each 4 02/16/2023 Active Mycophenolate Sodium [...] EVERY DAY 90 Capsule 3 05/03/2023 Active Pregabalin 150 MG Oral Capsule (Lyrica) TAKE ONE CAPSULE BY MOUTH ONE TIME DAILY IN THE EVENING 90 Capsule 1 06/28/2023 Active documented as of this encounter (statuses as of 07/20/2023) Active Problems Problem Noted Date Charcot's joint of right foot 02/16/2023 Immunosuppressive management encounter f ollowing kidney transplant 02/17/2021 Need for prophylactic immunotherapy 08/04 Last Assessment & Plan: Tolerating IS regimen well. Belatacept - 5 mg/kg/month Myfortic - 360 mg bid Erythrocytosis 06/15/2019 Kidney replaced by transplant 10/20/2018 Last Assessment & Plan: Doing well. Cr 1.1, stable. 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 Type 2 diabetes mellitus with hemoglobin A1c [...] as of this encounter (statuses as of 07/20/2023) Resolved Problems Problem Noted Date Resolved Date Syncope and collapse 09/12/2019 11/04/2022 Overview: Possible Cardiac enzymes elevated 09/12/2019 023 Multiple closed fractures of cervical vertebrae 09/12/2019 11/04/2022 Overview: C3 bilateral pedicle and body fracture, C6-7 spinous process fracture Thoracic spine fracture 09/12/2019 11/04/19 23 Overview: Age indeterminate T1 and T3 superior endplate fx ESRD (end stage renal disease) on dialysis 09/2909/29/2018 Pre-transplant evaluation for ESRD (end stage re nal disease) 11/15/2012 11/04/2022 documented as of this encounter (statuses as of 07/20/2023) Immunizations Name Administration Dates Next Due PPD [...] drink = 0.6 oz pur e alcohol) Alcohol Habits Answer Date Recorded How often do you have a drink containing alcohol ? Never 09/12/2019 How many drinks containing a lcohol do you have on a typical day when you are drinking? Not asked How often do you have six or more drinks on one occasion? Not asked Sex Assigned at Date Recorded Not on file Job Start Date Occupation [...] or making decisions? (5 years old or older No 09/11/2019 documented as of this encounter Miscellaneous Notes * Telephone Encounter - Kaleigh Lilly LPN - 07/20/2023 10:56 AM EDT Pt was seen by Shana. * Telephone Encounter - MATT Gr - 07/15/2023 10:01 AM EDT An order was requested for this patient. Name of Requesting Provider: Pilgram Order Requested: Keflex and Doxycycline refills Diagnosis/Reason for Request: Pt calling for refills for wound healing- initial ordered 06/14/23 If order request is for Mammogram: Is the patient having any breast symptoms? N/A Is there a chance of ? N/A Has the patient had any breast problems in the past? NA What location AND department does the patient wish to have their order completed at? [facility] Fax Number, if applicable: na Call Back Number: [phone] If the caller is not a current patient, please advise the patient to call their current PCP to havethe order's prior to being seen in our office. The patient was informed that our providers would not order anything (medication, labs, etc.) prior to being seen. documented in this encounter Plan of Treatment Upcoming Encounters Date Type Specialty Care Team Description 08/09/2023 Hem/Onc Treatment Hematology [place] [place], Chair 10 Hem Onc Sc[address] [place], [place] [address] 08/24/2023 Office Visit Endocrinology Codi Cam, [facility] [address], [place] [phone] 08/24/2023 Office Visit Transplant Clinic Elder Rooney DNP [address] [place] [address] 12/28/2023 Office Visit Family Medicine Ivan Martinez MD [address] [place] [address] [place] [address] Health Maintenance Due Date Last Done Comments [...] 64 Years) (2 - PCV) 06/03/2014 06/03/2013 DIABETES-EYE EXAM 01/05/2017 01/06/2016, , 01/06/2016, Additional history exists Influenza Vaccine (FLU shot) (#1) 2023 08/14/2019, 06/30/2018, 06/14/2018, Additional history exists HbA1c 08/24/2023 02/21/2023, 01/31, 11/03/2022, Additional history exists Diabetic Foot Exam 02/17/2024 02/16/2023, 08/26/2006 Albumin/Creatinine Ratio 07/12/2024 023, 06/14/2023, 04/19/2023, Additional history exists GFR 07/12/2024 07/12/2023, 06/03, 05/20/2023, Additional history exists GARDASIL-HPV IMMUNIZATION SERIES Aged Out No longer eligible based on patient's age to complete this topic MENINGOCOCCAL (MENACTRA/MENVEO) Aged Out No longer eligible based on patient's age to complete this topic documented as of this encounter Medical Devices Implanted Type Area Tierce Filler Device Identifier Shelf Expiration Date Model / Serial / Lot Port Implant W/8f Poly Cath - [id number] Implanted:Qty : 1 on 05/12/2021 by Dong Ackerman, at OR [facility] Right: Chest CR BARD : PERIPHERAL VASCULAR [id number] 08/02/2021 [id number] / / [id number] documented as of this encounter Advance Directives Latest Code Status on File Code Status Date Activated Date Inactivated Comments Full Code 09/11/2019 5:08 PM 09/14/2019 6:51 PM Th is order reflects the patients [...] the patient have Health Care Power of Sales Ambassador? No Full Code 09/24/2018 3:28 PM 09/25/2018 5:03 AM Thi s order reflects the patients wishes and were consensually agreed upon. Question Answer Comments Discussion of Advance Directives occurred with: Not Discussed Does the patient have a Living Will? No Does the patient have Health Care Power of Sales Ambassador? No Care Teams Precision Mechanical Instrument Maker Relationship Specialty Start Date End Date Rubio Dias MD [address] [place] [address] [place] [address] PCP - General Family Medicine 12/22/22 documented as of this encounter
--- OUTSIDE RECORDS SUMMARY | 2023-12-08 20:05 | External Medical Summary ---
Author Name Unknown Address Unknown Organization [id number][facility] [place] [place] [address] Laboratory Report Ordering Provider Test Date Status TONY KRUEGER 08/10/2023 15:04:18 Final Observation Date Value Abnormality Reference (Units ) Status BUN 08/10/2023 15:04:18 14 6-20 (mg/dL) Final Creatinine 08/10/2023 15:04:18 0.9 0.6-1.2 (mg/dL) Final Glomerular filtration rate/1.73 sq M.predicted [Volume Rate/Area] in Serum, Plasma or Blood by Creatinine-based formula (CKD-EPI) 08/10/2023 15:04:18 >90 >=60 (mL/min) Final eGFR is calculated based on the CKD-EPI 2020 equation SODIUM 08/10/2023 15:04:18 139 135-146 (m mol/L) Final Potassium 08/10/2023 15:04:18 4.3 3.5-5.1 (m mol/L) Final Cl 08/10/2023 15:04:18 104 98-107 (mm ol/L) Final CO2 08/10/2023 15:04:18 25 22-32 (mmo l/L) Final Anion gap 08/10/2023 15:04:18 10 7-15 (mmol /L) Final Glucose 08/10/2023 15:04:18 53 Below low normal 70- 120 (mg/dL) Final Calcium 08/10/2023 15:04:18 9.9 8.4-10.2 ( mg/dL) Final Performing Location [facility] [place] [address]
--- OUTSIDE RECORDS SUMMARY | 2023-12-08 20:05 | External Medical Summary ---
Author Name Unknown Address Unknown Organization [id number][facility] [place] [address] Laboratory Report Ordering Provider Test Date Status TONY KRUEGER 08/10/2023 15:04:18 Final Observation Date Value Abnormality Reference (Units ) Status SYNC LEUKOCYTES IN BLOOD BY AUTOMATED COUNT 08/10/2023 15:04:18 5.87 4.00-10.80 (K/uL) Final Segs 08/10/2023 15:04:18 52.4 40.0-75.0 (%) Final Lymphs % 08/10/2023 15:04:18 29.0 18.0-42.0 (%) Final Monos 08/10/2023 15:04:18 10.1 1.0-11.0 (%) Final Eosinophils 08/10/2023 15:04:18 5.6 0.0-6.0 (%) Final Basos 08/10/2023 15:04:18 2.9 Above high normal 0.0-2.0 (%) Final Absolute Segs 08/10/2023 15:04:18 3.08 1.80-7.70 (K/uL) Final Lymphs, absolute 08/10/2023 15:04:18 1.70 1.00-4.80 (K/ul) Final Monos, Abs 08/10/2023 15:04:18 0.59 0.00-1.10 (K/uL) Final Eos, Abs 08/10/2023 15:04:18 0.33 0.00-0.70 (K/uL) Final Basos, Abs 08/10/2023 15:04:18 0.17 0.00-0.20 (K/uL) Final Performing Location [facility] [place] [address]
--- OUTSIDE RECORDS SUMMARY | 2023-12-08 20:05 | External Medical Summary ---
Author Name Unknown Address Unknown Organization [id number][facility] [place] [address] Laboratory Report Ordering Provider Test Date Status TONY KRUEGER 08/10/2023 15:04:18 Final Observation Date Value Abnormality Reference (Units ) Status WBC, Total 08/10/2023 15:04:18 5.87 4.00-10.8 0 (K/uL) Final RBC 08/10/2023 15:04:18 4.65 4.50-5.25 (M/uL) Final Hemoglobin 08/10/2023 15:04:18 13.3 Below low normal 14 .0-16.8 (g/dL) Final HCT 08/10/2023 15:04:18 41.2 40.0-48.4 (%) Final MCV 08/10/2023 15:04:18 88.6 82.0-99.5 (fL) Final MCH 08/10/2023 15:04:18 28.6 27.0-34.0 (pg) Final MCHC 08/10/2023 15:04:18 32.3 32.0-36.0 (g/dL) Final RDW 08/10/2023 15:04:18 14.4 11.5-15.5 (%) Final Platelets 08/10/2023 15:04:18 228 140-400 (K /uL) Final MPV 08/10/2023 15:04:18 10.6 6.6-11.1 ( fL) Final Performing Location [facility] [place] [address]
--- OUTSIDE RECORDS SUMMARY | 2023-12-08 20:05 | External Medical Summary | Summary of Care ---
Author Name Unknown Organization [facility] Address [address] [place] [address] Phone [phone] Care Team Providers Care Grader Operator Name Role Phone Rubio Dias MD Primary Care Provider [phone] Encounter Details Date Type Department Care Team (Late st Contact Info) Description 07/25/2023 Telephone [facility] [place] [address] [place] [address] Oscar Woodall MD [address] [place] [address] Allergies Active Allergy Reactions Criticality Noted Date Comments Bee Venom 04/03/2002 Ondansetron Hcl Edema Other 07/12/2017 All over swelling documented as of this encounter (statuses as of 07/25/2023) Medications Medication Sig Dispensed Refills Start Date [...] A1c goal of less than 7.0% ([facility]) Take 1 Tablet by mouth in the [...] 30 mL 11 02/16/2023 Active Dexcom G6 Manager Club Device Use as directed 1 Each 0 02/16/2023 Active Dexcom G6 Sensor Apply a new sensor every 10 days 9 Each 3 02/16/2023 Active Dexcom G6 Transmitter Use with dex com continuous glucose sensor as directed by child and adolescent psychologist 1 Each 4 02/16/2023 Active Mycophenolate Sodium [...] THE EVENING 90 Capsule 1 06/28/2023 Active Omnipod 5 G6 Pod (Gen 5) Use as directed. Use up to 200 units via insulin pod every 24 hours. 90 Each 3 07/15/2023 Active documented as of this encounter (statuses as of 07/25/2023) Active Problems Problem Noted Date Diagnosed Date [...] as of this encounter (statuses as of 07/25/2023) Resolved Problems Problem Noted Date Diagnosed Date [...] as of this encounter (statuses as of 07/25/2023) Immunizations Name Administration Dates Next Due PPD [...] drink = 0.6 oz pur e alcohol) Sex and Gender Information Value Date Recorded [...] Care Team (Late st Contact Info) Description 08/09/2023 9:00 AM EST Hem/Onc Treatment Hematology/Oncology Treatment, [address] [address] Susan, Chair 10 Hem On[address] [address] 08/24/2023 8:00 AM EST Office Visit Endocrinology, [address] [address] Codi Cam PA-C [address] [place] [address] 08/24/2023 8:30 AM EST Office Visit Transplant Clinic, [address] [address] Elder Rooney DNP [address] [place] [address] 12/28/2023 3:40 PM EDT Office Visit [address] [phone] Ivan Martinez MD [address] [place] [address] [place] [address] Health Maintenance Due Date Last Done Comments [...] this encounter Medical Devices Implanted Type Area Maintenance Superintendent Device Identifier Shelf Expiration Date Model / Serial / Lot Port Implant W/8f Poly Cath - [id number] Implanted:Qty : 1 on 05/12/2021 by Dong Ackerman, DO at OR [facility] Right: Chest CR BARD : [employer] [id number] 08/02/2021 [id number] / / [id number] documented as of this encounter Advance Directives [...] the patient have Health Care Power of Butcher'S Assistant? No Full Code 09/24/2018 3:28 PM 09/25/2018 5:03 AM Thi s order reflects the patients wishes and were consensually agreed upon. Question Answer Comments Discussion of Advance Directives occurred with: Not Discussed Does the patient have a Living Will? No Does the patient have Health Care Power of Butcher'S Assistant? No Care Teams Grader Operator Relationship Specialty Start Date End Date Rubio Dias MD [address] [place] [address] [place] [address] PCP - General Family Medicine 12/22/22 documented as of this encounter
--- OUTSIDE RECORDS SUMMARY | 2023-12-08 20:05 | External Medical Summary ---
Author Name Unknown Address Unknown Organization K09[facility] [place] [address] Laboratory Report Ordering Provider Test Date Status TONY KRUEGER 09/07/2023 08:30:54 Final Observation Date Value Abnormality Reference (Units ) Status SYNC LEUKOCYTES IN BLOOD BY AUTOMATED COUNT 09/07/2023 08:30:54 5.06 4.00-10.80 (K/uL) Final Segs 09/07/2023 08:30:54 52.2 40.0-75.0 (%) Final Lymphs % 09/07/2023 08:30:54 29.6 18.0-42.0 (%) Final Monos 09/07/2023 08:30:54 9.3 1.0-11.0 (%) Final Eosinophils 09/07/2023 08:30:54 3.4 0.0-6.0 (%) Final Basos 09/07/2023 08:30:54 5.5 Above high normal 0.0-2.0 (%) Final Absolute Segs 09/07/2023 08:30:54 2.64 1.80-7.70 (K/uL) Final Lymphs, absolute 09/07/2023 08:30:54 1.50 1.00-4.80 (K/ul) Final Monos, Abs 09/07/2023 08:30:54 0.47 0.00-1.10 (K/uL) Final Eos, Abs 09/07/2023 08:30:54 0.17 0.00-0.70 (K/uL) Final Basos, Abs 09/07/2023 08:30:54 0.28 Above high normal 0.00-0.20 (K/uL) Final Performing Location [facility] [place] [address]
--- OUTSIDE RECORDS SUMMARY | 2023-12-08 20:05 | External Medical Summary ---
Author Name Unknown Address Unknown Organization K09:[facility] [place] [address] Laboratory Report Ordering Provider Test Date Status TONY KRUEGER 09/07/2023 08:30:54 Final Observation Date Value Abnormality Reference (Units ) Status BUN 09/07/2023 08:30:54 23 Above high normal 6-20 (mg/dL) Final Creatinine 09/07/2023 08:30:54 0.9 0.6-1.2 (mg/dL) Final Glomerular filtration rate/1.73 sq M.predicted [Volume Rate/Area] in Serum, Plasma or Blood by Creatinine-based formula (CKD-EPI) 09/07/2023 08:30:54 >90 >=60 (mL/min) Final eGFR is calculated based on the CKD-EPI 2020 equation SODIUM 09/07/2023 08:30:54 138 135-146 (m mol/L) Final Potassium 09/07/2023 08:30:54 4.2 3.5-5.1 (m mol/L) Final Cl 09/07/2023 08:30:54 103 98-107 (mm ol/L) Final CO2 09/07/2023 08:30:54 26 22-32 (mmo l/L) Final Anion gap 09/07/2023 08:30:54 9 7-15 (mmol /L) Final Glucose 09/07/2023 08:30:54 159 Above high normal 70 -120 (mg/dL) Final Calcium 09/07/2023 08:30:54 10.4 Above high normal 8. 4-10.2 (mg/dL) Final Performing Location [facility] [place] [address]
--- OUTSIDE RECORDS SUMMARY | 2023-12-08 20:05 | External Medical Summary ---
Author Name Unknown Address Unknown Organization K09:[facility] [place] [place] [address] Laboratory Report Ordering Provider Test Date Status TONY KRUEGER 09/07/2023 08:30:54 Final Observation Date Value Abnormality Reference (Units ) Status Magnesium 09/07/2023 08:30:54 1.9 1.5-2.6 (m g/dL) Final Performing Location [facility] [place] [address]
--- OUTSIDE RECORDS SUMMARY | 2023-12-08 20:05 | External Medical Summary | Summary of Care ---
Author Name Unknown Organization [facility] Address [address] [place] [address] Phone [phone] Care Team Providers Care Biscuit Machine Operator Name Role Phone Rubio Dias MD Primary Care Provider Reason for Referral * Evaluate & Treat - Unlimited Visits (Within 30 days (routine)) - Authorized Specialty Diagnoses / Procedures Referred By Bob banerjee Referred To Contact Pharmacist / Pharmacy Diagnoses DM type 2, not at goal (HCC) Codi Cam PA-C [address] [place] [address] Referral ID Status Reason Start Date Expiration Date Visits Requested Visits Authorized [id number] Authorized Specialty Services Required 3 99 99 Question Answer Referral Priority Within 30 days (routine) Where should this appointment be scheduled? [facility] Department: Specialist Specialty: Endo Reason for Referral: DM Target A1c: < 7 Comments Pharmacist Medication Therapy Management: help with new OP5 use Minimum frequency patient should be seen in person for medication management: as appropriate per clinical condition and patient status By my signature, I understand that my patient Ramesh Tamez will have his medication therapy managed by the [facility] Medication Therapy [facility] ([facility]) per established policies, procedures, and protocols. I also certify that this referral may serve as an initiation of service for the management of drug therapy in the above noted patient. [facility] providers will be responsible for scheduling patient visits, obtaining appropriate laboratory studies, and adjusting medication management therapy per patient's need, in addition to those roles spelled out in the clinic policy, procedures, and drug management protocols. I understand that the service provided by the [facility] Clinic is voluntary and have informed patient that they can refuse the service at their discretion. I am aware that the [facility] Clinic will provide me with a copy of the patient encounter via my [facility]. I authorize the [facility] Clinic to carry out these activities on my behalf. I consider this program to be a necessary part of the patient's medical care. Codi Cam PA-C Reason for Visit * Reason Comments Follow Up Encounter Details Date Type Department Care Team (Late st Contact Info) Description 08/24/2023 8:00 AM EST Office Visit Endocrinology, [place] [address], [place] [id number] Codi Cam PA-C [address], [place] [id number] DM type 2, not at goal ([facility]; Type 2 diabetes mellitus with diabetic neuropathy, with long-term current use of insulin ([facility]); Proliferative diabetic retinopathy without macular edema associated with type 2 diabetes mellitus, unspecified laterality ([facility]); Charcot's joint of right foot Allergies Active Allergy Reactions Criticality Noted Date Comments Bee Venom 04/03/2002 Ondansetron Hcl Edema Other 07/12/2017 All over swelling documented as of this encounter (statuses as of 08/24/2023) Medications Medication Sig Dispensed Refills Start Date [...] 0.4 mL 11 3 Active Dexcom G6 Tafe Teacher Device Use as directed 1 Each 0 3 Active Dexcom G6 Sensor Apply a new sensor every 10 days 9 Each 3 3 Active Dexcom G6 Transmitter Use with dex com continuous glucose sensor as directed by music industry internship 1 Each 4 3 Active Mycophenolate Sodium 180 MG Oral Tablet Delayed Release (Myfortic)Indicat ions:Kidney replaced by transplant,Need for prophylactic immunotherapy Take 360 mg by mouth in the morning and 360 mg before bedtime. 360 Tablet 3 3 Active Tamsulosin HCl 0.4 MG Oral [...] and Z96.41 30 mL 11 3 Active HumaLOG 100 UNIT/ML Subcutaneous Solution Use to fill Omnipod with 200 units every 2 days. E11.9 and Z96.41 30 mL 11 3 08/24/20 23 Discontinu ed(Refill) Pregabalin 150 MG Oral Capsule (Lyrica) TAKE ONE CAPSULE BY MOUTH ONE TIME DAILY IN THE EVENING 90 Capsule 1 3 08/24/20 23 Discontinu ed(Medicat ion/Dose Changed) documented as of this encounter (statuses as of 08/24/2023) Active Problems Problem Noted Date Diagnosed Date [...] as of this encounter (statuses as of 08/24/2023) Resolved Problems Problem Noted Date Diagnosed Date [...] as of this encounter (statuses as of 08/24/2023) Immunizations Name Administration Dates Next Due PPD [...] Sign Reading Time Taken Comments Blood Pressure 106/65 08/24/2023 7:47 AM EST Pulse 79 08/24/2023 7:47 AM EST Temperature 36.6 C (97.9 F) 08/24/2023 7:47 AM ES T Respiratory Rate - - Oxygen Saturation - - Inhaled Oxygen Concentration - - Weight 114.8 kg (253 lb) 08/24/2023 7:47 AM EST Height 190.5 cm (6' 3") 08/24/2023 7:47 AM EST Body Mass Index 31.62 08/24/2023 7:47 AM EST documented in this [...] as of this encounter Progress Notes * Codi Cam PA-C - 08/24/2023 7:43 AM EST Chief Complaint: Follow up for Diabetes Mellitus Ramesh is a 57 year old male patient of Rubio Dias MD here today for endocrine follow up. HPI Diabetes history Diagnosed in 1990. Here today for evaluation of type 2 diabetes. Does not understand how to use his insulin pump says he has not used it because he does not understand how to set it up. On 44 units of long acting insulin twice a day; morning and night 22-30 units of humalog at meal time. On humalog at meal time sliding scale. People at surgery center his dexcom is not reading right. Reading 40 points higher patient says he never calibrated. C/o of polyuria, polydipsia and polyphagia. Feels bad at lower sugars (around 100) so he sometimes does not administer his mealtime insulin andprefers it to run at least 200 overnight. Kidney function is normal post renal transplant. 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 Complications: Chronic kidney disease status post kidney transplant in 2018 Diabetic retinopathy, gastroparesis, hannah, htn. Comorbidities: obesity Last visit in endocrinology: in office: 02/16/2023, telemed: Visit date not found ROS Pt reporting: no blurry vision yes increased thirst or dry mouth no unexplained weight change No n/v and alternating diarrhea and constipation. yes nocturia > 2x yes foot pain, yes tingling, yes numbness- from the knees down Diabetes Health Maintenance Due: Health Maintenance Due Topic Date Due Hepatitis B (1 of 3 - 3-dose series) Never done COVID-19 Vaccine (1) Never done Depression Screening Never done DTaP,Tdap,and Td Vaccines (1 - Tdap) Never done Zoster Vaccines (1 of 2) Never done Colorectal Cancer Screening Never done Pneumococcal Vaccine: Pediatrics (0 to 5 Years) and At-Risk Patients (6 to 64 Years) (2 - PCV) 06/03/2014 Diabetic Eye Exam 01/05/2017 Influenza Vaccine (FLU shot) (1) 06/03/2023 Blood Glucose Monitoring: Medical need for glucose monitoring: Yes, using dexcom Patient tested glucose > 4 times per day for the past 6 months Meter data over past 14 days: Average glucose: 255 Pt testing: >4 times per day CGM Data over past 14 days: Average glucose 255 mg/dL vs goal of <150 mg/dl Time in range: 25 % (vs goal of >70%) with 0 % under 70% and 47 % over 250 mg/dl Glucose management indicator: 9.4 % vs goal of <7% AM average:250-260 PM average: 250 Lifestyle: 3 meals per day yes aware of high carb foods/bucky to manage Beverages include: water Physical activity includes: adl. HISTORY Social History Tobacco Use Smoking Status Never Smokeless Tobacco Current Types: Chew Tobacco Comments One bag q two days MEDICATIONS/ALLERGIES Current Outpatient Medications (Antidiabetic) Medication Sig Dispense Refill HumaLOG KwikPen 100 UNIT/ML Subcutaneous Solution Pen-injector Inject 26 units plus sliding scale three times daily with meals. Needs up to 80 u/d 75 mL 3 Gvoke HypoPen 2-Pack 1 MG/0.2ML Subcutaneous Solution Auto-injector (Glucagon) Inject 1.0 mg under the skin of belly/thigh or upper arm as needed for unresponsiveness due to suspected hypoglycemia 0.4 mL 11 HumaLOG 100 UNIT/ML Subcutaneous Solution Use to fill Omnipod with 200 units every 2 days. E11.9 and Z96.41 30 mL 11 Insulin Glargine 100 UNIT/ML Subcutaneous Solution Pen-injector Inject 48 Units under the skin in the morning and 48 Units before bedtime. Current Outpatient Medications (Other) Medication Sig Dispense Refill Omnipod 5 G6 Pod (Gen 5) Use as directed. Use up to 200 units via insulin pod every 24 hours. 90 Each 3 Pregabalin 150 MG Oral Capsule (Lyrica) TAKE ONE CAPSULE BY MOUTH ONE TIME DAILY IN THE EVENING 90 Capsule 1 dilTIAZem HCl ER Coated Beads 240 MG Oral Capsule Extended Release 24 Hour (Cardizem CD) TAKE 1 CAPSULE BY MOUTH EVERY DAY 90 Capsule 3 Tamsulosin HCl 0.4 MG Oral Capsule (Flomax) TAKE 1 CAPSULE BY MOUTH EVERY DAY AT NIGHT 90 Capsule 3 Mycophenolate Sodium 180 MG Oral Tablet Delayed Release (Myfortic) Take 360 mg by mouth in the morning and 360 mg before bedtime. 360 Tablet 3 Dexcom G6 Tafe Teacher Device Use as directed 1 Each 0 Dexcom G6 Sensor Apply a new sensor every 10 days 9 Each 3 Dexcom G6 Transmitter Use with dex com continuous glucose sensor as directed by music industry internship 1 Each4 Lidocaine 5 % External Patch (Lidoderm) Place 1 Patch topically on the skin daily. 12 hours ON and 12 hours OFF 30 Patch 5 Aspirin EC 81 MG Oral Tablet Delayed Release Take 1 Tablet by mouth in the morning. Lidocaine-Prilocaine 2.5-2.5 % External Cream (Emla) Apply topically to affected area as needed (Mediport site prior to Monthly infusion). Apply to Mediport site prior to Monthly infusion 30 g 0 Lidocaine-Prilocaine 2.5-2.5 % External Kit (Emla) Apply a pea-sized amount over mediport 30 minutes prior to access. Cover with occlusive dressing/plastic wrap until prep 5 g 5 folic acid 1 MG Tablet Take 1 Tablet by mouth in the morning. Rosuvastatin Calcium 20 MG Oral Tablet Take 1 Tablet by mouth in the morning. D5W 5% SOLN 100 mL with belatacept 250 MG SOLR Administer 5 mg/kg intravenously once. Induction then monthly EPINEPHrine, anaphylaxis, (EPI-PEN) 0.3 MG/0.3ML SOAJ injection Use as directed. 1 BD PEN NEEDLE BLUE U/F 32G X 4 MM 5 Review of patient's allergies indicates: Allergen Reactions Bee Venom Zofran [Ondansetron Hcl] Edema Other All over swelling PHYSICAL EXAM BP 106/65 | Pulse 79 | Temp 36.6 C (97.9 F) | Ht 1.905 m (6' 3") | Wt 114.8 kg (253 lb) | BMI 31.62 kg/m | BSA 2.46 m Wt Readings from Last 5 Encounters: 08/24/23 114.8 kg (253 lb) 07/15/23 109.1 kg (240 lb 9.6 oz) 06/28/23 110.8 kg (244 lb 5 oz) 06/14/23 112.3 kg (247 lb 9 oz) 05/04/23 113.1 kg (249 lb 6 oz) Gen: appears well, in NAD HEENT: no conjunctival injection, MMM Resp: normal respiratory pattern, no dyspnea with conversation CV: no cyanosis or edema Skin: no rash MSK: 4 extremities intact, PIKE Neuro: awake, alert, appropriate LABS Recent Labs Units 08/10/23 1504 02/21/23 0911 02/16/23 0842 HEMOGLOBIN A1C - [facility] % 11.2* 10.2* -- HEMOGLOBIN A1C POCT - [facility] % -- -- 9.8* Albumin / Creatinine Ratio, Urine (mg/g Creat) Date Value 08/10/2023 32 (H) 07/12/2023 <11 06/14/2023 <8 Recent Labs Units 08/10/23 1504 07/22/23 0728 07/12/23 0849 CREATININE - [facility] mg/dL 0.9 -- 0.9 CREATININE-OUTSIDE LAB mg/dL -- 1.22 -- ESTIMATED GLOMERULAR FILTRATION RATE - [facility] mL/min >90 -- >90 EGFR-OUTSIDE LAB mL/MIN -- 69 -- Recent Labs Units 11/19/21 1309 10/20/21 1410 AST - [facility] U/L -- 27 ALT - [facility] U/L -- 26 ALT-OUTSIDE LAB U/L 10 -- Recent Labs Units 11/03/22 1309 10/20/21 1410 CHOLESTEROL - [facility] mg/dL 106 89 LDL CHOLESTEROL (DIRECT MEASURE) - [facility] mg/dL 47 43 LDL CHOLESTEROL (CALCULATED) - [facility] mg/dL -- 42 HDL CHOLESTEROL - [facility] mg/dL 29* 24* TRIGLYCERIDES - [facility] mg/dL 243* 117 No results for input(s): "TSH" in the last 22510 hours. ASSESSMENT & PLAN This 57 year old male presents for f/u of type 2 diabetes mellitus using basal bolus insulin syringes. Currently the disease not controlled. Contributing factors are inadequate insulin administration aspatient feels best when glucose is 200. He has his Omnipod 5 and will start automated insulin delivery once he receives training. He requests additional help for painful diabetic neuropathy breaking through his pregabalin 150 daily. .DM type 2, not at goal (HCC) (Primary) Type 2 diabetes mellitus with diabetic neuropathy, with long-term current use of insulin (HCC) Proliferative diabetic retinopathy without macular edema associated with type 2 diabetes mellitus, unspecified laterality (HCC) Charcot's joint of right foot Other orders - Pregabalin 225 MG Oral Capsule (Lyrica); Take 1 Capsule by mouth every evening. Plan: He can fill the pods with his Humalog pens once he is setup on the pump, after these are gone he isinstructed to use the vials. Patient will open the kit and follow the instructions to set up his pump and received training. Patient will be setup with the [facility] pharmacist to help him adjust his omnipod 5 pump settings. Will see her in person in 6 weeks. Next visit will be: 6 months I spent a total of 45 minutes on the date of service in preparation, delivery, and documentation ofthe care provided to Ramesh Tamez excluding any time spent in the performance of separatelybilled services. Supervising physician was available in the office at the time of the encounter. Codi Cam PA-C [facility] Endocrinology documented in this encounter Nursing Notes * Angle Dykes MED ASSIST - 08/24/2023 7:37 AM EST Patient was instructed to not get up on the exam table/exam chair until directed and assisted by their provider; patient is to remain seated in the chair/ wheelchair/ exam table/ exam chair for fall prevention and safety reasons. Patient is aware to have assistance to step down off exam table/exam chair with personnel. Patient voiced full comprehension of instructions. Patient denies any signs or symptoms of Covid. Angle Dykes MA Adult Endocrinology documented in this encounter Plan of Treatment Upcoming Encounters Date Type Department Care Team (Late st Contact Info) Description 09/07/2023 9:00 AM EST Hem/Onc Treatment Hematology/Oncology Treatment, [place] [address] [place] [address] Susan, Chair 10 Hem Onc [facility] [address] [place] [address] 11/02/2023 8:30 AM EST Pharmacy Endocrinology, [place] [address] [place] [address] [place], Pharmacist Endocrinology [address] [place] [address] 12/28/2023 3:40 PM EDT Office Visit Family Medicine [address] [place] [phone] Ivan Martinez MD [address] [place] [address] [place] [address] 03/20/2024 7:30 AM EDT Office Visit Endocrinology, [place] [address] [place] [address] Codi Cam PA-C [address] [place] [address] Scheduled Referrals Name Type Priority Associated Diagnoses Orde r Schedule PHARMACIST MEDS THERAPY MGMT REFERRAL OP Referral Within 30 days (routine) DM type 2, not at goal (HCC) Ordered: 08/24/2023 Health Maintenance Due Date Last Done Comments [...] 06/14/2023, Additional history exists GFR 08/10/2024 08/10/2023, 10, 07/22/2023, Additional history exists GARDASIL-HPV IMMUNIZATION SERIES Aged Out No longer eligible based on patient's age to complete this topic MENINGOCOCCAL (MENACTRA/MENVEO) Aged Out No longer eligible based on patient's age to complete this topic documented as of this encounter Medical Devices Implanted Type Area Director Of Broadcast Device Identifier Shelf Expiration Date Model / Serial / Lot Port Implant W/8f Poly Cath - [id number] Implanted:Qty : 1 on 05/12/2021 by Dong Ackerman, DO at [facility] Right: Chest CR BARD : PERIPHERAL VASCULAR [id number] 08/02/2021 [id number] / / [id number] documented as of this encounter Visit Diagnoses Diagnosis DM type 2, not at goal (HCC)- Primary Type II or unspecified type diabetes mellitus without mention of complication, not stated as uncontrolled Type 2 diabetes mellitus with diabetic neuropathy, with long-term current use of insulin (HCC) Proliferative diabetic retinopathy without macular edema associated with type 2 diabetes mellitus, unspecified laterality (HCC) Charcot's joint of right foot documented in this encounter Advance Directives Latest [...] the patient have Health Care Power of Assistant County Attorney? No Full Code 09/24/2018 3:28 PM 09/25/2018 5:03 AM Thi s order reflects the patients wishes and were consensually agreed upon. Question Answer Comments Discussion of Advance Directives occurred with: Not Discussed Does the patient have a Living Will? No Does the patient have Health Care Power of Assistant County Attorney? No Care Teams Biscuit Machine Operator Relationship Specialty Start Date End Date Rubio Dias MD [address] [place] [address] [place] [address] PCP - General Family Medicine 12/22/22 documented as of this encounter
--- OUTSIDE RECORDS SUMMARY | 2023-12-08 20:05 | External Medical Summary | Summary of Care ---
Author Name Unknown Organization [facility] Address [address] [place] [address] Phone [phone] Care Team Providers Care Financial Services Assistant Name Role Phone Rubio Dias MD Primary Care Provider Reason for Visit * Reason Onset Date Comments Insulin Pump 09/01/2023 Forms Request 09/01/2023 Encounter Details Date Type Department Care Team (Late st Contact Info) Description 09/01/2023 Telephone Endocrinology, [place] [address] [place] [address] Codi Cam PA-C [address] [place] [address] Insulin Pump; Forms Request Allergies Active Allergy Reactions Criticality Noted Date Comments Bee Venom 04/03/2002 Ondansetron Hcl Edema Other 07/12/2017 All over swelling documented as of this encounter (statuses as of 09/01/2023) Medications Medication Sig Dispensed Refills Start Date [...] site prior to Monthly infusion). [facility] infusion 30 g [...] 0.4 mL 11 02/16/2023 Active Dexcom G6 On Site Services Specialist Device Use as directed 1 Each 0 02/16/2023 Active Dexcom G6 Sensor Apply a new sensor every 10 days 9 Each 3 02/16/2023 Active Dexcom G6 Transmitter Use with dex BusinessElite continuous glucose sensor as directed by conservation or heritage architect 1 Each 4 02/16/2023 Active Mycophenolate Sodium [...] as of this encounter (statuses as of 09/01/2023) Active Problems Problem Noted Date Diagnosed Date [...] as of this encounter (statuses as of 09/01/2023) Resolved Problems Problem Noted Date Diagnosed Date [...] as of this encounter (statuses as of 09/01/2023) Immunizations Name Administration Dates Next Due PPD [...] encounter Miscellaneous Notes * Telephone Encounter - Codi Cam PA-C - 09/01/2023 10:23 AM EST Images from the original note were not included. documented in this encounter Plan of Treatment Upcoming Encounters Date Type Department Care Team (Late st Contact Info) Description 09/07/2023 9:00 AM EST Hem/Onc Treatment Hematology/Oncology Treatment, [place] [address] [place] [address] Susan, Chair 10 Hem [facility] [place] [facility] [address] 11/02/2023 8:00 AM EST Office Visit Transplant Clinic, [address] [address] Elder Rooney, DNP [address] [place] [address] 11/02/2023 8:30 AM EST Pharmacy Endocrinology, [place] [address] [place] [address] [place], Pharmacist Endocrinology [address] [place] [address] 12/28/2023 3:40 PM EDT Office Visit Family Medicine [address] [phone] Ivan Martinez MD [address] [place] [address] [place] [id number] 03/20/2024 7:30 AM EDT Office Visit Endocrinology, [place] [address] [place] [address] Codi Cam PA-C [address] [place] [address] Health Maintenance Due Date Last Done Comments [...] this encounter Medical Devices Implanted Type Area Equipment Worker Device Identifier Shelf Expiration Date Model / Serial / Lot Port Implant W/8f Poly Cath - [id number] Implanted:Qty : 1 on 05/12/2021 by Dong Ackerman, DO at OR [facility] Right: Chest CR BARD : PERIPHERAL VASCULAR [id number] 08/02/2021 [id number] / / [id number] documented as of this encounter Advance Directives [...] the patient have Health Care Power of Commercial Lines Sales Executive? No Full Code 09/24/2018 3:28 PM 09/25/2018 5:03 AM Thi s order reflects the patients wishes and were consensually agreed upon. Question Answer Comments Discussion of Advance Directives occurred with: Not Discussed Does the patient have a Living Will? No Does the patient have Health Care Power of Commercial Lines Sales Executive? No Care Teams Financial Services Assistant Relationship Specialty Start Date End Date Rubio Dias MD [address] [place] [address] [place] [phone] PCP - General Family Medicine 12/22/22 documented as of this encounter
--- OUTSIDE RECORDS SUMMARY | 2023-12-08 20:05 | External Medical Summary ---
Author Name Unknown Address Unknown Organization K01:[facility] - [address] [place] [address] Laboratory Report Ordering Provider Test Date Status TONY KRUEGER 09/07/2023 08:30:54 Final Normal: <30 mg/g creatinine< br/>High: 30-300 mg/g creatinine
Very High: >300 mg/g creatinine
Nephrotic: >2200 mg/g creatinine Observation Date Value Abnormality Reference (Units ) Status Albumin, Urine 09/07/2023 08:30:54 <1.20 (mg/dL) Final Creatinine, Urine 09/07/2023 08:30:54 113 (mg/dL) Final Albumin/Creatinine [Mass Ratio] in Urine 09/07/2023 08:30:54 <11 <30 (mg/g Creat) Final Performing Location [facility] - [address] [place] [address]
--- OUTSIDE RECORDS SUMMARY | 2023-12-08 20:05 | External Medical Summary ---
Author Name Unknown Address Unknown Organization K09:[facility] [place] [place] [address] Laboratory Report Ordering Provider Test Date Status TONY KRUEGER 08/10/2023 15:04:18 Final Observation Date Value Abnormality Reference (Units ) Status Magnesium 08/10/2023 15:04:18 2.0 1.5-2.6 (m g/dL) Final Performing Location [facility] [place] [address]
--- OUTSIDE RECORDS SUMMARY | 2023-12-08 20:05 | External Medical Summary | Summary of Care ---
Author Name Unknown Organization [facility] Address [address] [place] [address] Phone [phone] Care Team Providers Care Change Management Expert Name Role Phone Rubio Dias MD Primary Care Provider Reason for Visit * Reason Onset Date Comments Insulin Pump 09/01/2023 Forms Request 09/01/2023 Encounter Details Date Type Department Care Team (Late st Contact Info) Description 09/01/2023 Telephone Endocrinology, [place] [address] [place] [address] Codi Cam PA-C [address] [place] [address] Insulin Pump; Forms Request Allergies Active Allergy Reactions Criticality Noted Date Comments Bee Venom 04/03/2002 Ondansetron Hcl Edema Other 07/12/2017 All over swelling documented as of this encounter (statuses as of 09/06/2023) Medications Medication Sig Dispensed Refills Start Date [...] site prior to Monthly infusion). [facility] to Monthly infusion 30 g [...] 0.4 mL 11 02/16/2023 Active Dexcom G6 Cigarette Machines Mechanic Device Use as directed 1 Each 0 02/16/2023 Active Dexcom G6 Sensor Apply a new sensor every 10 days 9 Each 3 02/16/2023 Active Dexcom G6 Transmitter Use with dex Yadio continuous glucose sensor as directed by staff certified nurse midwife 1 Each 4 02/16/2023 Active Mycophenolate Sodium [...] as of this encounter (statuses as of 09/06/2023) Active Problems Problem Noted Date Diagnosed Date [...] as of this encounter (statuses as of 09/06/2023) Resolved Problems Problem Noted Date Diagnosed Date [...] as of this encounter (statuses as of 09/06/2023) Immunizations Name Administration Dates Next Due PPD [...] encounter Miscellaneous Notes * Telephone Encounter - Candis Wang OSA - 09/06/2023 2:35 PM EST Received call from pt, he was calling in to ask what the status was for getting trained on his pumpthat he got , pt said that he has contacted [employer] but has got nowhere. I gave him kyle Urias's number to contact because eJssica Cam had completed paperwork on 09/01/23 for [employer] pump. Emily * Telephone Encounter - Codi Cam PA-C - 09/01/2023 10:23 AM EST Images from the original note were not included. documented in this encounter Plan of Treatment Upcoming Encounters Date Type Department Care Team (Late st Contact Info) Description 09/07/2023 9:00 AM EST Hem/Onc Treatment Hematology/Oncology Treatment, [place] [address] [place] [address] Susan, Chair 10 Hem Onc [place] [address] [facility] [address] 11/02/2023 8:00 AM EST Office Visit Transplant Clinic, [place] [address] [place] [address] Elder Rooney, [facility] [address], [place] [phone] 11/02/2023 8:30 AM EST Pharmacy Endocrinology, [place] [address], [place] [phone] [place], Pharmacist Endocrinology [address], [place] [phone] 12/28/2023 3:40 PM EDT Office Visit Family Medicine [address] [phone] Ivan Martinez MD [address] [place] [address] [place] [address] 03/20/2024 7:30 AM EDT Office Visit Endocrinology, [place] [address], [place] [phone] Codi Cam PA-C [address], [place] [phone] Health Maintenance Due Date Last Done Comments [...] this encounter Medical Devices Implanted Type Area Personal Security Specialist Device Identifier Shelf Expiration Date Model / Serial / Lot Port Implant W/8f Poly Cath - [id number] Implanted:Qty : 1 on 05/12/2021 by Dong Ackerman, at OR [facility] Right: Chest CR BARD : PERIPHERAL VASCULAR [id number] 08/02/2021 [id number] / / [id number] documented as of this encounter Advance Directives [...] the patient have Health Care Power of Punch Press Operator? No Full Code 09/24/2018 3:28 PM 09/25/2018 5:03 AM Thi s order reflects the patients wishes and were consensually agreed upon. Question Answer Comments Discussion of Advance Directives occurred with: Not Discussed Does the patient have a Living Will? No Does the patient have Health Care Power of Punch Press Operator? No Care Teams Change Management Expert Relationship Specialty Start Date End Date Rubio Dias MD [address] [place] [address] [place] [address] PCP - General Family Medicine 12/22/22 documented as of this encounter
--- OUTSIDE RECORDS SUMMARY | 2023-12-08 20:05 | External Medical Summary ---
Author Name Unknown Address Unknown Organization K09:[facility] [place] [address] Laboratory Report Ordering Provider Test Date Status TONY KRUEGER 08/10/2023 15:04:18 Final Observation Date Value Abnormality Reference (Units ) Status Nucleated erythrocytes/100 leukocytes [Ratio] in Blood by Automated count 08/10/2023 15:04:18 Final Performing Location [facility] [place] [id number]
--- OUTSIDE RECORDS SUMMARY | 2023-12-08 20:05 | External Medical Summary | Summary of Care ---
Author Name Unknown Organization [facility] Address [address] [facility] [place] [address] Phone [phone] Care Team Providers Care Boiler Attendant Name Role Phone Rubio Dias MD Primary Care Provider [phone] Reason for Visit * Reason Onset Date Comments Appointment 08/09/2023 Encounter Details Date Type Department Care Team (Late st Contact Info) Description 08/09/2023 Telephone Hematology/Oncology [place] [address] [facility] [place] [address] Mike Pittman MD [address] [facility] [address] Appointment Allergies Active Allergy Reactions Criticality Noted Date Comments Bee Venom 04/03/2002 Ondansetron Hcl Edema Other 07/12/2017 All over swelling documented as of this encounter (statuses as of 08/09/2023) Medications Medication Sig Dispensed Refills Start Date [...] site prior to Monthly infusion). Apply to [facility] site prior to Monthly infusion 30 g 0 09/14/2021 Active Aspirin EC 81 MG Oral Tablet Delayed ReleaseIndications :Kidney replaced by transplant,Type 2 diabetes mellitus with hemoglobin A1c goal of less than 7.0% ([facility]) Take 1 Tablet by mouth [...] 30 mL 11 02/16/2023 Active Dexcom G6 Patient Access Device Use as directed 1 Each 0 02/16/2023 Active Dexcom G6 Sensor Apply a new sensor every 10 days 9 Each 3 02/16/2023 Active Dexcom G6 Transmitter Use with dex com continuous glucose sensor as directed by neonatologist 1 Each 4 02/16/2023 Active Mycophenolate Sodium [...] as of this encounter (statuses as of 08/09/2023) Active Problems Problem Noted Date Diagnosed Date [...] as of this encounter (statuses as of 08/09/2023) Resolved Problems Problem Noted Date Diagnosed Date [...] as of this encounter (statuses as of 08/09/2023) Immunizations Name Administration Dates Next Due PPD [...] Telephone Encounter - Angela Lilly OSA - 08/09/2023 8:43 AM EST Spoke to patient, rescheduled infusion for 08/10/23 @ 3:00 pm. * Telephone Encounter - Brigette Rodriguez OSA - 08/09/2023 8:32 AM EST Patient is calling, he is scheduled for 9 am treatment today and is unable to make it, He would like to get rescheduled tomorrow or . Please call him back documented in this encounter Plan of Treatment Upcoming Encounters Date Type Department Care Team (Late st Contact Info) Description 08/10/2023 3:00 PM EST Hem/Onc Treatment Hematology/Oncology Treatment, [place] [address] [place] [address] Susan, Chair 11 Hem Onc [place] [address] [facility] [place] [address] 08/24/2023 8:00 AM EST Office Visit Endocrinology, [place] [address] [place] [address] Codi Cam PA-C [address] [place], [place] [phone] 08/24/2023 8:30 AM EST Office Visit Transplant Clinic, [place] [address] [place] [address] Elder Rooney [facility] [address] [place] [address] 12/28/2023 3:40 PM EDT Office Visit Family Medicine [address] [phone] Ivan Martinez MD [address] [place] [address] [place] [address] Health Maintenance Due Date Last Done Comments [...] this encounter Medical Devices Implanted Type Area Plastic Molder Device Identifier Shelf Expiration Date Model / Serial / Lot Port Implant W/8f Poly Cath - [id number] Implanted:Qty : 1 on 05/12/2021 by Dong Ackerman DO at OR [facility] Right: Chest CR BARD : PERIPHERAL VASCULAR [id number] 08/02/2021 [id number] / / [id number] documented as of this encounter Advance Directives [...] the patient have Health Care Power of Dumpster Driver? No Full Code 09/24/2018 3:28 PM 09/25/2018 5:03 AM Thi s order reflects the patients wishes and were consensually agreed upon. Question Answer Comments Discussion of Advance Directives occurred with: Not Discussed Does the patient have a Living Will? No Does the patient have Health Care Power of Dumpster Driver? No Care Teams Boiler Attendant Relationship Specialty Start Date End Date Rubio Dias MD [address] [place] [address] [place] [address] PCP - General Family Medicine 12/22/22 documented as of this encounter
--- OUTSIDE RECORDS SUMMARY | 2023-12-08 20:05 | External Medical Summary ---
Author Name Unknown Address Unknown Organization K01[facility] [address] [place] [address] Laboratory Report Ordering Provider Test Date Status TONY KRUEGER 08/10/2023 16:57:05 Final Normal: <30 mg/g creatinine< br/>High: 30-300 mg/g creatinine
Very High: >300 mg/g creatinine
Nephrotic: >2200 mg/g creatinine Observation Date Value Abnormality Reference (Units ) Status Albumin, Urine 08/10/2023 16:57:05 1.23 (mg/dL) Final Creatinine, Urine 08/10/2023 16:57:05 39 (mg/dL) Final Albumin/Creatinine [Mass Ratio] in Urine 08/10/2023 16:57:05 32 Above high normal <30 (mg/g Creat) Final Performing Location [facility] [address] [place] [address]
--- OUTSIDE RECORDS SUMMARY | 2023-12-08 20:05 | External Medical Summary | Summary of Care ---
Author Name Unknown Organization [facility] Address [address] [place] [address] Phone [phone] Care Team Providers Care Oil Program Compliance Specialist Name Role Phone Rubio Dias MD Primary Care Provider [phone] Reason for Visit * Reason Comments IV Therapy Nulojix * Episode Based Medications (Routine) - Authorized Specialty Diagnoses / Procedures Referred By Bob banerjee Referred To Contact Diagnoses Kidney replaced by transplant Procedures [place] BELATACEPT INJECTION Elder Rooney, [facility] [address] [place] [address] Anc Hem/Onc [facility] Susan [address] [place] [address] [place] [phone] Referral ID Status Reason Start Date Expiration Date V isits Requested Visits Authorized [id number] Authorized 12/28/2021 10/02/2099 99 99 Encounter Details Date Type Department Care Team (Latest Contact Info) Description 08/10/2023 3:00 PM EST Hem/Onc Treatment Hematology/Oncolog y Treatment, [place] [address] [place] [address] Susan, Chair 11 Hem Onc [facility] [address] [facility] [place] [address] Kidney replaced by transplant*; DM type 2, not at goal (HCC); Need for prophylactic immunotherapy Allergies Active Allergy Reactions Criticality Noted Date Comments Bee Venom 04/03/2002 Ondansetron Hcl Edema Other 07/12/2017 All over swelling documented as of this encounter (statuses as of 08/10/2023) Medications Medication Sig Dispensed Refills Start Date [...] Monthly infusion). [facility] to Monthly infusion 30 g 0 09/14/2021 Active Aspirin EC 81 MG Oral Tablet Delayed ReleaseIndications :Kidney replaced by transplant,Type 2 diabetes mellitus with hemoglobin A1c goal of less than 7.0% ([facility]) Take 1 Tablet by mouth [...] unresponsiveness due to suspected hypoglycemia 0.4 mL 02/16/2023 Active HumaLOG 100 UNIT/ML Subcutaneous Solution Use to fill Omnipod with 200 units every 2 days. E11.9 and Z96.41 30 mL 02/16/2023 Active Dexcom G6 Manager Technical Services Device Use as directed 1 Each 0 02/16/2023 Active Dexcom G6 Sensor Apply a new sensor every 10 days 9 Each 3 02/16/2023 Active Dexcom G6 Transmitter Use with dex com continuous glucose sensor as directed by traffic engineer 1 Each 4 02/16/2023 Active Mycophenolate [...] as of this encounter (statuses as of 08/10/2023) Active Problems Problem Noted Date Diagnosed Date [...] as of this encounter (statuses as of 08/10/2023) Resolved Problems Problem Noted Date Diagnosed Date [...] as of this encounter (statuses as of 08/10/2023) Immunizations Name Administration Dates Next Due PPD [...] Sign Reading Time Taken Comments Blood Pressure 115/65 08/10/2023 3:05 PM EST Pulse 78 08/10/2023 3:05 PM EST Temperature 36.4 C (97.6 F) 08/10/2023 3:05 PM ES T Respiratory Rate 16 08/10/2023 3:05 PM EST Oxygen Saturation 96% 08/10/2023 3:05 PM EST Inhaled Oxygen Concentration - - [...] as of this encounter Nursing Notes * Karine Cerna, RN - 08/10/2023 4:30 PM EST Chair 5. Port accessed and labs drawn via port. Patient concerned that his new Dexcom he has is reading incorrectly since it read incorrectly at a previous hospital visit in comparison with their glucometer reading -- labs drawn and Glucose resulted at 53 while his Dexcom read 94 -- patient had an apple juice after this since he said he felt hisDexcom read about 40 points higher than what his glucose actually was. Patient instructed he shouldget this checked out -- pt says he plans to go to endocrine's office an have someone look at this and explain this to him since he also has an insulin pump and no one had ever explained anything to him about how to work these/calibrate these/etc. Patient communicated understanding and will get thislooked at sooner rather than later. Safety and Risk for Injury Patient will remain free from injury. Ensure appropriate safety devices are available. Provide and maintain safe environment. Goals: Patient will remain free from injury. Possible barriers to meeting goals: ambulating with IV pole Stability of the patient: Moderately stable - low risk of patient condition declining or worsening Summary regarding today's goals: Met: pt remained free of harm today Patient tolerated treatment well without any acute issues or problems. Patient left facility in stable condition and denied any further needs. documented in this encounter Plan of Treatment Upcoming Encounters Date Type Department Care Team (Late st Contact Info) Description 08/24/2023 8:00 AM EST Office Visit Endocrinology, [place] [address] [place] [address] Codi Cam PA-C [address] [place] [address] 08/24/2023 8:30 AM EST Office Visit Transplant Clinic, [place] [address] [place] [address] Elder Rooney, DNP [address] [place] [address] 12/28/2023 3:40 PM EDT Office Visit Family Medicine [address] [place] [phone] Ivan Martinez MD [address] [place] [address] [place] [address] Pending Results Name Type Priority Associated Diagnoses Date /Time BK VIRUS DNA, QUANTITATIVE REAL-TIME PCR, BLOOD Lab STAT Kidney replaced by transplant 08/10/2023 3:04 PM EST HEMOGLOBIN A1C Lab Routine DM type 2, not at goal (HCC) 08/10/2023 3:04 PM EST ALBUMIN / CREATININE RATIO, URINE Lab STAT Kidney replaced by transplant Need for prophylactic immunotherapy 08/10/2023 4:57 PM EST Health Maintenance Due Date Last [...] 023, 06/14/2023, 04/19/2023, Additional history exists GFR 08/10/2024 08/10/2023, 07/04, 07/22/2023, Additional history exists GARDASIL-HPV IMMUNIZATION SERIES Aged Out No longer eligible based on patient's age to complete this topic MENINGOCOCCAL (MENACTRA/MENVEO) Aged Out No longer eligible based on patient's age to complete this topic documented as of this encounter Medical Devices Implanted Type Area Pot Liner Device Identifier Shelf Expiration Date Model / Serial / Lot Port Implant W/8f Poly Cath - [id number] Implanted:Qty : 1 on 05/12/2021 by Dong Ackerman, at OR [facility] Right: Chest CR BARD : PERIPHERAL VASCULAR [id number] 08/02/2021 [id number] / / [id number] documented as of this encounter Procedures Procedure Name Priority Date/Time Associated Diagnosis Comments DIFFERENTIAL, AUTOMATED STAT 08/10/2023 3:04 PM EST Kidney replaced by transplant BASIC METABOLIC PANEL STAT 08/10/2023 3:04 PM EST Kidney replaced by transplant CBC STAT 08/10/2023 3:04 PM EST Kidney replaced by transplant CBC STAT 08/10/2023 3:04 PM EST Kidney replaced by transplant DIFFERENTIAL, TECHNOLOGIST REVIEW Routine 08/10/2023 3:04 PM EST Kidney replaced by transplant MAGNESIUM STAT 08/10/2023 3:04 PM EST Kidney replaced by transplant documented in this encounter Results * DIFFERENTIAL, TECHNOLOGIST REVIEW (08/10/2023 3:04 PM EST) nRBCs 08/10/2023 3:45 PM EST [facility] 56-02 Blood Venous blood specimen / Unknown Central Line / Unknown 08/10/2023 3:04 PM EST 08/10/2023 3:39 PM EST Elder Rooney [facility] LAB BLOOD ORDERA BLES [facility] 56- [address] [place] [address] * (ABNORMAL) DIFFERENTIAL, AUTOMATED (08/10/2023 3:04 PM EST) WBC 5.87 4.00 - 10.80 K/uL 08/10/2023 3:45 PM EST [facility] 56-02 Neutrophils % 52.4 40.0 - 75.0 % 08/10/2023 3:45 PM EST [facility] 56-02 Lymphocytes % 29.0 18.0 - 42.0 % 08/10/2023 3:45 PM EST [facility] 56-02 Monocytes % 10.1 1.0 - 11.0 % 08/10/2023 3:45 PM EST [facility] 56-02 Eosinophils % 5.6 0.0 - 6.0 % 08/10/2023 3:45 PM EST [facility] 56-02 Basophils % 2.9(H) 0.0 - 2.0 % 08/10/2023 3:45 PM EST [facility] 56-02 Absolute Neutrophils 3.08 1.80 - 7.70 K/uL 08/10/2023 3:45 PM EST [facility] 56-02 Absolute Lymphocytes 1.70 1.00 - 4.80 K/ul 08/10/2023 3:45 PM EST [facility] 56-02 Absolute Monocytes 0.59 0.00 - 1.10 K/uL 08/10/2023 3:45 PM EST [facility] 56-02 Absolute Eosinophils 0.33 0.00 - 0.70 K/uL 08/10/2023 3:45 PM EST [facility] 56-02 Absolute Basophils 0.17 0.00 - 0.20 K/uL 08/10/2023 3:45 PM EST [facility] 56-02 Blood Venous blood specimen / Unknown Central Line / Unknown 08/10/2023 3:04 PM EST 08/10/2023 3:39 PM EST Elder Rooney DNP LAB BLOOD ORDERA BLES [facility] 56- [address] [place] [address] * (ABNORMAL) CBC (08/10/2023 3:04 PM EST) WBC 5.87 4.00 - 10.80 K/uL 08/10/2023 3:45 PM EST [facility] 56- RBC 4.65 4.50 - 5.25 M/uL 08/10/2023 3:45 PM EST [facility] 56 HGB 13.3(L) 14.0 - 16.8 g/dL 08/10/2023 3:45 PM EST [facility] 56 HCT 41.2 40.0 - 48.4 % 08/10/2023 3:45 PM EST [facility] 56 MCV 88.6 82.0 - 99.5 fL 08/10/2023 3:45 PM EST [facility] 56 MCH 28.6 27.0 - 34.0 pg 08/10/2023 3:45 PM EST [place] [address] MCHC 32.3 32.0 - 36.0 g/dL 08/10/2023 3:45 PM EST [address] RDW 14.4 11.5 - 15.5 % 08/10/2023 3:45 PM EST [facility] 56 PLT 228 140 - 400 K/uL 08/10/2023 3:45 PM EST [facility] 56 MPV 10.6 6.6 - 11.1 fL 08/10/2023 3:45 PM EST [facility] 56 Blood Venous blood specimen / Unknown Central Line / Unknown 08/10/2023 3:04 PM EST 08/10/2023 3:39 PM EST Elder Rooney DNP LAB BLOOD ORDERA BLES [facility] [address] [place] [address] * MAGNESIUM (08/10/2023 3:04 PM EST) Pathologist [facility] Magnesium 2.0 1.5 - 2.6 mg/dL 08/10/2023 4:01 PM EST [facility] 56 Blood Venous blood specimen / Unknown Central Line / Unknown 08/10/2023 3:04 PM EST 08/10/2023 3:39 PM EST Elder Rooney DNP LAB BLOOD ORDERA BLES [facility] 56 [address] [place] [address] * (ABNORMAL) BASIC METABOLIC PANEL (08/10/2023 3:04 PM EST) BUN 14 6 - 20 mg/dL 08/10/2023 4:01 PM EST [facility] 56 Creatinine 0.9 0.6 - 1.2 mg/dL 08/10/2023 4:01 PM EST [facility] 56 Estimated Glomerular Filtration Rate >90 >=60 mL/min 08/10/2023 4:01 PM [facility] 56 Comment:eGFR is calculated b ased on the CKD-EPI 2020 equation Sodium 139 135 - 146 mmol/L 08/10/2023 4:01 PM [facility] 56 Potassium 4.3 3.5 - 5.1 mmol/L 08/10/2023 4:01 PM [facility] 56 Chloride 104 98 - 107 mmol/L 08/10/2023 4:01 PM EST [facility] 56 CO2 25 22 - 32 mmol/L 08/10/2023 4:01 PM [facility] 56 Anion Gap 10 7 - 15 mmol/L 08/10/2023 4:01 PM [facility] 56- Glucose 53(L) 70 - 120 mg/dL 08/10/2023 4:01 PM [facility] 56- Calcium 9.9 8.4 - 10.2 mg/dL 08/10/2023 4:01 PM EST [facility] 56- Blood Venous blood specimen / Unknown Central Line / Unknown 08/10/2023 3:04 PM EST 08/10/2023 3:39 PM EST Elder Rooney DNP LAB BLOOD ORDERA BLES [facility] [address] [place] [address] documented in this encounter Visit Diagnoses Diagnosis [...] ONCE PRN Other, Hypersensitivity Reaction, Starting on Tue08/10/23 at 1557, Until Nury 08/11/23 at 1556, For 24 hours EPINEPHrine 1 MG/ML inj 0.3 mg 0.3 mg, Intramuscular, ONCE PRN Other, Hypersensitivity Reaction or Anaphylaxis, Starting on Tue08/10/23 at 1557, Until Nury 08/11/23 at 1556, For 24 hours hEParin 100 UNIT/ML Lock Flush inj 500 Units 500 Units (5 mL), IV Lock, PRN Other, IV Flush, Starting on Tue08/10/23 at 1557, Until Nury 08/11/23 at 1556, For 24 hours, Do not flush if lock, PICC, or central line not in place; IV infusing or unable to flush. Given 08/10/2023 4:47 PM EST 500 Units Hydrocortisone Sod Suc (PF) (Solu-Cortef) inj 100 mg 100 mg, IV Push, ONCE PRN Other, Hypersensitivity Reaction, Starting on Tue08/10/23 at 1557, Until Nury 08/11/23 at 1556, For 24 hours NSS infusion 500 mL, Intravenous, at 10 mL/hr, CONTINUOUS, Starting on Tue08/10/23 at 1700, Until Nury 08/11/23 at 0259 Start Infusion 08/10/2023 3:30 PM EST 500 mL 10 mL/hr sodium chloride 0.9 % flush/inj 10 mL 10 mL, IV Push, PRN Other, IV Flush, Starting on Tue08/10/23 at 1557, Until Nury 08/11/23 at 1556, For 24 hours, Do not flush if lock, PICC, or central line not in place; IV infusing or unable to flush. Given 08/10/2023 4:47 PM EST 10 mL Inactive Administered Medications - up to 3 most recent administrations Medication Order MAR Action Action Date Dose Rate Site Belatacept (Nulojix) 575 mg in NSS 100 mL infusion 575 mg (rounded from 577 mg = 5 mg/kg 115.4 kg Treatment plan Recorded weight), Intravenous, ONCE, 1 dose, On Tue08/10/23 at 1730, Administer over 30 Minutes, Final conc. between 2 and 10 mg/mL Administer over 30 minutes with an infusion set and a sterile, nonpyrogenic, ggn-ivspvdi-gpoqhmz filter (pore size of 0.2 to 1.2 micrometer) Start Infusion 08/10/2023 4:16 PM EST 575 mg 200 mL/hr documented [...] the patient have Health Care Power of Critical Systems Technician? No Full Code 09/24/2018 3:28 PM 09/25/2018 5:03 AM Thi s order reflects the patients wishes and were consensually agreed upon. Question Answer Comments Discussion of Advance Directives occurred with: Not Discussed Does the patient have a Living Will? No Does the patient have Health Care Power of Critical Systems Technician? No Care Teams Oil Program Compliance Specialist Relationship Specialty Start Date End Date Rubio Dias MD [address] [place] [address] [place] [address] PCP - General Family Medicine 12/22/22 documented as of this encounter
--- OUTSIDE RECORDS SUMMARY | 2023-12-08 20:05 | External Medical Summary ---
Author Name Unknown Address Unknown Organization : Laboratory Report Ordering Provider Test Date Status TONY KRUEGER 09/07/2023 08:30:54 Final Observation Date Value Abnormality Reference (Units ) Status Source 09/07/2023 08:30:54 Whole Blood Final BK virus DNA 09/07/2023 08:30:54 Not Detected (copies/mL) Final BK virus DNA [Log #/volume] (viral load) in Specimen by PAULINE with probe detection 09/07/2023 08:30:54 Not Detected (Log cps/mL) Final Reference Range: Not Detecte d
This test was developed and its analytical performance
characteristics have been determined by [facility]
[place]. It has
not been cleared or approved by the U.S. Food and Drug
Administration. This assay has been validated pursuant
to the CLIA regulations and is used for clinical
purposes.

Test Performed at:
[facility]
[address] [facility]
[place], [place] [address]
Mauricio Soriano M.D., Ph.D.,Director of Laboratories Performing Location
--- OUTSIDE RECORDS SUMMARY | 2023-12-08 20:05 | External Medical Summary | Summary of Care ---
Author Name Unknown Organization [facility] Address [address] [place] [address] Phone [phone] Care Team Providers Care Junior Project Coordinator Name Role Phone Rubio Dias MD Primary Care Provider [phone] Reason for Visit * Reason Onset Date Comments Precert Approved 07/12/2023 Omnipod 5 G6 Po d (Gen 5) Encounter Details Date Type Department Care Team (Late st Contact Info) Description 07/12/2023 Telephone Endocrinology, [place] [address] [place], [place] [id number] Apurva Morrison PA-C [address] [place] [address] Precert Approved (Omnipod 5 G6 Pod (Gen 5)) Allergies Active Allergy Reactions Criticality Noted Date Comments Bee Venom 04/03/2002 Ondansetron Hcl Edema Other 07/12/2017 All over swelling documented as of this encounter (statuses as of 07/25/2023) Medications Medication Sig Dispensed Refills Start Date End Date Status BD PEN NEEDLE BLUE U/F 32G X 4 MM 5 02/05/20 16 Active EPINEPHrine, anaphylaxis, (EPI-PEN) 0.3 MG/0.3ML SOAJ injection Use as directed. 1 06/22/20 17 Active D5W 5% SOLN 100 mL with [...] and 48 Units before bedtime. 0 Active Lidocaine-Priloc maryann 2.5-2.5 % External Kit (Emla) Apply a pea-sized amount over mediport 30 minutes prior to access. Cover with occlusive dressing/plastic wrap until prep 5 g 5 05/06/20 21 Active Lidocaine-Priloc maryann 2.5-2.5 % External Cream (Emla)Indication s:Kidney replaced by transplant,Need for prophylactic immunotherapy Apply topically to affected area as needed [facility] Apply to Mediport site prior to Monthly infusion 30 g 0 09/14/20 21 Active Aspirin EC 81 MG Oral Tablet Delayed ReleaseIndicatio ns:Kidney replaced by transplant,Type 2 diabetes mellitus with hemoglobin A1c goal of less than 7.0% ([facility]) Take 1 Tablet by mouth in the morning. 0 Active Lidocaine 5 % External Patch (Lidoderm)Indica tions:Peripheral neuropathic pain Place 1 Patch topically on the skin daily. 12 hours ON and 12 hours OFF 30 Patch 5 11/04/19 23 Active Gvoke HypoPen 2-Pack 1 MG/0.2ML Subcutaneous Solution Auto-injector (Glucagon) Inject 1.0 mg under the skin of belly/thigh or upper arm as needed for unresponsiveness due to suspected hypoglycemia 0.4 mL 02/17/20 Active HumaLOG 100 UNIT/ML Subcutaneous Solution Use to fill Omnipod with 200 units every 2 days. E11.9 and Z96.41 30 mL 02/17/20 23 Active Dexcom G6 Pediatric Speech Therapist Device Use as directed 1 Each 0 02/17/20 23 Active Dexcom G6 Sensor Apply a new sensor every 10 days 9 Each 3 02/17/20 23 Active Dexcom G6 Transmitter Use with Sedicidodici continuous glucose sensor as directed by landscape architect and planner 1 Each 4 02/17/20 23 Active Mycophenolate Sodium 180 MG Oral Tablet Delayed Release (Myfortic)Indica tions:Kidney replaced by transplant,Need for prophylactic immunotherapy Take 360 mg by mouth in the morning and 360 mg before bedtime. 360 Tablet 3 03/28/20 23 Active Tamsulosin HCl 0.4 MG Oral Capsule (Flomax) TAKE 1 CAPSULE BY MOUTH EVERY DAY AT NIGHT 90 Capsule 3 04/18/20 23 Active HumaLOG KwikPen 100 UNIT/ML Subcutaneous Solution Pen-injectorIndi cations:Hypergly cemia,Type 2 diabetes mellitus with hemoglobin A1c goal of less than 7.0% (HCC) Inject 26 units plus sliding scale three times daily with meals. Needs up to 80 u/d 75 mL 3 04/28/20 23 Active dilTIAZem HCl ER Coated Beads 240 MG Oral Capsule Extended Release 24 Hour (Cardizem CD)Indications:C hronic coronary artery disease,HTN, goal below 130/80,S/P primary angioplasty with coronary stent,Paroxysmal atrial fibrillation (HCC) TAKE 1 CAPSULE BY MOUTH EVERY DAY 90 Capsule 3 05/03/20 Active Pregabalin 150 MG Oral Capsule (Lyrica) TAKE ONE CAPSULE BY MOUTH ONE TIME DAILY IN THE EVENING 90 Capsule 1 06/28/20 Active Omnipod 5 G6 Intro (Gen 5) Kit Use to administer insulin daily. Contains controller + 11 pods. 1 Kit 0 06/14/20 23 023 Discontinued Omnipod 5 G6 Pod (Gen 5) Use as directed. Use up to 200 units via insulin pod every 24 hours. 90 Each 3 07/08/20 23 023 Discontinued(Re fill) documented as of this encounter (statuses as [...] sleep apnea 05/21/2016 Overview: APAP 5-18 cwp 7/12/16 PSG: AHI 46.7, 21 mins <89% DHC [...] 7 Valent 012 Pneumococcal Polysaccharide PPV23 (Pneumovax) 09 /10/2012 SEASONAL INFLUENZA, PF, 6 M & Above, [...] encounter Miscellaneous Notes * Telephone Encounter - MATT Nobles - 07/25/2023 4:46 PM EDT Type Date User Summary Attachment Precert 07/25/2023 2:27 PM MATT Grady New or re-auth: New authorization - Note: New or re-auth: New authorization Approved/Denied: Approved Drug Name and Formulation: Omnipod 5 G6 Pod (Gen 5) How Prescribed(directions/sig): Use as directed. Use up to 200 units via insulin pod every 24 hours. Day Supply: 90 EACH / 90 DAYS Did you receive insurance information from outside the chart? No, received insurance information within the chart Valid auth start date: 07/06/2023 Valid auth end date: 10/02/2099 Rx Insurance Info: 90 EACH / 90 DAYS Rx Benefits Verified through/on date: EPIC 07/13/2023 Referral (TE) received from: Prescribing Clinic [facility] Medication Education Administrator II [facility] PH: [phone] 07/25/23, 2:26 PM * Telephone Encounter - MATT Nobles - 07/12/2023 3:30 PM EDT Images from the original note were not included. Retail Medicine Pre-Cert Request Medication/Disease State Information: Medication: Omnipod 5 G6 Pod (Gen 5) Directions for use: Use as directed. Use up to 200 units via insulin pod every 24 hours. Quantity prescribed: 90 Each Diagnosis (including ICD-10): Type 2 DM E11.9 Medication(s) Tried/Failed/Contraindicated: See corresponding visit note(s) for additional supporting clinical information. Office Information: Prescriber: Apurva Morrison Primary Visit Coverage Payer Plan Sponsor Code Group Number Group Name MEDICARE MEDICARE A AND B 1 Primary Visit Coverage Subscriber ID Name N Address [id number] MIRZA GILES [id number] [place] [phone] [place] [phone] documented in this encounter Plan of Treatment Upcoming Encounters Date Type Department Care Team (Late st Contact Info) Description 08/09/2023 9:00 AM EST Hem/Onc Treatment Hematology/Oncology Treatment, [address], [place] [address] Susan, Chair 10 Hem Onc [facility] [address] [place] [address] 08/24/2023 8:00 AM EST Office Visit Endocrinology, [place] [address] [place] [address] Codi Cam PA-C [address] [place] [address] 08/24/2023 8:30 AM EST Office Visit Transplant Clinic, [place] [address] [place] [address] Elder Rooney, [facility] [address] [place] [address] 12/28/2023 3:40 PM EDT Office Visit [address] [place] [address] Ivan Martinez MD [address] [place] [address] [place] [address] Health Maintenance Due Date Last Done Comments [...] this encounter Medical Devices Implanted Type Area Completion Supervisor Device Identifier Shelf Expiration Date Model / Serial / Lot Port Implant W/8f Poly Cath - [id number] Implanted:Qty : 1 on 05/12/2021 by Dong Ackerman, DO at OR [facility] Right: Chest CR BARD : PERIPHERAL VASCULAR [id number] 08/02/2021 [id number] / / [id number] documented as of this encounter Advance Directives [...] the patient have Health Care Power of Shingle Packer? No Full Code 09/24/2018 3:28 PM 09/25/2018 5:03 AM Thi s order reflects the patients wishes and were consensually agreed upon. Question Answer Comments Discussion of Advance Directives occurred with: Not Discussed Does the patient have a Living Will? No Does the patient have Health Care Power of Shingle Packer? No Care Teams Junior Project Coordinator Relationship Specialty Start Date End Date Rubio Dias MD [address] [place] [address] [place] [address] PCP - General Family Medicine 12/22/22 documented as of this encounter
--- OUTSIDE RECORDS SUMMARY | 2023-12-08 20:06 | External Medical Summary ---
Author Name Unknown Address Unknown Organization K09:[facility] [place] [address] Laboratory Report Ordering Provider Test Date Status TONY KRUEGER 07/12/2023 08:49:42 Final Observation Date Value Abnormality Reference (Units ) Status WBC, Total 07/12/2023 08:49:42 6.10 4.00-10.8 0 (K/uL) Final RBC 07/12/2023 08:49:42 4.84 4.50-5.25 (M/uL) Final Hemoglobin 07/12/2023 08:49:42 14.3 14.0-16.8 (g/dL) Final HCT 07/12/2023 08:49:42 42.4 40.0-48.4 (%) Final MCV 07/12/2023 08:49:42 87.6 82.0-99.5 (fL) Final MCH 07/12/2023 08:49:42 29.5 27.0-34.0 (pg) Final MCHC 07/12/2023 08:49:42 33.7 32.0-36.0 (g/dL) Final RDW 07/12/2023 08:49:42 13.9 11.5-15.5 (%) Final Platelets 07/12/2023 08:49:42 195 140-400 (K /uL) Final MPV 07/12/2023 08:49:42 10.8 6.6-11.1 ( fL) Final Performing Location [facility] [place] [address]
--- OUTSIDE RECORDS SUMMARY | 2023-12-08 20:06 | External Medical Summary ---
Author Name Unknown Address Unknown Organization : Laboratory Report Ordering Provider Test Date Status TONY KRUEGER 07/12/2023 08:49:42 Final Observation Date Value Abnormality Reference (Units ) Status Source 07/12/2023 08:49:42 Whole Blood Final BK virus DNA 07/12/2023 08:49:42 Not Detected (copies/mL) Final BK virus DNA [Log #/volume] (viral load) in Specimen by PAULINE with probe detection 07/12/2023 08:49:42 Not Detected (Log cps/mL) Final Reference Range: Not Detecte d
This test was developed and its analytical performance
characteristics have been determined by [employer]
[place], [place]. It has
not been cleared or approved by the U.S. Food and Drug
Administration. This assay has been validated pursuant
to the CLIA regulations and is used for clinical
purposes.

Test Performed at:
[facility]
[address] [facility]
[place], [place] [address]
Mauricio Soriano M.D., Ph.D.,Director of Laboratories Performing Location
--- OUTSIDE RECORDS SUMMARY | 2023-12-08 20:06 | External Medical Summary | Summary of Care ---
Author Name Unknown Organization [facility] Address [address] [place] [address] Phone [phone] Care Team Providers Care Slag Wheeler Name Role Phone Rubio Dias MD Primary Care Provider Reason for Visit * Reason Onset Date Comments Advice 07/18/2023 Encounter Details Date Type Department Care Team Description [facility] [address] [place] [address] Services, [facility] [address] [place] [address] Advice Allergies Active Allergy Reactions Severity Noted Date Comments Bee Venom 04/03/2002 Ondansetron Hcl Edema Other 07/12/2017 All over swelling documented as of this encounter (statuses as of 07/18/2023) Medications Medication Sig Dispensed Refills Start Date [...] 30 mL 11 02/16/2023 Active Dexcom G6 Filter Helper Device Use as directed 1 Each 0 02/16/2023 Active Dexcom G6 Sensor Apply a new sensor every 10 days 9 Each 3 02/16/2023 Active Dexcom G6 Transmitter Use with dex com continuous glucose sensor as directed by classified advertising supervisor 1 Each 4 02/16/2023 Active Mycophenolate Sodium [...] as of this encounter (statuses as of 07/18/2023) Active Problems Problem Noted Date Charcot's joint [...] as of this encounter (statuses as of 07/18/2023) Resolved Problems Problem Noted Date Resolved Date [...] as of this encounter (statuses as of 07/18/2023) Immunizations Name Administration Dates Next Due PPD [...] Miscellaneous Notes * Telephone Encounter - MATT Dubon - 07/18/2023 2:34 PM EDT Delphine from Dr Garcia's office in [place] (Vascular surgery) called - pt was seen today and his AV fistula is clotted off - they are looking for recommendations for a anticoag medication. Please call office at [phone] 3:09 PM. 07/18/23 Called office number above regarding this concern. I had to leave a Voice-mail. There are no contraindications for anticoagulation. I advised they can use whatever the vascular surgeon would like to use. Gave them our callback number [phone], Option #3 and ask for me personally. Michael Wild RN, [facility] Functional Skills Tutor Transplant and Liver Surgery Department [facility] [phone] documented in this encounter Plan of Treatment Upcoming Encounters Date Type Specialty Care Team Description 08/09/2023 Hem/Onc Treatment Hematology [place], Chair 10 Hem Onc [address] [place], [place] [address] 08/24/2023 Office Visit Endocrinology Codi Cam PA-C [address] [place], [place] [phone] 08/24/2023 Office Visit Transplant Clinic Elder Rooney, [facility] [address] [place] [address] 12/28/2023 Office Visit Family Medicine Ivan Martinez MD [address] [place] [address] [place] [address] Health Maintenance Due Date Last Done Comments [...] this encounter Medical Devices Implanted Type Area Vein Pumper Device Identifier Shelf Expiration Date Model / Serial / Lot Port Implant W/8f Poly Cath - [id number] Implanted:Qty : 1 on 05/12/2021 by Dong Ackerman, DO at OR [facility] Right: Chest CR BARD : PERIPHERAL VASCULAR [id number] 08/02/2021 [id number] / / [id number] documented as of this encounter Advance Directives [...] the patient have Health Care Power of Child Psychologist? No Full Code 09/24/2018 3:28 PM 09/25/2018 5:03 AM Thi s order reflects the patients wishes and were consensually agreed upon. Question Answer Comments Discussion of Advance Directives occurred with: Not Discussed Does the patient have a Living Will? No Does the patient have Health Care Power of Child Psychologist? No Care Teams Slag Wheeler Relationship Specialty Start Date End Date Rubio Dias MD [address] [place] [address] [place] [address] PCP - General Family Medicine 12/22/22 documented as of this encounter
--- OUTSIDE RECORDS SUMMARY | 2023-12-08 20:06 | External Medical Summary | Summary of Care ---
Author Name Unknown Organization [facility] Address [address] [place] [address] Phone [phone] Care Team Providers Care Process Improvement Analyst Name Role Phone Geoffrey Rinaldi MD Primary Care Provider Reason for Visit * Reason Comments eRx-Medication Refill Encounter Details Date Type Department Care Team Description 06/28/2023 Refill Ancillary, [place] [address] [place] [address] Geoffrey Rinaldi MD [address] [place] [address] [place] [address] Allergies Active Allergy Reactions Severity Noted Date Comments Bee Venom 04/03/2002 Ondansetron Hcl Edema Other 07/12/2017 All over swelling documented as of this encounter (statuses as of 06/28/2023) Medications Medication Sig Dispensed Refills Start Date [...] prep 5 g 5 05/06/20 21 Active Lidocaine-Priloca ine 2.5-2.5 % External Cream [...] hemoglobin A1c goal of less than 7.0% ([facility]) Take 1 Tablet by mouth in [...] due to suspected hypoglycemia 0.4 mL 02/17/20 23 Active HumaLOG 100 UNIT/ML Subcutaneous Solution Use to fill Omnipod with 200 units every 2 days. E11.9 and Z96.41 30 mL 02/17/20 23 Active Dexcom G6 Engineering Programmer Device Use as directed 1 Each 0 02/17/20 23 Active Dexcom G6 Sensor Apply a new sensor every 10 days 9 Each 02/17/20 23 Active Dexcom G6 Transmitter Use with dex com continuous glucose sensor as directed by high speed warper tender 1 Each 4 02/17/20 23 Active Mycophenolate [...] MOUTH EVERY DAY 90 Capsule 3 05/03/20 23 Active Omnipod 5 G6 Intro (Gen 5) Kit Use to administer insulin daily. Contains controller + 11 pods. 1 Kit 0 06/14/20 Active Omnipod 5 G6 Pod (Gen 5) Use a new pod every36 hours to administer insulin 15 Each 11 06/14/20 Active Pregabalin 150 MG Oral Capsule (Lyrica) TAKE ONE CAPSULE BY MOUTH ONE TIME DAILY IN THE EVENING 90 Capsule 1 06/28/20 23 Active Pregabalin 150 MG Oral Capsule (Lyrica) Take 1 Capsule by mouth every evening. 90 Capsule 1 12/23/19 23 023 Discontinued documented as of this encounter (statuses as of 06/28/2023) Active Problems Problem Noted Date Charcot's joint [...] as of this encounter (statuses as of 06/28/2023) Resolved Problems Problem Noted Date Resolved Date [...] as of this encounter (statuses as of 06/28/2023) Immunizations Name Administration Dates Next Due PPD 11/27/2014,07/18/2012 Seasonal Influenza, PF, 6 mo ns & Above, IM , (Flulaval) 06/14/2018 Seasonal Influenza, Quadrivalent, No Preserve, I [...] encounter Miscellaneous Notes * Telephone Encounter - Geoffrey Rinaldi MD - 06/28/2023 1:26 PM EDTSigned Prescriptions: Disp Refills Pregabalin 150 MG Oral Capsule (Lyrica) 90 Cap*1 Sig: TAKE ONE CAPSULE BY MOUTH ONE TIME DAILY IN THE EVENINGAuthorizing Provider: GEOFFREY RINALDI documented in this encounter Plan of Treatment Upcoming Encounters Date Type Specialty Care Team Description 06/28/2023 Office Visit Family Medicine Geoffrey Rinaldi MD [address] [place] [address] [place] [address] 07/12/2023 Hem/Onc Treatment Hematology [place], Chair [address] Hem Onc [address] [place] [address] 08/24/2023 Office Visit Endocrinology Codi Cam PA-C [address] [place] [address] 08/24/2023 Office Visit Transplant Clinic Elder Rooney, [facility] [address] [place] [address] Health Maintenance Due Date Last Done Comments Hepatitis B (1 of 3 - 3-dose series) 1964 COVID-19 Vaccine (#1) 1969 Pneumococcal Vaccine: Pediatrics (0 to 5 Years) and At-Risk Patients (6 to 64 Years) (1 - PCV) 1970 Depression Screening 1976 DTaP,Tdap,and Td Vaccines (1 - Tdap) 12/24/1983 Zoster Vaccines (1 of 2) 12/24/1983 Cologuard 2009 Colonoscopy 2009 Colorectal Cancer Screening 2009 Fecal Occult Blood Test 2009 Sigmoidoscopy 2009 DIABETES-EYE EXAM 01/05/2017 01/06/2016, , 01/06/2016, Additional history exists Influenza Vaccine (FLU shot) (#1) 2023 08/14/2019, 06/30/2018, 06/14/2018, Additional history exists HbA1c 08/24/2023 02/21/2023, 01/31, 11/03/2022, Additional history exists Diabetic Foot Exam 02/17/2024 02/16/2023, 08/26/2006 Albumin/Creatinine Ratio 06/14/2024 023, 04/19/2023, 02/21/2023, Additional history exists GFR 06/14/2024 06/14/2023, 05/03, 04/19/2023, Additional history exists GARDASIL-HPV IMMUNIZATION SERIES Aged Out No longer eligible based on patient's age to complete this topic MENINGOCOCCAL (MENACTRA/MENVEO) Aged Out No longer eligible based on patient's age to complete this topic documented as of this encounter Medical Devices Implanted Type Area Portuguese Tutor Device Identifier Shelf Expiration Date Model / Serial / Lot Port Implant W/8f Poly Cath - [id number] Implanted:Qty : 1 on 05/12/2021 by Dong Ackerman, at OR [facility] Right: Chest CR BARD : PERIPHERAL VASCULAR [id number] 08/02/2021 [id number] / / [id number] documented as of this encounter Advance Directives [...] the patient have Health Care Power of Mechanical Cad Designer? No Full Code 09/24/2018 3:28 PM 09/25/2018 5:03 AM Thi s order reflects the patients wishes and were consensually agreed upon. Question Answer Comments Discussion of Advance Directives occurred with: Not Discussed Does the patient have a Living Will? No Does the patient have Health Care Power of Mechanical Cad Designer? No Care Teams Process Improvement Analyst Relationship Specialty Start Date End Date Geoffrey Rinaldi MD [address] [place] [address] [place] [id number] PCP - General Family Medicine 12/22/22 documented as of this encounter
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
--- OUTSIDE RECORDS SUMMARY | 2023-12-08 20:06 | External Medical Summary | Summary of Care ---
Author Name Unknown Organization [facility] Address [address] [place] [address] Phone [phone] Care Team Providers Care Personal Financial Counselor Name Role Phone Rubio Dias MD Primary Care Provider [phone] Reason for Visit * Reason Onset Date Comments Precert Approved 06/14/2023 OMNIPOD Encounter Details Date Type Department Care Team Description 06/14/2023 Telephone Endocrinology, [place] [address], [place] [id number] Alicia Pittman MD [address] [place] [address] Precert Approved ( OMNIPOD) Allergies Active Allergy Reactions Severity Noted Date Comments Bee Venom 04/03/2002 Ondansetron Hcl Edema Other 07/12/2017 All over swelling documented as of this encounter (statuses as of 06/16/2023) Medications Medication Sig Dispensed Refills Start Date [...] Apply topically to affected area as needed ([facility] site prior to Monthly infusion). Apply to [facility] site prior to Monthly infusion 30 g 0 09/14/2021 Active Aspirin EC 81 MG Oral Tablet Delayed ReleaseIndications :Kidney replaced by transplant,Type 2 diabetes mellitus with hemoglobin A1c goal of less than 7.0% ([facility]) Take 1 Tablet by mouth in the morning. 0 Active Lidocaine 5 % External Patch (Lidoderm)Indicati ons:Peripheral neuropathic pain Place 1 Patch topically on the skin daily. 12 hours ON and 12 hours OFF 30 Patch 5 11/04/2022 Active Pregabalin 150 MG Oral Capsule (Lyrica) Take 1 Capsule by mouth every evening. 90 Capsule 1 12/22/2022 Active Gvoke HypoPen 2-Pack 1 MG/0.2ML Subcutaneous Solution Auto-injector (Glucagon) Inject 1.0 mg under the skin of belly/thigh or upper arm as needed for unresponsiveness due to suspected hypoglycemia 0.4 mL 11 02/16/2023 Active HumaLOG 100 UNIT/ML Subcutaneous Solution Use to fill Omnipod with 200 units every 2 days. E11.9 and Z96.41 30 mL 11 02/16/2023 Active Dexcom G6 Solid Tire Finisher Device Use as directed 1 Each 0 02/16/2023 Active Dexcom G6 Sensor Apply a new sensor every 10 days 9 Each 3 02/16/2023 Active Dexcom G6 Transmitter Use with [employer] continuous glucose sensor as directed by technology lab teacher 1 Each 4 02/16/2023 Active Mycophenolate Sodium [...] administer insulin 15 Each 11 06/14/2023 Active documented as of this encounter (statuses as of 06/16/2023) Active Problems Problem Noted Date Charcot's joint [...] as of this encounter (statuses as of 06/16/2023) Resolved Problems Problem Noted Date Resolved Date [...] as of this encounter (statuses as of 06/16/2023) Immunizations Name Administration Dates Next Due PPD [...] encounter Miscellaneous Notes * Telephone Encounter - Opal Roque - 06/16/2023 8:24 AM EDT Type Date User Summary Attachment Precert 06/16/2023 6:26 AM MATT Dow - - Note: New or re-auth: New authorization Approved/Denied: Approved Drug Name and Formulation: Omnipod 5 G6 Intro How Prescribed(directions/sig): Use to administer insulin daily. Day Supply: 30 Did you receive insurance information from outside the chart? No, received insurance information within the chart Valid auth start date: 05/16/23 Valid auth end date: 10/02/2099 Rx [facility] Benefits Verified through/on date: [facility] 06/15 Referral (TE) received from: Prescribing Clinic Heidi Burnett Medication Social Science Manager [facility] 06/16/23,6:24 AM . Type Date User Summary Attachment Precert 06/15/2023 10:42 AM MATT Dow - - Note: [facility] Authorization Submission Submission Information: Medication: Omnipod 5 G6 Intro (Gen 5) Kit Portal used: [facility] Insurance: [employer] Authorization #/Burrell: [id number] * Telephone Encounter - Opal Roque - 06/14/2023 2:37 PM EDT Images from the original note were not included. Retail [facility] Pre-Cert Request Medication/Disease State Information: Medication: Omnipod 5 G6 Intro (Gen 5) Kit Directions for use: Use to administer insulin daily. Contains controller + 11 pods. Quantity prescribed: 1 Kit Diagnosis (including ICD-10): E11.9 Medication(s) Tried/Failed/Contraindicated: See corresponding visit note(s) for additional supporting clinical information. Office Information: Prescriber: [place] [id number] Primary Visit Coverage Payer Plan Sponsor Code Group Number Group Name MEDICARE MEDICARE A AND B 1 Primary Visit Coverage Subscriber ID Name SSN Address [id number] MIRZA GILES [id number] [place] [id number] Secondary Visit Coverage Payer Plan Sponsor Code Group Number Group Name [facility] MEDICAID [facility] [id number] Secondary Visit Coverage Subscriber ID Name N Address [id number] MIRZA GILES [id number] [place] [phone] documented in this encounter Plan of Treatment Upcoming Encounters Date Type Specialty Care Team Description 06/28/2023 Office Visit Family Medicine Rubio Dias MD [address] [place] [address] [place] [id number] 07/12/2023 Hem/Onc Treatment Hematology [facility] [place], Chair 11 Hem Onc Scenery [address] [place] [address] 08/24/2023 Office Visit Endocrinology Codi Cam PAGalinaC [address] [place] [address] 08/24/2023 Office Visit Transplant Clinic Elder Rooney DNP [address] [place] [address] Health Maintenance Due Date Last Done Comments [...] this encounter Medical Devices Implanted Type Area Wholesale And Retail Merchant Device Identifier Shelf Expiration Date Model / Serial / Lot Port Implant W/8f Poly Cath - [id number] Implanted:Qty : 1 on 05/12/2021 by Dong Ackerman DO at OR [facility] Right: Chest CR BARD : PERIPHERAL VASCULAR [id number] 08/02/2021 [id number] / / [id number] documented as of this encounter Advance Directives [...] the patient have Health Care Power of Dry Cleaning Machine Operator? No Full Code 09/24/2018 3:28 PM 09/25/2018 5:03 AM Thi s order reflects the patients wishes and were consensually agreed upon. Question Answer Comments Discussion of Advance Directives occurred with: Not Discussed Does the patient have a Living Will? No Does the patient have Health Care Power of Dry Cleaning Machine Operator? No Care Teams Personal Financial Counselor Relationship Specialty Start Date End Date Rubio Dias MD [address] [place] [address] [place] [phone] PCP - General Family Medicine 12/22/22 documented as of this encounter
--- OUTSIDE RECORDS SUMMARY | 2023-12-08 20:06 | External Medical Summary | Summary of Care ---
Author Name Unknown Organization [facility] Address [address] [facility] [place] [address] Phone [phone] Care Team Providers Care Safety Consultant Name Role Phone Rubio Dias MD Primary Care Provider Reason for Visit * Reason Comments Acute Encounter Details Date Type Department Care Team Description 07/15/2023 Office Visit Family Medicine [address] [address] Shana Martin PA-C [address] [place] [address] [place] [address] Swelling of arm* Allergies Active Allergy Reactions Severity Noted Date Comments Bee Venom 04/03/2002 Ondansetron Hcl Edema Other 07/12/2017 All over swelling documented as of this encounter (statuses as of 07/15/2023) Medications Medication Sig Dispensed Refills Start Date [...] hemoglobin A1c goal of less than 7.0% ([facility]) Take 1 Tablet by mouth in [...] 30 mL 02/17/20 23 Active Dexcom G6 Casing Blower Device Use as directed 1 Each 0 02/17/20 23 Active Dexcom G6 Sensor Apply a new sensor every 10 days 9 Each 3 02/17/20 23 Active Dexcom G6 Transmitter Use with dex com continuous glucose sensor as directed by mat machine tender 1 Each 4 02/17/20 23 Active [...] DAY 90 Capsule 3 05/03/20 23 Active Pregabalin 150 MG Oral Capsule (Lyrica) TAKE ONE CAPSULE BY MOUTH ONE TIME DAILY IN THE EVENING 90 Capsule 1 06/28/20 23 Active Omnipod 5 G6 Intro (Gen 5) Kit Use to administer insulin daily. Contains controller + 11 pods. 1 Kit 0 06/14/20 23 023 Discontinued Omnipod 5 G6 Pod (Gen 5) Use as directed. Use up to 200 units via insulin pod every 24 hours. 90 Each 3 07/08/20 23 023 Discontinued(Re fill) documented as of this encounter (statuses as of 07/15/2023) Active Problems Problem Noted Date Charcot's joint [...] as of this encounter (statuses as of 07/15/2023) Resolved Problems Problem Noted Date Resolved Date [...] as of this encounter (statuses as of 07/15/2023) Immunizations Name Administration Dates Next Due PPD [...] Sign Reading Time Taken Comments Blood Pressure 110/60 07/15/2023 11:58 AM EDT Pulse 90 07/15/2023 11:58 AM EDT Temperature 36.9 C (98.4 F) 07/15/2023 1 1:58 AM EDT Respiratory Rate - - Oxygen Saturation 99% 07/15/2023 11: 58 AM EDT Inhaled Oxygen Concentration - - Weight 109.1 kg (240 lb 9.6 oz) 023 11:58 AM EDT Height - - Body Mass Index 30.07 03/16/2023 1:54 PM EDT documented in this [...] as of this encounter Progress Notes * Shana Martin PA-C - 07/15/2023 12:03 PM EDT Nursing Notes: Quan Calderon, CAUL DRESSER 07/15/23 1159 Signed Chief Complaint Patient presents with Acute Left bicep red , swollen , painful. No fevers. Having Chills Fistula at site. Placed around 2012 Fistula has not been used for 5 years Pt had Kidney transplant 2020 so Fistula is no longer needed Went to [facility] yesterday and after sitting for 5 hours he left with out being seen 1 mo ago went to [facility] to have abscess drained left lower abd and was treated with doxy and Keflex. Pt states site did not improve Central of would tissue and foul smelling. No sign infection The patient has been properly identified by confirmation of name and date of . Pt here today with swelling over left biceps/old fistula site. It started yesterday. He has swelling, redness, hot to touch, tenderness. Pt worried about a blockage. Pt hasn't used the fistula for 5 years. He had a kidney transplant and hasn't needed it. Pt did go to ER yesterday and they brought him back. Had labs and chest xray and then they had him sit for 5 hours, so he left. Pt has mild fever, chills. Review of patient's allergies indicates: Allergen Reactions Bee Venom Zofran [Ondansetron Hcl] Edema Other All over swelling Current Outpatient Medications Medication Sig Dispense Refill [...] [facility] to [facility] Apply to [facility] site prior to Monthly infusion [...] and Z96.41 30 mL 11 Dexcom G6 Casing Blower Device Use as directed 1 Each 0 Dexcom G6 Sensor Apply a new sensor every 10 days 9 Each 3 Dexcom G6 Transmitter Use with Livemocha continuous glucose sensor as directed by mat machine tender 1 Each4 Mycophenolate Sodium 180 MG Oral [...] controller + 11 pods. 1 Kit 0 Pregabalin 150 MG Oral Capsule (Lyrica) TAKE ONE CAPSULE BY MOUTH ONE TIME DAILY IN THE EVENING 90 Capsule 1 Omnipod 5 G6 Pod (Gen 5) Use as directed. Use up to 200 units via insulin pod every 24 hours. 90 Each 3 No current facility-administered medications for this visit. Past Medical History: Diagnosis Date Acute prostatitis 12/01/1985 seen in [facility] ER and treated with tetracycline Autonomic [...] ESRD (end stage renal disease) on dialysis ([facility]) Fluctuating blood pressure positional Gastric paresis Hypertension Impotence of organic origin Kidney failure Kidney replaced by transplant 09/24/2018 Multiple closed fractures of cervical vertebrae ([facility]) 09/12/2019 C3 bilateral pedicle and body fracture, C6-7 spinous process fracture Orthostatic hypotension 10/11/2013 PDR (proliferative diabetic retinopathy) ([facility]) OU Poisoning by drug or medicinal substance 09/21/1982 took 32 grams Tylenol as attempted suicide, referred to [facility] Pre-transplant evaluation for ESRD (end stage renal disease) 11/15/2012 S/P primary angioplasty with coronary stent 10/11/2013 Severe sleep apnea 03/21/2016 Thoracic spine fracture ([facility]) 09/12/2019 Age indeterminate T1 and T3 superior endplate fx Tobacco use disorder Vitreous hemorrhage, right eye ([facility]) Social History Socioeconomic History Marital status: Spouse name: Not on file Number of children: Not on file Years of education: Not on file Highest education level: Not on file Occupational History 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 GENERAL: alert, healthy, and no distress EXTREMITIES: left upper arm - edema, erythema, hot to touch, over fistula site. A:Swelling of arm (Primary) Pt needs to go back to ER. Will call [facility] and let him know that he is coming. Any questions/problems, please call. If anything changes, worsens, develops new sx, please call [facility]. Follow Up: Return if symptoms worsen or fail to improve. Shana Martin PA-C documented in this encounter Nursing Notes * Quan Calderon LPN - 07/15/2023 11:52 AM EDT Chief Complaint Patient presents with Acute Left bicep red , swollen , painful. No fevers. Having Chills Fistula at site. Placed around 2012 Fistula has not been used for 5 years Pt had Kidney transplant 2020 so Fistula is no longer needed Went to [facility] yesterday and after sitting for 5 hours he left with out being seen 1 mo ago went to [facility] to have abscess drained left lower abd and was treated with doxy and Keflex. Pt states site did not improve Central of would tissue and foul smelling. No sign infection The patient has been properly identified by confirmation of name and date of . documented in this encounter Plan of Treatment Upcoming Encounters Date Type Specialty Care Team Description 08/09/2023 Hem/Onc Treatment H[facility]ology [facility], Chair 10 Hem Onc [address] [place] [address] 08/24/2023 Office Visit Endocrinology Codi Cam PA-C [address] [place] [address] 08/24/2023 Office Visit Transplant Clinic Elder Rooney, LIBERTAD [address] [place] [address] 12/28/2023 Office Visit Family Medicine Ivan Martinez MD [address] [place] [address] [place] [address] Health Maintenance Due Date Last Done Comments [...] this encounter Medical Devices Implanted Type Area Telephone Cleaner Device Identifier Shelf Expiration Date Model / Serial / Lot Port Implant W/8f Poly Cath - [id number] Implanted:Qty : 1 on 05/12/2021 by Dong Ackerman, at OR [facility] Right: Chest CR BARD : PERIPHERAL VASCULAR [id number] 08/02/2021 [id number] / / [id number] documented as of this encounter Visit Diagnoses Diagnosis Swelling of arm- Primary Swelling of limb documented in this encounter Advance Directives Latest [...] the patient have Health Care Power of Windows Server Support Technician? No Full Code 09/24/2018 3:28 PM 09/25/2018 5:03 AM Thi s order reflects the patients wishes and were consensually agreed upon. Question Answer Comments Discussion of Advance Directives occurred with: Not Discussed Does the patient have a Living Will? No Does the patient have Health Care Power of Windows Server Support Technician? No Care Teams Safety Consultant Relationship Specialty Start Date End Date Rubio Dias MD [address] [place] [address] [place] [phone] PCP - General Family Medicine 12/22/22 documented as of this encounter
--- OUTSIDE RECORDS SUMMARY | 2023-12-08 20:06 | External Medical Summary ---
Author Name Unknown Address Unknown Organization [id number]:[facility] [place] [address] Laboratory Report Ordering Provider Test Date Status TONY KRUEGER 07/12/2023 08:49:42 Final Observation Date Value Abnormality Reference (Units ) Status BUN 07/12/2023 08:49:42 12 6-20 (mg/dL) Final Creatinine 07/12/2023 08:49:42 0.9 0.6-1.2 (mg/dL) Final Glomerular filtration rate/1.73 sq M.predicted [Volume Rate/Area] in Serum, Plasma or Blood by Creatinine-based formula (CKD-EPI) 07/12/2023 08:49:42 >90 >=60 (mL/min) Final eGFR is calculated based on the CKD-EPI 2020 equation SODIUM 07/12/2023 08:49:42 135 135-146 (m mol/L) Final Potassium 07/12/2023 08:49:42 4.3 3.5-5.1 (m mol/L) Final Cl 07/12/2023 08:49:42 101 98-107 (mm ol/L) Final CO2 07/12/2023 08:49:42 24 22-32 (mmo l/L) Final Anion gap 07/12/2023 08:49:42 10 7-15 (mmol /L) Final Glucose 07/12/2023 08:49:42 331 Above high normal 70 -120 (mg/dL) Final Calcium 07/12/2023 08:49:42 9.9 8.4-10.2 ( mg/dL) Final Performing Location [facility] [place] [address]
--- OUTSIDE RECORDS SUMMARY | 2023-12-08 20:06 | External Medical Summary ---
Author Name Unknown Address Unknown Organization [id number]:[facility] - [address] [address] Laboratory Report Ordering Provider Test Date Status TONY KRUEGER 07/12/2023 11:04:46 Final Normal: <30 mg/g creatinine< br/>High: 30-300 mg/g creatinine
Very High: >300 mg/g creatinine
Nephrotic: >2200 mg/g creatinine Observation Date Value Abnormality Reference (Units ) Status Albumin, Urine 07/12/2023 11:04:46 <1.20 (mg/dL) Final Creatinine, Urine 07/12/2023 11:04:46 110 (mg/dL) Final Albumin/Creatinine [Mass Ratio] in Urine 07/12/2023 11:04:46 <11 <30 (mg/g Creat) Final Performing Location [facility] - [address] [place] [address]
--- OUTSIDE RECORDS SUMMARY | 2023-12-08 20:06 | External Medical Summary ---
Author Name Unknown Address Unknown Organization K09:[facility] [address] [place] [address] Laboratory Report Ordering Provider Test Date Status TONY KRUEGER 07/12/2023 08:49:42 Final Observation Date Value Abnormality Reference (Units ) Status SYNC LEUKOCYTES IN BLOOD BY AUTOMATED COUNT 07/12/2023 08:49:42 6.10 4.00-10.80 (K/uL) Final Neutrophils/100 leukocytes in Blood by Manual count 07/12/2023 08:49:42 65.0 40.0-75.0 (%) Final Lymphocytes/100 leukocytes in Blood by Manual count 07/12/2023 08:49:42 19.0 18.0-42.0 (%) Final Monocytes/100 leukocytes in Blood by Manual count 07/12/2023 08:49:42 12.0 Above high normal 1.0-11.0 (%) Final Eosinophils/100 leukocytes in Blood by Manual count 07/12/2023 08:49:42 2.0 0.0-6.0 (%) Final Basophils/100 leukocytes in Blood by Manual count 07/12/2023 08:49:42 1.0 0.0-2.0 (%) Final Metamyelocytes/100 leukocytes in Blood by Manual count 07/12/2023 08:49:42 1.0 Above high normal <=0.0 (%) Final Neutrophils [#/volume] in Blood by Manual count 07/12/2023 08:49:42 3.97 1.80-7.70 (K/uL) Final Lymphocytes [#/volume] in Blood by Manual count 07/12/2023 08:49:42 1.16 1.00-4.80 (K/uL) Final Monocytes [#/volume] in Blood by Manual count 07/12/2023 08:49:42 0.73 0.00-1.10 (K/uL) Final Eosinophils [#/volume] in Blood by Manual count 07/12/2023 08:49:42 0.12 0.00-0.70 (K/uL) Final Basophils [#/volume] in Blood by Manual count 07/12/2023 08:49:42 0.06 0.00-0.20 (K/uL) Final Metamyelocytes [#/volume] in Blood by Manual count 07/12/2023 08:49:42 0.06 Above high normal <=0.00 (K/uL) Final Nucleated erythrocytes/100 leukocytes [Ratio] in Blood by Automated count 07/12/2023 08:49:42 Final Performing Location [facility] [address] [place] [address]
--- OUTSIDE RECORDS SUMMARY | 2023-12-08 20:06 | External Medical Summary | Summary of Care ---
Author Name Unknown Organization [facility] Address [address] [place] [address] Phone [phone] Care Team Providers Care Runner Worker Name Role Phone Rubio Dias MD Primary Care Provider [phone] Reason for Visit * Reason Onset Date Comments Advice 07/18/2023 Encounter Details Date Type Department Care Team Description [facility] [address] [place] [address] Services, [facility], [facility] [address] [place] [address] Advice Allergies Active Allergy Reactions Severity Noted [...] mL 11 02/16/2023 Active Dexcom G6 Manager Mba Device Use as directed 1 Each 0 02/16/2023 Active Dexcom G6 Sensor Apply a new sensor every 10 days 9 Each 3 02/16/2023 Active Dexcom G6 Transmitter Use with dex com continuous glucose sensor as directed by investment banker 1 Each 4 02/16/2023 Active Mycophenolate Sodium [...] EDT Delphine from Dr Garcia's office in [place] (Vascular surgery) called - pt was seen today and his AV fistula is clotted off - they are looking for recommendations for a anticoag medication. Please call office at [phone] documented in this encounter Plan of Treatment Upcoming Encounters Date Type Specialty Care Team Description 08/09/2023 Hem/Onc Treatment Hematology [facility], Chair [address] Hem Onc Scenery [address] [place] [address] 08/24/2023 Office Visit Endocrinology Codi Cam PA-C [address] [place] [address] 08/24/2023 Office Visit Transplant Clinic Elder Rooney DNP [address] [place] [address] 12/28/2023 Office Visit Family Medicine Ivan Martinez MD [address] [place] [address] [place] [phone] Health Maintenance Due Date Last Done Comments [...] this encounter Medical Devices Implanted Type Area Scullion Chief Device Identifier Shelf Expiration Date Model / Serial / Lot Port Implant W/8f Poly Cath - [id number] Implanted:Qty : 1 on 05/12/2021 by Dong Ackerman DO at OR [facility] Right: Chest CR BARD : PERIPHERAL VASCULAR [id number] 08/02/2021 [id number] / / [id number] documented as of this encounter Advance Directives [...] the patient have Health Care Power of Coffee Maker? No Full Code 09/24/2018 3:28 PM 09/25/2018 5:03 AM Thi s order reflects the patients wishes and were consensually agreed upon. Question Answer Comments Discussion of Advance Directives occurred with: Not Discussed Does the patient have a Living Will? No Does the patient have Health Care Power of Coffee Maker? No Care Teams Runner Worker Relationship Specialty Start Date End Date Rubio Dias MD [address] [place] [address] [place]endo[place] [phone] PCP - General Family Medicine 12/22/22 documented as of this encounter
--- OUTSIDE RECORDS SUMMARY | 2023-12-08 20:06 | External Medical Summary ---
Author Name Unknown Address Unknown Organization : Laboratory Report Ordering Provider Test Date Status TONY KRUEGER 07/12/2023 08:49:42 Final Observation Date Value Abnormality Reference (Units ) Status Source 07/12/2023 08:49:42 Whole Blood Final Cytomegalovirus DNA [Units/volume] (viral load) in Specimen by PAULINE with probe detection 07/12/2023 08:49:42 Not Detected (IU/mL) Final Cytomegalovirus DNA [Log #/volume] (viral load) in Specimen by PAULINE with probe detection 07/12/2023 08:49:42 Not Detected (log IU/mL) Final REFERENCE RANGE: NOT DETECTE D
This test was developed and its analytical performance
characteristics have been determined by [employer] [place], [place]. It has
not been cleared or approved by the U.S. Food and Drug
Administration. This assay has been validated pursuant
to the CLIA regulations and is used for clinical
purposes.
For additional information, please refer to
http://education.[employer].com/faq/CMVandEBVPCR
(This link is being provided for informational/
educational purposes only.)

Test Performed at:
[facility]
[address] [facility]
[place] [address]
Mauricio Soriano M.D., Ph.D.,Director of Laboratories Performing Location
--- OUTSIDE RECORDS SUMMARY | 2023-12-08 20:06 | External Medical Summary | Summary of Care ---
Author Name Unknown Organization [facility] Address [address] [place] [address] Phone [phone] Care Team Providers Care Transportation Maintenance Supervisor Name Role Phone Rubio Dias MD Primary Care Provider Encounter Details Date Type Department Care Team Description 07/15/2023 Telephone [facility] [place] [address] [place] [address] Codi Cam PA-C [address] [place] [address] Allergies Active Allergy Reactions Severity Noted Date [...] goal of less than 7.0% ([facility]) Take 1 Tablet by mouth [...] 30 mL 02/17/20 23 Active Dexcom G6 Ductfixing Plumber Device Use as directed 1 Each 0 02/17/20 23 Active Dexcom G6 Sensor Apply a new sensor every 10 days 9 Each 3 02/17/20 23 Active Dexcom G6 Transmitter Use with dex com continuous glucose sensor as directed by automotive lube technician 1 Each 4 02/17/20 23 Active Mycophenolate [...] 1 06/28/20 23 Active Omnipod 5 G6 Pod (Gen 5) Use as directed. Use up to 200 units via insulin pod every 24 hours. 90 Each 3 07/15/20 23 Active Omnipod 5 G6 Intro (Gen [...] encounter Miscellaneous Notes * Telephone Encounter - KO Hilliard - 07/15/2023 12:01 PM EDT [facility] is requesting script clarification for OmniPod G6 Pods. Typically pods last 3 days, are we using a new pod every 24 hrs. Please verify. documented in this encounter Plan of Treatment Upcoming Encounters Date Type Specialty Care Team Description 08/09/2023 Hem/Onc Treatment Hematology [facility], Chair 10 Hem Onc Scenery [address] [place] [address] 08/24/2023 Office Visit Endocrinology Codi Cam PA-C [address] [place] [address] 08/24/2023 Office Visit Transplant Clinic Elder Rooney Vince, [facility] [address] [place], [place] [address] 12/28/2023 Office Visit Family Medicine vIan Martinez MD [address] [place] [address] [place] [address] Health Maintenance Due Date Last Done Comments [...] this encounter Medical Devices Implanted Type Area Commercial Credit Analyst Device Identifier Shelf Expiration Date Model / Serial / Lot Port Implant W/8f Poly Cath - [id number] Implanted:Qty : 1 on 05/12/2021 by Dong Ackerman, DO at OR [facility] Right: Chest CR BARD : PERIPHERAL VASCULAR [id number] 08/02/2021 [id number] / / [id number] documented as of this encounter Advance Directives [...] the patient have Health Care Power of Straddle Bug Driver? No Full Code 09/24/2018 3:28 PM 09/25/2018 5:03 AM Thi s order reflects the patients wishes and were consensually agreed upon. Question Answer Comments Discussion of Advance Directives occurred with: Not Discussed Does the patient have a Living Will? No Does the patient have Health Care Power of Straddle Bug Driver? No Care Teams Transportation Maintenance Supervisor Relationship Specialty Start Date End Date Rubio Dias MD [address] [place] [address] [place] Mendo[place] [phone] PCP - General Family Medicine 12/22/22 documented as of this encounter
--- OUTSIDE RECORDS SUMMARY | 2023-12-08 20:06 | External Medical Summary ---
Author Name Unknown Address Unknown Organization K09:[facility] [place] [address] Laboratory Report Ordering Provider Test Date Status TONY KRUEGER 07/12/2023 08:49:42 Final Observation Date Value Abnormality Reference (Units ) Status Magnesium 07/12/2023 08:49:42 2.0 1.5-2.6 (m g/dL) Final Performing Location [facility] [place] [place] [address]
--- OUTSIDE RECORDS SUMMARY | 2023-12-08 20:06 | External Medical Summary | Summary of Care ---
Author Name Unknown Organization [facility] Address [address] [place] [address] Phone [phone] Care Team Providers Care Music Library Assistant Name Role Phone Rubio Dias MD Primary Care Provider Reason for Visit * Reason Onset Date Comments Advice 07/18/2023 Encounter Details Date Type Department Care Team Description [facility] [address] [place] [address] Services, [facility] [address] [place] [address] Advice Allergies Active Allergy Reactions Severity Noted [...] 30 mL 11 02/16/2023 Active Dexcom G6 Soloist Dancer Device Use as directed 1 Each 0 02/16/2023 Active Dexcom G6 Sensor Apply a new sensor every 10 days 9 Each 3 02/16/2023 Active Dexcom G6 Transmitter Use with dex com continuous glucose sensor as directed by web operations manager 1 Each 4 02/16/2023 Active Mycophenolate Sodium [...] EDT Delphine from Dr Garcia's office in [place] (Vascular surgery) called - pt was seen today and his AV fistula is clotted off - they are looking for recommendations for a anticoag medication. Please call office at [phone] documented in this encounter Plan of Treatment Upcoming Encounters Date Type Specialty Care Team Description 08/09/2023 Hem/Onc Treatment Hematology [facility], Chair 10 Hem Onc Scenery [address] [place] [address] 08/24/2023 Office Visit Endocrinology Codi Cam PA-C [address] [place] [address] 08/24/2023 Office Visit Transplant Clinic Elder Rooney DNP [address] [place] [address] 12/28/2023 Office Visit Family Medicine Ivan Martinez MD [address] [place] [address] [place] Mendoza [phone] Health Maintenance Due Date Last Done Comments [...] this encounter Medical Devices Implanted Type Area Bank Note Designer Device Identifier Shelf Expiration Date Model / Serial / Lot Port Implant W/8f Poly Cath - [id number] Implanted:Qty : 1 on 05/12/2021 by Dong Ackerman DO at OR [facility] Right: Chest CR BARD : PERIPHERAL VASCULAR [id number] 08/02/2021 [id number] / / [id number] documented as of this encounter Advance Directives [...] the patient have Health Care Power of Personal Companion? No Full Code 09/24/2018 3:28 PM 09/25/2018 5:03 AM Thi s order reflects the patients wishes and were consensually agreed upon. Question Answer Comments Discussion of Advance Directives occurred with: Not Discussed Does the patient have a Living Will? No Does the patient have Health Care Power of Personal Companion? No Care Teams Music Library Assistant Relationship Specialty Start Date End Date Rubio Dias MD [address] [place] [address] [place] Mendoza [phone] PCP - General Family Medicine 12/22/22 documented as of this encounter
--- OUTSIDE RECORDS SUMMARY | 2023-12-08 20:06 | External Medical Summary | Summary of Care ---
Author Name Unknown Organization [facility] Address [address] [place] [address] Phone [phone] Care Team Providers Care Director Human Services Name Role Phone Rubio Dias MD Primary Care Provider Encounter Details Date Type Department Care Team Description 07/06/2023 Telephone [facility] [place] [address] [place] [address] Alicia Pittman MD [address] [place] [address] Allergies Active Allergy Reactions Severity Noted Date Comments Bee Venom 04/03/2002 Ondansetron Hcl Edema Other 07/12/2017 All over swelling documented as of this encounter (statuses as of 07/08/2023) Medications Medication Sig Dispensed Refills Start Date [...] A1c goal of less than 7.0% ([facility]) Take 1 Tablet by mouth in [...] 30 mL 02/17/20 23 Active Dexcom G6 Optometric Aide Device Use as directed 1 Each 0 02/17/20 Active Dexcom G6 Sensor Apply a new sensor every 10 days 9 Each 3 02/17/20 23 Active Dexcom G6 Transmitter Use with dex com continuous glucose sensor as directed by tub puller 1 Each 4 02/17/20 23 Active Mycophenolate [...] 11 pods. 1 Kit 0 06/14/20 Active Pregabalin 150 MG Oral Capsule (Lyrica) TAKE ONE CAPSULE BY MOUTH ONE TIME DAILY IN THE EVENING 90 Capsule 1 06/28/20 23 Active Omnipod 5 G6 Pod (Gen 5) Use as directed. Use up to 200 units via insulin pod every 24 hours. 90 Each 3 07/08/20 Active Omnipod 5 G6 Pod (Gen 5) Use a new pod every36 hours to administer insulin 15 Each 11 06/14/20 23 023 Discontinued documented as of this encounter (statuses as of 07/08/2023) Active Problems Problem Noted Date Charcot's joint [...] as of this encounter (statuses as of 07/08/2023) Resolved Problems Problem Noted Date Resolved Date [...] as of this encounter (statuses as of 07/08/2023) Immunizations Name Administration Dates Next Due PPD [...] * Telephone Encounter - KO Hilliard - 07/06/2023 2:17 PM EDT Pt's insurance will only cover at most changing pod every 48 hours. Please clarify and send new script. documented in this encounter Plan of Treatment Upcoming Encounters Date Type Specialty Care Team Description 07/12/2023 Hem/Onc Treatment H[facility]ology [place] [place], Chair 11 Hem Onc Scenery [address] [place] [phone] 08/24/2023 Office Visit Endocrinology Codi Cam PA-C [address] [place] [address] 08/24/2023 Office Visit Transplant Clinic Elder Rooney DNP [address] [place] [address] 12/28/2023 Office Visit Family Medicine Ivan Martinez MD [address] [place] [address] [place] [address] Health Maintenance Due Date [...] this encounter Medical Devices Implanted Type Area Automatic Screwmaker Device Identifier Shelf Expiration Date Model / Serial / Lot Port Implant W/8f Poly Cath - [id number] Implanted:Qty : 1 on 05/12/2021 by Dong Ackerman, DO at OR [facility] Right: Chest CR BARD : PERIPHERAL VASCULAR [id number] 08/02/2021 [id number] / / [id number] documented as of this encounter Advance Directives [...] the patient have Health Care Power of Ethanol Quality Leader? No Full Code 09/24/2018 3:28 PM 09/25/2018 5:03 AM Thi s order reflects the patients wishes and were consensually agreed upon. Question Answer Comments Discussion of Advance Directives occurred with: Not Discussed Does the patient have a Living Will? No Does the patient have Health Care Power of Ethanol Quality Leader? No Care Teams Director Human Services Relationship Specialty Start Date End Date Rubio Dias MD [address] [place] [address] [place] [address] PCP - General Family Medicine 12/22/22 documented as of this encounter
--- OUTSIDE RECORDS SUMMARY | 2023-12-08 20:06 | External Medical Summary | Summary of Care ---
Author Name Unknown Organization [facility] Address [address] [place] [address] Phone [phone] Care Team Providers Care Bar Host/Hostess Name Role Phone Rubio Dias MD Primary Care Provider Reason for Visit * Reason Comments IV Therapy Nulojix * Episode Based Medications (Routine) - Authorized Specialty Diagnoses / Procedures Referred By Bob banerjee Referred To Contact Diagnoses Kidney replaced by transplant Procedures MD BELATACEPT INJECTION Elder Rooney, DNP [address] [place] [address] Anc Hem/Onc Scenery [place] [address] [place] [phone] Referral ID Status Reason Start Date Expiration Date V isits Requested Visits Authorized [id number] Authorized 12/28/2021 10/02/2099 99 99 Encounter Details Date Type Department Care Team Description 07/12/2023 Hem/Onc Treatment Hematology/Oncology Treatment, [place] [address] [place] [phone] [place], Chair 11 Hem Onc Scenery [address] [place] [address] Kidney replaced by transplant*; Need for prophylactic immunotherapy; Immunosuppressive management encounter following kidney transplant Allergies Active Allergy Reactions Severity Noted Date Comments Bee Venom 04/03/2002 Ondansetron Hcl Edema Other 07/12/2017 All over swelling documented as of this encounter (statuses as of 07/12/2023) Medications Medication Sig Dispensed Refills Start Date [...] [facility] site prior to Monthly infusion 30 g 0 09/14/2021 Active Aspirin EC 81 MG Oral Tablet Delayed ReleaseIndications :Kidney replaced by transplant,Type 2 diabetes mellitus with hemoglobin A1c goal of less than 7.0% ([facility]) Take 1 Tablet by mouth [...] Z96.41 30 mL 02/16/2023 Active Dexcom G6 Nocturnist Device Use as directed 1 Each 0 02/16/2023 Active Dexcom G6 Sensor Apply a new sensor every 10 days 9 Each 3 02/16/2023 Active Dexcom G6 Transmitter Use with Fermentalg com continuous glucose sensor as directed by brokerage manager 1 Each 4 02/16/2023 Active Mycophenolate [...] 11 pods. 1 Kit 0 06/14/2023 Active Pregabalin 150 MG Oral Capsule (Lyrica) TAKE ONE CAPSULE BY MOUTH ONE TIME DAILY IN THE EVENING 90 Capsule 1 06/28/2023 Active Omnipod 5 G6 Pod (Gen 5) Use as directed. Use up to 200 units via insulin pod every 24 hours. 90 Each 3 07/08/2023 Active documented as of this encounter (statuses as of 07/12/2023) Active Problems Problem Noted Date Charcot's joint [...] as of this encounter (statuses as of 07/12/2023) Resolved Problems Problem Noted Date Resolved Date [...] as of this encounter (statuses as of 07/12/2023) Immunizations Name Administration Dates Next Due PPD [...] Sign Reading Time Taken Comments Blood Pressure 124/79 07/12/2023 8:55 AM EDT Pulse 80 07/12/2023 8:55 AM EDT Temperature 35.9 C (96.7 F) 07/12/2023 8:55 AM ED T Respiratory Rate 16 07/12/2023 8:55 AM EDT Oxygen Saturation 96% 07/12/2023 8:55 AM EDT Inhaled Oxygen Concentration - - Weight - [...] of this encounter Nursing Notes * Karine Cerna RN - 07/12/2023 11:10 AM EDT Goals: Patient will remain free from injury. Possible barriers to meeting goals: ambulating with IV pole, use of cane Stability of the patient: Moderately stable - low risk of patient condition declining or worsening Summary regarding today's goals: Met: pt remained free of harm today Patient tolerated treatment well without any acute issues or problems. Patient left facility in stable condition and denied any further needs. * Karine Cerna RN - 07/12/2023 9:59 AM EDT Chair 7. Port accessed and labs drawn via port. Patient here for Nulojix infusion today, no acute issues or complaints today. Patient is comfortable and denies further needs at this time. Safety and Risk for Injury Patient will remain free from injury. Ensure appropriate safety devices are available. Provide and maintain safe environment. documented in this encounter Plan of Treatment Upcoming Encounters Date Type Specialty Care Team Description 08/09/2023 Hem/Onc Treatment Hematology [place] [place], Chair 10 Hem Onc Scenery [address] [place] [address] 08/24/2023 Office Visit Endocrinology Codi Cam PA-C [address] [place] [address] 08/24/2023 Office Visit Transplant Clinic Elder Rooney DNP [address] [place], [place] [id number] 12/28/2023 Office Visit Family Medicine Ivan Martinez MD [address] [place] [address] [place] [address] Pending Results Name Type Priority Associated Diagnoses Date /Time BK VIRUS DNA, QUANTITATIVE REAL-TIME PCR, BLOOD Lab STAT Kidney replaced by transplant Need for prophylactic immunotherapy 07/12/2023 8:49 AM EDT CYTOMEGALOVIRUS DNA, QUANTITATIVE REAL-TIME PCR Lab STAT 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 07/12/2023 8:49 AM EDT ALBUMIN / CREATININE RATIO, URINE Lab STAT Kidney replaced by transplant Need for prophylactic immunotherapy 07/12/2023 11:04 AM EDT Health Maintenance Due Date Last Done Comments [...] 023, 04/19/2023, 02/21/2023, Additional history exists GFR 07/12/2024 07/12/2023, 06/03, 05/20/2023, Additional history exists GARDASIL-HPV IMMUNIZATION SERIES Aged Out No longer eligible based on patient's age to complete this topic MENINGOCOCCAL (MENACTRA/MENVEO) Aged Out No longer eligible based on patient's age to complete this topic documented as of this encounter Medical Devices Implanted Type Area Plan Manager Device Identifier Shelf Expiration Date Model / Serial / Lot Port Implant W/8f Poly Cath - [id number] Implanted:Qty : 1 on 05/12/2021 by Dong Ackerman, DO at OR [facility] Right: Chest CR BARD : PERIPHERAL VASCULAR [id number] 08/02/2021 [id number] / / [id number] documented as of this encounter Procedures Procedure Name Priority Date/Time Associated Diagnosis Comments DIFFERENTIAL, AUTOMATED STAT 07/12/2023 8:49 AM EDT Kidney replaced by transplant Need for prophylactic immunotherapy BASIC METABOLIC PANEL STAT 07/12/2023 8:49 AM EDT Kidney replaced by transplant Need for prophylactic immunotherapy CBC STAT 07/12/2023 8:49 AM EDT Kidney replaced by transplant Need for prophylactic immunotherapy CBC STAT 07/12/2023 8:49 AM EDT Kidney replaced by transplant Need for prophylactic immunotherapy DIFFERENTIAL, TECHNOLOGIST REVIEW Routine 07/12/2023 8:49 AM EDT Kidney replaced by transplant Need for prophylactic immunotherapy MAGNESIUM STAT 07/12/2023 8:49 AM EDT Kidney replaced by transplant documented in this encounter Results * (ABNORMAL) DIFFERENTIAL, TECHNOLOGIST REVIEW (07/12/2023 8:49 AM EDT) WBC 6.10 4.00 - 10.80 K/uL 07/12/2023 9:40 AM EDT [facility] 56-02 Neutrophils % 65.0 40.0 - 75.0 % 07/12/2023 9:40 AM EDT [facility] 56-02 Lymphocytes % 19.0 18.0 - 42.0 % 07/12/2023 9:40 AM EDT [facility] 56-02 Monocytes % 12.0(H) 1.0 - 11.0 % 07/12/2023 9:40 AM EDT [facility] 56-02 Eosinophils % 2.0 0.0 - 6.0 % 07/12/2023 9:40 AM EDT [facility] 56-02 Basophils % 1.0 0.0 - 2.0 % 07/12/2023 9:40 AM EDT [facility] 56-02 Metamyelocytes % 1.0(H) <=0.0 % 07/12/20 9:40 AM EDT [facility] 56-02 Absolute Neutrophils 3.97 1.80 - 7.70 K/uL 07/12/2023 9:40 AM EDT [facility] 56-02 Absolute Lymphocytes 1.16 1.00 - 4.80 K/uL 07/12/2023 9:40 AM EDT [facility] 56-02 Absolute Monocytes 0.73 0.00 - 1.10 K/uL 07/12/2023 9:40 AM EDT [facility] 56-02 Absolute Eosinophils 0.12 0.00 - 0.70 K/uL 07/12/2023 9:40 AM EDT [facility] 56-02 Absolute Basophils 0.06 0.00 - 0.20 K/uL 07/12/2023 9:40 AM EDT [facility] 56-02 Absolute Metamyelocytes 0.06(H) <=0.00 K/uL 07/12/2023 9:40 AM EDT [facility] 56-02 nRBCs 07/12/2023 9:40 AM EDT [facility] 56-02 Blood Venous blood specimen / Unknown Venipuncture / Unknown 07/12/2023 8:49 AM EDT 07/12/2023 9:23 AM EDT Elder Rooney DNP LAB BLOOD [facility] 56-[address] [place] [address] * DIFFERENTIAL, AUTOMATED (07/12/2023 8:49 AM EDT) Blood Venous blood specimen / Unknown Venipuncture / Unknown 07/12/2023 8:49 AM EDT 07/12/2023 9:23 AM EDT Elder Rooney DNP LAB BLOOD [facility] [address] [place] [address] * CBC (07/12/2023 8:49 AM EDT) [facility] Signature WBC 6.10 4.00 - 10.80 K/uL 07/12/2023 9:40 AM EDT [facility] 56 RBC 4.84 4.50 - 5.25 M/uL 07/12/2023 9:40 AM EDT [facility] 56 HGB 14.3 14.0 - 16.8 g/dL 07/12/2023 9:40 AM EDT [facility] 56 HCT 42.4 40.0 - 48.4 % 07/12/2023 9:40 AM EDT [facility] 56 MCV 87.6 82.0 - 99.5 fL 07/12/2023 9:40 [address] EDT [address] MCH 29.5 27.0 - 34.0 pg 07/12/2023 9:40 AM EDT [address] MCHC 33.7 32.0 - 36.0 g/dL 07/12/2023 9:40 AM EDT [facility] 56 RDW 13.9 11.5 - 15.5 % 07/12/2023 9:40 AM EDT [facility] 56 PLT 195 140 - 400 K/uL 07/12/2023 9:40 AM EDT [facility] 56 MPV 10.8 6.6 - 11.1 fL 07/12/2023 9:40 AM EDT [facility] 56 Blood Venous blood specimen / Unknown Venipuncture / Unknown 07/12/2023 8:49 AM EDT 07/12/2023 9:23 AM EDT Elder Rooney [facility] LAB BLOOD [facility] BLES [facility] [address] [place] [address] * (ABNORMAL) BASIC METABOLIC PANEL (07/12/2023 8:49 AM EDT) BUN 12 6 - 20 mg/dL 07/12/2023 9:49 [address] EDT [address] Creatinine 0.9 0.6 - 1.2 mg/dL 07/12/2023 9:49 AM EDT [facility] 56 Estimated Glomerular Filtration Rate >90 >=60 mL/min 07/12/2023 9:49 AM EDT [facility] 56 Comment:eGFR is calculated b ased on the CKD-EPI 2020 equation Sodium 135 135 - 146 mmol/L 07/12/2023 9:49 AM EDT [facility] 56 Potassium 4.3 3.5 - 5.1 mmol/L 07/12/2023 9:[address]T [address] Chloride 101 98 - 107 mmol/L 07/12/2023 9:[address]T [address] CO2 24 22 - 32 mmol/L 07/12/2023 9:49 AM EDT [address] Anion Gap 10 7 - 15 mmol/L 07/12/2023 9:49 [address] EDT [address] Glucose 331(H) 70 - 120 mg/dL 07/12/2023 9:49 AM EDT [address] Calcium 9.9 8.4 - 10.2 mg/dL 07/12/2023 9:49 AM EDT [facility] 56 Blood Venous blood specimen / Unknown Venipuncture / Unknown 07/12/2023 8:49 AM EDT 07/12/2023 9:23 AM EDT Elder Rooney [facility] LAB BLOOD [facility] BLES [facility] [address] [place] [address] * MAGNESIUM (07/12/2023 8:49 AM EDT) Magnesium 2.0 1.5 - 2.6 mg/dL 07/12/2023 9:49 AM EDT [facility] 56 Blood Venous blood specimen / Unknown Venipuncture / Unknown 07/12/2023 8:49 AM EDT 07/12/2023 9:23 AM EDT Elder Rooney DNP LAB BLOOD [facility] 56-[address] [place] [address] documented in this encounter Visit Diagnoses Diagnosis Kidney replaced by transplant- Primary Need for prophylactic immunotherapy Immunosuppressive management encounter following kidney transplant Encounter for long-term (current) use of other medications documented in this encounter Administered Medications Active Administered Medications - up to 3 most recent administrations Medication Order MAR Action Action Date Dose Rate Site diphenhydrAMINE (Benadryl) inj 50 mg 50 mg, IV Push, ONCE PRN Other, Hypersensitivity Reaction, Starting on Tue07/12/23 at 0928, Until Tue07/13/23 at 09, For 24 hours EPINEPHrine 1 MG/ML inj 0.3 mg 0.3 mg, Intramuscular, ONCE PRN Other, Hypersensitivity Reaction or Anaphylaxis, Starting on Tue07/12/23 at 0928, Until Tue07/13/23 at 09, For 24 hours hEParin 100 UNIT/ML Lock Flush inj 500 Units 500 Units (5 mL), IV Lock, PRN Other, IV Flush, Starting on Tue07/12/23 at 0928, Until Tue07/13/23 at 09, For 24 hours, Do not flush if lock, PICC, or central line not in place; IV infusing or unable to flush. Given 07/12/2023 10:51 AM EDT 500 Units Hydrocortisone Sod Suc (PF) (Solu-Cortef) inj 100 mg 100 mg, IV Push, ONCE PRN Other, Hypersensitivity Reaction, Starting on Tue07/12/23 at 0928, Until Tue07/13/23 at 09, For 24 hours NSS infusion 500 mL, Intravenous, at 10 mL/hr, CONTINUOUS, Starting on Tue07/12/23 at 1030, Until Tue07/12/23 at 2028 Start Infusion 07/12/2023 9:10 AM EDT 500 mL 10 mL/hr sodium chloride 0.9 % flush/inj 10 mL 10 mL, IV Push, PRN Other, IV Flush, Starting on Tue07/12/23 at 0928, Until Tue07/13/23 at 0927, For 24 hours, Do not flush if lock, PICC, or central line not in place; IV infusing or unable to flush. Given 07/12/2023 10:51 AM EDT 10 mL Inactive Administered Medications - up to 3 most recent administrations Medication Order MAR Action Action Date Dose Rate Site Belatacept (Nulojix) 575 mg in NSS 100 mL infusion 575 mg (rounded from 577 mg = 5 mg/kg 115.4 kg Treatment plan Recorded weight), Intravenous, ONCE, 1 dose, On Tue07/12/23 at 1100, Administer over 30 Minutes, Final conc. between 2 and 10 mg/mL Administer over 30 minutes with an infusion set and a sterile, nonpyrogenic, [id number] filter (pore size of 0.2 to 1.2 micrometer) Start Infusion 07/12/2023 10:17 AM EDT 575 mg 200 mL/hr documented in this [...] the patient have Health Care Power of Igniter Capper? No Full Code 09/24/2018 3:28 PM 09/25/2018 5:03 AM Thi s order reflects the patients wishes and were consensually agreed upon. Question Answer Comments Discussion of Advance Directives occurred with: Not Discussed Does the patient have a Living Will? No Does the patient have Health Care Power of Igniter Capper? No Care Teams Bar Host/Hostess Relationship Specialty Start Date End Date Rubio Dias MD [address] [place] [address] [place] [phone] PCP - General Family Medicine 12/22/22 documented as of this encounter
--- OUTSIDE RECORDS SUMMARY | 2023-12-08 20:07 | External Medical Summary | Summary of Care ---
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 (HCC) Type 2 diabetes mellitus with hemoglobin A1c goal of less than 7.0% (HCC) Rubio Dias MD [address] [place] [address] [place] [address] Referral ID Status Reason Start Date Expiration Date Visits Requested Visits Authorized [id number] Authorized Specialty Services Required 06/14/[phone] Question Answer Referral Priority Within 10 days (routine) Comments Diabetic Eye Exam Reason for Visit * Reason Comments Acute Encounter Details Date Type Department Care Team Description 06/14/2023 Office Visit Family Medicine [address] [place] [id number] Rubio Dias MD [address] [place] [address] [place] [phone] Abscess of abdominal wall*; 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 [facility] 30 g 0 09/14/2021 Active Aspirin EC 81 MG Oral Tablet Delayed ReleaseIndications :Kidney replaced by transplant,Type 2 diabetes mellitus with hemoglobin A1c goal of less than 7.0% ([facility]) Take 1 Tablet by mouth [...] 30 mL 11 02/16/2023 Active Dexcom G6 Board Certified Behavioral Analyst Device Use as directed 1 Each 0 02/16/2023 Active Dexcom G6 Sensor Apply a new sensor every 10 days 9 Each 3 02/16/2023 Active Dexcom G6 Transmitter Use with MyOtherDrive com continuous glucose sensor as directed by key account manager 1 Each 4 02/16/2023 Active Mycophenolate [...] every36 hours to administer insulin 15 Each 06/14/2023 Active Doxycycline Hyclate 100 MG Oral CapsuleIndications :Abscess of abdominal wall Take 1 Capsule by mouth in the morning and 1 Capsule before bedtime. Do all this for 10 days. Until gone.. 20 Capsule 0 06/14/2023 06/24/20 23 Active Cephalexin 500 MG Oral Capsule (Keflex)Indication s:Abscess of abdominal wall Take 1 Capsule by mouth in the morning and 1 Capsule at noon and 1 Capsule before bedtime. Do all this for 10 days. 30 Capsule 0 06/14/2023 06/24/20 23 Active documented as of this encounter (statuses as of 06/14/2023) Active Problems Problem Noted Date Charcot's joint [...] as of this encounter (statuses as of 06/14/2023) Resolved Problems Problem Noted Date Resolved Date [...] as of this encounter (statuses as of 06/14/2023) Immunizations Name Administration Dates Next Due PPD [...] Sign Reading Time Taken Comments Blood Pressure 120/74 06/14/2023 3:43 PM EDT Pulse 79 06/14/2023 3:43 PM EDT Temperature 36.2 C (97.2 F) 06/14/2023 3:43 PM ED T Respiratory Rate 16 06/14/2023 3:43 PM EDT Oxygen Saturation 98% 06/14/2023 3:43 PM EDT Inhaled Oxygen Concentration - - Weight 112.3 kg (247 lb 9 oz) 06/14/2023 3:43 PM EDT Height - - Body Mass Index 30.94 03/16/2023 1:54 PM EDT documented in this [...] Progress Notes * Rubio Dias MD - 06/14/2023 3:43 PM EDT Ramesh was treated in the ER on 06/06 for I&D of abdominal abscess and then rechecked 06/08, because blood culture grew staph. The one area had been packed, and he is on doxycycline and Keflex. Whichhe is finishing. He is on dexcom but having trouble with insulin pump coverage Past Medical History: Diagnosis Date Acute prostatitis 12/01/1985 seen in [facility] ER and treated with tetracycline [...] ESRD (end stage renal disease) on dialysis (HCC) Fluctuating blood pressure positional Gastric paresis Hypertension Impotence of organic origin Kidney failure Kidney replaced by transplant 09/24/2018 Multiple closed fractures of cervical vertebrae ([facility]) 09/12/2019 C3 bilateral pedicle and body fracture, C6-7 spinous process fracture Orthostatic hypotension 10/11/2013 PDR (proliferative diabetic retinopathy) ([facility]) OU Poisoning by drug or medicinal substance 09/21/1982 took 32 grams Tylenol as attempted suicide, referred to [facility] Pre-transplant evaluation for ESRD (end stage renal disease) 11/15/2012 S/P primary angioplasty with coronary stent 10/11/2013 Severe sleep apnea 03/21/2016 Thoracic spine fracture (HCC) 09/12/2019 Age indeterminate T1 and T3 superior endplate fx Tobacco use disorder Vitreous hemorrhage, right eye ([facility]) Past Surgical History: Procedure Laterality Date CYSTOSCOPY 07/21/2015 INFORMATION 05/03/03 full dental extractions INJECTION OF EYE DRUG Right 06/27/2012 Avastin # [address] Penaloza INJECTION OF EYE DRUG Left 12/06/2013 Avastin #2 OS, Dr. Penaloza INSER TUNN ACC DEV;5 YRS/OLDER N/A 05/12/2021 INSERT TUNNELED CENTRAL VENOUS ACCESS WITH SUBQ PORT performed by Dong Ackerman DO at OR [facility] INSERTION OF LENS PROSTHESIS 2012 Dr. Martínez INSERTION OF LENS PROSTHESIS 2012 Dr. Martínez MISCELLANEOUS ORDER ([facility] ONLY) 07/2009 Heart stent REMOVAL OF INNER EYE FLUID Right 08/16/2012 TPPV,MP,LASER,FGE Dr. Penaloza REMOVAL OF INNER EYE FLUID Left 12/19/2013 TPPV,MP,LASER,CAP,TRIES Dr. 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 90 Capsule 1 Gvoke HypoPen 2-Pack 1 MG/0.2ML Subcutaneous Solution Auto-injector (Glucagon) Inject 1.0 mg under the skin of belly/thigh or upper arm as needed for unresponsiveness due to suspected hypoglycemia 0.4 mL 11 HumaLOG 100 UNIT/ML Subcutaneous Solution Use to fill Omnipod with 200 units every 2 days. E11.9 and Z96.41 30 mL 11 Dexcom G6 Board Certified Behavioral Analyst Device Use as directed 1 Each 0 Dexcom G6 Sensor Apply a new sensor every 10 days 9 Each 3 Dexcom G6 Transmitter Use with dex com continuous glucose sensor as directed by key account manager 1 Each4 Mycophenolate Sodium 180 MG Oral [...] hours to administer insulin 15 Each 11 No current facility-administered medications for this visit. Lab Results Component Value Date/Time HEMOGLOBIN A1C 10.7 (H) 09/20/1996 02:20 PM HEMOGLOBIN A1C - [facility] 10.2 (H) 02/21/2023 09:11 AM HEMOGLOBIN A1C - [facility] 9.7 (H) 11/03/2022 01:09 PM HEMOGLOBIN A1C - [facility] 10.0 (H) 10/20/2021 02:10 PM HEMOGLOBIN A1C - [facility] 7.9 (H) 01/21/2020 09:55 AM HEMOGLOBIN A1C - [facility] 8.3 (H) 11/21/2019 10:00 AM HEMOGLOBIN A1C - [facility] 8.8 (H) 09/12/2019 05:19 AM HEMOGLOBIN A1C POCT - [facility] 9.8 (H) 02/16/2023 08:42 AM Results for orders placed or performed in visit on 11/03/22 LIPID PANEL WITH DIRECT LDL IF TG IS HIGH Result Value Ref Range Triglycerides 243 (H) <=174 mg/dL Cholesterol 106 <200 mg/dL HDL Cholesterol 29 (L) >39 mg/dL Non-HDL Cholesterol 77 <=159 mg/dL Lab Results Component Value Date/Time LDL CHOLESTEROL (CALCULATED) - [facility] 42 10/20/2021 02:10 PM LDL CHOLESTEROL (CALCULATED) - [facility] 38 03/20/2019 01:50 PM LDL CHOLESTEROL (DIRECT MEASURE) - [facility] 47 11/03/2022 01:09 PM LDL CHOLESTEROL (DIRECT MEASURE) - [facility] 52 11/21/2019 10:00 AM LDL CHOLESTEROL (DIRECT MEASURE) - [facility] 53 11/21/2019 10:00 AM O: Blood pressure 120/74, pulse 79, temperature 36.2 C (97.2 F), temperature source Tympanic, resp. rate 16, weight 112.3 kg (247 lb 9 oz), SpO2 98 %. He has a 3x4 cm area of dark, healing redness just above beltline with a 2x1.5 cm gaping incision from when this was opened. He has poe pus/exudate in the wound but not draining much A: Abscess of abdominal wall (Primary) - Doxycycline Hyclate 100 MG Oral Capsule; Take 1 Capsule by mouth in the morning and 1 Capsule before bedtime. Do all this for 10 days. Until gone.. - Cephalexin 500 MG Oral Capsule (Keflex); Take 1 Capsule by mouth in the morning and 1 Capsule at noon and 1 Capsule before bedtime. Do all this for 10 days. 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 documented in this encounter Nursing Notes * Kaleigh Lilly LPN - 06/14/2023 3:33 PM EDT Abscess on abdomen. Was treated at [facility]. Is on doxy and cephalexin already. 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 (HCC) Type 2 diabetes mellitus with hemoglobin A1c goal of less than 7.0% (HCC) Ordered: 06/14/2023 Health Maintenance Due Date Last Done Comments [...] Foot Exam 02/17/2024 02/16/2023, 08/26/2006 Albumin/Creatinine Ratio 04/19/2024 023, 02/21/2023, 01/24/2023, Additional history exists GFR 06/14/2024 06/14/2023, 05/03, 04/19/2023, Additional history exists GARDASIL-HPV IMMUNIZATION SERIES Aged Out No longer eligible based on patient's age to complete this topic MENINGOCOCCAL (MENACTRA/MENVEO) Aged Out No longer eligible based on patient's age to complete this topic documented as of this encounter Medical Devices Implanted Type Area Watch Repairer Device Identifier Shelf Expiration Date Model / Serial / Lot Port Implant W/8f Poly Cath - [id number] Implanted:Qty : 1 on 05/12/2021 by Dong Ackerman, DO at OR [facility] Right: Chest CR BARD : PERIPHERAL VASCULAR [id number] 08/02/2021 [id number] / / [id number] documented as of this encounter Visit Diagnoses Diagnosis Abscess of abdominal wall- Primary Cellulitis and abscess of trunk 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 No Full Code 09/24/2018 3:28 PM 09/25/2018 5:03 AM Thi s order reflects the patients wishes and were consensually agreed upon. Question Answer Comments Discussion of Advance Directives occurred with: Not Discussed Does the patient have a Living Will? No Does the patient have Health Care Power of Senior Restaurant Manager? No Care Teams Program Attendant Relationship Specialty Start Date End Date Rubio Dias MD [address] [place] [address] [place] [address] PCP - General Family Medicine 12/22/22 documented as of this encounter
--- OUTSIDE RECORDS SUMMARY | 2023-12-08 20:07 | External Medical Summary ---
Author Name Unknown Address Unknown Organization K09:[facility] [place] [address] Laboratory Report Ordering Provider Test Date Status TONY KRUEGER 06/14/2023 08:36:35 Final Observation Date Value Abnormality Reference (Units ) Status BUN 06/14/2023 08:36:35 21 Above high normal 6-20 (mg/dL) Final Creatinine 06/14/2023 08:36:35 0.9 0.6-1.2 (mg/dL) Final Glomerular filtration rate/1.73 sq M.predicted [Volume Rate/Area] in Serum, Plasma or Blood by Creatinine-based formula (CKD-EPI) 06/14/2023 08:36:35 >90 >=60 (mL/min) Final eGFR is calculated based on the CKD-EPI 2020 equation SODIUM 06/14/2023 08:36:35 140 135-146 (m mol/L) Final Potassium 06/14/2023 08:36:35 4.4 3.5-5.1 (m mol/L) Final Cl 06/14/2023 08:36:35 104 98-107 (mm ol/L) Final CO2 06/14/2023 08:36:35 25 22-32 (mmo l/L) Final Anion gap 06/14/2023 08:36:35 11 7-15 (mmol /L) Final Glucose 06/14/2023 08:36:35 158 Above high normal 70 -120 (mg/dL) Final Calcium 06/14/2023 08:36:35 10.0 8.4-10.2 ( mg/dL) Final Performing Location [facility] [place] [address]
--- OUTSIDE RECORDS SUMMARY | 2023-12-08 20:07 | External Medical Summary | Summary of Care ---
Author Name Unknown Organization [facility] Address [address] [place] [address] Phone [phone] Care Team Providers Care General Agent Name Role Phone Rubio Dias MD Primary Care Provider [phone] Reason for Visit * Reason Onset Date Comments Pre Cert/Prior Auth 06/14/2023 Encounter Details Date Type Department Care Team Description 06/14/2023 Telephone Endocrinology, [place] [address] [place] [address] Alicia Pittman MD [address] [place] [address] Pre Cert/Prior Auth Allergies Active Allergy Reactions Severity Noted Date [...] site prior to Monthly infusion). Apply to [facility] site prior to Monthly infusion 30 g 0 09/14/2021 Active Aspirin EC 81 MG Oral Tablet Delayed ReleaseIndications :Kidney replaced by transplant,Type 2 diabetes mellitus with hemoglobin A1c goal of less than 7.0% ([facility]) Take 1 Tablet by mouth in the [...] 30 mL 11 02/16/2023 Active Dexcom G6 Regional Dedicated Truck Driver Device Use as directed 1 Each 0 02/16/2023 Active Dexcom G6 Sensor Apply a new sensor every 10 days 9 Each 3 02/16/2023 Active Dexcom G6 Transmitter Use with PhosImmune continuous glucose sensor as directed by press assistant and feeder 1 Each 4 02/16/2023 Active Mycophenolate Sodium [...] Information: Prescriber: [place] [id number] Primary Visit Coverage Payer Plan Sponsor Code Group Number Group Name MEDICARE MEDICARE A AND B 1 Primary Visit Coverage Subscriber ID Name N Address [id number] MIRZA GILES [id number] [place] [phone] Secondary Visit Coverage Payer Plan Sponsor Code Group Number Group Name [facility] [id number] Secondary Visit Coverage Subscriber ID Name SSN Address [id number] MIRZA GILES [id number] [place] [address] documented in this encounter Plan of Treatment Upcoming Encounters Date Type Specialty Care Team Description 06/14/2023 Office Visit Family Medicine Rubio Dias MD [address] [place] [address] [place] [address] 07/12/2023 Hem/Onc Treatment Hematology [facility], Chair [address] Hem [address] [place] [address] 08/24/2023 Office Visit Endocrinology Codi Cam PA-C [address] [place], [place] [id number] 08/24/2023 Office Visit Transplant Clinic Elder Rooney DNP [address] [place], [place] [phone] Health Maintenance Due Date Last Done Comments [...] this encounter Medical Devices Implanted Type Area Baffle Installer Device Identifier Shelf Expiration Date Model / Serial / Lot Port Implant W/8f Poly Cath - [id number] Implanted:Qty : 1 on 05/12/2021 by Dong Ackerman, DO at [facility] Right: Chest CR BARD : PERIPHERAL VASCULAR [id number] 08/02/2021 [id number] / / [id number] documented as of this encounter Advance Directives [...] the patient have Health Care Power of Architectural Practice Manager? No Full Code 09/24/2018 3:28 PM 09/25/2018 5:03 AM Thi s order reflects the patients wishes and were consensually agreed upon. Question Answer Comments Discussion of Advance Directives occurred with: Not Discussed Does the patient have a Living Will? No Does the patient have Health Care Power of Architectural Practice Manager? No Care Teams General Agent Relationship Specialty Start Date End Date Rubio Dias MD [address] [place] [address] [place] [address] PCP - General Family Medicine 12/22/22 documented as of this encounter
--- OUTSIDE RECORDS SUMMARY | 2023-12-08 20:07 | External Medical Summary ---
Author Name Unknown Address Unknown Organization K01[facility] [place] [address] [place] [address] Laboratory Report Ordering Provider Test Date Status TONY KRUEGER 06/14/2023 10:32:47 Final Normal: <30 mg/g creatinine< br/>High: 30-300 mg/g creatinine
Very High: >300 mg/g creatinine
Nephrotic: >2200 mg/g creatinine Observation Date Value Abnormality Reference (Units ) Status Albumin, Urine 06/14/2023 10:32:47 <1.20 (mg/dL) Final Creatinine, Urine 06/14/2023 10:32:47 158 (mg/dL) Final Albumin/Creatinine [Mass Ratio] in Urine 06/14/2023 10:32:47 <8 <30 (mg/g Creat) Final Performing Location [facility] [place] [address] [place] [address]
--- OUTSIDE RECORDS SUMMARY | 2023-12-08 20:07 | External Medical Summary | Summary of Care ---
Author Name Unknown Organization [facility] Address [address] [place] [address] Phone [phone] Care Team Providers Care Helper Coordinator Name Role Phone Rubio Dias MD Primary Care Provider Reason for Visit * Reason Onset Date Comments Precert In Process 06/14/2023 OMNIPOD Encounter Details Date Type Department Care Team Description 06/14/2023 Telephone [facility], [place] [address] [place], [place] [phone] Alicia Pittman MD [address] [place] [address] Precert In Process ( OMNIPOD) Allergies Active Allergy Reactions Severity [...] Monthly infusion). Apply to [facility] site prior to Monthly infusion 30 [...] mL 11 02/16/2023 Active Dexcom G6 Manager General Device Use as directed 1 Each 0 02/16/2023 Active Dexcom G6 Sensor Apply a new sensor every 10 days 9 Each 3 02/16/2023 Active Dexcom G6 Transmitter Use with ScaleMP continuous glucose sensor as directed by maintenance welder 1 Each 4 02/16/2023 Active Mycophenolate Sodium [...] Information: Prescriber: [place] [address] Primary Visit Coverage Payer Plan Sponsor Code Group Number Group Name MEDICARE MEDICARE A AND B 1 Primary Visit Coverage Subscriber ID Name N Address [id number] MIRZA GILES [id number] [place] [phone] Secondary Visit Coverage Payer Plan Sponsor Code Group Number Group Name [facility] [id number] Secondary Visit Coverage Subscriber ID Name SSN Address [id number] MIRZA GILES [id number] [place] [phone] documented in this encounter Plan of Treatment Upcoming Encounters Date Type Specialty Care Team Description 06/28/2023 Office Visit Family Medicine Rubio Dias MD [address] [place] [address] [place] [address] 07/12/2023 Hem/Onc Treatment Hematology [facility] [place], Chair [address] Hem On[address] [place] [address] 08/24/2023 Office Visit Endocrinology Codi Cam PA-C [address] [place] [address] 08/24/2023 Office Visit Transplant Clinic Elder Rooney DNP [address] [place], [place] [phone] Health Maintenance Due Date Last Done Comments [...] this encounter Medical Devices Implanted Type Area Potato Loader Device Identifier Shelf Expiration Date Model / Serial / Lot Port Implant W/8f Poly Cath - [id number] Implanted:Qty : 1 on 05/12/2021 by Dong Ackerman, at OR [facility] Right: Chest CR BARD : PERIPHERAL VASCULAR [id number] 08/02/2021 [id number] / / [id number] documented as of this encounter Advance Directives [...] the patient have Health Care Power of Stick Roller? No Full Code 09/24/2018 3:28 PM 09/25/2018 5:03 AM Thi s order reflects the patients wishes and were consensually agreed upon. Question Answer Comments Discussion of Advance Directives occurred with: Not Discussed Does the patient have a Living Will? No Does the patient have Health Care Power of Stick Roller? No Care Teams Helper Coordinator Relationship Specialty Start Date End Date Rubio Dias MD [address] [place] [address] [place] [address] PCP - General Family Medicine 12/22/22 documented as of this encounter
--- OUTSIDE RECORDS SUMMARY | 2023-12-08 20:07 | External Medical Summary | Summary of Care ---
Author Name Unknown Organization [facility] Address [address] [place] [address] Phone [phone] Care Team Providers Care Equipment Maintenance Tech Name Role Phone Rubio Dias MD Primary Care Provider Reason for Visit * Reason Onset Date Comments Precert Approved 06/14/2023 OMNIPOD Encounter Details Date Type Department Care Team Description 06/14/2023 Telephone Endocrinology, [place] [address] [place], [place] [id number] Alicia Pittman MD [address] [place] [address] Precert Approved ( OMNIPOD) Allergies [...] Apply topically to affected area as needed ([facility] site prior to Monthly infusion). Apply to [facility] site prior to Monthly infusion 30 g 0 09/14/2021 Active Aspirin EC 81 MG Oral Tablet Delayed ReleaseIndications :Kidney replaced by transplant,Type 2 diabetes mellitus with hemoglobin A1c goal of less than 7.0% ([facility]) Take 1 Tablet by mouth [...] 30 mL 11 02/16/2023 Active Dexcom G6 Transport Tank Technician Device Use as directed 1 Each 0 02/16/2023 Active Dexcom G6 Sensor Apply a new sensor every 10 days 9 Each 3 02/16/2023 Active Dexcom G6 Transmitter Use with [employer] continuous glucose sensor as directed by management coordinator 1 Each 4 02/16/2023 Active Mycophenolate [...] Information: Prescriber: [place] [id number] Primary Visit Coverage Payer Plan Sponsor Code Group Number Group Name MEDICARE MEDICARE A AND B 1 Primary Visit Coverage Subscriber ID Name N Address [id number] MIRZA GILES [id number] [place] [address] Secondary Visit Coverage Payer Plan Sponsor Code Group Number Group Name [facility] [id number] Secondary Visit Coverage Subscriber ID Name SSN Address [id number] MIRZA GILES [id number] [place] [phone] documented in this encounter Plan of Treatment Upcoming Encounters Date Type Specialty Care Team Description 06/28/2023 Office Visit Family Medicine Rubio Dias MD [address] [place] [address] [place] [address] 07/12/2023 Hem/Onc Treatment [facility]ology [place], Chair 11 Hem Onc Scenery [address] [place] [address] 08/24/2023 Office Visit Endocrinology Codi Cam PA-C [address] [place] [address] 08/24/2023 Office Visit Transplant Clinic Elder Rooney DNP [address] [place], [place] [phone] Health Maintenance Due Date Last Done Comments [...] this encounter Medical Devices Implanted Type Area Rack Loader Device Identifier Shelf Expiration Date Model / Serial / Lot Port Implant W/8f Poly Cath - [id number] Implanted:Qty : 1 on 05/12/2021 by Dong Ackerman, at OR [facility] Right: Chest CR BARD : PERIPHERAL VASCULAR [id number] 08/02/2021 [id number] / / [id number] documented as of this encounter Advance Directives [...] the patient have Health Care Power of Powertrain Design Engineer? No Full Code 09/24/2018 3:28 PM 09/25/2018 5:03 AM Thi s order reflects the patients wishes and were consensually agreed upon. Question Answer Comments Discussion of Advance Directives occurred with: Not Discussed Does the patient have a Living Will? No Does the patient have Health Care Power of Powertrain Design Engineer? No Care Teams Equipment Maintenance Tech Relationship Specialty Start Date End Date Rubio Dias MD [address] [place] [address] [place] [address] PCP - General Family Medicine 12/22/22 documented as of this encounter
--- OUTSIDE RECORDS SUMMARY | 2023-12-08 20:07 | External Medical Summary | Summary of Care ---
Author Name Unknown Organization [facility] Address [address] [place] [address] Phone [phone] Care Team Providers Care Grainer Machine Name Role Phone Rubio Dias MD Primary Care Provider Reason for Visit * Reason Comments IV Therapy Nulojix * Episode Based Medications (Routine) - Authorized Specialty Diagnoses / Procedures Referred By Bob banerjee Referred To Contact Diagnoses Kidney replaced by transplant Procedures ME BELATACEPT INJECTION Elder Rooney, DNP [address] [place] [address] Anc Hem/Onc Scenery [place] [address] [place] [address] Referral ID Status Reason Start Date Expiration Date V isits Requested Visits Authorized [id number] Authorized 12/28/2021 10/02/2099 99 99 Encounter Details Date Type Department Care Team Description 06/14/2023 Hem/Onc Treatment Hematology/Oncology Treatment, [place] [address] [place] [address] [place], Chair 11 Hem Onc Scenery [address] [place] [address] Kidney replaced by transplant*; Need for prophylactic immunotherapy Allergies Active Allergy Reactions Severity Noted Date [...] prior to Monthly infusion). Apply to [facility] site prior to Monthly infusion 30 g 0 09/14/2021 Active Aspirin EC 81 MG Oral Tablet Delayed ReleaseIndications :Kidney replaced by transplant,Type 2 diabetes mellitus with hemoglobin A1c goal of less than 7.0% ([facility]) Take 1 Tablet by mouth [...] 30 mL 11 02/16/2023 Active Dexcom G6 Bakery Team Member Device Use as directed 1 Each 0 02/16/2023 Active Dexcom G6 Sensor Apply a new sensor every 10 days 9 Each 3 02/16/2023 Active Dexcom G6 Transmitter Use with dex com continuous glucose sensor as directed by manager etl 1 Each 4 02/16/2023 Active Mycophenolate Sodium [...] EVERY DAY 90 Capsule 3 05/03/2023 Active documented as of this encounter (statuses [...] as of this encounter Nursing Notes * Maureen Del Rosario RN - 06/14/2023 10:59 AM EDT Nulojix infusion is complete. Pt tolerated well. Goals: pt to remain free from injury Possible barriers to meeting goals: ambulation with IV pole, pt ambulates with cane Stability of the patient: Moderately unstable - medium risk of patient condition declining or worsening Summary regarding today's goals: Met: pt remained free from injury Pt discharged in stable condition. * Maureen Del Rosario RN - 06/14/2023 10:58 AM EDT Ch 8. Pt arrived today for Nulojix infusion. Pt denies acute concerns. Labs obtained via port, taken to S.P. for processing. Safety and Risk for Injury Patient will remain free from injury. Ensure appropriate safety devices are available. Provide and maintain safe environment. documented in this encounter Plan of Treatment Upcoming Encounters Date Type Specialty Care Team Description 06/14/2023 Office Visit Family Medicine Rubio Dias MD [address] [place] [address] [place] [address] 07/12/2023 Hem/Onc Treatment Hematology [place], Chair 11 Hem Onc Scenery [address] [place] [address] 08/24/2023 Office Visit Endocrinology Codi Cam PA-C [address] [place], [place] [phone] 08/24/2023 Office Visit Transplant Clinic Elder Rooney DNP [address] [place] [address] Pending Results Name Type Priority Associated Diagnoses Date /Time ALBUMIN / CREATININE RATIO, URINE Lab STAT Kidney replaced by transplant 06/14/2023 10:32 AM EDT BK VIRUS DNA, QUANTITATIVE REAL-TIME PCR, BLOOD Lab STAT Kidney replaced by transplant Need for prophylactic immunotherapy 06/14/2023 8:36 AM EDT Health Maintenance Due Date Last [...] this encounter Medical Devices Implanted Type Area Senior Medical Writer Device Identifier Shelf Expiration Date Model / Serial / Lot Port Implant W/8f Poly Cath - [id number] Implanted:Qty : 1 on 05/12/2021 by Dong Ackerman, at OR [facility] Right: Chest CR BARD : PERIPHERAL VASCULAR [id number] 08/02/2021 [id number] / / [id number] documented as of this encounter Procedures Procedure Name Priority Date/Time Associated Diagnosis Comments DIFFERENTIAL, AUTOMATED STAT 06/14/2023 8:36 AM EDT Kidney replaced by transplant Need for prophylactic immunotherapy BASIC METABOLIC PANEL STAT 06/14/2023 8:36 AM EDT Kidney replaced by transplant Need for prophylactic immunotherapy CBC WITH WBC DIFFERENTIAL STAT 06/14/2023 8:36 AM EDT Kidney replaced by transplant Need for prophylactic immunotherapy CBC STAT 06/14/2023 8:36 AM EDT Kidney replaced by transplant Need for prophylactic immunotherapy DIFFERENTIAL, TECHNOLOGIST REVIEW Routine 06/14/2023 8:36 AM EDT Kidney replaced by transplant Need for prophylactic immunotherapy documented in this encounter Results * (ABNORMAL) DIFFERENTIAL, TECHNOLOGIST REVIEW (06/14/2023 8:36 AM EDT) WBC 5.47 4.00 - 10.80 K/uL 06/14/2023 9:38 AM EDT [facility] 56-02 Neutrophils % 60.0 40.0 - 75.0 % 06/14/2023 9:38 AM EDT [facility] 56- Lymphocytes % 27.0 18.0 - 42.0 % 06/14/2023 9:38 AM EDT [facility] 56- Monocytes % 10.0 1.0 - 11.0 % 06/14/2023 9:38 AM EDT [facility] 56- Eosinophils % 3.0 0.0 - 6.0 % 06/14/2023 9:38 AM EDT [facility] 56- Absolute Neutrophils 3.28 1.80 - 7.70 K/uL 06/14/2023 9:38 AM EDT [facility] 56- Absolute Lymphocytes 1.48 1.00 - 4.80 K/uL 06/14/2023 9:38 AM EDT [facility] 56-02 Absolute Monocytes 0.55 0.00 - 1.10 K/uL 06/14/2023 9:38 AM EDT [facility] 56- Absolute Eosinophils 0.16 0.00 - 0.70 K/uL 06/14/2023 9:38 AM EDT [facility] 56-02 nRBCs 06/14/2023 9:38 AM EDT [facility] 56- Reactive Lymphocytes Present(A ) None Seen 06/14/2023 9:38 AM EDT [facility] 56-02 Blood Venous blood specimen / Unknown Venipuncture / Unknown 06/14/2023 8:36 AM EDT 06/14/2023 9:10 AM EDT Elder Rooney DNP LAB BLOOD [facility] 56- [address] [place] [address] * DIFFERENTIAL, AUTOMATED (06/14/2023 8:36 AM EDT) Blood Venous blood specimen / Unknown Venipuncture / Unknown 06/14/2023 8:36 AM EDT 06/14/2023 9:10 AM EDT Elder Rooney DNP LAB BLOOD [facility] [address] [place] [address] * (ABNORMAL) CBC (06/14/2023 8:36 AM EDT) WBC 5.47 4.00 - 10.80 K/uL 06/14/2023 9:38 AM EDT [address] RBC 4.75 4.50 - 5.25 M/uL 06/14/2023 9:38 AM EDT [address] HGB 13.9(L) 14.0 - 16.8 g/dL 06/14/2023 9:38 AM EDT [address] HCT 43.0 40.0 - 48.4 % 06/14/2023 9:38 AM EDT [address] MCV 90.5 82.0 - 99.5 fL 06/14/2023 9:38 AM EDT [address] MCH 29.3 27.0 - 34.0 pg 06/14/2023 9:38 AM EDT [address] MCHC 32.3 32.0 - 36.0 g/dL 06/14/2023 9:38 AM EDT [address] RDW 14.0 11.5 - 15.5 % 06/14/2023 9:38 AM EDT [facility] 56 PLT 333 140 - 400 K/uL 06/14/2023 9:38 AM EDT [facility] 56 MPV 9.4 6.6 - 11.1 fL 06/14/2023 9:38 AM EDT [facility] 56 Blood Venous blood specimen / Unknown Venipuncture / Unknown 06/14/2023 8:36 AM EDT 06/14/2023 9:10 AM EDT Elder Rooney [facility] LAB BLOOD [facility] 56 [address] [place] [id number] * (ABNORMAL) BASIC METABOLIC PANEL (06/14/2023 8:36 AM EDT) BUN 21(H) 6 - 20 mg/dL 06/14/2023 10:36 AM EDT [address] Creatinine 0.9 0.6 - 1.2 mg/dL 06/14/2023 10:36 AM EDT [address] Estimated Glomerular Filtration Rate >90 >=60 mL/min 06/14/2023 10:36 AM EDT [address] Comment:eGFR is calculated b ased on the CKD-EPI 2020 equation Sodium 140 135 - 146 mmol/L 06/14/2023 10:36 AM EDT [address] Potassium 4.4 3.5 - 5.1 mmol/L 06/14/2023 10:36 AM EDT [address] Chloride 104 98 - 107 mmol/L 06/14/2023 10:36 AM EDT [address] CO2 25 22 - 32 mmol/L 06/14/2023 10:36 AM EDT [address] Anion Gap 11 7 - 15 mmol/L 06/14/2023 10:36 AM EDT [address] Glucose 158(H) 70 - 120 mg/dL 06/14/2023 10:36 AM EDT [address] Calcium 10.0 8.4 - 10.2 mg/dL 06/14/2023 10:36 AM EDT [facility] 56 Blood Venous blood specimen / Unknown Venipuncture / Unknown 06/14/2023 8:36 AM EDT 06/14/2023 9:10 AM EDT Elder Rooney [facility] LAB BLOOD [facility] 56 [address] [place] [address] documented in this encounter Visit Diagnoses Diagnosis Kidney replaced by transplant- Primary Need for prophylactic immunotherapy documented in this encounter Administered Medications Active Administered Medications - up to 3 most recent administrations Medication Order MAR Action Action Date Dose Rate Site diphenhydrAMINE (Benadryl) inj 50 mg 50 mg, IV Push, ONCE PRN Other, Hypersensitivity Reaction, Starting on Tue06/14/23 at 0906, Until Tue06/15/23 at 0905, For 24 hours EPINEPHrine 1 MG/ML inj 0.3 mg 0.3 mg, Intramuscular, ONCE PRN Other, Hypersensitivity Reaction or Anaphylaxis, Starting on Tue06/14/23 at 0906, Until Tue06/15/23 at 0905, For 24 hours hEParin 100 UNIT/ML Lock Flush inj 500 Units 500 Units (5 mL), IV Lock, PRN Other, IV Flush, Starting on Tue06/14/23 at 0906, Until Tue06/15/23 at 0905, For 24 hours, Do not flush if lock, PICC, or central line not in place; IV infusing or unable to flush. Given 06/14/2023 10:22 AM EDT 500 Units Hydrocortisone Sod Suc (PF) (Solu-Cortef) inj 100 mg 100 mg, IV Push, ONCE PRN Other, Hypersensitivity Reaction, Starting on Tue06/14/23 at 0906, Until Tue06/15/23 at 0905, For 24 hours NSS infusion 500 mL, Intravenous, at 10 mL/hr, CONTINUOUS, Starting on Tue06/14/23 at 1015, Until Tue06/14/23 at 2014 Start Infusion 06/14/2023 9:30 AM EDT 500 mL 10 mL/hr sodium chloride 0.9 % flush/inj 10 mL 10 mL, IV Push, PRN Other, IV Flush, Starting on Tue06/14/23 at 0906, Until Tue06/15/23 at 0905, For 24 hours, Do not flush if lock, PICC, or central line not in place; IV infusing or unable to flush. Given 06/14/2023 10:22 AM EDT 10 mL Inactive Administered Medications - up to 3 most recent administrations Medication Order MAR Action Action Date Dose Rate Site Belatacept (Nulojix) 575 mg in NSS 100 mL infusion 575 mg (rounded from 577 mg = 5 mg/kg 115.4 kg Treatment plan Recorded weight), Intravenous, ONCE, 1 dose, On Tue06/14/23 at 1045, Administer over 30 Minutes, Final conc. between 2 and 10 mg/mL Administer over 30 minutes with an infusion set and a sterile, nonpyrogenic, ujh-ccupwri-mhvigdo filter (pore size of 0.2 to 1.2 micrometer) Start Infusion 06/14/2023 9:51 AM EDT 575 mg 200 mL/hr documented [...] the patient have Health Care Power of Bow Repairer Custom? No Full Code 09/24/2018 3:28 PM 09/25/2018 5:03 AM Thi s order reflects the patients wishes and were consensually agreed upon. Question Answer Comments Discussion of Advance Directives occurred with: Not Discussed Does the patient have a Living Will? No Does the patient have Health Care Power of Bow Repairer Custom? No Care Teams Grainer Machine Relationship Specialty Start Date End Date Rubio Dias MD [address] [place] [address] [place] [address] PCP - General Family Medicine 12/22/22 documented as of this encounter
--- OUTSIDE RECORDS SUMMARY | 2023-12-08 20:07 | External Medical Summary | Summary of Care ---
Author Name Unknown Organization [facility] Address [address] [place] [address] Phone [phone] Care Team Providers Care Manager Resource Name Role Phone Rubio Dias MD Primary Care Provider Reason for Visit * Reason Onset Date Comments Precert In Process 06/14/2023 13 MARGARITA FARIA E OMNIPOD Encounter Details Date Type Department Care Team Description 06/14/2023 Telephone [facility], [place] [address] [place], [place] [phone] Alicia Pittman MD [address] [place] [address] Precert In Process (13 MA MARLENY OMNIPOD) Allergies Active Allergy Reactions Severity Noted Date Comments Bee Venom 04/03/2002 Ondansetron Hcl Edema Other 07/12/2017 All over swelling documented as of this encounter (statuses as of 06/15/2023) Medications Medication Sig Dispensed Refills Start Date [...] 30 mL 11 02/16/2023 Active Dexcom G6 Sewer Pipe Cleaner Device Use as directed 1 Each 0 02/16/2023 Active Dexcom G6 Sensor Apply a new sensor every 10 days 9 Each 3 02/16/2023 Active Dexcom G6 Transmitter Use with dex [employer] continuous glucose sensor as directed by field operations coordinator 1 Each 4 02/16/2023 Active Mycophenolate [...] as of this encounter (statuses as of 06/15/2023) Active Problems Problem Noted Date Charcot's joint [...] neuropathic pain 10/23/2015 Transient alteration of awareness 12/21/ 2015 Orthostatic hypotension 10/11/2013 Chronic coronary artery disease [...] as of this encounter (statuses as of 06/15/2023) Resolved Problems Problem Noted Date Resolved Date [...] as of this encounter (statuses as of 06/15/2023) Immunizations Name Administration Dates Next Due PPD [...] Information: Prescriber: [place] [address] Primary Visit Coverage Payer Plan Sponsor Code Group Number Group Name MEDICARE MEDICARE A AND B 1 Primary Visit Coverage Subscriber ID Name N Address [id number] MIRZA GILES [id number] [address] [place] [address] Secondary Visit Coverage Payer Plan Sponsor Code Group Number Group Name [facility] [id number] Secondary Visit Coverage Subscriber ID Name SSN Address [id number] MIRZA GILES [id number] [place] [phone] documented in this encounter Plan of Treatment Upcoming Encounters Date Type Specialty Care Team Description 07/12/2023 Hem/Onc Treatment [facility]ology [place], Chair [address] Hem Onc Scenery [address] [place] [address] 08/24/2023 Office Visit Endocrinology Codi Cam PA-C [address] [place] [address] 08/24/2023 Office Visit Transplant Clinic Elder Rooney DNP [address] [place] [address] Health Maintenance Due Date Last [...] this encounter Medical Devices Implanted Type Area Ophthalmologist Device Identifier Shelf Expiration Date Model / Serial / Lot Port Implant W/8f Poly Cath - [id number] Implanted:Qty : 1 on 05/12/2021 by Dong Ackerman, DO at OR [facility] Right: Chest CR BARD : PERIPHERAL VASCULAR [id number] 08/02/2021 [id number] / / [id number] documented as of this encounter Advance Directives [...] patient have Health Care Power of Lan Specialist? No Full Code 09/24/2018 3:28 PM 09/25/2018 5:03 AM Thi s order reflects the patients wishes and were consensually agreed upon. Question Answer Comments Discussion of Advance Directives occurred with: Not Discussed Does the patient have a Living Will? No Does the patient have Health Care Power of Lan Specialist? No Care Teams Manager Resource Relationship Specialty Start Date End Date Rubio Dias MD [address] [place] [address] [place] [address] PCP - General Family Medicine 12/22/22 documented as of this encounter
--- OUTSIDE RECORDS SUMMARY | 2023-12-08 20:07 | External Medical Summary | Summary of Care ---
Author Name Unknown Organization [facility] Address [address] [place] [address] Phone [phone] Care Team Providers Care Firer Diesel Locomotive Name Role Phone Rubio Dias MD Primary Care Provider [phone] Encounter Details Date Type Department Care Team Description 06/14/2023 Telephone [facility], [place] [address] [place] [address] Alicia Pittman MD [address] [place] [address] Allergies Active Allergy Reactions Severity [...] than 7.0% ([facility]) Take 1 Tablet by mouth in the [...] 30 mL 11 02/16/2023 Active Dexcom G6 Machine Inspector Device Use as directed 1 Each 0 02/16/2023 Active Dexcom G6 Sensor Apply a new sensor every 10 days 9 Each 3 02/16/2023 Active Dexcom G6 Transmitter Use with [employer] com continuous glucose sensor as directed by diamond powder mixer 1 Each 4 02/16/2023 Active Mycophenolate [...] * Telephone Encounter - KO Hilliard - 06/14/2023 8:05 AM EDT Pt l/m requesting an Insulin Pump that is compatible with the Dexcom G6. He would like new script sent to the [facility] in [place]. documented in this encounter Plan of Treatment Upcoming Encounters Date Type Specialty Care Team Description 06/14/2023 Office Visit Family Medicine Rubio Dias MD [address] [place] [address] [place] [address] 07/12/2023 Hem/Onc Treatment Hematology [place], Chair 11 Hem Onc Scenery [address] [place] [address] 08/24/2023 Office Visit Endocrinology Codi Cam PA-C [address] [place] [address] 08/24/2023 Office Visit Transplant Clinic Elder Rooney, DNP [address] [place] [address] Health Maintenance Due Date Last Done Comments [...] Foot Exam 02/17/2024 02/16/2023, 08/26/2006 Albumin/Creatinine Ratio 04/19/202404/19/2 023, 02/21/2023, 01/24/2023, Additional history exists GFR 05/20/2024 05/20/2023, 04/02, 03/21/2023, Additional history exists GARDASIL-HPV IMMUNIZATION SERIES Aged Out No longer eligible based on patient's age to complete this topic MENINGOCOCCAL (MENACTRA/MENVEO) Aged Out No longer eligible based on patient's age to complete this topic documented as of this encounter Medical Devices Implanted Type Area Accounting Administrative Assistant Device Identifier Shelf Expiration Date Model / Serial / Lot Port Implant W/8f Poly Cath - [id number] Implanted:Qty : 1 on 05/12/2021 by Dong Ackerman, DO at OR [facility] Right: Chest CR BARD : PERIPHERAL VASCULAR [id number] 08/02/2021 [id number] / / [id number] documented as of this encounter Advance Directives [...] the patient have Health Care Power of Tombstone Erector? No Full Code 09/24/2018 3:28 PM 09/25/2018 5:03 AM Thi s order reflects the patients wishes and were consensually agreed upon. Question Answer Comments Discussion of Advance Directives occurred with: Not Discussed Does the patient have a Living Will? No Does the patient have Health Care Power of Tombstone Erector? No Care Teams Firer Diesel Locomotive Relationship Specialty Start Date End Date Rubio Dias MD [address] [place] [address] [place] [phone] PCP - General Family Medicine 12/22/22 documented as of this encounter
--- OUTSIDE RECORDS SUMMARY | 2023-12-08 20:07 | External Medical Summary ---
Author Name Unknown Address Unknown Organization : Laboratory Report Ordering Provider Test Date Status TONY KRUEGER 06/14/2023 08:36:35 Final Observation Date Value Abnormality Reference (Units ) Status Source 06/14/2023 08:36:35 Whole Blood Final BK virus DNA 06/14/2023 08:36:35 Not Detected (copies/mL) Final BK virus DNA [Log #/volume] (viral load) in Specimen by PAULINE with probe detection 06/14/2023 08:36:35 Not Detected (Log cps/mL) Final Reference Range: Not Detecte d
This test was developed and its analytical performance
characteristics have been determined by [facility]
[place] It has
not been cleared or approved by the U.S. Food and Drug
Administration. This assay has been validated pursuant
to the CLIA regulations and is used for clinical
purposes.

Test Performed at:
[facility]
[address] [facility]
[place], [place] [address]
Mauricio Soriano M.D., Ph.D.,Director of Laboratories Performing Location
--- OUTSIDE RECORDS SUMMARY | 2023-12-08 20:07 | External Medical Summary ---
Author Name Unknown Address Unknown Organization K09:[facility] [place] [address] Laboratory Report Ordering Provider Test Date Status TONY KRUEGER 06/14/2023 08:36:35 Final Observation Date Value Abnormality Reference (Units ) Status WBC, Total 06/14/2023 08:36:35 5.47 4.00-10.8 0 (K/uL) Final RBC 06/14/2023 08:36:35 4.75 4.50-5.25 (M/uL) Final Hemoglobin 06/14/2023 08:36:35 13.9 Below low normal 14 .0-16.8 (g/dL) Final HCT 06/14/2023 08:36:35 43.0 40.0-48.4 (%) Final MCV 06/14/2023 08:36:35 90.5 82.0-99.5 (fL) Final MCH 06/14/2023 08:36:35 29.3 27.0-34.0 (pg) Final MCHC 06/14/2023 08:36:35 32.3 32.0-36.0 (g/dL) Final RDW 06/14/2023 08:36:35 14.0 11.5-15.5 (%) Final Platelets 06/14/2023 08:36:35 333 140-400 (K /uL) Final MPV 06/14/2023 08:36:35 9.4 6.6-11.1 ( fL) Final Performing Location [facility] [place] [address]
--- OUTSIDE RECORDS SUMMARY | 2023-12-08 20:07 | External Medical Summary | Summary of Care ---
Author Name Unknown Organization [facility] Address [address] [place] [address] Phone [phone] Care Team Providers Care Certified Personal Trainer Name Role Phone Rubio Dias MD Primary Care Provider Encounter Details Date Type Department Care Team Description 06/14/2023 Orders Only Endocrinology, [place] [address], [place] [id number] Alicia Pittman MD [address] [place] [address] Allergies Active Allergy Reactions Severity [...] hours OFF 30 Patch 5 3 Active Pregabalin 150 MG Oral Capsule (Lyrica) Take 1 Capsule by mouth every evening. 90 Capsule 1 3 Active Gvoke HypoPen 2-Pack 1 MG/0.2ML Subcutaneous Solution Auto-injector (Glucagon) Inject 1.0 mg under the skin of belly/thigh or upper arm as needed for unresponsiveness due to suspected hypoglycemia 0.4 mL 11 3 Active HumaLOG 100 UNIT/ML Subcutaneous Solution Use to fill Omnipod with 200 units every 2 days. E11.9 and Z96.41 30 mL 11 3 Active Dexcom G6 Surveyor Geophysical Prospecting Device Use as directed 1 Each 0 3 Active Dexcom G6 Sensor Apply a new sensor every 10 days 9 Each 3 3 Active Dexcom G6 Transmitter Use with dex com continuous glucose sensor as directed by community manager 1 Each 4 3 Active Mycophenolate Sodium [...] Capsule 3 3 Active Omnipod 5 G6 Intro (Gen 5) Kit Use to administer insulin daily. Contains controller + 11 pods. 1 Kit 0 3 Active Omnipod 5 G6 Pod (Gen 5) Use a new pod every36 hours to administer insulin 15 Each 11 3 Active Omnipod 5 G6 Intro (Gen 5) Kit Use to administer insulin daily. Contains controller + 11 pods. 1 Kit 0 3 06/14/20 23 Discontinu ed(Refill) Omnipod 5 G6 Pod (Gen 5) Use a new pod every36 hours to administer insulin 15 Each 11 3 06/14/20 23 Discontinu ed(Refill) documented as of this encounter [...] Office Visit Family Medicine Rubio Dias MD [address] [place] [address] [place] [id number] 07/12/2023 Hem/Onc Treatment [facility], [address] Hem On[address] [place] [address] 08/24/2023 Office Visit Endocrinology [facility]C [address] [facility] [id number] 08/24/2023 Office Visit Transplant Clinic Elder Rooney, DNP [address] [place] [address] Health Maintenance Due Date Last Done Comments [...] Exam 02/17/2024 02/16/2023, 08/26/2006 Albumin/Creatinine Ratio 04/19/2024 07/2 023, 02/21/2023, 01/24/2023, Additional history exists GFR 05/20/2024 05/20/2023, 04/02, 03/21/2023, Additional history exists GARDASIL-HPV IMMUNIZATION SERIES Aged Out No longer eligible based on patient's age to complete this topic MENINGOCOCCAL (MENACTRA/MENVEO) Aged Out No longer eligible based on patient's age to complete this topic documented as of this encounter Medical Devices Implanted Type Area Plasterer Stucco Device Identifier Shelf Expiration Date Model / Serial / Lot Port Implant W/8f Poly Cath - [id number] Implanted:Qty : 1 on 05/12/2021 by Dong Ackerman, at OR [facility] Right: Chest CR BARD : PERIPHERAL VASCULAR [id number] 08/02/2021 [id number] / / [id number] documented as of this encounter Advance Directives [...] the patient have Health Care Power of Public Relations Account Supervisor? No Full Code 09/24/2018 3:28 PM 09/25/2018 5:03 AM Thi s order reflects the patients wishes and were consensually agreed upon. Question Answer Comments Discussion of Advance Directives occurred with: Not Discussed Does the patient have a Living Will? No Does the patient have Health Care Power of Public Relations Account Supervisor? No Care Teams Certified Personal Trainer Relationship Specialty Start Date End Date Rubio Dias MD [address] [place] [address] [place] [address] PCP - General Family Medicine 12/22/22 documented as of this encounter
--- OUTSIDE RECORDS SUMMARY | 2023-12-08 20:07 | External Medical Summary ---
Author Name Unknown Address Unknown Organization K09[facility] [address] [place] [address] Laboratory Report Ordering Provider Test Date Status TONY KRUEGER 06/14/2023 08:36:35 Final Observation Date Value Abnormality Reference (Units ) Status SYNC LEUKOCYTES IN BLOOD BY AUTOMATED COUNT 06/14/2023 08:36:35 5.47 4.00-10.80 (K/uL) Final Neutrophils/100 leukocytes in Blood by Manual count 06/14/2023 08:36:35 60.0 40.0-75.0 (%) Final Lymphocytes/100 leukocytes in Blood by Manual count 06/14/2023 08:36:35 27.0 18.0-42.0 (%) Final Monocytes/100 leukocytes in Blood by Manual count 06/14/2023 08:36:35 10.0 1.0-11.0 (%) Final Eosinophils/100 leukocytes in Blood by Manual count 06/14/2023 08:36:35 3.0 0.0-6.0 (%) Final Neutrophils [#/volume] in Blood by Manual count 06/14/2023 08:36:35 3.28 1.80-7.70 (K/uL) Final Lymphocytes [#/volume] in Blood by Manual count 06/14/2023 08:36:35 1.48 1.00-4.80 (K/uL) Final Monocytes [#/volume] in Blood by Manual count 06/14/2023 08:36:35 0.55 0.00-1.10 (K/uL) Final Eosinophils [#/volume] in Blood by Manual count 06/14/2023 08:36:35 0.16 0.00-0.70 (K/uL) Final Nucleated erythrocytes/100 leukocytes [Ratio] in Blood by Automated count 06/14/2023 08:36:35 Final Variant lymphocytes [Presence] in Blood by Light microscopy 06/14/2023 08:36:35 Present Abnormal None Seen Final Performing Location [facility] [address] [place] [address]
--- OUTSIDE RECORDS SUMMARY | 2023-12-08 20:07 | External Medical Summary | Summary of Care ---
Author Name Unknown Organization [facility] Address [address] [place] [address] Phone [phone] Care Team Providers Care Mill Hand Name Role Phone Rubio Dias MD Primary Care Provider Reason for Visit * Reason Onset Date Comments Precert In Process 06/14/2023 13 MARGARITA FARIA E OMNIPOD Encounter Details Date Type Department Care Team Description 06/14/2023 Telephone [facility] [place] [address], [place] [phone] Alicia Pittman MD [address] [place] [address] Precert In Process (13 MA [...] hemoglobin A1c goal of less than 7.0% ([facility]) Take 1 Tablet by mouth [...] 30 mL 11 02/16/2023 Active Dexcom G6 Fisher Trawl Net Device Use as directed 1 Each 0 02/16/2023 Active Dexcom G6 Sensor Apply a new sensor every 10 days 9 Each 3 02/16/2023 Active Dexcom G6 Transmitter Use with dex Inkerwang continuous glucose sensor as directed by service unit operator 1 Each 4 02/16/2023 Active Mycophenolate Sodium [...] Information: Prescriber: [place] [id number] Primary Visit Coverage Payer Plan Sponsor Code Group Number Group Name MEDICARE MEDICARE A AND B 1 Primary Visit Coverage Subscriber ID Name N Address [id number] MIRZA GILES [id number] [place] [id number] Secondary Visit Coverage Payer Plan Sponsor Code Group Number Group Name [facility] [id number] Secondary Visit Coverage Subscriber ID Name SSN Address [id number] MIRZA GILES [id number] [place] [phone] documented in this encounter Plan of Treatment Upcoming Encounters Date Type Specialty Care Team Description 07/12/2023 Hem/Onc Treatment [facility], [address] Hem Onc [address] [facility] [place] [address] 08/24/2023 Office Visit Endocrinology Codi Cam PA-C [address] [place] [address] 08/24/2023 Office Visit Transplant Clinic Elder Rooney DNP [address] [place] [address] Health Maintenance Due Date Last [...] this encounter Medical Devices Implanted Type Area Chief Librarian Branch Device Identifier Shelf Expiration Date Model / Serial / Lot Port Implant W/8f Poly Cath - [id number] Implanted:Qty : 1 on 05/12/2021 by Dong Ackerman, DO at OR [facility] Right: Chest CR BARD : PERIPHERAL VASCULAR [id number] 08/02/2021 [id number] / / [id number] documented as of this encounter Advance Directives [...] the patient have Health Care Power of Account Solutions Analyst? No Full Code 09/24/2018 3:28 PM 09/25/2018 5:03 AM Thi s order reflects the patients wishes and were consensually agreed upon. Question Answer Comments Discussion of Advance Directives occurred with: Not Discussed Does the patient have a Living Will? No Does the patient have Health Care Power of Account Solutions Analyst? No Care Teams Mill Hand Relationship Specialty Start Date End Date Rubio Dias MD [address] [place] [address] [place] [address] PCP - General Family Medicine 12/22/22 documented as of this encounter
--- OUTSIDE RECORDS SUMMARY | 2023-12-08 20:07 | External Medical Summary | Summary of Care ---
Author Name Unknown Organization [facility] Address [address] [place] [address] Phone [phone] Care Team Providers Care Inspector Watch Assembly Name Role Phone Rubio Dias MD Primary Care Provider [phone] Reason for Referral * Evaluate & Treat - Unlimited Visits (Within 10 days (routine)) - Authorized Specialty Diagnoses / Procedures Referred By Bob banerjee Referred To Contact Manager Of Network / Nutrition Services Diagnoses Type 2 diabetes mellitus with hemoglobin A1c goal of less than 7.0% ([facility]) Apurva Lanier PA-C [address] [place] [address] Referral ID Status Reason Start Date Expiration Date Visits Requested Visits Authorized [id number] Authorized Specialty Services Required 06/15/[phone] Question Answer Referral Priority Within 10 days (routine) Reason for Referral Type 2 Diabetes Is this a newly diagnosed condition? No Comments + insulin pump class This referral is for Diabetes Self-Management Training (DSMT) by a recognized [place] Diabetes Association (ADA) hand grinder: Nurse (RN), Registered Dietitian Sewer Maintenance Supervisor (RDN), and/or Diabetes Medical Nutrition Therapy (MNT) Management (dietitian only). Diabetes educators are responsible for assessing the participant's diabetes education needs, and providing diabetes self-management training in accordance with the standards set by the ADA for DSMT. Any adjustment in diabetes therapy will be made within the guidelines of standards of practice and [place] approved policies and procedures. I understand that the hand grinder will keep me informed. Areas of Education: Pathophysiology Nutrition Physical Activity Medications Monitoring Acute Complications Chronic Complications Psychosocial Management Promote Health/Behavior Change Participant will be offered 1:1 education training if there is a lack of classes available within 2 months. Providers can also order 1:1 training if indicated for participant for the following reasons: 1:1 Training for Insulin Initiation Participant Inappropriate for Class Setting By my electronic signature, I understand that my patient will be offered the comprehensive ADA content area above unless deemed not appropriate of I specify otherwise here: Encounter Details Date Type Department Care Team Description 06/14/2023 Telephone Endocrinology, [place] [address] [place] [address] Alicia Pittman MD [address] [place], [place] [phone] Allergies Active Allergy Reactions Severity Noted Date [...] 30 mL 11 02/16/2023 Active Dexcom G6 Touch Up Painter Hand Device Use as directed 1 Each 0 02/16/2023 Active Dexcom G6 Sensor Apply a new sensor every 10 days 9 Each 3 02/16/2023 Active Dexcom G6 Transmitter Use with dex com continuous glucose sensor as directed by executive admin 1 Each 4 02/16/2023 Active Mycophenolate Sodium [...] as of this encounter Miscellaneous Notes * Addendum Note - Apurva Lanier PA-C - 06/15/2023 7:26 AM EDT Addended by: APURVA LANIER on: 06/15/2023 07:26 AM Modules accepted: Orders * Telephone Encounter - Apurva Lanier PA-C - 06/15/2023 7:25 AM EDT Sent ADA referral to be scheduled for pump class in July. PARs please assist in schedule for video home DM prepump class Apurva Lanier PA-C * Telephone Encounter - KO Hilliard - 06/14/2023 8:05 AM EDT Pt l/m requesting an Insulin Pump that is compatible with the Dexcom G6. He would like new script sent to the [facility] in [place]. documented in this encounter Plan of Treatment Upcoming Encounters Date Type Specialty Care Team Description 07/12/2023 Hem/Onc Treatment Hematology [facility], [address] Hem Onc [address] [place] [address] 08/24/2023 Office Visit Endocrinology Codi Cam PA-C [address] [place] [address] 08/24/2023 Office Visit Transplant Clinic Elder Rooney, LIBERTAD [address] [place] [address] Scheduled Referrals Name Type Priority Associated Diagnoses Orde r Schedule DIABETES MANAGEMENT EDUCATION (ADA) REFERRAL Referral Within 10 days (routine) Type 2 diabetes mellitus with hemoglobin A1c goal of less than 7.0% ([facility]) Ordered: 06/15/2023 Health Maintenance Due Date Last Done Comments [...] this encounter Medical Devices Implanted Type Area Hogshead Wrecker Device Identifier Shelf Expiration Date Model / Serial / Lot Port Implant W/8f Poly Cath - [id number] Implanted:Qty : 1 on 05/12/2021 by Dong Ackerman, DO at OR [facility] Right: Chest CR BARD : PERIPHERAL VASCULAR [id number] 08/02/2021 [id number] / / [id number] documented as of this encounter Visit Diagnoses Diagnosis Type 2 diabetes mellitus with hemoglobin A1c goal of less than 7.0% ([facility])- Primary documented in this encounter Advance Directives Latest [...] the patient have Health Care Power of Manager Home Healthcare? No Full Code 09/24/2018 3:28 PM 09/25/2018 5:03 AM Thi s order reflects the patients wishes and were consensually agreed upon. Question Answer Comments Discussion of Advance Directives occurred with: Not Discussed Does the patient have a Living Will? No Does the patient have Health Care Power of Manager Home Healthcare? No Care Teams Inspector Watch Assembly Relationship Specialty Start Date End Date Rubio Dias MD [address] [place] [address] [place] [address] PCP - General Family Medicine 12/22/22 documented as of this encounter
[2023-12-08] MEDS: TAMSULOSIN HCL 0.4 MG CAP PO SCH (21:50)
[2023-12-08] MEDS: PIPERACILLIN/TAZOBACTAM 4.5 GM in DEXTROSE 5% MINI-B 100 ML IV SCH (21:50)
[2023-12-08] MEDS: PREGABALIN 75 MG CAP PO SCH (21:54)
[2023-12-09] MEDS: VANCOMYCIN HCL 1,250 MG in SODIUM CHLORIDE 0.9% 250 ML IV SCH (00:09)
[2023-12-09] MEDS: INSULIN ASPART PER UNIT CHARGE SC SCH ×3 (00:18→13:14)
[2023-12-09] MEDS ORDERED: Nursing to Pharmacy Communication SCH (00:30)
[2023-12-09 07:02] LABS: Hematocrit (blood only) 38.8 % (42.0-52.0); Mean Corpuscular Hemoglobin 28.9 pg (25.0-34.0); Mean Corpuscular Hgb Conc 33.5 g/dL (32.0-36.0); Mean Corpuscular Volume 86.2 fL (80.0-100.0); Mean Platelet Volume 9.5 fL (9.4-12.4); Platelet Count 338 K/uL (130-400); RDW Coefficient of Variation 12.7 % (11.5-14.5); RDW Standard Deviation 39.8 fL (36.4-46.3)
[2023-12-09 07:39] LABS: Albumin Globulin Ratio 1.3 (0.9-2); Albumin Level 3.6 gm/dl (3.4-5.0); Bilirubin,Total 0.4 mg/dl (0.2-1.0); Calcium 9.4 mg/dl (8.6-10.3); Creatinine Clr Calc Pharmacy 90.2 ml/min; Est GFR (African American) 74.5 ml/min; Est GFR (Non-African American) 64.3 ml/min; Globulin 2.7 gm/dl (2.5-4.0); Magnesium 1.9 mg/dl (1.7-2.4); Potassium 4.9 mmol/L (3.5-5.1); Total Protein 6.3 gm/dl (6.0-8.3)
[2023-12-09 07:50] LABS: ALC (manual) 2.24 K/uL (1.2-3.4); Eosinophils # (manual) 0.16 K/uL (0-0.50); Eosinophils % (manual) 3 %; Lymphocytes # (manual) 2.24 K/uL (1.2-3.4); Lymphocytes % (manual) 43 %; Monocytes # (manual) 0.31 K/uL (0.11-0.59); Monocytes % (manual) 6 %; Neutrophils % (manual) 48 %
--- NOTE | 2023-12-09 08:00 | Ultrasound Report ---
ULTRASOUND RIGHT LOWER EXTREMITY ARTERIAL; ANKLE BRACHIAL INDICES CLINICAL HISTORY: Left foot wound. Peripheral vascular disease. COMPARISON STUDY: No priors. TECHNIQUE: Real-time poe scale and color Doppler sonography of the arteries of the right and left lo wer extremity is performed from the inguinal crease to the foot. Ankle brachial indices were attempte d. FINDINGS: Ankle brachial indices: Right brachial pressure is measured at 176. The dorsalis pedis and posterior tibial arteries were noncompressible bilaterally. Right lower extremity: Atherosclerotic plaque and irregularity is seen throughout the arteries of the right lower extremity. There are triphasic arterial waveforms in the common femoral artery with [place] cities measuring up to 114 cm/s. The profunda femoris artery is patent with velocities measuring up t o 78 cm/s. There are triphasic arterial waveforms throughout the superficial femoral and popliteal ar teries. Velocities in the superficial femoral artery measure up to 107 cm/s, and velocities in the po pliteal artery measure up to 60 cm/s. There is two-vessel runoff to the foot. The anterior tibial and posterior tibial arteries are patent with velocities measuring up to 112 cm/s. There is flow shown w ithin the proximal peroneal artery with velocities measuring up to 90 cm/s. The ghy-rx-qhnzqa portion of the vessel were not visualized. This may be due to heavy calcification or occlusion. The dorsalis pedis artery is patent with velocities measuring up to 131 cm/s. Left lower extremity: Atherosclerotic plaque and irregularity is seen throughout the arteries of the left lower extremity. There are triphasic waveforms in the common femoral artery with velocities lucrecia uring up to 124 cm/s. The profunda femoris artery is patent with velocities measuring up to 83 cm/sec ond. There are triphasic waveforms throughout the superficial femoral and popliteal arteries. Velocit ies in the superficial femoral artery measures up to 131 cm/s, and velocities in the popliteal artery measure up to 111 cm/s. There are monophasic to biphasic waveforms in the calf arteries with three-v essel runoff to the foot. Velocities in the calf arteries measure up to 138 cm/s. The dorsalis pedis artery is patent with velocities measuring up to 155 cm/s. IMPRESSION: 1. Advanced atherosclerotic plaque is seen throughout the arteries of the right and left lower extrem ity. Ankle brachial indices could not be evaluated as the ankle vessels could not be compressed. 2. There is at least two-vessel runoff to the right foot. The ouq-kp-jiuftk peroneal artery was not v isualized, and this may be due to heavy atherosclerotic calcification versus occlusion. 3. There is no sonographic evidence of high-grade stenosis or focal vessel cut off throughout the art eries of the left lower extremity. Dictated: 12/09/2023 7:41 AM Transcribed: 12/09/2023 7:54 AM Ruel [id number] [email or web address] Electronically signed by: Mendoza Sandoval M.D. 12/09/2023 7:59 AM
[2023-12-09] MEDS: FOLIC ACID 1 MG TAB PO SCH (08:15)
[2023-12-09] MEDS: ASPIRIN 81 MG ECTAB PO SCH (08:15)
[2023-12-09] MEDS: ROSUVASTATIN CALCIUM 20 MG TAB PO SCH (08:15)
[2023-12-09] MEDS: LANTUS PER UNIT CHARGE SC SCH ×2 (08:20→21:36)
--- NOTE | 2023-12-09 10:51 | Pharmacy Report ---
Pharmacy PK ABX Note - Date of Service December 09, 2023 - Assessment and Plan Assessment 57 year old M receiving vancomcyin/zosyn for treatment of left foot ulcer/wound. Podiatry following. Pertinent microbiologic data includes: Previous foot cultures with E. coli, anaerobes, group B Beta strep. Day #2 Plan Vancomycin * Loading dose: 2500 mg IV x 1 * Maintenance dose: 1250 mg IV every 12 hours * Regimen is predicted to achieve target AUC/IVETTE of 400-600 mg/L.hr * Random level is ordered for 12/09 @ 0800 Pharmacy will continue to follow and will adjust dose/frequency as necessary. Thank you. Pharmacy has transitioned to AUC monitoring for vancomycin. AUC/IVETTE is the preferred PK/PD target and is associated with decreased risk of nephrotoxicity compared to traditional trough targets.
--- NOTE | 2023-12-09 12:29 | Orthopedic Progress Note ---
Date of Service December 09, 2023 Assessment & Plan (1) Wound of left foot: (2) Chronic ulcer of left foot with fat layer exposed: (3) Dry gangrene: (4) Diabetic foot infection: (5) Diabetes mellitus with hyperglycemia: Plan Patient was examined and evaluated. We discussed at length etiology and treatment of his left foot ulcers and infection. - For now, consider Santyl collagenase ointment for treatment of the left forefoot ulcerations and possible necrosis. - Patient can be a surgical candidate and can warrant from surgical intervention, including debridement or digital amputation if the vascular status is more well-known. - Ideally, more invasive vascular testing could show that he is either more or less vasculopathic and could benefit from a digital amputation or digital debridements if warranted or, no vascular inflow is noted, he may benefit most significantly from a higher level or more proximal amputation. - For now, with no significant infection suspected, the Santyl can help debride the ulcerations more conservatively. He should continue with IV antibiotics prophylactically/empirically. - We'll continue to follow, specifically to visualize if there is any demarcation of necrotic or nonviable tissue that could warrant amputations. - Discussed these plans with the patient as well. If he continues to be stable without any severe or systemic infection, he can be discharged in the short-term and follow-up outpatient for these wounds. For now, hospitalization is warranted for coordination of care and these advanced imaging modalities. Admission and Anticipated Discharge Date Admission Date: December 08, 2023 Supervising Physician Co-Signing Physician Notes I have seen and discussed the case with the collaborating advanced practitioner. I agree with the above H&P. I have reviewed and confirmed the patients medical history, the findings on physical examination, and the patients diagnosis and treatment plan with Tiffanie CLARK and agree with the information documented. In short, Mr. Tamez is a 57 year old gentleman with long standing insulin dependent diabetes c/b CKD s/p renal transplant at [facility], prior osteomyelitis, who is admitted for evaluation of simons sustained to digits of left lower extremity. Patient states that he was running a hot bath and using his left foot to "stir the water" while he was on the phone. He has lost sensation to temperature/pain "long ago." He otherwise states he is in his usual state of health and presenting after 1 week of antibiotics with no improvement. Labs revealed ESR 58 CRP 1.46. XR no osteo. Podiatry consulted. GENERAL APPEARANCE: AxOx4, nontoxic appearing gentleman, no acute distress. HEENT: NC, AT. MMM. EOMI, anisocoria L>R, clear conjunctiva, oropharynx clear. NECK: Supple without lymphadenopathy. No stiffness or restricted ROM. HEART: Normal rate and regular rhythm, normal S1/S1, no m/r/g LUNGS: CTAB, moving air well. No crackles or wheezes are heard. ABDOMEN: Soft, nontender, nondistended with good bowel sounds heard. BACK: No CVAT, no obvious deformity. EXTREMITIES: Without cyanosis, clubbing or edema. NEUROLOGICAL: Grossly nonfocal. Alert and oriented, moving all 4 extremities. CN not formally tested but appear grossly intact. Skin: right foot with no overt abnormalities or wounds noted. 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 All of the aforementioned completed outside of collaborating with the assigned advanced practitioner for a full treatment plan. I have reviewed the advanced practitioner's documentation, and I agree with, and take responsibility for the plan of care Subjective Patient was examined and evaluated at bedside. He states he has no new concerns and has been doing well on this hospitalization. He had his MRI and arterial Doppler. He has been getting antibiotics as well. He has further gotten up with physical therapy and been ambulating without any issue. He denies any new concerns or new evidence of infection. He is interested when he needs to be doing moving forward to help heal these wounds. Review of Systems Constitutional: + fatigue and + weakness; no fever and n o chills Eyes: no problem reported Ear, Nose, Mouth, Throat: no problem reported Respiratory: no problem reported Cardiovascular: no problem reported Gastrointestinal: no problem reported Genitourinary: no problem reported Musculoskeletal: + limited range of motion Integumentary: + non-healing lesions, + skin ulcer and + wounds Neurologic: + loss of sensation and + numbness Psychiatric: no problem reported Endocrine: no problem reported Physical Exam Physical Exam: lower extremity focused exam: DP/PT pulses nonpalpable. Limb temperature is cool to cool proximal to distal. Advanced trophic changes are noted bilaterally, including thinning of the skin and hair growth. No obvious biomechanical abnormalities noted to the right foot. Left foot has semirigid hammertoe contractures 2 to toes 2 through 4 with diffuse ulceration extending across all of the lesser digits. Specifically, the left second through fifth toes are exhibiting evidence of dry gangrene, including absent capillary fill time, thickening of the skin, and diffuse hardening distally. There is no liat purulence and no active bleeding on clinical exam. Minimal malodor is appreciated. No ascending cellulitis is appreciated. Absent protective and touch sensation is noted. No pain on palpation or range of motion of the toes. Constitutional: well developed, well nourished, + ill appearing and + obese Eyes: PERRL, conjunctivae normal, anicteric sclerae ENMT: external ear and nose normal, oropharynx normal Neck: trachea midline, no thyromegaly Respiratory: normal respiratory effort, lungs clear to auscultation no respiratory distress Cardiovascular: Rate/Rhythm: regular rate and regular rhythm Vessels: + posterior tibial pulses abnormal and + dorsalis pedis pulses abnormal Gastrointestinal (Abdomen): normal bowel sounds, soft, nontender, no hepatosplenomegaly Musculoskeletal: no cyanosis or clubbing, extremities motor strength 5/5 Skin: no rashes, warm and dry + lesion, + ulcer and + eschar Neurologic: moves all extremities; + abnormal touch/pain/proprioception and + abnormal sensation to monofilament Psychiatric: A+Ox3, euthymic affect Results & Data Vital Signs (Past 12 Hours) Vital Signs Temp Pulse Pulse Resp BP Pulse Ox O2 Del Method 12/09/23 12:18 37 C 70 16 150/70 H 96 Room Air 12/09/23 08:12 36.7 C 67 16 158/60 H 98 Room Air 12/09/23 08:10 37 C 64 16 148/72 H 96 Room Air 12/09/23 05:59 36.7 C 66 18 125/62 97 Room Air (5) Diabetes mellitus with hyperglycemia Diabetes mellitus buttermaker continuous churn insulin use: with halfway use Diabetes mellitus type: type 2 Qualified Code(s): E11.65 - Type 2 diabetes mellitus with hyperglycemia; Z79.4 - alf (current) use of insulin
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
[2023-12-09] MEDS: COLLAGENASE OINT 30 GM TUBE EXT SCH (13:27)
[2023-12-09] MEDS: ADVANCED PROBIOTIC 625 MG CAPSULE PO SCH (14:36)
--- NOTE | 2023-12-09 17:24 | Hospitalist Progress Note ---
Date of Service December 09, 2023 Assessment & Plan (1) Wound of left foot: (2) Diabetes mellitus with hyperglycemia: (3) Hypertension: (4) Hyperlipidemia: (5) Immunocompromised: (6) Renal transplant recipient: Plan: Per previous hospitalist notes with addendum: This is a 57-year-old male who has significant past medical history of 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 2-5th Digits, Left Foot Infected wounds, Cellulitis Gangrene, PAD wound in setting of uncontrolled T2DM admit to medical obtain L foot MRI ESR 58, CRP 1.46 consult podiatry, Dr. Mar Consult wound care empiric IV Vancomycin and Zosyn will need wound cultures NPO after midnight 12/08 Will obtain blood cultures Continue with vancomycin plus Zosyn day #2 Will consult ID Podiatry service consulted Santyl ointment ordered Arterial Doppler US: 1. Advanced atherosclerotic plaque is seen throughout the arteries of the right and left lower extremity. Ankle brachial indices could not be evaluated as the ankle vessels could not be compressed. 2. There is at least two-vessel runoff to the right foot. The [id number] peroneal artery was not visualized, and this may be due to heavy atherosclerotic calcification versus occlusion. 3. There is no sonographic evidence of high-grade stenosis or focal vessel cut off throughout the arteries of the left lower extremity. Vascular surgery consulted Mild PAD, small vessel disease, no indications for vascular surgical intervention Status post kidney transplant s/p IV belatacept monthly, last hold mycophenolate, confirmed with transplant nurse coordinator On -Call They ask to be kept updated on his status and when he is getting d/c. You can tiger text them under [employer] TT and search transplant nurse coordinate on- call Uncontrolled T2DM, insulin dependent neuropathy and retinopathy consult glycemic pharmacy pt has insulin pump in place he is out of pump supples and dexcom CGM supplies, he will need this upon discharge consult health educator Lantus/novolog per protocol CAD, hx of stents HTN HLD continue asa, statin blood pressure elevated on admission PRN Hydralazine MATT cpap at HS DVT ppx: Heparin SC FULL CODE PCP: Juan Disposition:pending lives at home Admission and Anticipated Discharge Date Admission Date: December 08, 2023 Subjective Follow-up for cellulitis of the left toes, etc. Seen resting in bed, comfortable, not in distress Patient's family at the bedside visiting States he really cannot feel any sensation in his feet Denies fevers or chills, nausea vomiting No other new symptoms Review of Systems Review of Systems: all noted and negative except for above Physical Exam Physical Exam: General- oriented x 3, not in distress, speaks in sentences with no effort or accessory muscle use Eyes- anicteric Neck- no JVD Lungs- clear breath sounds bilaterally, no crackles or wheeze Heart- normal rate, regular rhythm; no murmurs Abdomen- normal bowel sounds, nondistended, soft, nontender Extremities- no pretibial edema, no calf tenderness Left foot, 2/toes: Positive erythema, blisters Neuro- alert, oriented x 3; no gross focal neurologic deficits Skin- warm & dry Results & Data Results & Data Vital Signs (Past 12 Hours) Vital Signs Temp Pulse Pulse Resp BP Pulse Ox O2 Del Method 12/09/23 15:43 36.5 C 77 18 177/94 H 97 Room Air 12/09/23 12:18 37 C 70 16 150/70 H 96 Room Air 12/09/23 08:12 36.7 C 67 16 158/60 H 98 Room Air 12/09/23 08:10 37 C 64 16 148/72 H 96 Room Air 12/09/23 05:59 36.7 C 66 18 125/62 97 Room Air all noted and reviewed including below (2) Diabetes mellitus with hyperglycemia 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
[2023-12-10] MEDS: LANTUS PER UNIT CHARGE SC SCH (08:27)
[2023-12-10 09:25] LABS: Creatinine Clr Calc Pharmacy 96.4 ml/min; Est GFR (African American) 80.9 ml/min; Est GFR (Non-African American) 69.8 ml/min
--- NOTE | 2023-12-10 11:23 | Pharmacy Report ---
Pharmacy PK ABX Note - Date of Service December 10, 2023 - Assessment and Plan Assessment 57 year old M receiving Vancomcyin & Zosyn for treatment of left foot ulcer/wound. Podiatry following. Pertinent microbiologic data includes: Previous foot cultures with E. coli, anaerobes, group B Beta strep. * Day #2 of antimicrobial therapy. * Afebrile and without leukocytosis. * Blood cultures still pending. Plan Vancomycin * Current regimen: 1250 mg IV every 12 hours * Random level obtained 12/10/23 resulted as 15.6 mcg/mL. This is predicted to achieve target AUC/IVETTE of 400-600 mg/L.hr * Predicted AUC at steady state: 490 mg/L.hr * Continue 1250 mg IV every 12 hours * Repeat random level ordered for: 12/12/23 Zosyn * 4.5 g IV every 8 hours Pharmacy will continue to follow and will adjust dose/frequency as necessary. Thank you. Pharmacy has transitioned to AUC monitoring for vancomycin. AUC/IVETTE is the preferred PK/PD target and is associated with decreased risk of nephrotoxicity compared to traditional trough targets.
--- NOTE | 2023-12-10 13:54 | Pharmacy Report ---
Pharmacy Glycemic Short Note 2 - Date of Service December 10, 2023 - Glycemic Short BSG Results (Last 24 hours): 12/09/23 12/09/23 12/10/23 16:55 20:44 07:52 POC Glucose 238 H 144 H 173 H 12/10/23 11:51 POC Glucose 246 H OUTPATIENT ANTIDIABETIC REGIMEN: * Insulin pump - from outpatient records - basal 1.7 units/hr, CF 20, CR 5 * HbA1c pending ASSESSMENT: 12/09: * Ramesh received 85 units of insulin yesterday, 40 basal + 45 bolus. BSGs were: [id number] mg/dL. * Fasting BSG 173 mg/dL this AM. Will increase basal ~20% today. * Patient continues tolerating T2DM diet. Unsure of reason for hyperglycemia outside of stress. Will tighten CR today. 12/08: * 57 year old admitted with L foot injury. Pharmacy consulted for glycemic management. Confirmed with RN patient with pump attached and instructed RN to have patient take off this afternoon and that we will be managing with SQ insulin * Patient last bolused themselves with pump with 10 units at 1:30 - BSG repeat this afternoon trending down 189 mg/dL * Plan to start basal insulin with dinner this evening, will provide scale based upon BSG PLAN FOR INPATIENT GLYCEMIC CONTROL: * Basal insulin * Lantus 25 units SC BID * Bolus insulin * NovoLog per scale ACHS or Q6hrs while NPO * Goal Range: Low 110 mg/dL - High 140 mg/dL * Correction Factor: 15 mg/dL/unit * Nutritional / Prandial insulin per carb ratio of 1 unit per 3 grams CHO consumed
--- NOTE | 2023-12-10 15:47 | Hospitalist Progress Note ---
Date of Service December 10, 2023 Assessment & Plan (1) Wound of left foot: (2) Diabetes mellitus with hyperglycemia: (3) Hypertension: (4) Hyperlipidemia: (5) Immunocompromised: (6) Renal transplant recipient: Plan: Per previous hospitalist notes with addendum: This is a 57-year-old male who has significant past medical history of 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 2-5th Digits, Left Foot Infected wounds, Cellulitis Gangrene, PAD wound in setting of uncontrolled T2DM admit to medical obtain L foot MRI ESR 58, CRP 1.46 consult podiatry, Dr. Mar Consult wound care empiric IV Vancomycin and Zosyn will need wound cultures NPO after midnight 12/08 Will obtain blood cultures Continue with vancomycin plus Zosyn day #2 Will consult ID Podiatry service consulted Santyl ointment ordered Arterial Doppler US: 1. Advanced atherosclerotic plaque is seen throughout the arteries of the right and left lower extremity. Ankle brachial indices could not be evaluated as the ankle vessels could not be compressed. 2. There is at least two-vessel runoff to the right foot. The [id number] peroneal artery was not visualized, and this may be due to heavy atherosclerotic calcification versus occlusion. 3. There is no sonographic evidence of high-grade stenosis or focal vessel cut off throughout the arteries of the left lower extremity. Vascular surgery consulted Mild PAD, small vessel disease, no indications for vascular surgical intervention 12/09 Blood cultures: Pending Cellulitis improving Continue IV vancomycin plus Zosyn day #3 ID consulted Continue Santyl ointment application to affected toes Status post kidney transplant s/p IV belatacept monthly, last hold mycophenolate, confirmed with transplant nurse coordinator On -Call They ask to be kept updated on his status and when he is getting d/c. You can tiger text them under ismael TT and juma transplant nurse coordinate on- call 12/[address] [facility] practice coordinator De Advises to hold mycophenolate until antibiotic course is finished Uncontrolled T2DM, insulin dependent neuropathy and retinopathy consult glycemic pharmacy pt has insulin pump in place he is out of pump supples and dexcom CGM supplies, he will need this upon discharge consult environmental educator Rohan/brianna per protocol CAD, hx of stents HTN HLD continue asa, statin blood pressure elevated, improved upon repeat PRN Hydralazine Monitor closely MATT cpap at HS DVT ppx: Heparin SC FULL CODE PCP: Juan Disposition:pending lives at home Admission and Anticipated Discharge Date Admission Date: December 08, 2023 Subjective Follow-up for infected left toes, etc. Seen resting in bed, sleeping but easily awakened States he feels fine overall Does not feel pain over the affected toes No fevers or chills, nausea or vomiting no chest pain, dyspnea, palpitations, dizziness No other new symptoms Review of Systems Review of Systems: all noted and negative except for above Physical Exam Physical Exam: General- oriented x 3, not in distress, speaks in sentences with no effort or accessory muscle use Eyes- anicteric Neck- no JVD Lungs- clear breath sounds bilaterally, no crackles or wheeze Heart- normal rate, regular rhythm; no murmurs Port in place right chest wall Abdomen- normal bowel sounds, nondistended, soft, nontender Extremities- no pretibial edema, no calf tenderness Left foot: No edema or erythema Toes with dressing in place, no bleeding or discharge Neuro- alert, oriented x 3; no gross focal neurologic deficits Skin- warm & dry Results & Data Results & Data Vital Signs (Past 12 Hours) Vital Signs Temp Pulse Resp BP BP Pulse Ox O2 Del Method 12/10/23 15:12 36.7 C 79 18 199/106 H 196/104 H 97 Room Air 12/10/23 07:37 36.3 C L 67 18 129/65 98 Room Air all noted and reviewed including below (2) Diabetes mellitus with hyperglycemia Diabetes mellitus jail insulin use: with manager long term care use Diabetes mellitus type: type 2 Qualified Code(s): E11.65 - Type 2 diabetes mellitus with hyperglycemia; 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
[2023-12-10] MEDS: hydrALAZINE HCL 20 MG/ML VIAL IV ONE (16:13)
[2023-12-10] MEDS: HEPARIN SOD 5,000 UNIT/0.5 ML VIAL SQ SCH (20:59)
[2023-12-10] MEDS ORDERED: NON-FORMULARY MEDICATION (Mycophenolate Sodium 180 mg tablet,delayed release (DR/EC)) PO SCH (21:00)
[2023-12-11 07:05] LABS: Estimated Average Glucose 203 mg/dl; Hemoglobin A1C 8.7 % (4.5-5.6)
[2023-12-11] MEDS: LANTUS PER UNIT CHARGE SC SCH (08:14)
[2023-12-11] MEDS ORDERED: amLODIPine BESYLATE 5 MG TAB PO SCH (09:00)
[2023-12-11] MEDS: HEPARIN 100 UNIT/ML 5ML FLUSH FLUSH PRN (09:03)
[2023-12-11] MEDS: VANCOMYCIN HCL 1,250 MG in SODIUM CHLORIDE 0.9% 250 ML IV SCH (11:43)
--- NOTE | 2023-12-11 13:45 | Pharmacy Report ---
Pharmacy Glycemic Short Note 2 - Date of Service December 11, 2023 - Glycemic Short BSG Results (Last 24 hours): 12/10/23 12/10/23 12/11/23 16:30 20:12 07:38 POC Glucose 114 H 116 H 173 H 12/11/23 11:37 POC Glucose 218 H OUTPATIENT ANTIDIABETIC REGIMEN: * Insulin pump - from outpatient records - basal 1.7 units/hr, CF 20, CR 5 * HbA1c pending ASSESSMENT: 12/10: * Patient received 116 units of insulin yesterday, 50 basal + 66 units of bolus. BSGs 490-938-289-116 mg/dL. * Carb ratio tightened with lunch BSG yesterday with improvement in prandial BSGs, will continue- lunch improved today although still elevated * Fasting remained above goal, will increase basal 20% today 12/09: * Ramesh received 85 units of insulin yesterday, 40 basal + 45 bolus. BSGs were: 030-008-360-144 mg/dL. * Fasting BSG 173 mg/dL this AM. Will increase basal ~20% today. * Patient continues tolerating T2DM diet. Unsure of reason for hyperglycemia outside of stress. Will tighten CR today. 12/08: * 57 year old admitted with L foot injury. Pharmacy consulted for glycemic management. Confirmed with RN patient with pump attached and instructed RN to have patient take off this afternoon and that we will be managing with SQ insulin * Patient last bolused themselves with pump with 10 units at 1:30 - BSG repeat this afternoon trending down 189 mg/dL * Plan to start basal insulin with dinner this evening, will provide scale based upon BSG PLAN FOR INPATIENT GLYCEMIC CONTROL: * Basal insulin * Lantus 30 units SC BID * Bolus insulin * NovoLog per scale ACHS or Q6hrs while NPO * Goal Range: Low 110 mg/dL - High 140 mg/dL * Correction Factor: 15 mg/dL/unit * Nutritional / Prandial insulin per carb ratio of 1 unit per 3 grams CHO consumed
--- NOTE | 2023-12-11 13:57 | Hospitalist Progress Note ---
Date of Service December 11, 2023 Assessment & Plan (1) Wound of left foot: (2) Diabetes mellitus with hyperglycemia: (3) Hypertension: (4) Hyperlipidemia: (5) Immunocompromised: (6) Renal transplant recipient: Plan: Per previous hospitalist notes with addendum: This is a 57-year-old male who has significant past medical history of 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 2-5th Digits, Left Foot Infected wounds, Cellulitis Gangrene, PAD wound in setting of uncontrolled T2DM admit to medical obtain L foot MRI ESR 58, CRP 1.46 consult podiatry, Dr. Mar Consult wound care empiric IV Vancomycin and Zosyn will need wound cultures NPO after midnight 3 Will obtain blood cultures Continue with vancomycin plus Zosyn day #2 Will consult ID Podiatry service consulted Santyl ointment ordered Arterial Doppler US: 1. Advanced atherosclerotic plaque is seen throughout the arteries of the right and left lower extremity. Ankle brachial indices could not be evaluated as the ankle vessels could not be compressed. 2. There is at least two-vessel runoff to the right foot. The [id number] peroneal artery was not visualized, and this may be due to heavy atherosclerotic calcification versus occlusion. 3. There is no sonographic evidence of high-grade stenosis or focal vessel cut off throughout the arteries of the left lower extremity. Vascular surgery consulted Mild PAD, small vessel disease, no indications for vascular surgical intervention 12/09 Blood cultures: Pending Cellulitis improving Continue IV vancomycin plus Zosyn day #3 ID consulted Continue Santyl ointment application to affected toes 12/10 Blood cultures: negative so far continue Vanco + ZOsyn Day 4 awaiting ID input for abx continue Santyl Status post kidney transplant s/p IV belatacept monthly, last hold mycophenolate, confirmed with transplant nurse coordinator On -Call They ask to be kept updated on his status and when he is getting d/c. You can tiger text them under [employer] TT and juma transplant nurse coordinate on- call 12/09 Discussed with [facility] dental treatment coordinator De Advises to hold mycophenolate until antibiotic course is finished Uncontrolled T2DM, insulin dependent neuropathy and retinopathy consult glycemic pharmacy pt has insulin pump in place he is out of pump supples and dexcom CGM supplies, he will need this upon discharge consult peer educator Rohan/novolog per protocol CAD, hx of stents HTN HLD continue asa, statin BP improving PRN Hydralazine Monitor closely MATT cpap at HS DVT ppx: Heparin SC FULL CODE PCP: Juan Disposition: lives at home with family awaiting ID recommendation re: abx regimen Admission and Anticipated Discharge Date Admission Date: December 08, 2023 Subjective ff up for cellulitis L toes, etc seen resting in bed, comfortable states he feels fine overall no pain over the L toes no fever/chills no chest pain, dyspnea, palpitations, dizziness no other symptoms Review of Systems 2 Review of Systems: all noted and negative except for above Physical Exam Physical Exam: General- oriented x 3, not in distress, speaks in sentences with no effort or accessory muscle use Eyes- anicteric Neck- no JVD Lungs- clear breath sounds bilaterally, no crackles/wheezing Heart- normal rate, regular rhythm; no murmurs Abdomen- normal bowel sounds, nondistended, soft, nontender Extremities- no pretibial edema, no calf tenderness Toes 2-5, Left: discoloration seems to be improving, no surrounding erythema/edema Neuro- alert, oriented x 3; no gross focal neurologic deficits Skin- warm & dry Results & Data Results & Data Vital Signs (Past 12 Hours) Vital Signs Temp Pulse Resp BP Pulse Ox O2 Del Method 12/11/23 07:30 Room Air 12/11/23 06:53 36.5 C 69 16 118/67 97 Room Air all noted and reviewed including below (2) Diabetes mellitus with hyperglycemia Diabetes mellitus acquisition consultant insulin use: with prison use Diabetes mellitus type: type 2 Qualified Code(s): E11.65 - Type 2 diabetes mellitus with hyperglycemia; 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
[2023-12-12 08:25] LABS: Creatinine Clr Calc Pharmacy 79.8 ml/min; Est GFR (African American) 64.3 ml/min; Est GFR (Non-African American) 55.5 ml/min
--- NOTE | 2023-12-12 09:25 | Pharmacy Report ---
Pharmacy PK ABX Note - Date of Service December 12, 2023 - Assessment and Plan Assessment 12/11: Vancomycin Day 5: reviewed vancomycin level, level predicting slightly above goal AUC/IVETTE, will adjust down due to slight increase in serum creatinine and potential for accumulation. 12/09: 57 year old M receiving Vancomcyin & Zosyn for treatment of left foot ulcer/wound. Podiatry following. Pertinent microbiologic data includes: Previous foot cultures with E. coli, anaerobes, group B Beta strep. * Day #5 of antimicrobial therapy. * Afebrile and without leukocytosis. * Blood cultures no growth x48 hours Plan Vancomycin * Current regimen: 1250 mg IV every 12 hours * Random level obtained 12/12/23 resulted as 19.1 mcg/mL. This is predicted to achieve target AUC/IVETTE above 400-600 mg/L.hr * Decrease dose to vancomycin 1000mg Q12H * Predicted AUC at steady state: 505 mg/L.hr * Repeat random level ordered for: 12/14/23 with AM labs Zosyn * 4.5 g IV every 8 hours Pharmacy will continue to follow and will adjust dose/frequency as necessary. Thank you. Pharmacy has transitioned to AUC monitoring for vancomycin. AUC/IVETTE is the preferred PK/PD target and is associated with decreased risk of nephrotoxicity compared to traditional trough targets.
--- NOTE | 2023-12-12 12:12 | Pharmacy Report ---
Pharmacy Glycemic Short Note 2 - Date of Service December 12, 2023 - Glycemic Short BSG Results (Last 24 hours): 12/11/23 12/11/23 12/12/23 16:35 20:49 07:27 POC Glucose 118 H 117 H 140 H 12/12/23 11:39 POC Glucose 288 H OUTPATIENT ANTIDIABETIC REGIMEN: * Insulin pump - from outpatient records - basal 1.7 units/hr, CF 20, CR 5 * HbA1c8.7% (12/10/23) ASSESSMENT: 12/11: * Ramesh received 119 units of insulin yesterday (60 were basal) * Fasting BSG this AM within goal range, continue current basal regimen * He is receiving Zosyn and vancomycin currently * Lunchtime BSGs tend to run high, will tighten CR further 12/10: * Patient received 116 units of insulin yesterday, 50 basal + 66 units of bolus. BSGs 415-364-452-116 mg/dL. * Carb ratio tightened with lunch BSG yesterday with improvement in prandial BSGs, will continue- lunch improved today although still elevated * Fasting remained above goal, will increase basal 20% today 12/09: * Ramesh received 85 units of insulin yesterday, 40 basal + 45 bolus. BSGs were: 645-250-951-144 mg/dL. * Fasting BSG 173 mg/dL this AM. Will increase basal ~20% today. * Patient continues tolerating T2DM diet. Unsure of reason for hyperglycemia outside of stress. Will tighten CR today. 12/08: * 57 year old admitted with L foot injury. Pharmacy consulted for glycemic management. Confirmed with RN patient with pump attached and instructed RN to have patient take off this afternoon and that we will be managing with SQ insulin * Patient last bolused themselves with pump with 10 units at 1:30 - BSG repeat this afternoon trending down 189 mg/dL * Plan to start basal insulin with dinner this evening, will provide scale based upon BSG PLAN FOR INPATIENT GLYCEMIC CONTROL: * Basal insulin * Lantus 30 units SC BID * Bolus insulin * NovoLog per scale ACHS or Q6hrs while NPO * Goal Range: Low 110 mg/dL - High 140 mg/dL * Correction Factor: 15 mg/dL/unit * Nutritional / Prandial insulin per carb ratio of 1 unit per 2.5 grams CHO consumed
[2023-12-12] MEDS: VANCOMYCIN HCL 1,000 MG in SODIUM CHLORIDE 0.9% 250 ML IV SCH (12:25)
[2023-12-12] MEDS: hydrALAZINE HCL 20 MG/ML VIAL IV PRN (13:58)
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
--- NOTE | 2023-12-12 17:44 | Hospitalist Progress Note ---
Date of Service December 12, 2023 Assessment & Plan (1) Wound of left foot: (2) Diabetes mellitus with hyperglycemia: (3) Hypertension: (4) Hyperlipidemia: (5) Immunocompromised: (6) Renal transplant recipient: Plan: Per previous hospitalist notes with addendum: This is a 57-year-old male who has significant past medical history of 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 2-5th Digits, Left Foot Infected wounds, Cellulitis Gangrene, PAD wound in setting of uncontrolled T2DM admit to medical obtain L foot MRI ESR 58, CRP 1.46 consult podiatry, Dr. Mar Consult wound care empiric IV Vancomycin and Zosyn will need wound cultures NPO after midnight 3 Will obtain blood cultures Continue with vancomycin plus Zosyn day #2 Will consult ID Podiatry service consulted Santyl ointment ordered Arterial Doppler US: 1. Advanced atherosclerotic plaque is seen throughout the arteries of the right and left lower extremity. Ankle brachial indices could not be evaluated as the ankle vessels could not be compressed. 2. There is at least two-vessel runoff to the right foot. The [id number] peroneal artery was not visualized, and this may be due to heavy atherosclerotic calcification versus occlusion. 3. There is no sonographic evidence of high-grade stenosis or focal vessel cut off throughout the arteries of the left lower extremity. Vascular surgery consulted Mild PAD, small vessel disease, no indications for vascular surgical intervention 12/09 Blood cultures: Pending Cellulitis improving Continue IV vancomycin plus Zosyn day #3 ID consulted Continue Santyl ointment application to affected toes 12/10 Blood cultures: negative so far continue Vanco + ZOsyn Day 4 awaiting ID input for abx continue Santyl Status post kidney transplant s/p IV belatacept monthly, last hold mycophenolate, confirmed with transplant nurse coordinator On -Call They ask to be kept updated on his status and when he is getting d/c. You can tiger text them under [facility] and juma transplant nurse coordinate on- call 12/09 Discussed with [facility] international exchange coordinator De Advises to hold mycophenolate until antibiotic course is finished Uncontrolled T2DM, insulin dependent neuropathy and retinopathy consult glycemic pharmacy pt has insulin pump in place he is out of pump supples and dexcom CGM supplies, he will need this upon discharge consult ict educator Rohan/novolog per protocol CAD, hx of stents HTN HLD continue asa, statin BP improving PRN Hydralazine Monitor closely MATT cpap at HS DVT ppx: Heparin SC FULL CODE PCP: Juan Disposition: lives at home with family awaiting ID recommendation re: abx regimen Admission and Anticipated Discharge Date Admission Date: December 08, 2023 Results & Data Results & Data Vital Signs (Past 12 Hours) Vital Signs Temp Pulse Pulse Resp BP BP Pulse Ox 12/12/23 15:06 36.5 C 73 16 117/71 98 12/12/23 13:44 186/97 H 12/12/23 13:23 36.6 C 73 20 194/94 H 97 12/12/23 08:23 36.4 C L 66 18 110/55 L 95 O2 Del Method 12/12/23 15:06 Room Air 12/12/23 13:44 12/12/23 13:23 Room Air 12/12/23 08:23 Room Air (2) Diabetes mellitus with hyperglycemia Diabetes mellitus watermaster insulin use: with fpc use Diabetes mellitus type: type 2 Qualified Code(s): E11.65 - Type 2 diabetes mellitus with hyperglycemia; Z79.4 - longterm (current) use of insulin (3) Hypertension Hypertension type: essential hypertension Qualified Code(s): I10 - Essential (primary) hypertension (4) Hyperlipidemia Hyperlipidemia type: unspecified Qualified Code(s): E78.5 - Hyperlipidemia, unspecified
[2023-12-12] MEDS ORDERED: CIPROFLOXACIN 500 MG TAB PO STA (18:26)
[2023-12-12] MEDS ORDERED: DOXYCYCLINE HYCLATE 100 MG CAP PO STA (18:27)
--- NOTE | 2023-12-12 19:51 | Discharge Summary ---
Discharge Summary Date of Service December 12, 2023 Notes For Next Care Provider Medication Changes From Visit Ciprofloxacin 500 mg p.o. twice daily x 5 days Doxycycline 100 mg p.o. 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 He denies any feeling to his b/l feet due to neuropathy. He states he was stirring water with his left foot and it must of been hot, but he never felt anything. The next morning he woke up and noticed drainage from the sock on this L foot. Other than his foot he has been feeling fine otherwise. He denies f/c/s, chest pain,sob,n/v/d, abd pain, change in bowel or urinary habits. He has been taking keflex for his L foot to see if that would help. Typically when he gets a wound within 72 hrs he gets signs of infection. He currently takes mycophenolate as well as IV beletacept for kidney transplant. At the beginning of this week he ran out of his dexcom supplies and his CGM isn't working. He has been on the insulin pump for for last 2 months or so. The first few weeks it has been going well, but after that he has been having issues with his pump and getting certain parameters for the pump. Admission Exam Per Admitting Provider GENERAL APPEARANCE: AxOx4, nontoxic appearing gentleman, no acute distress. HEENT: NC, AT. MMM. EOMI, anisocoria L>R, clear conjunctiva, oropharynx clear. NECK: Supple without lymphadenopathy. No stiffness or restricted ROM. HEART: Normal rate and regular rhythm, normal S1/S1, no m/r/g LUNGS: CTAB, moving air well. No crackles or wheezes are heard. ABDOMEN: Soft, nontender, nondistended with good bowel sounds heard. BACK: No CVAT, no obvious deformity. EXTREMITIES: Without cyanosis, clubbing or edema. NEUROLOGICAL: Grossly nonfocal. Alert and oriented, moving all 4 extremities. CN not formally tested but appear grossly intact. Skin: right foot with no overt abnormalities or wounds noted. Left foot with diffuse erythema of 2-5th digit, blistering on end of great hallux, diffuse skin changes c/w varying degree of burn; 2+ pedal edema Principal Dx & Hospital Course #1 = Principal Diagnosis (1) Wound of left foot: (2) Diabetes mellitus with hyperglycemia: (3) Hypertension: (4) Hyperlipidemia: (5) Immunocompromised: (6) Renal transplant recipient: (1) Wound of left foot: (2) Diabetes mellitus with hyperglycemia: (3) Hypertension: (4) Hyperlipidemia: (5) Immunocompromised: (6) Renal transplant recipient: Plan: Per previous hospitalist notes with addendum: This is a 57-year-old male who has significant past medical history of 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 2-5th Digits, Left Foot Infected wounds, Cellulitis Mild PAD, small vessel disease wound in setting of uncontrolled T2DM admit to medical obtain L foot MRI ESR 58, CRP 1.46 consult podiatry, Dr. Mar Consult wound care empiric IV Vancomycin and Zosyn will need wound cultures NPO after midnight 3 Will obtain blood cultures Continue with vancomycin plus Zosyn day #2 Will consult ID Podiatry service consulted Santyl ointment ordered Surgical intervention not recommended Arterial Doppler US: 1. Advanced atherosclerotic plaque is seen throughout the arteries of the right and left lower extremity. Ankle brachial indices could not be evaluated as the ankle vessels could not be compressed. 2. There is at least two-vessel runoff to the right foot. The [id number] peroneal artery was not visualized, and this may be due to heavy atherosclerotic calcification versus occlusion. 3. There is no sonographic evidence of high-grade stenosis or focal vessel cut off throughout the arteries of the left lower extremity. Vascular surgery consulted Mild PAD, small vessel disease, no indications for vascular surgical intervention 12/11 Blood cultures: Negative Patient placed on vancomycin plus Zosyn IV while admitted Santyl daily applied Cellulitis and wound appearance significantly improved ID service consulted, recommend to transition to 5-day course of ciprofloxacin plus doxycycline Hold mycophenolate while on antibiotic course, resume after completion of antibiotic course Follow-up with wound care center or medical administrator Dr. Mar within 1 week Continue aspirin, rosuvastatin Monitor peripheral arterial disease with surveillance arterial imaging Establish with vascular surgery as an outpatient Status post kidney transplant s/p IV belatacept monthly, last hold mycophenolate, confirmed with transplant nurse coordinator On -Call They ask to be kept updated on his status and when he is getting d/c. You can tiger text them under [facility] TT and search transplant nurse coordinate on- call 12/09 Discussed with [facility] complaints coordinator De Advises to hold mycophenolate until antibiotic course is finished Uncontrolled T2DM, insulin dependent neuropathy and retinopathy consult glycemic pharmacy pt has insulin pump in place he is out of pump supples and dexcom CGM supplies, he will need this upon discharge consult medical educator Rohan/brianna per protocol CAD, hx of stents HTN HLD continue asa, statin MATT cpap at HS plan of care discussed with patient in detail and at length all questions answered he is understanding, agreeable, comfortable with the plan of care Discharge Exam General- oriented x 3, not in distress, speaks in sentences with no effort or accessory muscle use Eyes- anicteric Neck- no JVD Lungs- clear breath sounds bilaterally, no rales/wheezes Heart- normal rate, regular rhythm; no murmurs Abdomen- normal bowel sounds, nondistended, soft, nontender Extremities- no pretibial edema, no calf tenderness Left foot, 2nd-5th digits: No edema, discoloration improving, no bleeding or discharge Neuro- alert, oriented x 3; no gross focal neurologic deficits Skin- warm & dry Updated Medication List Medication Instructions Recorded Confirmed Type aspirin 81 mg tablet,delayed 81 mg PO QAM 09/11/19 12/08/23 History release (Alejo Low Dose Aspirin) epinephrine 0.3 mg/0.3 mL 0.3 mg subcut UD PRN Anaphylaxis 09/11/19 12/08/23 History injection, auto-injector (EpiPen) insulin glargine 100 unit/mL (3 48 unit subcut HS 09/11/19 12/08/23 History mL) subcutaneous pen (Basaglar KwikPen U-100 Insulin) insulin lispro 100 unit/mL 0 - 120 unit subcut AC 09/11/19 12/08/23 History subcutaneous pen (Humalog KwikPen (U-100) Insulin) rosuvastatin 20 mg tablet (Crestor) 20 mg PO QAM 09/11/19 12/08/23 History tamsulosin 0.4 mg capsule (Flomax) 0.4 mg PO HS 09/11/19 12/08/23 History belatacept 250 mg intravenous 250 mg IV MONTHLY ##0 05/30/20 12/08/23 History solution acetaminophen 325 mg tablet 650 mg PO QID PRN Fever 11/19/21 12/08/23 History (Tylenol) polyethylene glycol 3350 17 gram 17 g PO DAILY PRN constipation #30 12/26/21 12/08/23 Rx oral powder packet (Miralax) ea mycophenolate sodium 180 mg 360 mg (2 x 180 mg) PO BID #120 04/21/22 12/08/23 Rx tablet,delayed release tabs folic acid 1 mg tablet 1 mg PO DAILY 12/08/23 12/08/23 History pregabalin 225 mg capsule 225 mg PO QPM 12/08/23 12/08/23 History ciprofloxacin HCl 500 mg tablet 500 mg PO BID 5 days #10 tabs 12/12/23 Rx collagenase clostridium histo. 250 1 applic EXT DAILY 7 days #90 grams 12/12/23 Rx unit/gram topical ointment (Santyl) doxycycline hyclate 100 mg capsule 100 mg PO BID 5 days #10 caps 12/12/23 Rx Hospital Stay Data Consultations 12/08/23 13:28 ED Decision to Admit Stat 12/08/23 13:33 Consult Orthopedic Surgery Routine 12/09/23 12:01 Consult Vascular Surgery Routine 12/10/23 09:03 Consult Infectious Diseases Routine Diagnostic Imagining Performed Laboratory Results WBC 5.20 K/ul (4.8-10.8) 12/09/23 06:35 RBC 4.50 M/uL (4.70-6.10) L 12/09/23 06:35 Hgb 13.0 g/dl (14.0-18.0) L 12/09/23 06:35 Hct 38.8 % (42.0-52.0) L 12/09/23 06:35 MCV 86.2 fL (80.0-100.0) 12/09/23 06:35 MCH 28.9 pg (25.0-34.0) 12/09/23 06:35 MCHC 33.5 g/dL (32.0-36.0) 12/09/23 06:35 RDW Std Deviation 39.8 fL (36.4-46.3) 12/09/23 06:35 RDW Coeff of Dandre 12.7 % (11.5-14.5) 12/09/23 06:35 Plt Count 338 K/uL (130-400) 12/09/23 06:35 MPV 9.5 fL (9.4-12.4) 12/09/23 06:35 Immature Gran % (Auto) 6.6 % 12/08/23 10:33 Neut % (Auto) 55.5 % 12/08/23 10:33 Lymph % (Auto) 26.3 % 12/08/23 10:33 Broome % (Auto) 9.2 % 12/08/23 10:33 Eos % (Auto) 2.1 % 12/08/23 10:33 Baso % (Auto) 0.3 % 12/08/23 10:33 Neut # (Auto) 3.43 K/uL (1.40-6.50) 12/08/23 10:33 Lymph # (Auto) 1.63 K/uL (1.20-3.40) 12/08/23 10:33 Broome # (Auto) 0.57 K/uL (0.11-0.59) 12/08/23 10:33 Eos # (Auto) 0.13 K/uL (0.00-0.50) 12/08/23 10:33 Baso # (Auto) 0.02 K/uL (0.00-0.20) 12/08/23 10:33 Immature Gran # (Auto) 0.41 K/uL (0.01-0.20) H 12/08/23 10:33 Neutrophils % (Manual) 48 % 12/09/23 06:35 Lymphocytes % (Manual) 43 % 12/09/23 06:35 Monocytes % (Manual) 6 % 12/09/23 06:35 Eosinophils % (Manual) 3 % 12/09/23 06:35 Neutrophils # (Manual) 2.50 K/uL (1.40-6.50) 12/09/23 06:35 Total Absolute Neuts 2.50 K/uL (1.4-6.5) 12/09/23 06:35 Lymphocytes # (Manual) 2.24 K/uL (1.2-3.4) 12/09/23 06:35 Total Abs Lymphocytes 2.24 K/uL (1.2-3.4) 12/09/23 06:35 Monocytes # (Manual) 0.31 K/uL (0.11-0.59) 12/09/23 06:35 Eosinophils # (Manual) 0.16 K/uL (0-0.50) 12/09/23 06:35 RBC Morphology Unremarkable 12/08/23 10:33 ESR 58 mm/hr (0-20) H 12/08/23 10:33 Sodium 138 mmol/L (136-145) 12/09/23 06:35 Potassium 4.9 mmol/L (3.5-5.1) 12/09/23 06:35 Chloride 106 mmol/L (98-107) 12/09/23 06:35 Carbon Dioxide 30 mmol/L (21-32) 12/09/23 06:35 Anion Gap 2 (3-11) L 12/09/23 06:35 BUN 16 mg/dl (6-23) 12/09/23 06:35 Creatinine 1.39 mg/dl (0.6-1.4) 12/12/23 07:56 Est Cr Clr Drug Dosing 79.8 ml/min 12/12/23 07:56 Est GFR ( Amer) 64.3 ml/min 12/12/23 07:56 Est GFR (Non-Af Amer) 55.5 ml/min 12/12/23 07:56 BUN/Creatinine Ratio 13.0 (10-20) 12/09/23 06:35 Glucose 212 mg/dl (70-99(Fasting)) H 12/09/23 06:35 POC Glucose 137 mg/dl (70-99) H 12/12/23 16:34 Estimat Average Glucose 203 mg/dl 12/10/23 08:07 Hemoglobin A1c 8.7 % (4.5-5.6) H 12/10/23 08:07 Calcium 9.4 mg/dl (8.6-10.3) 12/09/23 06:35 Magnesium 1.9 mg/dl (1.7-2.4) 12/09/23 06:35 Total Bilirubin 0.4 mg/dl (0.2-1.0) 12/09/23 06:35 AST 14 U/L (13-39) 12/09/23 06:35 ALT 19 U/L (7-52) 12/09/23 06:35 Alkaline Phosphatase 58 U/L (34-104) 12/09/23 06:35 C-Reactive Protein 1.46 mg/dl (0-0.5) H 12/08/23 10:33 Total Protein 6.3 gm/dl (6.0-8.3) 12/09/23 06:35 Albumin 3.6 gm/dl (3.4-5.0) 12/09/23 06:35 Globulin 2.7 gm/dl (2.5-4.0) 12/09/23 06:35 Albumin/Globulin Ratio 1.3 (0.9-2) 12/09/23 06:35 Random Vancomycin 19.1 mcg/ml (10-20) 12/12/23 07:56 Impressions Foot X-Ray 12/08/23 11:27 XR foot LT 2V HISTORY: 57 years-old Male foot wound chronic soft tissue wound of the left foot. Clinical concern for osteomyelitis COMPARISON: Ankle radiographs 06/18/2015 TECHNIQUE: 2 views of the left foot FINDINGS: Arterial calcifications. Demineralized appearance of the bones. Mild to moderate multifocal osteoarthritis. Increased sclerosis of the first proximal phalanx may represent a healed fracture deformity. No acute fracture, dislocation or osseous erosion. Diffuse soft tissue prominence. IMPRESSION: No acute osseous abnormality. ACT 112: Negative or not required by law. The above report was generated using voice recognition software. It may contain grammatical, syntax or spelling errors. Electronically signed by: Martín Ramos M.D. 12/08/2023 12:38 PM Duplex Scan Lower Extremity Artery 12/08/23 14:22 ULTRASOUND RIGHT LOWER EXTREMITY ARTERIAL; ANKLE BRACHIAL INDICES CLINICAL HISTORY: Left foot wound. Peripheral vascular disease. COMPARISON STUDY: No priors. TECHNIQUE: Real-time poe scale and color Doppler sonography of the arteries of the right and left lower extremity is performed from the inguinal crease to the foot. Ankle brachial indices were attempted. FINDINGS: Ankle brachial indices: Right brachial pressure is measured at 176. The dorsalis pedis and posterior tibial arteries were noncompressible bilaterally. Right lower extremity: Atherosclerotic plaque and irregularity is seen throughout the arteries of the right lower extremity. There are triphasic arterial waveforms in the common femoral artery with velocities measuring up to 114 cm/s. The profunda femoris artery is patent with velocities measuring up to 78 cm/s. There are triphasic arterial waveforms throughout the superficial femoral and popliteal arteries. Velocities in the superficial femoral artery measure up to 107 cm/s, and velocities in the popliteal artery measure up to 60 cm/s. There is two-vessel runoff to the foot. The anterior tibial and posterior tibial arteries are patent with velocities measuring up to 112 cm/s. There is flow shown within the proximal peroneal artery with velocities measuring up to 90 cm/s. The [id number] portion of the vessel were not visualized. This may be due to heavy calcification or occlusion. The dorsalis pedis artery is patent with velocities measuring up to 131 cm/s. Left lower extremity: Atherosclerotic plaque and irregularity is seen throughout the arteries of the left lower extremity. There are triphasic waveforms in the common femoral artery with velocities measuring up to 124 cm/s. The profunda femoris artery is patent with velocities measuring up to 83 cm/second. There are triphasic waveforms throughout the superficial femoral and popliteal arteries. Velocities in the superficial femoral artery measures up to 131 cm/s, and velocities in the popliteal artery measure up to 111 cm/s. There are monophasic to biphasic waveforms in the calf arteries with three-vessel runoff to the foot. Velocities in the calf arteries measure up to 138 cm/s. The dorsalis pedis artery is patent with velocities measuring up to 155 cm/s. IMPRESSION: 1. Advanced atherosclerotic plaque is seen throughout the arteries of the right and left lower extremity. Ankle brachial indices could not be evaluated as the ankle vessels could not be compressed. 2. There is at least two-vessel runoff to the right foot. The [id number] peroneal artery was not visualized, and this may be due to heavy atherosclerotic calcification versus occlusion. 3. There is no sonographic evidence of high-grade stenosis or focal vessel cut off throughout the arteries of the left lower extremity. Dictated: 12/09/2023 7:41 AM Transcribed: 12/09/2023 7:54 AM Ruel [id number] [email or web address] Electronically signed by: Mendoza Sandoval M.D. 12/09/2023 7:59 AM Foot MRI 12/08/23 14:22 MRI OF THE LEFT FOREFOOT COMBO CLINICAL HISTORY: Infection. Clinical concern for osteomyelitis. Toe wounds. COMPARISON STUDY: Radiographs of the left foot dated 12/08/2023. TECHNIQUE: MRI of the left forefoot is performed utilizing various T1 and T2-weighted sequences in the axial, sagittal, and coronal planes. Contrast- enhanced sequences are acquired following the IV administration of 11.5 mL of Gadavist. FINDINGS: There is no MRI evidence of acute fracture. There is marrow edema identified within the second through fifth distal phalanges. There is also mild marrow edema within the third middle phalanx. There is no corresponding drop in marrow signal in the T1-weighted sequences and no destructive bony change is seen. No additional foci of marrow edema are seen throughout the forefoot. There is soft tissue edema suggested in the toes. No fluid collection is identified. The imaged portions of the flexor and extensor tendons are intact. Visualized portions of the plantar fascia are maintained. The Lisfranc ligament is preserved. There is an 8 mm pocket of fluid arising from the dermal surface on the plantar aspect of the second toe at the level of the distal interphalangeal joint. This may represent a blister. IMPRESSION: 1. There is marrow edema seen distally within the second through fifth toes as above. There is no corresponding drop in signal on the T1-weighted sequences, no destructive bony change is seen. This likely represents osteitis of these bones. There is no clear MRI evidence of osteomyelitis. 2. Soft tissue edema throughout the toes likely represents cellulitis. 3. No organized fluid collection is seen to suggest abscess. 4. Possible blister along the plantar aspect of the second toe. Correlate with direct visualization. Dictated: 12/08/2023 7:14 PM Transcribed: 12/08/2023 7:24 PM Ruel [id number] [email or web address] Pending Results Patient Have Any Pending Studies at Discharge: No Discharge Instructions Given to Patient (Per Discharging Provider) PLEASE REFER TO YOUR NEW MEDICATION LIST AND FOLLOW INSTRUCTIONS CAREFULLY. YOUR NEW MEDICATIONS INCLUDE: Ciprofloxacin, doxycycline-antibiotic for cellulitis and wound infection of toes Santyl-to be applied to the affected areas of the toes Please hold mycophenolate and resume once antibiotic course is finished, which is after 5 days. Please take a probiotic daily for at least 1 month. Stay well-hydrated. PLEASE CALL YOUR PRIMARY CARE PHYSICIAN OR RETURN TO THE ER IF WITH WORSENING OF SYMPTOMS, INCLUDING Fevers or chills, nausea or vomiting, weakness, Worsening redness, discoloration, swelling, pain, bleeding from the affected toes/feet, etc. FOLLOW UP WITH PRIMARY CARE PHYSICIAN OUTLINED ABOVE. Follow-up with [facility] wound care within 1 week. Please call their office to set up an appointment. [address], [place] [address] Total Time Total Time Spent Total Time Spent (In Minutes): >30 minutes
== END 2023-12-12 19:17 | disposition home or self-care (01) | DRG 638 ==
LOC: ED 09:11 → 3N 13:33 → SUATTDRO 13:33 → 3N 18:37

== ENCOUNTER 2025-08-28 22:29 | Inpatient (IN) ==
--- NOTE | 2025-08-28 22:57 | Emergency Department Note ---
History of Present Illness General Chief complaint: Heart Alert Stated complaint: ABD PAIN, LETHARGIC, CHILLS, VOMITING Time Seen by Provider: 08/28/25 22:37 History of Present Illness Maximum Pain Intensity: 8 This is a 59-year-old male presenting to the emergency department for evaluation of nausea, vomiting, diarrhea, abdominal pain, and pain in his back. Symptoms began 6 days ago on 08/22/2025, and were primarily gastric in nature. Patient states that he has not been able to eat or drink much the past several days, but states that he is tolerating his medications well. He has a past medical history of diabetes with renal transplant. He has not had fevers or chills. He does not feel distinctly short of breath but does have significant pain in between his shoulder blades that is making it difficult for him to sleep. He has not taken anything [id number] for symptoms. He rates his overall pain an 8/10. Home Medications Medication Instructions Recorded Confirmed Type aspirin 81 mg tablet,delayed 81 mg PO QAM 09/11/19 08/28/25 History release (Alejo Low Dose Aspirin) epinephrine 0.3 mg/0.3 mL 0.3 mg subcut DIRECTED PRN 09/11/19 08/28/25 History injection, auto-injector (EpiPen) Anaphylaxis insulin lispro 100 unit/mL 15 unit subcut AC PRN PUMP FAILURE 09/11/19 08/28/25 History subcutaneous pen (Humalog KwikPen (U-100) Insulin) rosuvastatin 20 mg tablet (Crestor) 20 mg PO QAM 09/11/19 08/28/25 History tamsulosin 0.4 mg capsule (Flomax) 0.4 mg PO HS 09/11/19 08/28/25 History mycophenolate sodium 180 mg 360 mg (2 x 180 mg) PO BID #120 04/21/22 08/28/25 Rx tablet,delayed release tabs pregabalin 225 mg capsule 225 mg PO QPM 12/08/23 08/28/25 History diltiazem HCl 240 mg 240 mg PO DAILY 06/12/25 08/28/25 History capsule,extended release 24 hr Lactobacillus acidophilus 10 10,000 mmu cells PO DAILY 08/28/25 08/28/25 History billion cell capsule (Probiotic) glucagon 1 mg/0.2 mL subcutaneous 1 mg subcut DIRECTED PRN 08/28/25 08/28/25 History auto-injector (Gvoke HypoPen UNRESPONSIVE W/HYPOGLYCEMIA 2-Pack) insulin glargine 100 unit/mL (3 0 unit subcut DIRECTED 08/28/25 08/28/25 History mL) subcutaneous pen (Lantus Solostar U-100 Insulin) insulin lispro 100 unit/mL 1 sliding scale dose continuous 08/28/25 08/28/25 History subcutaneous solution subcutaneous infusion USEASDIRECTD insulin lispro 100 unit/mL 1 sliding scale dose continuous 08/28/25 08/28/25 History subcutaneous solution (Humalog subcutaneous infusion USEASDIRECTD U-100 Insulin) sildenafil 50 mg tablet 50 mg PO DAILY PRN Sexual Activity 08/28/25 08/28/25 History tacrolimus 1 mg capsule, 0.5 mg PO QPM 08/28/25 08/28/25 History immediate-release tacrolimus 1 mg capsule, 1 mg PO QAM 08/28/25 08/28/25 History immediate-release Allergies Allergy/AdvReac Type Severity Reaction Status Date / Time bee venom protein (honey bee) Allergy Severe SHORTNESS Verified 08/28/25 22:52 OF BREATH ondansetron Allergy Intermediate OVER ALL Verified 08/28/25 22:52 SWELLING Past Med/Surg History Problem List (Updated 08/29/25 @ 04:06 by Raymon Moya PA-C) ST elevation (STEMI) myocardial infarction (Acute) Bradycardia Hypoxic respiratory failure STEMI (ST elevation myocardial infarction) Cellulitis of left foot Dry gangrene Chronic ulcer of left foot with fat layer exposed Wound of left foot Gram-positive bacteremia Chronic osteomyelitis involving ankle and foot Intractable nausea and vomiting (Acute 02/22/14) Dilated pupil (Acute 02/22/14) Peritoneal dialysis status (Chronic) Autonomic neuropathy (Chronic) Abscess (Acute) Altered mental status (Acute) Cellulitis of back (Acute) End stage renal disease (Acute) Hyperphosphatemia (Acute) Hx of kidney transplant September 2017 Pre[facility] Albarran Finger infection (Acute) Diabetes mellitus with hyperglycemia (Acute) Hypertension Hyperlipidemia Diabetic foot infection (Acute) Ulcer of right heel and midfoot, limited to breakdown of skin Osteomyelitis Immunocompromised (Acute) Osteomyelitis (Acute) Renal transplant recipient (Acute) Medical History Failure of outpatient treatment Infected surgical wound Ulcer of right foot due to type 2 diabetes mellitus Fever History of peritoneal dialysis Gastroparesis Diabetes Surgical History Status post right foot surgery Hx of kidney transplant September 2017 Pre[facility] Albarran Family History Father Colorectal cancer Mother Diabetes Social History Smoking Status: Heavy tobacco smoker Tobacco Type: Smokeless Tobacco (Dip or Chew) Second Hand Exposure: No; Do You Dip or Chew Tobacco: Yes; Hx Alcohol Use: Yes Alcohol type: beer Hx Substance Use: No Preferred Language: Hebrew Communication Ability: Effective Beef Pluck Trimmer Required: No Beliefs That Will Affect Care: None marital status: Current Living Situation: Spouse Other Information That Helps Us Care for You: No Feels Safe at Home: Yes Safety Concerns: Feels Safe At This Time Assistive Devices: Cane, Denture - Upper, Denture - Lower and Glasses Review of Systems A total of 10 systems reviewed and were otherwise negative Physical Exam Vital Signs Vital Signs - 24 hr 08/28/25 22:31 08/28/25 22:48 08/28/25 23:05 Temperature 36.6 C Temperature Source Temporal Artery Scan Pulse Rate 46 L 49 L 61 Respiratory Rate 20 29 H Respiratory Effort / Characteristics Respiratory Depth Respiratory Pattern Blood Pressure 96/60 L Blood Pressure Mean 72 Pulse Oximetry 97 96 Oxygen Delivery Method Room Air Fraction of Inspired Oxygen 45 Sepsis Recent Fever Within 48 Hours No Sepsis New/Unexplained Change in Mental Status N/A Sepsis Action Taken by Nursing No Action Required 08/28/25 23:30 Temperature Temperature Source Pulse Rate 58 L Respiratory Rate 30 H Respiratory Effort / Characteristics Non-Labored Spontaneous Respiratory Depth Normal Respiratory Pattern Tachypnea Blood Pressure Blood Pressure Mean Pulse Oximetry 100 Oxygen Delivery Method Fraction of Inspired Oxygen 60 Sepsis Recent Fever Within 48 Hours Sepsis New/Unexplained Change in Mental Status Sepsis Action Taken by Nursing VITALS: Vitals are noted on the nurse's note and reviewed by myself. Vital signs stable. GENERAL: White male who appears older than stated age. He appears uncomfortable on presentation. HEAD: Normocephalic atraumatic. NECK: Supple without nuchal rigidity. No lymphadenopathy. No thyromegaly. Cervical spine is nontender. HEART: Regular rate and rhythm without murmurs gallops or rubs. LUNGS: Clear to auscultation bilaterally without wheezes, rales or rhonchi. No retractions or accessory muscle use. ABDOMEN: Positive normal bowel sounds x 4. Soft, nontender, without masses or organomegaly. MUSCULOSKELETAL: No muscle atrophy, erythema, or edema noted. Full range of motion in all extremities. NEURO: Patient was alert and oriented to person place and time. CN II through XII grossly intact. No focal neurological deficits. GCS 15. Course Administered Medications Discontinued Medications Aspirin (Aspirin Chew 324 Mg) 324 mg PO NOW STA Stop: 08/28/25 22:49 Last Admin: 08/28/25 23:11 Dose: 324 mg Documented By: autumn Atropine Sulfate (Atropine Sulfate 0.1 Mg/Ml 10ml Syr) Confirm Administered Dose 1 mg IV .STK-MED ONE Stop: 08/28/25 23:30 Last Admin: 08/29/25 01:02 Dose: Not Given Documented By: COLLEEN Dopamine HCl/Dextrose (Dopamine 400mg / 250ml D5w (Lithography Contact Worker Use Only)) Confirm Administered Dose 400 mg IV .STK-MED ONE Stop: 08/28/25 23:25 Last Admin: 08/29/25 01:01 Dose: 5 mcg.per.kg Documented By: COLLEEN Epinephrine HCl (Epinephrine 1.5" Ndl 0.1 Mg/Ml Syr) Confirm Administered Dose 1 mg IV .STK-MED ONE Stop: 08/28/25 23:45 Last Admin: 08/29/25 01:03 Dose: Not Given Documented By: COLLEEN Fentanyl Citrate (Fentanyl Citrate Pf 100 Mcg/2 Ml Vial) Confirm Administered Dose 100 mcg .ROUTE .STK-MED ONE Stop: 08/28/25 23:11 Last Increment: 08/29/25 01:01 Dose: 25 mcg Documented By: COLLEEN Heparin Sodium (Porcine) (Heparin (Porcine) 1000 Unit/Ml 10 Ml (Lithography Contact Worker Use Only)) Confirm Administered Dose 10,000 units .ROUTE .STK-MED ONE Stop: 08/28/25 23:10 Last Admin: 08/29/25 01:00 Dose: 12,000 units Documented By: COLLEEN Heparin Sodium (Porcine) (Heparin (Porcine) 1000 Unit/Ml 10 Ml (Lithography Contact Worker Use Only)) Confirm Administered Dose 10,000 units .ROUTE .STK-MED ONE Stop: 08/28/25 23:58 Last Admin: 08/29/25 01:03 Dose: Not Given Documented By: COLLEEN Heparin Sodium/Sodium Chloride (Heparin In Nss Infusion 1000 Unit/500 Ml (2 U/Ml) Bag) Confirm Administered Dose 3,000 units IV .STK-MED ONE Stop: 08/28/25 23:11 Last Admin: 08/28/25 23:56 Dose: 3,000 units Documented By: COLLEEN Sodium Chloride (Nss) 1,000 mls @ 999 mls/hr IV .Q1H1M ONE Stop: 08/28/25 23:42 Last Infusion: 08/29/25 02:26 Dose: Infused Documented By: Admin: 08/28/25 23:56 Dose: 999 mls/hr Documented By: COLLEEN Acetaminophen (Ofirmev) 1,000 mg in 100 mls @ 400 mls/hr IV NOW STA Stop: 08/28/25 22:57 Last Admin: 08/29/25 02:25 Dose: Not Given Documented By: LUCAS Promethazine HCl (Phenergan) 12.5 mg in 50.5 mls @ 202 mls/hr IV NOW STA Stop: 08/28/25 22:59 Last Admin: 08/29/25 02:25 Dose: Not Given Documented By: LUCAS Magnesium Sulfate/Dextrose (Magnesium Sulfate / D5w) 1 gm in 100 mls @ 50 mls/hr IV Q2H JOSE Stop: 08/29/25 04:44 Last Admin: 08/29/25 03:48 Dose: 50 mls/hr Documented By: TMJonathan Infusion: 08/29/25 03:48 Dose: Infused Documented By: Admin: 08/29/25 02:03 Dose: 50 mls/hr Documented By: LUCAS Ioversol (Optiray 350) Confirm Administered Dose 1 ml .ROUTE .STK-MED ONE Stop: 08/28/25 23:11 Last Admin: 08/29/25 02:25 Dose: Not Given Documented By: LUCAS Midazolam HCl (Midazolam Hcl 1 Mg/Ml 2ml Vial) Confirm Administered Dose 2 mg .ROUTE .STK-MED ONE Stop: 08/28/25 23:10 Last Increment: 08/29/25 01:00 Dose: 1 mg Documented By: COLLEEN Miscellaneous (Patient's Height &/Or Weight Needed) 1 each N/A Q2H STA Stop: 08/29/25 01:30 Last Admin: 08/29/25 02:08 Dose: 1 each Documented By: LUCAS Nicardipine HCl (Nicardipine 2,000 Mcg/20 Ml Syr) Confirm Administered Dose 2,000 mcg .ROUTE .STK-MED ONE Stop: 08/28/25 23:11 Last Admin: 08/28/25 23:57 Dose: 2,000 mcg Documented By: REGIS Nitroglycerin (Nitroglycerin 2% Ointment 30gm Tube) 1 inch EXT NOW ONE Stop: 08/28/25 22:49 Last Admin: 08/28/25 23:56 Dose: Not Given Documented By: COLLEEN Nitroglycerin/Dextrose (Nitroglycerin/D5w 100mcg/Ml 20ml Syr) Confirm Administered Dose 2,000 mcg .ROUTE .STK-MED ONE Stop: 08/28/25 23:11 Last Admin: 08/28/25 23:59 Dose: 2,000 mcg Documented By: REGIS Ondansetron HCl (Ondansetron Inj 2 Mg/Ml 2 Ml Vial) 4 mg IV NOW STA Stop: 08/28/25 22:44 Last Admin: 08/29/25 02:25 Dose: Not Given Documented By: LUCAS Prasugrel (Prasugrel Tab 10 Mg Tab) Confirm Administered Dose 60 mg PO .STK-MED ONE Stop: 08/29/25 00:49 Last Admin: 08/29/25 01:26 Dose: 60 mg Documented By: COLLEEN Critical Care Time I have personally spent greater than 30 minutes of critical care time in the direct management of this patient. This includes bedside care, interpretation of diagnostic studies, and testing, discussion with consultants, patient, and family members, and other required patient management activities. This 30 minutes is in excess of all separately billable procedures. Medical Decision Making Differential Diagnosis Differential diagnosis includes, but is not limited to: Myocardial infarction, dysrhythmia, pericarditis, pneumothorax, aortic aneurysm/dissection, DVT/PE, anxiety, GERD, PUD, electrolyte imbalance, thyroid disorder, pneumonia, bronchitis, pancreatitis, and others Laboratory Data 08/29/25 03:42 08/29/25 03:42 Lab Results 08/28/25 08/28/25 08/28/25 Range/Units 23:04 23:06 23:08 WBC 14.86 H (4.8-10.8) K/ul RBC 4.03 L (4.70-6.10) M/uL Hgb 12.0 L (14.0-18.0) g/dL POC Hgb 12.6 L (14.0-18.0) g/dl Hct 35.4 L (42.0-52.0) % POC Hct 37 L (42-52) % MCV 87.8 (80.0-100.0) fL MCH 29.8 (25.0-34.0) pg MCHC 33.9 (32.0-36.0) g/dL RDW Std Deviation 41.8 (36.4-46.3) fL RDW Coeff of Dandre 13.0 (11.5-14.5) % Plt Count 211 (130-400) K/uL MPV 12.1 (9.4-12.4) fL Immature Gran % (Auto) 0.5 % Neut % (Auto) 82.4 % Lymph % (Auto) 7.5 % [place] % (Auto) 9.4 % Eos % (Auto) 0.1 % Baso % (Auto) 0.1 % Neut # (Auto) 12.26 H (1.40-6.50) K/uL Lymph # (Auto) 1.11 L (1.20-3.40) K/uL [place] # (Auto) 1.39 H (0.11-0.59) K/uL Eos # (Auto) 0.01 (0.00-0.50) K/uL Baso # (Auto) 0.02 (0.00-0.20) K/uL Immature Gran # (Auto) 0.07 (0.01-0.20) K/uL Activ Coag Time Kaolin (94-140) SECONDS POC Sodium 125 L (135-144) mmol/L Sodium 124 L (136-145) mmol/L POC Potassium 4.0 (3.3-5.0) mmol/L Potassium 3.9 (3.5-5.1) mmol/L POC Chloride 90 L (101-112) mmol/L Chloride 91 L (98-107) mmol/L Carbon Dioxide 21 (21-32) mmol/L POC Total CO2 20 L (24-31) mmol/L Anion Gap 12 H (3-11) POC Anion Gap 20.0 (16-25) mmol/L POC BUN 29 H (7-18) mg/dl BUN 32 H (6-23) mg/dl Creatinine 1.46 H (0.6-1.4) mg/dl POC Creatinine 1.6 H (0.6-1.3) mg/dl Est Cr Clr Drug Dosing Not Reportable eGFR 54.71 BUN/Creatinine Ratio 21.9 H (10-20) Glucose 357 H* (70-99(Fasting)) mg/dl POC Glucose (other) 334 H (70-99) mg/dl Osmolality 282 (280-300) mOsm/kg Calcium 9.0 (8.6-10.3) mg/dl POC Ioniz Calcium Karissa 1.19 (1.12-1.32) mmol/l Magnesium 1.5 L (1.7-2.4) mg/dl Total Bilirubin 1.3 H (0.2-1.0) mg/dl AST 27 (13-39) U/L ALT 23 (7-52) U/L Alkaline Phosphatase 61 (34-104) U/L Troponin I High Sens 72828.6 H* (0-20) pg/ml B-Natriuretic Peptide 2699 H (0-100) pg/ml Total Protein 6.7 (6.0-8.3) gm/dl Albumin 3.1 L (3.4-5.0) gm/dl Globulin 3.6 (2.5-4.0) gm/dl Albumin/Globulin Ratio 0.9 (0.9-2) Lipase 6 L (11-82) U/L TSH 0.979 (0.300-4.500) uIu/ml Hepatitis C Ab Screen (Negative) 08/28/25 08/29/25 Range/Units 23:56 00:00 WBC (4.8-10.8) K/ul RBC (4.70-6.10) M/uL Hgb (14.0-18.0) g/dL POC Hgb (14.0-18.0) g/dl Hct (42.0-52.0) % POC Hct (42-52) % MCV (80.0-100.0) fL MCH (25.0-34.0) pg MCHC (32.0-36.0) g/dL RDW Std Deviation (36.4-46.3) fL RDW Coeff of Dandre (11.5-14.5) % Plt Count (130-400) K/uL MPV (9.4-12.4) fL Immature Gran % (Auto) % Neut % (Auto) % Lymph % (Auto) % [place] % (Auto) % Eos % (Auto) % Baso % (Auto) % Neut # (Auto) (1.40-6.50) K/uL Lymph # (Auto) (1.20-3.40) K/uL [place] # (Auto) (0.11-0.59) K/uL Eos # (Auto) (0.00-0.50) K/uL Baso # (Auto) (0.00-0.20) K/uL Immature Gran # (Auto) (0.01-0.20) K/uL Activ Coag Time Kaolin 239 H (94-140) SECONDS POC Sodium (135-144) mmol/L Sodium (136-145) mmol/L POC Potassium (3.3-5.0) mmol/L Potassium (3.5-5.1) mmol/L POC Chloride (101-112) mmol/L Chloride (98-107) mmol/L Carbon Dioxide (21-32) mmol/L POC Total CO2 (24-31) mmol/L Anion Gap (3-11) POC Anion Gap (16-25) mmol/L POC BUN (7-18) mg/dl BUN (6-23) mg/dl Creatinine (0.6-1.4) mg/dl POC Creatinine (0.6-1.3) mg/dl Est Cr Clr Drug Dosing eGFR BUN/Creatinine Ratio (10-20) Glucose (70-99(Fasting)) mg/dl POC Glucose (other) (70-99) mg/dl Osmolality (280-300) mOsm/kg Calcium (8.6-10.3) mg/dl POC Ioniz Calcium [place] (1.12-1.32) mmol/l Magnesium (1.7-2.4) mg/dl Total Bilirubin (0.2-1.0) mg/dl AST (13-39) U/L ALT (7-52) U/L Alkaline Phosphatase (34-104) U/L Troponin I High Sens (0-20) pg/ml B-Natriuretic Peptide (0-100) pg/ml Total Protein (6.0-8.3) gm/dl Albumin (3.4-5.0) gm/dl Globulin (2.5-4.0) gm/dl Albumin/Globulin Ratio (0.9-2) Lipase (11-82) U/L TSH (0.300-4.500) uIu/ml Hepatitis C Ab Screen Negative (Negative) ECG Data Attestation: I personally reviewed and interpreted this ECG as follows: Indication: + vomiting Additional Comments: Sinus rhythm with incomplete heart block at [address] elevation noted in leads II, III, and aVF. Question early Q waves. EKG consistent with acute ST elevation [place] When compared to previous from June 12, 2025, ST changes consistent with [place] are noted. MDM Narrative Physical exam and history were performed. Nursing notes, EMR, and Medication List were personally reviewed. No social concerns were identified as barriers to patients care. History was provided by the Patient and at bedside. Patient appears to have several symptoms bringing him to the ER. His primary concern is for abdominal pain with nausea and vomiting. Additionally the patient is complaining of pain between his shoulder blades. He is borderline hypotensive and bradycardic here in the ER. IV access was established and labs were obtained. Initially based on the patient's complaints he was ordered several different medications including fluids, Tylenol, and antiemetics. CT scans were performed. Patient's EKG was performed and was immediately reviewed myself and is consistent with ST elevation [place]. Case was discussed with my attending and heart alert was initiated. With initiation of heart alert patient was given aspirin and Nitropaste. His blood pressure did improve. As the patient symptoms appear to be from his [place], CT scans were canceled. Patient family was kept up-to-date on his status. His blood work did return with a notably elevated troponin greater than 15,000. Escalation of care was considered, and certainly felt to be necessary. Patient was monitored very closely until cardiology, Dr. Shay, arrived at bedside who will take the patient to the cardiac catheterization suite. [facility] Please see their dictations for further patient course, plan, disposition. The chart was completed utilizing [employer] Speech Voice Recognition Software. Grammatical errors, random word insertions, pronoun errors, and incomplete sentences are an occasional consequence of this system due to software limitations, ambient noise, and hardware issues. Any formal questions or concerns about the content, text, or information contained within the body of this dictation should be directly addressed to the provider for clarification. Impression & Plan ST elevation (STEMI) myocardial infarction Discharge Plan Visit Data Chief Complaint: Heart Alert Stated Complaint: ABD PAIN, LETHARGIC, CHILLS, VOMITING ED Provider: Kylah Bolivar ED Midlevel Provider: Raymon Moya Discharge Problem: ST elevation (STEMI) myocardial infarction Patient Disposition: Admitted As Inpatient Condition: Serious Discharge Instructions Interventions: ED Discharge Assessment Last Done: 08/28/25 23:30
[2025-08-28] MEDS: ASPIRIN CHEW 324 MG PO STA (23:11)
[2025-08-28 23:38] LABS: Hematocrit (blood only) 35.4 % (42.0-52.0); Hemoglobin 12.0 g/dL (14.0-18.0); Immature Granulocytes # (auto) 0.07 K/uL (0.01-0.20); Immature Granulocytes % (auto) 0.5 %; Mean Corpuscular Hemoglobin 29.8 pg (25.0-34.0); Mean Corpuscular Volume 87.8 fL (80.0-100.0); Platelet Count 211 K/uL (130-400); RDW Standard Deviation 41.8 fL (36.4-46.3); Red Blood Count 4.03 M/uL (4.70-6.10); White Blood Count 14.86 K/ul (4.8-10.8)
[2025-08-28] MEDS: NITROGLYCERIN 2% OINTMENT 30GM TUBE EXT ONE (23:56)
[2025-08-28] MEDS: SODIUM CHLORIDE 0.9% 1,000 ML IV ONE (23:56)
[2025-08-28] MEDS: niCARdipine 2,000 MCG/20 ML SYR ONE (23:57)
[2025-08-28] MEDS: NITROGLYCERIN/D5W 100MCG/ML 20ML SYR ONE (23:59)
[2025-08-29 00:06] LABS: Alanine Aminotransferase 23 U/L (7-52); Albumin Globulin Ratio 0.9 (0.9-2); Albumin Level 3.1 gm/dl (3.4-5.0); Alkaline Phosphatase 61 U/L (34-104); Anion Gap 12 (3-11); Bilirubin,Total 1.3 mg/dl (0.2-1.0); Blood Urea Nitrogen 32 mg/dl (6-23); Calcium 9.0 mg/dl (8.6-10.3); Carbon Dioxide 21 mmol/L (21-32); Chloride 91 mmol/L (98-107); Globulin 3.6 gm/dl (2.5-4.0); Glucose 357 mg/dl (70-99(Fasting)); Lipase 6 U/L (11-82); Magnesium 1.5 mg/dl (1.7-2.4); Potassium 3.9 mmol/L (3.5-5.1); Sodium 124 mmol/L (136-145); Total Protein 6.7 gm/dl (6.0-8.3)
--- NOTE | 2025-08-29 00:14 | History & Physical Report ---
Date of Service August 29, 2025 Assessment & Plan (1) ST elevation (STEMI) myocardial infarction: Plan: Assessment and plan below following discussion of case with ED provider and reviewing patient history/pertinent normal/abnormal diagnostic test results. STEMI History CAD status post stent (2012) Multivessel CAD on today's diagnostic cardiac catheterization. Mid circumflexOM 2 stent patent with ISR and 90% stenosis at distal aspect of stent 30-40% proximal LAD 50-60% distal small LAD. 45% ostial D1 40% diffuse disease in right posterior AV branch prior to patent stent into right PLB Successful PCI of culprit RCA lesion with 3 drug-eluting stents. Complete heart block secondary to above status post transvenous pacemaker Acute CHF secondary to STEMI/CHB hx PAF, HTN, BP currently stable after hypotension admission hx PAD MATT on CPAP Hyponatremia secondary to CHF DM2 on insulin pump, patient hyperglycemic, suboptimal control as of recent hemoglobin A1c of 8.07 April 2025 ARF on CKD, history ESRD status post kidney transplant on chronic antirejection regimen (baseline creatinine 1.3) chronic anemia, hemoglobin slightly lower than baseline past tobacco abuse ICU monitoring Management of cardiac issues as per cardiology (Patient known to [facility]) Strict I/Os, daily weights, CHF education Hyponatremia workup, recheck serum sodium after 1 dose Lasix Pharmacy glycemic control consultation, update hemoglobin A1c DVT prophylaxis. Heparin subcu Full code Total critical care time was 40 minutes. Text document was generated using [employer] voice recognition software. It may contain grammatical or spelling errors. Kindly contact undersigned for clarification of any documentation item in question. History of Present Illness Chief Complaint: Chest pain, SOB Primary Care Provider: Melissa Castillo DO History obtained from patient and records. Medical history significant for CAD status post stent (2012), PAF, hypertension, hyperlipidemia, mild MR, PAD, MATT on CPAP, DM2 on insulin pump, ESRD status post kidney transplant on chronic antirejection regimen (baseline creatinine 1.3), chronic anemia (baseline hemoglobin 13), orthostatic hypotension/autonomic neuropathy as per records, BPH, past tobacco abuse. Last confinement December 2023 diabetic foot infection. Patient with achy chest pain going to the belly and back for almost a week. Could not take a deep breath. No cough symptoms. Patient unaware of fluid retention or weight gain. No trauma. Different from reflux. Compliant with home medications. Denies overt bleeding. Chronic watery diarrhea symptoms which patient attributes to antirejection medication. Patient consulted ER. Initial SBP 90s, heart rate [address] elevation noted on inferior leads on initial EKG. Heart alert called. Patient underwent emergent diagnostic cardiac catheterization. Multivessel CAD noted on cardiac catheterization. Successful PCI of RCA with 3 drug-eluting stents done. Transvenous pacemaker placed for complete heart block. Patient currently comfortable at the ICU at time of exam. 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 Allergies Allergy/AdvReac Type Severity Reaction Status Date / Time bee venom protein (honey bee) Allergy Severe SHORTNESS Verified 08/28/25 22:52 OF BREATH ondansetron Allergy Intermediate OVER ALL Verified 08/28/25 22:52 SWELLING Home Medications Medication Instructions Recorded Confirmed Type aspirin 81 mg tablet,delayed 81 mg PO QAM 09/11/19 08/28/25 History release (Alejo Low Dose Aspirin) epinephrine 0.3 mg/0.3 mL 0.3 mg subcut DIRECTED PRN 09/11/19 08/28/25 History injection, auto-injector (EpiPen) Anaphylaxis insulin lispro 100 unit/mL 15 unit subcut AC PRN PUMP FAILURE 09/11/19 08/28/25 History subcutaneous pen (Humalog KwikPen (U-100) Insulin) rosuvastatin 20 mg tablet (Crestor) 20 mg PO QAM 09/11/19 08/28/25 History tamsulosin 0.4 mg capsule (Flomax) 0.4 mg PO HS 09/11/19 08/28/25 History mycophenolate sodium 180 mg 360 mg (2 x 180 mg) PO BID #120 04/21/22 08/28/25 Rx tablet,delayed release tabs pregabalin 225 mg capsule 225 mg PO QPM 12/08/23 08/28/25 History diltiazem HCl 240 mg 240 mg PO DAILY 06/12/25 08/28/25 History capsule,extended release 24 hr Lactobacillus acidophilus 10 10,000 mmu cells PO DAILY 08/28/25 08/28/25 History billion cell capsule (Probiotic) glucagon 1 mg/0.2 mL subcutaneous 1 mg subcut DIRECTED PRN 08/28/25 08/28/25 History auto-injector (Gvoke HypoPen UNRESPONSIVE W/HYPOGLYCEMIA 2-Pack) insulin glargine 100 unit/mL (3 0 unit subcut DIRECTED 08/28/25 08/28/25 History mL) subcutaneous pen (Lantus Solostar U-100 Insulin) insulin lispro 100 unit/mL 1 sliding scale dose continuous 08/28/25 08/28/25 History subcutaneous solution subcutaneous infusion USEASDIRECTD insulin lispro 100 unit/mL 1 sliding scale dose continuous 08/28/25 08/28/25 History subcutaneous solution (Humalog subcutaneous infusion USEASDIRECTD U-100 Insulin) sildenafil 50 mg tablet 50 mg PO DAILY PRN Sexual Activity 08/28/25 08/28/25 History tacrolimus 1 mg capsule, 0.5 mg PO QPM 08/28/25 08/28/25 History immediate-release tacrolimus 1 mg capsule, 1 mg PO QAM 08/28/25 08/28/25 History immediate-release Past Med/Surg History Problem List (Updated 08/29/25 @ 04:06 by Raymon Moya PA-C) ST elevation (STEMI) myocardial infarction (Acute) Bradycardia Hypoxic respiratory failure STEMI (ST elevation myocardial infarction) Cellulitis of left foot Dry gangrene Chronic ulcer of left foot with fat layer exposed Wound of left foot Gram-positive bacteremia Chronic osteomyelitis involving ankle and foot Intractable nausea and vomiting (Acute 02/22/14) Dilated pupil (Acute 02/22/14) Peritoneal dialysis status (Chronic) Autonomic neuropathy (Chronic) Abscess (Acute) Altered mental status (Acute) Cellulitis of back (Acute) End stage renal disease (Acute) Hyperphosphatemia (Acute) Hx of kidney transplant September 2017 Prema Albarran Finger infection (Acute) Diabetes mellitus with hyperglycemia (Acute) Hypertension Hyperlipidemia Diabetic foot infection (Acute) Ulcer of right heel and midfoot, limited to breakdown of skin Osteomyelitis Immunocompromised (Acute) Osteomyelitis (Acute) Renal transplant recipient (Acute) Medical History Failure of outpatient treatment Infected surgical wound Ulcer of right foot due to type 2 diabetes mellitus Fever History of peritoneal dialysis Gastroparesis Diabetes Surgical History Status post right foot surgery Hx of kidney transplant September 2017 Prema Albarran Family History Father Colorectal cancer Mother Diabetes Social History Smoking Status: Heavy tobacco smoker Tobacco Type: Smokeless Tobacco (Dip or Chew) Second Hand Exposure: No; Do You Dip or Chew Tobacco: Yes; Hx Alcohol Use: Yes Alcohol type: beer Hx Substance Use: No Preferred Language: Persian Communication Ability: Effective Legal Aide Required: No Beliefs That Will Affect Care: None marital status: Current Living Situation: Spouse Feels Safe at Home: Yes Assistive Devices: Cane, Denture - Upper, Denture - Lower and Glasses Review of Systems Review of Systems: As per HPI, all other systems reviewed and negative Physical Exam Physical Exam: GENERAL: Comfortable, obese, pleasant, intermittent tachypnea, no respiratory distress SKIN: Pallor, warm HEENT: Pale palpebral conjunctivae, no ptosis, moist buccal mucosa, nasal can nula in place NECK : Supple, no tenderness CHEST : CTA, no tenderness HEART : Bradycardic, no obvious murmurs ABDOMEN: Some distention, nontender EXTREMITIES : No LE swelling, no LE tenderness, palpable pulses, no other conspicuous deformities noted NEUROLOGIC : Coherent, no facial asymmetry, no other gross focality Results & Data Results & Data Vital Signs (Past 12 Hours) Vital Signs Temp Pulse Resp BP Pulse Ox O2 Del Method 08/28/25 22:48 49 L 08/28/25 22:31 36.6 C 46 L 20 96/60 L 97 Room Air Laboratory Results Laboratory Results WBC 14.86 K/ul (4.8-10.8) H 08/28/25 23:04 RBC 4.03 M/uL (4.70-6.10) L 08/28/25 23:04 Hgb 12.0 g/dL (14.0-18.0) L 08/28/25 23:04 POC Hgb 12.6 g/dl (14.0-18.0) L 08/28/25 23:08 Hct 35.4 % (42.0-52.0) L 08/28/25 23:04 POC Hct 37 % (42-52) L 08/28/25 23:08 MCV 87.8 fL (80.0-100.0) 08/28/25 23:04 MCH 29.8 pg (25.0-34.0) 08/28/25 23:04 MCHC 33.9 g/dL (32.0-36.0) 08/28/25 23:04 RDW Std Deviation 41.8 fL (36.4-46.3) 08/28/25 23:04 RDW Coeff of Dandre 13.0 % (11.5-14.5) 08/28/25 23:04 Plt Count 211 K/uL (130-400) 08/28/25 23:04 MPV 12.1 fL (9.4-12.4) 08/28/25 23:04 Immature Gran % (Auto) 0.5 % 08/28/25 23:04 Neut % (Auto) 82.4 % 08/28/25 23:04 Lymph % (Auto) 7.5 % 08/28/25 23:04 Calloway % (Auto) 9.4 % 08/28/25 23:04 Eos % (Auto) 0.1 % 08/28/25 23:04 Baso % (Auto) 0.1 % 08/28/25 23:04 Neut # (Auto) 12.26 K/uL (1.40-6.50) H 08/28/25 23:04 Lymph # (Auto) 1.11 K/uL (1.20-3.40) L 08/28/25 23:04 Calloway # (Auto) 1.39 K/uL (0.11-0.59) H 08/28/25 23:04 Eos # (Auto) 0.01 K/uL (0.00-0.50) 08/28/25 23:04 Baso # (Auto) 0.02 K/uL (0.00-0.20) 08/28/25 23:04 Immature Gran # (Auto) 0.07 K/uL (0.01-0.20) 08/28/25 23:04 POC Sodium 125 mmol/L (135-144) L 08/28/25 23:08 Sodium 124 mmol/L (136-145) L 08/28/25 23:04 POC Potassium 4.0 mmol/L (3.3-5.0) 08/28/25 23:08 Potassium 3.9 mmol/L (3.5-5.1) 08/28/25 23:04 POC Chloride 90 mmol/L (101-112) L 08/28/25 23:08 Chloride 91 mmol/L (98-107) L 08/28/25 23:04 Carbon Dioxide 21 mmol/L (21-32) 08/28/25 23:04 POC Total CO2 20 mmol/L (24-31) L 08/28/25 23:08 Anion Gap 12 (3-11) H 08/28/25 23:04 POC Anion Gap 20.0 mmol/L (16-25) 08/28/25 23:08 POC BUN 29 mg/dl (7-18) H 08/28/25 23:08 BUN 32 mg/dl (6-23) H 08/28/25 23:04 Creatinine 1.46 mg/dl (0.6-1.4) H 08/28/25 23:04 POC Creatinine 1.6 mg/dl (0.6-1.3) H 08/28/25 23:08 Est Cr Clr Drug Dosing Not Reportable 08/28/25 23:04 eGFR 54.71 08/28/25 23:04 BUN/Creatinine Ratio 21.9 (10-20) H 08/28/25 23:04 Glucose 357 mg/dl (70-99(Fasting)) H* 08/28/25 23:04 POC Glucose (other) 334 mg/dl (70-99) H 08/28/25 23:08 Calcium 9.0 mg/dl (8.6-10.3) 08/28/25 23:04 POC Ioniz Calcium Karissa 1.19 mmol/l (1.12-1.32) 08/28/25 23:08 Magnesium 1.5 mg/dl (1.7-2.4) L 08/28/25 23:04 Total Bilirubin 1.3 mg/dl (0.2-1.0) H 08/28/25 23:04 AST 27 U/L (13-39) 08/28/25 23:04 ALT 23 U/L (7-52) 08/28/25 23:04 Alkaline Phosphatase 61 U/L (34-104) 08/28/25 23:04 Troponin I High Sens 18997.6 pg/ml (0-20) H* 08/28/25 23:04 B-Natriuretic Peptide 2699 pg/ml (0-100) H 08/28/25 23:04 Total Protein 6.7 gm/dl (6.0-8.3) 08/28/25 23:04 Albumin 3.1 gm/dl (3.4-5.0) L 08/28/25 23:04 Globulin 3.6 gm/dl (2.5-4.0) 08/28/25 23:04 Albumin/Globulin Ratio 0.9 (0.9-2) 08/28/25 23:04 Lipase 6 U/L (11-82) L 08/28/25 23:04 Diagnostic Findings Chest x-ray as per interpretation cardiomegaly, congestion, elevated right hemidiaphragm EKG as per my interpretation : Rate 50, complete heart block, LAD, LAFB, LVH, ST elevation inferior leads, PVCs
[2025-08-29] MEDS: HEPARIN (PORCINE) 1000 UNIT/ML 10 ML (CATH LAB USE ONLY) ONE ×2 (01:00→01:03)
[2025-08-29] MEDS: MIDAZOLAM HCL 1 MG/ML 2ML VIAL ONE (01:00)
[2025-08-29] MEDS: ATROPINE SULFATE 0.1 MG/ML 10ML SYR IV ONE (01:02)
--- NOTE | 2025-08-29 01:08 | Post Anesthesia Assessment ---
Date of Service August 29, 2025 Post Sedation Assessment Vital Signs Temp Pulse Resp BP Pulse Ox O2 Del Method 08/28/25 22:48 49 L 08/28/25 22:31 97.9 F 46 L 20 96/60 L 97 Room Air Recovery Score Activity: Moves 4 extremities Respiration: Deep Breath/Cough Circulation: +/-20% PreAnes Value Consciousness: Fully Awake Oxygen Saturation: O2 needed for >90% Discharge Sedation Level of Care: Fast Track Phase II
--- NOTE | 2025-08-29 01:09 | Cardiology Consultation ---
Date of Consultation August 28, 2025 Assessment & Plan (1) STEMI (ST elevation myocardial infarction): Presentation consistent with inferior STEMI and recommend proceeding with emergent cardiac catheterization and likely primary PCI. May need transvenous pacemaker with complete heart block. Discussed risks, benefits, alternatives of procedure with patient and and they are willing to proceed. Further recommendations pending findings of coronary angiography. History of Present Illness Attending Physician: Amadou Shay MD History of Present Illness 59-year-old male here with back/abdominal pain and ECG concerning for acute [place]. Patient seen emergently in the ED after heart alert activated on arrival. Past cardiac history remarkable for CAD post multiple remote stents. History of renal failure post functioning renal transplant. Has insulin-dependent diabetes complicated by neuropathy, also with dyslipidemia. Carries diagnosis of atrial fibrillation, not on anticoagulation. Has not seen cardiology since his transplant. Describes stuttering abdominal pain/back pain for days. This has been associated with nausea/vomiting, diarrhea and decreased appetite over that time. Due to symptoms has had difficulty sleeping the last few nights. Tonight pain was persistent and new with going to be unable to sleep so presented to ED. On arrival had ongoing chest pain and initially borderline hypotensive with pressures in the 90s, heart rates to the 40s with EKG showing complete heart block and inferior ST elevations. Allergies Allergy/AdvReac Type Severity Reaction Status Date / Time bee venom protein (honey bee) Allergy Severe SHORTNESS Verified 08/28/25 22:52 OF BREATH ondansetron Allergy Intermediate OVER ALL Verified 08/28/25 22:52 SWELLING Home Medications Medication Instructions Recorded Confirmed Type aspirin 81 mg tablet,delayed 81 mg PO QAM 09/11/19 08/28/25 History release (Alejo Low Dose Aspirin) epinephrine 0.3 mg/0.3 mL 0.3 mg subcut DIRECTED PRN 09/11/19 08/28/25 History injection, auto-injector (EpiPen) Anaphylaxis insulin lispro 100 unit/mL 15 unit subcut AC PRN PUMP FAILURE 09/11/19 08/28/25 History subcutaneous pen (Humalog KwikPen (U-100) Insulin) rosuvastatin 20 mg tablet (Crestor) 20 mg PO QAM 09/11/19 08/28/25 History tamsulosin 0.4 mg capsule (Flomax) 0.4 mg PO HS 09/11/19 08/28/25 History mycophenolate sodium 180 mg 360 mg (2 x 180 mg) PO BID #120 04/21/22 08/28/25 Rx tablet,delayed release tabs pregabalin 225 mg capsule 225 mg PO QPM 12/08/23 08/28/25 History diltiazem HCl 240 mg 240 mg PO DAILY 06/12/25 08/28/25 History capsule,extended release 24 hr Lactobacillus acidophilus 10 10,000 mmu cells PO DAILY 08/28/25 08/28/25 History billion cell capsule (Probiotic) glucagon 1 mg/0.2 mL subcutaneous 1 mg subcut DIRECTED PRN 08/28/25 08/28/25 History auto-injector (Gvoke HypoPen UNRESPONSIVE W/HYPOGLYCEMIA 2-Pack) insulin glargine 100 unit/mL (3 0 unit subcut DIRECTED 08/28/25 08/28/25 History mL) subcutaneous pen (Lantus Solostar U-100 Insulin) insulin lispro 100 unit/mL 1 sliding scale dose continuous 08/28/25 08/28/25 History subcutaneous solution subcutaneous infusion USEASDIRECTD insulin lispro 100 unit/mL 1 sliding scale dose continuous 08/28/25 08/28/25 History subcutaneous solution (Humalog subcutaneous infusion USEASDIRECTD U-100 Insulin) sildenafil 50 mg tablet 50 mg PO DAILY PRN Sexual Activity 08/28/25 08/28/25 History tacrolimus 1 mg capsule, 0.5 mg PO QPM 08/28/25 08/28/25 History immediate-release tacrolimus 1 mg capsule, 1 mg PO QAM 08/28/25 08/28/25 History immediate-release Patient History Medical History Chronic osteomyelitis involving ankle and foot Failure of outpatient treatment Infected surgical wound Ulcer of right foot due to type 2 diabetes mellitus Fever Renal transplant recipient Hypertension History of peritoneal dialysis Gastroparesis Diabetes Surgical History Status post right foot surgery Hx of kidney transplant September 2017 Prema Albarran Family History Father Colorectal cancer Mother Diabetes Social History Smoking Status: Never smoker Tobacco Type: Smokeless Tobacco (Dip or Chew) Second Hand Exposure: No; Do You Dip or Chew Tobacco: No; Hx Alcohol Use: Yes Alcohol type: beer and hard liquor Hx Substance Use: No Preferred Language: Romanian Communication Ability: Effective Drill Instructor Required: No Beliefs That Will Affect Care: None marital status: Current Living Situation: Spouse and Family Feels Safe at Home: Yes Assistive Devices: Cane, Denture - Upper, Denture - Lower, Glasses, Scoo ter/Electric Scooter and Walker Review of Systems Review of Systems: All systems reviewed & are unremarkable except as noted in HPI & below Physical Exam Physical Exam: General: Uncomfortable HEENT: Sclerae anicteric Lungs: Clear anteriorly Cardiac: Bradycardic, regular Vascular: 2+ right radial. Prior left upper extremity fistula Abdomen: Soft, nontender Extremities: Well perfused, no peripheral edema Psych: Alert orient x3, normal affect and mood Results & Data Vital Signs (Past 12 Hours) Vital Signs Temp Pulse Resp BP Pulse Ox O2 Del Method 08/28/25 22:48 49 L 08/28/25 22:31 97.9 F 46 L 20 96/60 L 97 Room Air PG Care Time/CCT Total # of Minutes Spent Total Time Spent with Patient: Total time spent is greater than 50% in coordination of care (as documented) at patient's floor/unit and/or counseling patient: Coding Level of Care Code 52091 ER DEPT VISIT MOD LVL 4 Diagnoses STEMI (ST elevation myocardial infarction) I21.3
[2025-08-29 01:22] LABS: Thyroid Stimulating Hormone 0.979 uIu/ml (0.300-4.500)
[2025-08-29] MEDS: PRASugrel TAB 10 MG TAB PO ONE (01:26)
[2025-08-29] MEDS ORDERED: GLUCOSE 40% GEL 15 GM TUBE PO PRN (01:37)
[2025-08-29] MEDS ORDERED: INSULIN ASPART 100 UNITS/ML VIAL SC PRN (01:37)
[2025-08-29] MEDS ORDERED: CARBOHYDRATES FOR HYPOGLYCEMIA PO PRN (01:37)
[2025-08-29] MEDS ORDERED: DEXTROSE 50% 50 ML SYRINGE IV PRN (01:37)
[2025-08-29] MEDS ORDERED: GLUCOSE 10 TAB/TUBE PO PRN (01:37)
[2025-08-29] MEDS ORDERED: GLUCAGON FOR INJ 1 MG VIAL SQ PRN (01:37)
--- NOTE | 2025-08-29 01:40 | Cardiac Catheterization ---
[facility] Data: Spring Assembler Supervisor Cardiac Status Clinical evaluation leading to the procedure CAD Presenation: STEMI Anginal Classification: CCS IV Diagnostic Physicians Name: Amadou Shay MD Closure Device Recommendations: PCI without planned CABG Cardiac Cath Procedure Full Procedure Date August 29, 2025 Pre-Procedure Diagnosis Pre-Procedure Diagnosis: STEMI and CAD AUC Score AUC Score: 9 Post-Procedure Diagnosis Post-Procedure Diagnosis: Severe CAD, Successful PCI and Elevated Intracardiac Pressures Procedure(s) Performed Procedure(s) Performed: Coronary Angiography, Left Heart Cath, Drug Eluting Stent, Temporary Pacemaker and Ultrasound Guided Vascular Access Deli Manager Amadou Shay MD Lathe Puller(s) Diebler Estimated Blood Loss Estimated Blood Loss: 30 Medication(s) Medication(s): Dopamine, Fentanyl, Heparin, Lidocaine 1%, Nicardipine, Nitroglycerin and Versed Medication(s): Prasugrel Summary of Findings Indication: STEMI/Heart Alert Access: 6 Fr slender right radial artery, 6 Fr right common femoral vein under ultrasound guidance Catheters: Randolph, pigtail, JL 4 guide, GuideLiner Findings: LM -normal caliber, no significant disease LAD -medium caliber, calcified, 3040% proximal, 30% mid segment disease, small distal vessel with 50-60% disease, distal vessel tapers prior to apex. Medium D1 with 4050% ostial stenosis. Circumflex -medium caliber, 40% proximal stenosis. Gives off medium OM2 with proximal patent stent and in-stent restenosis at distal aspect with 90% disease just after stent. Small AV groove circumflex without significant disease. RCA -dominant, medium caliber, calcified, 30% proximal, 70% mid, 100% acute latemid to distal occlusion. Prior stent noted in right posterior AV branch. LVEDP -21 -- PCI -- Antithrombotic therapy: Heparin, prasugrel Procedure: At start of procedure patient dyspneic with lying flat and placed on facemask, eventually BiPAP He remained in complete heart block with heart rates in the 40s. Started on dopamine prior to placement of transvenous pacemaker RCA cannulated with JR4 guide [employer] Trolley Driver 50 wire passed across lesion into distal vessel across right posterior AV branch stent into the PLB GuideLiner placed to proximal RCA Distal RCA lesion predilated with 2.5 compliant balloon Dilated RCA lesion stented with 2.5 x 30 mm Gabriele DARCI ending just proximal to takeoff of PDA Second DARCI (3.0 x 15 mm Gabriele) placed to distal RCA overlapping proximal aspect of initial stent. Overlap of stents postdilated with stent balloon at high atmospheres. Mid RCA predilated with 2.5 balloon Mid RCA stented with 3.0 x 12 mm [place] DARCI Stent post-dilated with 3.0 noncompliant balloon IC vasodilators administered for spasm Haziness noted at distal aspect of stents and after PDA. RCA rewired with new pilot can router 50 wire. Repeat balloon inflation of distal RCA stent with 2.5 balloon to high atmospheres. Post procedure INA 3 flow, stent well expanded with minimal residual stenosis and no apparent cardiac complications. By completion of procedure patient has been weaned off dopamine and was intermittently pacing with TVP. Arterial Closure: TR band Summary: 1. Inferior STEMI/100% acute distal RCA occlusion 2. Multivessel non-culprit coronary artery disease - Mid circumflexOM 2 stent patent with ISR and 90% stenosis at distal aspect of stent 30-40% proximal LAD, 50-60% distal small LAD. 45% ostial D1 40% diffuse disease in right posterior AV branch prior to patent stent into right PLB 3. Elevated intracardiac filling pressure 4. Complete heart block 5. Successful placement of transvenous pacemaker 6. Successful PCI of RCA with 3 drug-eluting stents (mid 3.0 x 12, distal overlapping 3.0 x 15, 2.5 x 30 Gabriele). Recommendations: Admit to ICU for continued monitoring Loaded with Prasugrel 60 Mg in Spring Assembler Supervisor Continue dual-antiplatelet therapy for at least 1 year. Trend troponins until peak, Check Echo TVP left in place. Potentially remove tomorrow if no longer required. Hold home diltiazem. Uptitrate BB, ARB as heart rate/BP allow. High-dose statin Pending clinical course will consider PCI to mid OM2 after prior stent. Medical management of remaining CAD. Hemodynamics Rest Ao:: 148/66/90 Final Ao: 98/54/60 LV: 95/21 Recommendations Recommendations: PCI without planned CABG Radiation Exposure (mGy) 5144 Contrast (mls) 120 Anesthesia Moderate 2919-2041 Procedural Complication(s) None Disposition Spring Assembler Supervisor Holding/Recovery I attest to the content of the Intraoperative Record and any orders documented therein. Any exceptions are noted below. IT'SUGARG Card Cath Procedure Codes Cardiac Catheterization Procedure 1: Cardiovascular Cath Procedures: 49632 Coronaries and LHC (+/-LV) Therapeutic Services & Ancillary Procedure 1: Cardiovascular Tx and Anc Procedures: 94894 Temp Pacer Insert Procedure 2: Cardiovascular Tx and Anc Procedures: 31257 Ultrasonic Guidance Vascular Access Procedure 3: Cardiovascular Tx and Anc Procedures: 70178 Ultrasonic Guidance Vascular Access Moderate Sedation Procedure 1: Sedation/Anesthesia: 16921 Mod Sedation by the same physician;Init15 Min Child Age 5 & Up Procedure 2: Sedation/Anesthesia: 19231 Mod Sedation by the same physician; Ea [id number] Minutes Stenting Procedure 1: Cardiovascular Stent Procedures: 22440 Perc transluminal revascularization of acute sub/total occl, aMI PG Care Time/CCT Total # of Minutes Spent Total Time Spent with Patient: Total time spent is greater than 50% in coordination of care (as documented) at patient's floor/unit and/or counseling patient:
--- NOTE | 2025-08-29 01:49 | Critical Care Consultation ---
Date of Consultation August 29, 2025 Assessment & Plan (1) STEMI (ST elevation myocardial infarction): (2) Hypoxic respiratory failure: (3) Bradycardia: (4) Diabetes mellitus with hyperglycemia: (5) Hypertension: (6) Hyperlipidemia: (7) Immunocompromised: (8) Renal transplant recipient: Plan Reason Critically Ill: 59 YOM presents as STEMI alert and taken urgently to the [facility] where he received 3 stents to the RCA, required BiPAP for hypoxic respiratory failure as well as placement of TVP for bradycardia in setting of acute STEMI Neuro - No acute needs CAM ICU: NEGATIVE - Continue to orient patient to place and time to hopefully decrease ICU delirium - Fully awake and appropriate following sedation in [facility] Cardiac - STEMI, symptomatic bradycardia, acute heart failure. HX: HTN, HLD, CAD - Patient taken urgently to [facility]- received DARCI x3 to RCA - STEMI- RCA- also associated with symptomatic bradycardia, acute heart failure with hypoxic respiratory failure - initially required BiPAP while lying flat- this has improved post procedure- and his oxygen has been able to be weaned following CXR that appears at his baseline from 06/27 - Will leave BiPAP on standby and place for hypoxia, dyspnea, or evidence of failure - His HR is being supported at this time with TVP at 50 VVI- currently 100% paced- reportedly complete heart block underlying rythm - hopeful this will improve as his perfusion to his myocardium improves- continue to follow and eval in am - Consider diuresis in am or earlier if needed for pulmonary status and hemodynamics stable - ECHO in am eval EF and wall motions- GDMT initiated pending results - DAPT therapy with ASA and Prasugrel - BB contraindicated currently as he is requiring TVP secondary to bradycardia/CHB- likely secondary to ischemia - Crestor for antilipid as already in place by cardiology - HGBa1C in am Respiratory - Acute hypoxic respiratory failure - Likely secondary to acute heart failure secondary to STEMI- improved post stenting of coronary arteries - CXR without obvious volume overload and when compared to previous appears to be baseline - BIPAP on standby as above - oxygen - wean as able keep spo2 > 94% GI - No acute needs - Continue home PPI - Diet heart healthy DMII carb consistent RENAL/LYTES - multiple electrolyte disturbances, HX: Renal transplant - replete potassium and magnesium - continue antirejection medications- defer these to the medical team that has full review of his outpatient records - Stout placed while lying flat and need for TVP - discontinue likley once femoral line TVP no longer required ENDO - DMII uncontrolled, insulin pump - Continue insulin pump and patient directed therapy- if patient unable to complete his dosing or is ineffective, will discontinue and place on basal/bolus - Patient able to demonstrate use at bedside and knowledge HEME - No acute needs - follow for any evidence of bleeding in light of DAPT and antiplatelets - Trnasfuse for active bleeding, symptomatic anemia or HGB <8.0 ID - No concerns at this time for infective etiology LINES/IV ACCESS - Mediport right scl, stout, right femoral TVP - obtain PIV once TR band is removed- currently adequate access with Mediport and infusion side port on introducer Continue use of these lines DVT PROPHYLAXIS - SCDS, ASA/Prasugrel DISPO: ICU while requiring 100% TVP and post STEMI. I have personally spent 45 minutes of critical care time in the direct management of this patient. This is a life/limb threatening event. This includes time spent evaluating patient, direct bedside care, chart review, placing or ders, interpretation of diagnostic studies, discussion with consultants, patient, and family members, as well as other required patient management activities. This time is exclusive of all separately billable procedures, and teaching time and separate from and in addition to any other critical care service time. Thank you for allowing us to participate in the care of this patient. Please refer to my attending physician's documentation for any further recommendations. Supervising Physician Co-Signing Physician Notes Patient seen and examined. EMR reviewed. Discussed with bedside critical care nurse and on multidisciplinary rounds as well as with overnight critical care EML. The patient is currently awake alert and conversant. He is paced. When the pacer is paused, there appears to be an intrinsic narrow complex rhythm of about 42 bpm. The patient was asymptomatic while the patient was paused. His access sites are clean dry and intact. He is not having any residual chest pain. Continue dual antiplatelet therapy. Holding beta-kassy given his bradycardia. May be able to start IRAIS inhibitor if blood pressure remains controlled although given the patient's kidney transplant, may need to coordinate with nephrology. Nephrology consultation for dosing of antirejection medications Continue to observe in ICU while patient is required. 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 He is accompanied by his - she provides history at this time. She reports that Ramesh has been having symptoms for the past 2 weeks of "huffing and puffing" and back pain. This has been getting progressively worse with some of his pain going from his back between his shoulders to his left shoulder and arm. She would note that he was also taking more breaks due to his dyspnea while he was up and active as well as dyspneic while at rest. Today she reports getting home from work around 2100 and Ramesh was feeling continuous back pain as well as increasing shortness of breath, dizziness and light headedness. She reports that they changed is omnipod today as well as his insulin pump reserve, Ramesh has his phones with his mel information and monitoring information and knows how to use these. She does report he is with poor compliance. Patient arrived to the ER for complaints of back pain and dyspnea, ECG was concerning for STEMI, he was heart alerted and taken urgently to the [facility]. He was noted to be bradycardic on arrival with borderline BPs, he initially required BiPAP for respiratory support, and Dopamine for hemodynamic support s he was noted to have CHB. During the case he did have a TVP placed to his RIGHT GROIN and is currently paced at 50 bpm. He did receive 3 stents to his RCA was loaded on prasugrel and aspirin. Patient arrives to the ICU awake, alert, moving all extremities- hemodynamics are stable off of vasopressors, but he is currently 100% ventricular paced via his right groin. IV access is through his right scl medi-port. CODE: FULL Allergies Allergy/AdvReac Type Severity Reaction Status Date / Time bee venom protein (honey bee) Allergy Severe SHORTNESS Verified 08/28/25 22:52 OF BREATH ondansetron Allergy Intermediate OVER ALL Verified 08/28/25 22:52 SWELLING Home Medications Medication Instructions Recorded Confirmed Type aspirin 81 mg tablet,delayed 81 mg PO QAM 09/11/19 08/28/25 History release (Alejo Low Dose Aspirin) epinephrine 0.3 mg/0.3 mL 0.3 mg subcut DIRECTED PRN 09/11/19 08/28/25 History injection, auto-injector (EpiPen) Anaphylaxis insulin lispro 100 unit/mL 15 unit subcut AC PRN PUMP FAILURE 09/11/19 08/28/25 History subcutaneous pen (Humalog KwikPen (U-100) Insulin) rosuvastatin 20 mg tablet (Crestor) 20 mg PO QAM 09/11/19 08/28/25 History tamsulosin 0.4 mg capsule (Flomax) 0.4 mg PO HS 09/11/19 08/28/25 History mycophenolate sodium 180 mg 360 mg (2 x 180 mg) PO BID #120 04/21/22 08/28/25 Rx tablet,delayed release tabs pregabalin 225 mg capsule 225 mg PO QPM 12/08/23 08/28/25 History diltiazem HCl 240 mg 240 mg PO DAILY 06/12/25 08/28/25 History capsule,extended release 24 hr Lactobacillus acidophilus 10 10,000 mmu cells PO DAILY 08/28/25 08/28/25 History billion cell capsule (Probiotic) glucagon 1 mg/0.2 mL subcutaneous 1 mg subcut DIRECTED PRN 08/28/25 08/28/25 History auto-injector (Gvoke HypoPen UNRESPONSIVE W/HYPOGLYCEMIA 2-Pack) insulin glargine 100 unit/mL (3 0 unit subcut DIRECTED 08/28/25 08/28/25 History mL) subcutaneous pen (Lantus Solostar U-100 Insulin) insulin lispro 100 unit/mL 1 sliding scale dose continuous 08/28/25 08/28/25 History subcutaneous solution subcutaneous infusion USEASDIRECTD insulin lispro 100 unit/mL 1 sliding scale dose continuous 08/28/25 08/28/25 History subcutaneous solution (Humalog subcutaneous infusion USEASDIRECTD U-100 Insulin) sildenafil 50 mg tablet 50 mg PO DAILY PRN Sexual Activity 08/28/25 08/28/25 History tacrolimus 1 mg capsule, 0.5 mg PO QPM 08/28/25 08/28/25 History immediate-release tacrolimus 1 mg capsule, 1 mg PO QAM 08/28/25 08/28/25 History immediate-release Patient History Medical History Failure of outpatient treatment Infected surgical wound Ulcer of right foot due to type 2 diabetes mellitus Fever History of peritoneal dialysis Gastroparesis Diabetes Surgical History Status post right foot surgery Hx of kidney transplant September 2017 Prema Albarran Family History Father Colorectal cancer Mother Diabetes Social History Smoking Status: Heavy tobacco smoker Tobacco Type: Smokeless Tobacco (Dip or Chew) Second Hand Exposure: No; Do You Dip or Chew Tobacco: Yes; Hx Alcohol Use: Yes Alcohol type: beer Hx Substance Use: No Preferred Language: Khmer Communication Ability: Effective Shop Foreman Required: No Beliefs That Will Affect Care: None marital status: Current Living Situation: Spouse Feels Safe at Home: Yes Assistive Devices: Cane, Denture - Upper, Denture - Lower and Glasses Review of Systems Review of Systems: REVIEW OF SYSTEMS: Constitutional: No fever, sweats or chills Eyes: No diplopia, no worsening of vision ENT: normal hearing, no trouble swallowing Respiratory: (+) dyspnea at rest and with exertion, No cough, sputum, dyspnea at rest or on exertion Cardiovascular: (+) No chest pain, tightness dizziness- resolved Abdomen: No pain, nausea, vomiting, diarrhea or constipation Musculoskeletal: No joint pain, calf pain, swelling Neurologic: No weakness, numbness/tingling, or balance problems Psychiatric: No anxiety or depression Physical Exam Physical Exam: PHYSICAL EXAM: General: awake, alert, no apparent distress Head: Normocephalic, atraumatic ENT: PERRLA, EOMI, no pharyngeal exudate, mucous membranes dry Neuro: AAO x 3, speech clear and appropriate, strength intact bilaterally 5/5, sensation intact and equal all extremities and dermatomes, no pronator drift Chest: equal rise and fall of the chest, no accessory muscle use, no heaves or thrills, Clear to auscultation, on BiPAP 10/5 40% Cardiac: regular rate and rhythm - 100% ventricular paced via femoral TVP, telemetry reviewed- appropriate fire and capture, skin warm dry, cap refill <3 seconds, peripheral pules +2 no JVD, no murmur, right TR band in place- normal sensation, movement and color to right hand, RIGHT groin introducer with TVP locked and baloon port locked GI: NABS x 4 quadrants, soft, nontender to palpation, no rebound, guarding or tenderness : stout placed to gravity with warren urine Extremities: Normal inspection, no peripheral edema or erythema, calfs nontender to palpation Psych: Normal mood and affect Results & Data Results & Data Vital Signs (Past 12 Hours) Vital Signs Temp Pulse Resp BP Pulse Ox O2 Del Method FiO2 08/29/25 01:25 50 L 28 H 98 40 08/28/25 23:30 58 L 30 H 100 60 08/28/25 23:05 61 29 H 96 45 08/28/25 22:48 49 L 08/28/25 22:31 36.6 C 46 L 20 96/60 L 97 Room Air Laboratory Results Abnormal lab results 08/28/25 08/28/25 08/28/25 Range/Units 23:04 23:08 23:56 WBC 14.86 H (4.8-10.8) K/ul RBC 4.03 L (4.70-6.10) M/uL Hgb 12.0 L (14.0-18.0) g/dL POC Hgb 12.6 L (14.0-18.0) g/dl Hct 35.4 L (42.0-52.0) % POC Hct 37 L (42-52) % Neut # (Auto) 12.26 H (1.40-6.50) K/uL Lymph # (Auto) 1.11 L (1.20-3.40) K/uL Hartley # (Auto) 1.39 H (0.11-0.59) K/uL Activ Coag Time Kaolin 239 H (94-140) SECONDS POC Sodium 125 L (135-144) mmol/L Sodium 124 L (136-145) mmol/L POC Chloride 90 L (101-112) mmol/L Chloride 91 L (98-107) mmol/L POC Total CO2 20 L (24-31) mmol/L Anion Gap 12 H (3-11) POC BUN 29 H (7-18) mg/dl BUN 32 H (6-23) mg/dl Creatinine 1.46 H (0.6-1.4) mg/dl POC Creatinine 1.6 H (0.6-1.3) mg/dl BUN/Creatinine Ratio 21.9 H (10-20) Glucose 357 H* (70-99(Fasting)) mg/dl POC Glucose (70-99) mg/dl POC Glucose (other) 334 H (70-99) mg/dl Magnesium 1.5 L (1.7-2.4) mg/dl Total Bilirubin 1.3 H (0.2-1.0) mg/dl Troponin I High Sens 29813.6 H* (0-20) pg/ml B-Natriuretic Peptide 2699 H (0-100) pg/ml Albumin 3.1 L (3.4-5.0) gm/dl Lipase 6 L (11-82) U/L 08/29/25 08/29/25 Range/Units 00:34 01:52 WBC (4.8-10.8) K/ul RBC (4.70-6.10) M/uL Hgb (14.0-18.0) g/dL POC Hgb (14.0-18.0) g/dl Hct (42.0-52.0) % POC Hct (42-52) % Neut # (Auto) (1.40-6.50) K/uL Lymph # (Auto) (1.20-3.40) K/uL Hartley # (Auto) (0.11-0.59) K/uL Activ Coag Time Kaolin 285 H (94-140) SECONDS POC Sodium (135-144) mmol/L Sodium (136-145) mmol/L POC Chloride (101-112) mmol/L Chloride (98-107) mmol/L POC Total CO2 (24-31) mmol/L Anion Gap (3-11) POC BUN (7-18) mg/dl BUN (6-23) mg/dl Creatinine (0.6-1.4) mg/dl POC Creatinine (0.6-1.3) mg/dl BUN/Creatinine Ratio (10-20) Glucose (70-99(Fasting)) mg/dl POC Glucose 348 H* (70-99) mg/dl POC Glucose (other) (70-99) mg/dl Magnesium (1.7-2.4) mg/dl Total Bilirubin (0.2-1.0) mg/dl Troponin I High Sens (0-20) pg/ml B-Natriuretic Peptide (0-100) pg/ml Albumin (3.4-5.0) gm/dl Lipase (11-82) U/L Medications Administered Home Medications aspirin 81 mg tablet,delayed release (Alejo Low Dose Aspirin) 81 mg PO QAM 09/11/19 [History Confirmed 08/28/25] epinephrine 0.3 mg/0.3 mL injection, auto-injector (EpiPen) 0.3 mg subcut DIRECTED PRN Anaphylaxis 09/11/19 [History Confirmed 08/28/25] insulin lispro 100 unit/mL subcutaneous pen (Humalog KwikPen (U-100) Insulin) 15 unit subcut AC PRN PUMP FAILURE 09/11/19 [History Confirmed 08/28/25] rosuvastatin 20 mg tablet (Crestor) 20 mg PO QAM 09/11/19 [History Confirmed 08/28/25] tamsulosin 0.4 mg capsule (Flomax) 0.4 mg PO HS 09/11/19 [History Confirmed 08/28/25] mycophenolate sodium 180 mg tablet,delayed release 360 mg (2 x 180 mg) PO BID #120 tabs 04/21/22 [Rx Confirmed 08/28/25] pregabalin 225 mg capsule 225 mg PO QPM 12/08/23 [History Confirmed 08/28/25] diltiazem HCl 240 mg capsule,extended release 24 hr 240 mg PO DAILY 06/12/25 [History Confirmed 08/28/25] Lactobacillus acidophilus 10 billion cell capsule (Probiotic) 10,000 mmu cells PO DAILY 08/28/25 [History Confirmed 08/28/25] glucagon 1 mg/0.2 mL subcutaneous auto-injector (Gvoke HypoPen 2-Pack) 1 mg subcut DIRECTED PRN UNRESPONSIVE W/HYPOGLYCEMIA 08/28/25 [History Confirmed 08/28/25] insulin glargine 100 unit/mL (3 mL) subcutaneous pen (Lantus Solostar U-100 Insulin) 0 unit subcut DIRECTED 08/28/25 [History Confirmed 08/28/25] insulin lispro 100 unit/mL subcutaneous solution 1 sliding scale dose continuous subcutaneous infusion USEASDIRECTD 08/28/25 [History Confirmed 08/28/25] insulin lispro 100 unit/mL subcutaneous solution (Humalog U-100 Insulin) 1 sliding scale dose continuous subcutaneous infusion USEASDIRECTD 08/28/25 [History Confirmed 08/28/25] sildenafil 50 mg tablet 50 mg PO DAILY PRN Sexual Activity 08/28/25 [History Confirmed 08/28/25] tacrolimus 1 mg capsule, immediate-release 0.5 mg PO QPM 08/28/25 [History Confirmed 08/28/25] tacrolimus 1 mg capsule, immediate-release 1 mg PO QAM 08/28/25 [History Confirmed 08/28/25] Active Medications Aspirin (Aspirin 81 Mg Ectab) 81 mg PO QAM JOSE Stop: 09/28/25 08:59 Dextrose (Dextrose 50% 50 Ml Syringe) 25 - 50 ml IV UD PRN; Protocol PRN Reason: Hypoglycemia Protocol Stop: 09/28/25 01:36 Glucagon (Glucagon For Inj 1 Mg Vial) 1 mg SQ UD PRN; Protocol PRN Reason: Hypoglycemia Protocol Stop: 09/28/25 01:36 Glucose (Glucose 40% Gel 15 Gm Tube) 15 - 30 gm PO UD PRN; Protocol PRN Reason: Hypoglycemia Protocol Stop: 09/28/25 01:36 Glucose (Glucose 10 Tab/Tube) 4 - 8 tab PO UD PRN; Protocol PRN Reason: Hypoglycemia Protocol Stop: 09/28/25 01:36 Magnesium Sulfate/Dextrose (Magnesium Sulfate / D5w) 1 gm in 100 mls @ 50 mls/hr IV Q2H JOSE Stop: 08/29/25 04:44 Last Admin: 08/29/25 02:03 Dose: 50 mls/hr Insulin Aspart (Insulin, Rapid-Acting Pump) 0 each SC ACHS JOSE; Protocol Stop: 09/28/25 07:29 Insulin Aspart (Insulin Aspart 100 Units/Ml Vial) 0 units SC PRN PRN PRN Reason: Insulin (Rapid-Acting) Pump Refill Stop: 09/28/25 01:36 Miscellaneous (Icu Protocol For Hyperglycemia) 1 each N/A ACHS JOSE Stop: 08/31/25 07:29 Miscellaneous (Continuous Glucose Monitor) 0 each N/A ACHS [facility] Stop: 09/28/25 07:29 Miscellaneous (Carbohydrates For Hypoglycemia ) 15 - 30 gm PO UD PRN PRN Reason: Hypoglycemia Protocol Stop: 09/28/25 01:36 Pantoprazole Sodium (Pantoprazole 40 Mg Tab) 40 mg PO QAM [facility] Stop: 09/28/25 08:59 Prasugrel (Prasugrel Tab 10 Mg Tab) 10 mg PO QAM [facility] Stop: 09/28/25 08:59 Rosuvastatin Calcium (Rosuvastatin Calcium 20 Mg Tab) 20 mg PO QAM [facility] Stop: 09/28/25 08:59 ECG Additional Comments: Ventricular-paced rhythm Abnormal ECG When compared with ECG [id number] 22:42,(unconfirmed) Electronic ventricular pacemakerhas replacedWide QRS rhythm Coding Level of Care Code 07705 CRITICAL CARE 1ST 30-74M Diagnoses ST elevation myocardial infarction involving right coronary artery I21.11 Involved coronary artery: right coronary artery Acute respiratory failure with hypoxia J96.01 Chronicity: acute Bradycardia R00.1 Type 2 diabetes mellitus with hyperglycemia, with long-term current use of insulin E11.65; Z79.4 Diabetes mellitus half-way insulin use: with terminal worker use Diabetes mellitus type: type 2 Essential hypertension I10 Hypertension type: essential hypertension Hyperlipidemia, unspecified hyperlipidemia type E78.5 Hyperlipidemia type: unspecified Immunocompromised D84.9 Renal transplant recipient Z94.0 (1) STEMI (ST elevation myocardial infarction) Involved coronary artery: right coronary artery Qualified Code(s): I21.11 - ST elevation (STEMI) myocardial infarction involving right coronary artery (2) Hypoxic respiratory failure Chronicity: acute Qualified Code(s): J96.01 - Acute respiratory failure with hypoxia (4) Diabetes mellitus with hyperglycemia Diabetes mellitus terminal worker insulin use: with terminal worker use Diabetes mellitus type: type 2 Qualified Code(s): E11.65 - Type 2 diabetes mellitus with hyperglycemia; Z79.4 - terminal worker (current) use of insulin (5) Hypertension Hypertension type: essential hypertension Qualified Code(s): I10 - Essential (primary) hypertension (6) Hyperlipidemia Hyperlipidemia type: unspecified Qualified Code(s): E78.5 - Hyperlipidemia, unspecified
[2025-08-29] MEDS: MAGNESIUM SULFATE / D5W 1 GM/100 ML BAG IV SCH (02:03)
[2025-08-29] MEDS: Patient's HEIGHT &/or WEIGHT Needed STA (02:08)
[2025-08-29 02:22] LABS: Appearance Urine Clear (Clear); Bacteria Urine Automated None Seen (None Seen); Epithelial Cell Urine Auto 0-2 /hpf (0-2); Glucose Urine UA 2+ (Negative); WBC Urine Automated 0-5 /hpf (0-5)
[2025-08-29] MEDS: ONDANSETRON INJ 2 MG/ML 2 ML VIAL IV STA (02:25)
[2025-08-29] MEDS: PROMETHAZINE 12.5 MG/50.5 ML BAG IV STA (02:25)
[2025-08-29] MEDS: ACETAMINOPHEN 1,000 MG/100 ML VIAL IV STA (02:25)
[2025-08-29] MEDS: OPTIRAY 350 ONE (02:25)
--- NOTE | 2025-08-29 02:53 | XRay Report ---
EXAM: XR chest 1V portable CLINICAL HISTORY: eval lung centeno, lines,- pulmonary edema. TECHNIQUE: An X-ray image of the chest is obtained in AP projection. COMPARISON: Compared with the previous X-ray dated 06/12/2025. FINDINGS: Well-positioned right-sided portacath with its tip at the cavoatrial junction. (no change) Redemonstration of a vascular stent, which is seen overlapping the left lung apex. Multiple leads and a linear tubular shadow is seen curved, overlapping the lower chest and upper abdomen, to be correlated clinically. (new) Pulmonary Parenchyma: Bilateral prominent bronchovascular markings, more evident in both upper lung zones, could represent pulmonary edema. (Mildly increase) No evidence of consolidation, collapse, or focal opacities. No pulmonary nodules are identified. No evidence of pleural effusion or pleural thickening. Heart and Mediastinum: Heart size and shape are normal. No mediastinal widening or masses. No hilar or mediastinal lymphadenopathy. Bony Thorax: Bony thorax appears intact without fractures or deformities. Soft Tissues: Soft tissues overlying the chest wall are unremarkable. IMPRESSION: 1. Bilateral prominent bronchovascular markings more evident in both upper lung zones, could represent pulmonary edema, to be clinically correlated. (Mildly increased) 2. No evidence of consolidation, collapse or pleural effusion. 3. Well-positioned right-sided portacath with its tip at the cavoatrial junction. (no change) 4. Redemonstration of a vascular stent, which is seen overlapping the left lung apex. 5. Multiple leads of ECG and a linear tubular shadow is seen curved, overlapping the lower chest and upper abdomen, to be correlated clinically. (new) Electronically signed by Dereje Cuellar 08-29-2025 02:53 AM
[2025-08-29] MEDS ORDERED: PHARMACY GLYCEMIC MGMT CONSULT PRN (04:01)
[2025-08-29 04:09] LABS: Hematocrit (blood only) 33.7 % (42.0-52.0); Hemoglobin 11.6 g/dL (14.0-18.0); Immature Granulocytes # (auto) 0.11 K/uL (0.01-0.20); Immature Granulocytes % (auto) 0.7 %; Mean Corpuscular Hemoglobin 30.2 pg (25.0-34.0); Mean Corpuscular Volume 87.8 fL (80.0-100.0); Platelet Count 231 K/uL (130-400); RDW Standard Deviation 41.5 fL (36.4-46.3); Red Blood Count 3.84 M/uL (4.70-6.10); White Blood Count 15.51 K/ul (4.8-10.8)
[2025-08-29] MEDS ORDERED: PROMETHAZINE 6.25 MG/50.25 ML BAG IV PRN (04:09)
[2025-08-29] MEDS ORDERED: HYDROmorphone INJ 0.5 MG/0.5 ML SYR IV PRN (04:09)
[2025-08-29 04:37] LABS: Anion Gap 9.0 (3-11); Blood Urea Nitrogen 32.0 mg/dl (6-23); Calcium 8.7 mg/dl (8.6-10.3); Carbon Dioxide 23.0 mmol/L (21-32); Chloride 92.0 mmol/L (98-107); Cholesterol 87.0 mg/dl (0-200); Creatinine Clr Calc Pharmacy 80.9 ml/min; Glucose 329.0 mg/dl (70-99(Fasting)); HDL Cholesterol 15.0 mg/dl; Magnesium 2.2 mg/dl (1.7-2.4); Potassium 3.9 mmol/L (3.5-5.1); Sodium 124.0 mmol/L (136-145); Triglycerides 118.0 mg/dl (0-150)
[2025-08-29] MEDS: FUROSEMIDE 40 MG/4 ML VIAL IV ONE (06:24)
[2025-08-29 07:22] LABS: Hemoglobin A1C 9.0 % (4.5-5.6)
[2025-08-29] MEDS: Continuous Glucose Monitor SCH (07:46)
[2025-08-29] MEDS: INSULIN, Rapid-Acting PUMP SC SCH (07:47)
[2025-08-29] MEDS: ASPIRIN 81 MG ECTAB PO SCH (08:35)
[2025-08-29] MEDS: MYCOPHENOLATE SODIUM 180 MG TAB PO SCH (08:35)
[2025-08-29] MEDS: TACROLIMUS 1 MG CAP PO SCH (08:35)
[2025-08-29] MEDS: ROSUVASTATIN CALCIUM 20 MG TAB PO SCH (08:35)
[2025-08-29] MEDS: PRASugrel TAB 10 MG TAB PO SCH (08:35)
--- NOTE | 2025-08-29 09:35 | Hospitalist Progress Note ---
Date of Service August 29, 2025 Assessment & Plan (1) ST elevation (STEMI) myocardial infarction: Plan: 59M with PMH CAD, IDDM, pAF, HTN HLD, MATT on cpap, kidney transplant on immunosuppresive therapy, anemia, prior tobacco use who presents with STEMI #STEMI -S/p DARCI x 3 to RCA -Compete heart block secondary to STEMI -S/p temporary pacer Plan -Continue DAPT per cardio -BB contraindicated due to bradycardia -High intensity statin -TTE -Continue cardiac monitoring in ICU -Appreciate cardio and ICU management #Acute hypoxic resp failure -CXR reviewed, clear -Resolved, now on 2L NC -Management per ICU #Fever -Fever 37.6 this AM -No clear source of infection -ROS neg for source of infection -WBC 15 -Likely reactive Plan -If persistent, check blood cultures and start empiric abx -Observe off abx for now #IDDM -Uses insulin pump at home -BG in 300s currently -A1c 9.0 -IF BG doesn't improve, switch to basal bolus #Acute on Chronic hyponatremia -Na 124 on admission, baseline around 128 -Asymptomatic -Monitor -Avoid rapid overcorrection #Hypomagnesemia -Resolved #History of ESRD s/p kidney transplant -Cr at baseline, 1.3-1.5 -Continue home immunosuppressive therapy #pAfib -Not on home AC #HTN -Defer BP management to cardio for GDMT ISO STEMI I spent a total of 52 minutes coordinating, documenting, and providing care for this patient excluding time spent in the performance of separately billed services. This included personally reviewing all current laboratories and imaging studies, medical reconciliation, outpatient chart review and discussion with specialists Admission and Anticipated Discharge Date Admission Date: August 29, 2025 Subjective Feeling well this AM. Patient denies F/C, CP, palpitations, SOB, dyspnea, abd pain, N/V/D Physical Exam Physical Exam: Vitals and labs reviewed General: Well appearing, NAD HEENT: EOMI, PERRLA Neck: Supple Cardiac: bradycardia. regular rate. Lungs: CTA no rhonchi wheezing or rales Abd: S NT ND BS positive : Sutton MSK: Full ROM. No obvious deformities Ext: No Edema cyanosis Skin: Warm, Dry Neuro: AOx3 No focal deficits. Psych: Normal Mood Results & Data Results & Data Vital Signs (Past 12 Hours) Vital Signs Temp Pulse Pulse Resp BP BP Pulse Ox 11/27/25 08:00 08/29/25 07:40 08/29/25 07:38 50 L 08/29/25 07:00 37.6 C H 50 L 25 H 144/73 H 94 08/29/25 06:01 122/74 08/29/25 06:00 37.6 C H 50 L 26 H 95 08/29/25 05:00 37.6 C H 50 L 19 150/70 H 96 08/29/25 04:03 37.5 C 50 L 27 H 96 08/29/25 04:00 37.5 C 50 L 31 H 128/78 94 08/29/25 03:03 37.4 C 50 L 27 H 96 08/29/25 03:01 119/73 08/29/25 03:00 37.3 C 50 L 27 H 95 08/29/25 02:18 08/29/25 02:14 50 L 08/29/25 02:00 37.1 C 50 L 25 H 135/68 98 08/29/25 01:57 08/29/25 01:25 50 L 28 H 98 08/29/25 01:21 50 L 29 H 97 08/29/25 01:20 145/79 H 08/29/25 01:20 35.9 C L 50 L 18 145/79 H 99 08/29/25 01:18 61 27 H 08/28/25 23:30 58 L 30 H 100 08/28/25 23:05 61 29 H 96 08/28/25 22:48 49 L 08/28/25 22:31 36.6 C 46 L 20 96/60 L 97 Pulse Ox O2 Del Method O2 Del Method O2 Flow Rate O2 Flow Rate FiO2 08/29/25 08:00 95 Nasal Cannula 2 08/29/25 07:40 Nasal Cannula 2 08/29/25 07:38 08/29/25 07:00 Nasal Cannula 2 08/29/25 06:01 08/29/25 06:00 08/29/25 05:00 08/29/25 04:03 08/29/25 04:00 08/29/25 03:03 08/29/25 03:01 08/29/25 03:00 08/29/25 02:18 Nasal Cannula 2 08/29/25 02:14 08/29/25 02:00 08/29/25 01:57 BiPAP 08/29/25 01:25 40 08/29/25 01:21 08/29/25 01:20 08/29/25 01:20 BiPAP 08/29/25 01:18 08/28/25 23:30 60 08/28/25 23:05 45 08/28/25 22:48 08/28/25 22:31 Room Air Laboratory Results Abnormal lab results 08/28/25 08/28/25 08/28/25 Range/Units 23:04 23:08 23:56 WBC 14.86 H (4.8-10.8) K/ul RBC 4.03 L (4.70-6.10) M/uL Hgb 12.0 L (14.0-18.0) g/dL POC Hgb 12.6 L (14.0-18.0) g/dl Hct 35.4 L (42.0-52.0) % POC Hct 37 L (42-52) % Neut # (Auto) 12.26 H (1.40-6.50) K/uL Lymph # (Auto) 1.11 L (1.20-3.40) K/uL Blackford # (Auto) 1.39 H (0.11-0.59) K/uL Activ Coag Time Kaolin 239 H (94-140) SECONDS POC Sodium 125 L (135-144) mmol/L Sodium 124 L (136-145) mmol/L POC Chloride 90 L (101-112) mmol/L Chloride 91 L (98-107) mmol/L POC Total CO2 20 L (24-31) mmol/L Anion Gap 12 H (3-11) POC BUN 29 H (7-18) mg/dl BUN 32 H (6-23) mg/dl Creatinine 1.46 H (0.6-1.4) mg/dl POC Creatinine 1.6 H (0.6-1.3) mg/dl BUN/Creatinine Ratio 21.9 H (10-20) Glucose 357 H* (70-99(Fasting)) mg/dl POC Glucose (70-99) mg/dl POC Glucose (other) 334 H (70-99) mg/dl Hemoglobin A1c (4.5-5.6) % Magnesium 1.5 L (1.7-2.4) mg/dl Total Bilirubin 1.3 H (0.2-1.0) mg/dl Troponin I High Sens 52507.6 H* (0-20) pg/ml B-Natriuretic Peptide 2699 H (0-100) pg/ml Albumin 3.1 L (3.4-5.0) gm/dl Cholesterol/HDL Ratio (0-5) Lipase 6 L (11-82) U/L Ur Specific Drummond (1.000-1.030) Urine Protein (Negative) Urine Glucose (UA) (Negative) Urine Ketones (Negative) Urine RBC (Auto) (0-2) /hpf U Hyaline Cast (Auto) (0-2) /lpf Urine Osmolality (500-800) mOsm/kg 08/29/25 08/29/25 08/29/25 Range/Units 00:34 01:49 01:52 WBC (4.8-10.8) K/ul RBC (4.70-6.10) M/uL Hgb (14.0-18.0) g/dL POC Hgb (14.0-18.0) g/dl Hct (42.0-52.0) % POC Hct (42-52) % Neut # (Auto) (1.40-6.50) K/uL Lymph # (Auto) (1.20-3.40) K/uL Blackford # (Auto) (0.11-0.59) K/uL Activ Coag Time Kaolin 285 H (94-140) SECONDS POC Sodium (135-144) mmol/L Sodium (136-145) mmol/L POC Chloride (101-112) mmol/L Chloride (98-107) mmol/L POC Total CO2 (24-31) mmol/L Anion Gap (3-11) POC BUN (7-18) mg/dl BUN (6-23) mg/dl Creatinine (0.6-1.4) mg/dl POC Creatinine (0.6-1.3) mg/dl BUN/Creatinine Ratio (10-20) Glucose (70-99(Fasting)) mg/dl POC Glucose 348 H* (70-99) mg/dl POC Glucose (other) (70-99) mg/dl Hemoglobin A1c (4.5-5.6) % Magnesium (1.7-2.4) mg/dl Total Bilirubin (0.2-1.0) mg/dl Troponin I High Sens (0-20) pg/ml B-Natriuretic Peptide (0-100) pg/ml Albumin (3.4-5.0) gm/dl Cholesterol/HDL Ratio (0-5) Lipase (11-82) U/L Ur Specific Drummond > 1.045 H (1.000-1.030) Urine Protein 1+ H (Negative) Urine Glucose (UA) 2+ H (Negative) Urine Ketones 1+ H (Negative) Urine RBC (Auto) 3-5 H (0-2) /hpf U Hyaline Cast (Auto) 6-10 H (0-2) /lpf Urine Osmolality 443 L (500-800) mOsm/kg 08/29/25 Range/Units 03:42 WBC 15.51 H (4.8-10.8) K/ul RBC 3.84 L (4.70-6.10) M/uL Hgb 11.6 L (14.0-18.0) g/dL POC Hgb (14.0-18.0) g/dl Hct 33.7 L (42.0-52.0) % POC Hct (42-52) % Neut # (Auto) 12.88 H (1.40-6.50) K/uL Lymph # (Auto) (1.20-3.40) K/uL Blackford # (Auto) 1.20 H (0.11-0.59) K/uL Activ Coag Time Kaolin (94-140) SECONDS POC Sodium (135-144) mmol/L Sodium 124 L (136-145) mmol/L POC Chloride (101-112) mmol/L Chloride 92 L (98-107) mmol/L POC Total CO2 (24-31) mmol/L Anion Gap (3-11) POC BUN (7-18) mg/dl BUN 32 H (6-23) mg/dl Creatinine (0.6-1.4) mg/dl POC Creatinine (0.6-1.3) mg/dl BUN/Creatinine Ratio 24.2 H (10-20) Glucose 329 H* (70-99(Fasting)) mg/dl POC Glucose (70-99) mg/dl POC Glucose (other) (70-99) mg/dl Hemoglobin A1c 9.0 H (4.5-5.6) % Magnesium (1.7-2.4) mg/dl Total Bilirubin (0.2-1.0) mg/dl Troponin I High Sens 49325.4 H* (0-20) pg/ml B-Natriuretic Peptide (0-100) pg/ml Albumin (3.4-5.0) gm/dl Cholesterol/HDL Ratio 5.8 H (0-5) Lipase (11-82) U/L Ur Specific Drummond (1.000-1.030) Urine Protein (Negative) Urine Glucose (UA) (Negative) Urine Ketones (Negative) Urine RBC (Auto) (0-2) /hpf U Hyaline Cast (Auto) (0-2) /lpf Urine Osmolality (500-800) mOsm/kg
--- NOTE | 2025-08-29 09:37 | XCELERA ---
[id number]
--- NOTE | 2025-08-29 11:48 | Nephrology Consultation ---
Date of Consultation August 29, 2025 Assessment & Plan (1) Renal transplant recipient: Patient is status post this is not kidney transplant in September 2018 previously maintained on belatacept and mycophenolate. This was interrupted due to insurance coverage. He is again due to start belatacept on 09/02/2025. Will continue current immunosuppression which is mycophenolate 360 mg twice daily and Prograf 1 mg in the morning and 0.5 mg in the evening. Graft function is stable with a creatinine down to 1.3. He has hyponatremia but this is due to the hyperglycemia. Recommend the improved blood sugar control. Urine output is reduced. Consider Plasmalyte at 75 mL/hour if oral intake is not adequate or If urine output drops even below 20 mL/hour. Daily BMP. Avoid contrast (2) Immunocompromised: will continue CellCept and Prograf as above. Patient is planned for on belatacept infusion after discharge. (3) ST elevation (STEMI) myocardial infarction: Patient is status post cardiac catheterization and stenting to the RCA. He is also on TVP. History of Present Illness Reason for Consultation: DDKT with STEMI Requesting Physician: Kervin Levy DO Attending Physician: Kervin Levy DO History of Present Illness This is a 59-year-old male with history of type 2 diabetes, AFib, this is donor kidney transplant at [facility] in September 2018 previously on belatacept and mycophenolate but recently changed to tacrolimus due to insurance issues who was admitted with back pain and dyspnea found have STEMI. 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 He was noted to be bradycardic on arrival with borderline BPs, he initially required BiPAP for respiratory support, and Dopamine for hemodynamic support. he did have a TVP placed to his RIGHT GROIN. He did receive 3 stents to his RCA was loaded on prasugrel and aspirin. admission creatinine of 1.6 but downtrending to 1.3. baseline creatinine is 1.1-1.3. Patient required BiPAP earlier in the morning but now on oxygen nasal cannula. Chest x-ray with no acute cardiopulmonary process. Blood sugar remains high in the 200-300 range. He denies any chest pain or shortness of breath. Allergies Allergy/AdvReac Type Severity Reaction Status Date / Time bee venom protein (honey bee) Allergy Severe SHORTNESS Verified 08/28/25 22:52 OF BREATH ondansetron Allergy Intermediate OVER ALL Verified 08/28/25 22:52 SWELLING Home Medications Medication Instructions Recorded Confirmed Type aspirin 81 mg tablet,delayed 81 mg PO QAM 09/11/19 08/28/25 History release (Alejo Low Dose Aspirin) epinephrine 0.3 mg/0.3 mL 0.3 mg subcut DIRECTED PRN 09/11/19 08/28/25 History injection, auto-injector (EpiPen) Anaphylaxis insulin lispro 100 unit/mL 15 unit subcut AC PRN PUMP FAILURE 09/11/19 08/28/25 History subcutaneous pen (Humalog KwikPen (U-100) Insulin) rosuvastatin 20 mg tablet (Crestor) 20 mg PO QAM 09/11/19 08/28/25 History tamsulosin 0.4 mg capsule (Flomax) 0.4 mg PO HS 09/11/19 08/28/25 History mycophenolate sodium 180 mg 360 mg (2 x 180 mg) PO BID #120 04/21/22 08/28/25 Rx tablet,delayed release tabs pregabalin 225 mg capsule 225 mg PO QPM 12/08/23 08/28/25 History diltiazem HCl 240 mg 240 mg PO DAILY 06/12/25 08/28/25 History capsule,extended release 24 hr Lactobacillus acidophilus 10 10,000 mmu cells PO DAILY 08/28/25 08/28/25 History billion cell capsule (Probiotic) glucagon 1 mg/0.2 mL subcutaneous 1 mg subcut DIRECTED PRN 08/28/25 08/28/25 History auto-injector (Gvoke HypoPen UNRESPONSIVE W/HYPOGLYCEMIA 2-Pack) insulin glargine 100 unit/mL (3 0 unit subcut DIRECTED 08/28/25 08/28/25 History mL) subcutaneous pen (Lantus Solostar U-100 Insulin) insulin lispro 100 unit/mL 1 sliding scale dose continuous 08/28/25 08/28/25 History subcutaneous solution subcutaneous infusion USEASDIRECTD insulin lispro 100 unit/mL 1 sliding scale dose continuous 08/28/25 08/28/25 History subcutaneous solution (Humalog subcutaneous infusion USEASDIRECTD U-100 Insulin) sildenafil 50 mg tablet 50 mg PO DAILY PRN Sexual Activity 08/28/25 08/28/25 History tacrolimus 1 mg capsule, 0.5 mg PO QPM 08/28/25 08/28/25 History immediate-release tacrolimus 1 mg capsule, 1 mg PO QAM 08/28/25 08/28/25 History immediate-release Patient History Medical History Failure of outpatient treatment Infected surgical wound Ulcer of right foot due to type 2 diabetes mellitus Fever History of peritoneal dialysis Gastroparesis Diabetes Surgical History Status post right foot surgery Hx of kidney transplant September 2017 Prema Albarran Family History Father Colorectal cancer Mother Diabetes Social History Smoking Status: Heavy tobacco smoker Tobacco Type: Smokeless Tobacco (Dip or Chew) Second Hand Exposure: No; Do You Dip or Chew Tobacco: Yes; Hx Alcohol Use: Yes Alcohol type: beer Hx Substance Use: No Preferred Language: Ukrainian Communication Ability: Effective 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 Gastrointestinal: Abdomen is soft, non distended, non tender, bowel sounds are present CVS: Regular rate and rhythm. No murmurs, rubs or gallops Musculoskeletal: No joint or muscle tenderness Extremities: Non tender, no edema, peripheral pulses are present Neuro: Oriented, no tremors, no focal neurological deficits Skin: No rashes Results & Data Vital Signs (Past 12 Hours) Vital Signs Temp Pulse Pulse Resp BP BP Pulse Ox 08/29/25 08:00 08/29/25 07:40 08/29/25 07:38 50 L 08/29/25 07:00 37.6 C H 50 L 25 H 144/73 H 94 08/29/25 06:01 122/74 08/29/25 06:00 37.6 C H 50 L 26 H 95 08/29/25 05:00 37.6 C H 50 L 19 150/70 H 96 08/29/25 04:03 37.5 C 50 L 27 H 96 08/29/25 04:00 37.5 C 50 L 31 H 128/78 94 08/29/25 03:03 37.4 C 50 L 27 H 96 08/29/25 03:01 119/73 08/29/25 03:00 37.3 C 50 L 27 H 95 08/29/25 02:18 08/29/25 02:14 50 L 08/29/25 02:00 37.1 C 50 L 25 H 135/68 98 08/29/25 01:57 08/29/25 01:25 50 L 28 H 98 08/29/25 01:21 50 L 29 H 97 08/29/25 01:20 145/79 H 08/29/25 01:20 35.9 C L 50 L 18 145/79 H 99 08/29/25 01:18 61 27 H Pulse Ox O2 Del Method O2 Del Method O2 Flow Rate O2 Flow Rate FiO2 08/29/25 08:00 95 Nasal Cannula 2 08/29/25 07:40 Nasal Cannula 2 08/29/25 07:38 08/29/25 07:00 Nasal Cannula 2 08/29/25 06:01 08/29/25 06:00 08/29/25 05:00 08/29/25 04:03 08/29/25 04:00 08/29/25 03:03 08/29/25 03:01 08/29/25 03:00 08/29/25 02:18 Nasal Cannula 2 08/29/25 02:14 08/29/25 02:00 08/29/25 01:57 BiPAP 08/29/25 01:25 40 08/29/25 01:21 08/29/25 01:20 08/29/25 01:20 BiPAP 08/29/25 01:18 Laboratory Results 08/29/25 10:59 08/28/25 08/29/25 23:04 03:42 WBC 14.86 H 15.51 H RBC 4.03 L 3.84 L MCV 87.8 87.8 MCH 29.8 30.2 MCHC 33.9 34.4 RDW Std Deviation 41.8 41.5 RDW Coeff of Dandre 13.0 12.9 Plt Count 211 231 MPV 12.1 11.7 Phosphorus 2.9 Albumin 3.1 L
--- NOTE | 2025-08-29 11:53 | Electrocardiogram Report ---
Test Reason : Blood Pressure : */* mmHG Vent. Rate : 48 BPM Atrial Rate : 88 BPM P-R Int : * ms QRS Dur : 130 ms QT Int : 490 ms P-R-T Axes : 56 -59 82 degrees QTcB Int : 437 ms Sinus rhythm with complete heart block ST segment changes consistent with acute inferior injury Left axis deviation Non-specific intra-ventricular conduction block Minimal voltage criteria for LVH, may be normal variant Possible Lateral infarct , age undetermined Abnormal ECG Confirmed by Amadou Dickey ([id number]) on 08/29/2025 11:53:33 AM Referred By: REFERRED SELF Confirmed By: Amadou Dickey
--- NOTE | 2025-08-29 11:56 | Electrocardiogram Report ---
Test Reason : Blood Pressure : */* mmHG Vent. Rate : 50 BPM Atrial Rate : 56 BPM P-R Int : * ms QRS Dur : 190 ms QT Int : 564 ms P-R-T Axes : 71 -71 80 degrees QTcB Int : 514 ms Ventricular-paced rhythm Abnormal ECG When compared with ECG of 28-Aug-2025 22:42, (unconfirmed) Electronic ventricular pacemaker has replaced Wide QRS rhythm Confirmed by Amadou Dickey ([id number] on 08/29/2025 11:55:32 AM Referred By: REFERRED SELF Confirmed By: Amadou Dickey
--- NOTE | 2025-08-29 12:35 | Cardiology Consultation ---
Date of Consultation August 29, 2025 Assessment & Plan (1) ST elevation (STEMI) myocardial infarction: (2) Bradycardia: 59-year-old male with past medical history of end-stage renal disease related to complications of diabetes and hypertension with subsequently undergone donor renal transplant at [facility] [place] presents with 1 week of epigastric discomfort, nauseousness, diarrhea has been found to have an inferior ST segment elevation complicated by bradycardia with third-degree at rioventricular block. Patient underwent emergent cardiac catheterization and implantation of 3 drug- eluting stents to the mid to distal right coronary artery. Residual OM2 stenosis noted. Most recent previous EKG dates back to 06/12/2025 with findings of bifascicular block pattern at that time including right bundle branch block and left anterior fascicular block, QRS duration 136 ms. Patient now presents with third-degree heart block and underwent temporary transvenous pacemaker for heart rate support during PCI. Post PCI echocardiogram attempted this morning but technically limited as pa tient is limited to the supine position with temporary pacemaker in place, AV synchrony noted as well as pacing from the right ventricular apex and therefore analysis of the left ventricular regional wall motion is technically limited. Ejection fraction felt to be abnormal and in the range of 35 to 40% on technically limited evaluation. Severe mitral annular calcification observed with mild mitral regurgitation. Compared to the previous echocardiogram performed in April,, the left ventricular ejection fraction was in the range of 65 to 70% at that time * Transvenous temporary pacemaker should remain in place (via right femoral vein approach) for now, with lower rate of 50 bpm. Will observe to determine next bradycardia/AV block improves. Given previous EKG with bifascicular block p attern in 2024, patient may be at risk for ongoing issues with bradycardia/conduction disease. * Continue aspirin, prasugrel, avoiding beta-blockers due to bradycardia. * Continue rosuvastatin 20 mg daily Case discussed with Dr Mckeon for the purpose of coordination of care. Chela Dodd DO History of Present Illness Attending Physician: Kervin Levy DO History of Present Illness Normal Dashawn is a 59 year old male seen in cardiology consultation per the request of Dr Maloney for management of an inferior ST segment myocardial infarction and complete heart block. Patient reports feeling ill for the last 1 week in time with nauseousness, vomiting, and diarrhea which he attributed to the medication side effect. He had a bandlike epigastric discomfort that radiated to his back. Ultimately due to worsening symptoms he presented to the emergency department with initial EKG revealing findings of inferior ST segment elevation with third-degree heart block, ventricular rate 48 bpm. Patient underwent emergent cardiac catheterization performed by Dr. Shay with findings of multivessel coronary heart disease including what was felt to be a culprit 100% occlusion of the late mid to distal right coronary artery. He was also found to have in-stent restenosis of the distal aspect of a previously placed stent in the obtuse marginal branch of the circumflex coronary artery nonobstructive disease of the left anterior descending coronary artery. The patient underwent placement of a transvenous temporary pacemaker via the right femoral vein followed by PCI of the right coronary artery with 3 drug- eluting stents. During my assessment patient was feeling well. Notes epigastric discomfort resolved. Telemetry reveals ventricular paced rhythm in the 50s. When the basal rate of the temporary pacemaker was turned down to 40 bpm, underlying rhythm of third-d egree heart block with ventricular rate in the range of 45 to 48 bpm present. Ongoing residual ST segment elevation noted on telemetry. Past Medical History: Patient had been seen in preoperative assessment prior to consideration of renal transplant by Dr. Lockett in 2012 with abnormal stress test at that time and subsequent stents to the right coronary artery and circumflex coronary artery performed at [facility] as well as [facility] (details of each procedure unavailable). He has a longstanding history of orthostatic hypotension Had subsequently undergone renal transplant Allergies Allergy/AdvReac Type Severity Reaction Status Date / Time bee venom protein (honey bee) Allergy Severe SHORTNESS Verified 08/28/25 22:52 OF BREATH ondansetron Allergy Intermediate OVER ALL Verified 08/28/25 22:52 SWELLING Home Medications Medication Instructions Recorded Confirmed Type aspirin 81 mg tablet,delayed 81 mg PO QAM 09/11/19 08/28/25 History release (Alejo Low Dose Aspirin) epinephrine 0.3 mg/0.3 mL 0.3 mg subcut DIRECTED PRN 09/11/19 08/28/25 History injection, auto-injector (EpiPen) Anaphylaxis insulin lispro 100 unit/mL 15 unit subcut AC PRN PUMP FAILURE 09/11/19 08/28/25 History subcutaneous pen (Humalog KwikPen (U-100) Insulin) rosuvastatin 20 mg tablet (Crestor) 20 mg PO QAM 09/11/19 08/28/25 History tamsulosin 0.4 mg capsule (Flomax) 0.4 mg PO HS 09/11/19 08/28/25 History mycophenolate sodium 180 mg 360 mg (2 x 180 mg) PO BID #120 04/21/22 08/28/25 Rx tablet,delayed release tabs pregabalin 225 mg capsule 225 mg PO QPM 12/08/23 08/28/25 History diltiazem HCl 240 mg 240 mg PO DAILY 06/12/25 08/28/25 History capsule,extended release 24 hr Lactobacillus acidophilus 10 10,000 mmu cells PO DAILY 08/28/25 08/28/25 History billion cell capsule (Probiotic) glucagon 1 mg/0.2 mL subcutaneous 1 mg subcut DIRECTED PRN 08/28/25 08/28/25 History auto-injector (Gvoke HypoPen UNRESPONSIVE W/HYPOGLYCEMIA 2-Pack) insulin glargine 100 unit/mL (3 0 unit subcut DIRECTED 08/28/25 08/28/25 History mL) subcutaneous pen (Lantus Solostar U-100 Insulin) insulin lispro 100 unit/mL 1 sliding scale dose continuous 08/28/25 08/28/25 History subcutaneous solution subcutaneous infusion USEASDIRECTD insulin lispro 100 unit/mL 1 sliding scale dose continuous 08/28/25 08/28/25 History subcutaneous solution (Humalog subcutaneous infusion USEASDIRECTD U-100 Insulin) sildenafil 50 mg tablet 50 mg PO DAILY PRN Sexual Activity 08/28/25 08/28/25 History tacrolimus 1 mg capsule, 0.5 mg PO QPM 08/28/25 08/28/25 History immediate-release tacrolimus 1 mg capsule, 1 mg PO QAM 08/28/25 08/28/25 History immediate-release Patient History Medical History Failure of outpatient treatment Infected surgical wound Ulcer of right foot due to type 2 diabetes mellitus Fever History of peritoneal dialysis Gastroparesis Diabetes Surgical History Status post right foot surgery Family History Father Colorectal cancer Mother Diabetes Social History Smoking Status: Heavy tobacco smoker Tobacco Type: Smokeless Tobacco (Dip or Chew) Second Hand Exposure: No; Do You Dip or Chew Tobacco: Yes; Hx Alcohol Use: Yes Alcohol type: beer Hx Substance Use: No Preferred Language: Burmese Communication Ability: Effective Psychiatric Attendant Required: No Beliefs That Will Affect Care: None marital status: Current Living Situation: Spouse Feels Safe at Home: Yes Assistive Devices: Cane, Denture - Upper, Denture - Lower and Glasses Review of Systems Review of Systems: All systems reviewed & are unremarkable except as noted in HPI & below Physical Exam Physical Exam: General: no acute distress and stated age Eyes: conjunctiva are pink and non-injected, sclera clear Neck: normal jugular venous pulse, no hepatojugular reflux Chest: normal shape and normal respiratory effort Lungs: clear to auscultation and percussion Cardiac Exam: - regular heart sounds, no murmurs, rubs, or gallops, no jugular venous distention Abdomen: abdomen soft, non-tender, no abnormal masses and no hepatosplenomegaly Extremities: no edema and no cyanosis -Transvenous pacemaker noted in the [facility] t femoral vein, site clean dry and intact, no erythema -Right radial artery access site clean d ry and intact without erythema Neuro:awake, conversant, follows commands, no focal motor deficits Psych: appropriate affect and insight. Results & Data Vital Signs (Past 12 Hours) Vital Signs Temp Pulse Pulse Resp BP BP Pulse Ox 08/29/25 12:00 37.8 C H 50 L 32 H 130/69 92 08/29/25 11:00 37.8 C H 50 L 21 139/77 92 08/29/25 10:00 37.9 C H 50 L 17 145/93 H 92 08/29/25 09:00 37.8 C H 50 L 31 H 134/69 95 08/29/25 08:00 37.6 C H 50 L 29 H 132/72 93 08/29/25 08:00 08/29/25 07:40 08/29/25 07:38 50 L 08/29/25 07:00 37.6 C H 50 L 25 H 144/73 H 94 08/29/25 06:01 122/74 08/29/25 06:00 37.6 C H 50 L 26 H 95 08/29/25 05:00 37.6 C H 50 L 19 150/70 H 96 08/29/25 04:03 37.5 C 50 L 27 H 96 08/29/25 04:00 37.5 C 50 L 31 H 128/78 94 08/29/25 03:03 37.4 C 50 L 27 H 96 08/29/25 03:01 119/73 08/29/25 03:00 37.3 C 50 L 27 H 95 08/29/25 02:18 08/29/25 02:14 50 L 08/29/25 02:00 37.1 C 50 L 25 H 135/68 98 08/29/25 01:57 08/29/25 01:25 50 L 28 H 98 08/29/25 01:21 50 L 29 H 97 08/29/25 01:20 145/79 H 08/29/25 01:20 35.9 C L 50 L 18 145/79 H 99 08/29/25 01:18 61 27 H Pulse Ox O2 Del Method O2 Del Method O2 Flow Rate O2 Flow Rate FiO2 08/29/25 12:00 08/29/25 11:00 08/29/25 10:00 08/29/25 09:00 08/29/25 08:00 08/29/25 08:00 95 Nasal Cannula 2 08/29/25 07:40 Nasal Cannula 2 08/29/25 07:38 08/29/25 07:00 Nasal Cannula 2 08/29/25 06:01 08/29/25 06:00 08/29/25 05:00 08/29/25 04:03 08/29/25 04:00 08/29/25 03:03 08/29/25 03:01 08/29/25 03:00 08/29/25 02:18 Nasal Cannula 2 08/29/25 02:14 08/29/25 02:00 08/29/25 01:57 BiPAP 08/29/25 01:25 40 08/29/25 01:21 08/29/25 01:20 08/29/25 01:20 BiPAP 08/29/25 01:18 Laboratory Results Cardiac Enzymes 08/28/25 08/29/25 08/29/25 Range/Units 23:04 03:42 10:59 AST 27 (13-39) U/L Troponin I High Sens 13398.6 H* 76852.4 H* 36555.7 H* D (0-20) pg/ml B-Natriuretic Peptide 2699 H (0-100) pg/ml Coagulation 08/28/25 Range/Units 23:04 B-Natriuretic Peptide 2699 H (0-100) pg/ml Lipids 08/29/25 Range/Units 03:42 Triglycerides 118 (0-150) mg/dl Cholesterol 87 (0-200) mg/dl HDL Cholesterol 15 mg/dl Cholesterol/HDL Ratio 5.8 H (0-5) CBC 08/28/25 08/29/25 Range/Units 23:04 03:42 WBC 14.86 H 15.51 H (4.8-10.8) K/ul RBC 4.03 L 3.84 L (4.70-6.10) M/uL Hgb 12.0 L 11.6 L (14.0-18.0) g/dL Hct 35.4 L 33.7 L (42.0-52.0) % Plt Count 211 231 (130-400) K/uL Neut # (Auto) 12.26 H 12.88 H (1.40-6.50) K/uL Lymph # (Auto) 1.11 L 1.26 (1.20-3.40) K/uL [place] # (Auto) 1.39 H 1.20 H (0.11-0.59) K/uL Eos # (Auto) 0.01 0.04 (0.00-0.50) K/uL Baso # (Auto) 0.02 0.02 (0.00-0.20) K/uL Comprehensive Metabolic Panel 08/28/25 08/29/25 08/29/25 Range/Units 23:04 03:42 10:59 Sodium 124 L 124 L 125 L (136-145) mmol/L Potassium 3.9 3.9 (3.5-5.1) mmol/L Chloride 91 L 92 L (98-107) mmol/L Carbon Dioxide 21 23 (21-32) mmol/L BUN 32 H 32 H (6-23) mg/dl Creatinine 1.46 H 1.32 (0.6-1.4) mg/dl Glucose 357 H* 329 H* (70-99(Fasting)) mg/dl Calcium 9.0 8.7 (8.6-10.3) mg/dl AST 27 (13-39) U/L ALT 23 (7-52) U/L Alkaline Phosphatase 61 (34-104) U/L Total Protein 6.7 (6.0-8.3) gm/dl Albumin 3.1 L (3.4-5.0) gm/dl Intake and Output 08/28/25 08/29/25 08/29/25 22:59 06:59 14:59 Intake Total 1487.5 / 1487.5 Output Total 155 / 155 105 / 105 Balance 1332.5 / 1332.5 -105 / -105 Intake: IV 1187.5 / 1187.5 Magnesium Sulfate / D5w 1 gm In 187.5 / 187.5 100 ml @ 50 mls/hr IV Q2H JOSE Rx#:[id number] Sodium Chloride 0.9% 1,000 ml @ 1000 / 1000 999 mls/hr IV .Q1H1M ONE Rx#: [id number] Oral 300 / 300 Output: Urine Amount (Catheter) 155 / 155 105 / 105 Temp Sensing [place] 155 / 155 105 / 105 Other: Weight 115.3 kg Weight Measurement Method Built in [facility] PG Care Time/CCT Total # of Minutes Spent Total Time Spent with Patient: Total time spent is greater than 50% in coordination of care (as documented) at patient's floor/unit and/or counseling patient: Coding Level of Care Code 44257 IN/OBS CONSULT LVL 4,60M Diagnoses ST elevation (STEMI) myocardial infarction I21.3 Bradycardia R00.1
[2025-08-29] MEDS: LACTATED RINGER'S 1,000 ML IV SCH (12:56)
[2025-08-29] MEDS: ACETAMINOPHEN 325 MG TAB PO PRN (18:11)
[2025-08-29] MEDS: TACROLIMUS 0.5 MG CAP PO SCH (20:11)
[2025-08-29] MEDS: TAMSULOSIN HCL 0.4 MG CAP PO SCH (20:12)
[2025-08-29] MEDS: PREGABALIN 75 MG CAP PO SCH (20:13)
[2025-08-29] MEDS: LACTATED RINGER'S 250 ML IV ONE (21:27)
[2025-08-30 05:16] LABS: Hematocrit (blood only) 31.5 % (42.0-52.0); Hemoglobin 11.0 g/dL (14.0-18.0); Immature Granulocytes # (auto) 0.08 K/uL (0.01-0.20); Immature Granulocytes % (auto) 0.8 %; Mean Corpuscular Hemoglobin 30.1 pg (25.0-34.0); Mean Corpuscular Volume 86.1 fL (80.0-100.0); Platelet Count 220 K/uL (130-400); RDW Standard Deviation 40.5 fL (36.4-46.3); Red Blood Count 3.66 M/uL (4.70-6.10); White Blood Count 10.55 K/ul (4.8-10.8)
[2025-08-30 05:30] LABS: Anion Gap 7.0 (3-11); Blood Urea Nitrogen 30.0 mg/dl (6-23); Calcium 8.5 mg/dl (8.6-10.3); Carbon Dioxide 25.0 mmol/L (21-32); Chloride 91.0 mmol/L (98-107); Creatinine Clr Calc Pharmacy 76.3 ml/min; Glucose 150.0 mg/dl (70-99(Fasting)); Magnesium 2.0 mg/dl (1.7-2.4); Potassium 3.4 mmol/L (3.5-5.1); Sodium 123.0 mmol/L (136-145)
[2025-08-30] MEDS: POTASSIUM CHLORIDE CRTAB 20 MEQ TABCR PO ONE (06:27)
--- NOTE | 2025-08-30 07:29 | Critical Care Progress Note ---
Date of Service August 30, 2025 Assessment & Plan (1) STEMI (ST elevation myocardial infarction): (2) Hypoxic respiratory failure: (3) Bradycardia: (4) Diabetes mellitus with hyperglycemia: (5) Hypertension: (6) Hyperlipidemia: (7) Immunocompromised: (8) Renal transplant recipient: Plan Reason Critically Ill: 59 YOM presents as STEMI alert and taken urgently to the [facility]isting lab[facility] where he received 3 stents to the RCA, required BiPAP for hypoxic respiratory failure as well as placement of TVP for bradycardia in setting of acute STEMI 24-hour events: Hemodynamically stable. Pacing function discontinued at 06 30 this morning due to heart rate in 70s. Recommendation Neuro -no current issues. Patient complaining of pain duty keeping his leg straight and being flat in bed. Should resolve with removal of the TVP and mobilization Cardiac - STEMI, symptomatic bradycardia, acute heart failure. HX: HTN, HLD, CAD. Hemodynamically stable. Continue dual antiplatelet agents. Continue lipid-lowering therapy. Troponin peaked. Could consider beta-blockers but reluctant given the patient's recent bradycardia. IRAIS inhibitors on hold given possible worsening kidney function and history of renal transplant. Defer to nephrology. Anticipate discontinuation of TVP, defer to cardiology Respiratory - Acute hypoxic respiratory failure, resolved GI -no current issues RENAL/LYTES -renal transplant, nephrology managing transplant medications. Slight increase in serum creatinine this morning with concomitant hyponatremia. IV fluids transition to normal saline. -discontinue Stout once TVP discontinued ENDO - DMII uncontrolled, insulin pump. Adequate control HEME -stable anemia. No evidence of ongoing bleeding ID - No concerns at this time for infective etiology LINES/IV ACCESS - Mediport right scl, stout, right femoral TVP DVT PROPHYLAXIS - SCDS, ASA/Prasugrel DISPO: Can likely transition out of intensive care unit once TVP discontinued. Critical care issues resolved and critical care will sign off. Feel free to contact us with questions or concerns Admission and Anticipated Discharge Date Admission Date: August 29, 2025 Subjective Patient seen and examined. EMR reviewed. Discussed with bedside critical care nurse and multidisciplinary rounds. Patient is awake alert and conversant. He is tolerating diet. He is uncomfortable due to having to keep his leg straight due to the temporary pacing wire. He has had he is pacing function pause for over an hour as it appears there was resumption of function. He denies palpitations. No chest pain. No shortness of breath. Review of Systems Review of Systems: All systems reviewed & are unremarkable except as noted in Subjective Physical Exam Constitutional: WD/WN, vitals as above Neck: trachea midline, no thyromegaly Respiratory: normal respiratory effort, lungs clear to auscultation Cardiovascular: RRR, no murmur, no edema Gastrointestinal (Abdomen): normal bowel sounds, soft, nontender, no hepatosplenomegaly Musculoskeletal: Extremities: extremities normal to inspection Skin: no rashes, warm and dry Neurologic: Nonfocal exam Lymphatic: no cervical lymphadenopathy Results & Data Results & Data Vital Signs (Past 12 Hours) Vital Signs Temp Pulse Resp BP Pulse Ox O2 Del Method O2 Del Method 08/30/25 07:00 37.0 C 76 22 155/58 H 96 Nasal Cannula 08/30/25 07:00 Nasal Cannula 08/30/25 06:01 153/62 H 08/30/25 06:00 36.9 C 75 24 92 08/30/25 05:00 36.7 C 76 19 119/67 100 08/30/25 04:41 71 08/30/25 04:31 149/76 H 08/30/25 04:30 36.6 C 76 28 H 97 08/30/25 04:00 158/63 H 08/30/25 04:00 36.7 C 70 23 158/63 H 95 08/30/25 03:01 178/50 H 08/30/25 03:00 36.7 C 75 24 97 08/30/25 02:00 36.7 C 76 22 173/75 H 95 08/30/25 01:01 162/72 H 08/30/25 01:00 36.8 C 75 23 98 08/30/25 00:03 36.8 C 80 28 H 94 08/30/25 00:01 130/62 08/30/25 00:00 36.8 C 71 24 92 08/30/25 00:00 Nasal Cannula 08/29/25 23:44 170/76 H 08/29/25 23:42 36.9 C 75 10 L 92 08/29/25 23:34 189/55 H 08/29/25 23:33 36.9 C 79 24 87 L 08/29/25 23:00 37.0 C 73 25 H 95 08/29/25 22:48 37.1 C 68 24 91 08/29/25 22:46 112/75 08/29/25 22:46 112/75 08/29/25 22:46 112/75 08/29/25 22:46 112/75 08/29/25 22:46 112/75 08/29/25 22:45 37.1 C 62 30 H 93 08/29/25 22:00 37.3 C 81 22 93 08/29/25 21:09 37.6 C H 58 L 24 91 08/29/25 21:09 126/49 L 08/29/25 21:09 126/49 L 08/29/25 21:09 126/49 L 08/29/25 21:09 126/49 L 08/29/25 21:09 126/49 L 08/29/25 21:00 37.6 C H 56 L 31 H 95 08/29/25 20:00 37.9 C H 54 L 24 147/83 H 94 O2 Flow Rate O2 Flow Rate 08/30/25 07:00 2 08/30/25 07:00 2 08/30/25 06:01 08/30/25 06:00 08/30/25 05:00 08/30/25 04:41 08/30/25 04:31 08/30/25 04:30 08/30/25 04:00 08/30/25 04:00 08/30/25 03:01 08/30/25 03:00 08/30/25 02:00 08/30/25 01:01 08/30/25 01:00 08/30/25 00:03 08/30/25 00:01 08/30/25 00:00 08/30/25 00:00 2 08/29/25 23:44 08/29/25 23:42 08/29/25 23:34 08/29/25 23:33 08/29/25 23:00 08/29/25 22:48 08/29/25 22:46 08/29/25 22:46 08/29/25 22:46 08/29/25 22:46 08/29/25 22:46 08/29/25 22:45 08/29/25 22:00 08/29/25 21:09 08/29/25 21:09 08/29/25 21:09 08/29/25 21:09 08/29/25 21:09 08/29/25 21:09 08/29/25 21:00 08/29/25 20:00 Critical Care Results & Data Vital Signs (Past 12 Hours) Vital Signs Temp Pulse Resp BP Pulse Ox O2 Del Method O2 Del Method 08/30/25 07:00 37.0 C 76 22 155/58 H 96 Nasal Cannula 08/30/25 07:00 Nasal Cannula 08/30/25 06:01 153/62 H 08/30/25 06:00 36.9 C 75 24 92 08/30/25 05:00 36.7 C 76 19 119/67 100 08/30/25 04:41 71 08/30/25 04:31 149/76 H 08/30/25 04:30 36.6 C 76 28 H 97 08/30/25 04:00 158/63 H 08/30/25 04:00 36.7 C 70 23 158/63 H 95 08/30/25 03:01 178/50 H 08/30/25 03:00 36.7 C 75 24 97 08/30/25 02:00 36.7 C 76 22 173/75 H 95 08/30/25 01:01 162/72 H 08/30/25 01:00 36.8 C 75 23 98 08/30/25 00:03 36.8 C 80 28 H 94 08/30/25 00:01 130/62 08/30/25 00:00 36.8 C 71 24 92 08/30/25 00:00 Nasal Cannula 08/29/25 23:44 170/76 H 08/29/25 23:42 36.9 C 75 10 L 92 08/29/25 23:34 189/55 H 08/29/25 23:33 36.9 C 79 24 87 L 08/29/25 23:00 37.0 C 73 25 H 95 08/29/25 22:48 37.1 C 68 24 91 08/29/25 22:46 112/75 08/29/25 22:46 112/75 08/29/25 22:46 112/75 08/29/25 22:46 112/75 08/29/25 22:46 112/75 08/29/25 22:45 37.1 C 62 30 H 93 08/29/25 22:00 37.3 C 81 22 93 08/29/25 21:09 37.6 C H 58 L 24 91 08/29/25 21:09 126/49 L 08/29/25 21:09 126/49 L 08/29/25 21:09 126/49 L 08/29/25 21:09 126/49 L 08/29/25 21:09 126/49 L 08/29/25 21:00 37.6 C H 56 L 31 H 95 08/29/25 20:00 37.9 C H 54 L 24 147/83 H 94 O2 Flow Rate O2 Flow Rate 08/30/25 07:00 2 08/30/25 07:00 2 08/30/25 06:01 08/30/25 06:00 08/30/25 05:00 08/30/25 04:41 08/30/25 04:31 08/30/25 04:30 08/30/25 04:00 08/30/25 04:00 08/30/25 03:01 08/30/25 03:00 08/30/25 02:00 08/30/25 01:01 08/30/25 01:00 08/30/25 00:03 08/30/25 00:01 08/30/25 00:00 08/30/25 00:00 2 08/29/25 23:44 08/29/25 23:42 08/29/25 23:34 08/29/25 23:33 08/29/25 23:00 08/29/25 22:48 08/29/25 22:46 08/29/25 22:46 08/29/25 22:46 08/29/25 22:46 08/29/25 22:46 08/29/25 22:45 08/29/25 22:00 08/29/25 21:09 08/29/25 21:09 08/29/25 21:09 08/29/25 21:09 08/29/25 21:09 08/29/25 21:09 08/29/25 21:00 08/29/25 20:00 Lab & Micro Results (Past 24 Hours) RBC 3.66 M/uL (4.70-6.10) L 08/30/25 WBC 10.55 K/ul (4.8-10.8) 08/30/25 Hgb 11.0 g/dL (14.0-18.0) L 08/30/25 Hct 31.5 % (42.0-52.0) L 08/30/25 MCV 86.1 fL (80.0-100.0) 08/30/25 MCH 30.1 pg (25.0-34.0) 08/30/25 MCHC 34.9 g/dL (32.0-36.0) 08/30/25 RDW Standard Deviation 40.5 fL (36.4-46.3) 08/30/25 RDW Coefficient of Variation 12.8 % (11.5-14.5) 08/30/25 Plt Count 220 K/uL (130-400) 08/30/25 MPV 11.6 fL (9.4-12.4) 08/30/25 Neutrophils (%) (Auto) 78.9 % 08/30/25 Lymphocytes (%) (Auto) 8.1 % 08/30/25 Monocytes # (Auto) 1.15 K/uL (0.11-0.59) H 08/30/25 Eosinophils # (Auto) 0.13 K/uL (0.00-0.50) 08/30/25 Immature Granulocyte % (Auto) 0.8 % 08/30/25 Neutrophils # (Auto) 8.33 K/uL (1.40-6.50) H 08/30/25 Lymphocytes # (Auto) 0.85 K/uL (1.20-3.40) L 08/30/25 Monocytes # (Auto) 1.15 K/uL (0.11-0.59) H 08/30/25 Eosinophils # (Auto) 0.13 K/uL (0.00-0.50) 08/30/25 Basophils # (Auto) 0.01 K/uL (0.00-0.20) 08/30/25 Immature Granulocyte # (Auto) 0.08 K/uL (0.01-0.20) 5 Na 123 mmol/L (136-145) L 08/30/25 K 3.4 mmol/L (3.5-5.1) L 08/30/25 Cl 91 mmol/L (98-107) L 08/30/25 CO2 25 mmol/L (21-32) 08/30/25 Anion Gap 7 (3-11) 08/30/25 BUN 30 mg/dl (6-23) H 08/30/25 Creatinine 1.41 mg/dl (0.6-1.4) H 08/30/25 BUN/Creatinine Ratio 21.3 (10-20) H 08/30/25 Glu 150 mg/dl (70-99(Fasting)) H 08/30/25 Ca 8.5 mg/dl (8.6-10.3) L 08/30/25 Mg 2.0 mg/dl (1.7-2.4) 08/30/25 04:24 Calcium Level 8.5 mg/dl (8.6-10.3) L 08/30/25 04:24 I & O Totals 24 Hours 08/29/25 08/30/25 08/31/25 06:59 06:59 06:59 Intake Total 1487.5 / 1487.5 2831.333 / 2831.333 702.667 / 702.667 Output Total 155 / 155 1532 / 1532 Balance 1332.5 / 1332.5 1299.333 / 1299.333 702.667 / 702.667 Cumulative 08/28/25 22:29 thru 08/30/25 07:29 Intake Total 5021.500 Output Total 1687 Balance 3334.500 RT Ventilator Mngmt (Last Documented) Ventilator Ordered Settings Respiratory Rate 22 08/30/25 07:00 Fraction of Inspired Oxygen 40 08/29/25 01:25 Ventilator - PT Measurements Respiratory Rate 22 Coding Level of Care Code 91660 SUB INP/OBS CARE 2/35MIN Diagnoses ST elevation myocardial infarction involving right coronary artery I21.11 Involved coronary artery: right coronary artery Acute respiratory failure with hypoxia J96.01 Chronicity: acute Bradycardia R00.1 Type 2 diabetes mellitus with hyperglycemia, with long-term current use of insulin E11.65; Z79.4 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 insulin use: with jail use Diabetes mellitus type: type 2 Essential hypertension I10 Hypertension type: essential hypertension Hyperlipidemia, unspecified hyperlipidemia type E78.5 Hyperlipidemia type: unspecified Immunocompromised D84.9 Renal transplant recipient Z94.0 (1) STEMI (ST elevation myocardial infarction) Involved coronary artery: right coronary artery Qualified Code(s): I21.11 - ST elevation (STEMI) myocardial infarction involving right coronary artery (2) Hypoxic respiratory failure Chronicity: acute Qualified Code(s): J96.01 - Acute respiratory failure with hypoxia (4) Diabetes mellitus with hyperglycemia 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
[2025-08-30] MEDS: SODIUM CHLORIDE 0.9% 500 ML IV SCH (07:39)
--- NOTE | 2025-08-30 09:18 | Cardiology Progress Note ---
Date of Service August 30, 2025 Assessment & Plan (1) ST elevation (STEMI) myocardial infarction: (2) Hx of kidney transplant: (3) Bradycardia: Plan: 59-year-old male with past medical history of end-stage renal disease related to complications of diabetes and hypertension who had subsequently undergone donor renal transplant at [facility] in September, presented 08/29/25 with 1 week of epigastric discomfort, nauseousness, diarrhea has been found to have an inferior ST segment elevation complicated by bradycardia and third- degree atrioventricular block. Patient underwent emergent cardiac catheterization and implantation of 3 drug- eluting stents to the mid to distal right coronary artery. Residual OM2 stenosis noted. Late presentation, likely had onset of symptoms 1 week prior to arrival. Most recent previous EKG dates back to 06/12/2025 with findings of bifascicular block pattern at that time including right bundle branch block and left anterior fascicular block, QRS duration 136 ms. Patient now presents with third-degree heart block and underwent temporary transvenous pacemaker for heart rate support during PCI. Post PCI echocardiogram attempted 08/29/25 but technically limited as patient was limited to the supine position with temporary pacemaker in place, AV dyssynchrony noted as well as pacing from the right ventricular apex and therefore analysis of the left ventricular regional wall motion is technically limited. Ejection fraction felt to be abnormal and in the range of 35 to 40% on technically limited evaluation. Severe mitral annular calcification observed with mild mitral regurgitation. Compared to the previous echocardiogram performed in April,, the left ventricular ejection fraction was in the range of 65 to 70% at that time : Telemetry reveals conversion from 3rd degree AV block to sinus rhythm with long first degree AV block at 2300 on 08/29/25 with rate in the 70s and cessation of need for temporary pacemaker for heart rate support overnight. EKG performed 08/30/2025 at 9:13 AM and reviewed/interpreted independently: Sinus rhythm at 77 bpm with long first-degree AV block, UT interval 202 ms, nonspecific IVCD, voltage criteria for LVH, residual inferior ST segment elevation over Q waves. - Compared to the previous tracing, the ST segment elevation persist, third- degree AV block has resolved with sinus rhythm long first-degree AV block now noted. * Discontinue right femoral transvenous temporary pacemaker * Continue aspirin, prasugrel, avoiding beta-blockers due to bradycardia. * Avoid ACEI / ARB given tenuous renal status in the setting of h/o kidney transplant and potential consideration of staged PCI of OM2. * Continue rosuvastatin 20 mg daily * Repeat limited echo for reassessment of LVEF now that patient is in sinus rhythm. * No indication for emergent permanent pacemaker at present , however, given baseline conduction system disease, it still at risk for requiring pacemaker as some juncture in the future. * Will revisit option / timing of staged PCI to the OM2 based on renal function. Right femoral vein temporary pacemaker wire removed by the undersigned at the bedside followed by the introducer. Manual pressure held x 10 minutes. Pressure bandage placed. No bleeding observed. Will have patient remain supine for another 30 minutes. Case discussed with Dr Suarez of nephrology for the purpose of coordination of care. Dr Mel alexandra on 08/31/25. I spent a total of 60 minutes on the date of service in preparation, delivery, and documentation of the care provided to this patient, excluding any time spent in the performance of separately billed services. Chela Dodd DO Admission and Anticipated Discharge Date Admission Date: August 29, 2025 Subjective Patient seen in cardiology follow up. Feeling well. No additional epigastric discomfort. Telemetry reveals conversion from 3rd degree AV block to sinus rhythm with long first degree AV block at 2300 on 08/29/25 with rate in the 70s and cessation of need for temporary pacemaker for heart rate support overnight. Review of Systems Review of Systems: All systems reviewed & are unremarkable except as noted in HPI & below Physical Exam Physical Exam: Temp Pulse Resp BP Pulse Ox O2 Del Method O2 Flow Rate 37.2 C 74 24 147/76 H 98 Nasal Cannula 2 08/30/25 08:00 08/30/25 08:00 08/30/25 08:00 08/30/25 08:00 08/30/25 08:00 08/30/25 09:00 08/30/25 08:00 FiO2 40 08/29/25 01:25 General: no acute distress and stated age Eyes: conjunctiva are pink and non-injected, sclera clear Neck: normal jugular venous pulse, no hepatojugular reflux Chest: normal shape and normal respiratory effort Lungs: clear to auscultation and percussion Cardiac Exam: - regular heart sounds, no murmurs, rubs, or gallops, no jugular venous distention Abdomen: abdomen soft, non-tender, no abnormal masses and no hepatosplenomegaly Extremities: no edema and no cyanosis -Transvenous pacemaker noted in the righ t femoral vein, site clean dry and i ntact, no erythema -Right radial artery access site clean d ry and intact without erythema Neuro:awake, conversant, follows commands, no focal motor deficits Psych: appropriate affect and insight. Results & Data Laboratory Results Cardiac Enzymes 08/29/25 08/29/25 Range/Units 10:59 18:02 Troponin I High Sens 35355.7 H* D 22524.3 H* (0-20) pg/ml CBC 08/30/25 Range/Units 04:24 WBC 10.55 (4.8-10.8) K/ul RBC 3.66 L (4.70-6.10) M/uL Hgb 11.0 L (14.0-18.0) g/dL Hct 31.5 L (42.0-52.0) % Plt Count 220 (130-400) K/uL Neut # (Auto) 8.33 H (1.40-6.50) K/uL Lymph # (Auto) 0.85 L (1.20-3.40) K/uL [place] # (Auto) 1.15 H (0.11-0.59) K/uL Eos # (Auto) 0.13 (0.00-0.50) K/uL Baso # (Auto) 0.01 (0.00-0.20) K/uL Comprehensive Metabolic Panel 08/29/25 08/30/25 Range/Units 10:59 04:24 Sodium 125 L 123 L (136-145) mmol/L Potassium 3.4 L (3.5-5.1) mmol/L Chloride 91 L (98-107) mmol/L Carbon Dioxide 25 (21-32) mmol/L BUN 30 H (6-23) mg/dl Creatinine 1.41 H (0.6-1.4) mg/dl Glucose 150 H (70-99(Fasting)) mg/dl Calcium 8.5 L (8.6-10.3) mg/dl PG Care Time/CCT Total # of Minutes Spent Total Time Spent with Patient: Total time spent is greater than 50% in coordination of care (as documented) at patient's floor/unit and/or counseling patient: Coding Level of Care Code 00503 SUB INP/OBS CARE 3/50MIN Diagnoses ST elevation myocardial infarction involving right coronary artery I21.11 Involved coronary artery: right coronary artery Hx of kidney transplant Z94.0 Bradycardia R00.1 (1) ST elevation (STEMI) myocardial infarction Involved coronary artery: right coronary artery Qualified Code(s): I21.11 - ST elevation (STEMI) myocardial infarction involving right coronary artery
--- NOTE | 2025-08-30 10:24 | Hospitalist Progress Note ---
Date of Service August 30, 2025 Assessment & Plan (1) ST elevation (STEMI) myocardial infarction: Plan: 59M with PMH CAD, IDDM, pAF, HTN HLD, MATT on cpap, kidney transplant on immunosuppresive therapy, anemia, prior tobacco use who presents with STEMI #STEMI -S/p DARCI x 3 to RCA -Compete heart block secondary to STEMI -S/p temporary pacer, removed 08/30 Plan -Continue DAPT per cardio -BB contraindicated due to bradycardia -High intensity statin -TTE -Continue cardiac monitoring -Transfer to PCU today #Acute hypoxic resp failure -CXR reviewed, clear -Resolved, now on 2L NC -Lungs are clear -Wean off o2 today #Fever -Fever resolved 08/29 -No clear source of infection -ROS neg for source of infection -WBC now normal -Likely reactive Plan -If persistent, check blood cultures and start empiric abx -Observe off abx for now #IDDM -Uses insulin pump at home -BG in 300s currently -A1c 9.0 -He states his BG has been poorly controlled ever since he started a new anti rejection medication His marker delivery is aware of this and he will f/u with them as OP #Acute on Chronic hyponatremia -Na 124 on admission, baseline around 128 -Asymptomatic -Monitor -Avoid rapid overcorrection #Hypomagnesemia -Resolved #Hypokalemia -Replace and follow #History of ESRD s/p kidney transplant -Cr at baseline, 1.3-1.5 -Nephrology consulted, appreciate input -Continue home immunosuppressive therapy #pAfib -Not on home AC #HTN -Defer BP management to cardio for GDMT ISO STEMI I spent a total of 55 minutes coordinating, documenting, and providing care for this patient excluding time spent in the performance of separately billed services. This included personally reviewing all current laboratories and imaging studies, medical reconciliation, outpatient chart review and discussion with specialists Admission and Anticipated Discharge Date Admission Date: August 29, 2025 Subjective Feeling well this AM seen in ICU. he has no complaints this am. Patient denies F/C, CP, palpitations, SOB, dyspnea, abd pain, N/V/D D/w RN at bedside Physical Exam Physical Exam: Vitals and labs reviewed General: Well appearing, NAD HEENT: EOMI, PERRLA Neck: Supple Cardiac: RRR Lungs: CTA no rhonchi wheezing or rales Abd: S NT ND BS positive : [place] MSK: Full ROM. No obvious deformities Ext: No Edema cyanosis Skin: Warm, Dry Neuro: AOx3 No focal deficits. Psych: Normal Mood Results & Data Results & Data Vital Signs (Past 12 Hours) Vital Signs Temp Pulse Resp BP Pulse Ox O2 Del Method O2 Del Method 08/30/25 10:00 37.2 C 79 20 135/72 95 Room Air 08/30/25 09:00 37.3 C 76 24 158/60 H 94 Room Air 08/30/25 09:00 Nasal Cannula 08/30/25 08:00 37.2 C 74 24 147/76 H 98 Nasal Cannula 08/30/25 07:00 37.0 C 76 22 155/58 H 96 Nasal Cannula 08/30/25 07:00 Nasal Cannula 08/30/25 06:01 153/62 H 08/30/25 06:00 36.9 C 75 24 92 08/30/25 05:00 36.7 C 76 19 119/67 100 08/30/25 04:41 71 08/30/25 04:31 149/76 H 08/30/25 04:30 36.6 C 76 28 H 97 08/30/25 04:00 158/63 H 08/30/25 04:00 36.7 C 70 23 158/63 H 95 08/30/25 03:01 178/50 H 08/30/25 03:00 36.7 C 75 24 97 08/30/25 02:00 36.7 C 76 22 173/75 H 95 08/30/25 01:01 162/72 H 08/30/25 01:00 36.8 C 75 23 98 08/30/25 00:03 36.8 C 80 28 H 94 08/30/25 00:01 130/62 08/30/25 00:00 36.8 C 71 24 92 08/30/25 00:00 Nasal Cannula 08/29/25 23:44 170/76 H 08/29/25 23:42 36.9 C 75 10 L 92 08/29/25 23:34 189/55 H 08/29/25 23:33 36.9 C 79 24 87 L 08/29/25 23:00 37.0 C 73 25 H 95 08/29/25 22:48 37.1 C 68 24 91 08/29/25 22:46 112/08/29/25 22:46 112/08/29/25 22:46 112/08/29/25 22:46 112/08/29/25 22:46 112/08/29/25 22:45 37.1 C 62 30 H 93 O2 Flow Rate O2 Flow Rate 08/30/25 10:00 08/30/25 09:00 08/30/25 09:00 08/30/25 08:00 2 08/30/25 07:00 2 08/30/25 07:00 2 08/30/25 06:01 08/30/25 06:00 08/30/25 05:00 08/30/25 04:41 08/30/25 04:31 08/30/25 04:30 08/30/25 04:00 08/30/25 04:00 08/30/25 03:01 08/30/25 03:00 08/30/25 02:00 08/30/25 01:01 08/30/25 01:00 08/30/25 00:03 08/30/25 00:01 08/30/25 00:00 08/30/25 00:00 2 08/29/25 23:44 08/29/25 23:42 08/29/25 23:34 08/29/25 23:33 08/29/25 23:00 08/29/25 22:48 08/29/25 22:46 08/29/25 22:46 08/29/25 22:46 08/29/25 22:46 08/29/25 22:46 08/29/25 22:45 Laboratory Results Abnormal lab results 08/29/25 08/29/25 08/30/25 Range/Units 10:59 18:02 04:24 RBC 3.66 L (4.70-6.10) M/uL Hgb 11.0 L (14.0-18.0) g/dL Hct 31.5 L (42.0-52.0) % Neut # (Auto) 8.33 H (1.40-6.50) K/uL Lymph # (Auto) 0.85 L (1.20-3.40) K/uL [place] # (Auto) 1.15 H (0.11-0.59) K/uL Sodium 125 L 123 L (136-145) mmol/L Potassium 3.4 L (3.5-5.1) mmol/L Chloride 91 L (98-107) mmol/L BUN 30 H (6-23) mg/dl Creatinine 1.41 H (0.6-1.4) mg/dl BUN/Creatinine Ratio 21.3 H (10-20) Glucose 150 H (70-99(Fasting)) mg/dl POC Glucose (70-99) mg/dl Calcium 8.5 L (8.6-10.3) mg/dl Troponin I High Sens 75826.7 H* D 39317.3 H* (0-20) pg/ml 08/30/25 Range/Units 06:56 RBC (4.70-6.10) M/uL Hgb (14.0-18.0) g/dL Hct (42.0-52.0) % Neut # (Auto) (1.40-6.50) K/uL Lymph # (Auto) (1.20-3.40) K/uL [place] # (Auto) (0.11-0.59) K/uL Sodium (136-145) mmol/L Potassium (3.5-5.1) mmol/L Chloride (98-107) mmol/L BUN (6-23) mg/dl Creatinine (0.6-1.4) mg/dl BUN/Creatinine Ratio (10-20) Glucose (70-99(Fasting)) mg/dl POC Glucose 161 H (70-99) mg/dl Calcium (8.6-10.3) mg/dl Troponin I High Sens (0-20) pg/ml (1) ST elevation (STEMI) myocardial infarction Involved coronary artery: right coronary artery Qualified Code(s): I21.11 - ST elevation (STEMI) myocardial infarction involving right coronary artery
--- NOTE | 2025-08-30 10:35 | Electrocardiogram Report ---
Test Reason : Blood Pressure : */* mmHG Vent. Rate : 77 BPM Atrial Rate : 77 BPM P-R Int : 282 ms QRS Dur : 130 ms QT Int : 418 ms P-R-T Axes : 52 -20 80 degrees QTcB Int : 473 ms Sinus rhythm with 1st degree A-V block Non-specific intra-ventricular conduction block Minimal voltage criteria for LVH, may be normal variant Inferior infarct , age undetermined Lateral injury pattern ACUTE UT / STEMI Abnormal ECG When compared with ECG of 29-Aug-2025 01:27, Sinus rhythm has replaced Electronic ventricular pacemaker Vent. rate has increased by 27 bpm Confirmed by Amadou Dickey ([id number]) on 08/30/2025 10:35:23 AM Referred By: REFERRED SELF Confirmed By: Amadou Dickey
--- NOTE | 2025-08-30 13:09 | XCELERA ---
[id number]
--- NOTE | 2025-08-30 13:25 | XRay Report ---
XR chest 1V portable CLINICAL HISTORY: increased SOB COMPARISON STUDY: 08/29/2025 FINDINGS: Stable right chest port. Stable cardiomegaly with mild pulmonary vascular congestion. No co nsolidation or pleural effusion seen. No pneumothorax. IMPRESSION: Mild CHF. ACT 112: Negative or not required by law. Electronically signed by: Tushar Manley M.D. 08/30/2025 1:24 PM
--- NOTE | 2025-08-30 15:10 | Nephrology Progress Note ---
Date of Service August 30, 2025 Assessment & Plan (1) Renal transplant recipient: Plan: Patient is status post kidney transplant in September 2018 previously maintained on belatacept and mycophenolate. This was interrupted due to insurance coverage. He is again due to start belatacept on 09/02/2025. Will continue current immunosuppression which is mycophenolate 360 mg twice daily and Prograf 1 mg in the morning and 0.5 mg in the evening. Graft function is stable with a creatinine down to 1.3. He has hyponatremia. Recommend the improved blood sugar control. Urine output is reduced. - Stop IV fluids - no need for IV Lasix unless patient becomes hypoxic -Daily BMP. -Avoid contrast (2) Immunocompromised: Plan: will continue CellCept and Prograf as above. Patient is planned for on belatacept infusion after discharge. (3) ST elevation (STEMI) myocardial infarction: Plan: Patient is status post cardiac catheterization and stenting to the RCA. TVP discontinued. Echocardiogram showed EF of 45-50% with improvement in regional wall motion abnormalities in the left ventricule Admission and Anticipated Discharge Date Admission Date: August 29, 2025 Subjective Seen for acute kidney injury. He feels better today. No shortness of breath. He had echocardiogram which showed EF of 40-50% and normal IVC. Review of Systems 2 Review of Systems: All other systems were reviewed and negative except as noted in HPI Physical Exam 2 Physical Exam: General exam: Appears comfortable, no acute distress HEENT: Pupils are equal and reactive to light Neck: No JVD, neck is supple trachea is midline Respiratory system: Clear breath sounds bilaterally. Gastrointestinal: Abdomen is soft, non distended, non tender, bowel sounds are present CVS: Regular rate and rhythm. No murmurs, rubs or gallops Musculoskeletal: No joint or muscle tenderness Extremities: Non tender, no edema, peripheral pulses are present Neuro: Oriented, no tremors, no focal neurological deficits Skin: No rashes Results & Data Vital Signs (Past 12 Hours) Vital Signs Temp Pulse Resp BP Pulse Ox O2 Del Method O2 Flow Rate 08/30/25 12:00 86 26 H 130/69 95 Room Air 08/30/25 11:00 37.2 C 83 26 H 138/76 96 Room Air 08/30/25 10:03 37.3 C 80 26 H 135/72 97 Room Air 08/30/25 10:00 37.2 C 79 20 135/72 95 Room Air 08/30/25 09:00 37.3 C 76 24 158/60 H 94 Room Air 08/30/25 09:00 Nasal Cannula 08/30/25 08:00 37.2 C 74 24 147/76 H 98 Nasal Cannula 2 08/30/25 07:00 37.0 C 76 22 155/58 H 96 Nasal Cannula 2 08/30/25 07:00 Nasal Cannula 2 08/30/25 06:01 153/62 H 08/30/25 06:00 36.9 C 75 24 92 08/30/25 05:00 36.7 C 76 19 119/67 100 08/30/25 04:41 71 08/30/25 04:31 149/76 H 08/30/25 04:30 36.6 C 76 28 H 97 08/30/25 04:00 158/63 H 08/30/25 04:00 36.7 C 70 23 158/63 H 95 Laboratory Results 08/30/25 04:24 08/30/25 04:24 WBC 10.55 RBC 3.66 L MCV 86.1 MCH 30.1 MCHC 34.9 RDW Std Deviation 40.5 RDW Coeff of Dandre 12.8 Plt Count 220 MPV 11.6 (3) ST elevation (STEMI) myocardial infarction Involved coronary artery: right coronary artery Qualified Code(s): I21.11 - ST elevation (STEMI) myocardial infarction involving right coronary artery
[2025-08-30 15:40] LABS: Chlamydia pneumoniae PCR Not Detected (NotDetected); Coronavirus 229E PCR Not Detected (NotDetected); Coronavirus CoV-2 (COVID19)PCR Not Detected (NotDetected); Coronavirus HKU1 PCR Not Detected (NotDetected); Coronavirus NL63 PCR Not Detected (NotDetected); Coronavirus OC43PCR Not Detected (NotDetected); Human Metapneumovirus PCR Not Detected (NotDetected); Parainfluenza Virus 1 PCR Not Detected (NotDetected); Parainfluenza Virus 2 PCR Not Detected (NotDetected); Parainfluenza Virus 3 PCR Not Detected (NotDetected); Parainfluenza Virus 4 PCR Not Detected (NotDetected); Respiratory Syncytial VirusPCR Not Detected (NotDetected); Rhinovirus/Enterovirus PCR DETECTED (NotDetected)
[2025-08-30] MEDS: CHLORASEPTIC (PHENOL) 1.4% SOLN 180 ML BTL MT PRN (17:11)
[2025-08-31 06:04] LABS: Hematocrit (blood only) 32.3 % (42.0-52.0); Hemoglobin 11.1 g/dL (14.0-18.0); Mean Corpuscular Hemoglobin 29.8 pg (25.0-34.0); Mean Corpuscular Volume 86.6 fL (80.0-100.0); Platelet Count 261 K/uL (130-400); RDW Standard Deviation 40.9 fL (36.4-46.3); Red Blood Count 3.73 M/uL (4.70-6.10); White Blood Count 10.20 K/ul (4.8-10.8)
[2025-08-31 06:19] LABS: Anion Gap 6.0 (3-11); Blood Urea Nitrogen 26.0 mg/dl (6-23); Calcium 8.5 mg/dl (8.6-10.3); Carbon Dioxide 25.0 mmol/L (21-32); Chloride 97.0 mmol/L (98-107); Creatinine Clr Calc Pharmacy 88.4 ml/min; Glucose 140.0 mg/dl (70-99(Fasting)); Magnesium 1.9 mg/dl (1.7-2.4); Potassium 4.3 mmol/L (3.5-5.1); Sodium 128.0 mmol/L (136-145)
--- NOTE | 2025-08-31 08:38 | Cardiology Progress Note ---
Date of Service August 31, 2025 Assessment & Plan (1) ST elevation (STEMI) myocardial infarction: (2) Hx of kidney transplant: (3) Bradycardia: Plan: 59-year-old male with past medical history of end-stage renal disease related to complications of diabetes and hypertension who had subsequently undergone donor renal transplant at [facility] [place] in September, presented 08/29/25 with 1 week of epigastric discomfort, nauseousness, diarrhea has been found to have an inferior ST segment elevation complicated by bradycardia and third- degree atrioventricular block. Patient underwent emergent cardiac catheterization and implantation of 3 drug- eluting stents to the mid to distal right coronary artery. Residual OM2 stenosis noted. Late presentation, likely had onset of symptoms 1 week prior to arrival. Most recent previous EKG dates back to 06/12/2025 with findings of bifascicular block pattern at that time including right bundle branch block and left anterior fascicular block, QRS duration 136 ms. Patient now presents with third-degree heart block and underwent temporary transvenous pacemaker for heart rate support during PCI. Post PCI echocardiogram attempted 08/29/25 but technically limited as patient was limited to the supine position with temporary pacemaker in place, AV dyssynchrony noted as well as pacing from the right ventricular apex and therefore analysis of the left ventricular regional wall motion is technically limited. Ejection fraction felt to be abnormal and in the range of 35 to 40% on technically limited evaluation. Severe mitral annular calcification observed with mild mitral regurgitation. Compared to the previous echocardiogram performed in April,, the left ventricular ejection fraction was in the range of 65 to 70% at that time : Telemetry reveals conversion from 3rd degree AV block to sinus rhythm with long first degree AV block at 2300 on 08/29/25 with rate in the 70s and cessation of need for temporary pacemaker for heart rate support overnight. EKG performed 08/30/2025 at 9:13 AM: Sinus rhythm at 77 bpm with long first- degree AV block, MN interval 202 ms, nonspecific IVCD, voltage criteria for LVH, residual inferior ST segment elevation over Q waves. - Compared to the previous tracing, the ST segment elevation persist, third- degree AV block has resolved with sinus rhythm long first-degree AV block now noted. 08/30/25: Right femoral vein temporary pacemaker wire removed. Repeat limited ECHO performed 08/30/25 with left ventricular ejection fraction 45 to 50% with moderate sized inferior and posterior WMA with hypokinesis to akinesis, mildly reduced left ventricle systolic function. Plan/Recommendations * Remains stable and asymptomatic from a cardiac standpoint * SR with 1st degree AV block and no high-grade AV block or significant pauses per 24hr telemetry review * Continue DAPT as prescribed with prasugrel 10 mg QAM and ASA 81 mg QAM * Continue rosuvastatin 20 mg daily * Avoid AV hollie blockers given bradycardia and underlying conduction system disease * Avoid ACEI / ARB given tenuous renal status in the setting of h/o kidney transplant and potential consideration of staged PCI of OM2. * Continue to monitor renal function and plan to revisit option / timing of staged PCI to the OM2 on Tuesday (09/02) * No indication for permanent pacemaker at this time, however, given baseline conduction system disease, patient remains at risk for requiring pacemaker as some juncture in the future. Would consider 14-day Zio monitor upon discharge home to monitor for recurrent high-grade AV block. Case discussed and coordinated with Dr. Leal. Please see Dr. Leal notes for further recommendations. I spent a total of 30 minutes coordinating, documenting, and providing care for this patient excluding time spent in the performance of separately billed services or time spent by another provider/QHP. DOLLY Butterfield Department of Cardiology Admission and Anticipated Discharge Date Admission Date: August 29, 2025 Supervising Physician Co-Signing Physician Notes I spent a total of 30 minutes on the date of service in preparation, delivery, and documentation of the care provided to this patient, excluding any time spent in the performance of separately billed services. I have personally performed a history and physical examination on the patient. I have reviewed the advance practitioner's documentation, and I agree with, and take responsibility for the plan of care. Subjective Seen by cardiology today for examination and follow-up. Sitting comfortably in chair on room air. Dyspnea on exertion with ambulating to bathroom otherwise fee ling well from a cardiac standpoint. Denies chest pressure, pain, tachy palpitations, lightheadedness, dizziness, near syncope, syncope, orthopnea, PND, or worsening edema. Chart, medications, and telemetry personally reviewed. Review of Systems Review of Systems: See HPI for pertinent positives. All others negative other than those noted in the HPI. CONSTITUTIONAL: No change in weight, No weakness, No fatigue, No fevers, No sweats or chills. HEENT: No visual changes, No epistaxis, No bleeding gums, No dysphagia, PULMONARY: No cough, sputum, or hemoptysis, No wheezing, No shortness of breath, and No recent change in breathing. CARDIOVASCULAR: +dyspnea on exertion. No chest pain, No edema, No palpitations, No syncope, No claudication, No calf pain. GASTROINTESTINAL: No change in appetite, No abdominal pain, No change in bowel habits, No significant heartburn, No nausea, No vomiting, No diarrhea, No constipation, No blood in stools or black tarry stools, No dysphagia. HEMATOLOGIC: No abnormal bleeding and No bruising. NEUROLOGICAL: No falls, No dizziness, No lightheadedness, Normal balance, No headaches, and No weakness. PSYCH: No sleep disturbances, No mood changes. Physical Exam Physical Exam: Vital signs within normal limits as above. General: Well developed and nourished. No acute distress. A+Ox3. HEENT: Normocephalic. Atraumatic. EOMI. Conjunctiva and sclera clear. NECK: Trachea midline. No thyromegaly. No carotid bruits. No JVD. Carotid upstrokes are brisk. Heart: RRR. S1 and S2 noted. No murmur. No rubs or gallops. PMI non displaced. Lungs: No acute respiratory distress. Clear to auscultation. No wheezes.No rhonchi. No rales. Abdomen: Normal bowel sounds. Soft. Nontender. No abdominal bruits. Extremities: Normal capillary refill. No edema. No clubbing or cyanosis. Skin: Warm and dry. NEURO: No focal deficits. PSYCH: Appropriate affect and insight. Results & Data Vital Signs (Past 12 Hours) Vital Signs Temp Pulse Pulse Resp BP BP Pulse Ox 08/31/25 07:54 36.7 C 72 18 146/80 H 96 08/31/25 03:06 36.8 C 85 18 178/82 H 96 08/30/25 23:34 81 08/30/25 23:11 36.9 C 88 18 169/62 H 96 08/30/25 23:08 O2 Del Method 08/31/25 07:54 Room Air 08/31/25 03:06 Room Air 08/30/25 23:34 08/30/25 23:11 Room Air 08/30/25 23:08 Room Air Laboratory Results CBC 08/31/25 Range/Units 05:36 WBC 10.20 (4.8-10.8) K/ul RBC 3.73 L (4.70-6.10) M/uL Hgb 11.1 L (14.0-18.0) g/dL Hct 32.3 L (42.0-52.0) % Plt Count 261 (130-400) K/uL Comprehensive Metabolic Panel 08/31/25 Range/Units 05:36 Sodium 128 L (136-145) mmol/L Potassium 4.3 D (3.5-5.1) mmol/L Chloride 97 L (98-107) mmol/L Carbon Dioxide 25 (21-32) mmol/L BUN 26 H (6-23) mg/dl Creatinine 1.23 (0.6-1.4) mg/dl Glucose 140 H (70-99(Fasting)) mg/dl Calcium 8.5 L (8.6-10.3) mg/dl Intake and Output 08/30/25 08/31/25 08/31/25 22:59 06:59 14:59 Intake Total 875 / 3277.667 710 / 3277.667 Output Total 201 / 2282 1125 / 2282 Balance 674 / 995.667 -415 / 995.667 Intake: Oral 875 / 2075 710 / 2075 Output: Urine 200 / 1425 1125 / 1425 # Bowel Movements 1 / 2 Other: # Unmeasured Voids 1 Weight 115.4 kg Weight Measurement Method Standing Scale Diagnostic Findings ECHO 08/30/25 Moderate sized inferior and posterior wall motion abnormality with hypokinesis to akinesis of the segments Left ventricular systolic function is mildly reduced LVEF = 45-50% PG Care Time/CCT Total # of Minutes Spent Total Time Spent with Patient: Total time spent is greater than 50% in coordination of care (as documented) at patient's floor/unit and/or counseling patient: Coding [place] [address] SUB INP/OBS CARE 3/50MIN Patient Type Established Medical Decision Making High Complexity Diagnoses ST elevation myocardial infarction involving right coronary artery I21.11 Involved coronary artery: right coronary artery Hx of kidney transplant Z94.0 Bradycardia R00.1 Time Spent (min) 30 (1) ST elevation (STEMI) myocardial infarction Involved coronary artery: right coronary artery Qualified Code(s): I21.11 - ST elevation (STEMI) myocardial infarction involving right coronary artery
--- NOTE | 2025-08-31 10:43 | Nephrology Progress Note ---
Date of Service August 31, 2025 Assessment & Plan (1) Renal transplant recipient: Plan: Patient is status post kidney transplant in September 2018 previously maintained on belatacept and mycophenolate. This was interrupted due to insurance coverage. He is again due to start belatacept on 09/02/2025. Will continue current immunosuppression which is mycophenolate 360 mg twice daily and Prograf 1 mg in the morning and 0.5 mg in the evening. Graft function is stable with a creatinine down to 1.2. He has hyponatremia which is improving. Discussed with patient and . they wanted to know when to stop tacrolimus. Pr Dr. Rice patient should stop tacrolimus after the nicholas infusion. Last tacrolimus dose should be on 09/02/2025. Recommend improved blood sugar control. - no need for IV Lasix unless patient becomes hypoxic -Daily BMP. -Avoid contrast From renal standpoint, he can be discharged (2) Immunocompromised: Plan: will continue CellCept and Prograf as above. Patient is planned for on belatacept infusion after discharge. (3) ST elevation (STEMI) myocardial infarction: Plan: Patient is status post cardiac catheterization and stenting to the RCA. Echocardiogram showed EF of 45-50% with improvement in regional wall motion abnormalities in the left ventricle Admission and Anticipated Discharge Date Admission Date: August 29, 2025 Subjective Seen for Renal transplant. He had STEMI s/p stents. he is better now. No SOB or leg swelling. at bedside. She wants to know when to stop FK after getting Nicholas on Tuesday Review of Systems 2 Review of Systems: All other systems were reviewed and negative except as noted in HPI Physical Exam 2 Physical Exam: General exam: Appears comfortable, no acute distress HEENT: Pupils are equal and reactive to light Neck: No JVD, neck is supple trachea is midline Respiratory system: Clear breath sounds bilaterally. Gastrointestinal: Abdomen is soft, non distended, non tender, bowel sounds are present CVS: Regular rate and rhythm. No murmurs, rubs or gallops Musculoskeletal: No joint or muscle tenderness Extremities: Non tender, no edema, peripheral pulses are present Neuro: Oriented, no tremors, no focal neurological deficits Skin: No rashes Results & Data Vital Signs (Past 12 Hours) Vital Signs Temp Pulse Pulse Resp BP BP Pulse Ox 08/31/25 07:54 36.7 C 72 18 146/80 H 96 08/31/25 03:06 36.8 C 85 18 178/82 H 96 08/30/25 23:34 81 08/30/25 23:11 36.9 C 88 18 169/62 H 96 08/30/25 23:08 O2 Del Method 08/31/25 07:54 Room Air 08/31/25 03:06 Room Air 08/30/25 23:34 08/30/25 23:11 Room Air 08/30/25 23:08 Room Air Laboratory Results 08/31/25 05:36 08/31/25 05:36 WBC 10.20 RBC 3.73 L MCV 86.6 MCH 29.8 MCHC 34.4 RDW Std Deviation 40.9 RDW Coeff of Dandre 13.0 Plt Count 261 MPV 11.1 (3) ST elevation (STEMI) myocardial infarction Involved coronary artery: right coronary artery Qualified Code(s): I21.11 - ST elevation (STEMI) myocardial infarction involving right coronary artery
--- NOTE | 2025-08-31 12:01 | Hospitalist Progress Note ---
Date of Service August 31, 2025 Assessment & Plan (1) ST elevation (STEMI) myocardial infarction: Plan: 59M with PMH CAD, IDDM, pAF, HTN HLD, MATT on cpap, kidney transplant on immunosuppresive therapy, anemia, prior tobacco use who presents with STEMI #STEMI -S/p DARCI x 3 to RCA -Compete heart block secondary to STEMI -S/p temporary pacer, removed 08/30 -TTE showing EF 45% Plan -Continue DAPT per cardio -BB contraindicated due to bradycardia -High intensity statin -Cardio to decide on PCI to OM2 on tuesday -Continue cardiac monitoring #Rhinovirus -Symptomatic management #IDDM -Uses insulin pump at home -A1c 9.0 -He states his BG has been poorly controlled ever since he started a new anti rejection medication His head of history is aware of this and he will f/u with them as OP #Acute on Chronic hyponatremia -Na 124 on admission, baseline around 128 -Asymptomatic -Monitor -Avoid rapid overcorrection #Hypomagnesemia -Resolved #Hypokalemia -Replace and follow #History of ESRD s/p kidney transplant -Cr at baseline, 1.3-1.5 -Nephrology consulted, appreciate input -Continue home immunosuppressive therapy #pAfib -Not on home AC #HTN -Defer BP management to cardio for GDMT ISO STEMI I spent a total of 51 minutes coordinating, documenting, and providing care for this patient excluding time spent in the performance of separately billed services. This included personally reviewing all current laboratories and imaging studies, medical reconciliation, outpatient chart review and discussion with specialists Admission and Anticipated Discharge Date Admission Date: August 29, 2025 Subjective Feeling well today. his main complaint is cough and sore throat. Patient denies F/C, CP, palpitations, SOB, dyspnea, abd pain, N/V/D. d/w in detail D/w cardio SAFIA Physical Exam Physical Exam: Vitals and labs reviewed General: Well appearing, NAD HEENT: EOMI, PERRLA Neck: Supple Cardiac: RRR Lungs: CTA no rhonchi wheezing or rales Abd: S NT ND BS positive : Sutton MSK: Full ROM. No obvious deformities Ext: No Edema cyanosis Skin: Warm, Dry Neuro: AOx3 No focal deficits. Psych: Normal Mood Results & Data Results & Data Vital Signs (Past 12 Hours) Vital Signs Temp Pulse Pulse Resp BP BP Pulse Ox 08/31/25 11:07 36.8 C 73 16 156/89 H 97 08/31/25 09:00 08/31/25 07:54 36.7 C 72 18 146/80 H 96 08/31/25 03:48 84 08/31/25 03:06 36.8 C 85 18 178/82 H 96 O2 Del Method 08/31/25 11:07 Room Air 08/31/25 09:00 Room Air 08/31/25 07:54 Room Air 08/31/25 03:48 08/31/25 03:06 Room Air Laboratory Results Abnormal lab results 08/30/25 08/31/25 08/31/25 Range/Units 14:31 05:36 07:53 RBC 3.73 L (4.70-6.10) M/uL Hgb 11.1 L (14.0-18.0) g/dL Hct 32.3 L (42.0-52.0) % Sodium 128 L (136-145) mmol/L Chloride 97 L (98-107) mmol/L BUN 26 H (6-23) mg/dl BUN/Creatinine Ratio 21.1 H (10-20) Glucose 140 H (70-99(Fasting)) mg/dl POC Glucose 136 H (70-99) mg/dl Calcium 8.5 L (8.6-10.3) mg/dl Entero/Rhino (PCR) DETECTED A (NotDetected) (1) ST elevation (STEMI) myocardial infarction Involved coronary artery: right coronary artery Qualified Code(s): I21.11 - ST elevation (STEMI) myocardial infarction involving right coronary artery
[2025-08-31] MEDS: COUGH DROP (SUGAR FREE) LOZ 24 LOZ/1 BOX BUCCAL PRN (13:02)
[2025-09-01] MEDS ORDERED: ATROPINE SULFATE 0.1 MG/ML 10ML SYR IV PRN (00:13)
[2025-09-01] MEDS: MAGNESIUM SULFATE / D5W 1 GM/100 ML BAG IV ONE (00:29)
--- NOTE | 2025-09-01 08:10 | Cardiology Progress Note ---
Date of Service September 01, 2025 Assessment & Plan (1) ST elevation (STEMI) myocardial infarction: (2) Hx of kidney transplant: (3) Bradycardia: Plan: 59-year-old male with past medical history of end-stage renal disease related to complications of diabetes and hypertension who had subsequently undergone donor renal transplant at [facility] [place] in September, presented 08/29/25 with 1 week of epigastric discomfort, nauseousness, diarrhea has been found to have an inferior ST segment elevation complicated by bradycardia and third- degree atrioventricular block. Patient underwent emergent cardiac catheterization and implantation of 3 drug- eluting stents to the mid to distal right coronary artery. Residual OM2 stenosis noted. Late presentation, likely had onset of symptoms 1 week prior to arrival. Most recent previous EKG dates back to 06/12/2025 with findings of bifascicular block pattern at that time including right bundle branch block and left anterior fascicular block, QRS duration 136 ms. Patient now presents with third-degree heart block and underwent temporary transvenous pacemaker for heart rate support during PCI. Post PCI echocardiogram attempted 08/29/25 but technically limited as patient was limited to the supine position with temporary pacemaker in place, AV dyssynchrony noted as well as pacing from the right ventricular apex and therefore analysis of the left ventricular regional wall motion is technically limited. Ejection fraction felt to be abnormal and in the range of 35 to 40% on technically limited evaluation. Severe mitral annular calcification observed with mild mitral regurgitation. Compared to the previous echocardiogram performed in April,, the left ventricular ejection fraction was in the range of 65 to 70% at that time : Telemetry reveals conversion from 3rd degree AV block to sinus rhythm with long first degree AV block at 2300 on 08/29/25 with rate in the 70s and cessation of need for temporary pacemaker for heart rate support overnight. EKG performed 08/30/2025 at 9:13 AM: Sinus rhythm at 77 bpm with long first- degree AV block, DE interval 202 ms, nonspecific IVCD, voltage criteria for LVH, residual inferior ST segment elevation over Q waves. - Compared to the previous tracing, the ST segment elevation persist, third- degree AV block has resolved with sinus rhythm long first-degree AV block now noted. 08/30/25: Right femoral vein temporary pacemaker wire removed. Repeat limited ECHO performed 08/30/25 with left ventricular ejection fraction 45 to 50% with moderate sized inferior and posterior WMA with hypokinesis to akinesis and mildly reduced left ventricle systolic function. Plan/Recommendations: * Remains stable and asymptomatic from a cardiac standpoint with no recurrent anginal symptoms * NSR with rates in 70-80s with blocked PACs and 2-3 beat runs of PVCs noted upon telemetry overnight. No recurrent high-grade AV block. * Continue DAPT as prescribed with prasugrel 10 mg QAM and ASA 81 mg QAM * Continue rosuvastatin 20 mg daily * Avoid AV hollie blockers given bradycardia and underlying conduction system disease * Avoid ACEI / ARB given tenuous renal status in the setting of h/o kidney transplant and potential consideration of staged PCI of OM2. * Continue to monitor renal function and plan to revisit option / timing of staged PCI to the OM2 on Tuesday (09/02) with union organizer * No indication for permanent pacemaker at this time, however, given baseline conduction system disease, patient remains at risk for requiring pacemaker as some juncture in the future. Would consider 14-day Zio monitor upon discharge home to monitor for recurrent high-grade AV block. * Continue to monitor on telemetry Case discussed and coordinated with Dr. Leal. Please see Dr. Leal notes for further recommendations. I spent a total of 30 minutes coordinating, documenting, and providing care for this patient excluding time spent in the performance of separately billed services or time spent by another provider/QHP. DOLLY Butterfield Department of Cardiology Admission and Anticipated Discharge Date Admission Date: August 29, 2025 Supervising Physician Co-Signing Physician Notes I spent a total of 30 minutes on the date of service in preparation, delivery, and documentation of the care provided to this patient, excluding any time spent in the performance of separately billed services. I have personally performed a history and physical examination on the patient. I have reviewed the advance practitioner's documentation, and I agree with, and take responsibility for the plan of care. Subjective Seen by cardiology today for examination and follow-up. Sitting comfortably in the chair upon exam. Feeling well from a cardiac standpoint with no recurrent symptoms. Denies chest pressure, dyspnea on exertion, pain, tachy palpitations, lightheadedness, dizziness, syncope, orthopnea, PND, or worsening edema. Chart, medications, and telemetry personally reviewed. Review of Systems Review of Systems: See HPI for pertinent positives. All others negative other than those noted in the HPI. CONSTITUTIONAL: No change in weight, No weakness, No fatigue, No fevers, No sweats or chills. HEENT: No visual changes, No epistaxis, No bleeding gums, No dysphagia, PULMONARY: No cough, sputum, or hemoptysis, No wheezing, No shortness of breath, and No recent change in breathing. CARDIOVASCULAR: No chest pain, No dyspnea on exertion, No edema, No palpitations, No syncope, No claudication, No calf pain. GASTROINTESTINAL: No change in appetite, No abdominal pain, No change in bowel habits, No significant heartburn, No nausea, No vomiting, No diarrhea, No constipation, No blood in stools or black tarry stools, No dysphagia. HEMATOLOGIC: No abnormal bleeding and No bruising. NEUROLOGICAL: No falls, No dizziness, No lightheadedness, Normal balance, No headaches, and No weakness. PSYCH: No sleep disturbances, No mood changes. Physical Exam Physical Exam: Vital signs within normal limits as above. General: Well developed and nourished. No acute distress. A+Ox3. HEENT: Normocephalic. Atraumatic. EOMI. Conjunctiva and sclera clear. NECK: Trachea midline. No thyromegaly. No carotid bruits. No JVD. Carotid upstrokes are brisk. Heart: RRR. S1 and S2 noted. No murmur. No rubs or gallops. PMI non displaced. Lungs: No acute respiratory distress. Clear to auscultation. No wheezes.No rhonchi. No rales. Abdomen: Normal bowel sounds. Soft. Nontender. No abdominal bruits. Extremities: Normal capillary refill. No edema. No clubbing or cyanosis. Skin: Warm and dry. NEURO: No focal deficits. PSYCH: Appropriate affect and insight. Results & Data Vital Signs (Past 12 Hours) Vital Signs Temp Pulse Pulse Resp BP BP Pulse Ox 09/01/25 07:21 36.8 C 87 17 130/71 96 09/01/25 03:28 36.8 C 83 18 122/66 95 09/01/25 00:54 123/57 L 09/01/25 00:16 193/78 H 09/01/25 00:10 193/87 H 08/31/25 23:37 80 08/31/25 23:12 36.8 C 80 18 176/87 H 95 08/31/25 22:02 36.8 C O2 Del Method 09/01/25 07:21 Room Air 09/01/25 03:28 Room Air 09/01/25 00:54 09/01/25 00:16 09/01/25 00:10 08/31/25 23:37 08/31/25 23:12 Room Air 08/31/25 22:02 Laboratory Results Intake and Output 08/31/25 09/01/25 09/01/25 22:59 06:59 14:59 Intake Total 200 / 2880 550 / 2880 Balance 200 / 2429 550 / 2429 Intake: IV 100 / 100 Magnesium Sulfate / D5w 1 gm In 100 / 100 100 ml @ 50 mls/hr IV ONE ONE Rx#:[id number] Oral 200 / 2780 450 / 2780 Other: # Unmeasured Voids 1 1 Weight 121.9 kg Weight Measurement Method [facility] Diagnostic Findings Sinus rhythm with heart rates 70-90 bpm and blocked PACs versus second degree (Mobitz I) and 2-3 beat runs of PVCs noted on 24-hour telemetry review. PG Care Time/CCT Total # of Minutes Spent Total Time Spent with Patient: Total time spent is greater than 50% in coordination of care (as documented) at patient's floor/unit and/or counseling patient: Coding [place] [address] SUB INP/OBS CARE 2/35MIN Patient Type Established Medical Decision Making High Complexity Diagnoses ST elevation myocardial infarction involving right coronary artery I21.11 Involved coronary artery: right coronary artery Hx of kidney transplant Z94.0 Bradycardia R00.1 (1) ST elevation (STEMI) myocardial infarction Involved coronary artery: right coronary artery Qualified Code(s): I21.11 - ST elevation (STEMI) myocardial infarction involving right coronary artery
[2025-09-01] MEDS: HEPARIN 100 UNIT/ML 5ML FLUSH FLUSH PRN (08:26)
[2025-09-01 08:32] LABS: Hematocrit (blood only) 33.8 % (42.0-52.0); Hemoglobin 11.4 g/dL (14.0-18.0); Mean Corpuscular Hemoglobin 29.7 pg (25.0-34.0); Mean Corpuscular Volume 88.0 fL (80.0-100.0); Platelet Count 315 K/uL (130-400); RDW Standard Deviation 43.0 fL (36.4-46.3); Red Blood Count 3.84 M/uL (4.70-6.10); White Blood Count 9.63 K/ul (4.8-10.8)
[2025-09-01 08:46] LABS: Anion Gap 6.0 (3-11); Blood Urea Nitrogen 25.0 mg/dl (6-23); Calcium 8.6 mg/dl (8.6-10.3); Carbon Dioxide 26.0 mmol/L (21-32); Chloride 98.0 mmol/L (98-107); Creatinine Clr Calc Pharmacy 96.9 ml/min; Glucose 184.0 mg/dl (70-99(Fasting)); Potassium 4.4 mmol/L (3.5-5.1); Sodium 130.0 mmol/L (136-145)
--- NOTE | 2025-09-01 10:02 | Hospitalist Progress Note ---
Date of Service September 01, 2025 Assessment & Plan (1) ST elevation (STEMI) myocardial infarction: Plan: 59M with PMH CAD, IDDM, pAF, HTN HLD, MATT on cpap, kidney transplant on immunosuppresive therapy, anemia, prior tobacco use who presents with STEMI #STEMI -S/p DARCI x 3 to RCA -Compete heart block secondary to STEMI -S/p temporary pacer, removed 08/30 -TTE showing EF 45% Plan -Continue DAPT per cardio -BB contraindicated due to bradycardia -High intensity statin -Cardio to decide on PCI to OM2 on tuesday -NPO after MN -Continue cardiac monitoring #Rhinovirus -Symptomatic management #IDDM -Uses insulin pump at home -A1c 9.0 -He states his BG has been poorly controlled ever since he started a new anti rejection medication 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 and he will f/u with them as OP #Acute on Chronic hyponatremia -Na 124 on admission, baseline around 128 -Na improved to 130 on 09/01 -Asymptomatic -Monitor -Avoid rapid overcorrection #Hypomagnesemia -Resolved #Hypokalemia -Replace and follow #History of ESRD s/p kidney transplant -Cr at baseline, 1.3-1.5 -Nephrology consulted, appreciate input -Cr 1.1 on 09/01, stable -Continue home immunosuppressive therapy #pAfib -Not on home AC #HTN -Defer BP management to cardio for GDMT ISO STEMI I spent a total of 45 minutes coordinating, documenting, and providing care for this patient excluding time spent in the performance of separately billed services. This included personally reviewing all current laboratories and imaging studies, medical reconciliation, outpatient chart review and discussion with specialists Admission and Anticipated Discharge Date Admission Date: August 29, 2025 Subjective Feeling well today. he wishes to go home but was agreeable to staying until tomorrow after discussion D/w cardio mel Physical Exam Physical Exam: Vitals and labs reviewed General: Well appearing, NAD HEENT: EOMI, PERRLA Neck: Supple Cardiac: RRR Lungs: CTA no rhonchi wheezing or rales Abd: S NT ND BS positive : Sutton MSK: Full ROM. No obvious deformities Ext: No Edema cyanosis Skin: Warm, Dry Neuro: AOx3 No focal deficits. Psych: Normal Mood Results & Data Results & Data Vital Signs (Past 12 Hours) Vital Signs Temp Pulse Pulse Resp BP BP Pulse Ox 09/01/25 08:00 09/01/25 07:21 36.8 C 87 17 130/71 96 09/01/25 03:28 36.8 C 83 18 122/66 95 09/01/25 00:54 123/57 L 09/01/25 00:16 193/78 H 09/01/25 00:10 193/87 H 08/31/25 23:37 80 08/31/25 23:12 36.8 C 80 18 176/87 H 95 08/31/25 22:02 36.8 C O2 Del Method 09/01/25 08:00 Room Air 09/01/25 07:21 Room Air 09/01/25 03:28 Room Air 09/01/25 00:54 09/01/25 00:16 09/01/25 00:10 08/31/25 23:37 08/31/25 23:12 Room Air 08/31/25 22:02 (1) ST elevation (STEMI) myocardial infarction Involved coronary artery: right coronary artery Qualified Code(s): I21.11 - ST elevation (STEMI) myocardial infarction involving right coronary artery
--- NOTE | 2025-09-01 10:41 | Nephrology Progress Note ---
Date of Service September 01, 2025 Assessment & Plan (1) Renal transplant recipient: Plan: Patient is status post kidney transplant in September 2018 previously maintained on belatacept and mycophenolate. This was interrupted due to insurance coverage. He was due to start belatacept on 09/02/2025 but this will have to rescheduled. Will continue current immunosuppression which is mycophenolate 360 mg twice daily and Prograf 1 mg in the morning and 0.5 mg in the evening. Graft function is stable with a creatinine down to 1.14. He has hyponatremia which is improving. Discussed with patient and . they wanted to know when to stop tacrolimus. Per Dr. Rice patient should stop tacrolimus after the nicholas infusion. Recommend improved blood sugar control. - no need for IV Lasix unless patient becomes hypoxic -Daily BMP. (2) Immunocompromised: Plan: will continue CellCept and Prograf as above. Patient is planned for on belatacept infusion after discharge. (3) ST elevation (STEMI) myocardial infarction: Plan: Patient is status post cardiac catheterization and stenting to the RCA. Echocardiogram showed EF of 45-50% with improvement in regional wall motion abnormalities in the left ventricle. heis planned for another cath 09/02. patient concerned about contrast damage to his kidney. Extensive discussion with patient on the importance of having his coronaries stented. There is a risk for SOFIA but will monitor closely. He will likely need some iv fluids post contrast. Plan Total of 50 minutes spent on chart review and pt eval. Admission and Anticipated Discharge Date Admission Date: August 29, 2025 Subjective Seen for renal transplant and immunosuppression now with STEMI. He feels better. No chest pain or SOB. cardiology plan cath and stent 09/02. he is concerned about contrast damaging his kidney. Review of Systems 2 Review of Systems: All other systems were reviewed and negative except as noted in HPI Physical Exam 2 Physical Exam: General exam: Appears comfortable, no acute distress HEENT: Pupils are equal and reactive to light Neck: No JVD, neck is supple trachea is midline Respiratory system: Clear breath sounds bilaterally. Gastrointestinal: Abdomen is soft, non distended, non tender, bowel sounds are present CVS: Regular rate and rhythm. No murmurs, rubs or gallops Musculoskeletal: No joint or muscle tenderness Extremities: Non tender, no edema, peripheral pulses are present Neuro: Oriented, no tremors, no focal neurological deficits Skin: No rashes Results & Data Vital Signs (Past 12 Hours) Vital Signs Temp Pulse Pulse Resp BP BP Pulse Ox 09/01/25 08:00 09/01/25 07:21 36.8 C 87 17 130/71 96 09/01/25 03:28 36.8 C 83 18 122/66 95 09/01/25 00:54 123/57 L 09/01/25 00:16 193/78 H 09/01/25 00:10 193/87 H 08/31/25 23:37 80 08/31/25 23:12 36.8 C 80 18 176/87 H 95 O2 Del Method 09/01/25 08:00 Room Air 09/01/25 07:21 Room Air 09/01/25 03:28 Room Air 09/01/25 00:54 09/01/25 00:16 09/01/25 00:10 08/31/25 23:37 08/31/25 23:12 Room Air Laboratory Results 09/01/25 07:48 09/01/25 07:48 WBC 9.63 RBC 3.84 L MCV 88.0 MCH 29.7 MCHC 33.7 RDW Std Deviation 43.0 RDW Coeff of Dandre 13.4 Plt Count 315 MPV 10.7 (3) ST elevation (STEMI) myocardial infarction Involved coronary artery: right coronary artery Qualified Code(s): I21.11 - ST elevation (STEMI) myocardial infarction involving right coronary artery
--- NOTE | 2025-09-01 12:12 | Electrocardiogram Report ---
Test Reason : Blood Pressure : */* mmHG Vent. Rate : 79 BPM Atrial Rate : 79 BPM P-R Int : 216 ms QRS Dur : 122 ms QT Int : 396 ms P-R-T Axes : 47 -20 66 degrees QTcB Int : 454 ms Sinus rhythm with 1st degree A-V block Possible Left atrial enlargement evolving Inferior infarct (cited on or before 30-Aug-2025) Cannot rule out Anterior infarct , age undetermined Abnormal ECG When compared with ECG of 30-Aug-2025 09:13, Minimal criteria for Anterior infarct are now Present Confirmed by Amadou Dickey ([id number]) on 09/01/2025 12:11:46 PM Referred By: REFERRED SELF Confirmed By: Amadou Dickey
[2025-09-01] MEDS ORDERED: INSULIN ASPART PER UNIT CHARGE SC SCH (16:30)
[2025-09-01] MEDS: INSULIN ASPART PER UNIT CHARGE SC SCH (17:27)
[2025-09-02 06:27] LABS: Anion Gap 7.0 (3-11); Blood Urea Nitrogen 25.0 mg/dl (6-23); Calcium 8.8 mg/dl (8.6-10.3); Carbon Dioxide 26.0 mmol/L (21-32); Chloride 98.0 mmol/L (98-107); Creatinine Clr Calc Pharmacy 83.8 ml/min; Glucose 253.0 mg/dl (70-99(Fasting)); Potassium 5.1 mmol/L (3.5-5.1); Sodium 131.0 mmol/L (136-145)
--- NOTE | 2025-09-02 10:33 | Pre Anesthesia Assessment ---
Date of Service September 02, 2025 Pre Sedation Assessment Vital Signs Temp Pulse Pulse Resp BP Pulse Ox O2 Del Method 09/02/25 08:09 97.9 F 78 21 117/75 95 Room Air 09/02/25 07:00 74 09/02/25 03:00 98.2 F 78 18 121/78 96 Room Air 09/01/25 23:53 84 09/01/25 23:00 97.7 F 83 19 122/76 96 Room Air 09/01/25 19:00 98.4 F 86 19 132/80 96 Room Air 09/01/25 15:15 98.2 F 83 17 122/78 95 Room Air 09/01/25 13:00 85 09/01/25 11:06 98.1 F 79 18 124/80 96 Room Air Cardiovascular + regular rate Respiratory + respiratory effort normal Pre-Sedation Airway Assessment Smoking Status: Heavy tobacco smoker Hx Sleep Apnea: No Hx Difficult Intubation: No Short, Thick Neck: No Thyromental Distance: < 3.5 Finger Breadths Oral Cavity: + Dental Abnormalities Mallampati Class: III ASA: ASA3 Procedure Planning Contraindications for Sedation: none Current Medications Reviewed: Yes Notes The planned sedation has been discussed with the patient. Informed Consent was obtained. I have identified the patient, determined the appropriateness of sedation and have assessed the patient immediately prior to the procedure. All medicine(s) and interventions are by my order.
[2025-09-02] MEDS: NITROGLYCERIN/D5W 100MCG/ML 20ML SYR ONE (11:05)
[2025-09-02] MEDS: niCARdipine 2,000 MCG/20 ML SYR ONE (11:05)
--- NOTE | 2025-09-02 11:22 | Cardiology Progress Note ---
Date of Service September 02, 2025 Assessment & Plan (1) ST elevation (STEMI) myocardial infarction: (2) Hx of kidney transplant: (3) Asymptomatic PVCs: (4) Bradycardia: Plan: 59-year-old male presenting with inferior ST elevation NH complicated by third-degree AV block status post DARCI x 3 to RCA and temporary transvenous pacemaker placement. Pacemaker subsequently removed. Remains in sinus rhythm with first-degree AV block on telemetry. No recurrent anginal symptoms. Coronary angiography reviewed demonstrating severe obtuse marginal branch vessel disease. History of end-stage renal disease related to diabetes and hypertension with subsequent donor renal transplant September 2018. Renal function has trended downward towards baseline today. Recommendations: * Stage PCI of obtuse marginal branch vessel today * Continue aspirin and prasugrel for minimum of 12 months post PCI * No current indication for pacemaker, however continued surveillance recommended due to underlying conduction disease. * Recommend outpatient 14-day ZIO monitor * Continue rosuvastatin as ordered Elder Parks DO, [facility] Admission and Anticipated Discharge Date Admission Date: August 29, 2025 Subjective 59-year-old male seen examined at the bedside. No recurrent chest discomfort overnight. Tentatively scheduled for PCI of obtuse marginal branch vessel today. Telemetry reveals sinus rhythm in the 70s. No orthopnea, PND, or lower extremity edema. Serum creatinine 1.3 today. Denies palpitations, lightheadedness, or dizziness. Tolerating current medications. present at bedside. Questioning why patient received magnesium supplementation yesterday. Telemetry revealed demonstrating PVCs, ventricular couplets and triplets at approximately 12:30 AM 09/01/2025. No recurrence over the past 24 hours. Review of Systems Review of Systems: All systems reviewed & are unremarkable except as noted in Subjective Physical Exam Constitutional: well nourished; no acute distress and not ill appearing Respiratory: no respiratory distress, no labored breathing and no retractions Cardiovascular: Rate/Rhythm: regular rate and regular rhythm Heart Sounds: normal S1 and normal S2; no murmur Vessels: radial pulses present; no JVD Extremities: no edema Gastrointestinal (Abdomen): Inspection/Auscultation: abdomen normal to inspection; abdomen not distended Percussion/Palpation: abdomen soft; abdomen nontender and no guarding Neurologic: CN's II-XI intact bilaterally and moves all extremities; no focal motor deficits Results & Data Vital Signs (Past 12 Hours) Vital Signs Temp Pulse Pulse Resp BP Pulse Ox O2 Del Method 09/02/25 09:00 Room Air 09/02/25 08:09 36.6 C 78 21 117/75 95 Room Air 09/02/25 07:00 74 09/02/25 03:00 36.8 C 78 18 121/78 96 Room Air 09/01/25 23:53 84 Laboratory Results Comprehensive Metabolic Panel 09/02/25 Range/Units 05:37 Sodium 131 L (136-145) mmol/L Potassium 5.1 (3.5-5.1) mmol/L Chloride 98 (98-107) mmol/L Carbon Dioxide 26 (21-32) mmol/L BUN 25 H (6-23) mg/dl Creatinine 1.32 (0.6-1.4) mg/dl Glucose 253 H (70-99(Fasting)) mg/dl Calcium 8.8 (8.6-10.3) mg/dl Intake and Output 09/01/25 09/02/25 09/02/25 22:59 06:59 14:59 Intake Total 400 / 1000 Balance 400 / 1000 Intake: Oral 400 / 1000 Other: Other Intake Source NPO # Unmeasured Voids 1 2 Weight 122 kg Weight Measurement Method Built in [facility] PG Care Time/CCT Total # of Minutes Spent Total Time Spent with Patient: Total time spent is greater than 50% in coordination of care (as documented) at patient's floor/unit and/or counseling patient: Coding Level of Care Code 79823 SUB INP/OBS CARE 3/50MIN Diagnoses ST elevation myocardial infarction involving right coronary artery I21.11 Involved coronary artery: right coronary artery Hx of kidney transplant Z94.0 Asymptomatic PVCs I49.3 Bradycardia R00.1 (1) ST elevation (STEMI) myocardial infarction Involved coronary artery: right coronary artery Qualified Code(s): I21.11 - ST elevation (STEMI) myocardial infarction involving right coronary artery
[2025-09-02] MEDS: MIDAZOLAM HCL 1 MG/ML 2ML VIAL ONE (11:31)
[2025-09-02] MEDS: HEPARIN (PORCINE) 1000 UNIT/ML 10 ML (CATH LAB USE ONLY) ONE (11:31)
--- NOTE | 2025-09-02 11:32 | Hospitalist Progress Note ---
Date of Service September 02, 2025 Assessment & Plan (1) ST elevation (STEMI) myocardial infarction: Plan: 59M with PMH CAD, IDDM, pAF, HTN HLD, MATT on cpap, kidney transplant on immunosuppresive therapy, anemia, prior tobacco use who presents with STEMI #STEMI -S/p DARCI x 3 to RCA -Compete heart block secondary to STEMI -S/p temporary pacer, removed 08/30 -TTE showing EF 45% Plan -Continue DAPT per cardio -BB contraindicated due to bradycardia -High intensity statin -For PCI to OM2 today -Appreciate nephro input regarding post procedure IVF to prevent contrast induced nephropathy -Continue cardiac monitoring #Rhinovirus -Symptomatic management #IDDM -Uses insulin pump at home -A1c 9.0 -He states his BG has been poorly controlled ever since he started a new anti rejection medication 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 and he will f/u with them as OP #Acute on Chronic hyponatremia -Na 124 on admission, baseline around 128 -Na improved to 131 09/02 -Asymptomatic -Monitor -Avoid rapid overcorrection #Hypomagnesemia -Resolved #Hypokalemia -Replace and follow #History of ESRD s/p kidney transplant -Cr at baseline, 1.3-1.5 -Nephrology consulted, appreciate input -Cr 1.3 on 09/02, stable -Continue home immunosuppressive therapy #pAfib -Not on home AC #HTN -Defer BP management to cardio for GDMT ISO STEMI I spent a total of 48 minutes coordinating, documenting, and providing care for this patient excluding time spent in the performance of separately billed services. This included personally reviewing all current laboratories and imaging studies, medical reconciliation, outpatient chart review and discussion with specialists Admission and Anticipated Discharge Date Admission Date: August 29, 2025 Subjective Feeling well today. he is very eager to go home. denies any complaints. d/w at bedside Physical Exam Physical Exam: Vitals and labs reviewed General: Well appearing, NAD HEENT: EOMI, PERRLA Neck: Supple Cardiac: RRR Lungs: CTA no rhonchi wheezing or rales Abd: S NT ND BS positive : Sutton MSK: Full ROM. No obvious deformities Ext: No Edema cyanosis Skin: Warm, Dry Neuro: AOx3 No focal deficits. Psych: Normal Mood Results & Data Results & Data Vital Signs (Past 12 Hours) Vital Signs Temp Pulse Pulse Resp BP Pulse Ox O2 Del Method 09/02/25 09:00 Room Air 09/02/25 08:09 36.6 C 78 21 117/75 95 Room Air 09/02/25 07:00 74 09/02/25 03:00 36.8 C 78 18 121/78 96 Room Air 09/01/25 23:53 84 Laboratory Results Abnormal lab results 09/01/25 09/01/25 09/02/25 Range/Units 16:10 20:23 01:29 Sodium (136-145) mmol/L BUN (6-23) mg/dl Glucose (70-99(Fasting)) mg/dl POC Glucose 242 H 206 H 236 H (70-99) mg/dl 09/02/25 09/02/25 09/02/25 Range/Units 05:37 05:45 08:02 Sodium 131 L (136-145) mmol/L BUN 25 H (6-23) mg/dl Glucose 253 H (70-99(Fasting)) mg/dl POC Glucose 246 H 258 H (70-99) mg/dl (1) ST elevation (STEMI) myocardial infarction Involved coronary artery: right coronary artery Qualified Code(s): I21.11 - ST elevation (STEMI) myocardial infarction involving right coronary artery
[2025-09-02] MEDS: OPTIRAY 350 ONE (11:35)
--- NOTE | 2025-09-02 11:38 | Post Anesthesia Assessment ---
Date of Service September 02, 2025 Post Sedation Assessment Vital Signs Temp Pulse Pulse Resp BP Pulse Ox O2 Del Method 09/02/25 09:00 Room Air 09/02/25 08:09 97.9 F 78 21 117/75 95 Room Air 09/02/25 07:00 74 09/02/25 03:00 98.2 F 78 18 121/78 96 Room Air 09/01/25 23:53 84 09/01/25 23:00 97.7 F 83 19 122/76 96 Room Air 09/01/25 19:00 98.4 F 86 19 132/80 96 Room Air 09/01/25 15:15 98.2 F 83 17 122/78 95 Room Air 09/01/25 13:00 85 Recovery Score Activity: Moves 4 extremities Respiration: Deep Breath/Cough Circulation: +/-20% PreAnes Value Consciousness: Fully Awake Oxygen Saturation: O2 needed for >90% Discharge Sedation Level of Care: Fast Track Phase II
--- NOTE | 2025-09-02 11:46 | Cardiac Catheterization ---
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 Cardiac Status Clinical evaluation leading to the procedure CAD Presenation: No Sxs, No angina Diagnostic Physicians Name: Amadou Shay MD Closure Device Recommendations: PCI without planned CABG Cardiac Cath Procedure Full Procedure Date September 02, 2025 Pre-Procedure Diagnosis Pre-Procedure Diagnosis: CAD AUC Score AUC Score: 7 Post-Procedure Diagnosis Post-Procedure Diagnosis: Severe CAD and Successful PCI Procedure(s) Performed Procedure(s) Performed: Coronary Angiography, Drug Eluting Stent and Ultrasound Guided Vascular Access Shell Trim Tool Setter Amadou Shay MD Imaging Administrator(s) Elizabeth Estimated Blood Loss Estimated Blood Loss: 20 Medication(s) Medication(s): Clopidogrel, Fentanyl, Heparin, Lidocaine 1%, Nicardipine, Nitroglycerin and Versed Summary of Findings Indication: Staged PCI of OM 2 Access: 6 Fr slender right radial artery under ultrasound guidance Catheters: JL 3.5 guide Findings: LM -normal caliber, no significant disease LAD -medium caliber, calcified, 3040% proximal, 30% mid segment disease, small distal vessel with 50-60% disease, distal vessel tapers prior to apex. Medium D1 with 4050% ostial stenosis. Circumflex -medium caliber, 40% proximal stenosis. Gives off medium OM2 with proximal patent stent and in-stent restenosis at distal aspect with 90% disease just after stent. Jailed small AV groove circumflex severe ostial disease. RCA -not visualized on current study -- PCI -- Antithrombotic therapy: Heparin, prasugrel Procedure: Left Main cannulated with EBU 3.5 guide Pre-procedure flow INA 3 Machine Molder 50 wire passed across lesion into distal vessel Mid to distal OM lesion predilated with 2.0 compliant balloon Dilated lesion stented with 2.25 x 30 mm Alfred drug-eluting stent overlapping distal aspect of prior stent Stent post-dilated with 2.5 noncompliant balloon to high atmospheres IC vasodilators administered for spasm Post procedure INA 3 flow, stent well expanded with minimal residual stenosis and no apparent cardiac complications. Arterial Closure: TR band Summary: 1. Successful PCI of mid OM2 with single drug-eluting stent overlapping distal aspect of prior stent (2.25 x 30 mm Alfred; postdilated with 2.5 NC) Recommendations: To PCU for continued monitoring Continue dual-antiplatelet therapy for at least 1 year with prasugrel, aspirin. Continue statin, and ASCVD risk factor modification Medical management of remaining nonobstructive CAD. Hemodynamics Rest Ao:: 98 Final Ao: 103 LV: Recommendations Recommendations: PCI without planned CABG Specimens Specimens: None Radiation Exposure (mGy) 1549 Contrast (mls) 75 Anesthesia Moderate [id number] Disposition PCU I attest to the content of the Intraoperative Record and any orders documented therein. Any exceptions are noted below. [facility] Card Cath Procedure Codes Therapeutic Services & Ancillary Procedure 1: Cardiovascular Tx and Anc Procedures: 54920 Ultrasonic Guidance Vascular Access Moderate Sedation Procedure 1: Sedation/Anesthesia: 14620 Mod Sedation by the same physician;Init15 Min Child Age 5 & Up Procedure 2: Sedation/Anesthesia: 29397 Mod Sedation by the same physician; Ea [id number] Minutes Stenting Procedure 1: Cardiovascular Stent Procedures: 91559 Perc transcatheter placement of intracoronary stent(s), with ang PG Care Time/CCT Total # of Minutes Spent Total Time Spent with Patient: Total time spent is greater than 50% in coordination of care (as documented) at patient's floor/unit and/or counseling patient:
--- NOTE | 2025-09-02 12:22 | Nephrology Progress Note ---
Date of Service September 02, 2025 Assessment & Plan (1) Renal transplant recipient: Plan: Patient is status post kidney transplant in September 2018 previously maintained on belatacept and mycophenolate. This was interrupted due to insurance coverage. He was due to re-start belatacept on 09/02/2025 but this will have to rescheduled. Will continue current immunosuppression which is mycophenolate 360 mg twice daily and Prograf 1 mg in the morning and 0.5 mg in the evening. Allograft function is somewhat labile with in 2024 baseline creatinine 1.1-1.3, similar values past 24 hrs. He has hyponatremia which is further improved to 131 today. Discussed with patient and . they wanted to know when to stop tacrolimus. Per Dr. Gan ([facility] txplt nephro) patient should stop tacrolimus after the nicholas infusion, currently rescheduled but waiting for further clarification. Recommend improved blood sugar control. no e/o pancytopenia on cbc > cont to monitor - no need for IV Lasix unless patient becomes hypoxic -Daily BMP. cbc >will give NS at 125 mL hourly for 12 hrs post procedure today >> so ordered Care coordinated w/ Dr Levy via TText regarding NS post procedure, IS plans, OP monitoring; we are in agreement. (2) Immunocompromised: Plan: will continue CellCept and Prograf as above. Patient is planned for on belatacept infusion after discharge. I have contacted [facility] txplt team about next steps in this regard after hospital d/c (3) ST elevation (STEMI) myocardial infarction: Plan: Patient is status post cardiac catheterization and stenting to the RCA, and on 09/02 to obtuse marginal branch. Echocardiogram showed EF of 45-50% with improvement in regional wall motion abnormalities in the left ventricle. patient concerned about contrast damage to his kidney. Extensive discussion with patient on the importance of having his coronaries stented. There is a risk for SOFIA but will monitor closely. >note cardiology recommends OP 14 day zio as well as 12 mos prasugrel/ASA post PCI and intermodal dispatcher statin therapy Admission and Anticipated Discharge Date Admission Date: August 29, 2025 Subjective seen on early AM rounds; at bedside. no further back pain; no sob, no edema, no chest pain or n/v. Review of Systems 2 Review of Systems: All systems reviewed & are unremarkable except as noted in Subjective Physical Exam 2 Constitutional: well developed (sitting up in chair on RA) and well nourished; no acute distress Eyes: EOM intact bilaterally ENMT: Mouth: + dry oral mucous membranes Neck: no nuchal rigidity Respiratory: normal respiratory effort Auscultation: + diminished lung sounds Cardiovascular: Rate/Rhythm: regular rate and regular rhythm Extremities: n o edema Gastrointestinal (Abdomen): Inspection/Auscultation: normal bowel sounds P ercussion/Palpation: abdomen soft; abdomen nontender Musculoskeletal: Extremities: strength 5/5 throughout Skin: no rashes, warm and dry Neurologic: lemons, fluent speech, no tremor Psychiatric: Orientation: alert and oriented x 3 Results & Data Vital Signs (Past 12 Hours) Vital Signs Temp Pulse Pulse Resp BP BP Pulse Ox 09/02/25 12:04 36.6 C 77 16 152/79 H 97 09/02/25 09:00 09/02/25 08:09 36.6 C 78 21 117/75 95 09/02/25 07:00 74 09/02/25 03:00 36.8 C 78 18 121/78 96 O2 Del Method 09/02/25 12:04 Room Air 09/02/25 09:00 Room Air 09/02/25 08:09 Room Air 09/02/25 07:00 09/02/25 03:00 Room Air Laboratory Results 09/01/25 07:48 09/02/25 05:37 (3) ST elevation (STEMI) myocardial infarction Involved coronary artery: right coronary artery Qualified Code(s): I21.11 - ST elevation (STEMI) myocardial infarction involving right coronary artery
[2025-09-02] MEDS: SODIUM CHLORIDE 0.9% 1,000 ML IV STA (12:47)
[2025-09-03 05:43] VITALS: RESP 18
[2025-09-03 06:20] LABS: Hematocrit (blood only) 32.8 % (42.0-52.0); Hemoglobin 10.5 g/dL (14.0-18.0); Mean Corpuscular Hemoglobin 28.9 pg (25.0-34.0); Mean Corpuscular Volume 90.4 fL (80.0-100.0); Platelet Count 377 K/uL (130-400); RDW Standard Deviation 45.2 fL (36.4-46.3); Red Blood Count 3.63 M/uL (4.70-6.10); White Blood Count 8.26 K/ul (4.8-10.8)
[2025-09-03 06:47] LABS: Anion Gap 6.0 (3-11); Blood Urea Nitrogen 23.0 mg/dl (6-23); Calcium 8.6 mg/dl (8.6-10.3); Carbon Dioxide 27.0 mmol/L (21-32); Chloride 104.0 mmol/L (98-107); Creatinine Clr Calc Pharmacy 89.8 ml/min; Glucose 122.0 mg/dl (70-99(Fasting)); Potassium 4.7 mmol/L (3.5-5.1); Sodium 137.0 mmol/L (136-145)
[2025-09-03 07:42] VITALS: PULSE 79; TEMP 98.1; O2SAT 96
--- NOTE | 2025-09-03 09:40 | Nephrology Progress Note ---
Date of Service September 03, 2025 Assessment & Plan (1) Renal transplant recipient: Plan: Patient is status post kidney transplant in September 2018 previously maintained on belatacept and mycophenolate. This was interrupted due to insurance coverage. He was due to re-start belatacept on 09/02/2025 but this will have to rescheduled. Will continue current immunosuppression which is mycophenolate 360 mg twice daily and Prograf 1 mg in the morning and 0.5 mg in the evening. Allograft function is somewhat labile with in 2024 baseline creatinine 1.1-1.3, similar values past 24 hrs. He had hyponatremia earlier this admission (jenna value 123 on 08/30), now resolved >continue current IS pending txplt response; pt can be d/c on this regimen still no e/o pancytopenia on cbc > cont to monitor; hgb did drop a bit today ? d/t infusion >he had NS at 125 mL hourly for 12 hrs post procedure yesterday. Care coordinated w/ Dr Levy via [employer] regarding belatacept infusion plans, OP monitoring; we are in agreement. Will sign off. NEPH D/C RECS DX: -s/p renal transplant, immuncompromised -STEMI RX: -tacrolimus 1 mg AM, 0.5 mg PM -mycophenolate sodium 360 mg bid -post stent meds as per cardiology OTHER CARE: -transplant labs to be ordered by transplant and drawn by them at belatacept infusion -14-day zio as per cardiology recommendations >bring a BP log using good technique with 12-14 readings to follow up appts w/ nephrology/transplant, cardiology -[place]P and cardiology [place] [place] to reschedule belatacept infusion for approximately 09/16; pls contact your literacy coordinator on Thursday 09/06 afternoon if you have not yet heard of a date F/U APPTS: -w/ [facility] transplant within one month hospital d/c/complex neph visit Dr Gan or Dr Maradiaga (2) Immunocompromised: Plan: will continue CellCept and Prograf as above. Patient is planned for on belatacept infusion after discharge. I have contacted [facility] [place] about next steps in this regard after hospital d/c (3) ST elevation (STEMI) myocardial infarction: Plan: Patient is status post cardiac catheterization and stenting to the RCA, and on 09/02 to obtuse marginal branch. Echocardiogram showed EF of 45-50% with improvement in regional wall motion abnormalities in the left ventricle. patient concerned about contrast damage to his kidney. Extensive discussion with patient on the importance of having his coronaries stented. There is a risk for SOFIA but will monitor closely. >note cardiology recommends OP 14 day zio as well as 12 mos prasugrel/ASA post PCI and penitentiary statin therapy Admission and Anticipated Discharge Date Admission Date: August 29, 2025 Subjective no acute interval events clinically; no sob; only back pain relates to bed; no new/worrisome voiding sx or edema, no chest pain Review of Systems 2 Review of Systems: All systems reviewed & are unremarkable except as noted in Subjective Physical Exam 2 Constitutional: well developed (sitting up in chair on RA) and well nourished; no acute distress Eyes: EOM intact bilaterally ENMT: Mouth: + dry oral mucous membranes Neck: no nuchal rigidity Respiratory: normal respiratory effort Auscultation: + diminished lung sounds Cardiovascular: Rate/Rhythm: regular rate and regular rhythm Extremities: n o edema Gastrointestinal (Abdomen): Inspection/Auscultation: normal bowel sounds P ercussion/Palpation: abdomen soft; abdomen nontender Musculoskeletal: Extremities: strength 5/5 throughout Skin: no rashes, warm and dry Psychiatric: Orientation: alert and oriented x 3 Results & Data Vital Signs (Past 12 Hours) Vital Signs Temp Pulse Pulse Resp BP BP Pulse Ox 09/03/25 07:42 36.7 C 79 18 117/72 96 09/03/25 04:00 36.8 C 74 18 140/75 95 09/02/25 23:29 79 09/02/25 23:06 36.7 C 82 19 109/68 95 O2 Del Method 09/03/25 07:42 Room Air 09/03/25 04:00 Room Air 09/02/25 23:29 09/02/25 23:06 Room Air Laboratory Results 09/03/25 05:58 09/03/25 05:58 (3) ST elevation (STEMI) myocardial infarction Involved coronary artery: right coronary artery Qualified Code(s): I21.11 - ST elevation (STEMI) myocardial infarction involving right coronary artery
--- NOTE | 2025-09-03 09:48 | Discharge Summary ---
Discharge Summary Date of Service September 03, 2025 Principal Dx & Hospital Course #1 = Principal Diagnosis (1) ST elevation (STEMI) myocardial infarction: 59M with PMH CAD, IDDM, pAF, HTN HLD, MATT on cpap, kidney transplant on immunosuppresive therapy, anemia, prior tobacco use who presents with STEMI. He underwent emergent LHC on admission, s/p DARCI x 3 to RCA. He was bradycardic and needed temporary pacing for about 24 hours. Pacer was removed and HR remains normal. Not a candidate for beta blockade due to the bradycardia. EF 45%. Nephrology was consulted due to his CKD and kidney transplant status. Renal function remained stable. He was diagnosed with rhinovirus during his stay but did not need O2. During the initial LHC there was also obstruction of OM2. He went for LHC again yesterday with DARCI x 1 to OM2. He was given IVF following procedure to prevent SOFIA. Renal function stable today. He feels well and wishes to go home. Denies any complaints. He will f/u with his PCP, cardiolgoist, webmaster, and marketing operations assistant upon discharge. Vitals and labs stable on day of discharge. #STEMI -S/p DARCI x 3 to RCA -Compete heart block secondary to STEMI -S/p temporary pacer, removed 08/30 -TTE showing EF 45% #Rhinovirus -Symptomatic management #IDDM -Uses insulin pump at home -A1c 9.0 -He states his BG has been poorly controlled ever since he started a new anti rejection medication His marketing operations assistant is aware of this and he will f/u with them as OP #Acute on Chronic hyponatremia -Na 124 on admission, baseline around 128 -Na improved to 131 09/02 -Asymptomatic -Monitor -Avoid rapid overcorrection #Hypomagnesemia -Resolved #Hypokalemia -Replace and follow #History of ESRD s/p kidney transplant -Cr at baseline, 1.3-1.5 -Nephrology consulted, appreciate input -Cr 1.3 on 09/02, stable -Continue home immunosuppressive therapy #pAfib -Not on home AC #HTN -Defer BP management to cardio for GDMT ISO STEMI I spent a total of 42 minutes coordinating, documenting, and providing care for this patient excluding time spent in the performance of separately billed services. This included personally reviewing all current laboratories and imaging studies, medical reconciliation, outpatient chart review and discussion with specialists Notes For Next Care Provider Medication Changes From Visit Prasugrel daily Admission HPI Per Admitting Provider History obtained from patient and records. Medical history significant for CAD status post stent (2012), PAF, hypertension, hyperlipidemia, mild MR, PAD, MATT on CPAP, DM2 on insulin pump, ESRD status post kidney transplant on chronic antirejection regimen (baseline creatinine 1.3), chronic anemia (baseline hemoglobin 13), orthostatic hypotension/autonomic neuropathy as per records, BPH, past tobacco abuse. Last confinement December 2023 diabetic foot infection. Patient with achy chest pain going to the belly and back for almost a week. Could not take a deep breath. No cough symptoms. Patient unaware of fluid retention or weight gain. No trauma. Different from reflux. Compliant with home medications. Denies overt bleeding. Chronic watery diarrhea symptoms which patient attributes to antirejection medication. Patient consulted ER. Initial SBP 90s, heart rate [address] elevation noted on inferior leads on initial EKG. Heart alert called. Patient underwent emergent diagnostic cardiac catheterization. Multivessel CAD noted on cardiac catheterization. Successful PCI of RCA with 3 drug-eluting stents done. Transvenous pacemaker placed for complete heart block. Patient currently comfortable at the ICU at time of exam. 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 No obvious deformities Ext: No Edema cyanosis Skin: Warm, Dry Neuro: AOx3 No focal deficits. Psych: Normal Mood Updated Medication List Medication Instructions Recorded Confirmed Type aspirin 81 mg tablet,delayed 81 mg PO QAM 09/11/19 08/28/25 History release (Alejo Low Dose Aspirin) epinephrine 0.3 mg/0.3 mL 0.3 mg subcut DIRECTED PRN 09/11/19 08/28/25 Hi story injection, auto-injector (EpiPen) Anaphylaxis insulin lispro 100 unit/mL 15 unit subcut AC PRN PUMP FAILURE 09/11/19 08/28/25 History subcutaneous pen (Humalog KwikPen (U-100) Insulin) rosuvastatin 20 mg tablet (Crestor) 20 mg PO QAM 09/11/19 08/28/25 History tamsulosin 0.4 mg capsule (Flomax) 0.4 mg PO HS 09/11/19 08/28/25 History mycophenolate sodium 180 mg 360 mg (2 x 180 mg) PO BID #120 04/21/22 08/28/25 Rx tablet,delayed release tabs pregabalin 225 mg capsule 225 mg PO QPM 12/08/23 08/28/25 History diltiazem HCl 240 mg 240 mg PO DAILY 06/12/25 08/28/25 History capsule,extended release 24 hr Lactobacillus acidophilus 10 10,000 mmu cells PO DAILY 08/28/25 08/28/25 History billion cell capsule (Probiotic) glucagon 1 mg/0.2 mL subcutaneous 1 mg subcut DIRECTED PRN 08/28/25 08/28/25 History auto-injector (Gvoke HypoPen UNRESPONSIVE W/HYPOGLYCEMIA 2-Pack) insulin glargine 100 unit/mL (3 0 unit subcut DIRECTED 08/28/25 08/28/25 History mL) subcutaneous pen (Lantus Solostar U-100 Insulin) insulin lispro 100 unit/mL 1 sliding scale dose continuous 08/28/25 08/28/25 History subcutaneous solution subcutaneous infusion USEASDIRECTD insulin lispro 100 unit/mL 1 sliding scale dose continuous 08/28/25 08/28/25 History subcutaneous solution (Humalog subcutaneous infusion USEASDIRECTD U-100 Insulin) sildenafil 50 mg tablet 50 mg PO DAILY PRN Sexual Activity 08/28/25 08/28/25 History tacrolimus 1 mg capsule, 0.5 mg PO QPM 08/28/25 08/28/25 History immediate-release tacrolimus 1 mg capsule, 1 mg PO QAM 08/28/25 08/28/25 History immediate-release prasugrel HCl 10 mg tablet 10 mg PO QAM 30 days #30 tabs 09/03/25 Rx Hospital Stay Data Consultations 08/28/25 23:21 ED Decision to Admit Stat 08/29/25 01:25 Consult Gas Station Manager Routine 08/29/25 02:54 Consult Cardiology Routine 08/29/25 07:56 Consult Nephrology Routine Procedures Performed Operation Date: 09/02/25 10:30 Actual Procedures p Cineradiography w/Routine Exam - Amadou Shay MD p Drug Eluting Stent SGl Vessel - Amaduo Shay MD Diagnostic Imagining Performed 08/28/25 23:17 CL Cath Imgs for PACS use only Stat 09/02/25 10:45 CL Cath Imgs for PACS use only Stat Pending Results Patient Have Any Pending Studies at Discharge: No Discharge Instructions Given to Patient (Per Discharging Provider) Please take all your medications as prescribed. Do not miss any doses of your blood thinners. Please follow up with your PCP, machine shop instructor, and webmaster upon discharge. Total Time Total Time Spent Total Time Spent (In Minutes): 42
--- NOTE | 2025-09-03 10:03 | Electrocardiogram Report ---
Test Reason : Blood Pressure : */* mmHG Vent. Rate : 77 BPM Atrial Rate : 77 BPM P-R Int : 194 ms QRS Dur : 120 ms QT Int : 396 ms P-R-T Axes : 22 -50 61 degrees QTcB Int : 448 ms Normal sinus rhythm Left axis deviation Lateral infarct (cited on or before 01-Sep-2025) Inferior infarct (cited on or before 30-Aug-2025) ACUTE PA / STEMI Abnormal ECG When compared with ECG of 01-Sep-2025 00:22, QRS axis Shifted left Questionable change in initial forces of Anterior leads Confirmed by Korey Clement ([id number]) on 09/03/2025 10:02:51 AM Referred By: REFERRED SELF Confirmed By: Korey Clement
[2025-09-03 10:36] VITALS: BP 147/56
== END 2025-09-03 11:20 | disposition home or self-care (01) | DRG 321 ==
LOC: ED 22:29 → 1E 23:30 → OR 23:30 → 1E 08-29 00:16 → 4W 08-30 15:57

== ENCOUNTER 2025-09-04 23:00 | Observation (INO) ==
--- NOTE | 2025-09-04 23:15 | Emergency Department Note ---
Impression & Plan Syncope Admission ED Provider Note HPI: History obtained from patient and EMS report. The patient is a 59-year-old gentleman who presents to the emergency department after a syncopal event. Patient has complex past medical history including recent ST elevation myocardial infarction just discharged from the hospital yesterday. Patient also has history of end-stage renal disease status post renal transplant as well as diabetes. Patient states that he remembers sitting on the toilet and then began to feel faint, he states he remembers waking up on the bathroom floor surrounded by medics. There was no reported seizure-like activity. Patient denies any preceding chest pain or shortness of breath. On arrival here to the ED the patient states he is feeling improved, he denies any chest pain or shortness of breath. Patient is alert and oriented x 3 on arrival. ROS: - Per HPI Differential Diagnosis: Acute coronary syndrome/ST elevation CA, arrhythmia to include ventricular tachycardia, acute CHF exacerbation, vasovagal event, amongst other potential pathologies. *Outpatient medications and allergy history reviewed. PE: General: Alert HEENT: Normocephalic, trachea midline Eyes: Extraocular eye movement is intact, no scleral erythema Pulmonary: Clear to auscultation bilaterally, no wheezing Cardio: Regular rate and rhythm GI: Abdomen is soft to palpation : No suprapubic tenderness MSK: No evidence of trauma or malformation of the extremities, no edema Skin: No evidence of rash Neuro: Alert, no focal deficits Psychiatric: Cooperative INDEPENDENT INTERPRETATIONS: equipment monitor phototypesetting: (As interpreted by myself): - An order was placed for continuous cardiac monitoring - Patient was noted to be in sinus rhythm with a rate of 75 EKG: (As interpreted by myself): Rate: 75 Rhythm: Normal sinus rhythm Intervals: QRS 122 ms, otherwise within normal limits ST changes: No ST elevation Time: 2306 Chest x-ray: (As interpreted by myself): No acute disease Interventions provided in ED: - IV fluid bolus Medical Decision Making: IV was established and lab work obtained, patient was placed on cardiac monitor technician. EKG was reviewed by myself, I do not see any evidence of any obvious ST elevation CA, changes from previous EKG that showed STEMI are much less pronounced in the inferior leads. Patient denies any chest pain or shortness of breath. Lab work shows a mild leukocytosis at 12.09, hemoglobin is stable at 11.2, platelet count is normal, CMP does not show any evidence of any critical findings, troponin was elevated at 5136, this is down trended from 23,154 on 08/29. Patient remained in sinus rhythm on the monitor while here in the ED. On my reassessment he is sleeping, his is at the bedside. I explained all of the above to the patient and his , I did recommend admission given his syncopal event with recent STEMI for observation, telemetry, and cardiology consultation. Patient remains chest pain-free on my reevaluation, he is in agreement for admission. I discussed the patient's presentation with the on- call hospitalist, Dr. Maloney, and the patient was placed for admission in stable condition. Consultants/Discussions held with other healthcare providers: - Hospitalist, Dr. Maloney Disposition discussion held by myself with: - Patient and patient's at the bedside Diagnosis: 1. Syncope, acute 2. History of ACS with recent STEMI 3. Elevated high-sensitivity troponin Disposition: Admission Dong Muñiz DO Emergency Medicine Past Med/Surg History Problem List (Updated 09/05/25 @ 01:15 by Dong Muñiz DO) Syncope (Acute) Asymptomatic PVCs ST elevation (STEMI) myocardial infarction (Acute) Bradycardia Hypoxic respiratory failure STEMI (ST elevation myocardial infarction) Cellulitis of left foot Dry gangrene Chronic ulcer of left foot with fat layer exposed Wound of left foot Gram-positive bacteremia Chronic osteomyelitis involving ankle and foot Intractable nausea and vomiting (Acute 02/22/14) Dilated pupil (Acute 02/22/14) Peritoneal dialysis status (Chronic) Autonomic neuropathy (Chronic) Abscess (Acute) Altered mental status (Acute) Cellulitis of back (Acute) End stage renal disease (Acute) Hyperphosphatemia (Acute) Hx of kidney transplant September 2017 Pre[facility] Albarran Finger infection (Acute) Diabetes mellitus with hyperglycemia (Acute) Hypertension Hyperlipidemia Diabetic foot infection (Acute) Ulcer of right heel and midfoot, limited to breakdown of skin Osteomyelitis Immunocompromised (Acute) Osteomyelitis (Acute) Renal transplant recipient (Acute) Medical History Failure of outpatient treatment Infected surgical wound Ulcer of right foot due to type 2 diabetes mellitus Fever History of peritoneal dialysis Gastroparesis Diabetes Surgical History Status post right foot surgery Family History Father Colorectal cancer Mother Diabetes Social History Smoking Status: Never smoker Tobacco Type: Smokeless Tobacco (Dip or Chew) Second Hand Exposure: No; Do You Dip or Chew Tobacco: Yes; Hx Alcohol Use: Yes Alcohol type: beer Hx Substance Use: No Preferred Language: Tanzanian Communication Ability: Effective 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 Beliefs That Will Affect Care: None marital status: Current Living Situation: Spouse Feels Safe at Home: Yes Assistive Devices: Cane Allergies Allergies Allergy/AdvReac Type Severity Reaction Status Date / Time bee venom protein (honey bee) Allergy Severe SHORTNESS Verified 09/05/25 00:36 OF BREATH ondansetron Allergy Intermediate OVER ALL Verified 09/05/25 00:36 SWELLING Home Meds Home Medications Medication Instructions Recorded Confirmed aspirin 81 mg tablet,delayed 81 mg PO QAM 09/11/19 09/05/25 release (Alejo Low Dose Aspirin) epinephrine 0.3 mg/0.3 mL 0.3 mg subcut DIRECTED PRN 09/11/19 09/05/25 injection, auto-injector (EpiPen) Anaphylaxis insulin lispro 100 unit/mL 15 unit subcut AC PRN PUMP FAILURE 09/11/19 09/05/25 subcutaneous pen (Humalog KwikPen (U-100) Insulin) rosuvastatin 20 mg tablet (Crestor) 20 mg PO QAM 09/11/19 09/05/25 tamsulosin 0.4 mg capsule (Flomax) 0.4 mg PO HS 09/11/19 09/05/25 pregabalin 225 mg capsule 225 mg PO QPM 12/08/23 09/05/25 diltiazem HCl 240 mg 240 mg PO DAILY 06/12/25 09/05/25 capsule,extended release 24 hr Lactobacillus acidophilus 10 10,000 mmu cells PO DAILY 08/28/25 09/05/25 billion cell capsule (Probiotic) glucagon 1 mg/0.2 mL subcutaneous 1 mg subcut DIRECTED PRN 08/28/25 09/05/25 auto-injector (Gvoke HypoPen UNRESPONSIVE W/HYPOGLYCEMIA 2-Pack) insulin glargine 100 unit/mL (3 0 unit subcut DIRECTED 08/28/25 09/05/25 mL) subcutaneous pen (Lantus Solostar U-100 Insulin) insulin lispro 100 unit/mL 1 sliding scale dose continuous 08/28/25 09/05/25 subcutaneous solution subcutaneous infusion USEASDIRECTD insulin lispro 100 unit/mL 1 sliding scale dose continuous 08/28/25 09/05/25 subcutaneous solution (Humalog subcutaneous infusion USEASDIRECTD U-100 Insulin) sildenafil 50 mg tablet 50 mg PO DAILY PRN Sexual Activity 08/28/25 09/05/25 tacrolimus 1 mg capsule, 0.5 mg PO QPM 08/28/25 09/05/25 immediate-release tacrolimus 1 mg capsule, 1 mg PO QAM 08/28/25 09/05/25 immediate-release Previous Rx's Medication Instructions Recorded mycophenolate sodium 180 mg 360 mg (2 x 180 mg) PO BID #120 04/21/22 tablet,delayed release tabs prasugrel HCl 10 mg tablet 10 mg PO QAM 30 days #30 tabs 09/03/25 Results & Data (ED) Vital Signs Vital Signs - 24 hr 09/04/25 23:03 09/04/25 23:03 09/04/25 23:04 Temperature 37.1 C Temperature Source Oral Pulse Rate 79 Respiratory Rate 18 Respiratory Effort / Characteristics Non-Labored Respiratory Depth Normal Respiratory Pattern Regular Blood Pressure 105/73 Blood Pressure Mean 83 Pulse Oximetry 95 Oxygen Delivery Method Room Air Room Air Room Air Sepsis Recent Fever Within 48 Hours No Sepsis New/Unexplained Change in Mental Status No Sepsis Action Taken by Nursing No Action Required Laboratory Data 09/04/25 23:21 09/04/25 23:21 Lab Results 09/04/25 Range/Units 23:21 WBC 12.09 H (4.8-10.8) K/ul RBC 3.81 L (4.70-6.10) M/uL Hgb 11.2 L (14.0-18.0) g/dL Hct 33.9 L (42.0-52.0) % MCV 89.0 (80.0-100.0) fL MCH 29.4 (25.0-34.0) pg MCHC 33.0 (32.0-36.0) g/dL RDW Std Deviation 45.0 (36.4-46.3) fL RDW Coeff of Dandre 13.7 (11.5-14.5) % Plt Count 395 (130-400) K/uL MPV 9.7 (9.4-12.4) fL Immature Gran % (Auto) 0.9 % Neut % (Auto) 80.1 % Lymph % (Auto) 8.4 % [place] % (Auto) 9.7 % Eos % (Auto) 0.7 % Baso % (Auto) 0.2 % Neut # (Auto) 9.67 H (1.40-6.50) K/uL Lymph # (Auto) 1.02 L (1.20-3.40) K/uL [place] # (Auto) 1.17 H (0.11-0.59) K/uL Eos # (Auto) 0.09 (0.00-0.50) K/uL Baso # (Auto) 0.03 (0.00-0.20) K/uL Immature Gran # (Auto) 0.11 (0.01-0.20) K/uL PT 14.0 H (9.0-12.0) Seconds INR 1.3 H (0.9-1.1) APTT 33 H (21-31) Seconds PTT Ratio 1.2 Sodium 130 L (136-145) mmol/L Potassium 4.3 (3.5-5.1) mmol/L Chloride 99 (98-107) mmol/L Carbon Dioxide 21 (21-32) mmol/L Anion Gap 10 (3-11) BUN 30 H (6-23) mg/dl Creatinine 1.29 (0.6-1.4) mg/dl Est Cr Clr Drug Dosing 85.8 ml/min eGFR 63.48 BUN/Creatinine Ratio 23.3 H (10-20) Glucose 204 H (70-99(Fasting)) mg/dl Calcium 8.7 (8.6-10.3) mg/dl Total Bilirubin 0.5 (0.2-1.0) mg/dl AST 31 (13-39) U/L ALT 44 (7-52) U/L Alkaline Phosphatase 146 H (34-104) U/L Troponin I High Sens 5136.1 H* (0-20) pg/ml Total Protein 6.2 (6.0-8.3) gm/dl Albumin 3.0 L (3.4-5.0) gm/dl Globulin 3.2 (2.5-4.0) gm/dl Albumin/Globulin Ratio 0.9 (0.9-2) Lipase 14 (11-82) U/L Administered Medications Discontinued Medications Sodium Chloride (Nss) 1,000 mls @ 999 mls/hr IV .Q1H1M STA Stop: 09/05/25 00:03 Last Admin: 09/05/25 00:19 Dose: 999 mls/hr Documented By: NAW Imaging Data Radiologist's Impression: Chest X-Ray 09/04/25 23:03 Exam(s): XR CXR 1 VIEW EXAM: XR Chest, 1 View CLINICAL HISTORY: Reason for exam: syncope. TECHNIQUE: Frontal view of the chest. COMPARISON: 08/30/2025 FINDINGS: A Port-A-Cath is noted with its tip in the region the right atrium. Lungs: No consolidation. Pleural space: No pleural effusion is seen. No pneumothorax. Heart: Heart is enlarged.. Mediastinum: There is mild uncoiling of thoracic aorta.. Bones/joints: Grossly unremarkable. Additional: A vascular stent is noted in left subclavian region.. IMPRESSION: Cardiomegaly. Electronically signed by: Derek Hill MD 09/05/25 01:03 AM Discharge Plan Visit Data Chief Complaint: Syncope Stated Complaint: Syncope ED Provider: Dong Muñiz Discharge Problem: Syncope Patient Disposition: Admitted As Inpatient Condition: Fair Forms Stand Alone Forms: [facility] Prescriptions Prescriptions: No Action aspirin [Alejo Low Dose Aspirin] 81 mg Tablet,Delayed Release (Dr/Ec) 81 mg PO QAM tamsulosin [Flomax] 0.4 mg capsule 0.4 mg PO HS epinephrine [EpiPen] 0.3 mg/0.3 mL auto-injector 0.3 mg subcut DIRECTED PRN (Reason: Anaphylaxis) rosuvastatin [Crestor] 20 mg tablet 20 mg PO QAM insulin lispro [Humalog KwikPen Insulin] 100 unit/mL insulin pen 15 unit SUBCUT AC MDD 45 UNITS/24 HRS PRN (Reason: PUMP FAILURE) Rx Instructions: uses with omni pod mycophenolate sodium 180 mg tablet,delayed release (DR/EC) 360 mg PO BID Qty: 120 0RF Hold Instructions: Resume on 12/18/23. pregabalin 225 mg capsule 225 mg PO QPM diltiazem HCl 240 mg capsule,extended release 24hr 240 mg PO DAILY sildenafil 50 mg Tablet 50 mg PO DAILY PRN (Reason: Sexual Activity) Rx Instructions: administer 30 minutes to 4 hours before activity insulin lispro [Humalog U-100 Insulin] 100 unit/mL Solution 1 sliding scale dose continuous subcutaneous infusion USEASDIRECTD MDD 200 UNITS/2 DAYS Rx Instructions: OMNIPOD insulin lispro 100 unit/mL Solution 1 sliding scale dose continuous subcutaneous infusion USEASDIRECTD tacrolimus 1 mg capsule 1 mg PO QAM tacrolimus 1 mg capsule 0.5 mg PO QPM insulin glargine [Lantus Solostar U-100 Insulin] 100 unit/mL (3 mL) Insulin Pen 0 unit SUBCUT DIRECTED MDD 54 UNITS TDD Rx Instructions: PUMP FAILURE Lactobacillus acidophilus [Probiotic] 10 billion cell Capsule 10,000 mmu cells PO DAILY Gvoke HypoPen 2-Pack 1 mg/0.2 mL Auto-Injector 1 mg SUBCUT DIRECTED PRN (Reason: UNRESPONSIVE W/HYPOGLYCEMIA) prasugrel HCl 10 mg Tablet 10 mg PO QAM 30 Days Qty: 30 0RF Referrals Referrals: Melissa Castillo DO [Primary Care Provider] - Discharge Problem: Syncope Qualifiers: Encounter type: initial encounter
[2025-09-05 00:03] LABS: Hematocrit (blood only) 33.9 % (42.0-52.0); Hemoglobin 11.2 g/dL (14.0-18.0); Immature Granulocytes # (auto) 0.11 K/uL (0.01-0.20); Immature Granulocytes % (auto) 0.9 %; Mean Corpuscular Hemoglobin 29.4 pg (25.0-34.0); Mean Corpuscular Volume 89.0 fL (80.0-100.0); Platelet Count 395 K/uL (130-400); RDW Standard Deviation 45.0 fL (36.4-46.3); Red Blood Count 3.81 M/uL (4.70-6.10); White Blood Count 12.09 K/ul (4.8-10.8)
[2025-09-05 00:15] LABS: Alanine Aminotransferase 44.0 U/L (7-52); Albumin Globulin Ratio 0.9 (0.9-2); Albumin Level 3.0 gm/dl (3.4-5.0); Alkaline Phosphatase 146.0 U/L (34-104); Anion Gap 10.0 (3-11); Bilirubin,Total 0.5 mg/dl (0.2-1.0); Blood Urea Nitrogen 30.0 mg/dl (6-23); Calcium 8.7 mg/dl (8.6-10.3); Carbon Dioxide 21.0 mmol/L (21-32); Chloride 99.0 mmol/L (98-107); Creatinine Clr Calc Pharmacy 85.8 ml/min; Globulin 3.2 gm/dl (2.5-4.0); Glucose 204.0 mg/dl (70-99(Fasting)); Lipase 14.0 U/L (11-82); Potassium 4.3 mmol/L (3.5-5.1); Sodium 130.0 mmol/L (136-145); Total Protein 6.2 gm/dl (6.0-8.3)
[2025-09-05] MEDS: SODIUM CHLORIDE 0.9% 1,000 ML IV STA (00:19)
[2025-09-05 00:27] LABS: INR 1.3 (0.9-1.1); Partial Thromboplastin Time 33 Seconds (21-31); Prothrombin Time 14.0 Seconds (9.0-12.0)
--- NOTE | 2025-09-05 01:05 | XRay Report ---
Exam(s): XR CXR 1 VIEW EXAM: XR Chest, 1 View CLINICAL HISTORY: Reason for exam: syncope. TECHNIQUE: Frontal view of the chest. COMPARISON: 08/30/2025 FINDINGS: A Port-A-Cath is noted with its tip in the region the right atrium. Lungs: No consolidation. Pleural space: No pleural effusion is seen. No pneumothorax. Heart: Heart is enlarged.. Mediastinum: There is mild uncoiling of thoracic aorta.. Bones/joints: Grossly unremarkable. Additional: A vascular stent is noted in left subclavian region.. IMPRESSION: Cardiomegaly. Electronically signed by: Derek Hill MD 09/05/25 01:03 AM
--- NOTE | 2025-09-05 01:18 | History & Physical Report ---
Date of Service September 05, 2025 Assessment & Plan (1) Syncope: Plan: Assessment and plan below following discussion of case with ED provider and reviewing patient history/pertinent normal/abnormal diagnostic test results. Syncope Possible orthostasis hx orthostatic hypotension/autonomic neuropathy as per records, Borderline BP upon arrival at the ER Acute on chronic hyponatremia chronic systolic heart failure (EF 45%, TTE 2024), patient euvolemic hx CAD status post PCI (2024) hx complete heart block status post transvenous pacemaker PAF, patient NSR hyperlipidemia, on statin Rx PAD MATT on CPAP DM2 on insulin pump, suboptimal control as of recent hemoglobin A1c of 9 from last month, patient does not have home insulin supplies with him currently. ESRD status post kidney transplant on chronic antirejection regimen (baseline creatinine 1.3) progressive anemia, noted during recent confinement, patient unaware of overt bleed symptoms BPH, on Flomax past tobacco abuse OBS Admit to PCU Check orthostatic vitals Initiate midodrine if positive Hold Cardizem for now Hyponatremia workup, recheck serum sodium after initial fluid bolus given at the ER Cardiology consult re: syncope, recent PCI, follow-up eval Anemia workup Pharmacy glycemic control consultation PT OT eval prior to discharge DVT prophylaxis. Lovenox subcu Full code Patient requesting updates providers. Ms. Machadobeth Dashawn, contact #[phone]. Text document was generated using [employer] voice recognition software. It may contain grammatical or spelling errors. Kindly contact undersigned for clarification of any documentation item in question. ADDENDUM : 230A Positive orthostatic vitals noted on the floor. SBP sitting 110, SBP standing 89 Initiate midodrine. Recheck orthostatic vitals after 24 hours. History of Present Illness Chief Complaint: Syncope Primary Care Provider: Melissa Castillo DO History obtained from patient and records. Medical history significant for chronic systolic heart failure (EF 45%, TTE 2024), CAD status post PCI (2024), PAF, hypertension, hyperlipidemia, PAD, MATT on CPAP, DM2 on insulin pump, ESRD status post kidney transplant on chronic antirejection regimen (baseline creatinine 1.3), chronic hyponatremia, chronic anemia (baseline hemoglobin 11-12), orthostatic hypotension/autonomic neuropathy as per records, BPH, past tobacco abuse. Recent confinement August 29 to September 03, 2025 for STEMI status post PCI (DARCI x 3 to RCA, DARCI x 1 to OM 2). Temporary pacing done for complete heart block. EF 45% on TTE. Cardiology recommended 14-day ZIO monitor on discharge. Patient had a syncopal event as he stood up with helping him from the commode. Denies bearing down excessively. Denies chest pain or unusual SOB. Usual left-sided back pain complaints from past admission. Denies abdominal pain or bleeding concerns. No headache, no witnessed seizures. No head trauma. Patient not sure if he had a pulse. She gave him rescue breathing because it seemed like patient was not breathing. Patient unresponsive for about 10 minutes as per . SBP 100s upon arrival at the ER. 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 Allergies Allergy/AdvReac Type Severity Reaction Status Date / Time bee venom protein (honey bee) Allergy Severe SHORTNESS Verified 09/05/25 00:36 OF BREATH ondansetron Allergy Intermediate OVER ALL Verified 09/05/25 00:36 SWELLING Home Medications Medication Instructions Recorded Confirmed Type aspirin 81 mg tablet,delayed 81 mg PO QAM 09/11/19 09/05/25 History release (Alejo Low Dose Aspirin) epinephrine 0.3 mg/0.3 mL 0.3 mg subcut DIRECTED PRN 09/11/19 09/05/25 History injection, auto-injector (EpiPen) Anaphylaxis insulin lispro 100 unit/mL 15 unit subcut AC PRN PUMP FAILURE 09/11/19 09/05/25 History subcutaneous pen (Humalog KwikPen (U-100) Insulin) rosuvastatin 20 mg tablet (Crestor) 20 mg PO QAM 09/11/19 09/05/25 History tamsulosin 0.4 mg capsule (Flomax) 0.4 mg PO HS 09/11/19 09/05/25 History mycophenolate sodium 180 mg 360 mg (2 x 180 mg) PO BID #120 04/21/22 09/05/25 Rx tablet,delayed release tabs pregabalin 225 mg capsule 225 mg PO QPM 12/08/23 09/05/25 History diltiazem HCl 240 mg 240 mg PO DAILY 06/12/25 09/05/25 History capsule,extended release 24 hr Lactobacillus acidophilus 10 10,000 mmu cells PO DAILY 08/28/25 09/05/25 History billion cell capsule (Probiotic) glucagon 1 mg/0.2 mL subcutaneous 1 mg subcut DIRECTED PRN 08/28/25 09/05/25 History auto-injector (Gvoke HypoPen UNRESPONSIVE W/HYPOGLYCEMIA 2-Pack) insulin glargine 100 unit/mL (3 0 unit subcut DIRECTED 08/28/25 09/05/25 History mL) subcutaneous pen (Lantus Solostar U-100 Insulin) insulin lispro 100 unit/mL 1 sliding scale dose continuous 08/28/25 09/05/25 History subcutaneous solution subcutaneous infusion USEASDIRECTD insulin lispro 100 unit/mL 1 sliding scale dose continuous 08/28/25 09/05/25 History subcutaneous solution (Humalog subcutaneous infusion USEASDIRECTD U-100 Insulin) sildenafil 50 mg tablet 50 mg PO DAILY PRN Sexual Activity 08/28/25 09/05/25 History tacrolimus 1 mg capsule, 0.5 mg PO QPM 08/28/25 09/05/25 History immediate-release tacrolimus 1 mg capsule, 1 mg PO QAM 08/28/25 09/05/25 History immediate-release prasugrel HCl 10 mg tablet 10 mg PO QAM 30 days #30 tabs 09/03/25 09/05/25 Rx Past Med/Surg History Problem List (Updated 09/05/25 @ 01:15 by Dong Muñiz, ) Syncope (Acute) Asymptomatic PVCs ST elevation (STEMI) myocardial infarction (Acute) Bradycardia Hypoxic respiratory failure STEMI (ST elevation myocardial infarction) Cellulitis of left foot Dry gangrene Chronic ulcer of left foot with fat layer exposed Wound of left foot Gram-positive bacteremia Chronic osteomyelitis involving ankle and foot Intractable nausea and vomiting (Acute 02/22/14) Dilated pupil (Acute 02/22/14) Peritoneal dialysis status (Chronic) Autonomic neuropathy (Chronic) Abscess (Acute) Altered mental status (Acute) Cellulitis of back (Acute) End stage renal disease (Acute) Hyperphosphatemia (Acute) Hx of kidney transplant September 2017 Pre[facility] Albarran Finger infection (Acute) Diabetes mellitus with hyperglycemia (Acute) Hypertension Hyperlipidemia Diabetic foot infection (Acute) Ulcer of right heel and midfoot, limited to breakdown of skin Osteomyelitis Immunocompromised (Acute) Osteomyelitis (Acute) Renal transplant recipient (Acute) Medical History Failure of outpatient treatment Infected surgical wound Ulcer of right foot due to type 2 diabetes mellitus Fever History of peritoneal dialysis Gastroparesis Diabetes Surgical History Status post right foot surgery Family History Father Colorectal cancer Mother Diabetes Social History Smoking Status: Never smoker Tobacco Type: Smokeless Tobacco (Dip or Chew) Second Hand Exposure: No; Do You Dip or Chew Tobacco: Yes; Tobacco Cessation Education Requested by Patient: No Hx Alcohol Use: Yes Alcohol type: beer Hx Substance Use: No Preferred Language: Luxembourger Communication Ability: Effective Cooling Tower Technician Required: No Beliefs That Will Affect Care: None marital status: Current Living Situation: Spouse Other Information That Helps Us Care for You: No Feels Safe at Home: No Is there a partner from a previous relationship who is making you feel unsafe now?: No Any Concerns about Your Family Situation: No Would You Like to Speak to Someone About Your Situation: No Safety Concerns: Feels Safe At This Time Assistive Devices: Cane, Denture - Upper, Denture - Lower and Glasses Review of Systems Review of Systems: As per HPI, all other systems reviewed and negative Physical Exam Physical Exam: GENERAL: Comfortable, obese, pleasant, no respiratory distress SKIN: Pallor, warm HEENT: Pale palpebral conjunctivae, no ptosis, dry buccal mucosa NECK : Supple, no tenderness CHEST : CTA, no tenderness HEART : RRR, no obvious murmurs ABDOMEN: Some distention, nontender EXTREMITIES : No LE swelling, no LE tenderness, palpable pulses, no other conspicuous deformities noted NEUROLOGIC : Coherent, no facial asymmetry, no other gross focality Results & Data Results & Data Vital Signs (Past 12 Hours) Vital Signs Temp Pulse Resp BP Pulse Ox O2 Del Method 09/04/25 23:04 37.1 C 79 18 105/73 95 Room Air 09/04/25 23:03 Room Air 09/04/25 23:03 Room Air Laboratory Results Laboratory Results WBC 12.09 K/ul (4.8-10.8) H 09/04/25 23:21 RBC 3.81 M/uL (4.70-6.10) L 09/04/25 23:21 Hgb 11.2 g/dL (14.0-18.0) L 09/04/25 23:21 Hct 33.9 % (42.0-52.0) L 09/04/25 23:21 MCV 89.0 fL (80.0-100.0) 09/04/25 23:21 MCH 29.4 pg (25.0-34.0) 09/04/25 23:21 MCHC 33.0 g/dL (32.0-36.0) 09/04/25 23:21 RDW Std Deviation 45.0 fL (36.4-46.3) 09/04/25 23:21 RDW Coeff of Dandre 13.7 % (11.5-14.5) 09/04/25 23:21 Plt Count 395 K/uL (130-400) 09/04/25 23:21 MPV 9.7 fL (9.4-12.4) 09/04/25 23:21 Immature Gran % (Auto) 0.9 % 09/04/25 23:21 Neut % (Auto) 80.1 % 09/04/25 23:21 Lymph % (Auto) 8.4 % 09/04/25 23:21 Ness % (Auto) 9.7 % 09/04/25 23:21 Eos % (Auto) 0.7 % 09/04/25 23:21 Baso % (Auto) 0.2 % 09/04/25 23:21 Neut # (Auto) 9.67 K/uL (1.40-6.50) H 09/04/25 23:21 Lymph # (Auto) 1.02 K/uL (1.20-3.40) L 09/04/25 23:21 Ness # (Auto) 1.17 K/uL (0.11-0.59) H 09/04/25 23:21 Eos # (Auto) 0.09 K/uL (0.00-0.50) 09/04/25 23:21 Baso # (Auto) 0.03 K/uL (0.00-0.20) 09/04/25 23:21 Immature Gran # (Auto) 0.11 K/uL (0.01-0.20) 09/04/25 23:21 PT 14.0 Seconds (9.0-12.0) H 09/04/25 23:21 INR 1.3 (0.9-1.1) H 09/04/25 23:21 APTT 33 Seconds (21-31) H 09/04/25 23:21 PTT Ratio 1.2 09/04/25 23:21 Sodium 130 mmol/L (136-145) L 09/04/25 23:21 Potassium 4.3 mmol/L (3.5-5.1) 09/04/25 23:21 Chloride 99 mmol/L (98-107) 09/04/25 23:21 Carbon Dioxide 21 mmol/L (21-32) 09/04/25 23:21 Anion Gap 10 (3-11) 09/04/25 23:21 BUN 30 mg/dl (6-23) H 09/04/25 23:21 Creatinine 1.29 mg/dl (0.6-1.4) 09/04/25 23:21 Est Cr Clr Drug Dosing 85.8 ml/min 09/04/25 23:21 eGFR 63.48 09/04/25 23:21 BUN/Creatinine Ratio 23.3 (10-20) H 09/04/25 23:21 Glucose 204 mg/dl (70-99(Fasting)) H 09/04/25 23:21 Calcium 8.7 mg/dl (8.6-10.3) 09/04/25 23:21 Total Bilirubin 0.5 mg/dl (0.2-1.0) 09/04/25 23:21 AST 31 U/L (13-39) 09/04/25 23:21 ALT 44 U/L (7-52) 09/04/25 23:21 Alkaline Phosphatase 146 U/L (34-104) H 09/04/25 23:21 Troponin I High Sens 5136.1 pg/ml (0-20) H* 09/04/25 23:21 Total Protein 6.2 gm/dl (6.0-8.3) 09/04/25 23:21 Albumin 3.0 gm/dl (3.4-5.0) L 09/04/25 23:21 Globulin 3.2 gm/dl (2.5-4.0) 09/04/25 23:21 Albumin/Globulin Ratio 0.9 (0.9-2) 09/04/25 23:21 Lipase 14 U/L (11-82) 09/04/25 23:21 Impressions Chest X-Ray 09/04/25 23:03 Exam(s): XR CXR 1 VIEW EXAM: XR Chest, 1 View CLINICAL HISTORY: Reason for exam: syncope. TECHNIQUE: Frontal view of the chest. COMPARISON: 08/30/2025 FINDINGS: A Port-A-Cath is noted with its tip in the region the right atrium. Lungs: No consolidation. Pleural space: No pleural effusion is seen. No pneumothorax. Heart: Heart is enlarged.. Mediastinum: There is mild uncoiling of thoracic aorta.. Bones/joints: Grossly unremarkable. Additional: A vascular stent is noted in left subclavian region.. IMPRESSION: Cardiomegaly. Electronically signed by: Derek Hill MD 09/05/25 01:03 AM Diagnostic Findings EKG as per my interpretation :Rate 75, NSR, normal axis, inferior infarct, ST elevation inferior and lateral leads (1) Syncope Encounter type: initial encounter
[2025-09-05 01:57] LABS: Magnesium 1.8 mg/dl (1.7-2.4)
[2025-09-05] MEDS ORDERED: PHARMACY GLYCEMIC MGMT CONSULT PRN (02:01)
[2025-09-05] MEDS ORDERED: PROMETHAZINE 6.25 MG/50.25 ML BAG IV PRN (02:04)
[2025-09-05] MEDS ORDERED: DEXTROSE 50% 50 ML SYRINGE IV PRN (02:30)
[2025-09-05] MEDS ORDERED: CARBOHYDRATES FOR HYPOGLYCEMIA PO PRN (02:30)
[2025-09-05] MEDS ORDERED: GLUCOSE 40% GEL 15 GM TUBE PO PRN (02:30)
[2025-09-05] MEDS ORDERED: GLUCOSE 10 TAB/TUBE PO PRN (02:30)
[2025-09-05] MEDS ORDERED: GLUCAGON FOR INJ 1 MG VIAL SQ PRN (02:30)
[2025-09-05] MEDS: ASPIRIN CHEW 324 MG PO STA (02:49)
[2025-09-05] MEDS: MAGNESIUM SULFATE / D5W 1 GM/100 ML BAG IV ONE (02:54)
[2025-09-05] MEDS: INSULIN ASPART PER UNIT CHARGE SC SCH (03:07)
[2025-09-05] MEDS: MIDODRINE HCL 2.5 MG TAB PO STA (04:50)
[2025-09-05 06:02] LABS: Hematocrit (blood only) 31.5 % (42.0-52.0); Hemoglobin 10.1 g/dL (14.0-18.0); Immature Granulocytes # (auto) 0.07 K/uL (0.01-0.20); Immature Granulocytes % (auto) 0.7 %; Mean Corpuscular Hemoglobin 28.8 pg (25.0-34.0); Mean Corpuscular Volume 89.7 fL (80.0-100.0); Platelet Count 377 K/uL (130-400); RDW Standard Deviation 45.1 fL (36.4-46.3); Red Blood Count 3.51 M/uL (4.70-6.10); Reticulocytes # 0.040 10^6/uL (0.020-0.100); White Blood Count 10.17 K/ul (4.8-10.8)
[2025-09-05 06:23] LABS: Anion Gap 6.0 (3-11); Blood Urea Nitrogen 27.0 mg/dl (6-23); Calcium 8.6 mg/dl (8.6-10.3); Carbon Dioxide 24.0 mmol/L (21-32); Chloride 102.0 mmol/L (98-107); Creatinine Clr Calc Pharmacy 100.8 ml/min; Glucose 130.0 mg/dl (70-99(Fasting)); Iron 28.0 mcg/dl (35-175); Potassium 4.4 mmol/L (3.5-5.1); Sodium 132.0 mmol/L (136-145); Transferrin 187.0 mg/dl (200-360)
[2025-09-05 06:43] LABS: Ferritin 331.4 ng/ml (8-388)
[2025-09-05 06:48] LABS: Folate (Folic Acid),Ser orPlas 11.54 ng/ml (>5.38); Vitamin B12 254.0 pg/ml (180-914)
[2025-09-05 07:23] VITALS: RESP 18
--- NOTE | 2025-09-05 08:28 | Cardiology Consultation ---
Date of Consultation September 05, 2025 Assessment & Plan (1) Syncope: (2) Orthostatic hypotension: (3) CAD (coronary artery disease): (4) Bradycardia: Plan Assessment: 59 year old medically complex male with recent Acute inferior UT requiring multiple stents (staged PCI) and complete heart block requiring a temporary transvenous pacer that presented to the ER after a witnessed syncopal event. Plan: 1. Syncope 2. Orthostatic Hypotension 3. CAD 4. Bradycardia -Patient with a witnessed syncopal event at home, recently discharged after a complex hospitalization s/p Inferior STEMI with emergent catheterization and staged PCI -Patient had complete heart block requiring a temporary transvenous pacer during course of that hospitalization. Patient had been monitoring on telemetry a minimum of 24 hours following removal of temp pacer wire with no recurrence of heart block, no pauses, no profound bradycardia or arrhythmia. He was to remain off AV hollie blocking agents and have outpatient protracted cardiac monitoring to further assess conduction system disease. -Review of discharge summary shows that patient had been placed on Diltiazem prior to discharge, which was likely the culprit for positive orthostatic blood pressure in the ER setting. -Can not exclude that he may have had underlying conduction disease event also with his syncopal episode. -Patient is receiving gentle IV fluid hydration, reports good oral intake and blood pressures have improved. He is to remain off any AV hollie blocking agents. -Review of telemetry shows SR with no acute events overnight. -When patient is appropriate for discharge, he is to have a ZIO AT monitor applied at our cardiology clinic. I have spoke with our nursing staff to ensure we have one in stock -patient will require close cardiology follow up by both our office and nephrology when he is appropriate for discharge. -Patient remains chest pain free, Troponin are abnormal, but are continuing to downtrend from recent STEMI event -Continue Aspirin 81mg, Prasugrel 10mg, and Crestor -Anti-rejection drugs s/t prior renal transplant as per coordination of nephrology and primary team -Ok to receive midodrine as currently prescribed. Case has been discussed with Dr. Parks. Further recommendations regarding plan of care as per his assessment. I spent a total of 50 minutes on the date of service in preparation, delivery, documentation of the care provided to the patient excluding any time spent in the performance of separately billed services. [facility] Supervising Physician Co-Signing Physician Notes I have personally performed a history and physical examination on the patient. I have reviewed the advance practitioner's documentation, and I agree with, and take responsibility for the plan of care. 59-year-old male with recent hospitalization as detailed above admitted with syncopal episode. Etiology likely related to history of orthostatic hypotension although there are concerns regarding possible underlying conduction disease, symptomatic bradycardia with recent complete heart block requiring temporary pacing and in the setting of ST elevation UT. There are no dysrhythmias on telemetry since admission. Diltiazem discontinued. Recommend avoiding additional AV hollie blocking agents at this time. He may continue low-dose midodrine and gentle hydration. Outpatient ZIO monitor will be placed at time of discharge. Continue dual antiplatelet therapy uninterrupted with recent infarction/PCI. Antirejection medications as per nephrology. Elder Parks DO, [facility] I spent a total of 35 minutes on the date of service in preparation, delivery, and documentation of the care provided to this patient, excluding any time spent in the performance of separately billed services. History of Present Illness Reason for Consultation: syncope and orthostasis Requesting Physician: Deion hospitalist Attending Physician: Colby Yuen MD History of Present Illness HPI: Patient is a 59 year old male with PMHx as outlined below that presented to the ER at a witnessed syncopal event at home. Patient reported that his spouse was helping him stand up from the commode. Of note, patient was recently discharged from [facility] 09/03/2025 after a inferior STEMI s/p emergent catheterization. Patient also required a temporary transvenous pacemaker as he was in complete heart block. Upon seeing patient today in examination he is sitting up on the side of the bed offering no acute concerns, is at bedside. Patient is anxious to go home. Review of records show that patient's discharge summary completed by hospitalist staff had restarted Diltazem 240mg QD. Patient had not been contacted yet for placement of protracted cardiac monitoring as an outpatient due to short duration between discharge and readmission. patient states that he had been feeling dizzy prior to going to the restroom and while sitting on the commode which is why he asked for his to assist him. He denies straining to have a bowel movement. states that he appeared to "be out" for several minutes and she feels that he was not breathing, but unsure if he had a pulse or not. EKG on admission shows NSR wither prior cited inferior infarct, anterolateral infarct. Rate 75bpm. QTC 453ms Positive orthostatic VS in ER. 21 point drop from sitting to standing. Troponin, while elevated is a continued downtrend from his recent STEMI. Cardiac Problem List: 1. CAD with multiple remote stents; Recent inferior STEMI 08/28/2025 s/p PCI with DARCI x3 to the mid-distal RCA. Repeat cath (staged PCI) on 09/02/25 with DARCI of mid OM2 with single drug-eluting stent overlapping distal aspect of prior stent a) CHB at time of initial STEMI requiring temp Trans venous pacer 2. HTN 3. Atrial fibrillation 4. Hx of renal failure s/p renal transplant Sep 2018 5. Hx of peritoneal dialysis 6. Type II DM; insulin dependent 7. Chronic osteomyelitis involving foot and ankle 8. Gastroparesis 9. dyslipidemia Review of telemetry shows SR with rates in the 60's. No acute events overnight. No evidence of bradycardia, no arrhythmia, no pauses and no high grade heart block. Allergies Allergy/AdvReac Type Severity Reaction Status Date / Time bee venom protein (honey bee) Allergy Severe SHORTNESS Verified 09/05/25 00:36 OF BREATH ondansetron Allergy Intermediate OVER ALL Verified 09/05/25 00:36 SWELLING Home Medications Medication Instructions Recorded Confirmed Type aspirin 81 mg tablet,delayed 81 mg PO QAM 09/11/19 09/05/25 History release (Alejo Low Dose Aspirin) epinephrine 0.3 mg/0.3 mL 0.3 mg subcut DIRECTED PRN 09/11/19 09/05/25 History injection, auto-injector (EpiPen) Anaphylaxis insulin lispro 100 unit/mL 15 unit subcut AC PRN PUMP FAILURE 09/11/19 09/05/25 History subcutaneous pen (Humalog KwikPen (U-100) Insulin) rosuvastatin 20 mg tablet (Crestor) 20 mg PO QAM 09/11/19 09/05/25 History tamsulosin 0.4 mg capsule (Flomax) 0.4 mg PO HS 09/11/19 09/05/25 History mycophenolate sodium 180 mg 360 mg (2 x 180 mg) PO BID #120 07/20/22 12/04/25 Rx tablet,delayed release tabs pregabalin 225 mg capsule 225 mg PO QPM 12/08/23 09/05/25 History diltiazem HCl 240 mg 240 mg PO DAILY 06/12/25 09/05/25 History capsule,extended release 24 hr Lactobacillus acidophilus 10 10,000 mmu cells PO DAILY 08/28/25 09/05/25 History billion cell capsule (Probiotic) glucagon 1 mg/0.2 mL subcutaneous 1 mg subcut DIRECTED PRN 08/28/25 09/05/25 History auto-injector (Gvoke HypoPen UNRESPONSIVE W/HYPOGLYCEMIA 2-Pack) insulin glargine 100 unit/mL (3 0 unit subcut DIRECTED 08/28/25 09/05/25 History mL) subcutaneous pen (Lantus Solostar U-100 Insulin) insulin lispro 100 unit/mL 1 sliding scale dose continuous 08/28/25 09/05/25 History subcutaneous solution subcutaneous infusion USEASDIRECTD insulin lispro 100 unit/mL 1 sliding scale dose continuous 08/28/25 09/05/25 History subcutaneous solution (Humalog subcutaneous infusion USEASDIRECTD U-100 Insulin) sildenafil 50 mg tablet 50 mg PO DAILY PRN Sexual Activity 08/28/25 09/05/25 History tacrolimus 1 mg capsule, 0.5 mg PO QPM 08/28/25 09/05/25 History immediate-release tacrolimus 1 mg capsule, 1 mg PO QAM 08/28/25 09/05/25 History immediate-release prasugrel HCl 10 mg tablet 10 mg PO QAM 30 days #30 tabs 09/03/25 09/05/25 Rx Patient History Medical History Failure of outpatient treatment Infected surgical wound Ulcer of right foot due to type 2 diabetes mellitus Fever History of peritoneal dialysis Gastroparesis Diabetes Surgical History Status post right foot surgery Family History Father Colorectal cancer Mother Diabetes Social History Smoking Status: Never smoker Tobacco Type: Smokeless Tobacco (Dip or Chew) Second Hand Exposure: No; Do You Dip or Chew Tobacco: Yes; Tobacco Cessation Education Requested by Patient: No Hx Alcohol Use: Yes Alcohol type: beer Hx Substance Use: No Preferred Language: Citizen Of [place] Communication Ability: Effective Clinical Biostatistician Required: No Beliefs That Will Affect Care: None marital status: Current Living Situation: Spouse Other Information That Helps Us Care for You: No Feels Safe at Home: No Is there a partner from a previous relationship who is making you feel unsafe now?: No Any Concerns about Your Family Situation: No Would You Like to Speak to Someone About Your Situation: No Safety Concerns: Feels Safe At This Time Assistive Devices: Cane, Denture - Upper, Denture - Lower and Glasses Review of Systems Review of Systems: All systems reviewed & are unremarkable except as noted in HPI & below Physical Exam Constitutional: well developed, well nourished and + disheveled; no acute distress and not ill appearing Neck: normal visual inspection and trachea midline Respiratory: normal respiratory effort, lungs clear to auscultation Cardiovascular: RRR, no murmur, no edema Vessels: dorsalis pedis pulses present; no JVD Extremities: no edema Skin: no rashes, warm and dry Psychiatric: A+Ox3, euthymic affect Results & Data Vital Signs (Past 12 Hours) Vital Signs Temp Pulse Resp BP BP Pulse Ox O2 Del Method 09/05/25 07:22 36.2 C L 18 121/84 99 Room Air 09/05/25 03:22 Room Air 09/05/25 02:34 36.8 C 16 110/71 97 Room Air 09/05/25 02:09 Room Air 09/05/25 01:30 68 18 111/81 94 09/05/25 01:00 70 20 104/70 96 09/05/25 00:30 68 22 115/69 94 09/05/25 00:00 74 24 114/87 94 09/04/25 23:30 78 20 114/65 96 09/04/25 23:10 78 09/04/25 23:09 76 18 105/73 94 09/04/25 23:04 37.1 C 79 18 105/73 95 Room Air 09/04/25 23:03 Room Air 09/04/25 23:03 Room Air Laboratory Results Cardiac Enzymes 09/04/25 09/05/25 Range/Units 23:21 01:24 AST 31 (13-39) U/L Troponin I High Sens 5136.1 H* 4901.0 H* (0-20) pg/ml Coagulation 09/04/25 Range/Units 23:21 PT 14.0 H (9.0-12.0) Seconds APTT 33 H (21-31) Seconds CBC 09/04/25 09/05/25 Range/Units 23:21 05:29 WBC 12.09 H 10.17 (4.8-10.8) K/ul RBC 3.81 L 3.51 L (4.70-6.10) M/uL Hgb 11.2 L 10.1 L (14.0-18.0) g/dL Hct 33.9 L 31.5 L (42.0-52.0) % Plt Count 395 377 (130-400) K/uL Neut # (Auto) 9.67 H 7.41 H (1.40-6.50) K/uL Lymph # (Auto) 1.02 L 1.50 (1.20-3.40) K/uL [place] # (Auto) 1.17 H 1.10 H (0.11-0.59) K/uL Eos # (Auto) 0.09 0.07 (0.00-0.50) K/uL Baso # (Auto) 0.03 0.02 (0.00-0.20) K/uL Comprehensive Metabolic Panel 09/04/25 09/05/25 Range/Units 23:21 05:29 Sodium 130 L 132 L (136-145) mmol/L Potassium 4.3 4.4 (3.5-5.1) mmol/L Chloride 99 102 (98-107) mmol/L Carbon Dioxide 21 24 (21-32) mmol/L BUN 30 H 27 H (6-23) mg/dl Creatinine 1.29 1.09 (0.6-1.4) mg/dl Glucose 204 H 130 H (70-99(Fasting)) mg/dl Calcium 8.7 8.6 (8.6-10.3) mg/dl AST 31 (13-39) U/L ALT 44 (7-52) U/L Alkaline Phosphatase 146 H (34-104) U/L Total Protein 6.2 (6.0-8.3) gm/dl Albumin 3.0 L (3.4-5.0) gm/dl Intake and Output 09/04/25 09/05/25 09/05/25 22:59 06:59 14:59 Intake Total 1100 / 1100 Balance 1100 / 1100 Intake: IV 1100 / 1100 Magnesium Sulfate / D5w 1 gm In 100 / 100 100 ml @ 50 mls/hr IV ONE ONE Rx#:[id number] Sodium Chloride 0.9% 1,000 ml @ 1000 / 1000 999 mls/hr IV .Q1H1M STA Rx#: [id number] Other: Weight 120.4 kg Weight Measurement Method Built in [facility] Care Time/CCT Total # of Minutes Spent Total Time Spent with Patient: Total time spent is greater than 50% in coordination of care (as documented) at patient's floor/unit and/or counseling patient: Coding Level of Care Code 07919 IN/OBS CONSULT LVL 5,80M Diagnoses Syncope R55 Encounter type: initial encounter Orthostatic hypotension I95.1 CAD (coronary artery disease) I25.10 Bradycardia R00.1 Time Spent (min) 50 (1) Syncope Encounter type: initial encounter
[2025-09-05] MEDS ORDERED: INSULIN ASPART 100 UNITS/ML VIAL SC PRN (08:30)
[2025-09-05] MEDS: LACTATED RINGER'S 1,000 ML IV SCH (08:48)
[2025-09-05] MEDS: PRASugrel TAB 10 MG TAB PO SCH (08:49)
[2025-09-05] MEDS: ADVANCED PROBIOTIC 625 MG CAPSULE PO SCH (08:49)
[2025-09-05] MEDS: ROSUVASTATIN CALCIUM 20 MG TAB PO SCH (08:49)
[2025-09-05] MEDS: ENOXAPARIN INJ 40 MG/0.4 ML SYR SQ SCH (08:50)
[2025-09-05] MEDS: TACROLIMUS 1 MG CAP PO SCH (10:53)
[2025-09-05] MEDS: MYCOPHENOLATE SODIUM 180 MG TAB PO SCH (10:53)
[2025-09-05] MEDS: Continuous Glucose Monitor SCH (11:30)
[2025-09-05] MEDS: INSULIN, Rapid-Acting PUMP SCH (12:46)
--- NOTE | 2025-09-05 12:59 | Electrocardiogram Report ---
Test Reason : Blood Pressure : */* mmHG Vent. Rate : 75 BPM Atrial Rate : 75 BPM P-R Int : 184 ms QRS Dur : 122 ms QT Int : 406 ms P-R-T Axes : 13 -55 54 degrees QTcB Int : 453 ms Normal sinus rhythm Left axis deviation Inferior infarct (cited on or before 30-Aug-2025) Anterolateral infarct (cited on or before 01-Sep-2025) Abnormal ECG When compared with ECG of 02-Sep-2025 11:44, Questionable change in initial forces of Anterior leads ST less elevated in Lateral leads Confirmed by Korey Clement ([id number]) on 09/05/2025 12:58:49 PM Referred By: REFERRED SELF Confirmed By: Korey Clement
[2025-09-05] MEDS: MIDODRINE HCL 2.5 MG TAB PO SCH (13:44)
[2025-09-05 13:56] VITALS: PULSE 72
--- NOTE | 2025-09-05 14:26 | Communication Note ---
Patient seen and examined at bedside. present. Patient feeling better today. On exam, appears fatigued, RRR. Orthostats positive for orthostatic hypotension. Dry mucous membranes. Na at baseline, creatinine around baseline, elevated BUN/creatinine ratio, trop continues to downtrend from prior admission, TSH and AM cortisol WNL. Patient presenting with syncopal episode likely 2/2 orthostatic hypotension and beta blockade. Stop AV hollie blocking agents. Start fluid resuscitation. PT/OT ordered, recommending SNF. Cardiology consulted given recent STEMi, appreciate recs. Continue home immunosuppressants. Will use home insulin pump. Low B12 level, start supplementation. Date of Service: September 05, 2025
[2025-09-05 15:11] VITALS: BP 123/79; TEMP 97.7; O2SAT 97
[2025-09-05] MEDS: CYANOCOBALAMIN (B-12) 500 MCG TABLET PO SCH (15:38)
[2025-09-05] MEDS ORDERED: HEPARIN 100 UNIT/ML 5ML FLUSH FLUSH PRN (16:32)
--- NOTE | 2025-09-05 17:22 | Discharge Summary ---
Discharge Summary Date of Service September 05, 2025 Principal Dx & Hospital Course #1 = Principal Diagnosis (1) Syncope: Assessment and plan below following discussion of case with ED provider and reviewing patient history/pertinent normal/abnormal diagnostic test results. Syncope Possible orthostasis hx orthostatic hypotension/autonomic neuropathy as per records, Borderline BP upon arrival at the ER Acute on chronic hyponatremia chronic systolic heart failure (EF 45%, TTE 2024), patient euvolemic hx CAD status post PCI (2012, 2024) hx complete heart block status post transvenous pacemaker PAF, patient NSR hyperlipidemia, on statin Rx PAD MATT on CPAP DM2 on insulin pump, suboptimal control as of recent hemoglobin A1c of 9 from last month, patient does not have home insulin supplies with him currently. ESRD status post kidney transplant on chronic antirejection regimen (baseline creatinine 1.3) progressive anemia, noted during recent confinement, patient unaware of overt bleed symptoms BPH, on Flomax past tobacco abuse OBS Admit to PCU Check orthostatic vitals Initiate midodrine if positive Hold Cardizem for now Hyponatremia workup, recheck serum sodium after initial fluid bolus given at the ER Cardiology consult re: syncope, recent PCI, follow-up eval Anemia workup Pharmacy glycemic control consultation PT OT eval prior to discharge DVT prophylaxis. Lovenox subcu Full code Patient requesting updates providers. Ms. Aniya Tamez, contact #[phone]. Text document was generated using [employer] voice recognition software. It may contain grammatical or spelling errors. Kindly contact undersigned for clarification of any documentation item in question. ADDENDUM : 230A Positive orthostatic vitals noted on the floor. SBP sitting 110, SBP standing 89 Initiate midodrine. Recheck orthostatic vitals after 24 hours. Notes For Next Care Provider 59 yo male with pmhx of chronic systolic heart failure (EF 45%, TTE 2024), CAD status post PCI (2024), PAF, hypertension, hyperlipidemia, PAD, MATT on CPAP, DM2 on insulin pump, ESRD status post kidney transplant on chronic antirejection regimen (baseline creatinine 1.3), chronic hyponatremia, chronic anemia (baseline hemoglobin 11-12), orthostatic hypotension/autonomic neuropathy as per records, BPH, past tobacco abuse who came to ED for syncopal episode at home. Had recent STEMI admission. Found to have orthostatic hypotension on admission given fluids. Cardiology consulted, recommended stopping AV hollie blockers. PT/OT consulted, recommended rehab but patient declined. On 09/05/2025 patient medically stable for discharge home. To do: [ ] f/u with cardiology [ ] reinforce need for hydration and outpatient rehab Medication Changes From Visit -see below Admission HPI Per Admitting Provider History obtained from patient and records. Medical history significant for chronic systolic heart failure (EF 45%, TTE 2024), CAD status post PCI (2012, 2024), PAF, hypertension, hyperlipidemia, PAD, MATT on CPAP, DM2 on insulin pump, ESRD status post kidney transplant on chronic antirejection regimen (baseline creatinine 1.3), chronic hyponatremia, chronic anemia (baseline hemoglobin 11-12), orthostatic hypotension/autonomic neuropathy as per records, BPH, past tobacco abuse. Recent confinement August 29 to September 03, 2025 for STEMI status post PCI (DARCI x 3 to RCA, DARCI x 1 to OM 2). Temporary pacing done for complete heart block. EF 45% on TTE. Cardiology recommended 14-day ZIO monitor on discharge. Patient had a syncopal event as he stood up with helping him from the commode. Denies bearing down excessively. Denies chest pain or unusual SOB. Usual left-sided back pain complaints from past admission. Denies abdominal pain or bleeding concerns. No headache, no witnessed seizures. No head trauma. Patient not sure if he had a pulse. She gave him rescue breathing because it seemed like patient was not breathing. Patient unresponsive for about 10 minutes as per . SBP 100s upon arrival at the ER. 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 External ears normal. No rhinorrhea. Moist mucous membranes. Neck: Supple, full range of motion, no observable masses, No meningeal sign. Lungs: No Respiratory distress. CV: RRR, no edema. Abdomen: Soft, nondistended, No rebound tenderness. MSK: No joint swelling, no redness. Skin: No rashes, petechiae, lesions. Normal color per patient. Neuro: Normal Gait, Grossly intact. Psych: Appropriate for situation. Updated Medication List Medication Instructions Recorded Confirmed Type aspirin 81 mg tablet,delayed 81 mg PO QAM 09/11/19 09/05/25 History release (Alejo Low Dose Aspirin) epinephrine 0.3 mg/0.3 mL 0.3 mg subcut DIRECTED PRN 09/11/19 09/05/25 History injection, auto-injector (EpiPen) Anaphylaxis insulin lispro 100 unit/mL 15 unit subcut AC PRN PUMP FAILURE 09/11/19 09/05/25 History subcutaneous pen (Humalog KwikPen (U-100) Insulin) rosuvastatin 20 mg tablet (Crestor) 20 mg PO QAM 09/11/19 09/05/25 History tamsulosin 0.4 mg capsule (Flomax) 0.4 mg PO HS 09/11/19 09/05/25 History mycophenolate sodium 180 mg 360 mg (2 x 180 mg) PO BID #120 04/21/22 09/05/25 Rx tablet,delayed release tabs pregabalin 225 mg capsule 225 mg PO QPM 12/08/23 09/05/25 History Lactobacillus acidophilus 10 10,000 mmu cells PO DAILY 08/28/25 09/05/25 History billion cell capsule (Probiotic) glucagon 1 mg/0.2 mL subcutaneous 1 mg subcut DIRECTED PRN 08/28/25 09/05/25 History auto-injector (Gvoke HypoPen UNRESPONSIVE W/HYPOGLYCEMIA 2-Pack) insulin glargine 100 unit/mL (3 0 unit subcut DIRECTED 08/28/25 09/05/25 History mL) subcutaneous pen (Lantus Solostar U-100 Insulin) insulin lispro 100 unit/mL 1 sliding scale dose continuous 08/28/25 09/05/25 History subcutaneous solution subcutaneous infusion USEASDIRECTD insulin lispro 100 unit/mL 1 sliding scale dose continuous 08/28/25 09/05/25 History subcutaneous solution (Humalog subcutaneous infusion USEASDIRECTD U-100 Insulin) tacrolimus 1 mg capsule, 0.5 mg PO QPM 08/28/25 09/05/25 History immediate-release tacrolimus 1 mg capsule, 1 mg PO QAM 08/28/25 09/05/25 History immediate-release prasugrel HCl 10 mg tablet 10 mg PO QAM 30 days #30 tabs 12/02/25 12/04/25 Rx cyanocobalamin (vitamin B-12) 500 500 mcg PO QAM 30 days #30 tabs 09/05/25 Rx mcg tablet midodrine 2.5 mg tablet 2.5 mg PO TID@0800,1200,1700 30 09/05/25 Rx days #90 tabs Hospital Stay Data Consultations 09/05/25 00:51 ED Decision to Admit Stat 09/05/25 03:29 Consult Cardiology Routine Pending Results Patient Have Any Pending Studies at Discharge: No Discharge Instructions Given to Patient (Per Discharging Provider) Diagnosis: syncope 2/2 orthostatic hypotension Incidental Findings: cardiomegaly Follow Ups: PCP, cardiology 1. Please follow up with PCP, cardiology. 2. Please take medications as prescribed. 3. Please work hard with home physical therapy and occupational therapy. 4. Please stay hydrated! Total Time Total Time Spent Total Time Spent (In Minutes): I spent a total of 35 minutes in direct patient care, including [id number] time with the patient and/or family, reviewing medical records, ordering and reviewing diagnostic tests, and coordinating care with other healthcare providers. This time includes: history taking, physical examination, medical decision making, counseling, ECG interpretation, imaging interpretation, lab interpretation, orders, and education, excluding time spent in the performance of separately billed services.
--- NOTE | 2025-09-05 17:25 | Communication Note ---
Date of Service: September 05, 2025 By CMS guidelines, a determination that the admission or continued stay is not medically necessary has been made by a member of the Utilization Review committee and a physician for this hospital stay. Therefore, a Code 44 will be completed and the inpatient admission will be changed to outpatient.
[2025-09-05] MEDS ORDERED: PREGABALIN 75 MG CAP PO SCH (21:00)
[2025-09-05] MEDS ORDERED: TACROLIMUS 0.5 MG CAP PO SCH (21:00)
[2025-09-05] MEDS ORDERED: TAMSULOSIN HCL 0.4 MG CAP PO SCH (21:00)
[2025-09-06] MEDS ORDERED: ASPIRIN 81 MG ECTAB PO SCH (09:00)
== END 2025-09-05 18:26 | disposition home health service (06) ==
LOC: ED 23:00 → 2S 23:00

== ENCOUNTER 2025-09-11 09:58 | Inpatient (IN) ==
--- NOTE | 2025-09-11 10:19 | Emergency Department Note ---
History of Present Illness General Chief complaint: Cardiac Assessment Stated complaint: HEART FAILURE Time Seen by Provider: 09/11/25 10:18 History of Present Illness This is a 59-year-old male with a history of UT, recent stent placement the presents to the emergency department via private vehicle with complaints of "heart failure". The patient notes he saw his PCP this past Tuesday. He was instructed to carefully watch for signs of weight gain and notes 11 pound over a short period of time. Patient feels "puffy", notes abdomen feels distended in the legs are also edematous. Patient does note he has been hydrating over the past several days. No fevers or chills. No cough or cold symptoms. He does feel weak/lethargic. No chest pain but does feel a bit short of breath. Home Medications Medication Instructions Recorded Confirmed Type aspirin 81 mg tablet,delayed 81 mg PO QAM 09/11/19 09/11/25 History release (Alejo Low Dose Aspirin) epinephrine 0.3 mg/0.3 mL 0.3 mg subcut DIRECTED PRN 09/11/19 09/11/25 History injection, auto-injector (EpiPen) Anaphylaxis insulin lispro 100 unit/mL 15 unit subcut AC PRN PUMP FAILURE 09/11/19 09/11/25 History subcutaneous pen (Humalog KwikPen (U-100) Insulin) rosuvastatin 20 mg tablet (Crestor) 20 mg PO QAM 09/11/19 09/11/25 History tamsulosin 0.4 mg capsule (Flomax) 0.4 mg PO HS 09/11/19 09/11/25 History mycophenolate sodium 180 mg 360 mg (2 x 180 mg) PO BID #120 04/21/22 09/11/25 Rx tablet,delayed release tabs pregabalin 225 mg capsule 225 mg PO QPM 12/08/23 09/11/25 History Lactobacillus acidophilus 10 10,000 mmu cells PO DAILY 08/28/25 09/11/25 History billion cell capsule (Probiotic) glucagon 1 mg/0.2 mL subcutaneous 1 mg subcut DIRECTED PRN 08/28/25 09/11/25 History auto-injector (Gvoke HypoPen UNRESPONSIVE W/HYPOGLYCEMIA 2-Pack) insulin glargine 100 unit/mL (3 0 unit subcut DIRECTED 08/28/25 09/11/25 History mL) subcutaneous pen (Lantus Solostar U-100 Insulin) insulin lispro 100 unit/mL 1 sliding scale dose continuous 08/28/25 09/11/25 History subcutaneous solution subcutaneous infusion USEASDIRECTD insulin lispro 100 unit/mL 1 sliding scale dose continuous 08/28/25 09/11/25 History subcutaneous solution (Humalog subcutaneous infusion USEASDIRECTD U-100 Insulin) tacrolimus 1 mg capsule, 0.5 mg PO QPM 08/28/25 09/11/25 History immediate-release tacrolimus 1 mg capsule, 1 mg PO QAM 08/28/25 09/11/25 History immediate-release prasugrel HCl 10 mg tablet 10 mg PO QAM 30 days #30 tabs 09/03/25 09/11/25 Rx cyanocobalamin (vitamin B-12) 500 500 mcg PO QAM 30 days #30 tabs 09/05/25 09/11/25 Rx mcg tablet midodrine 2.5 mg tablet 2.5 mg PO TID@0800,1200,1700 30 09/05/25 09/11/25 Rx days #90 tabs Allergies Allergy/AdvReac Type Severity Reaction Status Date / Time bee venom protein (honey bee) Allergy Severe SHORTNESS Verified 09/05/25 00:36 OF BREATH ondansetron Allergy Intermediate OVER ALL Verified 09/05/25 00:36 SWELLING Past Med/Surg History Problem List Pericardial effusion Anasarca Acute on chronic HFrEF (heart failure with reduced ejection fraction) (Acute) Paroxysmal atrial fibrillation CAD (coronary artery disease) (Acute) Orthostatic hypotension Syncope (Acute) Asymptomatic PVCs ST elevation (STEMI) myocardial infarction (Acute) Bradycardia Hypoxic respiratory failure STEMI (ST elevation myocardial infarction) Cellulitis of left foot Dry gangrene Chronic ulcer of left foot with fat layer exposed Wound of left foot Gram-positive bacteremia Chronic osteomyelitis involving ankle and foot Intractable nausea and vomiting (Acute 02/22/14) Dilated pupil (Acute 02/22/14) Peritoneal dialysis status (Chronic) Autonomic neuropathy (Chronic) Abscess (Acute) Altered mental status (Acute) Cellulitis of back (Acute) End stage renal disease (Acute) Hyperphosphatemia (Acute) Hx of kidney transplant September 2017 Pre[facility]ran Finger infection (Acute) Diabetes mellitus with hyperglycemia (Acute) Hypertension Hyperlipidemia Diabetic foot infection (Acute) Ulcer of right heel and midfoot, limited to breakdown of skin Osteomyelitis Immunocompromised (Acute) Osteomyelitis (Acute) Renal transplant recipient (Acute) Medical History T2DM (type 2 diabetes mellitus) Failure of outpatient treatment Infected surgical wound Ulcer of right foot due to type 2 diabetes mellitus Fever History of peritoneal dialysis Gastroparesis Diabetes Surgical History Status post right foot surgery Family History Father Colorectal cancer Mother Diabetes Social History Smoking Status: Never smoker Tobacco Type: Smokeless Tobacco (Dip or Chew) Second Hand Exposure: Yes; Do You Dip or Chew Tobacco: Yes; Tobacco Cessation Education Requested by Patient: Yes Hx Alcohol Use: No Hx Substance Use: No Preferred Language: Nigerien Communication Ability: Effective External Grinder Tool Required: No Beliefs That Will Affect Care: None marital status: Current Living Situation: Spouse Other Information That Helps Us Care for You: No Feels Safe at Home: Yes Safety Concerns: Feels Safe At This Time Assistive Devices: Cane, Denture - Upper, Denture - Lower, Glasses and Hearing Aid - Bilateral Review of Systems A total of 10 systems reviewed and were otherwise negative Physical Exam Vital Signs Vital Signs - 24 hr 09/11/25 10:04 09/11/25 10:19 09/11/25 11:50 Temperature 36.6 C Temperature Source Skin Pulse Rate 83 81 Pulse Rate [Apical] Pulse Rhythm Regular Pulse Strength Normal Respiratory Rate 20 Respiratory Effort / Characteristics Non-Labored Spontaneous Respiratory Depth Normal Respiratory Pattern Regular Blood Pressure 109/72 Blood Pressure [Right Arm] Blood Pressure Mean 84 Blood Pressure Mean [Right Arm] Pulse Oximetry 94 94 Oxygen Delivery Method Room Air Room Air Sepsis Recent Fever Within 48 Hours No Sepsis New/Unexplained Change in Mental Status N/A Sepsis Action Taken by Nursing No Action Required 09/11/25 11:58 Temperature Temperature Source Pulse Rate Pulse Rate [Apical] 77 Pulse Rhythm Pulse Strength Respiratory Rate 18 Respiratory Effort / Characteristics Respiratory Depth Respiratory Pattern Blood Pressure Blood Pressure [Right Arm] 137/79 Blood Pressure Mean Blood Pressure Mean [Right Arm] 98 Pulse Oximetry 95 Oxygen Delivery Method Sepsis Recent Fever Within 48 Hours Sepsis New/Unexplained Change in Mental Status Sepsis Action Taken by Nursing VITAL SIGNS - Vital signs and nursing notes were reviewed. Stable and afebrile GENERAL - 59-year-old male appearing his stated age who is in no acute distress. Communicates well with provider and answers questions appropriately. SKIN - Without rashes. HEAD - NC/AT. EYES - PERRL with EOMI bilaterally. Sclera anicteric. NOSE - Midline and without cyanosis. No epistaxis or purulent drainage noted. MOUTH/OROPHARYNX - Without perioral cyanosis. NECK - Neck with FROM. No nuchal rigidity. LUNGS - CTA, mildly diminished breath sounds bilaterally CARDIAC - RRR ABDOMEN - Abdominal contour normal without pulsations or visible masses. BS normoactive all four quadrants. No tenderness, palpable masses, hepatosplenomegaly, or ascites noted. EXTREMITIES - No clubbing or peripheral cyanosis. Mild bilateral lower extremity edema. No erythema +5/5 strength noted in UE/LE bilaterally. NEUROLOGIC - Cranial nerves II through XII grossly intact. PSYCH -alert, oriented and pleasant on exam Course Administered Medications Aspirin (Aspirin 81 Mg Ectab) 81 mg PO [facility] Stop: 10/12/25 08:59 Last Admin: 09/12/25 09:05 Dose: 81 mg Documented By: KIP Cyanocobalamin (Cyanocobalamin (B-12) 500 Mcg Tablet) [facility] [place] [facility] [place]: 10/12/25 08:59 Last Admin: 09/12/25 09:05 Dose: 500 mcg Documented By: KIP Cefazolin Sodium 2,000 mg/ (Syringe) 15 mls @ 3.75 mls/min IV Q8H [facility] Stop: 09/26/25 05:59 Last Admin: 09/12/25 05:33 Dose: 3.75 mls/min Documented By: MAGGIE Insulin Aspart (Insulin, Rapid-Acting Pump) 0 each N/A [facility]; Protocol Stop: 10/11/25 16:29 Last Admin: 09/11/25 20:34 Dose: 2 each Documented By: MAGGIE Co-signed By: LEE Admin: 09/11/25 18:19 Dose: 1 each Documented By: MONA Co-signed By: agw Midodrine (Midodrine Hcl 2.5 Mg Tab) 2.5 mg PO TID@0800,1200,1700 [facility] Stop: 10/11/25 16:59 Last Admin: 09/12/25 09:04 Dose: 2.5 mg Documented By: Admin: 09/11/25 17:12 Dose: 2.5 mg Documented By: PETR Miscellaneous (Continuous Glucose Monitor) 0 each N/A ACHS [facility] Stop: 10/11/25 16:29 Last Admin: 09/11/25 22:00 Dose: Not Given Documented By: Admin: 09/11/25 18:18 Dose: 1 each Documented By: MONA Mycophenolate Sodium (Mycophenolate Sodium 180 Mg Tab) 360 mg PO BID [facility] Stop: 10/11/25 20:59 Last Admin: 09/12/25 09:06 Dose: 360 mg Documented By: Admin: 09/11/25 20:41 Dose: 360 mg Documented By: MAGGIE Pantoprazole Sodium (Pantoprazole 40 Mg Tab) [facility] [place] [place]: 10/12/25 08:59 Last Admin: 09/12/25 09:05 Dose: 40 mg Documented By: KIP Prasugrel (Prasugrel Tab 10 Mg Tab) [facility] [place] [place] [facility] [place]: 10/12/25 08:59 Last Admin: 09/12/25 09:05 Dose: 10 mg Documented By: KIP Pregabalin (Pregabalin 75 Mg Cap) 225 mg PO QPM [facility] Stop: 10/11/25 20:59 Last Admin: 09/11/25 20:29 Dose: 225 mg Documented By: MAGGIE Rosuvastatin Calcium (Rosuvastatin Calcium 20 Mg Tab) 20 mg PO QAM [facility] Stop: 10/12/25 08:59 Last Admin: 09/12/25 09:05 Dose: 20 mg Documented By: KIP Tacrolimus (Tacrolimus 1 Mg Cap) [facility] [place] [place] [facility] [place]: 10/12/25 08:59 Last Admin: 09/12/25 09:06 Dose: 1 mg Documented By: KIP Tacrolimus (Tacrolimus 0.5 Mg Cap) 0.5 mg PO QPM [facility] Stop: 10/11/25 20:59 Last Admin: 09/11/25 20:41 Dose: 0.5 mg Documented By: MLS Tamsulosin HCl (Tamsulosin Hcl 0.4 Mg Cap) 0.4 mg PO HS [facility] Stop: 10/11/25 20:59 Last Admin: 09/11/25 20:41 Dose: 0.4 mg Documented By: MAGGIE Discontinued Medications Furosemide (Furosemide Inj 20 Mg/2 Ml Vial) 20 mg IV ONE ONE Stop: 09/11/25 17:46 Last Admin: 09/11/25 18:19 Dose: 20 mg Documented By: MONA Prednisone (Prednisone 20 Mg Tab) 20 mg PO DAILY [facility] Stop: 10/11/25 17:59 Last Admin: 09/11/25 20:29 Dose: 20 mg Documented By: MAGGIE Medical Decision Making Laboratory Data 09/12/25 05:34 09/12/25 05:34 Lab Results 09/11/25 09/11/25 Range/Units 10:30 10:50 WBC 11.20 H (4.8-10.8) K/ul RBC 3.71 L (4.70-6.10) M/uL Hgb 10.8 L (14.0-18.0) g/dL Hct 33.5 L (42.0-52.0) % MCV 90.3 (80.0-100.0) fL MCH 29.1 (25.0-34.0) pg MCHC 32.2 (32.0-36.0) g/dL RDW Std Deviation 44.9 (36.4-46.3) fL RDW Coeff of Dandre 13.5 (11.5-14.5) % Plt Count 421 H (130-400) K/uL MPV 9.3 L (9.4-12.4) fL Immature Gran % (Auto) 0.4 % Neut % (Auto) 77.5 % Lymph % (Auto) 12.0 % [place] % (Auto) 9.5 % Eos % (Auto) 0.4 % Baso % (Auto) 0.2 % Neut # (Auto) 8.68 H (1.40-6.50) K/uL Lymph # (Auto) 1.34 (1.20-3.40) K/uL [place] # (Auto) 1.06 H (0.11-0.59) K/uL Eos # (Auto) 0.05 (0.00-0.50) K/uL Baso # (Auto) 0.02 (0.00-0.20) K/uL Immature Gran # (Auto) 0.05 (0.01-0.20) K/uL ESR 64 H (0-20) mm/hr PT 14.1 H (9.0-12.0) Seconds INR 1.4 H (0.9-1.1) APTT 38 H (21-31) Seconds PTT Ratio 1.4 Sodium 136 (136-145) mmol/L Potassium 4.3 (3.5-5.1) mmol/L Chloride 103 (98-107) mmol/L Carbon Dioxide 26 (21-32) mmol/L Anion Gap 7 (3-11) BUN 11 (6-23) mg/dl Creatinine 1.13 (0.6-1.4) mg/dl Est Cr Clr Drug Dosing 98.4 ml/min eGFR 74.41 BUN/Creatinine Ratio 9.7 L (10-20) Glucose 200 H (70-99(Fasting)) mg/dl Calcium 9.0 (8.6-10.3) mg/dl Magnesium 1.9 (1.7-2.4) mg/dl Total Bilirubin 0.6 (0.2-1.0) mg/dl AST 10 L (13-39) U/L ALT 15 (7-52) U/L Alkaline Phosphatase 92 (34-104) U/L Troponin I High Sens 633.8 H* (0-20) pg/ml B-Natriuretic Peptide 901 H (0-100) pg/ml Total Protein 6.3 (6.0-8.3) gm/dl Albumin 3.1 L (3.4-5.0) gm/dl Globulin 3.2 (2.5-4.0) gm/dl Albumin/Globulin Ratio 1.0 (0.9-2) Lipase 7 L (11-82) U/L Procalcitonin 0.05 (0-0.5) ng/ml TSH 1.520 (0.300-4.500) uIu/ml Staphylococcus sp PCR DETECTED A (NotDetected) mecA/C-Methicil Resis Gene Not Detected (NotDetected) Staph epidermidis (PCR) DETECTED A (NotDetected) Bld Cult ID Panel PCR See PCR Comment (NotDetected) Imaging Data Radiologist's Impression: Chest X-Ray 09/11/25 10:19 XR chest 1V portable HISTORY: 59 years-old Male weight gain, recent UT COMPARISON: 09/04/2020 TECHNIQUE: AP view the chest FINDINGS: Cardiac silhouette is enlarged. Right IJ [id number] catheter appears stable. A battery pack projects over the left heart border. Pulmonary vascular congestion. A pneumothorax. A vascular stent is seen within the left subclavian distribution. Trace pleural effusions with mild left basilar opacities which have progressed from prior. Bones appear grossly intact. IMPRESSION: 1. Cardiomegaly with pulmonary vascular congestion. 2. Trace pleural effusions with mild left basilar opacities, likely atelectatic. ACT 112: Negative or not required by law. The above report was generated using voice recognition software. It may contain grammatical, syntax or spelling errors. Electronically signed by: Martín Ramos M.D. 09/11/2025 10:53 AM MDM Narrative Patient was seen and evaluated as above in room D01b. Review was performed of nursing notes and vital signs. I did review pertinent previous visits and patient history. After obtaining a thorough history and physical examination the above work up was performed. Patient presents to us today with the above symptoms. There is no chest pain. EKG per my interpretation reveals normal sinus rhythm at a rate of 79 bpm. QTc 456. QRS 110. No ST elevation on this rhythm tracing. There is leukocytosis 11.2. Mild stable anemia with hemoglobin of 10.8. INR 1.4. There is glucose at 200. Troponin elevated at 633. CRP elevated. BNP procalcitonin within normal range making sepsis less likely. TSH reveals euthyroid state. Will note the troponin is much improved compared to previous and the patient has no active chest pain. However, he will require close monitoring in the hospital. Chest x-ray here with cardiomegaly and pulmonary vascular congestion. Trace pleural effusions as well. I did consider diuretics however we will hold off at this time trending careful monitoring in the inpatient setting noting the history of kidney transplant with recent UT and signs of volume overload. Case discussed with the hospitalist service. Please read further documentation regarding his stay. GCS: 15 In the evaluation and treatment of this patient the following differential diagnoses were entertained: UT, PE, pneumonia, volume overload, among others. Impression & Plan Acute on chronic HFrEF (heart failure with reduced ejection fraction), Hx of kidney transplant, CAD (coronary artery disease) Discharge Plan Visit Data Chief Complaint: Cardiac Assessment Stated Complaint: HEART FAILURE ED Provider: Reyes Morales ED Midlevel Provider: Benji Chery Discharge Problem: Acute on chronic HFrEF (heart failure with reduced ejection fraction), Hx of kidney transplant, CAD (coronary artery disease) Patient Disposition: Admitted As Inpatient Condition: Fair Discharge Instructions Interventions: ED Discharge Assessment Last Done: 09/11/25 18:46 Addendum September 12, 2025 09:13 I was consulted by the Advanced Practice Provider and was substantively involved in the patient's visit.This includes aspects of the HPI, MDM, diagnostic interpretations, and disposition/plan. I discussed the case with the SAFIA and agree with the findings and plan as documented in SAFIA Miri's note.
--- NOTE | 2025-09-11 10:55 | XRay Report ---
XR chest 1V portable HISTORY: 59 years-old Male weight gain, recent [place] COMPARISON: 09/04/2020 TECHNIQUE: AP view the chest FINDINGS: Cardiac silhouette is enlarged. Right IJ Bieyfw-w-Mucj catheter appears stable. A battery pack projec ts over the left heart border. Pulmonary vascular congestion. A pneumothorax. A vascular stent is see n within the left subclavian distribution. Trace pleural effusions with mild left basilar opacities w hich have progressed from prior. Bones appear grossly intact. IMPRESSION: 1. Cardiomegaly with pulmonary vascular congestion. 2. Trace pleural effusions with mild left basilar opacities, likely atelectatic. ACT 112: Negative or not required by law. The above report was generated using voice recognition software. It may contain grammatical, syntax o r spelling errors. Electronically signed by: Martín Ramos M.D. 09/11/2025 10:53 AM
[2025-09-11 10:58] LABS: Hematocrit (blood only) 33.5 % (42.0-52.0); Hemoglobin 10.8 g/dL (14.0-18.0); Immature Granulocytes # (auto) 0.05 K/uL (0.01-0.20); Immature Granulocytes % (auto) 0.4 %; Mean Corpuscular Hemoglobin 29.1 pg (25.0-34.0); Mean Corpuscular Volume 90.3 fL (80.0-100.0); Platelet Count 421 K/uL (130-400); RDW Standard Deviation 44.9 fL (36.4-46.3); Red Blood Count 3.71 M/uL (4.70-6.10); White Blood Count 11.20 K/ul (4.8-10.8)
[2025-09-11 11:10] LABS: Alanine Aminotransferase 15.0 U/L (7-52); Albumin Globulin Ratio 1.0 (0.9-2); Albumin Level 3.1 gm/dl (3.4-5.0); Alkaline Phosphatase 92.0 U/L (34-104); Anion Gap 7.0 (3-11); Bilirubin,Total 0.6 mg/dl (0.2-1.0); Blood Urea Nitrogen 11.0 mg/dl (6-23); Calcium 9.0 mg/dl (8.6-10.3); Carbon Dioxide 26.0 mmol/L (21-32); Chloride 103.0 mmol/L (98-107); Creatinine Clr Calc Pharmacy 98.4 ml/min; Globulin 3.2 gm/dl (2.5-4.0); Glucose 200.0 mg/dl (70-99(Fasting)); Lipase 7.0 U/L (11-82); Magnesium 1.9 mg/dl (1.7-2.4); Potassium 4.3 mmol/L (3.5-5.1); Sodium 136.0 mmol/L (136-145); Total Protein 6.3 gm/dl (6.0-8.3)
[2025-09-11 11:24] LABS: INR 1.4 (0.9-1.1); Partial Thromboplastin Time 38 Seconds (21-31); Prothrombin Time 14.1 Seconds (9.0-12.0)
[2025-09-11 11:26] LABS: Thyroid Stimulating Hormone 1.52 uIu/ml (0.300-4.500)
--- NOTE | 2025-09-11 13:18 | History & Physical Report ---
<Statement entered by Kervin Levy, - 09/11/25 16:43> Patient seen and examined. Patient known to author from recent hospitalization. Increased weight gain and LE edema since discharge. He is not on diuretics due to history of kidney transplant. Acute HFrEF. Nephrology and cardio consulted. Will need some form of diuretic this admission. Repeat TTE showing EF decreased to 35%, new pericardial effusion. no tamponade greatly appreciate cardio input I spent a total of 22 minutes coordinating, documenting, and providing care for this patient excluding time spent in the performance of separately billed services. This included personally reviewing all current laboratories and imaging studies, medical reconciliation, outpatient chart review and discussion with specialists Date of Service September 11, 2025 Assessment & Plan (1) Acute on chronic HFrEF (heart failure with reduced ejection fraction): (2) Anasarca: (3) CAD (coronary artery disease): (4) T2DM (type 2 diabetes mellitus): Plan This is a 59-year-old male who has significant past medical history of end- stage renal disease status post kidney transplantation in September 2018 previously maintained on belatacept and mycophenolate. This was interrupted due to insurance coverage and currently on mycophenolate and Prograf. He also has significant history of CAD For which he presented to ED on 08/28 with STEMI. He had an acute distal RCA occlusion in setting of known multivessel coronary artery disease. He underwent successful PCI of RCA with 3 DARCI. He was initially bradycardic requiring temporary pacing for about 24 hours. He was not a candidate for beta-blockade due to bradycardia. Ejection fraction at that time was 45%. Nephrology was consulted during stay due to history of CKD and kidney transplant status. His renal function remained stable throughout h ospital stay. He did require additional left heart cath due to obstruction of OM 2 in which he underwent DARCI x 1 to OM 2. He was discharged home on 09/03 and represented to ED on 09/05 secondary to syncope. It was felt syncope was secondary to orthostasis/autonomic neuropathy. He was started on midodrine. He represents back today with significant edema and anasarca, weight gain and sob. #Acute on Chronic HFrEF #Pericardial Effusion #Anasarca admit to tele will consult nephrology to assist with volume status given renal transplant recipient will also consult cardiology per discussion with Dr. Dodd as echo now revealing a new significant pericardial effusion, work up per cards echo 08/30 EF 45-50%, moderate inferior/post ama will repeat echocardiogram to eval for EF daily weights, I and O, FR 1500ml will defer any diuresis to nephro #CAD #Recent STEMI s/p DARCI x 3 to RCA and x 1 to OM2 #Hx PAF continue med management with asa, prasugrel, crestor BB contraindicated due to bradycardia (pt required temp pacing post cath) #IDDM insulin pump at home a1c 9.0 consult glycemic pharmacy #Chronic hyponatremia sodium stable, monitor bmp #DVT ppx: SCDS for now in event pt needs pericardial procedure, await nephro/cards consults Dispo: admit to PCU with findings of pericardial effusion FULL CODE PCP: Anna Pt was seen and examined in collaboration with Dr. Levy, please see addendum I spent a total of 80 minutes coordinating, documenting and providing care for this patient excluding time spent in the performance of separately billed services or time spent by another provider/QHP. History of Present Illness Chief Complaint: Swelling and bloating x 1 week. Primary Care Provider: Melissa Castillo, This is a 59-year-old male who has significant past medical history of end- stage renal disease status post kidney transplantation in September 2018 previously maintained on belatacept and mycophenolate. This was interrupted due to insurance coverage and currently on mycophenolate and Prograf. He also has significant history of CAD For which he presented to ED on 08/28 with STEMI. He had an acute distal RCA occlusion in setting of known multivessel coronary artery disease. He underwent successful PCI of RCA with 3 DARCI. He was initially bradycardic requiring temporary pacing for about 24 hours. He was not a candidate for beta-blockade due to bradycardia. Ejection fraction at that time was 45%. Nephrology was consulted during stay due to history of CKD and kidney transplant status. His renal function remained stable throughout hospital stay. He did require additional left heart cath due to obstruction of OM 2 in which he underwent DARCI x 1 to OM 2. He was discharged home on 09/03 and represented to ED on 09/05 secondary to syncope. It was felt syncope was secondary to orthostasis/autonomic neuropathy. He was started on midodrine. History obtained from ED provider, patient and at bedside. He reports over the last week he has been hydrating well as he was told to do so at discharge. He had not been monitoring his weights as he was not aware he was supposed to. He reports increased swelling to his lower extremities, arms/hands and bloating of his abdomen. He also reports increased shortness of breath with exertion. He denies any liat chest pain, lightheadedness, dizziness, fever, nausea, vomiting or abdominal pain. He reports normal urination without dysuria, increased urgency or frequency or hematuria. His weight is up approximately 7 lbs from discharge. Allergies Allergy/AdvReac Type Severity Reaction Status Date / Time bee venom protein (honey bee) Allergy Severe SHORTNESS Verified 09/05/25 00:36 OF BREATH ondansetron Allergy Intermediate OVER ALL Verified 09/05/25 00:36 SWELLING Home Medications Medication Instructions Recorded Confirmed Type aspirin 81 mg tablet,delayed 81 mg PO QAM 09/11/19 09/11/25 History release (Alejo Low Dose Aspirin) epinephrine 0.3 mg/0.3 mL 0.3 mg subcut DIRECTED PRN 09/11/19 09/11/25 History injection, auto-injector (EpiPen) Anaphylaxis insulin lispro 100 unit/mL 15 unit subcut AC PRN PUMP FAILURE 09/11/19 09/11/25 History subcutaneous pen (Humalog KwikPen (U-100) Insulin) rosuvastatin 20 mg tablet (Crestor) 20 mg PO QAM 09/11/19 09/11/25 History tamsulosin 0.4 mg capsule (Flomax) 0.4 mg PO HS 09/11/19 09/11/25 History mycophenolate sodium 180 mg 360 mg (2 x 180 mg) PO BID #120 04/21/22 09/11/25 Rx tablet,delayed release tabs pregabalin 225 mg capsule 225 mg PO QPM 12/08/23 09/11/25 History Lactobacillus acidophilus 10 10,000 mmu cells PO DAILY 08/28/25 09/11/25 History billion cell capsule (Probiotic) glucagon 1 mg/0.2 mL subcutaneous 1 mg subcut DIRECTED PRN 08/28/25 09/11/25 History auto-injector (Gvoke HypoPen UNRESPONSIVE W/HYPOGLYCEMIA 2-Pack) insulin glargine 100 unit/mL (3 0 unit subcut DIRECTED 08/28/25 09/11/25 History mL) subcutaneous pen (Lantus Solostar U-100 Insulin) insulin lispro 100 unit/mL 1 sliding scale dose continuous 08/28/25 09/11/25 History subcutaneous solution subcutaneous infusion USEASDIRECTD insulin lispro 100 unit/mL 1 sliding scale dose continuous 08/28/25 09/11/25 History subcutaneous solution (Humalog subcutaneous infusion USEASDIRECTD U-100 Insulin) tacrolimus 1 mg capsule, 0.5 mg PO QPM 08/28/25 09/11/25 History immediate-release tacrolimus 1 mg capsule, 1 mg PO QAM 08/28/25 09/11/25 History immediate-release prasugrel HCl 10 mg tablet 10 mg PO QAM 30 days #30 tabs 09/03/25 09/11/25 Rx cyanocobalamin (vitamin B-12) 500 500 mcg PO QAM 30 days #30 tabs 09/05/25 09/11/25 Rx mcg tablet midodrine 2.5 mg tablet 2.5 mg PO TID@0800,1200,1700 30 09/05/25 09/11/25 Rx days #90 tabs Past Med/Surg History Problem List (Updated 09/11/25 @ 14:13 by Cha Moreno PA-C) Anasarca Acute on chronic HFrEF (heart failure with reduced ejection fraction) Paroxysmal atrial fibrillation CAD (coronary artery disease) Orthostatic hypotension Syncope (Acute) Asymptomatic PVCs ST elevation (STEMI) myocardial infarction (Acute) Bradycardia Hypoxic respiratory failure STEMI (ST elevation myocardial infarction) Cellulitis of left foot Dry gangrene Chronic ulcer of left foot with fat layer exposed Wound of left foot Gram-positive bacteremia Chronic osteomyelitis involving ankle and foot Intractable nausea and vomiting (Acute 02/22/14) Dilated pupil (Acute 02/22/14) Peritoneal dialysis status (Chronic) Autonomic neuropathy (Chronic) Abscess (Acute) Altered mental status (Acute) Cellulitis of back (Acute) End stage renal disease (Acute) Hyperphosphatemia (Acute) Hx of kidney transplant September 2017 [facility] Finger infection (Acute) Diabetes mellitus with hyperglycemia (Acute) Hypertension Hyperlipidemia Diabetic foot infection (Acute) Ulcer of right heel and midfoot, limited to breakdown of skin Osteomyelitis Immunocompromised (Acute) Osteomyelitis (Acute) Renal transplant recipient (Acute) Medical History (Updated 12/10/25 @ 14:13 by Cha Moreno PA-C) T2DM (type 2 diabetes mellitus) Failure of outpatient treatment Infected surgical wound Ulcer of right foot due to type 2 diabetes mellitus Fever History of peritoneal dialysis Gastroparesis Diabetes Surgical History Status post right foot surgery Family History Father Colorectal cancer Mother Diabetes Social History Smoking Status: Never smoker Tobacco Type: Smokeless Tobacco (Dip or Chew) Second Hand Exposure: No; Do You Dip or Chew Tobacco: Yes; Hx Alcohol Use: Yes Alcohol type: beer Hx Substance Use: No Preferred Language: Tristanian Communication Ability: Effective Core Placer Required: No Beliefs That Will Affect Care: None marital status: Current Living Situation: Spouse Feels Safe at Home: No Is there a partner from a previous relationship who is making you feel unsafe now?: No Assistive Devices: Cane Review of Systems Review of Systems: All systems reviewed & are unremarkable except as noted in HPI & below Physical Exam Physical Exam: Constitutional: chronically ill appearing, vitals as above, NAD, sitting up in bed, pleasant, conversing easily Head: Normocephalic, Atraumatic Eyes: conjunctivae normal, anicteric sclerae ENMT: external ear and nose normal, oropharynx normal Neck: trachea midline, no thyromegaly normal visual inspection Respiratory: CTAB, diminished BS at bases, normal inspection, no accessory muscle use Cardiovascular: RRR, no murmur, no edema Chest: normal inspection of chest Abdomen: S, NT, ND, +BS x 4 Musculoskeletal: no cyanosis or clubbing, extremities AROM x 4 Skin: no rashes, warm and dry normal turgor Neurologic: PERRL, EOMI, accommodation nl, no face palsy, no dysarthria CN's II-XI intact bilaterally and moves all extremities Psychiatric: A+Ox3, euthymic affect Results & Data Results & Data Vital Signs (Past 12 Hours) Vital Signs Temp Pulse Pulse Resp BP BP Pulse Ox 09/11/25 11:58 77 18 137/79 95 09/11/25 11:50 81 09/11/25 10:19 94 09/11/25 10:04 36.6 C 83 20 109/72 94 O2 Del Method 09/11/25 11:58 09/11/25 11:50 09/11/25 10:19 Room Air 09/11/25 10:04 Room Air Laboratory Results I have independently reviewed and interpreted patient's admitting labs including CBC, CMP, PTT, PT/INR,pt/inr and troponin. Diagnostic Findings Chest X-Ray 09/11/25 10:19 XR chest 1V portable HISTORY: 59 years-old Male weight gain, recent NH COMPARISON: 09/04/2020 TECHNIQUE: AP view the chest FINDINGS: Cardiac silhouette is enlarged. Right IJ [id number] catheter appears stable. A battery pack projects over the left heart border. Pulmonary vascular congestion. A pneumothorax. A vascular stent is seen within the left subclavian distribution. Trace pleural effusions with mild left basilar opacities which have progressed from prior. Bones appear grossly intact. IMPRESSION: 1. Cardiomegaly with pulmonary vascular congestion. 2. Trace pleural effusions with mild left basilar opacities, likely atelectatic. ACT 112: Negative or not required by law. The above report was generated using voice recognition software. It may contain grammatical, syntax or spelling errors. Electronically signed by: Martín Ramos M.D. 09/11/2025 10:53 AM Code Status & VTE Plan Code Status FULL CODE VTE Prophylaxis Plan VTE Prophylaxis will be ordered: No
--- NOTE | 2025-09-11 14:35 | Nephrology Consultation ---
Date of Consultation September 11, 2025 Assessment & Plan (1) Pericardial effusion: etiology unclear and defer to cardiology expertise >> possible Osman syndrome; another less likely concern is certainly infectious in this transplant patient or other autoimmune process; CRP 8.5 agree w/ low dose prednisone for now colchicine carries higher risks of myopathy particularly in interactions even with tacrolimus (interaction more common w/ cyclosporine) would hold off on colchicine for now but if considered would use lower dose than would be given for renal function in non txplt pt given interaction risk continue cardiac monitoring; no e/o tamponade (2) Acute on chronic HFrEF (heart failure with reduced ejection fraction): he is on RA currently and BP are maintained but increasingly symptomatic agree with heart healthy diet and 1.5 L FR he had one dose of IV lasix 20 mg at about 1800 >> suggest repeat if worsening status overnight and BP maintained and no worries for hypotension (3) Hx of kidney transplant: baseline creatinine 1.1; at/near baseline -daily BMP >continue FK current OP dose >have ordered STAT tacrolimus level to be drawn tonight and sent to [facility] for more rapid turnaround than [facility]; will be needed for /as colchicine use is considered History of Present Illness Reason for Consultation: volume overload in setting of recent STEMI Requesting Physician: Dr Levy Attending Physician: Kervin Levy, DO History of Present Illness 59-year-old male whom I am asked to evaluate for volume overload in the setting of recent STEMI is being admitted today with acute on chronic heart failure reduced ejection fraction and anasarca. Past medical history includes ESRD status post renal transplant September 2018 on belatacept (but currently tacrolimus) and mycophenolate, August 2025 cardiac catheterization for bradycardia at [facility] w/ 2 cardiac caths and DARCI to OM2. MATT on CPAP, PAD, HTN, paroxysmal A fib; DM on insulin; orthostatic hypotension/autonomic neuropathy, prostatic hypertrophy, reformed tobacco user. he returned to the Emergency Department September after September 03 discharge with syncope attributed to orthostasis/autonomic dysfunction and was started on midodrine. Comes back to the Emergency Department today w/ increased edema and exertional dyspnea. Has been hydrating aggressively; has not been doing daily weights. TTE today shows decline in EF since 08/30 study to 30-35% from 45-50% and new moderate/large pericardial effusion. No fever chills. No acute illnesses since recent discharge for him or his who is the only other household member. No new joint or muscle pain no acute visual changes. He has been noticing worsening lower extremity edema and increased abdominal girth and bloating; no pain over allograft. Also worsening exertional dyspnea. He is noticing that since midday he is having more orthopnea and increasing dyspnea. No chest pain no orthostatic symptoms, no new or worrisome voiding concerns. No nausea vomiting digestive concerns, abdominal pain diarrhea or constipation. Weight has increased approximately 7 lb since hospital d/c on 09/03. Allergies Allergy/AdvReac Type Severity Reaction Status Date / Time bee venom protein (honey bee) Allergy Severe SHORTNESS Verified 09/05/25 00:36 OF BREATH ondansetron Allergy Intermediate OVER ALL Verified 09/05/25 00:36 SWELLING Home Medications Medication Instructions Recorded Confirmed Type aspirin 81 mg tablet,delayed 81 mg PO QAM 09/11/19 09/11/25 History release (Alejo Low Dose Aspirin) epinephrine 0.3 mg/0.3 mL 0.3 mg subcut DIRECTED PRN 09/11/19 09/11/25 History injection, auto-injector (EpiPen) Anaphylaxis insulin lispro 100 unit/mL 15 unit subcut AC PRN PUMP FAILURE 09/11/19 09/11/25 History subcutaneous pen (Humalog KwikPen (U-100) Insulin) rosuvastatin 20 mg tablet (Crestor) 20 mg PO QAM 09/11/19 09/11/25 History tamsulosin 0.4 mg capsule (Flomax) 0.4 mg PO HS 09/11/19 09/11/25 History mycophenolate sodium 180 mg 360 mg (2 x 180 mg) PO BID #120 04/21/22 09/11/25 Rx tablet,delayed release tabs pregabalin 225 mg capsule 225 mg PO QPM 12/08/23 09/11/25 History Lactobacillus acidophilus 10 10,000 mmu cells PO DAILY 08/28/25 09/11/25 History billion cell capsule (Probiotic) glucagon 1 mg/0.2 mL subcutaneous 1 mg subcut DIRECTED PRN 08/28/25 09/11/25 History auto-injector (Gvoke HypoPen UNRESPONSIVE W/HYPOGLYCEMIA 2-Pack) insulin glargine 100 unit/mL (3 0 unit subcut DIRECTED 08/28/25 09/11/25 History mL) subcutaneous pen (Lantus Solostar U-100 Insulin) insulin lispro 100 unit/mL 1 sliding scale dose continuous 08/28/25 09/11/25 History subcutaneous solution subcutaneous infusion USEASDIRECTD insulin lispro 100 unit/mL 1 sliding scale dose continuous 08/28/25 09/11/25 History subcutaneous solution (Humalog subcutaneous infusion USEASDIRECTD U-100 Insulin) tacrolimus 1 mg capsule, 0.5 mg PO QPM 08/28/25 09/11/25 History immediate-release tacrolimus 1 mg capsule, 1 mg PO QAM 08/28/25 09/11/25 History immediate-release prasugrel HCl 10 mg tablet 10 mg PO QAM 30 days #30 tabs 09/03/25 09/11/25 Rx cyanocobalamin (vitamin B-12) 500 500 mcg PO QAM 30 days #30 tabs 09/05/25 09/11/25 Rx mcg tablet midodrine 2.5 mg tablet 2.5 mg PO TID@0800,1200,1700 30 09/05/25 09/11/25 Rx days #90 tabs Patient History Medical History T2DM (type 2 diabetes mellitus) Failure of outpatient treatment Infected surgical wound Ulcer of right foot due to type 2 diabetes mellitus Fever History of peritoneal dialysis Gastroparesis Diabetes Surgical History Status post right foot surgery Family History Father Colorectal cancer Mother Diabetes Social History Smoking Status: Never smoker Tobacco Type: Smokeless Tobacco (Dip or Chew) Second Hand Exposure: Yes; Do You Dip or Chew Tobacco: Yes; Tobacco Cessation Education Requested by Patient: Yes Hx Alcohol Use: No Hx Substance Use: No Preferred Language: Andorran Communication Ability: Effective Dust Mixer Required: No Beliefs That Will Affect Care: None marital status: Current Living Situation: Spouse Other Information That Helps Us Care for You: No Feels Safe at Home: Yes Safety Concerns: Feels Safe At This Time Assistive Devices: Cane, Denture - Upper, Denture - Lower, Glasses and Hearing Aid - Bilateral Review of Systems 2 Review of Systems: All systems reviewed & are unremarkable except as noted in HPI & below Physical Exam 2 Constitutional: well developed, well nourished and cooperative; no acute distress (but restless) Eyes: EOM intact bilaterally ENMT: Mouth: + dry oral mucous membranes Neck: no nuchal rigidity Respiratory: + labored breathing (very slight), + cou gh (frequent weak cough dry) and able to speak in complete sentences Auscultation: + diminished lung sounds Cardiovascular: Rate/Rhythm: regular rate and regular rhythm Extremities: + edema (2+ BLE) Gastrointestinal (Abdomen): Inspection/Auscultation: + abdomen distended and normal bowel sounds Percussion/Palpation: abdomen soft and + fluid wave; abdomen nontender (including over allograft) Musculoskeletal: Extremities: strength 5/5 throughout Skin: no rashes, warm and dry Neurologic: lemons, fluent speech, no tremor Results & Data Vital Signs (Past 12 Hours) Vital Signs Temp Pulse Pulse Resp BP BP Pulse Ox 09/11/25 13:00 81 18 133/81 09/11/25 11:58 77 18 137/79 95 09/11/25 11:50 81 09/11/25 10:19 94 09/11/25 10:04 36.6 C 83 20 109/72 94 O2 Del Method 09/11/25 13:00 09/11/25 11:58 09/11/25 11:50 09/11/25 10:19 Room Air 09/11/25 10:04 Room Air Laboratory Results 09/11/25 10:30 09/11/25 10:30 Diagnostic Findings TTE changes as above CXR w/ pulm vasc congestion
[2025-09-11] MEDS ORDERED: GLUCOSE 10 TAB/TUBE PO PRN (14:44)
[2025-09-11] MEDS ORDERED: DEXTROSE 50% 50 ML SYRINGE IV PRN (14:44)
[2025-09-11] MEDS ORDERED: CARBOHYDRATES FOR HYPOGLYCEMIA PO PRN (14:44)
[2025-09-11] MEDS ORDERED: GLUCAGON FOR INJ 1 MG VIAL SQ PRN (14:44)
[2025-09-11] MEDS ORDERED: PHARMACY GLYCEMIC MGMT CONSULT PRN (14:44)
[2025-09-11] MEDS ORDERED: ONDANSETRON INJ 2 MG/ML 2 ML VIAL IV PRN (14:44)
[2025-09-11] MEDS ORDERED: GLUCOSE 40% GEL 15 GM TUBE PO PRN (14:44)
[2025-09-11] MEDS ORDERED: ACETAMINOPHEN 325 MG TAB PO PRN (14:44)
--- NOTE | 2025-09-11 14:54 | XCELERA ---
[id number]
[2025-09-11] MEDS ORDERED: PROMETHAZINE 12.5 MG/50.5 ML BAG IV PRN (15:01)
[2025-09-11] MEDS ORDERED: INSULIN ASPART 100 UNITS/ML VIAL SC PRN (15:15)
[2025-09-11] MEDS: MIDODRINE HCL 2.5 MG TAB PO SCH (17:12)
--- NOTE | 2025-09-11 17:38 | Cardiology Consultation ---
Date of Consultation September 11, 2025 Assessment & Plan (1) Acute on chronic HFrEF (heart failure with reduced ejection fraction): * Ejection fraction as measured today in the range of 30- 35% down from 40 to 50% at the time of postmyocardial infarction echocardiogram dated 08/22/2025. * Suspected patient did receive IV fluids to optimize his renal function prior to his staged PCI, and probably received additional fluid resuscitation when he came back for syncopal episode. * He is not on diuretics as an outpatient and has not had issues with recent volume overload until the last week. * Given findings of pericardial effusion as well as history of renal transplant and chronic orthostatic hypotension, will proceed with low-dose furosemide, 20 mg to start. Will coordinate with nephrology, and adjust next dose, anticipate in the range of 10 mg to 20 mg tomorrow in an effort to avoid hypotension especially in the setting of the pericardial effusion as will be discussed below. * Beta-blockers s previously noted are to be avoided given his recent concerns of bradycardia and ongoing conduction system disease. * Avoid ACEI / ARB / Entresto in effort to optimize renal function. * Continue aspirin and prasugrel. Continue rosuvastatin. (2) Pericardial effusion: * Moderate to large circumferential pericardial effusion without tamponade noted on echocardiogram today which is a new finding compared to 08/30/2025. * Inflammatory markers elevated including ESR of 64 mm/h, C-reactive protein of 8.5troponin mildly elevated as well but trending down. compared to previous admissions. * Patient without symptoms to suggest a myocarditis or pericarditis however post [place] Osman's syndrome is certainly a consideration. * Will proceed with low-dose prednisone for anti-inflammatory purposes. Nonsteroidal anti-inflammatory medication and high-dose aspirin contraindicated in this case. * Will consider adding colchicine after discussion with nephrology . (3) Bradycardia: * Avoiding AV hollie blockers. No bradycardia present. He is currently wearing his ZIO monitor as previously prescribed. I spent a total of 60 minutes on the date of service in preparation, delivery, and documentation of the care provided to this patient, excluding any time spent in the performance of separately billed services. Chela Dodd, DO History of Present Illness Reason for Consultation: Shortness of breath, edema, pericardial effusion Requesting Physician: Cha Moreno PA-C Attending Physician: Kerivn S Nulton, DO History of Present Illness Mr Tamez is a 59 year old male Who recently presented on the evening of 08/28/2025 with symptoms of 1 week duration of nauseousness and epigastric discomfort. He was found to have a late presentation for an inferior ST segment elevation myocardial infarction that was complicated by bradycardia with third- degree AV block on presentation at that time. He was taken to the cardiac catheterization laboratory emergently and underwent 3 drug-eluting stents to the mid and distal right coronary artery with temporary transvenous pacemaker placed for heart rate support during the procedure. At the time presentation he was on diltiazem 240 mg daily which was held postprocedure and 36 hours after presentation sinus rhythm with long first-degree AV block and bifascicular block noted and the temporary transvenous pacemaker was discontinued. He returned to the cardiac catheterization laboratory on 09/02/2025 for staged PCI of the obtuse marginal receiving a single drug-eluting stent at that time. He was discharged on 09/03/2025 but returned on 09/04 with a syncopal episode and was noted that his diltiazem which had been held during the previous admission had been resumed upon discharge. Diltiazem was once again discontinued and he was discharged on 09/05/2025 with plan to avoid AV hollie blockers completely and a Zio patch event placed as an outpatient He notes that since that discharge he has had progressive swelling in his hands and lower extremities and shortness of breath especially with trying to lie flat. He denies any chest discomfort specifically pleuritic chest discomfort or exertional chest discomfort. Past Medical History: Patient had been seen in preoperative assessment prior to consideration of renal transplant by Dr. Lockett in 2012 with abnormal stress test at that time and subsequent stents to the right coronary artery and circumflex coronary artery performed at [facility] as well as [facility] (details of each procedure unavailable). 08/28/2025: White presentation inferolateral STEMI, 3 overlapping drug-eluting stents to the mid and distal RCA, complicated by third-degree heart block requiring transcutaneous temporary pacemaker support for 36 hours 09/02/2025: Returned for staged PCI, 1 drug-eluting stent, of the obtuse marginal 2 branch of the circumflex Kidney transplant, [facility], September, He has a longstanding history of orthostatic hypotension Allergies Allergy/AdvReac Type Severity Reaction Status Date / Time bee venom protein (honey bee) Allergy Severe SHORTNESS Verified 09/05/25 00:36 OF BREATH ondansetron Allergy Intermediate OVER ALL Verified 09/05/25 00:36 SWELLING Home Medications Medication Instructions Recorded Confirmed Type aspirin 81 mg tablet,delayed 81 mg PO QAM 09/11/19 09/11/25 History release (Alejo Low Dose Aspirin) epinephrine 0.3 mg/0.3 mL 0.3 mg subcut DIRECTED PRN 09/11/19 09/11/25 History injection, auto-injector (EpiPen) Anaphylaxis insulin lispro 100 unit/mL 15 unit subcut AC PRN PUMP FAILURE 09/11/19 09/11/25 History subcutaneous pen (Humalog KwikPen (U-100) Insulin) rosuvastatin 20 mg tablet (Crestor) 20 mg PO QAM 09/11/19 09/11/25 History tamsulosin 0.4 mg capsule (Flomax) 0.4 mg PO HS 09/11/19 09/11/25 History mycophenolate sodium 180 mg 360 mg (2 x 180 mg) PO BID #120 04/21/22 09/11/25 Rx tablet,delayed release tabs pregabalin 225 mg capsule 225 mg PO QPM 12/08/23 09/11/25 History Lactobacillus acidophilus 10 10,000 mmu cells PO DAILY 08/28/25 09/11/25 History billion cell capsule (Probiotic) glucagon 1 mg/0.2 mL subcutaneous 1 mg subcut DIRECTED PRN 08/28/25 09/11/25 History auto-injector (Gvoke HypoPen UNRESPONSIVE W/HYPOGLYCEMIA 2-Pack) insulin glargine 100 unit/mL (3 0 unit subcut DIRECTED 08/28/25 09/11/25 History mL) subcutaneous pen (Lantus Solostar U-100 Insulin) insulin lispro 100 unit/mL 1 sliding scale dose continuous 08/28/25 09/11/25 History subcutaneous solution subcutaneous infusion USEASDIRECTD insulin lispro 100 unit/mL 1 sliding scale dose continuous 08/28/25 09/11/25 History subcutaneous solution (Humalog subcutaneous infusion USEASDIRECTD U-100 Insulin) tacrolimus 1 mg capsule, 0.5 mg PO QPM 08/28/25 09/11/25 History immediate-release tacrolimus 1 mg capsule, 1 mg PO QAM 08/28/25 09/11/25 History immediate-release prasugrel HCl 10 mg tablet 10 mg PO QAM 30 days #30 tabs 09/03/25 09/11/25 Rx cyanocobalamin (vitamin B-12) 500 500 mcg PO QAM 30 days #30 tabs 09/05/25 09/11/25 Rx mcg tablet midodrine 2.5 mg tablet 2.5 mg PO TID@0800,1200,1700 30 09/05/25 09/11/25 Rx days #90 tabs Patient History Medical History T2DM (type 2 diabetes mellitus) Failure of outpatient treatment Infected surgical wound Ulcer of right foot due to type 2 diabetes mellitus Fever History of peritoneal dialysis Gastroparesis Diabetes Surgical History Status post right foot surgery Family History Father Colorectal cancer Mother Diabetes Social History Smoking Status: Never smoker Tobacco Type: Smokeless Tobacco (Dip or Chew) Second Hand Exposure: Yes; Do You Dip or Chew Tobacco: Yes; Tobacco Cessation Education Requested by Patient: Yes Hx Alcohol Use: No Hx Substance Use: No Preferred Language: Maltese Communication Ability: Effective Small Animal Veterinarian Required: No Beliefs That Will Affect Care: None marital status: Current Living Situation: Spouse Other Information That Helps Us Care for You: No Feels Safe at Home: Yes Safety Concerns: Feels Safe At This Time Assistive Devices: Cane, Denture - Upper, Denture - Lower, Glasses and Hearing Aid - Bilateral Review of Systems Review of Systems: All systems reviewed & are unremarkable except as noted in HPI & below Physical Exam Physical Exam: Temp Pulse Resp BP Pulse Ox O2 Del Method 36.4 C L 84 16 110/72 98 Room Air 09/11/25 15:07 09/11/25 15:50 09/11/25 15:07 09/11/25 15:07 09/11/25 15:07 09/11/25 15:41 General: no acute distress and stated age Eyes: conjunctiva are pink and non-injected, sclera clear Neck: normal jugular venous pulse, no hepatojugular reflux Chest: normal shape and normal respiratory effort Lungs:Decreased breath sounds bilaterally at the base Cardiac Exam: - regular heart sounds, no murmurs, rubs, or gallops Abdomen: abdomen soft, non-tender, no abnormal masses and no hepatosplenomegaly Extremities: 1-2+ bilateral lower extremity Neuro:awake, conversant, follows commands, no focal motor deficits Psych: appropriate affect and insight. Results & Data Vital Signs (Past 12 Hours) Vital Signs Temp Pulse Pulse Resp BP BP Pulse Ox 09/11/25 15:50 84 09/11/25 15:41 09/11/25 15:07 36.4 C L 88 16 110/72 98 09/11/25 13:00 81 18 133/81 09/11/25 11:58 77 18 137/79 95 09/11/25 11:50 81 09/11/25 10:19 94 09/11/25 10:04 36.6 C 83 20 109/72 94 O2 Del Method 09/11/25 15:50 09/11/25 15:41 Room Air 09/11/25 15:07 Room Air 09/11/25 13:00 09/11/25 11:58 09/11/25 11:50 09/11/25 10:19 Room Air 09/11/25 10:04 Room Air Laboratory Results Cardiac Enzymes 09/11/25 09/11/25 Range/Units 10:30 14:54 AST 10 L (13-39) U/L Troponin I High Sens 633.8 H* 542.2 H* (0-20) pg/ml B-Natriuretic Peptide 901 H (0-100) pg/ml Coagulation 09/11/25 Range/Units 10:30 PT 14.1 H (9.0-12.0) Seconds APTT 38 H (21-31) Seconds B-Natriuretic Peptide 901 H (0-100) pg/ml CBC 09/11/25 Range/Units 10:30 WBC 11.20 H (4.8-10.8) K/ul RBC 3.71 L (4.70-6.10) M/uL Hgb 10.8 L (14.0-18.0) g/dL Hct 33.5 L (42.0-52.0) % Plt Count 421 H (130-400) K/uL Neut # (Auto) 8.68 H (1.40-6.50) K/uL Lymph # (Auto) 1.34 (1.20-3.40) K/uL [place] # (Auto) 1.06 H (0.11-0.59) K/uL Eos # (Auto) 0.05 (0.00-0.50) K/uL Baso # (Auto) 0.02 (0.00-0.20) K/uL Comprehensive Metabolic Panel 09/11/25 Range/Units 10:30 Sodium 136 (136-145) mmol/L Potassium 4.3 (3.5-5.1) mmol/L Chloride 103 (98-107) mmol/L Carbon Dioxide 26 (21-32) mmol/L BUN 11 (6-23) mg/dl Creatinine 1.13 (0.6-1.4) mg/dl Glucose 200 H (70-99(Fasting)) mg/dl Calcium 9.0 (8.6-10.3) mg/dl AST 10 L (13-39) U/L ALT 15 (7-52) U/L Alkaline Phosphatase 92 (34-104) U/L Total Protein 6.3 (6.0-8.3) gm/dl Albumin 3.1 L (3.4-5.0) gm/dl Intake and Output 09/11/25 09/11/25 09/11/25 06:59 14:59 22:59 Other: Weight 123.5 kg 121.8 kg Weight Measurement Method Chair Scale Built in [facility] Patient Weight 09/12/25 06:59 Weight 121.8 kg Diagnostic Findings EKG performed on arrival 09/11/2025, 10:47 AM, reviewed/interpreted inde pendently: Normal sinus rhythm at 79 bpm, low voltage, age-indeterminate inferior infarct pattern with Q waves noted in the inferior leads and lateral precordial leads. Stable findings. Summary of transthoracic echocardiogram performed 09/11/2025: Sinus rhythm in the 70s present during the study. There is a large sized apical, inferior, posterior, and lateral wall motion abnormality with hypokinesis of the segments. Left ventricular systolic function is moderate to severely reduced. Left Ventricular Ejection Fraction = 30-35%. Grade I diastolic dysfunction, (abnormal relaxation pattern). There is a moderate to large circumferential pericardial effusion. There are no echocardiographic indications of cardiac tamponade. There is a small left pleural effusion. Compared to the prior study dated 08/30/25, there has been an interval decline in the LVEF from 45-50% and there has been an interval development of a moderate to large sized pericardial effusion. PG Care Time/CCT Total # of Minutes Spent Total Time Spent with Patient: Total time spent is greater than 50% in coordination of care (as documented) at patient's floor/unit and/or counseling patient: Coding Level of Care Code 16264 IN/OBS CONSULT LVL 4,60M Diagnoses Acute on chronic HFrEF (heart failure with reduced ejection fraction) I50.23 Pericardial effusion I31.39 Bradycardia R00.1
[2025-09-11] MEDS: Continuous Glucose Monitor SCH (18:18)
[2025-09-11] MEDS: FUROSEMIDE INJ 20 MG/2 ML VIAL IV ONE (18:19)
[2025-09-11] MEDS: INSULIN, Rapid-Acting PUMP SCH (18:19)
[2025-09-11 19:27] LABS: Appearance Urine Clear (Clear); Glucose Urine UA Negative (Negative)
[2025-09-11] MEDS: PREGABALIN 75 MG CAP PO SCH (20:29)
[2025-09-11] MEDS: predniSONE 20 MG TAB PO SCH (20:29)
[2025-09-11] MEDS: TACROLIMUS 0.5 MG CAP PO SCH (20:41)
[2025-09-11] MEDS: TAMSULOSIN HCL 0.4 MG CAP PO SCH (20:41)
[2025-09-11] MEDS: MYCOPHENOLATE SODIUM 180 MG TAB PO SCH (20:41)
[2025-09-12 04:33] LABS: A calco-baum cmplx NotReported Not Detected (NotDetected); Bact fragilis Not Reported Not Detected (NotDetected); Blood Culture Id Panel See PCR Comment (NotDetected); C auris Not Reported Not Detected (NotDetected); Calbicans Not Reported Not Detected (NotDetected); Candida glabrata Not Reported Not Detected (NotDetected); Candida krusei Not Reported Not Detected (NotDetected); Cneoformans/gatti Not Reported Not Detected (NotDetected); Cparapsilosis Not Reported Not Detected (NotDetected); Ctropicalis Not Reported Not Detected (NotDetected); E cloacae compx Not Reported Not Detected (NotDetected); Efaecalis Not Reported Not Detected (NotDetected); Efaecium Not Reported Not Detected (NotDetected); Enterobacterales Not Reported Not Detected (NotDetected); Escherichia coli Not Reported Not Detected (NotDetected); H influenzae Not Reported Not Detected (NotDetected); K aerogenes Not Reported Not Detected (NotDetected); Koxytoca Not Reported Not Detected (NotDetected); Kpneumoniae grp Not Reported Not Detected (NotDetected); Lmonocyt Not Reported Not Detected (NotDetected); N meningitidis Not Reported Not Detected (NotDetected); P aeruginosa Not Reported Not Detected (NotDetected); Proteus spp Not Reported Not Detected (NotDetected); Salmonella spp Not Reported Not Detected (NotDetected); Staph lugdunensis Not Reported Not Detected (NotDetected); Staph spp. Not Reported DETECTED (NotDetected); Staphaureus Not Reported Not Detected (NotDetected); Staphepi Not Reported DETECTED (NotDetected); Staphylococcus spp. DETECTED (NotDetected); Stenmaltophilia Not Reported Not Detected (NotDetected); Strep agal(GrpB) Not Reported Not Detected (NotDetected); Strep pneum Not Reported Not Detected (NotDetected); Strep pyog (GrpA) Not Reported Not Detected (NotDetected); Strep spp Not Reported Not Detected (NotDetected); mecAC Resistant Gene Not Detected (NotDetected)
[2025-09-12 04:59] LABS: Staphylococcus epidermidis DETECTED (NotDetected)
--- NOTE | 2025-09-12 05:01 | Communication Note ---
Date of Service: September 12, 2025 Made aware by RN of abnormal blood CS results. Blood culture x2 positive for gram + cocci in clusters, staph epidermis on PCR. AP Gram-positive bacteremia Staph epidermidis on PCR IV cefazolin ID consult
[2025-09-12 06:27] LABS: Hematocrit (blood only) 33.6 % (42.0-52.0); Hemoglobin 10.6 g/dL (14.0-18.0); Immature Granulocytes # (auto) 0.09 K/uL (0.01-0.20); Immature Granulocytes % (auto) 0.6 %; Mean Corpuscular Hemoglobin 28.9 pg (25.0-34.0); Mean Corpuscular Volume 91.6 fL (80.0-100.0); Platelet Count 431 K/uL (130-400); RDW Standard Deviation 46.4 fL (36.4-46.3); Red Blood Count 3.67 M/uL (4.70-6.10); White Blood Count 14.11 K/ul (4.8-10.8)
[2025-09-12 07:06] LABS: Alanine Aminotransferase 15.0 U/L (7-52); Albumin Globulin Ratio 1.0 (0.9-2); Albumin Level 3.2 gm/dl (3.4-5.0); Alkaline Phosphatase 107.0 U/L (34-104); Anion Gap 8.0 (3-11); Bilirubin,Total 0.7 mg/dl (0.2-1.0); Blood Urea Nitrogen 17.0 mg/dl (6-23); Calcium 9.0 mg/dl (8.6-10.3); Carbon Dioxide 27.0 mmol/L (21-32); Chloride 102.0 mmol/L (98-107); Creatinine Clr Calc Pharmacy 91.2 ml/min; Globulin 3.2 gm/dl (2.5-4.0); Glucose 157.0 mg/dl (70-99(Fasting)); Magnesium 1.9 mg/dl (1.7-2.4); Potassium 4.7 mmol/L (3.5-5.1); Sodium 137.0 mmol/L (136-145); Total Protein 6.4 gm/dl (6.0-8.3)
[2025-09-12] MEDS: PRASugrel TAB 10 MG TAB PO SCH (09:05)
[2025-09-12] MEDS: ASPIRIN 81 MG ECTAB PO SCH (09:05)
[2025-09-12] MEDS: CYANOCOBALAMIN (B-12) 500 MCG TABLET PO SCH (09:05)
[2025-09-12] MEDS: ROSUVASTATIN CALCIUM 20 MG TAB PO SCH (09:05)
[2025-09-12] MEDS: TACROLIMUS 1 MG CAP PO SCH (09:06)
[2025-09-12] MEDS: ADVANCED PROBIOTIC 625 MG CAPSULE PO SCH (09:38)
[2025-09-12] MEDS ORDERED: VANCOMYCIN CONSULT ACTIVE PRN (11:05)
--- NOTE | 2025-09-12 11:07 | Hospitalist Progress Note ---
Date of Service September 12, 2025 Assessment & Plan (1) Acute on chronic HFrEF (heart failure with reduced ejection fraction): (2) Anasarca: (3) CAD (coronary artery disease): (4) T2DM (type 2 diabetes mellitus): Plan This is a 59-year-old male who has significant past medical history of end- stage renal disease status post kidney transplantation in September 2018 previously maintained on belatacept and mycophenolate. This was interrupted due to insurance coverage and currently on mycophenolate and Prograf. He also has significant history of CAD For which he presented to ED on 08/28 with STEMI. He had an acute distal RCA occlusion in setting of known multivessel coronary artery disease. He underwent successful PCI of RCA with 3 DARCI. He was initially bradycardic requiring temporary pacing for about 24 hours. He was not a candidate for beta-blockade due to bradycardia. Ejection fraction at that time was 45%. Nephrology was consulted during stay due to history of CKD and kidney transplant status. His renal function remained stable throughout hospital stay. He did require additional left heart cath due to obstruction of OM 2 in which he underwent DARCI x 1 to OM 2. He was discharged home on 09/03. He represents back today with significant edema and anasarca, weight gain and sob. #Acute on Chronic HFrEF #Anasarca -Not on diuretics at home -EF 45% last admission, TTE 09/11 EF down to 35% with large pericardial effusion -BNP elevated, CXR showing pulm edema -S/p IV lasix yesterday with good response Plan -Appreciate cardio and nephro input regarding further diuresis -Monitor renal function, IOs, daily weight closely -GDMT -May need lifevest with EF 35%, defer to cardio #Pericardial effusion -Incidentally found on repeat TTE 09/11 -He denied any symptoms of myocarditis or pericarditis -Etiology unclear. Post [place] carditis ? Plan -Cardio started prednisone 20mg daily yesterday. It has since been discontinued, appreciate input #Positive blood cultures -3/4 blood cultures from 09/11 growing GPCs in clusters. Biofire positive for staph epi -Typically CoNS if a contaminant however 3/4 bottles is concerning for true bacteremia -There is no clear source of infection. Skin examination unrevealing -However his severe peripheral neuropathy puts him at high risk of having an unknown soft tissue cut/infection in the recent past -There were no identifiable vegetations on TTE Plan -Started on ancef this AM but will escalate to IV vanc until cultures finalize -D/w nephrology, ok to start vanc -Appreciate ID input -Repeat blood cultures from this AM pending #CAD #Recent STEMI s/p DARCI x 3 to RCA and x 1 to OM2 #Hx PAF continue med management with asa, prasugrel, crestor BB contraindicated due to bradycardia (pt required temp pacing post cath) #IDDM insulin pump at home a1c 9.0 consult glycemic pharmacy #Chronic hyponatremia sodium stable, monitor bmp #DVT ppx: SCDS for now in event pt needs pericardial procedure, await nephro/cards consults Dispo: admit to PCU with findings of pericardial effusion FULL CODE PCP: Anna Pt was seen and examined in collaboration with Dr. Levy, please see addendum I spent a total of 63 minutes coordinating, documenting and providing care for this patient excluding time spent in the performance of separately billed services or time spent by another provider/QHP. Admission and Anticipated Discharge Date Admission Date: September 11, 2025 Subjective Feeling well today. Less SOB, less leg swelling. He denies any new skin lesions. No fevers in the past two weeks. d/w at bedside. D/w nephrology Physical Exam Physical Exam: Vitals and labs reviewed General: Well appearing, NAD HEENT: EOMI, PERRLA Neck: Supple Cardiac: RRR Lungs: bibasilar rales otherwise clear. NAD Abd: S NT ND BS positive : Deffered MSK: Full ROM. No obvious deformities Ext: 2+ b/l LE Edema Skin: Warm, Dry Neuro: AOx3 No focal deficits. Psych: Normal Mood Results & Data Results & Data Vital Signs (Past 12 Hours) Vital Signs Temp Pulse Resp BP Pulse Ox O2 Del Method 09/12/25 08:00 Room Air 09/12/25 07:36 36.8 C 76 114/79 95 Room Air 09/12/25 03:13 36.8 C 84 16 112/67 91 Room Air 09/11/25 23:04 37.0 C 84 16 110/69 93 Room Air Laboratory Results Abnormal lab results 09/11/25 09/11/25 09/11/25 Range/Units 10:30 10:50 14:54 WBC 11.20 H (4.8-10.8) K/ul RBC 3.71 L (4.70-6.10) M/uL Hgb 10.8 L (14.0-18.0) g/dL Hct 33.5 L (42.0-52.0) % MCHC (32.0-36.0) g/dL RDW Std Deviation (36.4-46.3) fL Plt Count 421 H (130-400) K/uL MPV 9.3 L (9.4-12.4) fL Neut # (Auto) 8.68 H (1.40-6.50) K/uL Lymph # (Auto) (1.20-3.40) K/uL [place] # (Auto) 1.06 H (0.11-0.59) K/uL ESR 64 H (0-20) mm/hr PT 14.1 H (9.0-12.0) Seconds INR 1.4 H (0.9-1.1) APTT 38 H (21-31) Seconds BUN/Creatinine Ratio 9.7 L (10-20) Glucose 200 H (70-99(Fasting)) mg/dl POC Glucose (70-99) mg/dl AST 10 L (13-39) U/L Alkaline Phosphatase (34-104) U/L Troponin I High Sens 633.8 H* 542.2 H* (0-20) pg/ml C-Reactive Protein 8.51 H (0-0.5) mg/dl B-Natriuretic Peptide 901 H (0-100) pg/ml Albumin 3.1 L (3.4-5.0) gm/dl Lipase 7 L (11-82) U/L Staphylococcus sp PCR DETECTED A (NotDetected) Staph epidermidis (PCR) DETECTED A (NotDetected) 09/11/25 09/11/25 09/12/25 Range/Units 17:02 20:03 05:34 WBC 14.11 H (4.8-10.8) K/ul RBC 3.67 L (4.70-6.10) M/uL Hgb 10.6 L (14.0-18.0) g/dL Hct 33.6 L (42.0-52.0) % MCHC 31.5 L (32.0-36.0) g/dL RDW Std Deviation 46.4 H (36.4-46.3) fL Plt Count 431 H (130-400) K/uL MPV (9.4-12.4) fL Neut # (Auto) 12.17 H (1.40-6.50) K/uL Lymph # (Auto) 0.87 L (1.20-3.40) K/uL [place] # (Auto) 0.93 H (0.11-0.59) K/uL ESR (0-20) mm/hr PT (9.0-12.0) Seconds INR (0.9-1.1) APTT (21-31) Seconds BUN/Creatinine Ratio (10-20) Glucose 157 H (70-99(Fasting)) mg/dl POC Glucose 129 H 146 H (70-99) mg/dl AST (13-39) U/L Alkaline Phosphatase 107 H (34-104) U/L Troponin I High Sens (0-20) pg/ml C-Reactive Protein (0-0.5) mg/dl B-Natriuretic Peptide (0-100) pg/ml Albumin 3.2 L (3.4-5.0) gm/dl Lipase (11-82) U/L Staphylococcus sp PCR (NotDetected) Staph epidermidis (PCR) (NotDetected) 09/12/25 Range/Units 07:29 WBC (4.8-10.8) K/ul RBC (4.70-6.10) M/uL Hgb (14.0-18.0) g/dL Hct (42.0-52.0) % MCHC (32.0-36.0) g/dL RDW Std Deviation (36.4-46.3) fL Plt Count (130-400) K/uL MPV (9.4-12.4) fL Neut # (Auto) (1.40-6.50) K/uL Lymph # (Auto) (1.20-3.40) K/uL [place] # (Auto) (0.11-0.59) K/uL ESR (0-20) mm/hr PT (9.0-12.0) Seconds INR (0.9-1.1) APTT (21-31) Seconds BUN/Creatinine Ratio (10-20) Glucose (70-99(Fasting)) mg/dl POC Glucose 143 H (70-99) mg/dl AST (13-39) U/L Alkaline Phosphatase (34-104) U/L Troponin I High Sens (0-20) pg/ml C-Reactive Protein (0-0.5) mg/dl B-Natriuretic Peptide (0-100) pg/ml Albumin (3.4-5.0) gm/dl Lipase (11-82) U/L Staphylococcus sp PCR (NotDetected) Staph epidermidis (PCR) (NotDetected)
[2025-09-12] MEDS: VANCOMYCIN HCL 2,500 MG in SODIUM CHLORIDE 0.9% 500 ML IV ONE (11:36)
[2025-09-12] MEDS ORDERED: INSULIN ASPART 100 UNITS/ML VIAL SC PRN (12:19)
--- NOTE | 2025-09-12 12:28 | Nephrology Progress Note ---
Date of Service September 12, 2025 Assessment & Plan (1) Pericardial effusion: Plan: etiology unclear and defer to cardiology expertise >> possible Osman syndrome; another less likely concern is certainly infectious in this transplant patient or other autoimmune process; CRP 8.5 agree w/ prednisone [address] Dodd (2) Acute on chronic HFrEF (heart failure with reduced ejection fraction): Plan: he is on RA currently and BP are maintained but increasingly symptomatic agree with heart healthy diet and 1.5 L FR he had one dose of IV lasix 20 mg today. Okay to continue low-dose Lasix. (3) Hx of kidney transplant: Plan: baseline creatinine 1.1; at/near baseline -daily BMP >continue FK current OP dose (4) Gram-positive bacteremia: Plan: Patient with Gram-positive bacteremia likely Staph aureus. Okay to use vancomycin until sensitivities. Admission and Anticipated Discharge Date Admission Date: September 11, 2025 Subjective seen for kidney transplant complicated by pericardial effusion and acute CHF. He feels better today. Legs are slightly swollen. No shortness of breath. Review of Systems 2 Review of Systems: All other systems were reviewed and negative except as noted in HPI Physical Exam 2 Physical Exam: General exam: Appears comfortable, no acute distress HEENT: Pupils are equal and reactive to light Neck: No JVD, neck is supple trachea is midline Respiratory system: Clear breath sounds bilaterally. Gastrointestinal: Abdomen is soft, non distended, non tender, bowel sounds are present CVS: Regular rate and rhythm. No murmurs, rubs or gallops Musculoskeletal: No joint or muscle tenderness Extremities: Non tender, 1+ edema, peripheral pulses are present Neuro: Oriented, no tremors, no focal neurological deficits Skin: No rashes Results & Data Vital Signs (Past 12 Hours) Vital Signs Temp Pulse Resp BP Pulse Ox O2 Del Method 09/12/25 11:19 36.6 C 86 119/81 95 Room Air 09/12/25 08:00 Room Air 09/12/25 07:36 36.8 C 76 114/79 95 Room Air 09/12/25 03:13 36.8 C 84 16 112/67 91 Room Air Laboratory Results 09/12/25 05:34 09/12/25 05:34 WBC 14.11 H RBC 3.67 L MCV 91.6 MCH 28.9 MCHC 31.5 L RDW Std Deviation 46.4 H RDW Coeff of Dandre 13.6 Plt Count 431 H MPV 9.5 Phosphorus 3.6 Albumin 3.2 L
[2025-09-12] MEDS: INSULIN, Rapid-Acting PUMP SC SCH (13:40)
--- NOTE | 2025-09-12 15:55 | Cardiology Progress Note ---
Date of Service September 12, 2025 Assessment & Plan (1) Acute on chronic HFrEF (heart failure with reduced ejection fraction): Plan: * Ejection fraction as measured today in the range of 30-35% down from 40-50% at the time of postmyocardial infarction echocardiogram dated 08/22/2025. * Suspected patient did receive IV fluids to optimize his renal function prior to his staged PCI, and probably received additional fluid resuscitation when he came back for syncopal episode. * He is not on diuretics as an outpatient and has not had issues with recent volume overload until the last week. * Given findings of pericardial effusion as well as history of renal transplant and chronic orthostatic hypotension, continue low dose furosemide , 20 mg x 1 on 09/12/25 * Beta-blockers s previously noted are to be avoided given his recent concerns of bradycardia and ongoing conduction system disease. * Avoid ACEI / ARB / Entresto in effort to optimize renal function. * Continue aspirin and prasugrel. Continue rosuvastatin. (2) Pericardial effusion: Plan: * Moderate to large circumferential pericardial effusion without tamponade noted on echocardiogram today which is a new finding compared to 08/30/2025. * Inflammatory markers elevated including ESR of 64 mm/h, C-reactive protein of 8.5troponin mildly elevated as well but trending down. compared to previous admissions. * Patient without symptoms to suggest a myocarditis or pericarditis however post CT Osman's syndrome is certainly a consideration. * Will proceed with low-dose prednisone for anti-inflammatory purposes. Nonsteroidal anti-inflammatory medication and high-dose aspirin contraindicated in this case. * Discussed addition of colchicine with nephrology, given risk of worsening renal function will avoid at present. (3) Bradycardia: Plan: * Avoiding AV hollie blockers. No bradycardia present. He is currently wearing his ZIO monitor as previously prescribed. (4) Bacteremia: Plan: * 2/2 Blood cultures positive for gram-positive cocci, PCR consistent with staph epidermidis with similar findings in 2021 in 2022 * Patient immunocompromise denies any other past kidney * Patient without liat infectious symptoms at present * Did have transaminitis temporary pacemaker via the right femoral vein approach last month that remained in place for approximately 36 hours. * Has an indwelling port * Has history of left foot wound/dry gangrene and 2023, Right calcaneus osteomyelitis 2021 J. Ju, DO Admission and Anticipated Discharge Date Admission Date: September 11, 2025 Subjective Patient seen in follow up today. He denies Fevers chills or chest discomfort. He states his orthopnea and edema has improved having had 1 dose of furosemide 20 mg IV yesterday. Physical Exam Physical Exam: Temp Pulse Resp BP Pulse Ox O2 Del Method 37 C 84 17 127/76 95 Room Air 09/12/25 15:39 09/12/25 15:39 09/12/25 15:39 09/12/25 15:39 09/12/25 15:39 09/12/25 15:39 General: no acute distress and stated age Eyes: conjunctiva are pink and non-injected, sclera clear Neck: normal jugular venous pulse, no hepatojugular reflux Chest: normal shape and normal respiratory effort Lungs:Decreased breath sounds bilaterally at the base Cardiac Exam: - regular heart sounds, no murmurs, rubs, or gallops Abdomen: abdomen soft, non-tender, no abnormal masses and no hepatosplenomegaly Extremities: 1+ bilateral lower extremity Neuro:awake, conversant, follows commands, no focal motor deficits Psych: appropriate affect and insight. Coding Level of Care Code 27520 SUB INP/OBS CARE 3/50MIN Diagnoses Acute on chronic HFrEF (heart failure with reduced ejection fraction) I50.23 Pericardial effusion I31.39 Bradycardia R00.1 Bacteremia R78.81
[2025-09-12] MEDS: FUROSEMIDE INJ 20 MG/2 ML VIAL IV ONE (16:34)
[2025-09-12] MEDS: HEPARIN 100 UNIT/ML 5ML FLUSH FLUSH PRN (16:35)
--- NOTE | 2025-09-12 16:46 | Electrocardiogram Report ---
Test Reason : Blood Pressure : */* mmHG Vent. Rate : 79 BPM Atrial Rate : 79 BPM P-R Int : 172 ms QRS Dur : 110 ms QT Int : 398 ms P-R-T Axes : 43 -68 -34 degrees QTcB Int : 456 ms Normal sinus rhythm Left axis deviation Low voltage QRS Inferior infarct (cited on or before 30-Aug-2025) Anterolateral infarct (cited on or before 01-Sep-2025) Abnormal ECG When compared with ECG of 04-Sep-2025 23:06, Serial changes of Inferior infarct Present Serial changes of Anterolateral infarct Present Confirmed by Chandra Cerda ([id number]) on 09/12/2025 4:45:54 PM Referred By: Confirmed By: Chandra Cerda
[2025-09-12] MEDS ORDERED: VANCOMYCIN HCL / NSS 1,000 MG/270 ML BAG IV ONE (17:00)
[2025-09-12] MEDS: Continuous Glucose Monitor SCH (17:27)
[2025-09-13 06:21] LABS: Hematocrit (blood only) 31.9 % (42.0-52.0); Hemoglobin 10.3 g/dL (14.0-18.0); Mean Corpuscular Hemoglobin 29.3 pg (25.0-34.0); Mean Corpuscular Volume 90.9 fL (80.0-100.0); Platelet Count 423 K/uL (130-400); RDW Standard Deviation 45.1 fL (36.4-46.3); Red Blood Count 3.51 M/uL (4.70-6.10); White Blood Count 12.22 K/ul (4.8-10.8)
[2025-09-13 06:44] LABS: Anion Gap 8.0 (3-11); Blood Urea Nitrogen 26.0 mg/dl (6-23); Calcium 8.9 mg/dl (8.6-10.3); Carbon Dioxide 28.0 mmol/L (21-32); Chloride 102.0 mmol/L (98-107); Creatinine Clr Calc Pharmacy 82.3 ml/min; Glucose 128.0 mg/dl (70-99(Fasting)); Potassium 4.3 mmol/L (3.5-5.1); Sodium 138.0 mmol/L (136-145)
[2025-09-13] MEDS: predniSONE 20 MG TAB PO SCH (08:13)
[2025-09-13] MEDS ORDERED: Continuous Glucose Monitor SCH (09:00)
--- NOTE | 2025-09-13 09:16 | XCELERA ---
[id number] \\[id number]
--- NOTE | 2025-09-13 09:34 | Nephrology Progress Note ---
Date of Service September 13, 2025 Assessment & Plan (1) Pericardial effusion: Plan: etiology unclear differentials include: Osman syndrome; another less likely concern is certainly infectious in this transplant patient or other autoimmune process; CRP 8.5 Continue prednisone [address] Dodd Cardiology might do pericardiocentesis (2) Acute on chronic HFrEF (heart failure with reduced ejection fraction): Plan: he is on RA currently and BP are maintained but increasingly symptomatic agree with heart healthy diet and 1.5 L FR He appears euvolemic today. No need for lasix in setting of hypotension (3) Hx of kidney transplant: Plan: baseline creatinine 1.1; cr today 1.3 -daily BMP >continue FK current OP dose (4) Gram-positive bacteremia: Plan: Patient with Gram-positive bacteremia likely Staph aureus. Okay to use vancomycin until sensitivities. Remove port to give patient a line holiday. Plan Discussed with Dr. Levy via tiger text who agrees with antibiotics, discussing with ID re port removal. Admission and Anticipated Discharge Date Admission Date: September 11, 2025 Subjective Seen for renal transplant now with bacteremia and cardiac tamponade. BP is low today. no sob. legs swollen. Review of Systems 2 Review of Systems: All other systems were reviewed and negative except as noted in HPI Physical Exam 2 Physical Exam: General exam: Appears comfortable, no acute distress HEENT: Pupils are equal and reactive to light Neck: No JVD, neck is supple trachea is midline Respiratory system: Clear breath sounds bilaterally. Gastrointestinal: Abdomen is soft, non distended, non tender, bowel sounds are present CVS: Regular rate and rhythm. No murmurs, rubs or gallops Musculoskeletal: No joint or muscle tenderness Extremities: Non tender, 1+ edema, peripheral pulses are present Neuro: Oriented, no tremors, no focal neurological deficits Skin: No rashes Results & Data Vital Signs (Past 12 Hours) Vital Signs Temp Pulse Pulse Resp BP Pulse Ox O2 Del Method 09/13/25 07:55 78 09/13/25 07:19 36.8 C 80 17 98/66 L 94 Room Air 09/13/25 02:26 36.8 C 86 18 114/70 95 Room Air 09/12/25 22:53 37.2 C 90 18 109/60 95 Room Air 09/12/25 21:37 85 Laboratory Results 09/13/25 05:33 09/13/25 05:33 WBC 12.22 H RBC 3.51 L MCV 90.9 MCH 29.3 MCHC 32.3 RDW Std Deviation 45.1 RDW Coeff of Dandre 13.6 Plt Count 423 H MPV 9.8
--- NOTE | 2025-09-13 10:16 | Hospitalist Progress Note ---
Date of Service September 13, 2025 Assessment & Plan (1) Acute on chronic HFrEF (heart failure with reduced ejection fraction): (2) Anasarca: (3) CAD (coronary artery disease): (4) T2DM (type 2 diabetes mellitus): Plan This is a 59-year-old male who has significant past medical history of end- stage renal disease status post kidney transplantation in September 2018 previously maintained on belatacept and mycophenolate. This was interrupted due to insurance coverage and currently on mycophenolate and Prograf. He also has significant history of CAD For which he presented to ED on 08/28 with STEMI. He had an acute distal RCA occlusion in setting of known multivessel coronary artery disease. He underwent successful PCI of RCA with 3 DARCI. He was initially bradycardic requiring temporary pacing for about 24 hours. He was not a candidate for beta-blockade due to bradycardia. Ejection fraction at that time was 45%. Nephrology was consulted during stay due to history of CKD and kidney transplant status. His renal function remained stable throughout hospital stay. He did require additional left heart cath due to obstruction of OM 2 in which he underwent DARCI x 1 to OM 2. He was discharged home on 09/03. He represents back today with significant edema and anasarca, weight gain and sob. #Acute on Chronic HFrEF #Anasarca -Not on diuretics at home -EF 45% last admission, TTE 09/11 EF down to 35% with large pericardial effusion -BNP elevated, CXR showing pulm edema -S/p IV lasix yesterday with good response Plan -Appreciate cardio and nephro input regarding further diuresis -Monitor renal function, IOs, daily weight closely -GDMT -May need lifevest with EF 35%, defer to cardio #Pericardial effusion -Incidentally found on repeat TTE 09/11 -He denied any symptoms of myocarditis or pericarditis -Etiology unclear. Post [place] carditis ? Plan -Cardio started prednisone 20mg daily, continue -Currently NPO for possible pericardiocentesis #Positive blood cultures -3/4 blood cultures from 09/11 growing GPCs in clusters. Biofire positive for staph epi -Typically CoNS if a contaminant however 3/4 bottles is concerning for true bacteremia -There is no clear source of infection. Skin examination unrevealing -However his severe peripheral neuropathy puts him at high risk of having an unknown soft tissue cut/infection in the recent past -There were no identifiable vegetations on TTE -At this point, source is likely his R chemoport, which he has had in place for 7 years. he is not actively getting any infusion -mecA/C gene negative Plan -Continue ancef -General surgery consulted for port removal -Appreciate ID input -Repeat blood cultures NGTD, follow #CAD #Recent STEMI s/p DARCI x 3 to RCA and x 1 to OM2 #Hx PAF continue med management with asa, prasugrel, crestor BB contraindicated due to bradycardia (pt required temp pacing post cath) #IDDM insulin pump at home a1c 9.0 consult glycemic pharmacy #Chronic hyponatremia sodium stable, monitor bmp #DVT ppx: SCDS for now in event pt needs pericardial procedure, await nephro/cards consults Dispo: admit to PCU with findings of pericardial effusion FULL CODE PCP: Anna Pt was seen and examined in collaboration with Dr. Levy, please see addendum I spent a total of 53 minutes coordinating, documenting and providing care for this patient excluding time spent in the performance of separately billed services or time spent by another provider/QHP. Admission and Anticipated Discharge Date Admission Date: September 11, 2025 Subjective Feeling better. less SOB, less leg swelling. back to baseline weight. He is frustrated about being NPO. He is agreeable to having his port removed Physical Exam Physical Exam: Vitals and labs reviewed General: Well appearing, NAD HEENT: EOMI, PERRLA Neck: Supple Cardiac: RRR Lungs: bibasilar rales otherwise clear. NAD Abd: S NT ND BS positive : Deffered MSK: Full ROM. No obvious deformities Ext: 2+ b/l LE Edema Skin: Warm, Dry Neuro: AOx3 No focal deficits. Psych: Normal Mood Results & Data Results & Data Vital Signs (Past 12 Hours) Vital Signs Temp Pulse Pulse Resp BP Pulse Ox O2 Del Method 09/13/25 07:55 78 09/13/25 07:19 36.8 C 80 17 98/66 L 94 Room Air 09/13/25 02:26 36.8 C 86 18 114/70 95 Room Air 09/12/25 22:53 37.2 C 90 18 109/60 95 Room Air Laboratory Results Abnormal lab results 09/13/25 09/13/25 Range/Units 05:33 08:31 WBC 12.22 H (4.8-10.8) K/ul RBC 3.51 L (4.70-6.10) M/uL Hgb 10.3 L (14.0-18.0) g/dL Hct 31.9 L (42.0-52.0) % Plt Count 423 H (130-400) K/uL BUN 26 H (6-23) mg/dl Glucose 128 H (70-99(Fasting)) mg/dl POC Glucose 154 H (70-99) mg/dl
--- NOTE | 2025-09-13 10:35 | Infectious Disease Consult ---
"Date of Service September 13, 2025 Telehealth Information I performed this visit using a real-time telehealth connection between my location and the patients location ([facility]). After connecting through interactive tele-video, patient was identified by name and date of and/or wristband check.Patient (or authorized healthcare printing sales representative) was informed that this was a telemedicine visit and it was being conducted confidentially over secure lines. My office door was closed and no one else was present in the room with me.Patient (or authorized healthcare printing sales representative) provided consent to proceed with the visit, expressed an understanding of privacy and security of the telemedicine visit, and gave permission to have a hospital printing sales representative in the room in order to assist with the visit and to conduct portions of the visit, as needed. I informed the patient (or authorized healthcare printing sales representative) that I reviewed their record and presented the opportunity for them to ask any questions regarding the visit today. The patient agreed to participate. Assessment & Plan (1) Bacteremia: Plan Assessment: 59-year-old male with PMHx of ESRD s/p kidney transplantation in September 2018 previously maintained on belatacept and mycophenolate, interrupted due to insurance coverage and currently on mycophenolate and Prograf, CAD who presented to [facility] on 09/11/2025 with significant edema and anasarca, weight gain and sob. Pt has a Mediport in place for belatacept IV infusion. Port was placed about 8/9 years ago. At [facility], infectious work-up showed (+) Staph Epi in 4/4 bottles. TTE showed larg e pericardial effusion, no notable vegetations. Pt was on Vanco IV and now on Cefazolin IV. Plan to remove mediport soon as this is the assumes source. Plan: - Agree with Cefazolin IV for now. - Recommend Mediport removal donna possible. - Anticipate the need for 2 weeks of IV antibiotics s/p mediport removal. Okay to place new line 72 hours after mediport has been removed as long as blood cultures remain negative. - we will not actively monitor this patient, for additional recommendations please contact the physician business administration teacher for teledoc services. History of Present Illness History of Present Illness Reason for consult: gp bacteremia 59-year-old male with PMHx of ESRD s/p kidney transplantation in September 2018 previously maintained on belatacept and mycophenolate, interrupted due to insurance coverage and currently on mycophenolate and Prograf, CAD who presented to [facility] on 09/11/2025 with significant edema and anasarca, weight gain and sob. Pt has a Mediport in place for belatacept IV infusion. Port was placed about 8/9 years ago. At [facility], infectious work-up showed (+) Staph Epi in 4/4 bottles. TTE showed large pericardial effusion, no notable vegetations. Pt was on Vanco IV and now on Cefazolin IV. Plan to remove mediport soon as this is the assumes source. Allergies Allergy/AdvReac Type Severity Reaction Status Date / Time bee venom protein (honey bee) Allergy Severe SHORTNESS Verified 09/05/25 00:36 OF BREATH ondansetron Allergy Intermediate OVER ALL Verified 09/05/25 00:36 SWELLING Home Medications Medication Instructions Recorded Confirmed Type aspirin 81 mg tablet,delayed 81 mg PO QAM 09/11/19 09/11/25 History release (Alejo Low Dose Aspirin) epinephrine 0.3 mg/0.3 mL 0.3 mg subcut DIRECTED PRN 09/11/19 09/11/25 History injection, auto-injector (EpiPen) Anaphylaxis insulin lispro 100 unit/mL 15 unit subcut AC PRN PUMP FAILURE 09/11/19 09/11/25 History subcutaneous pen (Humalog KwikPen (U-100) Insulin) rosuvastatin 20 mg tablet (Crestor) 20 mg PO QAM 09/11/19 09/11/25 History tamsulosin 0.4 mg capsule (Flomax) 0.4 mg PO HS 09/11/19 09/11/25 History mycophenolate sodium 180 mg 360 mg (2 x 180 mg) PO BID #120 04/21/22 09/11/25 Rx tablet,delayed release tabs pregabalin 225 mg capsule 225 mg PO QPM 12/08/23 09/11/25 History Lactobacillus acidophilus 10 10,000 mmu cells PO DAILY 08/28/25 09/11/25 History billion cell capsule (Probiotic) glucagon 1 mg/0.2 mL subcutaneous 1 mg subcut DIRECTED PRN 08/28/25 09/11/25 History auto-injector (Gvoke HypoPen UNRESPONSIVE W/HYPOGLYCEMIA 2-Pack) insulin glargine 100 unit/mL (3 0 unit subcut DIRECTED 08/28/25 09/11/25 History mL) subcutaneous pen (Lantus Solostar U-100 Insulin) insulin lispro 100 unit/mL 1 sliding scale dose continuous 08/28/25 09/11/25 History subcutaneous solution subcutaneous infusion USEASDIRECTD insulin lispro 100 unit/mL 1 sliding scale dose continuous 08/28/25 09/11/25 History subcutaneous solution (Humalog subcutaneous infusion USEASDIRECTD U-100 Insulin) tacrolimus 1 mg capsule, 0.5 mg PO QPM 08/28/25 09/11/25 History immediate-release tacrolimus 1 mg capsule, 1 mg PO QAM 08/28/25 09/11/25 History immediate-release prasugrel HCl 10 mg tablet 10 mg PO QAM 30 days #30 tabs 09/03/25 09/11/25 Rx cyanocobalamin (vitamin B-12) 500 500 mcg PO QAM 30 days #30 tabs 09/05/25 09/11/25 Rx mcg tablet midodrine 2.5 mg tablet 2.5 mg PO TID@0800,1200,1700 30 09/05/25 09/11/25 Rx days #90 tabs Patient History Medical History T2DM (type 2 diabetes mellitus) Failure of outpatient treatment Infected surgical wound Ulcer of right foot due to type 2 diabetes mellitus Fever History of peritoneal dialysis Gastroparesis Diabetes Surgical History Status post right foot surgery Family History Father Colorectal cancer Mother Diabetes Social History Smoking Status: Never smoker Tobacco Type: Smokeless Tobacco (Dip or Chew) Second Hand Exposure: Yes; Do You Dip or Chew Tobacco: Yes; Hx Alcohol Use: No Hx Substance Use: No Preferred Language: Telugu Communication Ability: Effective Wire Spring Relay Adjuster Required: No Beliefs That Will Affect Care: None marital status: Current Living Situation: Spouse Feels Safe at Home: Yes Assistive Devices: Cane Review of Systems all negative and reviewed in detail. Physical Exam NA Results & Data Vital Signs (Past 12 Hours) Vital Signs Temp Pulse Pulse Resp BP Pulse Ox O2 Del Method 09/13/25 07:55 78 09/13/25 07:19 36.8 C 80 17 98/66 L 94 Room Air 09/13/25 02:26 36.8 C 86 18 114/70 95 Room Air 09/12/25 22:53 37.2 C 90 18 109/60 95 Room Air Laboratory Results Blood culture on 09/11/2025 Test Result Flag Reference Site Bld Cult Resist | | | | mecAC Resist Gn | Not Detected | | NotDetected | | Marker for methicillin/oxacillin resistance in non- S.aureus | Staphylococci (only reported for S. epidermidis and S. | lugdunensis Bld Cult GrmPos | | | | Staph spp | | | | Staph spp | DETECTED | A | NotDetected | S epidermidis | DETECTED | A | NotDetected | | Critical result called to EZ GARCIA | On 09/12/25 at 0459 by Tushar Weston and | results were verbalized back. Bld Cult ID PCR | See PCR Comment | | NotDetected 09/12/25 08:08 Aerobic Blood Culture - Preliminary Blood No growth in Aerobic bottle after 24 hours. Anaerobic Blood Culture - Preliminary No growth in Anaerobic bottle after 24 hours. 09/12/25 08:11 Aerobic Blood Culture - Preliminary Blood No growth in Aerobic bottle after 24 hours. Anaerobic Blood Culture - Preliminary No growth in Anaerobic bottle after 24 hours. 09/11/25 11:02 Aerobic Blood Culture - Preliminary Blood Gram positive cocci clusters Anaerobic Blood Culture - Preliminary Gram positive cocci clusters 09/13/25 09/13/25 09/11/25 08:31 05:33 19:31 WBC 12.22 H RBC 3.51 L Hgb 10.3 L Hct 31.9 L MCV 90.9 MCH 29.3 MCHC 32.3 RDW Std Deviation 45.1 RDW Coeff of Dandre 13.6 Plt Count 423 H MPV 9.8 Sodium 138 Potassium 4.3 Chloride 102 Carbon Dioxide 28 Anion Gap 8 BUN 26 H Creatinine 1.33 Est Cr Clr Drug Dosing 82.3 eGFR 61.19 BUN/Creatinine Ratio 19.5 Glucose 128 H POC Glucose 154 H Calcium 8.9 Ref Lab Test Result See Scanned Report Diagnostic Findings CXR on 09/11/2025 FINDINGS: Cardiac silhouette is enlarged. Right IJ Cenewc-f-Lemb catheter appears stable. A battery pack projects over the left heart border. Pulmonary vascular congestion. A pneumothorax. A vascular stent is seen within the left subclavian distribution. Trace pleural effusions with mild left basilar opacities which have progressed from prior. Bones appear grossly intact. IMPRESSION: 1. Cardiomegaly with pulmonary vascular congestion. 2. Trace pleural effusions with mild left basilar opacities, likely atelectatic. Medications Administered Home Medications Medication Instructions Recorded Confirmed Last Taken aspirin 81 mg tablet,delayed 81 mg PO QAM 09/11/19 09/11/25 09/04/25 release (Alejo Low Dose Aspirin) epinephrine 0.3 mg/0.3 mL 0.3 mg subcut DIRECTED PRN 09/11/19 09/11/25 Unknown injection, auto-injector (EpiPen) Anaphylaxis insulin lispro 100 unit/mL 15 unit subcut AC PRN PUMP FAILURE 09/11/19 09/11/25 09/04/25 subcutaneous pen (Humalog KwikPen (U-100) Insulin) rosuvastatin 20 mg tablet (Crestor) 20 mg PO QAM 09/11/19 09/11/25 09/04/25 tamsulosin 0.4 mg capsule (Flomax) 0.4 mg PO HS 09/11/19 09/11/25 09/04/25 mycophenolate sodium 180 mg 360 mg (2 x 180 mg) PO BID #120 04/21/22 09/11/25 09/04/25 tablet,delayed release tabs pregabalin 225 mg capsule 225 mg PO QPM 12/08/23 09/11/25 09/04/25 Lactobacillus acidophilus 10 10,000 mmu cells PO DAILY 08/28/25 09/11/25 09/04/25 billion cell capsule (Probiotic) glucagon 1 mg/0.2 mL subcutaneous 1 mg subcut DIRECTED PRN 08/28/25 09/11/25 Unknown auto-injector (Gvoke HypoPen UNRESPONSIVE W/HYPOGLYCEMIA 2-Pack) insulin glargine 100 unit/mL (3 0 unit subcut DIRECTED 08/28/25 09/11/25 Unknown mL) subcutaneous pen (Lantus Solostar U-100 Insulin) insulin lispro 100 unit/mL 1 sliding scale dose continuous 08/28/25 09/11/25 09/04/25 subcutaneous solution subcutaneous infusion USEASDIRECTD insulin lispro 100 unit/mL 1 sliding scale dose continuous 08/28/25 09/11/25 09/04/25 subcutaneous solution (Humalog subcutaneous infusion USEASDIRECTD U-100 Insulin) tacrolimus 1 mg capsule, 0.5 mg PO QPM 08/28/25 09/11/25 09/04/25 immediate-release tacrolimus 1 mg capsule, 1 mg PO QAM 08/28/25 09/11/25 09/04/25 immediate-release prasugrel HCl 10 mg tablet 10 mg PO QAM 30 days #30 tabs 09/03/25 09/11/25 09/04/25 cyanocobalamin (vitamin B-12) 500 500 mcg PO QAM 30 days #30 tabs 09/05/25 09/11/25 Unknown mcg tablet midodrine 2.5 mg tablet 2.5 mg PO TID@0800,1200,1700 30 09/05/25 09/11/25 Unknown days #90 tabs Active Medications Generic Name Dose Route Start Last Admin Trade Name Freq PRN Reason Stop Dose Admin Aspirin 81 mg 09/12/25 09:00 09/13/25 08:13 Aspirin 81 Mg Ectab PO 10/12/25 08:59 81 mg QAM JOSE Administration Cyanocobalamin 500 mcg 09/12/25 09:00 09/13/25 08:13 Cyanocobalamin (B-12) 500 Mcg Tablet PO 10/12/25 08:59 500 mcg QAM JOSE Administration Heparin Sodium (Porcine) 5 ml 09/12/25 04:58 09/12/25 16:35 Heparin 100 Unit/Ml 5ml Flush FLUSH 10/12/25 04:57 5 ml PRN PRN Administration Flush Cefazolin Sodium 2,000 mg/ 15 mls @ 3.75 mls/min 09/12/25 14:00 09/13/25 13:16 Syringe IV 09/26/25 13:59 3.75 mls/min Q8H JOSE Administration Insulin Aspart 0 each 09/12/25 12:20 09/13/25 11:49 Insulin, Rapid-Acting Pump SC 10/12/25 12:19 Not Given ACHS [facility] Protocol Lactobacillus Acidophilus 1,250 mg 09/12/25 09:00 09/13/25 08:13 Advanced Probiotic 625 Mg Capsule PO 10/12/25 08:59 1,250 mg DAILY JOSE Administration Midodrine 2.5 mg 09/11/25 17:00 09/13/25 13:03 Midodrine Hcl 2.5 Mg Tab PO 10/11/25 16:59 2.5 mg TID@0800,1200,1700 JOSE Administration Miscellaneous 0 each 09/12/25 16:30 09/13/25 11:48 Continuous Glucose Monitor N/A 10/12/25 16:29 Not Given ACHS JOSE Mycophenolate Sodium 360 mg 09/11/25 21:00 09/13/25 08:13 Mycophenolate Sodium 180 Mg Tab PO 10/11/25 20:59 360 mg BID JOSE Administration Pantoprazole Sodium 40 mg 09/12/25 09:00 09/13/25 08:13 Pantoprazole 40 Mg Tab PO 10/12/25 08:59 40 mg QAM JOSE Administration Prasugrel 10 mg 09/12/25 09:00 09/13/25 08:13 Prasugrel Tab 10 Mg Tab PO 10/12/25 08:59 10 mg QAM JOSE Administration Prednisone 20 mg 09/13/25 09:00 09/13/25 08:13 Prednisone 20 Mg Tab PO 10/13/25 08:59 20 mg DAILY JOSE Administration Pregabalin 225 mg 09/11/25 21:00 09/12/25 20:59 Pregabalin 75 Mg Cap PO 10/11/25 20:59 225 mg QPM JOSE Administration Rosuvastatin Calcium 20 mg 09/12/25 09:00 09/13/25 08:14 Rosuvastatin Calcium 20 Mg Tab PO 10/12/25 08:59 20 mg QAM JOSE Administration Tacrolimus 1 mg 09/12/25 09:00 09/13/25 08:13 Tacrolimus 1 Mg Cap PO 10/12/25 08:59 1 mg QAM JOSE Administration Tacrolimus 0.5 mg 09/11/25 21:00 09/12/25 20:59 Tacrolimus 0.5 Mg Cap PO 10/11/25 20:59 0.5 mg QPM JOSE Administration Tamsulosin HCl 0.4 mg 09/11/25 21:00 09/12/25 21:00 Tamsulosin Hcl 0.4 Mg Cap PO 10/11/25 20:59 0.4 mg HS JOSE Administration"
--- NOTE | 2025-09-13 11:56 | Surgery Consultation ---
Date of Consultation September 13, 2025 Assessment & Plan (1) Bacteremia: (2) Acute on chronic HFrEF (heart failure with reduced ejection fraction): (3) CAD (coronary artery disease): (4) Bradycardia: (5) STEMI (ST elevation myocardial infarction): 59 yo male with history of kidney transplant in 2018, CAD with recent STEMI and stent placement on dual antiplatelet therapy two weeks ago now with pericardial effusion and bacteremia. Aport present with no signs of infection. Blood culture drawn from port was negative. Given patient's complex recent medical history and active antiplatelet therapy with no signs of infection at port site, would not recommend port removal at this time. Bleeding risk significantly elevated at this time. He had episode of bacteremia in 2021 for foot osteomyelitis and port was not removed at that time. Would recommend IV antibiotics and if any changes can then consider removal. Discussed with Dr. Doyle who agrees with above. History of Present Illness Reason for Consultation: bacteremia, port removal Requesting Physician: Kervin Levy Do Attending Physician: Kervin Levy DO History of Present Illness Ramesh is a 59 yo male with history of ESRD with kidney transplant in 2018, recent admission end of August with STEMI and required cardiac catheterization on antiplatelet therapy and baby aspirin now with bacteremia 3/4 cultures, negative from central line, and central venous port present without signs of infection. Our services have been consulted for port removal. He has history of osteomyelitis and positive blood cultures in 04/2022 and was treated with prolonged course of IV antibiotics. Port was not removed at that time. Denies of having any issues with port infections or infusions with port since it has been placed 7-8 years ago. Allergies Allergy/AdvReac Type Severity Reaction Status Date / Time bee venom protein (honey bee) Allergy Severe SHORTNESS Verified 09/05/25 00:36 OF BREATH ondansetron Allergy Intermediate OVER ALL Verified 09/05/25 00:36 SWELLING Home Medications Medication Instructions Recorded Confirmed Type aspirin 81 mg tablet,delayed 81 mg PO QAM 09/11/19 09/11/25 History release (Alejo Low Dose Aspirin) epinephrine 0.3 mg/0.3 mL 0.3 mg subcut DIRECTED PRN 09/11/19 09/11/25 History injection, auto-injector (EpiPen) Anaphylaxis insulin lispro 100 unit/mL 15 unit subcut AC PRN PUMP FAILURE 09/11/19 09/11/25 History subcutaneous pen (Humalog KwikPen (U-100) Insulin) rosuvastatin 20 mg tablet (Crestor) 20 mg PO QAM 09/11/19 09/11/25 History tamsulosin 0.4 mg capsule (Flomax) 0.4 mg PO HS 09/11/19 09/11/25 History mycophenolate sodium 180 mg 360 mg (2 x 180 mg) PO BID #120 04/21/22 09/11/25 Rx tablet,delayed release tabs pregabalin 225 mg capsule 225 mg PO QPM 12/08/23 09/11/25 History Lactobacillus acidophilus 10 10,000 mmu cells PO DAILY 08/28/25 09/11/25 History billion cell capsule (Probiotic) glucagon 1 mg/0.2 mL subcutaneous 1 mg subcut DIRECTED PRN 08/28/25 09/11/25 History auto-injector (Gvoke HypoPen UNRESPONSIVE W/HYPOGLYCEMIA 2-Pack) insulin glargine 100 unit/mL (3 0 unit subcut DIRECTED 08/28/25 09/11/25 History mL) subcutaneous pen (Lantus Solostar U-100 Insulin) insulin lispro 100 unit/mL 1 sliding scale dose continuous 08/28/25 09/11/25 History subcutaneous solution subcutaneous infusion USEASDIRECTD insulin lispro 100 unit/mL 1 sliding scale dose continuous 08/28/25 09/11/25 History subcutaneous solution (Humalog subcutaneous infusion USEASDIRECTD U-100 Insulin) tacrolimus 1 mg capsule, 0.5 mg PO QPM 08/28/25 09/11/25 History immediate-release tacrolimus 1 mg capsule, 1 mg PO QAM 08/28/25 09/11/25 History immediate-release prasugrel HCl 10 mg tablet 10 mg PO QAM 30 days #30 tabs 09/03/25 09/11/25 Rx cyanocobalamin (vitamin B-12) 500 500 mcg PO QAM 30 days #30 tabs 09/05/25 09/11/25 Rx mcg tablet midodrine 2.5 mg tablet 2.5 mg PO TID@0800,1200,1700 30 09/05/25 09/11/25 Rx days #90 tabs Patient History Medical History T2DM (type 2 diabetes mellitus) Failure of outpatient treatment Infected surgical wound Ulcer of right foot due to type 2 diabetes mellitus Fever History of peritoneal dialysis Gastroparesis Diabetes Surgical History Status post right foot surgery Family History Father Colorectal cancer Mother Diabetes Social History Smoking Status: Never smoker Tobacco Type: Smokeless Tobacco (Dip or Chew) Second Hand Exposure: Yes; Do You Dip or Chew Tobacco: Yes; Tobacco Cessation Education Requested by Patient: Yes Hx Alcohol Use: No Hx Substance Use: No Preferred Language: Divehi Communication Ability: Effective Trauma Registrar Required: No Beliefs That Will Affect Care: None marital status: Current Living Situation: Spouse Other Information That Helps Us Care for You: No Feels Safe at Home: Yes Safety Concerns: Feels Safe At This Time Assistive Devices: Cane Review of Systems Review of Systems: All systems reviewed & are unremarkable except as noted in HPI & below Physical Exam Constitutional: cooperative and comfortable; no acute distress Respiratory: normal respiratory effort; no respiratory distress, no labored breathing and no retractions Chest (Breasts): Additional Comments: There is a right subcutaneous port present, currently accessed without surrounding erythema, induration or fluctuance. No pain to palpation. Skin: no rashes, warm and dry Psychiatric: Orientation: alert and oriented x 3 Results & Data Vital Signs (Past 12 Hours) Vital Signs Temp Pulse Pulse Resp BP Pulse Ox O2 Del Method 09/13/25 07:55 78 09/13/25 07:19 36.8 C 80 17 98/66 L 94 Room Air 09/13/25 02:26 36.8 C 86 18 114/70 95 Room Air Laboratory Results 09/13/25 09/13/25 09/11/25 Range/Units 08:31 05:33 19:31 WBC 12.22 H (4.8-10.8) K/ul RBC 3.51 L (4.70-6.10) M/uL Hgb 10.3 L (14.0-18.0) g/dL Hct 31.9 L (42.0-52.0) % MCV 90.9 (80.0-100.0) fL MCH 29.3 (25.0-34.0) pg MCHC 32.3 (32.0-36.0) g/dL RDW Std Deviation 45.1 (36.4-46.3) fL RDW Coeff of Dandre 13.6 (11.5-14.5) % Plt Count 423 H (130-400) K/uL MPV 9.8 (9.4-12.4) fL Sodium 138 (136-145) mmol/L Potassium 4.3 (3.5-5.1) mmol/L Chloride 102 (98-107) mmol/L Carbon Dioxide 28 (21-32) mmol/L Anion Gap 8 (3-11) BUN 26 H (6-23) mg/dl Creatinine 1.33 (0.6-1.4) mg/dl Est Cr Clr Drug Dosing 82.3 ml/min eGFR 61.19 BUN/Creatinine Ratio 19.5 (10-20) Glucose 128 H (70-99(Fasting)) mg/dl POC Glucose 154 H (70-99) mg/dl Calcium 8.9 (8.6-10.3) mg/dl Ref Lab Test Result See Scanned Report Microbiology 09/11/25 10:50 Aerobic Blood Culture - Preliminary Blood Staphylococcus epidermidis Anaerobic Blood Culture - Preliminary Staphylococcus epidermidis 09/11/25 11:02 Aerobic Blood Culture - Preliminary Blood Gram positive cocci clusters Anaerobic Blood Culture - Preliminary Staphylococcus epidermidis 09/12/25 08:08 Aerobic Blood Culture - Preliminary Blood No growth in Aerobic bottle after 24 hours. Anaerobic Blood Culture - Preliminary No growth in Anaerobic bottle after 24 hours. 09/12/25 08:11 Aerobic Blood Culture - Preliminary Blood No growth in Aerobic bottle after 24 hours. Anaerobic Blood Culture - Preliminary No growth in Anaerobic bottle after 24 hours. Diagnostic Findings XR chest 1V portable HISTORY: 59 years-old Male weight gain, recent AR COMPARISON: 09/04/2020 TECHNIQUE: AP view the chest FINDINGS: Cardiac silhouette is enlarged. Right IJ [id number] catheter appears stable. A battery pack projects over the left heart border. Pulmonary vascular congestion. A pneumothorax. A vascular stent is seen within the left subclavian distribution. Trace pleural effusions with mild left basilar opacities which have progressed from prior. Bones appear grossly intact. IMPRESSION: 1. Cardiomegaly with pulmonary vascular congestion. 2. Trace pleural effusions with mild left basilar opacities, likely atelectatic. (5) STEMI (ST elevation myocardial infarction) Involved coronary artery: right coronary artery Qualified Code(s): I21.11 - ST elevation (STEMI) myocardial infarction involving right coronary artery
--- NOTE | 2025-09-13 12:01 | Cardiology Progress Note ---
Date of Service September 13, 2025 Assessment & Plan (1) Acute on chronic HFrEF (heart failure with reduced ejection fraction): Plan: * Ejection fraction as measured today in the range of 30-35% down from 40-50% at the time of postmyocardial infarction echocardiogram dated 08/22/2025. * Suspected patient did receive IV fluids to optimize his renal function prior to his staged PCI, and probably received additional fluid resuscitation when he came back for syncopal episode. * He is not on diuretics as an outpatient and has not had issues with recent volume overload until the last week. * Received furosemide 20 mg IV (one dose on 09/11 and one dose on 09/12) * Avoiding beta kassy and other AV hollie blockers due to conduction system disease, transient 3rd degree AVB noted for 30 hours upon presentation for STEMI in 08/2025 * Avoid ACEI / ARB / Entresto in effort to optimize renal function. * Continue aspirin and prasugrel. Continue rosuvastatin. (2) Pericardial effusion: Plan: * Large circumferential pericardial effusion noted on echo 09/13/25, findings of pre tamponade with dilatation of the inferior vena cava. * Inflammatory markers elevated including ESR and CRP * Patient without symptoms to suggest a myocarditis or pericarditis however post [place] Osman's syndrome is certainly a consideration. * Low dose prednisone 20 mg started. Nonsteroidal anti-inflammatory medication and high-dose aspirin contraindicated in this case. * Discussed addition of colchicine with nephrology, given risk of worsening renal function will avoid at present. * NPO for pericardiocentesis afternoon of 09/13/25. (3) Bradycardia: Plan: * Avoiding AV hollie blockers. No bradycardia present. He is currently wearing his ZIO monitor as previously prescribed. (4) Bacteremia: Plan: * 2/2 Blood cultures positive for gram-positive cocci, PCR consistent with staph epidermidis with similar findings in 2021 in 2022 * Patient on chronic immunosuppressants due to renal transplant. * Patient without liat infectious symptoms at present * Did have transvenous temporary pacemaker via the right femoral vein approach last month that remained in place for approximately 36 hours. * Has an indwelling port. This is in place due to difficult IV access and treatm ent with Betalacept as part of his immunosuppression therapy. This agent was stopped due to cost and he has been on Tacrolimus which he is not tolerating with GI upset symptoms. Prior auth for Betalacept recently obtained and he was to transition back to that which would once again require port access. * Has history of left foot wound/dry gangrene and 2023, Right calcaneus osteomyelitis 2021. Patient has two mild healing lacerations (base of left first toe, and lateral portion of right foot that do not appear infected). Spouse pays vigilant attention to his feet. * No vegetation on transthoracic echo x 2 this admission. * Continue antibiotics (5) Hx of kidney transplant: Plan: * concerns as noted above. Stable renal function at present. (6) Autonomic neuropathy: Plan: * Longstanding h/o orthostatic intolerance . Documented in outpatient notes dating back to 2012. Stable at present. 50 minutes spent in direct patinet care. Chela Dodd DO Admission and Anticipated Discharge Date Admission Date: September 11, 2025 Subjective Mr Tamez was seen in cardiology follow up. Spouse, Aniya, at the bedside. He denies fevers or chills. He feels his shortness of breath is improved compared to when he came to the hospital. He notes his blood pressure reading are lower than his normal baseline. He notes hand and leg edema is improved, but still has swollen feet which is not present at baseline. Telemetry reveals sinus rhythm with rate ranging from 70-90 bpm. Review of Systems Review of Systems: All systems reviewed & are unremarkable except as noted in HPI & below Physical Exam Physical Exam: Temp Pulse Resp BP Pulse Ox O2 Del Method 36.8 C 78 17 98/66 L 94 Room Air 09/13/25 07:19 09/13/25 07:55 09/13/25 07:19 09/13/25 07:19 09/13/25 07:19 09/13/25 07:19 General: no acute distress and stated age Eyes: conjunctiva are pink and non-injected, sclera clear Neck: normal jugular venous pulse, no hepatojugular reflux Chest: normal shape and normal respiratory effort Lungs:Decreased breath sounds bilaterally at the base Cardiac Exam: - regular heart sounds, no murmurs, rubs, or gallops Abdomen: abdomen soft, non-tender, no abnormal masses and no hepatosplenomegaly Extremities: 1+ bilateral pedal edema Neuro:awake, conversant, follows commands, no focal motor deficits Psych: appropriate affect and insight. Results & Data Vital Signs (Past 12 Hours) Vital Signs Temp Pulse Pulse Resp BP Pulse Ox O2 Del Method 09/13/25 07:55 78 09/13/25 07:19 36.8 C 80 17 98/66 L 94 Room Air 09/13/25 02:26 36.8 C 86 18 114/70 95 Room Air Laboratory Results CBC 09/13/25 Range/Units 05:33 WBC 12.22 H (4.8-10.8) K/ul RBC 3.51 L (4.70-6.10) M/uL Hgb 10.3 L (14.0-18.0) g/dL Hct 31.9 L (42.0-52.0) % Plt Count 423 H (130-400) K/uL Comprehensive Metabolic Panel 09/13/25 Range/Units 05:33 Sodium 138 (136-145) mmol/L Potassium 4.3 (3.5-5.1) mmol/L Chloride 102 (98-107) mmol/L Carbon Dioxide 28 (21-32) mmol/L BUN 26 H (6-23) mg/dl Creatinine 1.33 (0.6-1.4) mg/dl Glucose 128 H (70-99(Fasting)) mg/dl Calcium 8.9 (8.6-10.3) mg/dl Intake and Output 09/12/25 09/13/25 09/13/25 22:59 06:59 14:59 Intake Total 240 / 2300 440 / 2300 Output Total 1025 / 1176 Balance -785 / 1124 440 / 1124 Intake: Oral 240 / 1750 440 / 1750 Output: Urine 1025 / 1175 Other: Weight 119.6 kg Weight Measurement Method Standing Scale Diagnostic Findings CBC 09/13/25 Range/Units 05:33 WBC 12.22 H (4.8-10.8) K/ul RBC 3.51 L (4.70-6.10) M/uL Hgb 10.3 L (14.0-18.0) g/dL Hct 31.9 L (42.0-52.0) % Plt Count 423 H (130-400) K/uL Comprehensive Metabolic Panel 09/13/25 Range/Units 05:33 Sodium 138 (136-145) mmol/L Potassium 4.3 (3.5-5.1) mmol/L Chloride 102 (98-107) mmol/L Carbon Dioxide 28 (21-32) mmol/L BUN 26 H (6-23) mg/dl Creatinine 1.33 (0.6-1.4) mg/dl Glucose 128 H (70-99(Fasting)) mg/dl Calcium 8.9 (8.6-10.3) mg/dl Intake and Output 09/12/25 09/13/25 09/13/25 22:59 06:59 14:59 Intake Total 240 / 2300 440 / 2300 Output Total 1025 / 1176 Balance -785 / 1124 440 / 1124 Intake: Oral 240 / 1750 440 / 1750 Output: Urine 1025 / 1175 Other: Weight 119.6 kg Weight Measurement Method Standing Scale Coding Level of Care Code 66434 SUB INP/OBS CARE 3/50MIN Diagnoses Acute on chronic HFrEF (heart failure with reduced ejection fraction) I50.23 Pericardial effusion I31.39 Bradycardia R00.1 Bacteremia R78.81 Hx of kidney transplant Z94.0 Autonomic neuropathy G90.9
--- NOTE | 2025-09-13 14:55 | Pre Anesthesia Assessment ---
Date of Service September 13, 2025 Pre Sedation Assessment Vital Signs Temp Pulse Pulse Resp BP Pulse Ox O2 Del Method 09/13/25 14:20 78 16 138/93 91 Room Air 09/13/25 12:53 98.2 F 75 18 100/69 94 Room Air 09/13/25 07:55 78 09/13/25 07:19 98.2 F 80 17 98/66 L 94 Room Air 09/13/25 02:26 98.2 F 86 18 114/70 95 Room Air 09/12/25 22:53 99.0 F 90 18 109/60 95 Room Air 09/12/25 21:37 85 09/12/25 21:15 Room Air 09/12/25 19:42 98.6 F 81 18 132/82 96 Room Air 09/12/25 15:39 98.6 F 84 17 127/76 95 Room Air Cardiovascular + regular rate Respiratory normal respiratory effort, lungs clear to auscultation Pre-Sedation Airway Assessment Smoking Status: Never smoker Hx Sleep Apnea: No Hx Difficult Intubation: No Short, Thick Neck: No Thyromental Distance: > or= 3.5 Finger Breadths Oral Cavity: + WNL Mallampati Class: III ASA: ASA3 NPO Status Date of Last Intake of Fluids: 09/13/25 Time of Last Intake of Fluids: 12:00 Last Oral Intake of Fluids Comment: sips of water with meds Date of Last Intake of Solid Food: 09/12/25 Time of Last Intake of Solid Foods: 18:00 Procedure Planning Contraindications for Sedation: none Current Medications Reviewed: Yes Notes The planned sedation has been discussed with the patient. Informed Consent was obtained. I have identified the patient, determined the appropriateness of sedation and have assessed the patient immediately prior to the procedure. All medicine(s) and interventions are by my order.
[2025-09-13] MEDS: MIDAZOLAM HCL 1 MG/ML 2ML VIAL ONE ×2 (16:52→17:08)
--- NOTE | 2025-09-13 17:39 | Post Anesthesia Assessment ---
Date of Service September 13, 2025 Post Sedation Assessment Vital Signs Temp Pulse Pulse Resp BP Pulse Ox O2 Del Method 09/13/25 14:58 75 09/13/25 14:20 78 16 138/93 91 Room Air 09/13/25 12:53 98.2 F 75 18 100/69 94 Room Air 09/13/25 07:55 78 09/13/25 07:19 98.2 F 80 17 98/66 L 94 Room Air 09/13/25 02:26 98.2 F 86 18 114/70 95 Room Air 09/12/25 22:53 99.0 F 90 18 109/60 95 Room Air 09/12/25 21:37 85 09/12/25 21:15 Room Air 09/12/25 19:42 98.6 F 81 18 132/82 96 Room Air Recovery Score Activity: Moves 4 extremities Respiration: Deep Breath/Cough Circulation: +/-20% PreAnes Value Consciousness: Fully Awake Oxygen Saturation: O2 needed for >90% Discharge Sedation Level of Care: Fast Track Phase II
--- NOTE | 2025-09-13 17:49 | Cardiac Catheterization ---
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 Cardiac Status Clinical evaluation leading to the procedure CAD Presenation: Sx unlikely to be ischemic Diagnostic Physicians Name: Amadou Shay MD Closure Device Recommendations: Medical Therapy and/or Counseling Cardiac Cath Procedure Full Procedure Date September 13, 2025 Pre-Procedure Diagnosis Pre-Procedure Diagnosis: Pericardial Disease AUC Score AUC Score: 7 Post-Procedure Diagnosis Post-Procedure Diagnosis: Cardiothoracic Finding (Pericardial effusion) Procedure(s) Performed Procedure(s) Performed: Pericardiocentesis Floor Covering Layer Amadou Shay MD Concrete Panel Installer(s) Special Effects Technician Estimated Blood Loss Estimated Blood Loss: 670 Medication(s) Medication(s): Fentanyl, Lidocaine 1% and Versed Summary of Findings Pericardiocentesis Indication: Large pericardial effusion Procedure: Moderate sedation with fentanyl and Versed Pericardial effusion visualized under echocardiographic guidance Via subxiphoid approach local anesthesia with 1% lidocaine via long micropuncture needle Using long 18-gauge femoral needle pericardial space accessed under ultrasound/fluoroscopic guidance 6 Fr sheath placed to pericardial space Intra pericardial space position confirmed via bubble study Opening pericardial pressure 12 mmHg 6 Fr pigtail catheter navigated through sheath over J-wire into pericardial space 670 mL of dark serosanguineous fluid drained from pericardial space Repeat echo showed only trace residual pericardial effusion Drain and sheath removed and sterile dressing placed Summary: 1. Successful pericardiocentesis with removal of 670 mL of dark serosanguineous fluid Recommendations: Follow-up pericardial fluid cell count, cultures, cytology Repeat limited echo tomorrow Hemodynamics Rest Ao:: -- Final Ao: -- LV: -- Recommendations Recommendations: Medical Therapy and/or Counseling Radiation Exposure (mGy) 155 Contrast (mls) -- Anesthesia Moderate 2911-6725 Procedural Complication(s) None Disposition PCU I attest to the content of the Intraoperative Record and any orders documented therein. Any exceptions are noted below. [facility] Card Cath Procedure Codes Therapeutic Services & Ancillary Procedure 1: Cardiovascular Tx and Anc Procedures: 08288 Ultrasonic Guidance Pericardiocentesis Moderate Sedation Procedure 1: Sedation/Anesthesia: 31810 Mod Sedation by the same physician;Init15 Min Child Age 5 & Up PG Care Time/CCT Total # of Minutes Spent Total Time Spent with Patient: Total time spent is greater than 50% in coordination of care (as documented) at patient's floor/unit and/or counseling patient:
[2025-09-14 07:21] LABS: Hematocrit (blood only) 35.3 % (42.0-52.0); Hemoglobin 11.3 g/dL (14.0-18.0); Mean Corpuscular Hemoglobin 29.1 pg (25.0-34.0); Mean Corpuscular Volume 91.0 fL (80.0-100.0); Platelet Count 424 K/uL (130-400); RDW Standard Deviation 45.1 fL (36.4-46.3); Red Blood Count 3.88 M/uL (4.70-6.10); White Blood Count 11.41 K/ul (4.8-10.8)
[2025-09-14 07:59] LABS: Anion Gap 7.0 (3-11); Blood Urea Nitrogen 23.0 mg/dl (6-23); Calcium 8.8 mg/dl (8.6-10.3); Carbon Dioxide 27.0 mmol/L (21-32); Chloride 104.0 mmol/L (98-107); Creatinine Clr Calc Pharmacy 95.4 ml/min; Glucose 147.0 mg/dl (70-99(Fasting)); Potassium 4.5 mmol/L (3.5-5.1); Sodium 138.0 mmol/L (136-145)
--- NOTE | 2025-09-14 08:10 | XCELERA ---
[id number] \\[id number]
--- NOTE | 2025-09-14 08:11 | XCELERA ---
[id number] \\[email or web address]\[email or web address]_[email or web address]\[id number]
--- NOTE | 2025-09-14 10:11 | Cardiology Progress Note ---
Date of Service September 14, 2025 Assessment & Plan (1) Pericardial effusion: Plan: * Large circumferential pericardial effusion noted on echo 09/13/25, findings of pre tamponade with dilatation of the inferior vena cava. Differential diagnosis includes post [place] Osman's given recent STEMI last month or other. * Inflammatory markers elevated including ESR and CRP - however difficult to interpret given finding of bacteremia. * Patient underwent pericardiocentesis on 09/13/25 Yielding 670 mL of dark serosanguineous fluid. Opening pericardial pressure was 12 mmHg. Pericardial fluid sent off for cell count analysis, culture. Cytology ordered and I have placed a call to the lab to confirm cytology order will be processed. * Low dose prednisone 20 mg started. Nonsteroidal anti-inflammatory medication and high-dose aspirin contraindicated in this case. * Discussed addition of colchicine with nephrology, given risk of worsening renal function will avoid at present. * Patient notes feeling shortness of breath and sensation of chest heaviness is subjectively improved after pericardiocentesis. Systolic blood pressure seems to be trending at least 10 points higher since the procedure (2) Bacteremia: Plan: * 2/2 Blood cultures positive for gram-positive cocci, PCR consistent with staph epidermidis with similar findings in 2021 in 2022 * Patient on chronic immunosuppressants due to renal transplant. * Patient without liat infectious symptoms at present * Did have transvenous temporary pacemaker via the right femoral vein approach last month that remained in place for approximately 36 hours. * Has an indwelling port. This is in place due to difficult IV access and treatment with Betalacept as part of his immunosuppression therapy. This agent was stopped due to cost and he has been on Tacrolimus which he is not tolerating with GI upset symptoms. Prior auth for Betalacept recently obtained and he was to transition back to that which would once again require port access. * Has history of left foot wound/dry gangrene and 2023, Right calcaneus osteomyelitis 2021. Patient has two mild healing lacerations (base of left first toe, and lateral portion of right foot that do not appear infected). Spouse pays vigilant attention to his feet. * No vegetation on transthoracic echo x 2 this admission. * Continue antibiotics * Repeat cultures negative thus far. * Ongoing discussion/consideration with regards to whether his port needs to be removed depending on course and culture results. (3) Acute on chronic HFrEF (heart failure with reduced ejection fraction): Plan: * Ejection fraction as measured today in the range of 30-35% down from 40-50% at the time of postmyocardial infarction echocardiogram dated 08/22/2025. * LVEF may have appears acutely worse because of the pericardial effsusion. * No ventricular arrhythmias on telemetry. * Suspected patient did receive IV fluids to optimize his renal function prior to his staged PCI, and probably received additional fluid resuscitation when he came back for syncopal episode. * Received furosemide 20 mg IV (one dose on 09/11 and one dose on 09/12). Hold off on further diuretics at present. * Avoiding beta kassy and other AV hollie blockers due to conduction system disease, transient 3rd degree AVB noted for 30 hours upon presentation for STEMI in 08/2025 * Avoid ACEI / ARB / Entresto in effort to optimize renal function. * Continue aspirin and prasugrel. Continue rosuvastatin. (4) Bradycardia: Plan: * Avoiding AV hollie blockers given transient third-degree AV block at the time of presentation with inferolateral STEMI last month.. No bradycardia present. He is currently wearing his ZIO monitor as previously prescribed.Counseled him that he may return to Zio patch at this point (5) Hx of kidney transplant: Plan: * concerns as noted above. Stable renal function at present. (6) Autonomic neuropathy: Plan: * Longstanding h/o orthostatic intolerance . Documented in outpatient notes dating back to 2012. Stable at present. 50 minutes spent in direct patinet care. Chela Dodd DO Admission and Anticipated Discharge Date Admission Date: September 11, 2025 Subjective Patient seen in cardiology follow up. Notes feeling well. Subjectively , he feels his urinary output has increased post pericardiocentesis noting that he felt his bedside [place] for the first time during this hospital stay during the night last night. Telemetry reveals sinus rhythm in the 70s. Physical Exam Physical Exam: Temp Pulse Resp BP Pulse Ox O2 Del Method O2 Flow Rate 36.3 C L 76 17 127/79 97 Nasal Cannula 1 09/14/25 02:55 09/14/25 09:50 09/14/25 02:55 09/14/25 02:55 09/14/25 02:55 09/14/25 02:55 09/14/25 02:55 General: no acute distress and stated age Eyes: conjunctiva are pink and non-injected, sclera clear Neck: normal jugular venous pulse, no hepatojugular reflux Chest: normal shape and normal respiratory effort Lungs:Decreased breath sounds bilaterally at the base Cardiac Exam: - regular heart sounds, no murmurs, rubs, or gallops Abdomen: abdomen soft, non-tender, no abnormal masses and no hepatosplenomegaly Extremities: 1+ bilateral pedal edema Neuro:awake, conversant, follows commands, no focal motor deficits Psych: appropriate affect and insight. Results & Data Vital Signs (Past 12 Hours) Vital Signs Temp Pulse Pulse Resp BP Pulse Ox O2 Del Method 09/14/25 09:50 76 09/14/25 02:55 36.3 C L 69 17 127/79 97 Nasal Cannula 09/13/25 22:37 36.4 C L 77 17 125/74 93 Nasal Cannula O2 Flow Rate 09/14/25 09:50 09/14/25 02:55 1 09/13/25 22:37 1 Laboratory Results CBC 09/14/25 Range/Units 06:50 WBC 11.41 H (4.8-10.8) K/ul RBC 3.88 L (4.70-6.10) M/uL Hgb 11.3 L (14.0-18.0) g/dL Hct 35.3 L (42.0-52.0) % Plt Count 424 H (130-400) K/uL Comprehensive Metabolic Panel 09/14/25 Range/Units 06:50 Sodium 138 (136-145) mmol/L Potassium 4.5 (3.5-5.1) mmol/L Chloride 104 (98-107) mmol/L Carbon Dioxide 27 (21-32) mmol/L BUN 23 (6-23) mg/dl Creatinine 1.14 (0.6-1.4) mg/dl Glucose 147 H (70-99(Fasting)) mg/dl Calcium 8.8 (8.6-10.3) mg/dl Intake and Output 09/13/25 09/14/25 09/14/25 22:59 06:59 14:59 Output Total 900 / 900 Balance -900 / -900 Output: Urine 900 / 900 Other: Weight 117.9 kg Weight Measurement Method Standing Scale Coding Level of Care Code 45207 SUB INP/OBS CARE 3/50MIN Diagnoses Pericardial effusion I31.39 Bacteremia R78.81 Acute on chronic HFrEF (heart failure with reduced ejection fraction) I50.23 Bradycardia R00.1 Hx of kidney transplant Z94.0 Autonomic neuropathy G90.9
--- NOTE | 2025-09-14 11:16 | Hospitalist Progress Note ---
Date of Service September 14, 2025 Assessment & Plan (1) Acute on chronic HFrEF (heart failure with reduced ejection fraction): (2) Anasarca: (3) CAD (coronary artery disease): (4) T2DM (type 2 diabetes mellitus): Plan This is a 59-year-old male who has significant past medical history of end- stage renal disease status post kidney transplantation in September 2018 previously maintained on belatacept and mycophenolate. This was interrupted due to insurance coverage and currently on mycophenolate and Prograf. He also has significant history of CAD For which he presented to ED on 08/28 with STEMI. He had an acute distal RCA occlusion in setting of known multivessel coronary artery disease. He underwent successful PCI of RCA with 3 DARCI. He was initially bradycardic requiring temporary pacing for about 24 hours. He was not a candidate for beta-blockade due to bradycardia. Ejection fraction at that time was 45%. Nephrology was consulted during stay due to history of CKD and kidney transplant status. His renal function remained stable throughout hospital stay. He did require additional left heart cath due to obstruction of OM 2 in which he underwent DARCI x 1 to OM 2. He was discharged home on 09/03. He represents back today with significant edema and anasarca, weight gain and sob. #Acute on Chronic HFrEF #Anasarca -Not on diuretics at home -EF 45% last admission, TTE 09/11 EF down to 35% with large pericardial effusion -BNP elevated, CXR showing pulm edema -S/p IV lasix with good response -No lasix on 09/13 -On room air this AM Plan -Appreciate cardio and nephro input regarding further diuresis -Monitor renal function, IOs, daily weight closely -GDMT #Pericardial effusion -Incidentally found on repeat TTE 09/11 -He denied any symptoms of myocarditis or pericarditis -Etiology unclear. Post MT carditis ? -S/p pericardiocentesis on 09/13/25 Yielding 670 mL of dark serosanguineous fluid. Plan -F/u on pericardial fluid cytology, cultures -Cardio started prednisone 20mg daily, continue #Positive blood cultures -4/4 blood cultures from 09/11 growing GPCs in clusters. Biofire positive for staph epi -Typically CoNS if a contaminant however 3/4 bottles is concerning for true bacteremia -There is no clear source of infection. Skin examination unrevealing -However his severe peripheral neuropathy puts him at high risk of having an unknown soft tissue cut/infection in the recent past -There were no identifiable vegetations on TTE -At this point, source is likely his R chemoport, which he has had in place for 7 years. he is not actively getting any infusion -mecA/C gene negative Plan -Continue ancef -ID recommending port removal. will discuss with surgery again on tuesday -Appreciate ID input -Repeat blood cultures NGTD, follow #CAD #Recent STEMI s/p DARCI x 3 to RCA and x 1 to OM2 #Hx PAF continue med management with asa, prasugrel, crestor BB contraindicated due to bradycardia (pt required temp pacing post cath) #IDDM insulin pump at home a1c 9.0 consult glycemic pharmacy #Chronic hyponatremia sodium stable, monitor bmp #DVT ppx: SCDS for now in event pt needs pericardial procedure, await nephro/cards consults Dispo: admit to PCU with findings of pericardial effusion FULL CODE PCP: Anna Pt was seen and examined in collaboration with Dr. Levy, please see addendum I spent a total of 56 minutes coordinating, documenting and providing care for this patient excluding time spent in the performance of separately billed services or time spent by another provider/QHP. Admission and Anticipated Discharge Date Admission Date: September 11, 2025 Subjective He continues to improve. says today is the best he has felt in a while. decreased SOB, weight and leg swelling. Physical Exam Physical Exam: Vitals and labs reviewed General: Well appearing, NAD HEENT: EOMI, PERRLA Neck: Supple Cardiac: RRR Lungs: CTA Abd: S NT ND BS positive : Deffered MSK: Full ROM. No obvious deformities Ext: 1+ b/l LE Edema Skin: Warm, Dry Neuro: AOx3 No focal deficits. Psych: Normal Mood Results & Data Results & Data Vital Signs (Past 12 Hours) Vital Signs Temp Pulse Pulse Resp BP Pulse Ox O2 Del Method 09/14/25 10:55 36.8 C 93 H 18 156/75 H 94 Room Air 09/14/25 09:50 76 09/14/25 02:55 36.3 C L 69 17 127/79 97 Nasal Cannula O2 Flow Rate 09/14/25 10:55 09/14/25 09:50 09/14/25 02:55 1 Laboratory Results Abnormal lab results 09/14/25 09/14/25 Range/Units 06:50 07:10 WBC 11.41 H (4.8-10.8) K/ul RBC 3.88 L (4.70-6.10) M/uL Hgb 11.3 L (14.0-18.0) g/dL Hct 35.3 L (42.0-52.0) % Plt Count 424 H (130-400) K/uL BUN/Creatinine Ratio 20.2 H (10-20) Glucose 147 H (70-99(Fasting)) mg/dl POC Glucose 163 H (70-99) mg/dl
[2025-09-15 06:32] LABS: Hematocrit (blood only) 33.6 % (42.0-52.0); Hemoglobin 11.0 g/dL (14.0-18.0); Mean Corpuscular Hemoglobin 29.6 pg (25.0-34.0); Mean Corpuscular Volume 90.3 fL (80.0-100.0); Platelet Count 418 K/uL (130-400); RDW Standard Deviation 42.6 fL (36.4-46.3); Red Blood Count 3.72 M/uL (4.70-6.10); White Blood Count 10.08 K/ul (4.8-10.8)
[2025-09-15 07:11] LABS: Anion Gap 7.0 (3-11); Blood Urea Nitrogen 20.0 mg/dl (6-23); Calcium 8.9 mg/dl (8.6-10.3); Carbon Dioxide 28.0 mmol/L (21-32); Chloride 103.0 mmol/L (98-107); Creatinine Clr Calc Pharmacy 109.6 ml/min; Glucose 141.0 mg/dl (70-99(Fasting)); Potassium 4.2 mmol/L (3.5-5.1); Sodium 138.0 mmol/L (136-145)
--- NOTE | 2025-09-15 09:54 | Hospitalist Progress Note ---
Date of Service September 15, 2025 Assessment & Plan (1) Acute on chronic HFrEF (heart failure with reduced ejection fraction): (2) Anasarca: (3) CAD (coronary artery disease): (4) T2DM (type 2 diabetes mellitus): Plan This is a 59-year-old male who has significant past medical history of end- stage renal disease status post kidney transplantation in September 2018 previously maintained on belatacept and mycophenolate. This was interrupted due to insurance coverage and currently on mycophenolate and Prograf. He also has significant history of CAD For which he presented to ED on 08/28 with STEMI. He had an acute distal RCA occlusion in setting of known multivessel coronary artery disease. He underwent successful PCI of RCA with 3 DARCI. He was initially bradycardic requiring temporary pacing for about 24 hours. He was not a candidate for beta-blockade due to bradycardia. Ejection fraction at that time was 45%. Nephrology was consulted during stay due to history of CKD and kidney transplant status. His renal function remained stable throughout hospital stay. He did require additional left heart cath due to obstruction of OM 2 in which he underwent DARCI x 1 to OM 2. He was discharged home on 09/03. He represents back today with significant edema and anasarca, weight gain and sob. #Acute on Chronic HFrEF #Anasarca -Not on diuretics at home -EF 45% last admission, TTE 09/11 EF down to 35% with large pericardial effusion -BNP elevated, CXR showing pulm edema -S/p IV lasix with good response -No lasix on 09/13 -On room air this AM Plan -Appreciate cardio and nephro input regarding further diuresis -Monitor renal function, IOs, daily weight closely -GDMT -Possibly DC home tomorrow if ok with cardio, nephro and ID #Pericardial effusion -Incidentally found on repeat TTE 09/11 -He denied any symptoms of myocarditis or pericarditis -Etiology unclear. Post NM carditis ? -S/p pericardiocentesis on 09/13/25 Yielding 670 mL of dark serosanguineous fluid. Plan -F/u on pericardial fluid cytology, cultures --> NGTD -Cardio started prednisone 20mg daily, continue #Positive blood cultures -4/4 blood cultures from 09/11 growing GPCs in clusters. Biofire positive for staph epi -Typically CoNS if a contaminant however 3/4 bottles is concerning for true bacteremia -There is no clear source of infection. Skin examination unrevealing -However his severe peripheral neuropathy puts him at high risk of having an unknown soft tissue cut/infection in the recent past -There were no identifiable vegetations on TTE -At this point, source is likely his R chemoport, which he has had in place for 7 years. he is not actively getting any infusion -mecA/C gene negative Plan -Continue ancef -ID recommending port removal. will discuss with surgery and ID again on tuesday -Appreciate ID input -Repeat blood cultures NGTD, follow #CAD #Recent STEMI s/p DARCI x 3 to RCA and x 1 to OM2 #Hx PAF continue med management with asa, prasugrel, crestor BB contraindicated due to bradycardia (pt required temp pacing post cath) #IDDM insulin pump at home a1c 9.0 consult glycemic pharmacy #Chronic hyponatremia sodium stable, monitor bmp #DVT ppx: SCDS for now in event pt needs pericardial procedure, await nephro/cards consults Dispo: admit to PCU with findings of pericardial effusion FULL CODE PCP: Anna Pt was seen and examined in collaboration with Dr. Levy, please see addendum I spent a total of 51 minutes coordinating, documenting and providing care for this patient excluding time spent in the performance of separately billed services or time spent by another provider/QHP. Admission and Anticipated Discharge Date Admission Date: September 11, 2025 Subjective He continues to improve. decreased SOB, weight and leg swelling. Physical Exam Physical Exam: Vitals and labs reviewed General: Well appearing, NAD HEENT: EOMI, PERRLA Neck: Supple Cardiac: RRR Lungs: CTA Abd: S NT ND BS positive : Deffered MSK: Full ROM. No obvious deformities Ext: 1+ b/l LE Edema Skin: Warm, Dry Neuro: AOx3 No focal deficits. Psych: Normal Mood Results & Data Results & Data Vital Signs (Past 12 Hours) Vital Signs Temp Pulse Pulse Resp BP Pulse Ox O2 Del Method 09/15/25 07:45 36.7 C 87 18 147/89 H 96 Room Air 09/15/25 07:07 86 09/15/25 02:40 36.6 C 90 17 113/64 93 Room Air 09/14/25 23:06 36.8 C 84 17 130/75 95 Room Air 09/14/25 22:00 81 Laboratory Results Abnormal lab results 09/15/25 09/15/25 Range/Units 05:28 06:59 RBC 3.72 L (4.70-6.10) M/uL Hgb 11.0 L (14.0-18.0) g/dL Hct 33.6 L (42.0-52.0) % Plt Count 418 H (130-400) K/uL BUN/Creatinine Ratio 20.2 H (10-20) Glucose 141 H (70-99(Fasting)) mg/dl POC Glucose 139 H (70-99) mg/dl
--- NOTE | 2025-09-15 12:06 | Cardiology Progress Note ---
Date of Service September 15, 2025 Assessment & Plan (1) Pericardial effusion: Plan: * Large circumferential pericardial effusion noted on echo 09/13/25, findings of pre tamponade with dilatation of the inferior vena cava. Differential diagnosis includes post [place] Osman's given recent STEMI last month or other. * Inflammatory markers elevated including ESR and CRP - however difficult to interpret given finding of bacteremia. * Patient underwent pericardiocentesis on 09/13/25 yielding 670 mL of dark serosanguineous fluid. Opening pericardial pressure was 12 mmHg. Pericardial fluid sent off for cell count analysis, culture. Cytology ordered and I have placed a call to the lab to confirm cytology order will be processed on 09/16/25. * Low dose prednisone 20 mg started. Nonsteroidal anti-inflammatory medication and high-dose aspirin contraindicated in this case. * Discussed addition of colchicine with nephrology, given risk of worsening renal function will avoid at present. * Patient notes feeling shortness of breath and sensation of chest heaviness is subjectively improved after pericardiocentesis. Systolic blood pressure seems to be trending at least 10 points higher since the procedure (2) Bacteremia: Plan: * 2/2 Blood cultures positive for gram-positive cocci, PCR consistent with staph epidermidis with similar findings in 2021 in 2022 * Patient on chronic immunosuppressants due to renal transplant. * Patient without liat infectious symptoms at present * Did have transvenous temporary pacemaker via the right femoral vein approach last month that remained in place for approximately 36 hours. * Has an indwelling port. This is in place due to difficult IV access and treatment with Betalacept as part of his immunosuppression therapy. This agent was stopped due to cost and he has been on Tacrolimus which he is not tolerating with GI upset symptoms. Prior auth for Betalacept recently obtained and he was to transition back to that which would once again require port access. * Has history of left foot wound/dry gangrene and 2023, Right calcaneus osteomyelitis 2021. Patient has two mild healing lacerations (base of left first toe, and lateral portion of right foot that do not appear infected). Spouse pays vigilant attention to his feet. * No vegetation on transthoracic echo this admission. * Continue antibiotics * Repeat cultures negative thus far. * Ongoing discussion/consideration with regards to whether his port needs to be removed depending on course and culture results. (3) Acute on chronic HFrEF (heart failure with reduced ejection fraction): Plan: * Ejection fraction as measured this stay in the range of 30-35% down from 40- 50% at the time of postmyocardial infarction echocardiogram dated 08/22/2025 (late presentation with 1 week of preceding symptoms of nauseousness, 3 overlapping drug-eluting stents to the mid and distal right coronary artery 08/28/2025, returned for staged PCI of obtuse marginal 09/02/2025) * LVEF may have appears acutely worse because of the pericardial effusion. * No ventricular arrhythmias on telemetry. * Suspected patient did receive IV fluids to optimize his renal function prior to his staged PCI, and probably received additional fluid resuscitation when he came back for syncopal episode. * Received furosemide 20 mg IV (one dose on 09/11 and one dose on 09/12). Hold off on further diuretics at present. * Avoiding beta kassy and other AV hollie blockers due to conduction system disease, transient 3rd degree AVB noted for 30 hours upon presentation for STEMI in 08/2025 * Avoid ACEI / ARB / Entresto in effort to optimize renal function. * Continue aspirin and prasugrel. Continue rosuvastatin. * Stable sinus rhythm noted on telemetry. No ventricular rhythm yes. No significant bradycardia. (4) Bradycardia: Plan: * Avoiding AV hollie blockers given transient third-degree AV block at the time of presentation with inferolateral STEMI last month.. No bradycardia present. He is currently wearing his ZIO monitor as previously prescribed.Counseled him that he may return to Zio patch at this point (5) Hx of kidney transplant: Plan: * concerns as noted above. Stable renal function at present. (6) Autonomic neuropathy: Plan: * Longstanding h/o orthostatic intolerance . Documented in outpatient notes dating back to 2012. Stable at present. 50 minutes spent in direct patinet care. Chela Dodd DO Admission and Anticipated Discharge Date Admission Date: September 11, 2025 Subjective Patient seen in cardiology follow-up. Feels well. Denies chest discomfort or shortness of breath. Ongoing pedal/lower leg edema noted. Blood pressure stable. Telemetry reveals sinus rhythm in the 80s. Review of Systems Review of Systems: All systems reviewed & are unremarkable except as noted in HPI & below Physical Exam Physical Exam: Temp Pulse Resp BP Pulse Ox O2 Del Method O2 Flow Rate 36.6 C 86 18 147/84 H 94 Room Air 1 09/15/25 11:39 09/15/25 11:39 09/15/25 11:39 09/15/25 11:39 09/15/25 11:39 09/15/25 11:39 09/14/25 02:55 General: no acute distress and stated age Eyes: conjunctiva are pink and non-injected, sclera clear Neck: normal jugular venous pulse, no hepatojugular reflux Chest: normal shape and normal respiratory effort Lungs:Decreased breath sounds bilaterally at the base Cardiac Exam: - regular heart sounds, no murmurs, rubs, or gallops Abdomen: abdomen soft, non-tender, no abnormal masses and no hepatosplenomegaly Extremities: 1+ bilateral pedal edema Neuro:awake, conversant, follows commands, no focal motor deficits Psych: appropriate affect and insight. Results & Data Vital Signs (Past 12 Hours) Vital Signs Temp Pulse Pulse Resp BP Pulse Ox O2 Del Method 09/15/25 11:39 36.6 C 86 18 147/84 H 94 Room Air 09/15/25 07:45 36.7 C 87 18 147/89 H 96 Room Air 09/15/25 07:07 86 09/15/25 02:40 36.6 C 90 17 113/64 93 Room Air Laboratory Results CBC 09/15/25 Range/Units 05:28 WBC 10.08 (4.8-10.8) K/ul RBC 3.72 L (4.70-6.10) M/uL Hgb 11.0 L (14.0-18.0) g/dL Hct 33.6 L (42.0-52.0) % Plt Count 418 H (130-400) K/uL Comprehensive Metabolic Panel 09/15/25 Range/Units 05:28 Sodium 138 (136-145) mmol/L Potassium 4.2 (3.5-5.1) mmol/L Chloride 103 (98-107) mmol/L Carbon Dioxide 28 (21-32) mmol/L BUN 20 (6-23) mg/dl Creatinine 0.99 (0.6-1.4) mg/dl Glucose 141 H (70-99(Fasting)) mg/dl Calcium 8.9 (8.6-10.3) mg/dl Intake and Output 09/14/25 09/15/25 09/15/25 22:59 06:59 14:59 Output Total 750 / 0 1300 / 2049 Balance -750 / -1810 -1300 / -1810 Output: Urine 750 / 0 1299 Other: Weight 117.3 kg Weight Measurement Method Standing Scale Coding Level of Care Code 13067 SUB INP/OBS CARE 3/50MIN Diagnoses Pericardial effusion I31.39 Bacteremia R78.81 Acute on chronic HFrEF (heart failure with reduced ejection fraction) I50.23 Bradycardia R00.1 Hx of kidney transplant Z94.0 Autonomic neuropathy G90.9
--- NOTE | 2025-09-15 14:36 | Nephrology Progress Note ---
Date of Service September 15, 2025 Assessment & Plan (1) Pericardial effusion: Plan: Etiology unclear differentials include: Osman syndrome; another less likely concern is certainly infectious in this transplant patient or other autoimmune process; CRP 8.5 Had pericardicentesis-- BP has improved and he is comfortable in Room air - Asses in am regarding restarting Diuretic (2) Acute on chronic HFrEF (heart failure with reduced ejection fraction): Plan: he is on RA currently and BP are maintained after pericardiocentesis agree with heart healthy diet and 1.5 L FR He appears euvolemic today. No need for lasix (3) Hx of kidney transplant: Plan: baseline creatinine 1.1; cr today 0.9 -daily BMP >continue FK current OP dose (4) Gram-positive bacteremia: Plan: Patient with Gram-positive bacteremia Source is likely his R chemoport, which he has had in place for 7 years. he is not actively getting any infusion -mecA/C gene negative -Continue ancef -ID recommending port removal. Primary teamto discuss with surgery and ID again on tuesday -Repeat blood cultures NGTD, follow Plan . Admission and Anticipated Discharge Date Admission Date: September 11, 2025 Subjective Comfortable, Denies chest discomfort or shortness of breath. Blood pressure stable. Review of Systems 2 Review of Systems: All other systems were reviewed and negative except as noted in HPI Results & Data Vital Signs (Past 12 Hours) Vital Signs Temp Pulse Pulse Resp BP Pulse Ox O2 Del Method 09/15/25 14:28 36.8 C 82 18 149/88 H 94 Room Air 09/15/25 13:48 81 09/15/25 11:39 36.6 C 86 18 147/84 H 94 Room Air 09/15/25 07:45 36.7 C 87 18 147/89 H 96 Room Air 09/15/25 07:07 86 09/15/25 02:40 36.6 C 90 17 113/64 93 Room Air Laboratory Results 09/15/25 05:28 09/15/25 05:28
[2025-09-16 06:13] LABS: Hematocrit (blood only) 34.2 % (42.0-52.0); Hemoglobin 11.1 g/dL (14.0-18.0); Mean Corpuscular Hemoglobin 29.1 pg (25.0-34.0); Mean Corpuscular Volume 89.5 fL (80.0-100.0); Platelet Count 426 K/uL (130-400); RDW Standard Deviation 42.3 fL (36.4-46.3); Red Blood Count 3.82 M/uL (4.70-6.10); White Blood Count 8.53 K/ul (4.8-10.8)
--- NOTE | 2025-09-16 06:18 | Electrocardiogram Report ---
Test Reason : Blood Pressure : */* mmHG Vent. Rate : 79 BPM Atrial Rate : 79 BPM P-R Int : 174 ms QRS Dur : 108 ms QT Int : 428 ms P-R-T Axes : 32 -70 -31 degrees QTcB Int : 490 ms Normal sinus rhythm Left axis deviation Possible Anterolateral infarct Inferior infarct QTcB >= 480 msec Abnormal ECG When compared with ECG of 11-Sep-2025 10:47, QT has lengthened Confirmed by Xavier Mejia ([id number]) on 09/16/2025 6:18:17 AM Referred By: Melva Parks Confirmed By: Xavier Mejia
[2025-09-16 06:31] LABS: Anion Gap 7.0 (3-11); Blood Urea Nitrogen 19.0 mg/dl (6-23); Calcium 9.2 mg/dl (8.6-10.3); Carbon Dioxide 29.0 mmol/L (21-32); Chloride 104.0 mmol/L (98-107); Creatinine Clr Calc Pharmacy 97.8 ml/min; Glucose 153.0 mg/dl (70-99(Fasting)); Potassium 4.3 mmol/L (3.5-5.1); Sodium 140.0 mmol/L (136-145)
--- NOTE | 2025-09-16 08:57 | XCELERA ---
[id number]
[2025-09-16 09:39] VITALS: RESP 18
--- NOTE | 2025-09-16 11:12 | Nephrology Progress Note ---
Date of Service September 16, 2025 Assessment & Plan (1) Pericardial effusion: Plan: Etiology unclear differentials include: Osman syndrome; another less likely concern is certainly infectious in this transplant patient or other autoimmune process; CRP 8.5 Had pericardicentesis-- BP has improved and he is comfortable in Room air -No need for diuretics but this can be restarted at out patient follow up with cardiology or transplant (2) Acute on chronic HFrEF (heart failure with reduced ejection fraction): Plan: he is on RA currently and BP are maintained after pericardiocentesis agree with heart healthy diet and 1.5 L FR He appears euvolemic today. No need for lasix (3) Hx of kidney transplant: Plan: baseline creatinine 1.1; cr today 1.09 -daily BMP >continue FK current OP dose (4) Gram-positive bacteremia: Plan: Patient with Gram-positive bacteremia Source is likely his R chemoport, which he has had in place for 7 years. he is not actively getting any infusion -mecA/C gene negative -Continue ancef -ID recommending port removal. Patient wants to keep his port so he can get nicholas. Extensive discussion with patient about risk of recurrent bacteremia. he says he might consider removing the port as an outpt. -Repeat blood cultures NGTD, follow Plan . Admission and Anticipated Discharge Date Admission Date: September 11, 2025 Subjective Seen for renal transplant. He has staph epi bacteremia. he feels better and wants to go home. He wants to keep his port so he can get nicholas infusion. He will decide if to remove the port on outpt basis. Review of Systems 2 Review of Systems: All other systems were reviewed and negative except as noted in HPI Physical Exam 2 Physical Exam: General exam: Appears comfortable, no acute distress HEENT: Pupils are equal and reactive to light Neck: No JVD, neck is supple trachea is midline Respiratory system: Clear breath sounds bilaterally. Gastrointestinal: Abdomen is soft, non distended, non tender, bowel sounds are present CVS: Regular rate and rhythm. No murmurs, rubs or gallops Musculoskeletal: No joint or muscle tenderness Extremities: Non tender, 1+ edema, peripheral pulses are present Neuro: Oriented, no tremors, no focal neurological deficits Skin: No rashes Results & Data Vital Signs (Past 12 Hours) Vital Signs Temp Pulse Pulse Resp BP Pulse Ox O2 Del Method 09/16/25 09:38 36.4 C L 75 18 134/82 99 Room Air 09/16/25 08:14 84 09/16/25 03:44 36.4 C L 78 17 124/79 93 Room Air 09/16/25 00:22 83 09/15/25 23:24 36.6 C 77 17 120/60 95 Room Air Laboratory Results 09/16/25 05:26 09/16/25 05:26 WBC 8.53 RBC 3.82 L MCV 89.5 MCH 29.1 MCHC 32.5 RDW Std Deviation 42.3 RDW Coeff of Dandre 12.9 Plt Count 426 H MPV 9.6
--- NOTE | 2025-09-16 11:54 | Discharge Summary ---
Discharge Summary Date of Service September 16, 2025 Principal Dx & Hospital Course #1 = Principal Diagnosis (1) Acute on chronic HFrEF (heart failure with reduced ejection fraction): (2) Anasarca: (3) CAD (coronary artery disease): (4) T2DM (type 2 diabetes mellitus): Plan This is a 59-year-old male who has significant past medical history of end- stage renal disease status post kidney transplantation in September 2018 previ ously maintained on belatacept and mycophenolate. This was interrupted due to insurance coverage and currently on mycophenolate and Prograf. He also has significant history of CAD For which he presented to ED on 08/28 with STEMI. He had an acute distal RCA occlusion in setting of known multivessel coronary artery disease. He underwent successful PCI of RCA with 3 DARCI. He was initially bradycardic requiring temporary pacing for about 24 hours. He was not a candidate for beta-blockade due to bradycardia. Ejection fraction at that time was 45%. Nephrology was consulted during stay due to history of CKD and kidney transplant status. His renal function remained stable throughout hospital stay. He did require additional left heart cath due to obstruction of OM 2 in which he underwent DARCI x 1 to OM 2. He was discharged home on 09/03. He returned to ED with acute on chronic HFrEF. Nephro cardio were consulted. he was given IV lasix once daily x 2 days with great urine output and improvement in volume status. Repeat TTE showed EF decreased to 30-35% with large pericardial effusion. He was started on prednisone by cardiology. s/p pericardiocentesis [id number] fluid. 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 Repeat TTE showing trace effusion. Blood cultures on admission also grew 4/4 staph epi. ID was consulted. He was started on ancef. Source not clear but he does have a R chemoport. Port did not look infected. ID recommended removal. Surgery was consulted for removal but did not recommend removal. Repeat cultures clear. No fevers. Discussed with patient the importance of removal again today but patient strongly declined having it removed. ID recommended 2 weeks of abx from first set of negative blood cultures. Will start him on keflex. d/w aden miner regarding dosing. keflex through 09/25. D/w nephrology and cardiology today, ok for discharge home. Prednisone x 3 days for possible pericarditis. vitals and labs are stable on day of discharge. Did discuss lifevest with Dr Dodd but it was not recommended at this time. #Acute on Chronic HFrEF #Anasarca -Not on diuretics at home -EF 45% last admission, TTE 09/11 EF down to 35% with large pericardial effusion -BNP elevated, CXR showing pulm edema -S/p IV lasix with good response -No lasix on 09/13 -On room air this AM Plan -Appreciate cardio and nephro input regarding further diuresis -Monitor renal function, IOs, daily weight closely -GDMT -Possibly DC home tomorrow if ok with cardio, nephro and ID #Pericardial effusion -Incidentally found on repeat TTE 09/11 -He denied any symptoms of myocarditis or pericarditis -Etiology unclear. Post ID carditis ? -S/p pericardiocentesis on 09/13/25 Yielding 670 mL of dark serosanguineous fluid. Plan -F/u on pericardial fluid cytology, cultures --> NGTD -Cardio started prednisone 20mg daily, continue #Positive blood cultures -4/4 blood cultures from 09/11 growing GPCs in clusters. Biofire positive for staph epi -Typically CoNS if a contaminant however 3/4 bottles is concerning for true bacteremia -There is no clear source of infection. Skin examination unrevealing -However his severe peripheral neuropathy puts him at high risk of having an unknown soft tissue cut/infection in the recent past -There were no identifiable vegetations on TTE -At this point, source is likely his R chemoport, which he has had in place for 7 years. he is not actively getting any infusion -mecA/C gene negative Plan -Continue ancef -ID recommending port removal. will discuss with surgery and ID again on tuesday -Appreciate ID input -Repeat blood cultures NGTD, follow #CAD #Recent STEMI s/p DARCI x 3 to RCA and x 1 to OM2 #Hx PAF continue med management with asa, prasugrel, crestor BB contraindicated due to bradycardia (pt required temp pacing post cath) #IDDM insulin pump at home a1c 9.0 consult glycemic pharmacy #Chronic hyponatremia sodium stable, monitor bmp #DVT ppx: SCDS for now in event pt needs pericardial procedure, await nephro/cards consults Dispo: admit to PCU with findings of pericardial effusion FULL CODE PCP: Anna Tavarez spent a total of 70 minutes coordinating, documenting, and providing care for this patient excluding time spent in the performance of separately billed services. This included personally reviewing all current laboratories and imaging studies, medical reconciliation, outpatient chart review and discussion with specialists Notes For Next Care Provider Medication Changes From Visit keflex through 09/25 Prednisone x 3 days Admission HPI Per Admitting Provider This is a 59-year-old male who has significant past medical history of end- stage renal disease status post kidney transplantation in September 2018 previously maintained on belatacept and mycophenolate. This was interrupted due to insurance coverage and currently on mycophenolate and Prograf. He also has significant history of CAD For which he presented to ED on 08/28 with STEMI. He had an acute distal RCA occlusion in setting of known multivessel coronary artery disease. He underwent successful PCI of RCA with 3 DARCI. He was initially bradycardic requiring temporary pacing for about 24 hours. He was not a candidate for beta-blockade due to bradycardia. Ejection fraction at that time was 45%. Nephrology was consulted during stay due to history of CKD and kidney transplant status. His renal function remained stable throughout hospital stay. He did require additional left heart cath due to obstruction of OM 2 in which he underwent DARCI x 1 to OM 2. He was discharged home on 09/03 and represented to ED on 09/05 secondary to syncope. It was felt syncope was secondary to orthostasis/autonomic neuropathy. He was started on midodrine. History obtained from ED provider, patient and at bedside. He reports over the last week he has been hydrating well as he was told to do so at discharge. He had not been monitoring his weights as he was not aware he was supposed to. He reports increased swelling to his lower extremities, arms/hands and bloating of his abdomen. He also reports increased shortness of breath with exertion. He denies any liat chest pain, lightheadedness, dizziness, fever, nausea, vomiting or abdominal pain. He reports normal urination without dysuria, increased urgency or frequency or hematuria. His weight is up approximately 7 lbs from discharge. Discharge Exam Vitals and labs reviewed General: Well appearing, NAD HEENT: EOMI, PERRLA Neck: Supple Cardiac: RRR Lungs: CTA Abd: S NT ND BS positive : Deffered MSK: Full ROM. No obvious deformities Ext: 1+ b/l LE Edema Skin: Warm, Dry Neuro: AOx3 No focal deficits. Psych: Normal Mood Updated Medication List Medication Instructions Recorded Confirmed Type aspirin 81 mg tablet,delayed 81 mg PO QAM 09/11/19 09/11/25 History release (Alejo Low Dose Aspirin) epinephrine 0.3 mg/0.3 mL 0.3 mg subcut DIRECTED PRN 09/11/19 09/11/25 History injection, auto-injector (EpiPen) Anaphylaxis insulin lispro 100 unit/mL 15 unit subcut AC PRN PUMP FAILURE 09/11/19 09/11/25 History subcutaneous pen (Humalog KwikPen (U-100) Insulin) rosuvastatin 20 mg tablet (Crestor) 20 mg PO QAM 09/11/19 09/11/25 History tamsulosin 0.4 mg capsule (Flomax) 0.4 mg PO HS 09/11/19 09/11/25 History mycophenolate sodium 180 mg 360 mg (2 x 180 mg) PO BID #120 04/21/22 09/11/25 Rx tablet,delayed release tabs pregabalin 225 mg capsule 225 mg PO QPM 12/08/23 09/11/25 History Lactobacillus acidophilus 10 10,000 mmu cells PO DAILY 08/28/25 09/11/25 History billion cell capsule (Probiotic) glucagon 1 mg/0.2 mL subcutaneous 1 mg subcut DIRECTED PRN 08/28/25 09/11/25 History auto-injector (Gvoke HypoPen UNRESPONSIVE W/HYPOGLYCEMIA 2-Pack) insulin glargine 100 unit/mL (3 0 unit subcut DIRECTED 08/28/25 09/11/25 History mL) subcutaneous pen (Lantus Solostar U-100 Insulin) insulin lispro 100 unit/mL 1 sliding scale dose continuous 08/28/25 09/11/25 History subcutaneous solution subcutaneous infusion USEASDIRECTD insulin lispro 100 unit/mL 1 sliding scale dose continuous 08/28/25 09/11/25 History subcutaneous solution (Humalog subcutaneous infusion USEASDIRECTD U-100 Insulin) tacrolimus 1 mg capsule, 0.5 mg PO QPM 08/28/25 09/11/25 History immediate-release tacrolimus 1 mg capsule, 1 mg PO QAM 08/28/25 09/11/25 History immediate-release prasugrel HCl 10 mg tablet 10 mg PO QAM 30 days #30 tabs 09/03/25 09/11/25 Rx cyanocobalamin (vitamin B-12) 500 500 mcg PO QAM 30 days #30 tabs 09/05/25 09/11/25 Rx mcg tablet midodrine 2.5 mg tablet 2.5 mg PO TID@0800,1200,1700 30 09/05/25 09/11/25 Rx days #90 tabs cephalexin 500 mg capsule 500 mg PO QID 10 days #40 caps 09/16/25 Rx prednisone 20 mg tablet 20 mg PO DAILY 3 days #3 tabs 09/16/25 Rx Hospital Stay Data Consultations 09/11/25 11:20 ED Decision to Admit Stat 09/11/25 11:30 Consult Nephrology Routine 09/11/25 14:35 Consult Cardiology Routine 09/12/25 05:06 Consult Infectious Diseases Routine 09/13/25 10:12 Consult General Surgery Routine Procedures Performed Operation Date: 09/13/25 14:30 Actual Procedures p Pericardiocentesis Initial - Amadou Shay MD Diagnostic Imagining Performed 09/13/25 13:48 CL Cath Imgs for PACS use only Routine Pending Results Patient Have Any Pending Studies at Discharge: No Discharge Instructions Given to Patient (Per Discharging Provider) Please finish your antibiotics as prescribed. If you have fevers or chills, please return to ED immediately. Please check your weight daily and notify your senior database programmer if you are steadily gaining weight, have difficulty breathing again. Please follow up with your PCP, delivery room clerk and senior database programmer/transplant team. Total Time Total Time Spent Total Time Spent (In Minutes): 70
--- NOTE | 2025-09-16 12:01 | Cardiology Progress Note ---
Date of Service September 16, 2025 Assessment & Plan (1) Pericardial effusion: Plan: * Large circumferential pericardial effusion noted on echo 09/13/25, findings of pre tamponade with dilatation of the inferior vena cava. Differential diagnosis includes post LA Osman's given recent STEMI last month or other. * Inflammatory markers elevated including ESR and CRP - however difficult to interpret given finding of bacteremia. * Patient underwent pericardiocentesis on 09/13/25 yielding 670 mL of dark serosanguineous fluid. Opening pericardial pressure was 12 mmHg. Pericardial fluid sent off for cell count analysis, culture. Cytology ordered and I have placed a call to the lab to confirm cytology order will be processed on 09/16/25. * Low dose prednisone 20 mg started. Nonsteroidal anti-inflammatory medication and high-dose aspirin contraindicated in this case. * Discussed addition of colchicine with nephrology, given risk of worsening renal function will avoid at present. * Patient notes feeling shortness of breath and sensation of chest heaviness is subjectively improved after pericardiocentesis. Systolic blood pressure seems to be trending at least 10 points higher since the procedure (2) Bacteremia: Plan: * 2/2 Blood cultures positive for gram-positive cocci, PCR consistent with staph epidermidis with similar findings in 2021 in 2022 * Patient on chronic immunosuppressants due to renal transplant. * Patient without liat infectious symptoms at present * Did have transvenous temporary pacemaker via the right femoral vein approach last month that remained in place for approximately 36 hours. * Has an indwelling port. This is in place due to difficult IV access and treatment with Betalacept as part of his immunosuppression therapy. This agent was stopped due to cost and he has been on Tacrolimus which he is not tolerating with GI upset symptoms. Prior auth for Betalacept recently obtained and he was to transition back to that which would once again require port access. * Has history of left foot wound/dry gangrene and 2023, Right calcaneus osteomyelitis 2021. Patient has two mild healing lacerations (base of left first toe, and lateral portion of right foot that do not appear infected). Spouse pays vigilant attention to his feet. * No vegetation on transthoracic echo this admission. * Continue antibiotics * Repeat cultures negative thus far. * Ongoing discussion/consideration with regards to whether his port needs to be removed depending on course and culture results. (3) Acute on chronic HFrEF (heart failure with reduced ejection fraction): Plan: * Ejection fraction as measured this stay in the range of 30-35% down from 40- 50% at the time of postmyocardial infarction echocardiogram dated 08/22/2025 (late presentation with 1 week of preceding symptoms of nauseousness, 3 overlapping drug-eluting stents to the mid and distal right coronary artery 08/28/2025, returned for staged PCI of obtuse marginal 09/02/2025) * LVEF may have appears acutely worse because of the pericardial effusion. * No ventricular arrhythmias on telemetry. * Suspected patient did receive IV fluids to optimize his renal function prior to his staged PCI, and probably received additional fluid resuscitation when he came back for syncopal episode. * Received furosemide 20 mg IV (one dose on 09/11 and one dose on 09/12). Hold off on further diuretics at present. * Avoiding beta kassy and other AV hollie blockers due to conduction system disease, transient 3rd degree AVB noted for 30 hours upon presentation for STEMI in 08/2025 * Avoid ACEI / ARB / Entresto in effort to optimize renal function. * Continue aspirin and prasugrel. Continue rosuvastatin. * Stable sinus rhythm noted on telemetry. No ventricular rhythm yes. No significant bradycardia. (4) Bradycardia: Plan: * Avoiding AV hollie blockers given transient third-degree AV block at the time of presentation with inferolateral STEMI last month.. No bradycardia present. He is currently wearing his ZIO monitor as previously prescribed.Counseled him that he may return to Zio patch at this point (5) Hx of kidney transplant: Plan: * concerns as noted above. Stable renal function at present. (6) Autonomic neuropathy: Plan: * Longstanding h/o orthostatic intolerance . Documented in outpatient notes dating back to 2012. Stable at present. 50 minutes spent in direct patinet care. Chela Dodd DO Plan 09/16/2025 clinically stable with issues addressed as follows 1. Large circumferential pericardial effusion status post pericardiocentesis with resolve. Already on immune suppressive therapy would continue prednisone for total of 7 days. Colchicine contraindicated Repeat echocardiogram 2 weeks 2. Status post inferolateral myocardial infarction with moderate LV dysfunction, compensated congestive failure Beta-kassy contraindicated secondary to prior conduction abnormalities Continue aspirin and prasugrel 3. Staph epidermidis bacteremia with suspected IV port source. Patient declining removal 4. Status post renal transplant per nephrology Admission and Anticipated Discharge Date Admission Date: September 11, 2025 Subjective Patient seen and examined, chart, medications, telemetry reviewed. Feels well today. Ambulatory in room. No chest pain or shortness of breath. Notes he has been feeling improved since pericardiocentesis. Mild ankle edema unchanged from usual. No irritation at port site Review of Systems Review of Systems: All systems reviewed & are unremarkable except as noted in Subjective Physical Exam Constitutional: no acute distress Results & Data Vital Signs (Past 12 Hours) Vital Signs Temp Pulse Pulse Resp BP Pulse Ox O2 Del Method 09/16/25 09:38 36.4 C L 75 18 134/82 99 Room Air 09/16/25 08:14 84 09/16/25 03:44 36.4 C L 78 17 124/79 93 Room Air 09/16/25 00:22 83 Diagnostic Findings Echocardiogram 09/16/2025 Very limited study to assess pericardial effusion demonstrates trivial pericardial effusion. Large posterolateral wall motion abnormality incidentally noted PG Care Time/CCT Total # of Minutes Spent Total Time Spent with Patient: Total time spent is greater than 50% in coordination of care (as documented) at patient's floor/unit and/or counseling patient: Coding Level of Care Code 90546 SUB INP/OBS CARE 3/50MIN Diagnoses Pericardial effusion I31.39 Bacteremia R78.81 Acute on chronic HFrEF (heart failure with reduced ejection fraction) I50.23 Bradycardia R00.1 Hx of kidney transplant Z94.0 Autonomic neuropathy G90.9
[2025-09-16 12:08] VITALS: BP 160/92; PULSE 76; TEMP 97.7; O2SAT 97
== END 2025-09-16 13:12 | disposition home or self-care (01) | DRG 280 ==
LOC: ED 09:58 → 2N 12:44 → 2S 17:53